=== PATIENT | female | born 1980 | race American Indian/Alaskan Native ===

== ENCOUNTER 2016-09-25 21:48 | Emergency (ER) | payer MEDICAID ==
--- NOTE | 2016-09-25 21:59 | ED PDOC ---
Arrival/HPI - General Time Seen by Provider: 09/25/16 21:50 Historian: Patient - History of Present Illness Narrative History of Present Illness (Text): 09/25/16 21:58 Tamiko Gill is a 36 year old female, whose past medical history includes diabetes, right foot ulcer, renal failure, and anemia, who presents to the Emergency department brought in by EMS for abnormal lab values. Patient states she was following up on bloodwork yesterday at her PMD's office after she was discharged from [facility] [place] [facility] 1 week prior. Patient states she was advised by her PMD to come to the hospital for abnormal lab values. Patient denies any fever, chills, chest pain, shortness of breath, nausea, vomiting, diarrhea, urinary symptoms, back pain, neck pain, headache, dizziness, or any other complaints. PMD: Dr. Bunch Symptom Onset: Gradual Symptom Course: Unchanged Activities at Onset: Rest, Light Context: Home Past Medical History - Provider Review Nursing Documentation Reviewed: Yes - Past History Past History: No Previous - Infectious Disease Hx of Infectious Diseases: None - Tetanus Immunization Tetanus Immunization: Unknown - Cardiac Hx Cardiac Disorders: No - Pulmonary Hx Respiratory Disorders: No - Neurological Other/Comment: NEUROPATHY - HEENT Hx HEENT Disorder: No - Renal Hx Renal Disorder: No - Endocrine/Metabolic Hx Diabetes Mellitus Type 2: Yes - Hematological/Oncological Hx Blood Disorders: No Other/Comment: RIGHT LEG DVT - Integumentary Hx Dermatological Disorder: No - Musculoskeletal/Rheumatological Hx Falls: No - Gastrointestinal Hx Gastrointestinal Disorders: No - Genitourinary/Gynecological Hx Genitourinary Disorders: No - Psychiatric Hx Depression: No Hx Emotional Abuse: No Hx Physical Abuse: No Hx Substance Use: No - Surgical History Hx Section: Yes - Suicidal Assessment Feels Threatened In Home Enviroment: No Family/Social History - Physician Review Nursing Documentation Reviewed: Yes Family/Social History: Unknown Family HX Smoking Status: Never Smoked Hx Alcohol Use: No Hx Substance Use: No Hx Substance Use Treatment: No Allergies/Home Meds Allergies/Adverse Reactions: Allergies No Known Allergies Allergy (Verified 02/17/12 17:37) Home Medications: Home Meds Medication Instructions Recorded Confirmed Insulin Aspart, Recombinant 5 unit SQ TID 09/25/16 09/25/16 [Novolog] Insulin Detemir [Levemir] 18 unit SC BID 09/25/16 09/25/16 Pantoprazole [Protonix] 40 mg PO BID 09/25/16 09/25/16 Pregabalin [Lyrica] 75 mg PO TID 09/25/16 09/25/16 Sodium Bicarbonate [Sodium 325 mg PO TID 09/25/16 09/25/16 Bicarbonate] hydrALAZINE [hydralazine 5 mg PO TID 09/25/16 09/25/16 Hydrochloride] Review of Systems - Physician Review All systems were reviewed & negative as marked: Yes - Review of Systems Constitutional: Normal. absent: Fevers Eyes: Normal ENT: Normal Respiratory: Normal. absent: SOB, Cough Cardiovascular: Normal. absent: Chest Pain Gastrointestinal: Normal. absent: Abdominal Pain, Diarrhea, Nausea, Vomiting Genitourinary Female: Normal. absent: Dysuria, Frequency, Hematuria, Urine Output Changes Musculoskeletal: Normal. absent: Back Pain, Neck Pain Skin: Normal. absent: Rash Neurological: Normal. absent: Headache, Dizziness Endocrine: Normal Hemo/Lymphatic: Normal Psychiatric: Normal Physical Exam Vital Signs Reviewed: Yes Vital Signs Temp Pulse Resp BP Pulse Ox 09/25/16 22:12 98.2 F 90 18 159/103 H 97 Temperature: Afebrile Blood Pressure: Hypertensive Pulse: Regular Respiratory Rate: Normal Appearance: Positive for: Well-Appearing, Non-Toxic, Comfortable Pain Distress: None Mental Status: Positive for: Alert and Oriented X 3 - Systems Exam Head: Present: Atraumatic, Normocephalic Pupils: Present: PERRL Extroacular Muscles: Present: EOMI Conjunctiva: Present: Normal Mouth: Present: Moist Mucous Membranes Neck: Present: Normal Range of Motion Respiratory/Chest: Present: Clear to Auscultation, Good Air Exchange. No: Respiratory Distress, Accessory Muscle Use Cardiovascular: Present: Regular Rate and Rhythm, Normal S1, S2. No: Murmurs Abdomen: Present: Normal Bowel Sounds. No: Tenderness, Distention, Peritoneal Signs Back: Present: Normal Inspection Upper Extremity: Present: Normal Inspection. No: Cyanosis, Edema Lower Extremity: Present: Normal Inspection. No: Edema Neurological: Present: GCS=15, CN II-XII Intact, Speech Normal Skin: Present: Warm, Dry, Normal Color. No: Rashes Psychiatric: Present: Alert, Oriented x 3, Normal Insight, Normal Concentration Medical Decision Making ED Course and Treatment: 09/25/16 21:58 Impression: 36 year old female presents for abnormal lab values. Differential Diagnosis included but are not limited to: renal insufficiency vs. Plan: -- Labs, lipase, troponin -- UA, urine drug screen -- Reassess and disposition Progress Notes: 09/26/16 01:29 On reevaluation the patient is in no acute distress. I have discussed the results and plan with the patient, who expresses understanding. Patient given the opportunity to ask question, all questions were answered and there is agreement with the plan to discharge the patient home. Patient is stable for discharge. Patient was instructed to follow up with physician/clinic in 1-2 days or return if symptoms persist/worsen or new concerning symptoms arise. Re-evaluation Time: 01:29 Reassessment Condition: Re-examined, Improved - Lab Interpretations Lab Results: 09/25/16 22:40 09/25/16 22:40 Lab Results 09/26/16 02:30: POC Glucose (mg/dL) 177 H 09/26/16 00:13: Urine Color Yellow, Urine Appearance Cloudy, Urine pH 6.0, Ur Specific [place] 1.020, Urine Protein 100 H, Urine Glucose (UA) Negative, Urine Ketones Negative, Urine Blood Moderate H, Urine Nitrate Negative, Urine Bilirubin Negative, Urine Urobilinogen 0.2, Ur Leukocyte Esterase Large H, Urine RBC 2 - 5, Urine WBC Tntc, Ur Epithelial Cells 0 - 2, Urine Bacteria Mod, Urine HCG, Qual Negative 09/25/16 22:40: Sodium 139, Potassium 4.0, Chloride 108 H, Carbon Dioxide 19 L, Anion Gap 16, BUN 43 H, Creatinine 3.3 H, Est GFR ( Amer) 19, Est GFR ( Non-Af Amer) 16, Random Glucose 196 H, Calcium 8.6, Total Bilirubin 0.5, AST 12 L, ALT < 6 L, Alkaline Phosphatase 79, Troponin I < 0.01, Total Protein 8.1, Albumin 3.3, Globulin 4.8, Albumin/Globulin Ratio 0.7 L, Lipase 25 09/25/16 22:40: WBC 10.8, RBC 2.90 L, Hgb 8.1 L, Hct 25.2 L, MCV 86.9, MCH 27.9 , MCHC 32.1, RDW 14.3, Plt Count 470 H, MPV 8.4, Gran % 80.4 H, Lymph % (Auto) 11.6 L, [place] % (Auto) 6.4 H, Eos % (Auto) 1.4 L, Baso % (Auto) 0.2, Gran # 8.71 H, Lymph # 1.3, [place] # 0.7 H, Eos # 0.2, Baso # 0.02 I have reviewed the lab results: Yes - Medication Orders Current Medication Orders: Discontinued Medications Cephalexin Monohydrate (Keflex) 500 mg PO STAT STA PRN Reason: Protocol Stop: 09/26/16 01:29 - Scribe Statement The provider has reviewed the documentation as recorded by the Bhanu Llamas Provider Scribe Attestation: All medical record entries made by the Scribe were at my direction and personally dictated by me. I have reviewed the chart and agree that the record accurately reflects my personal performance of the history, physical exam, medical decision making, and the department course for this patient. I have also personally directed, reviewed, and agree with the discharge instructions and disposition. Disposition/Present on Arrival - Present on Arrival Any Indicators Present on Arrival: No History of DVT/PE: Yes History of Uncontrolled Diabetes: Yes Urinary Catheter: No History Surgical Site Infection Following: None - Disposition Have Diagnosis and Disposition been Completed?: Yes Diagnosis: Renal insufficiency, Urinary tract infection Disposition: HOME/ ROUTINE Disposition Time: 01:29 Patient Problems: Current Active Problems Problem Status Onset Renal insufficiency Acute Urinary tract infection Acute Condition: GOOD Discharge Instructions (ExitCare): Urinary Tract Infection in Women (ED), Impaired Kidney Function (ED) Prescriptions: Cephalexin [Keflex] 500 mg PO BID #14 capsule Referrals: Kyler Bunch Jr., MD [Primary Care Provider] - Follow up with primary
[2016-09-25 22:13] VITALS: BMI 21.2
[2016-09-25 22:48] LABS: BASO # 0.02 K/mm3 (0.0-2.0); BASO % 0.2 % (0.0-3.0); EOS # 0.2 (0.0-0.7); EOS % 1.4 % (1.5-5.0); GRAN # 8.71 (1.4-6.5); GRAN % 80.4 % (50.0-68.0); HEMOGLOBIN 8.1 g/dL (12.0-16.0); LYMPH # 1.3 (1.2-3.4); LYMPH % 11.6 % (22.0-35.0); MEAN CELL VOLUME 86.9 fl (80.0-105.0); MEAN CORPUSCULAR HEMOGLOBIN 27.9 pg (25.0-35.0); MEAN CORPUSCULAR HGB CONC 32.1 g/dl (31.0-37.0); MEAN PLATELET VOLUME 8.4 fl (7.0-11.0); MONO # 0.7 (0.1-0.6); MONO % 6.4 % (1.0-6.0); PLATELET COUNT 470 10^3/uL (120.0-450.0); RED CELL DISTRIBUTION WIDTH 14.3 % (11.5-14.5); WHITE BLOOD COUNT 10.8 10^3/ul (4.5-11.0)
[2016-09-25 22:57] LABS: ALB/GLOB RATIO 0.7 (1.1-1.8); ALBUMIN 3.3 g/dL (3.0-4.8); AST/SGOT 12 U/L (15-39); BLOOD UREA NITROGEN 43 mg/dL (7-21); CALCIUM 8.6 mg/dL (8.4-10.5); GFR AFRICAN-AMERICAN 19; GFR NON-AFRICAN AMERICAN 16; LIPASE 25 U/L (23-300)
[2016-09-25 22:58] LABS: ALT/SGPT < 6 U/L (7-56)
[2016-09-25 23:08] LABS: TROPONIN I < 0.01 ng/mL
[2016-09-26 00:57] LABS: URINE BILIRUBIN NEGATIVE (NEGATIVE); URINE BLOOD MODERATE (NEGATIVE); URINE GLUCOSE (UA) NEGATIVE (NEGATIVE); URINE LEUKOCYTE ESTERASE LARGE Leu/uL (NEGATIVE); URINE NITRATE NEGATIVE (NEGATIVE); URINE PROTEIN 100 mg/dL (<30 mg/dL); URINE UROBILINOGEN 0.2 E.U./dL (<1 E.U./dL)
[2016-09-26 01:05] LABS: HCG,QUALITATIVE URINE NEGATIVE (NEGATIVE)
[2016-09-26 01:07] LABS: URINE COLOR YELLOW (YELLOW)
[2016-09-26 01:08] LABS: URINE APPEARANCE CLOUDY (CLEAR)
[2016-09-26 01:15] LABS: URINE BACTERIA MOD (NEG); URINE EPITHELIAL CELLS 0 - 2 /hpf (0-5); URINE WBC TNTC /hpf (0-6)
[2016-09-26 06:22] VITALS: TEMP 98; O2SAT 100
[2016-09-26 09:01] VITALS: BP 158/99; PULSE 88; RESP 18
--- NOTE | 2016-09-26 11:49 | CARD ---
APPROVED REPORT EKG Measurement Heart [id number] <Conclusion> Normal sinus rhythm Normal ECG
== END 2016-09-26 08:50 | disposition home or self-care (01) ==
LOC: ED 21:48
DX: N39.0 Urinary tract infection, site not specified (principal); N28.9 Disorder of kidney and ureter, unspecified; E11.9 Type 2 diabetes mellitus without complications

== ENCOUNTER 2016-10-26 18:41 | Inpatient (IN) | payer MEDICAID, OTHER ==
[2016-10-26 18:41] VITALS: BMI 21.2
--- NOTE | 2016-10-26 19:01 | ED PDOC ---
Arrival/HPI - General Time Seen by Provider: 10/26/16 18:48 Historian: Patient - Critical Care Critical Care Minutes: 45 minutes - History of Present Illness Narrative History of Present Illness (Text): 10/26/16 18:58 A 36 year old female whose past medical history includes, presents to the emergency department with pressure around her sinuses, abdominal pain with associated nausea and vomiting 3 days ago. She notes that she has been having bilateral flank pain, fevers, and chills. Patient denies any sore throat, cough , shortness of breath, urinary/bowel changes, new rashes, headache, vision changes or other associated symptoms. PMD: Dr. Bunch Symptom Onset: Sudden Symptom Course: Unchanged Activities at Onset: Rest, Light Context: Home Past Medical History - Provider Review Nursing Documentation Reviewed: Yes - Past History Past History: No Previous - Infectious Disease Hx of Infectious Diseases: None - Tetanus Immunization Tetanus Immunization: Unknown - Cardiac Hx Cardiac Disorders: No - Pulmonary Hx Respiratory Disorders: No - Neurological Other/Comment: NEUROPATHY - HEENT Hx HEENT Disorder: No - Renal Hx Renal Disorder: No - Endocrine/Metabolic Hx Diabetes Mellitus Type 2: Yes - Hematological/Oncological Hx Blood Disorders: No Other/Comment: RIGHT LEG DVT - Integumentary Hx Dermatological Disorder: No - Musculoskeletal/Rheumatological Hx Falls: No - Gastrointestinal Hx Gastrointestinal Disorders: No - Genitourinary/Gynecological Hx Genitourinary Disorders: No - Psychiatric Hx Depression: No Hx Emotional Abuse: No Hx Physical Abuse: No Hx Substance Use: No - Surgical History Hx Section: Yes - Suicidal Assessment Feels Threatened In Home Enviroment: No Family/Social History - Physician Review Nursing Documentation Reviewed: Yes Family/Social History: No Known Family HX Smoking Status: Never Smoked Hx Alcohol Use: No Hx Substance Use: No Hx Substance Use Treatment: No Allergies/Home Meds Allergies/Adverse Reactions: Allergies vancomycin Allergy (Verified 10/26/16 18:55) RASH Home Medications: Home Meds Medication Instructions Recorded Confirmed Insulin Aspart, Recombinant 5 unit SQ TID 09/25/16 10/26/16 [Novolog] Insulin Detemir [Levemir] 18 unit SC BID 09/25/16 10/26/16 Pantoprazole [Protonix] 40 mg PO BID 09/25/16 10/26/16 Sodium Bicarbonate [Sodium 325 mg PO TID 09/25/16 10/26/16 Bicarbonate] Review of Systems - Physician Review All systems were reviewed & negative as marked: Yes - Review of Systems Constitutional: Fevers. absent: Night Sweats ENT: Sinus Congestion. absent: Sore Throat Respiratory: absent: SOB, Cough Cardiovascular: absent: Chest Pain Gastrointestinal: Abdominal Pain, Nausea, Vomiting. absent: Diarrhea Genitourinary Female: Urine Output Changes (no changes). absent: Dysuria, Frequency, Hematuria Musculoskeletal: Back Pain (bilateral flank pain), Neck Pain Neurological: absent: Headache, Dizziness Physical Exam Vital Signs Reviewed: Yes Vital Signs Temp Pulse Resp BP Pulse Ox 10/26/16 20:00 82 20 73/48 L 100 10/26/16 19:30 84 24 68/41 L 100 10/26/16 19:13 98.5 F 82 25 H 73/39 L 100 10/26/16 19:03 95.7 F L 83 18 90/58 L 100 10/26/16 18:57 95.7 F L 88 16 77/69 L 100 Temperature: Hypothermic Blood Pressure: Hypotensive Pulse: Regular Respiratory Rate: Normal Appearance: Positive for: Ill-Appearing Pain Distress: Mild Mental Status: Positive for: Lethargic (but fully arousable) - Systems Exam Head: Present: Atraumatic, Normocephalic Pupils: Present: PERRL Conjunctiva: Present: Normal Mouth: Present: Moist Mucous Membranes Pharnyx: Present: Normal. No: ERYTHEMA, EXUDATE Neck: Present: Normal Range of Motion Respiratory/Chest: Present: Clear to Auscultation, Good Air Exchange. No: Respiratory Distress, Accessory Muscle Use Cardiovascular: Present: Regular Rate and Rhythm, Normal S1, S2. No: Murmurs Abdomen: Present: Normal Bowel Sounds. No: Tenderness, Distention, Peritoneal Signs Back: Present: CVA Tenderness (Bilateral CVA Tenderness ) Upper Extremity: Present: Normal Inspection. No: Cyanosis, Edema Lower Extremity: Present: Normal Inspection, Other (Diabetic Ulcer on Left Foot) . No: Edema Neurological: Present: GCS=15, CN II-XII Intact, Speech Normal Skin: Present: Warm, Dry, Normal Color. No: Rashes Psychiatric: Present: Oriented x 3, Lethargic Medical Decision Making ED Course and Treatment: 10/26/16 19:03 Impression: A 36 year old female presents with sinus congestion, bilateral flank pain, and neck pain. Fevers, chills, nausea, and vomiting earlier this week. Differential: sepsis vs. dka vs metabolic etiology Plan: -- EKG -- Chest X-ray -- Abdomen/Pelvis CT -- Brain CT -- Blood/Urine Cultures -- Labs -- Urinalysis -- IV Fluids -- Reassess and disposition Prior Visits: Notes and results from previous visits were reviewed. Patient was last seen in the emergency department on 09/25/2016. patient was advised by her PMD to come into the emergency department for further evaluation for abnormal lab results. Progress Notes: 10/26/16 20:15: Code sepsis called 10/26/16 20:30: case discussed with Dr. Merritt, ICU attending. Will take patient to ICU. Case was also discussed with surgical product sales consultant for trialysis catheter insertion, given persistent hypotension despite IVF administration per sepsis protocol. 10/26/16 21:10: Attempting to reach Dr. Preston for emergent dialysis. Patient's blood pressure has continued to be low despite heavy fluid administration will give additional 500 cc of fluids. 10/26/16 21:27: Case discussed with Dr. Preston. Said he will come see the patient in the emergency room and to start a sodium bicarb drip. 10/26/16 21:30: market president said he discussed with Dr. Richard and will await renal doctor to see the patient prior to catheter insertion. - Critical Care Critical Care Minutes: 45 minutes - Lab Interpretations Lab Results: 10/26/16 19:30 10/26/16 19:30 Lab Results 10/26/16 20:30: pCO2 13 L*, pO2 161.0 H, HCO3 3.1 L*, ABG pH 6.99 L*, ABG Total CO2 3.5 L, ABG O2 Saturation 99.9 H, ABG Base Excess -26.6 L, ABG Potassium 4.3 , Sodium 130.0 L, Chloride 107.0, Glucose 152 H, Lactate 0.4 L, FiO2 21.0, Arterial Blood Potassium 4.3 10/26/16 20:30: PT 13.3 H, INR 1.23 H, APTT 40.6 H 10/26/16 20:00: Urine Opiates Screen Negative, Urine Methadone Screen Negative, Ur Barbiturates Screen Negative, Ur Phencyclidine Scrn Negative, Ur Amphetamines Screen Negative, U Benzodiazepines Scrn Negative, U Oth Cocaine Metabols Negative, U Cannabinoids Screen Negative 10/26/16 20:00: Urine Color Light yellow, Urine Appearance Cloudy, Urine pH 6.0 , Ur Specific [place] 1.025, Urine Protein >=300 H, Urine Glucose (UA) Negative , Urine Ketones Negative, Urine Blood Large H, Urine Nitrate Negative, Urine Bilirubin Negative, Urine Urobilinogen 0.2, Ur Leukocyte Esterase Large H, Urine RBC Tntc, Urine WBC Tntc, Urine Bacteria Large 10/26/16 19:30: Alcohol, Quantitative < 10 10/26/16 19:30: Sodium 131 L, Chloride 104, Potassium 5.2 H, Carbon Dioxide < 5 L D, Anion Gap 27 H, BUN 157 H*, Creatinine 11.0 H*, Est GFR ( Amer) 5, Est GFR (Non-Af Amer) 4, Random Glucose 170 H, Calcium 9.2, Phosphorus 10.7 H, Magnesium 2.0, Total Bilirubin 0.6, AST 13 L, ALT 12, Alkaline Phosphatase 121, Lactate Dehydrogenase 427, Total Creatine Kinase 24 L, Troponin I < 0.01, Total Protein 9.0 H, Albumin 3.6, Globulin 5.3, Albumin/Globulin Ratio 0.7 L, Lipase 103 10/26/16 19:30: pO2 210 H, VBG pH 6.97 L*, VBG pCO2 16.0 L*, VBG HCO3 3.7 L, VBG Total CO2 4.2 L, VBG O2 Sat (Calc) 100.0 H, VBG Base Excess -26.1 L, VBG Potassium 5.4 H, Sodium 127.0 L, Chloride 101.0, Glucose 173 H, Lactate 0.6 L, FiO2 21.0, Venous Blood Potassium 5.4 H 10/26/16 19:30: WBC 25.6 H* D, RBC 2.85 L, Hgb 7.6 L, Hct 22.9 L, MCV 80.4 D, MCH 26.7, MCHC 33.2, RDW 16.2 H, Plt Count 377, MPV 8.8, Gran % 85.9 H, Lymph % (Auto) 7.1 L, [place] % (Auto) 6.1 H, Eos % (Auto) 0.7 L, Baso % (Auto) 0.2, Gran # 22.00 H, Lymph # 1.8, [place] # 1.6 H, Eos # 0.2, Baso # 0.04, ESR 146 H I have reviewed the lab results: Yes - RAD Interpretation Radiology Orders: 10/26/16 18:58 CHEST PORTABLE [RAD] Stat 10/26/16 19:00 ABD & PELVIS W/O PO OR IV CONT [CT] Stat Brain [HEAD W/O CONTRAST] [CT] Stat - EKG Interpretation Interpreted by ED Physician: Yes Type: 12 lead EKG - Medication Orders Current Medication Orders: Sodium Bicarbonate 150 meq/ (Dextrose) 1,150 mls @ 150 mls/hr IV .Q7H40M STA Stop: 10/27/16 05:08 Last Admin: 10/26/16 21:40 Dose: 150 mls/hr Discontinued Medications Clindamycin Phosphate (Cleocin) Confirm Administered Dose 600 mg .ROUTE .STK- MED ONE Stop: 10/26/16 20:29 Last Admin: 10/26/16 21:00 Dose: 600 mg Sodium Chloride 1,430 ml/ IV (SUPPLIES) 1,430 mls @ 2,857.62 mls/hr IV ONCE ONE PRN Reason: 60 ML/KG/HR Stop: 10/26/16 18:59 Last Admin: 10/26/16 19:30 Dose: 2,857.62 mls/hr Meropenem 1g/NS 100mL IVPB (Meropenem 1g/Ns 100ml Ivpb) 1 gm in 100 mls @ 100 mls/hr IVPB STAT STA PRN Reason: Protocol Stop: 10/26/16 21:18 Last Admin: 10/26/16 21:31 Dose: 100 mls/hr Clindamycin Phosphate 600 mg/ (Sodium Chloride) 54 mls @ 108 mls/hr IVPB STAT STA PRN Reason: Protocol Stop: 10/26/16 20:49 Last Admin: 10/26/16 20:49 Dose: 108 mls/hr Sodium Chloride (Sodium Chloride 0.9%) 500 mls @ 999 mls/hr IV .Q31M STA Stop: 10/26/16 21:33 Last Admin: 10/26/16 21:30 Dose: 999 mls/hr Sodium Bicarbonate 75 meq/ (Sodium Chloride) 1,075 mls @ 150 mls/hr IV .Q7H10M JERRICA Sodium Bicarbonate (Sodium Bicarbonate 8.4% (50 Meq) Syringe) 50 meq IVP ONCE ONE Stop: 10/26/16 21:16 Last Admin: 10/26/16 21:40 Dose: 50 meq - Scribe Statement The provider has reviewed the documentation as recorded by the Arturibjayro Krishnan Provider Arturibe Attestation: All medical record entries made by the Bhanu were at my direction and personally dictated by me. I have reviewed the chart and agree that the record accurately reflects my personal performance of the history, physical exam, medical decision making, and the department course for this patient. I have also personally directed, reviewed, and agree with the discharge instructions and disposition. Disposition/Present on Arrival - Present on Arrival Any Indicators Present on Arrival: Yes History of DVT/PE: Yes History of Uncontrolled Diabetes: Yes Urinary Catheter: No History Surgical Site Infection Following: None - Disposition Have Diagnosis and Disposition been Completed?: Yes Diagnosis: Renal failure, Sepsis, Metabolic acidosis, Urinary tract infection Disposition: HOSPITALIZED Disposition Time: 20:15 Patient Plan: Admission Condition: CRITICAL
[2016-10-26 19:57] LABS: VENOUS BLOOD GAS BASE EXCESS -26.1 mmol/L (0.0-2.0)
[2016-10-26 19:58] LABS: BASO # 0.04 K/mm3 (0.0-2.0); BASO % 0.2 % (0.0-3.0); EOS # 0.2 (0.0-0.7); EOS % 0.7 % (1.5-5.0); GRAN % 85.9 % (50.0-68.0); LYMPH # 1.8 (1.2-3.4); LYMPH % 7.1 % (22.0-35.0); MEAN CELL VOLUME 80.4 fl (80.0-105.0); MEAN CORPUSCULAR HEMOGLOBIN 26.7 pg (25.0-35.0); MEAN CORPUSCULAR HGB CONC 33.2 g/dl (31.0-37.0); MEAN PLATELET VOLUME 8.8 fl (7.0-11.0); MONO # 1.6 (0.1-0.6); MONO % 6.1 % (1.0-6.0); RED CELL DISTRIBUTION WIDTH 16.2 % (11.5-14.5)
[2016-10-26 20:00] LABS: VENOUS BLOOD PH 6.97 (7.32-7.43)
[2016-10-26 20:08] LABS: ALB/GLOB RATIO 0.7 (1.1-1.8); ALKALINE PHOSPHATASE 121 U/L (38-126); ALT/SGPT 12 U/L (7-56); AST/SGOT 13 U/L (14-36); BILIRUBIN,TOTAL 0.6 mg/dL (0.2-1.3); CALCIUM 9.2 mg/dL (8.4-10.5); CHLORIDE 104 mmol/L (98-107); GFR AFRICAN-AMERICAN 5; GLUCOSE,RANDOM 170 mg/dL (70-110); LIPASE 103 U/L (23-300); PHOSPHOROUS 10.7 mg/dL (2.5-4.5); POTASSIUM 5.2 mmol/L (3.6-5.0); SODIUM 131 mmol/L (132-148)
[2016-10-26 20:11] LABS: HEMATOCRIT 22.9 % (36.0-48.0); WHITE BLOOD COUNT 25.6 10^3/ul (4.5-11.0)
[2016-10-26] MEDS ORDERED: Meropenem 1g/NS 100mL IVPB 1 GM/100 ML PIGGYBACK IVPB STA (20:19)
[2016-10-26 20:23] LABS: URINE BILIRUBIN NEGATIVE (NEGATIVE); URINE BLOOD LARGE (NEGATIVE); URINE GLUCOSE (UA) NEGATIVE (NEGATIVE); URINE KETONE NEGATIVE (NEGATIVE); URINE LEUKOCYTE ESTERASE LARGE Leu/uL (NEGATIVE); URINE PROTEIN >=300 mg/dL (<30 mg/dL); URINE UROBILINOGEN 0.2 E.U./dL (<1 E.U./dL)
[2016-10-26 20:24] LABS: URINE APPEARANCE CLOUDY (CLEAR); URINE COLOR LIGHT YELLOW (YELLOW)
[2016-10-26 20:28] LABS: URINE RBC TNTC /hpf (0-2); URINE WBC TNTC /hpf (0-6)
[2016-10-26 20:28] LABS: BLOOD UREA NITROGEN 157 mg/dL (7-21); CARBON DIOXIDE < 5 mmol/L (21-33); TROPONIN I < 0.01 ng/mL
[2016-10-26] MEDS ORDERED: Clindamycin 150 mg/mL Inj ONE (20:28)
[2016-10-26 20:29] LABS: URINE BACTERIA LARGE (NEG)
[2016-10-26 20:39] LABS: ARTERIAL BLOOD GAS HCO3 3.1 mmol/L (21-28); ARTERIAL BLOOD GAS PH 6.99 (7.35-7.45)
[2016-10-26] MEDS ORDERED: Sodium Chloride 0.9% 500 ML IV STA (21:03)
[2016-10-26] MEDS ORDERED: Sodium Bicarbonate (8.4%) 50 Meq Syringe IVP ONE (21:15)
[2016-10-26 21:23] LABS: INR 1.23 (0.93-1.08); PARTIAL THROMBOPLASTIN TIME 40.6 Seconds (23.7-30.8)
[2016-10-26] MEDS ORDERED: Sodium Bicarbonate 8.4% 150 MEQ in Dextrose 5% In Water 1,000 ML IV STA (21:29)
[2016-10-26] MEDS ORDERED: Insulin Detemir 100 units/ml Vial (Levemir) SC SCH (22:15)
[2016-10-26] MEDS ORDERED: Pantoprazole 40 mg EC Tab PO SCH (22:15)
--- NOTE | 2016-10-26 22:44 | CP.PCM.HP ---
<Fortino Holman - Last Filed: 10/27/16 00:16> History of Present Illness - History of Present Illness History of Present Illness: H&P/ICU Consult for Dr. Merritt 36 F with a PMHx of HTN, IDDM, Rt leg DVT and anemia presenting [place] [facility] with complaints of abdominal pain x 3 days. Pt states that she has been having abdominal pain that radiates to her flanks b/l for 3 days with associated nausea and vomitting. Pt started to become feverish and experience chills and more fatigued and decided to seek medical attention. Pt also stated that she has been feeling an increased facial/sinus pressure as well for the past week as well as cloudy urine. Pt noted that she has a hx of diabetic ulcer on her rt ft. Pt was seen and examined at bedside. Pt is shivering and has se hugger on. Pt states that she is still experiencing abdominal pain rated at a 6/10. Sorenson catheter was placed. Pt was hypotensive in the ED and subsequently received 2 L NS bolus and was started a 3rd L with a bicarb drip 150mEq, with vitals beginning to stablize. Patient denies any sore throat, cough, shortness of breath, urinary/bowel changes, new rashes, headache, vision changes or other associated symptoms. PMHx: HTN, DM2, Anemia, Rt leg DVT PSHx: , Rt leg vasc surgery Family Hx: Non-Contributory SHx: Denied tobacco/etoh/illicit drugs, pt is wheelchair bound Allergies: Vancomycin Home Meds: ferrous sulfate 324 mg TID, insulin aspart 5 u TID, Levemir 18 u BID , Protonix 40mg BID, Sodium Bicarbonate 325 mg TID PMD: Dr. Bunch Present on Admission - Present on Admission Any Indicators Present on Admission: Yes History of DVT/PE: Yes History of Uncontrolled Diabetes: Yes Review of Systems - Review of Systems Review of Systems: As per HPI otherwise negative Past Patient History - Infectious Disease Hx of Infectious Diseases: None - Tetanus Immunizations Tetanus Immunization: Unknown - Past Social History Smoking Status: Never Smoked - CARDIAC Hx Cardiac Disorders: No - PULMONARY Hx Respiratory Disorders: No - NEUROLOGICAL Other/Comment: NEUROPATHY - HEENT Hx HEENT Problems: No - RENAL Hx Chronic Kidney Disease: No - ENDOCRINE/METABOLIC Hx Diabetes Mellitus Type 2: Yes - HEMATOLOGICAL/ONCOLOGICAL Hx Blood Disorders: No Other/Comment: RIGHT LEG DVT - INTEGUMENTARY Hx Dermatological Problems: No - MUSCULOSKELETAL/RHEUMATOLOGICAL Hx Falls: No - GASTROINTESTINAL Hx Gastrointestinal Disorders: No - GENITOURINARY/GYNECOLOGICAL Hx Genitourinary Disorders: No - PSYCHIATRIC Hx Depression: No Hx Emotional Abuse: No Hx Physical Abuse: No Hx Substance Use: No - SURGICAL HISTORY Hx Section: Yes Meds Allergies/Adverse Reactions: Allergies Allergy/AdvReac Type Severity Reaction Status Date / Time vancomycin Allergy RASH Verified 10/26/16 18:55 Physical Exam - Constitutional Appears: Chronically Ill - Head Exam Head Exam: ATRAUMATIC, NORMAL INSPECTION, NORMOCEPHALIC - Eye Exam Eye Exam: EOMI, Normal appearance, PERRL Pupil Exam: NORMAL ACCOMODATION, PERRL - ENT Exam ENT Exam: Mucous Membranes Moist, Normal Exam - Neck Exam Neck exam: Positive for: Normal Inspection - Respiratory Exam Respiratory Exam: Clear to Auscultation Bilateral, NORMAL BREATHING PATTERN - Cardiovascular Exam Cardiovascular Exam: REGULAR RHYTHM, +S1, +S2 - GI/Abdominal Exam GI & Abdominal Exam: Normal Bowel Sounds, Soft. absent: Tenderness - Extremities Exam Extremities exam: Positive for: normal inspection - Back Exam Back exam: CVA tenderness (L), CVA tenderness (R) - Neurological Exam Neurological exam: Alert, CN II-XII Intact, Oriented x3, Reflexes Normal - Psychiatric Exam Psychiatric exam: Normal Affect, Normal Mood - Skin Skin Exam: Dry, Intact, Normal Color, Warm Results - Vital Signs Recent Vital Signs: Last Vital Signs Temp 90.4 F L 10/26/16 21:55 Pulse 80 10/26/16 21:55 Resp 10 L 10/26/16 21:55 BP 117/59 L 10/26/16 21:55 Pulse Ox 100 10/26/16 21:55 - Labs Result Diagrams: 10/26/16 23:45 10/26/16 19:30 Assessment & Plan - Assessment and Plan (Free Text) Assessment: 36 F with PMHx of HTN, uncontrolled IDDM and rt LE DVT admitted to the icu for septic shock 2/2 likely UTI/pyelonephritis, renal failure and metabolic acidosis. Neuro: Lethargic but arousable AAOx3, CTH negative of acute intracranial pathology hypothermic, se hugger target normothermia, continue to monitor Pulm: Stable, 02 sat 100% on RA maintain 02 sat >92% HOB >30 CXR negative for pulm pathology CVS: Septic shock fluid responsive received approx 2.5L NS bolus Likely due to UTI , on meropenem 1g should re-dose q24h for CrCl < 10 ml/min no pressors required at this time continue to monitor for HD instability, surgery consulted, Dr. Richard for trialysis catheter placement in case need emergent [facility] /pressors Renal: EMMETT on CKD in the setting of septic shock approx 200 cc urine uop with straight cath, sorenson in place, monitor I&Os Severe metabolic acidosis, Nephrology Dr. Preston consulted, continue to monitor acidosis - may require emergent dialysis fu random urine for sodium and creatinine Trend renal function with aggressive fluid resuscitiation GI NPO GI ppx with protonix Heme Leukocytosis 2/2 sepsis 2/2 UTI Merrem abx ID consulted, Dr. Lam ID UTI on merrem, ID consulted Dr. Lam hypothermic lactic acid wnl fu pct Endo hx IDDM Fu A1c SSI GI DVT ppx reviewed Seen reviewed and discussed with attending <Miguel Merritt Q - Last Filed: 10/27/16 01:08> Results - Vital Signs Recent Vital Signs: Last Vital Signs Temp 90.4 F L 10/26/16 21:55 Pulse 80 10/26/16 21:55 Resp 10 L 10/26/16 21:55 BP 117/59 L 10/26/16 21:55 Pulse Ox 100 10/26/16 21:55 - Labs Result Diagrams: 10/26/16 23:45 10/26/16 23:45 Labs: Laboratory Results - last 24 hr 10/26/16 10/26/16 10/26/16 23:45 23:45 23:45 WBC 23.7 H RBC 2.83 L Hgb 7.6 L Hct 22.4 L MCV 79.2 L MCH 26.9 MCHC 33.9 RDW 16.0 H Plt Count 364 MPV 8.7 pO2 78 H VBG pH 7.07 L* VBG pCO2 17.0 L* VBG HCO3 4.9 L VBG Total CO2 5.4 L VBG O2 Sat (Calc) 98.3 H VBG Base Excess -23.3 L VBG Potassium 4.6 Sodium 133 130.0 L Chloride 107 107.0 Glucose 249 H Lactate 0.5 L FiO2 21.0 Potassium 4.5 Carbon Dioxide 5 L D Anion Gap 26 H BUN 144 H* Creatinine 10.0 H* Est GFR ( Amer) 5 Est GFR (Non-Af Amer) 4 Random Glucose 235 H Lactic Acid Calcium 8.0 L Total Bilirubin 0.6 AST 12 L ALT 9 Alkaline Phosphatase 108 Total Protein 8.1 Albumin 3.0 Globulin 5.1 Albumin/Globulin Ratio 0.6 L Lipase 78 Venous Blood Potassium 4.6 10/26/16 23:45 WBC RBC Hgb Hct MCV MCH MCHC RDW Plt Count MPV pO2 VBG pH VBG pCO2 VBG HCO3 VBG Total CO2 VBG O2 Sat (Calc) VBG Base Excess VBG Potassium Sodium Chloride Glucose Lactate FiO2 Potassium Carbon Dioxide Anion Gap BUN Creatinine Est GFR ( Amer) Est GFR (Non-Af Amer) Random Glucose Lactic Acid 0.6 L Calcium Total Bilirubin AST ALT Alkaline Phosphatase Total Protein Albumin Globulin Albumin/Globulin Ratio Lipase Venous Blood Potassium Attending/Attestation - Attestation I have personally seen and examined this patient.: Yes I have fully participated in the care of the patient.: Yes I have reviewed all pertinent clinical information: Yes Notes (Text): 10/27/16 00:54 I agree with the above mentioned note and exam by the resident with the addition /exception of the followin36 y/o female with a PMHx Htn, DM (uncontrolled), history of DVT, bed bound and deconditioned with chronic lower extremity diabetic foot wounds, CKD diagnosed a few months ago who presented to the ED with the complaints of abdominal pain, lethargy and vomiting. Patient was found to have EMMETT in the ED with a BUN/Cr of 157/11.0. She was also hypotensive as well, responded appropriately to IVF bolus administration (Severe sepsis, not septic shock). In the ED straight cath obtained approximately 200cc of cloudy urine. Consideration for emergent dialysis was made and Nephrology was consulted. Discussed the case with Dr. Preston who came in and saw the patient at bedside. Acidosis improved slightly after IVF hydration; will continue to monitor her overnight for possible urine output and improvement in her acidosis. In the event that she does not improve , she is likely to be started on HD later today (Sun-10/27/16). I personally observed her CT of the abdomen, there does appear to be some perinephric stranding (R>L) indicating likely pyelonephritis, however preliminary reading by Vrgeorgi does not report any. At the least, she has urosepsis secondary to acute cystitis +/- pyelonephritis and has received clindamycin and Merrem in the ED (allergic to Vanco). ID Consulted for further antibiotics, given her Cr Cl at this time, she is not due for another dose until later today in the afternoon. Will continue hydrating with bicarb drip and give her an additional IVF bolus now. labs and images reviewed total time of care: 55 minutes
[2016-10-26] MEDS: Insulin Lispro (humaLOG) MEDIUM Coverage SC SCH (22:45)
--- NOTE | 2016-10-26 23:11 | CT ---
EXAM: CT Head Without Intravenous Contrast EXAM DATE/TIME: 10/26/2016 7:00 PM CLINICAL HISTORY: 36 years old, female; Pain; Headache TECHNIQUE: Axial computed tomography images of the head/brain without intravenous contrast. All CT scans at this facility use one or more dose reduction techniques, viz.: automated exposure control; ma/kV adjustment per patient size (including targeted exams where dose is matched to indication; i.e. head); or iterative reconstruction technique. COMPARISON: There are no prior studies for comparison. FINDINGS: Artifacts: Streak artifact degrades image quality. Brain: Ventricles are normal in size and configuration. There is no midline shift. There is a cavum septum pellucidum.There are no intra-axial or extra-axial mass lesions or areas of hemorrhage. There are no abnormal fluid collections. Odonnell-white differentiation is maintained. Ventricles: See above. Bones: Cranial vault is intact. Soft tissues: unremarkable Sinuses: There is no acute sinusitis. Ears and mastoids: Middle ears and mastoids are unremarkable Orbits: Orbital contents are unremarkable. IMPRESSION: No acute intracranial abnormality
--- NOTE | 2016-10-26 23:16 | CP.PCM.CON ---
History of Present Illness - History of Present Illness History of Present Illness: 36 yo F w/ pmh of dm w/ neuropathy, CKD, previous DVT, chronically bedbound secondary to leg weakness, with L foot ulcers, presented to ED this evening with nausea/vomiting, abd/flank pain and sinus pain, found to be profoundly hypotensive, have acute renal failure and severe metabolic acidosis, nephrology being consulted for possible emergent dialysis; Patient reports that about 1 week ago she noticed urine becoming cloudy but denies dysuria; she subsequently developed bilateral flank pain and has decreased urine output since past few days; ; vomiting started 3 days ago although none today; has not been eating since then; says throat has been very dry and even drinking water causes discomfort; also reporting new onset of bilateral sinus pain; In ED, patient found to have SBP in 70's and hypothermic; was given ~2.5L of NS bolus with improvement in BP; ~200 cc urine was obtained via straight cath before having sorenson placed; Past hospitalization: Admitted in [facility] [place] for around 1 week due to acidosis; was told then about having kidney disease, placed on bicarb tabs and was subsequently referred to [employer] office instructor who she saw only once; PMH: as above; bedbound since several months; Review of Systems - Constitutional Constitutional: As Per HPI, Chills - EENT Eyes: Change in Vision Nose/Mouth/Throat: As Per HPI, Sinus Pain - Cardiovascular Cardiovascular: Palpitations - Respiratory Respiratory: absent: Dyspnea - Gastrointestinal Gastrointestinal: As Per HPI, Abdominal Pain, Nausea, Vomiting. absent: Diarrhea - Genitourinary Genitourinary: As Per HPI, Pyuria - Musculoskeletal Musculoskeletal: absent: Arthralgias, Back Pain - Integumentary Additional comments: L foot ulcers reportedly healing well; - Neurological Neurological: Tingling Past Patient History - Infectious Disease Hx of Infectious Diseases: None - Tetanus Immunizations Tetanus Immunization: Unknown - Past Medical History & Family History Past Medical History?: Yes Pertinent Family History: Denies anyone with kidney disease; - Past Social History Smoking Status: Never Smoked - CARDIAC Hx Cardiac Disorders: No - PULMONARY Hx Respiratory Disorders: No - NEUROLOGICAL Other/Comment: NEUROPATHY - HEENT Hx HEENT Problems: No - RENAL Hx Chronic Kidney Disease: No - ENDOCRINE/METABOLIC Hx Diabetes Mellitus Type 2: Yes - HEMATOLOGICAL/ONCOLOGICAL Hx Blood Disorders: No Other/Comment: RIGHT LEG DVT - INTEGUMENTARY Hx Dermatological Problems: No - MUSCULOSKELETAL/RHEUMATOLOGICAL Hx Falls: No - GASTROINTESTINAL Hx Gastrointestinal Disorders: No - GENITOURINARY/GYNECOLOGICAL Hx Genitourinary Disorders: No - PSYCHIATRIC Hx Depression: No Hx Emotional Abuse: No Hx Physical Abuse: No Hx Substance Use: No - SURGICAL HISTORY Hx Section: Yes Meds Allergies/Adverse Reactions: Allergies Allergy/AdvReac Type Severity Reaction Status Date / Time vancomycin Allergy RASH Verified 10/26/16 18:55 - Medications Medications: Current Medications Heparin Sodium (Porcine) (Heparin) 5,000 units SC Q8 JERRICA PRN Reason: Protocol Sodium Bicarbonate 150 meq/ (Dextrose) 1,150 mls @ 150 mls/hr IV .Q7H40M STA Stop: 10/27/16 05:08 Last Admin: 10/26/16 21:40 Dose: 150 mls/hr Insulin Human Lispro (Humalog Med) 0 units SC ACHS JERRICA PRN Reason: Protocol Pantoprazole Sodium (Protonix Inj) 40 mg IVP Q12 COUNT INCLUDES THE [facility] Physical Exam - Constitutional Appears: No Acute Distress - Head Exam Head Exam: NORMOCEPHALIC - Eye Exam Eye Exam: absent: Scleral icterus - ENT Exam ENT Exam: Mucous Membranes Dry. absent: Mucous Membranes Moist Additional comments: b/l maxillary sinus tenderness; - Neck Exam Neck exam: Negative for: Lymphadenopathy - Respiratory Exam Respiratory Exam: Clear to Auscultation Bilateral, NORMAL BREATHING PATTERN. absent: Rales, Rhonchi, Wheezes, Respiratory Distress - Cardiovascular Exam Cardiovascular Exam: REGULAR RHYTHM, +S1, +S2 - GI/Abdominal Exam GI & Abdominal Exam: Soft, Tenderness Additional comments: bilateral CVA tenderness; - Exam Additional comments: sorenson in place draining small amount of pus in urine; - Extremities Exam Extremities exam: Positive for: normal capillary refill, pedal pulses present - Back Exam Back exam: CVA tenderness (L), CVA tenderness (R) - Neurological Exam Neurological exam: Alert, Oriented x3 Additional comments: mentating well; - Psychiatric Exam Psychiatric exam: Normal Affect, Normal Mood - Skin Skin Exam: Warm Results - Vital Signs Recent Vital Signs: Last Vital Signs Temp 90.4 F L 10/26/16 21:55 Pulse 80 10/26/16 21:55 Resp 10 L 10/26/16 21:55 BP 117/59 L 10/26/16 21:55 Pulse Ox 100 10/26/16 21:55 - Labs Result Diagrams: 10/26/16 23:45 10/26/16 23:45 - Imaging and Cardiology Chest x-ray Status: Image reviewed by me Additional comment: Lungs clear; Assessment & Plan (1) Acute renal failure Assessment and Plan: EMMETT on CKD in the setting of profound hypotension and likely sepsis; BP already much improved but awaiting improvement in urine output with IVF; pre-renal etiology may have already progressed to ATN; Severe metabolic acidosis with pH dangerously low; however, lungs are clear and patient with no need for additional FIO2; only mild hyperkalemia; While efficient HD can quickly improve acidosis, with patient's degree of uremia there is a substantial risk of dialysis dysequilibrium if dialyzed aggressively; -If UO does not improve and FIO2 requirement increases substantially, or acidosis remains unchanged over next 1-2 hours, will initiate LEGISLATIVE ANALYST emergently; otherwise, if remains oliguric, will initiate LEGISLATIVE ANALYST slowly; -Continue aggressive volume resuscitation -Random urine for sodium and creatinine; Status: Acute (2) CKD (chronic kidney disease) Assessment and Plan: Late CKD IV per labs from last month (although unclear if there was acute component at that time); 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, likely due to diabetic nephropathy (large kidneys on CT are also suggestive); Should pursue workup to look for other possible causes; -checking C3 and C4, hep B and C serologies, HIV Ab; -random urine for protein, microalbumin and creatinine; Status: Acute (3) Anemia Assessment and Plan: Likely due to advanced CKD; -checking iron studies, may benefit from EPO; Status: Acute (4) Metabolic acidosis Assessment and Plan: Severe, increased anion gap metabolic acidosis in the setting of advanced renal insufficiency; lactate normal and no indication that there is ongoing acid production; started on bicarb drip (D5W w/ 150 meq NaHCO3 at 150 cc/hr); may need HD to correct if UO not improving; Status: Acute (5) Sepsis Assessment and Plan: Likely due to UTI with pus in urine; agree with starting meropenem 1g, should re -dose q24h for CrCl < 10 ml/min; no renal dose adjustment needed for clinda; Status: Acute
--- NOTE | 2016-10-26 23:19 | CT ---
EXAM: CT Abdomen and Pelvis Without Intravenous Contrast EXAM DATE/TIME: 10/26/2016 7:00 PM CLINICAL HISTORY: 36 years old, female; Pain; Abdominal pain; Flank; Other: Bilateral; Prior surgery; Surgery type: ; Additional info: B/l flank pain TECHNIQUE: Axial computed tomography images of the abdomen and pelvis without intravenous contrast. All CT scans at this facility use one or more dose reduction techniques, viz.: automated exposure control; ma/kV adjustment per patient size (including targeted exams where dose is matched to indication; i.e. head); or iterative reconstruction technique. Coronal and sagittal reformatted images were created and reviewed. COMPARISON: There are no prior studies for comparison. FINDINGS: Artifacts: Streak artifact degrades image quality. There is asymmetric patient positioning Lower thorax: Heart size is normal. There is trace pericardial fluid. There is minimal scarring at the lung bases. ABDOMEN: Liver: unremarkable Gallbladder and bile ducts: Gallbladder is partially distended. There is pericholecystic fluid/edema. Common duct is difficult to identify. Pancreas: Pancreas is atrophic. Spleen: unremarkable Adrenals: There is mild adrenal thickening bilaterally. Kidneys and ureters: Kidneys and ureters are unremarkable. Stomach and bowel: Stomach is incompletely distended which accentuates the gastric wall.Bowel rotation is normal. There is no small bowel obstruction. Distal small bowel is mildly distended with fluid.Appendix and terminal ileum are unremarkable.Colon is incompletely distended which limits evaluation. There is diverticulosis Appendix: See above. PELVIS: Bladder: Bladder is almost completely empty. A Townsend catheter coils in the bladder. Reproductive: Uterus and adnexal structures are unremarkable. ABDOMEN and PELVIS: Intraperitoneal space:There is no significant fluid in the pelvis.There is no free air. Bones/joints: There is a poorly defined sclerotic lesion at L1. There is L5 spondylolysis with minimal spondylolisthesis L5 on S1. There is posterior disc bulging L5-S1. Soft tissues: There is mild body wall edema. Vasculature: Vascular structures are unremarkable. Lymph nodes: There is Left inguinal adenopathy. There are prominent mesenteric nodes. There is para-aortic adenopathy. IMPRESSION: Limited evaluation of solid viscera and bowel due to lack of intravenous contrast; minimal pericholecystic fluid; no renal or ureteral stones or hydronephrosis; no CT findings of appendicitis or diverticulitis Additional findings as described above.
[2016-10-27 00:04] LABS: VENOUS BLOOD GAS BASE EXCESS -23.3 mmol/L (0.0-2.0); VENOUS BLOOD PH 7.07 (7.32-7.43)
[2016-10-27 00:14] LABS: MEAN CELL VOLUME 79.2 fl (80.0-105.0); MEAN CORPUSCULAR HEMOGLOBIN 26.9 pg (25.0-35.0); MEAN CORPUSCULAR HGB CONC 33.9 g/dl (31.0-37.0); MEAN PLATELET VOLUME 8.7 fl (7.0-11.0); WHITE BLOOD COUNT 23.7 10^3/ul (4.5-11.0)
[2016-10-27 00:15] LABS: ALB/GLOB RATIO 0.6 (1.1-1.8); BILIRUBIN,TOTAL 0.6 mg/dL (0.2-1.3); HEMATOCRIT 22.4 % (36.0-48.0); POTASSIUM 4.5 mmol/L (3.6-5.0); TOTAL PROTEIN 8.1 g/dL (5.8-8.3)
--- NOTE | 2016-10-27 00:16 | CP.PCM.CON ---
History of Present Illness - History of Present Illness History of Present Illness: General Surgery Consult Re: abdominal pain, possible HD cath placement HPI: 36Fpresenting to ER C/O abd pain x 3 days. Pain radiates to her back, rated 7-8/10, with associated nausea and NBNB emesis. + F/C, fatigue, and weakness so she decided to seek medical attention. + facial/sinus pressure x1 week. Sorenson placed with cloudy white urine. + urinary frequency and pressure. Denied dysuria, hematuria. Pt was hypotensive in the ED and subsequently received 2 L NS bolus and a 3rd L with a bicarb drip 150mEq, with vitals beginning to stablize. Denies sore throat, cough, shortness of breath, palpitations, vision changes or other associated symptoms. PMH: HTN, DM2, Anemia, R leg DVT, R diabetic foot ulcers x 3 PSH: SH: Denies tobacco/etoh/illicit drugs All: Vancomycin Meds: See MAR Review of Systems - Review of Systems All systems: reviewed and no additional remarkable complaints except (as per HPI ) Past Patient History - Infectious Disease Hx of Infectious Diseases: None - Tetanus Immunizations Tetanus Immunization: Unknown - Past Medical History & Family History Past Medical History?: Yes - Past Social History Smoking Status: Never Smoked - CARDIAC Hx Cardiac Disorders: No - PULMONARY Hx Respiratory Disorders: No - NEUROLOGICAL Other/Comment: NEUROPATHY - HEENT Hx HEENT Problems: No - RENAL Hx Chronic Kidney Disease: No - ENDOCRINE/METABOLIC Hx Diabetes Mellitus Type 2: Yes - HEMATOLOGICAL/ONCOLOGICAL Hx Blood Disorders: No Other/Comment: RIGHT LEG DVT - INTEGUMENTARY Hx Dermatological Problems: No - MUSCULOSKELETAL/RHEUMATOLOGICAL Hx Falls: No - GASTROINTESTINAL Hx Gastrointestinal Disorders: No - GENITOURINARY/GYNECOLOGICAL Hx Genitourinary Disorders: No - PSYCHIATRIC Hx Depression: No Hx Emotional Abuse: No Hx Physical Abuse: No Hx Substance Use: No - SURGICAL HISTORY Hx Section: Yes Meds Allergies/Adverse Reactions: Allergies Allergy/AdvReac Type Severity Reaction Status Date / Time vancomycin Allergy RASH Verified 10/26/16 18:55 - Medications Medications: Current Medications Heparin Sodium (Porcine) (Heparin) 5,000 units SC Q8 JERRICA PRN Reason: Protocol Sodium Bicarbonate 150 meq/ (Dextrose) 1,150 mls @ 150 mls/hr IV .Q7H40M STA Stop: 10/27/16 05:08 Last Admin: 10/26/16 21:40 Dose: 150 mls/hr Insulin Human Lispro (Humalog Med) 0 units SC ACHS JERRICA PRN Reason: Protocol Pantoprazole Sodium (Protonix Inj) 40 mg IVP Q12 JERRICA Physical Exam - Constitutional Appears: Cachectic, Other (shivering) - Head Exam Head Exam: ATRAUMATIC, NORMOCEPHALIC - Eye Exam Eye Exam: EOMI. absent: Scleral icterus - ENT Exam ENT Exam: Mucous Membranes Dry Additional comments: trachea midline - Respiratory Exam Respiratory Exam: NORMAL BREATHING PATTERN. absent: Accessory Muscle Use, Respiratory Distress - Cardiovascular Exam Cardiovascular Exam: RRR, +S1, +S2 - GI/Abdominal Exam GI & Abdominal Exam: Guarding, Soft, Tenderness (throughout abd). absent: Distended, Firm, Rigid - Rectal Exam Rectal Exam: Deferred - Exam Additional comments: sorenson in place, cloudy white urine in tube - Extremities Exam Extremities exam: Negative for: calf tenderness, pedal edema Additional comments: R foot with 1 heel ulcer and 2 on the sole of the foot. all with black eschars being treated effectively with santyl - Back Exam Back exam: CVA tenderness (L), CVA tenderness (R) - Neurological Exam Neurological exam: Alert, Oriented x3 - Skin Skin Exam: Dry, Warm Results - Vital Signs Recent Vital Signs: Last Vital Signs Temp 90.4 F L 10/26/16 21:55 Pulse 80 10/26/16 21:55 Resp 10 L 10/26/16 21:55 BP 117/59 L 10/26/16 21:55 Pulse Ox 100 10/26/16 21:55 - Labs Result Diagrams: 10/26/16 19:30 10/26/16 19:30 - Imaging and Cardiology CT scan - abdomen Status: Image reviewed by me, Report reviewed by me Assessment & Plan - Assessment and Plan (Free Text) Assessment: 36F with septic shock and acute on chronic kidney injury from UTI Plan: IVF resuscitation Nephro on board, will place HD cath if Nephro determines HD necessary. Abx Monitor sorenson output May need urology consult Monitor vitals Serial abd exams Analgesia PRN D/W Dr. Jose Manuel Mauricio PGY4
[2016-10-27] MEDS ORDERED: Sodium Chloride 0.9% 1,000 ML IV STA ×3 (01:14→11:14)
[2016-10-27] MEDS: Morphine 2 mg/ml ISec IVP PRN ×2 (05:29→17:33)
[2016-10-27 06:04] LABS: VENOUS BLOOD GAS BASE EXCESS -20.1 mmol/L (0.0-2.0); VENOUS BLOOD PH 7.17 (7.32-7.43)
[2016-10-27 06:23] LABS: ALB/GLOB RATIO 0.7 (1.1-1.8); ALKALINE PHOSPHATASE 95 U/L (38-126); ALT/SGPT 11 U/L (7-56); AST/SGOT 22 U/L (14-36); BILIRUBIN,TOTAL 0.5 mg/dL (0.2-1.3); CALCIUM 7.7 mg/dL (8.4-10.5); CARBON DIOXIDE 6 mmol/L (21-33); CHLORIDE 108 mmol/L (98-107); GFR AFRICAN-AMERICAN 6; GLUCOSE,RANDOM 275 mg/dL (70-110); MAGNESIUM 1.6 mg/dL (1.7-2.2); PHOSPHOROUS 8.3 mg/dL (2.5-4.5); POTASSIUM 3.9 mmol/L (3.6-5.0); SODIUM 133 mmol/L (132-148); TOTAL PROTEIN 7.3 g/dL (5.8-8.3)
[2016-10-27 06:29] LABS: IRON 117 ug/dL (45-180)
[2016-10-27 06:33] LABS: BASO # 0.01 K/mm3 (0.0-2.0); BASO % 0.1 % (0.0-3.0); EOS # 0.1 (0.0-0.7); EOS % 0.5 % (1.5-5.0); GRAN # 17.63 (1.4-6.5); LYMPH # 0.4 (1.2-3.4); LYMPH % 2.3 % (22.0-35.0); MEAN CELL VOLUME 77.7 fl (80.0-105.0); MEAN CORPUSCULAR HEMOGLOBIN 26.5 pg (25.0-35.0); MEAN CORPUSCULAR HGB CONC 34.2 g/dl (31.0-37.0); MEAN PLATELET VOLUME 8.9 fl (7.0-11.0); MONO # 0.6 (0.1-0.6); MONO % 3.1 % (1.0-6.0); PLATELET COUNT 336 10^3/uL (120.0-450.0); WHITE BLOOD COUNT 18.7 10^3/ul (4.5-11.0)
[2016-10-27 06:35] LABS: HEMATOCRIT 20.2 % (36.0-48.0)
[2016-10-27] MEDS: Insulin Lispro (humaLOG) MEDIUM Coverage SC SCH ×4 (07:30→21:40)
[2016-10-27 07:57] LABS: BAND 1 % (0-2); NEUTROPHIL 89 % (50.0-70.0)
[2016-10-27 07:58] LABS: ANISOCYTOSIS SLIGHT; HYPOCHROMIA SLIGHT; NUCLEATED RED BLOOD CELL 4 %; PLATELET ESTIMATE NORMAL (NORMAL)
--- NOTE | 2016-10-27 09:16 | RAD ---
HISTORY: hypothermia COMPARISON: Comparison chest 05/25/2013 FINDINGS: LUNGS: The the PLEURA: No significant pleural effusion identified, no pneumothorax apparent. CARDIOVASCULAR: Normal. OSSEOUS STRUCTURES: No significant abnormalities. VISUALIZED UPPER ABDOMEN: Normal. OTHER FINDINGS: None. IMPRESSION: CT Poor inspiration with low lung volumes, crowded bronchovascular markings and mild bibasilar atelectasis.
[2016-10-27 10:38] LABS: BLOOD UREA NITROGEN 143 mg/dL (7-21)
[2016-10-27] MEDS: Sodium Bicarbonate 8.4% 150 MEQ in Dextrose 5% In Water 1,000 ML IV SCH (10:44)
[2016-10-27] MEDS ORDERED: Magnesium Sulfate 2 GM in Sodium Chloride 0.9% 100 ML IVPB ONE (11:15)
--- NOTE | 2016-10-27 12:14 | CP.PCM.PN ---
<JOSE LUIS DONOVAN - Last Filed: 10/27/16 13:49> Subjective - Date & Time of Evaluation Date of Evaluation: 10/27/16 Time of Evaluation: 09:00 - Subjective Subjective: patient was seen and examined at bedside. states that she is in a lot of pain in her lower abdomen and in her flank pain R>L. pt states that when she came in september to the ED, they did not send her a script for antibiotics and so she has not taken any antibiotics since her UTI ED visit. Pt states that she has also been to [facility] a couple times for other complaints. Pt states that in the last 5 days, she has experienced severe pelvic pain, flank pain, fevers/chills, n/v, decreased urine output (she states it's because of her drinking less), feeing dry and decreased appetite. pt denies coughs, chest pain, sob, or weakness. pt also has LLE ulcer due to diabetes and 2 amputated toes on the L foot. Objective - Vital Signs/Intake and Output Vital Signs (last 24 hours): Temp Pulse Resp BP Pulse Ox 98 F 91 H 21 70/38 L 100 10/27/16 12:00 10/27/16 12:00 10/27/16 12:00 10/27/16 12:00 10/27/16 11:00 Intake and Output: 10/27/16 10/27/16 06:59 18:59 Intake Total 0 4500 Output Total 650 250 Balance -650 4250 - Medications Medications: Current Medications Acetaminophen (Tylenol 325mg Tab) 650 mg PO Q6H PRN PRN Reason: Pain, moderate (4-7) Heparin Sodium (Porcine) (Heparin) 5,000 units SC Q8 JERRICA PRN Reason: Protocol Last Admin: 10/27/16 06:40 Dose: 5,000 units Meropenem 250 mg/ Sodium (Chloride) 100 mls @ 100 mls/hr IVPB Q12H JERRICA PRN Reason: Protocol Stop: 11/10/16 08:31 Last Admin: 10/27/16 09:21 Dose: 100 mls/hr Sodium Bicarbonate 150 meq/ (Dextrose) 1,150 mls @ 200 mls/hr IV .Q5H45M [facility] Last Admin: 10/27/16 10:44 Dose: 200 mls/hr Sodium Chloride (Sodium Chloride 0.9%) 1,000 mls @ 999 mls/hr IV .Q1H1M STA Stop: 10/27/16 12:12 Last Admin: 10/27/16 11:10 Dose: 999 mls/hr Sodium Chloride (Sodium Chloride 0.9%) 1,000 mls @ 999 mls/hr IV .Q1H1M STA Stop: 10/27/16 12:14 Last Admin: 10/27/16 10:00 Dose: 999 mls/hr Magnesium Sulfate 2 gm/ Sodium (Chloride) 104 mls @ 102 mls/hr IVPB ONCE ONE Stop: 10/27/16 12:16 Last Admin: 10/27/16 11:30 Dose: 102 mls/hr Insulin Human Lispro (Humalog Med) 0 units SC ACHS JERRICA PRN Reason: Protocol Last Admin: 10/27/16 07:30 Dose: Not Given Morphine Sulfate (Morphine) 1 mg IVP Q6H PRN PRN Reason: Pain, severe (8-10) Last Admin: 10/27/16 05:29 Dose: 1 mg Pantoprazole Sodium (Protonix Inj) 40 mg IVP Q12 JERRICA Last Admin: 10/27/16 09:21 Dose: 40 mg - Labs Labs: 10/27/16 05:30 10/27/16 05:30 PT 13.3 Seconds (9.9-11.8) H 10/26/16 20:30 INR 1.23 (0.93-1.08) H 10/26/16 20:30 APTT 40.6 Seconds (23.7-30.8) H 10/26/16 20:30 - Constitutional Appears: In Acute Distress (pt uncomfortable and unable to find position of comfort), Unkempt, Older Than Stated Age - Head Exam Head Exam: ATRAUMATIC, NORMAL INSPECTION, NORMOCEPHALIC - Eye Exam Eye Exam: EOMI, Normal appearance, PERRL Pupil Exam: NORMAL ACCOMODATION - ENT Exam ENT Exam: Mucous Membranes Dry Additional comments: missing teeth poor dentition - Neck Exam Neck Exam: Normal Inspection - Respiratory Exam Respiratory Exam: Clear to Ausculation Bilateral, NORMAL BREATHING PATTERN. absent: Wheezes, Respiratory Distress - Cardiovascular Exam Cardiovascular Exam: RRR, +S1, +S2. absent: Murmur - GI/Abdominal Exam GI & Abdominal Exam: Guarding, Soft, Tenderness (moderate pelvic pain, no bladder distention appreciated), Normal Bowel Sounds. absent: Organomegaly - Back Exam Back Exam: CVA tenderness (L) (moderate), CVA tenderness (R) (severe ) - Neurological Exam Neurological Exam: Alert, Awake, Oriented x3 - Psychiatric Exam Psychiatric exam: Normal Mood - Skin Additional comments: L ankle wrapped in clean dressing L foot w/ 2 toe amputations - Additional Findings Additional findings: sorenson in place: output 20cc cloudy urine, no clots or sediments noted Assessment and Plan - Assessment and Plan (Free Text) Assessment: 36yo F PMH DM, HTN, HLD, RLE dvt and LLE ulcer who presents w/ Septic shock 2/2 pyelonephritis 2/2 untreated UTI. EMMETT present, likely needing dialysis. Metabolic acidosis w/ high AG also present, but improving, requiring dialysis. Also found to be anemic, likely due to chronic disease vs hemorrhage vs iron deficiency. Plan: 1. Septic Shock likely 2/2 pyelo vs untreated UTI - pt received 2L NS in ED, w/o much improvement in BP - 7 L in total IVF given so far (between NS and bicarb drips) - pt received clindamycin in ED - currently on Merrem - ID consulted, recs appreciated - Bicarb drip 200mls/hr - CT abd was limited due to lack of IV contrast but noted no hydronephrosis - CXR showed poor inspiration w/ low lung volumes, crowded bronchovascular markings - blood, urine, wound cultures wee sent - f/u MRSA screen - procal ordered - afebrile, and leukocytosis improving (bands 1%) - continue to monitor - pain mgmt: morphine 1q6 PRN 2. EMMETT on CKD vs worsening CKD - Cr from 09/25/16: 3.3 - Cr currently 9.1, improved slightly w/ hydration - Nephrology consulted regarding need for dialysis considering level of acidosis likely 2/2 uremia - Surgery consulted for possible HD cath placement 3. Metabolic acidosis w/ high AG likely 2/2 uremia - bicarb drip 200mls/hr (225meq given so far) - 50meq syringe also given - lactate level 0.5 so unlikely the cause - continue to monitor for resp distress or worsening renal fxn - considering dialysis w/ nephro 4. Anemia likely 2/2 chronic dz - microcytic anemia - TIBC low, Fe normal - peripheral smear observed, showing microcytic hypochromic anemia w/ no schistocytes - likely due to chronic kidney dz - retic count ordered 5. LLE ulcer - podiatry consulted, recs appreciated - wound care 6. Hx DM - NPO diet - ISS low 7. Hx HTN - currently hypotensive - bp meds held 8. Hx HLD - lipid panel ordered NPO Bicarb Drip 200cc/hr Heparin/PTX Patient was seen, evaluated and discussed with attending, Dr. Keith Donovan PGY1 <Agustin Parker - Last Filed: 10/27/16 18:51> Objective - Vital Signs/Intake and Output Vital Signs (last 24 hours): Temp Pulse Resp BP Pulse Ox 98.1 F 105 H 25 H 156/93 H 90 L 10/27/16 15:54 10/27/16 15:45 10/27/16 15:45 10/27/16 15:45 10/27/16 15:45 Intake and Output: 10/27/16 10/27/16 06:59 18:59 Intake Total 0 4825 Output Total 650 250 Balance -650 4575 - Medications Medications: Current Medications Acetaminophen (Tylenol 325mg Tab) 650 mg PO Q6H PRN PRN Reason: Pain, moderate (4-7) Heparin Sodium (Porcine) (Heparin) 5,000 units SC Q8 JERRICA PRN Reason: Protocol Last Admin: 10/27/16 13:04 Dose: 5,000 units Meropenem 250 mg/ Sodium (Chloride) 100 mls @ 100 mls/hr IVPB Q12H JERRICA PRN Reason: Protocol Stop: 11/10/16 08:31 Last Admin: 10/27/16 09:21 Dose: 100 mls/hr Sodium Bicarbonate 150 meq/ (Dextrose) 1,150 mls @ 200 mls/hr IV .Q5H45M JERRICA Last Admin: 10/27/16 10:44 Dose: 200 mls/hr Insulin Human Lispro (Humalog Med) 0 units SC ACHS JERRICA PRN Reason: Protocol Last Admin: 10/27/16 17:29 Dose: 5 units Morphine Sulfate (Morphine) 1 mg IVP Q6H PRN PRN Reason: Pain, severe (8-10) Last Admin: 10/27/16 17:33 Dose: 1 mg Pantoprazole Sodium (Protonix Inj) 40 mg IVP Q12 JERRICA Last Admin: 10/27/16 09:21 Dose: 40 mg - Labs Labs: 10/27/16 15:10 10/27/16 05:30 PT 13.3 Seconds (9.9-11.8) H 10/26/16 20:30 INR 1.23 (0.93-1.08) H 10/26/16 20:30 APTT 40.6 Seconds (23.7-30.8) H 10/26/16 20:30 Attending/Attestation - Attestation I have personally seen and examined this patient.: Yes I have fully participated in the care of the patient.: Yes I have reviewed all pertinent clinical information, including history, physical exam and plan: Yes Notes (Text): I have seen and examined the patient at bedside. Agree with the above note with the following additions/ exceptions: Briefly this is 36 year old female with history of IDDM, HTN, dyslipidemia, RLE DVT, wheel chair bound, 2 amputated toes of left leg and chronic LE ulcer who presented with severe sepsis secondary to acute pyelonephritis, Acute on chronic kidney disease, AGMA, electrolyte abnormalities, anemia and hypotension. BP is still on the lower side. She is anuric despite aggressive IV fluids administration. Patient is getting 1 unit of prbc. She is on meropenem. She is on bicarb drip. Procal and Cultures are pending. Discussed with call center assistant. Surgery team will place HD catheter and will get HD today. Will consult podiatry. Upon discharge patient will follow up with Dr Bunch. Dr Agustin Parker
[2016-10-27] MEDS ORDERED: Mannitol 12.5 gm/50 ml Inj IV ONE (13:19)
--- NOTE | 2016-10-27 13:26 | RAD ---
HISTORY: TLC placement COMPARISON: Comparison made with prior study 10/26/2016 FINDINGS: Interval placement right IJ triple-lumen catheter with tip in the SVC. LUNGS: Poor inspiration with low lung volumes, crowded bronchovascular markings and mild bibasilar atelectasis. PLEURA: No significant pleural effusion identified, no pneumothorax apparent. CARDIOVASCULAR: Heart size is upper limits of normal likely due to poor inspiration and AP patient position. . OSSEOUS STRUCTURES: No significant abnormalities. VISUALIZED UPPER ABDOMEN: Normal. OTHER FINDINGS: None. IMPRESSION: Interval placement right IJ triple-lumen catheter with tip in the SVC. No evidence of pneumothorax. Poor inspiration with low lung volumes, crowded bronchovascular markings and mild bibasilar atelectasis.
--- NOTE | 2016-10-27 13:33 | CP.CCUPN ---
<JUNE ROCHA - Last Filed: 10/27/16 15:11> CCU Subjective - Physician Review Subjective (Free Text): 10/27/16 15:12 Patient seen and assessed at bedside. Patient complains of persistent abdominal and flank pain more so on the right than the left. She states that laying on her side somewhat helps with this. She denies fever, headache, changes in her vision, dysphagia, chest pain, palpitations, SOB, cough, diarrhea, constipation or any burning with urination. CCU Objective - Vital Signs / Intake & Output Vital Signs (Last 4 hours): Vital Signs Temp Pulse Resp BP Pulse Ox 10/27/16 13:00 97.9 F 103 H 24 128/80 10/27/16 12:00 98 F 91 H 21 70/38 L 10/27/16 11:15 97.9 F 96 H 20 72/48 L 10/27/16 11:00 97.6 F 97 H 19 75/53 L 100 10/27/16 10:56 97.8 F 99 H 19 100/65 10/27/16 10:50 101 H 18 100 10/27/16 10:40 103 H 39 H 100 10/27/16 10:39 102 H 8 L 100/65 100 10/27/16 10:31 101 H 55 H 78/40 L 100 10/27/16 10:30 102 H 19 100 10/27/16 10:20 102 H 23 100 10/27/16 10:11 102 H 20 93/39 L 100 10/27/16 10:10 103 H 22 100 10/27/16 10:00 103 H 25 H 77/40 L 100 10/27/16 09:50 105 H 31 H 100 10/27/16 09:40 103 H 20 100 Intake and Output (Last 8hrs): Intake & Output 10/26/16 10/27/16 10/27/16 22:59 06:59 14:59 Intake Total 0 4500 Output Total 650 250 Balance -650 4250 Weight 106 lb 116 lb Intake: IV 0 4500 Dobutamine 0 Dopamine 0 Left Forearm 4500 Oral 0 0 Blood Product 0 Red Blood Cells Cpd As1 0 Lr Unit [id number] Output: Urine 650 250 Urine, Voided 650 250 Other: Voiding Method Indwelling Catheter # Bowel Movements 0 - Physical Exam Head: Positive for: Atraumatic, Normocephalic Pupils: Positive for: PERRL Extroacular Muscles: Positive for: EOMI Conjunctiva: Positive for: Normal Mouth: Positive for: Moist Mucous Membranes Pharnyx: Positive for: Normal. Negative for: ERYTHEMA, EXUDATE Neck: Positive for: Normal Range of Motion Respiratory/Chest: Positive for: Clear to Auscultation, Good Air Exchange. Negative for: Respiratory Distress, Accessory Muscle Use Cardiovascular: Positive for: Regular Rate and Rhythm, Normal S1, S2, Tachycardic. Negative for: Murmurs Abdomen: Positive for: Normal Bowel Sounds. Negative for: Tenderness, Distention, Peritoneal Signs Back: Positive for: CVA Tenderness (Bilateral CVA Tenderness ) Upper Extremity: Positive for: Normal Inspection. 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 Negative for: Edema Neurological: Positive for: GCS=15, CN II-XII Intact, Speech Normal Skin: Positive for: Warm, Dry, Normal Color. Negative for: Rashes Psychiatric: Positive for: Oriented x 3, Lethargic - Medications Active Medications: Active Medications Generic Name Dose Route Start Last Admin Trade Name Freq PRN Reason Stop Dose Admin Acetaminophen 650 mg 10/27/16 04:59 Tylenol 325mg Tab PO Q6H PRN Pain, moderate (4-7) Heparin Sodium (Porcine) 5,000 units 10/26/16 22:15 10/27/16 13:04 Heparin SC 5,000 units Q8 JERRICA Administration Protocol Meropenem 250 mg/ Sodium 100 mls @ 100 mls/hr 10/27/16 08:30 10/27/16 09:21 Chloride IVPB 11/10/16 08:31 100 mls/hr Q12H JERRICA Administration Protocol Sodium Bicarbonate 150 meq/ 1,150 mls @ 200 mls/hr 10/27/16 09:30 10/27/16 10 :44 Dextrose IV 200 mls/hr .[id number] JERRICA Administration Insulin Human Lispro 0 units 10/26/16 22:00 10/27/16 12:00 Humalog Med SC Not Given ACHS JERRICA Protocol Morphine Sulfate 1 mg 10/27/16 05:00 10/27/16 05:29 Morphine IVP 1 mg Q6H PRN Administration Pain, severe (8-10) Pantoprazole Sodium 40 mg 10/26/16 22:15 10/27/16 09:21 Protonix Inj IVP 40 mg Q12 JERRICA Administration - Patient Studies Lab Studies: Lab Studies 10/27/16 10/27/16 10/27/16 Range/Units 11:43 10:00 09:45 WBC (4.5-11.0) 10^3/ul RBC (3.5-6.1) 10^6/uL Hgb (12.0-16.0) g/dL Hct (36.0-48.0) % MCV (80.0-105.0) fl MCH (25.0-35.0) pg MCHC (31.0-37.0) g/dl RDW (11.5-14.5) % Plt Count (120.0-450.0) 10^3/uL MPV (7.0-11.0) fl Gran % (50.0-68.0) % Lymph % (Auto) (22.0-35.0) % [place] % (Auto) (1.0-6.0) % Eos % (Auto) (1.5-5.0) % Baso % (Auto) (0.0-3.0) % Gran # (1.4-6.5) Lymph # (1.2-3.4) [place] # (0.1-0.6) Eos # (0.0-0.7) Baso # (0.0-2.0) K/mm3 Neutrophils % (Manual) (50.0-70.0) % Band Neutrophils % (0-2) % Lymphocytes % (Manual) (22.0-35.0) % Monocytes % (Manual) (1.0-6.0) % Nucleated RBC % % Platelet Evaluation (NORMAL) Hypochromasia Anisocytosis (manual) pO2 (30-55) mm/Hg VBG pH (7.32-7.43) VBG pCO2 (40-60) VBG HCO3 (21-28) mmol/l VBG Total CO2 (22-28) mmol.L VBG O2 Sat (Calc) (40-65) % VBG Base Excess (0.0-2.0) mmol/L VBG Potassium (3.6-5.2) mmol/L Sodium (132-148) mmol/L Chloride (98-107) mmol/L Glucose (65-105) mg/dl Lactate (0.7-2.1) mmol/L FiO2 % Potassium (3.6-5.0) mmol/L Carbon Dioxide (21-33) mmol/L Anion Gap (10-20) BUN (7-21) mg/dL Creatinine (0.5-1.4) mg/dL Est GFR ( Amer) Est GFR (Non-Af Amer) POC Glucose (mg/dL) 192 H (65-110) mg/dL Random Glucose (70-110) mg/dL Lactic Acid (0.7-2.1) mmol/L Calcium (8.4-10.5) mg/dL Phosphorus (2.5-4.5) mg/dL Magnesium (1.7-2.2) mg/dL Iron (45-180) ug/dL TIBC (265-497) ug/dL % Saturation (20-55) % Total Bilirubin (0.2-1.3) mg/dL AST (14-36) U/L ALT (7-56) U/L Alkaline Phosphatase (38-126) U/L Total Protein (5.8-8.3) g/dL Albumin (3.0-4.8) g/dL Globulin gm/dL Albumin/Globulin Ratio (1.1-1.8) Lipase (23-300) U/L Venous Blood Potassium (3.6-5.2) mmol/L Ur Random Creatinine mg/dL Ur Random Sodium meq/L Complement C3 (88.0-165.0) mg/dL Complement C4 (14.0-44.0) mg/dL Blood Type B POSITIVE Blood Type Confirm B POSITIVE Antibody Screen Negative Crossmatch See Detail BBK History Checked No verified bt 10/27/16 10/27/16 10/27/16 Range/Units 09:00 07:51 05:50 WBC (4.5-11.0) 10^3/ul RBC (3.5-6.1) 10^6/uL Hgb (12.0-16.0) g/dL Hct (36.0-48.0) % MCV (80.0-105.0) fl MCH (25.0-35.0) pg MCHC (31.0-37.0) g/dl RDW (11.5-14.5) % Plt Count (120.0-450.0) 10^3/uL MPV (7.0-11.0) fl Gran % (50.0-68.0) % Lymph % (Auto) (22.0-35.0) % [place] % (Auto) (1.0-6.0) % Eos % (Auto) (1.5-5.0) % Baso % (Auto) (0.0-3.0) % Gran # (1.4-6.5) Lymph # (1.2-3.4) [place] # (0.1-0.6) Eos # (0.0-0.7) Baso # (0.0-2.0) K/mm3 Neutrophils % (Manual) (50.0-70.0) % Band Neutrophils % (0-2) % Lymphocytes % (Manual) (22.0-35.0) % Monocytes % (Manual) (1.0-6.0) % Nucleated RBC % % Platelet Evaluation (NORMAL) Hypochromasia Anisocytosis (manual) pO2 90 H (30-55) mm/Hg VBG pH 7.17 L* (7.32-7.43) VBG pCO2 18.0 L* (40-60) VBG HCO3 6.6 L (21-28) mmol/l VBG Total CO2 (22-28) mmol.L VBG O2 Sat (Calc) 99.3 H (40-65) % VBG Base Excess -20.1 L (0.0-2.0) mmol/L VBG Potassium (3.6-5.2) mmol/L Sodium (132-148) mmol/L Chloride (98-107) mmol/L Glucose (65-105) mg/dl Lactate (0.7-2.1) mmol/L FiO2 % Potassium (3.6-5.0) mmol/L Carbon Dioxide (21-33) mmol/L Anion Gap (10-20) BUN (7-21) mg/dL Creatinine (0.5-1.4) mg/dL Est GFR ( Amer) Est GFR (Non-Af Amer) POC Glucose (mg/dL) 238 H (65-110) mg/dL Random Glucose (70-110) mg/dL Lactic Acid (0.7-2.1) mmol/L Calcium (8.4-10.5) mg/dL Phosphorus (2.5-4.5) mg/dL Magnesium (1.7-2.2) mg/dL Iron (45-180) ug/dL TIBC (265-497) ug/dL % Saturation (20-55) % Total Bilirubin (0.2-1.3) mg/dL AST (14-36) U/L ALT (7-56) U/L Alkaline Phosphatase (38-126) U/L Total Protein (5.8-8.3) g/dL Albumin (3.0-4.8) g/dL Globulin gm/dL Albumin/Globulin Ratio (1.1-1.8) Lipase (23-300) U/L Venous Blood Potassium (3.6-5.2) mmol/L Ur Random Creatinine 16 mg/dL Ur Random Sodium 130 meq/L Complement C3 (88.0-165.0) mg/dL Complement C4 (14.0-44.0) mg/dL Blood Type Blood Type Confirm Antibody Screen Crossmatch BBK History Checked 10/27/16 10/27/16 10/27/16 Range/Units 05:30 05:30 05:30 WBC (4.5-11.0) 10^3/ul RBC (3.5-6.1) 10^6/uL Hgb (12.0-16.0) g/dL Hct (36.0-48.0) % MCV (80.0-105.0) fl MCH (25.0-35.0) pg MCHC (31.0-37.0) g/dl RDW (11.5-14.5) % Plt Count (120.0-450.0) 10^3/uL MPV (7.0-11.0) fl Gran % (50.0-68.0) % Lymph % (Auto) (22.0-35.0) % [place] % (Auto) (1.0-6.0) % Eos % (Auto) (1.5-5.0) % Baso % (Auto) (0.0-3.0) % Gran # (1.4-6.5) Lymph # (1.2-3.4) [place] # (0.1-0.6) Eos # (0.0-0.7) Baso # (0.0-2.0) K/mm3 Neutrophils % (Manual) (50.0-70.0) % Band Neutrophils % (0-2) % Lymphocytes % (Manual) (22.0-35.0) % Monocytes % (Manual) (1.0-6.0) % Nucleated RBC % % Platelet Evaluation (NORMAL) Hypochromasia Anisocytosis (manual) pO2 (30-55) mm/Hg VBG pH (7.32-7.43) VBG pCO2 (40-60) VBG HCO3 (21-28) mmol/l VBG Total CO2 (22-28) mmol.L VBG O2 Sat (Calc) (40-65) % VBG Base Excess (0.0-2.0) mmol/L VBG Potassium (3.6-5.2) mmol/L Sodium 133 (132-148) mmol/L Chloride 108 H (98-107) mmol/L Glucose (65-105) mg/dl Lactate (0.7-2.1) mmol/L FiO2 % Potassium 3.9 (3.6-5.0) mmol/L Carbon Dioxide 6 L D (21-33) mmol/L Anion Gap 23 H (10-20) BUN 143 H* (7-21) mg/dL Creatinine 9.1 H* (0.5-1.4) mg/dL Est GFR ( Amer) 6 Est GFR (Non-Af Amer) 5 POC Glucose (mg/dL) (65-110) mg/dL Random Glucose 275 H (70-110) mg/dL Lactic Acid (0.7-2.1) mmol/L Calcium 7.7 L (8.4-10.5) mg/dL Phosphorus 8.3 H (2.5-4.5) mg/dL Magnesium 1.6 L (1.7-2.2) mg/dL Iron 117 (45-180) ug/dL TIBC 131 L (265-497) ug/dL % Saturation 90 H (20-55) % Total Bilirubin 0.5 (0.2-1.3) mg/dL AST 22 (14-36) U/L ALT 11 (7-56) U/L Alkaline Phosphatase 95 (38-126) U/L Total Protein 7.3 (5.8-8.3) g/dL Albumin 2.9 L (3.0-4.8) g/dL Globulin 4.4 gm/dL Albumin/Globulin Ratio 0.7 L (1.1-1.8) Lipase (23-300) U/L Venous Blood Potassium (3.6-5.2) mmol/L Ur Random Creatinine mg/dL Ur Random Sodium meq/L Complement C3 96.0 (88.0-165.0) mg/dL Complement C4 24.2 (14.0-44.0) mg/dL Blood Type Blood Type Confirm Antibody Screen Crossmatch BBK History Checked 10/27/16 10/27/16 10/27/16 Range/Units 05:30 05:21 02:55 WBC 18.7 H D (4.5-11.0) 10^3/ul RBC 2.60 L (3.5-6.1) 10^6/uL Hgb 6.9 L* (12.0-16.0) g/dL Hct 20.2 L* (36.0-48.0) % MCV 77.7 L (80.0-105.0) fl MCH 26.5 (25.0-35.0) pg MCHC 34.2 (31.0-37.0) g/dl RDW 16.0 H (11.5-14.5) % Plt Count 336 (120.0-450.0) 10^3/uL MPV 8.9 (7.0-11.0) fl Gran % 94.0 H (50.0-68.0) % Lymph % (Auto) 2.3 L (22.0-35.0) % [place] % (Auto) 3.1 (1.0-6.0) % Eos % (Auto) 0.5 L (1.5-5.0) % Baso % (Auto) 0.1 (0.0-3.0) % Gran # 17.63 H (1.4-6.5) Lymph # 0.4 L (1.2-3.4) Meeker # 0.6 (0.1-0.6) Eos # 0.1 (0.0-0.7) Baso # 0.01 (0.0-2.0) K/mm3 Neutrophils % (Manual) 89 H (50.0-70.0) % Band Neutrophils % 1 (0-2) % Lymphocytes % (Manual) 5 L (22.0-35.0) % Monocytes % (Manual) 5 (1.0-6.0) % Nucleated RBC % 4 % Platelet Evaluation Normal (NORMAL) Hypochromasia Slight Anisocytosis (manual) Slight pO2 (30-55) mm/Hg VBG pH (7.32-7.43) VBG pCO2 (40-60) VBG HCO3 (21-28) mmol/l VBG Total CO2 (22-28) mmol.L VBG O2 Sat (Calc) (40-65) % VBG Base Excess (0.0-2.0) mmol/L VBG Potassium (3.6-5.2) mmol/L Sodium (132-148) mmol/L Chloride (98-107) mmol/L Glucose (65-105) mg/dl Lactate (0.7-2.1) mmol/L FiO2 % Potassium (3.6-5.0) mmol/L Carbon Dioxide (21-33) mmol/L Anion Gap (10-20) BUN (7-21) mg/dL Creatinine (0.5-1.4) mg/dL Est GFR ( Amer) Est GFR (Non-Af Amer) POC Glucose (mg/dL) 287 H 301 H (65-110) mg/dL Random Glucose (70-110) mg/dL Lactic Acid (0.7-2.1) mmol/L Calcium (8.4-10.5) mg/dL Phosphorus (2.5-4.5) mg/dL Magnesium (1.7-2.2) mg/dL Iron (45-180) ug/dL TIBC (265-497) ug/dL % Saturation (20-55) % Total Bilirubin (0.2-1.3) mg/dL AST (14-36) U/L ALT (7-56) U/L Alkaline Phosphatase (38-126) U/L Total Protein (5.8-8.3) g/dL Albumin (3.0-4.8) g/dL Globulin gm/dL Albumin/Globulin Ratio (1.1-1.8) Lipase (23-300) U/L Venous Blood Potassium (3.6-5.2) mmol/L Ur Random Creatinine mg/dL Ur Random Sodium meq/L Complement C3 (88.0-165.0) mg/dL Complement C4 (14.0-44.0) mg/dL Blood Type Blood Type Confirm Antibody Screen Crossmatch BBK History Checked 10/27/16 10/26/16 10/26/16 Range/Units 01:05 23:45 23:45 WBC (4.5-11.0) 10^3/ul RBC (3.5-6.1) 10^6/uL Hgb (12.0-16.0) g/dL Hct (36.0-48.0) % MCV (80.0-105.0) fl MCH (25.0-35.0) pg MCHC (31.0-37.0) g/dl RDW (11.5-14.5) % Plt Count (120.0-450.0) 10^3/uL MPV (7.0-11.0) fl Gran % (50.0-68.0) % Lymph % (Auto) (22.0-35.0) % [place] % (Auto) (1.0-6.0) % Eos % (Auto) (1.5-5.0) % Baso % (Auto) (0.0-3.0) % Gran # (1.4-6.5) Lymph # (1.2-3.4) [place] # (0.1-0.6) Eos # (0.0-0.7) Baso # (0.0-2.0) K/mm3 Neutrophils % (Manual) (50.0-70.0) % Band Neutrophils % (0-2) % Lymphocytes % (Manual) (22.0-35.0) % Monocytes % (Manual) (1.0-6.0) % Nucleated RBC % % Platelet Evaluation (NORMAL) Hypochromasia Anisocytosis (manual) pO2 78 H (30-55) mm/Hg VBG pH 7.07 L* (7.32-7.43) VBG pCO2 17.0 L* (40-60) VBG HCO3 4.9 L (21-28) mmol/l VBG Total CO2 5.4 L (22-28) mmol.L VBG O2 Sat (Calc) 98.3 H (40-65) % VBG Base Excess -23.3 L (0.0-2.0) mmol/L VBG Potassium 4.6 (3.6-5.2) mmol/L Sodium 130.0 L (132-148) mmol/L Chloride 107.0 (98-107) mmol/L Glucose 249 H (65-105) mg/dl Lactate 0.5 L (0.7-2.1) mmol/L FiO2 21.0 % Potassium (3.6-5.0) mmol/L Carbon Dioxide (21-33) mmol/L Anion Gap (10-20) BUN (7-21) mg/dL Creatinine (0.5-1.4) mg/dL Est GFR ( Amer) Est GFR (Non-Af Amer) POC Glucose (mg/dL) 264 H (65-110) mg/dL Random Glucose (70-110) mg/dL Lactic Acid 0.6 L (0.7-2.1) mmol/L Calcium (8.4-10.5) mg/dL Phosphorus (2.5-4.5) mg/dL Magnesium (1.7-2.2) mg/dL Iron (45-180) ug/dL TIBC (265-497) ug/dL % Saturation (20-55) % Total Bilirubin (0.2-1.3) mg/dL AST (14-36) U/L ALT (7-56) U/L Alkaline Phosphatase (38-126) U/L Total Protein (5.8-8.3) g/dL Albumin (3.0-4.8) g/dL Globulin gm/dL Albumin/Globulin Ratio (1.1-1.8) Lipase (23-300) U/L Venous Blood Potassium 4.6 (3.6-5.2) mmol/L Ur Random Creatinine mg/dL Ur Random Sodium meq/L Complement C3 (88.0-165.0) mg/dL Complement C4 (14.0-44.0) mg/dL Blood Type Blood Type Confirm Antibody Screen Crossmatch BBK History Checked 10/26/16 10/26/16 Range/Units 23:45 23:45 WBC 23.7 H (4.5-11.0) 10^3/ul RBC 2.83 L (3.5-6.1) 10^6/uL Hgb 7.6 L (12.0-16.0) g/dL Hct 22.4 L (36.0-48.0) % MCV 79.2 L (80.0-105.0) fl MCH 26.9 (25.0-35.0) pg MCHC 33.9 (31.0-37.0) g/dl RDW 16.0 H (11.5-14.5) % Plt Count 364 (120.0-450.0) 10^3/uL MPV 8.7 (7.0-11.0) fl Gran % (50.0-68.0) % Lymph % (Auto) (22.0-35.0) % [place] % (Auto) (1.0-6.0) % Eos % (Auto) (1.5-5.0) % Baso % (Auto) (0.0-3.0) % Gran # (1.4-6.5) Lymph # (1.2-3.4) [place] # (0.1-0.6) Eos # (0.0-0.7) Baso # (0.0-2.0) K/mm3 Neutrophils % (Manual) (50.0-70.0) % Band Neutrophils % (0-2) % Lymphocytes % (Manual) (22.0-35.0) % Monocytes % (Manual) (1.0-6.0) % Nucleated RBC % % Platelet Evaluation (NORMAL) Hypochromasia Anisocytosis (manual) pO2 (30-55) mm/Hg VBG pH (7.32-7.43) VBG pCO2 (40-60) VBG HCO3 (21-28) mmol/l VBG Total CO2 (22-28) mmol.L VBG O2 Sat (Calc) (40-65) % VBG Base Excess (0.0-2.0) mmol/L VBG Potassium (3.6-5.2) mmol/L Sodium 133 (132-148) mmol/L Chloride 107 (98-107) mmol/L Glucose (65-105) mg/dl Lactate (0.7-2.1) mmol/L FiO2 % Potassium 4.5 (3.6-5.0) mmol/L Carbon Dioxide 5 L D (21-33) mmol/L Anion Gap 26 H (10-20) BUN 144 H* (7-21) mg/dL Creatinine 10.0 H* (0.5-1.4) mg/dL Est GFR ( Amer) 5 Est GFR (Non-Af Amer) 4 POC Glucose (mg/dL) (65-110) mg/dL Random Glucose 235 H (70-110) mg/dL Lactic Acid (0.7-2.1) mmol/L Calcium 8.0 L (8.4-10.5) mg/dL Phosphorus (2.5-4.5) mg/dL Magnesium (1.7-2.2) mg/dL Iron (45-180) ug/dL TIBC (265-497) ug/dL % Saturation (20-55) % Total Bilirubin 0.6 (0.2-1.3) mg/dL AST 12 L (14-36) U/L ALT 9 (7-56) U/L Alkaline Phosphatase 108 (38-126) U/L Total Protein 8.1 (5.8-8.3) g/dL Albumin 3.0 (3.0-4.8) g/dL Globulin 5.1 gm/dL Albumin/Globulin Ratio 0.6 L (1.1-1.8) Lipase 78 (23-300) U/L Venous Blood Potassium (3.6-5.2) mmol/L Ur Random Creatinine mg/dL Ur Random Sodium meq/L Complement C3 (88.0-165.0) mg/dL Complement C4 (14.0-44.0) mg/dL Blood Type Blood Type Confirm Antibody Screen Crossmatch BBK History Checked Laboratory Results - last 24 hr 10/26/16 10/26/16 10/26/16 23:45 23:45 23:45 WBC 23.7 H RBC 2.83 L Hgb 7.6 L Hct 22.4 L MCV 79.2 L MCH 26.9 MCHC 33.9 RDW 16.0 H Plt Count 364 MPV 8.7 Gran % Lymph % (Auto) [place] % (Auto) Eos % (Auto) Baso % (Auto) Gran # Lymph # [place] # Eos # Baso # Neutrophils % (Manual) Band Neutrophils % Lymphocytes % (Manual) Monocytes % (Manual) Nucleated RBC % Platelet Evaluation Hypochromasia Anisocytosis (manual) pO2 78 H VBG pH 7.07 L* VBG pCO2 17.0 L* VBG HCO3 4.9 L VBG Total CO2 5.4 L VBG O2 Sat (Calc) 98.3 H VBG Base Excess -23.3 L VBG Potassium 4.6 Sodium 133 130.0 L Chloride 107 107.0 Glucose 249 H Lactate 0.5 L FiO2 21.0 Potassium 4.5 Carbon Dioxide 5 L D Anion Gap 26 H BUN 144 H* Creatinine 10.0 H* Est GFR ( Amer) 5 Est GFR (Non-Af Amer) 4 POC Glucose (mg/dL) Random Glucose 235 H Lactic Acid Calcium 8.0 L Phosphorus Magnesium Iron TIBC % Saturation Total Bilirubin 0.6 AST 12 L ALT 9 Alkaline Phosphatase 108 Total Protein 8.1 Albumin 3.0 Globulin 5.1 Albumin/Globulin Ratio 0.6 L Lipase 78 Venous Blood Potassium 4.6 Ur Random Creatinine Ur Random Sodium Complement C3 Complement C4 Blood Type Blood Type Confirm Antibody Screen Crossmatch BBK History Checked 10/26/16 10/27/16 10/27/16 23:45 01:05 02:55 WBC RBC Hgb Hct MCV MCH MCHC RDW Plt Count MPV Gran % Lymph % (Auto) [place] % (Auto) Eos % (Auto) Baso % (Auto) Gran # Lymph # [place] # Eos # Baso # Neutrophils % (Manual) Band Neutrophils % Lymphocytes % (Manual) Monocytes % (Manual) Nucleated RBC % Platelet Evaluation Hypochromasia Anisocytosis (manual) pO2 VBG pH VBG pCO2 VBG HCO3 VBG Total CO2 VBG O2 Sat (Calc) VBG Base Excess VBG Potassium Sodium Chloride Glucose Lactate FiO2 Potassium Carbon Dioxide Anion Gap BUN Creatinine Est GFR ( Amer) Est GFR (Non-Af Amer) POC Glucose (mg/dL) 264 H 301 H Random Glucose Lactic Acid 0.6 L Calcium Phosphorus Magnesium Iron TIBC % Saturation Total Bilirubin AST ALT Alkaline Phosphatase Total Protein Albumin Globulin Albumin/Globulin Ratio Lipase Venous Blood Potassium Ur Random Creatinine Ur Random Sodium Complement C3 Complement C4 Blood Type Blood Type Confirm Antibody Screen Crossmatch BBK History Checked 10/27/16 10/27/16 10/27/16 05:21 05:30 05:30 WBC 18.7 H D RBC 2.60 L Hgb 6.9 L* Hct 20.2 L* MCV 77.7 L MCH 26.5 MCHC 34.2 RDW 16.0 H Plt Count 336 MPV 8.9 Gran % 94.0 H Lymph % (Auto) 2.3 L [place] % (Auto) 3.1 Eos % (Auto) 0.5 L Baso % (Auto) 0.1 Gran # 17.63 H Lymph # 0.4 L [place] # 0.6 Eos # 0.1 Baso # 0.01 Neutrophils % (Manual) 89 H Band Neutrophils % 1 Lymphocytes % (Manual) 5 L Monocytes % (Manual) 5 Nucleated RBC % 4 Platelet Evaluation Normal Hypochromasia Slight Anisocytosis (manual) Slight pO2 VBG pH VBG pCO2 VBG HCO3 VBG Total CO2 VBG O2 Sat (Calc) VBG Base Excess VBG Potassium Sodium 133 Chloride 108 H Glucose Lactate FiO2 Potassium 3.9 Carbon Dioxide 6 L D Anion Gap 23 H BUN 143 H* Creatinine 9.1 H* Est GFR ( Amer) 6 Est GFR (Non-Af Amer) 5 POC Glucose (mg/dL) 287 H Random Glucose 275 H Lactic Acid Calcium 7.7 L Phosphorus 8.3 H Magnesium 1.6 L Iron TIBC % Saturation Total Bilirubin 0.5 AST 22 ALT 11 Alkaline Phosphatase 95 Total Protein 7.3 Albumin 2.9 L Globulin 4.4 Albumin/Globulin Ratio 0.7 L Lipase Venous Blood Potassium Ur Random Creatinine Ur Random Sodium Complement C3 Complement C4 Blood Type Blood Type Confirm Antibody Screen Crossmatch BBK History Checked 10/27/16 10/27/16 10/27/16 05:30 05:30 05:50 WBC RBC Hgb Hct MCV MCH MCHC RDW Plt Count MPV Gran % Lymph % (Auto) [place] % (Auto) Eos % (Auto) Baso % (Auto) Gran # Lymph # [place] # Eos # Baso # Neutrophils % (Manual) Band Neutrophils % Lymphocytes % (Manual) Monocytes % (Manual) Nucleated RBC % Platelet Evaluation Hypochromasia Anisocytosis (manual) pO2 90 H VBG pH 7.17 L* VBG pCO2 18.0 L* VBG HCO3 6.6 L VBG Total CO2 VBG O2 Sat (Calc) 99.3 H VBG Base Excess -20.1 L VBG Potassium Sodium Chloride Glucose Lactate FiO2 Potassium Carbon Dioxide Anion Gap BUN Creatinine Est GFR ( Amer) Est GFR (Non-Af Amer) POC Glucose (mg/dL) Random Glucose Lactic Acid Calcium Phosphorus Magnesium Iron 117 TIBC 131 L % Saturation 90 H Total Bilirubin AST ALT Alkaline Phosphatase Total Protein Albumin Globulin Albumin/Globulin Ratio Lipase Venous Blood Potassium Ur Random Creatinine Ur Random Sodium Complement C3 96.0 Complement C4 24.2 Blood Type Blood Type Confirm Antibody Screen Crossmatch BBK History Checked 10/27/16 10/27/16 10/27/16 07:51 09:00 09:45 WBC RBC Hgb Hct MCV MCH MCHC RDW Plt Count MPV Gran % Lymph % (Auto) [place] % (Auto) Eos % (Auto) Baso % (Auto) Gran # Lymph # [place] # Eos # Baso # Neutrophils % (Manual) Band Neutrophils % Lymphocytes % (Manual) Monocytes % (Manual) Nucleated RBC % Platelet Evaluation Hypochromasia Anisocytosis (manual) pO2 VBG pH VBG pCO2 VBG HCO3 VBG Total CO2 VBG O2 Sat (Calc) VBG Base Excess VBG Potassium Sodium Chloride Glucose Lactate FiO2 Potassium Carbon Dioxide Anion Gap BUN Creatinine Est GFR ( Amer) Est GFR (Non-Af Amer) POC Glucose (mg/dL) 238 H Random Glucose Lactic Acid Calcium Phosphorus Magnesium Iron TIBC % Saturation Total Bilirubin AST ALT Alkaline Phosphatase Total Protein Albumin Globulin Albumin/Globulin Ratio Lipase Venous Blood Potassium Ur Random Creatinine 16 Ur Random Sodium 130 Complement C3 Complement C4 Blood Type B POSITIVE Blood Type Confirm Antibody Screen Negative Crossmatch See Detail BBK History Checked No verified bt 10/27/16 10/27/16 10:00 11:43 WBC RBC Hgb Hct MCV MCH MCHC RDW Plt Count MPV Gran % Lymph % (Auto) [place] % (Auto) Eos % (Auto) Baso % (Auto) Gran # Lymph # [place] # Eos # Baso # Neutrophils % (Manual) Band Neutrophils % Lymphocytes % (Manual) Monocytes % (Manual) Nucleated RBC % Platelet Evaluation Hypochromasia Anisocytosis (manual) pO2 VBG pH VBG pCO2 VBG HCO3 VBG Total CO2 VBG O2 Sat (Calc) VBG Base Excess VBG Potassium Sodium Chloride Glucose Lactate FiO2 Potassium Carbon Dioxide Anion Gap BUN Creatinine Est GFR ( Amer) Est GFR (Non-Af Amer) POC Glucose (mg/dL) 192 H Random Glucose Lactic Acid Calcium Phosphorus Magnesium Iron TIBC % Saturation Total Bilirubin AST ALT Alkaline Phosphatase Total Protein Albumin Globulin Albumin/Globulin Ratio Lipase Venous Blood Potassium Ur Random Creatinine Ur Random Sodium Complement C3 Complement C4 Blood Type Blood Type Confirm B POSITIVE Antibody Screen Crossmatch BBK History Checked Fingerstick Blood Sugar Results: 190 Review of Systems - Review of Systems Review of Systems: Please refer to [facility] Critical Care Progress Note - Ventilator Checklist PUD Prophalyxis: Yes DVT Prophylaxis: Yes - Extremities/Vascular Does the Patient have a Central Venous Catheter?: Yes Insertion Site: Internal Jugular Vein Does the Patient need a Central Venous Catheter?: Yes Does the Patient have a Townsend Catheter?: Yes Does the Patient need a Townsend Catheter?: Yes Catheter Insertion Criteria: Need for accurate measurement of output in critically ill patient - Nutrition Nutrition: Nutrition Category Date Time Status NPO Diet [DIET] Diets 10/26/16 Dinner Ordered Assessment/Plan - Assessment and Plan (Free Text) Assessment: 36 year old female with a past medical history significant for HTN, uncontrolled IDDM and RLE DVT who was admitted to the ICU for septic shock likely secondary to UTI/pyelonephritis, renal failure and metabolic acidosis. Plan: Neuro: -CT Head showed no intracranial pathology -Continues to be lethargic but arousable with orientation to person, place, time and event -Continue Morphine pain control Pulm: -Chest X-Ray showed poor inspiration with low lung volumes and crowded bronchovascular markings -Maintain oxygen saturation >92% -Currently maintaining adequate oxygenation on RA Cardio: -EKG showed normal sinus rhythm at a rate of 87 with normal intervals -Maintain normotension -Currently not requiring vasopressors to maintain adequate perfusion GI: -CT Abdomen/Pelvis showed minimal pericholecystic fluid, no CT findings of appendicitis or diverticulitis, and no renal or ureteral stones or hydronephrosis -Hepatitis B and C workup pending -Continue Protonix -Currently NPO Renal: -BUN/Creatinine at 143/9.1, representing likely EMMETT on CKD -Increased anion gap metabolic acidosis in the setting of advanced renal insufficiency -Continue Bicarb Drip 150 cc/hr in D5W -Random urine sodium and urine creatinine pending -Triple lumen catheter placed today in order to accommodate dialysis -Plan to schedule dialysis within the next 48 hours, approximately -Renal Ultrasound pending -UOP at approximately 50cc over the past 24 hours -Continue strict I/O's with Townsend catheter -Nephrology and Surgery consulted, all recommendations appreciated Endo: -SSI-Medium and Accucheck ACHS -A1C pending MSK -Patient with bilateral chronic ulcers on LE -Currently with appropriate dressing -Podiatry consulted, all recommendations appreciated Heme/Onc: -History of RLE DVT -Bilateral LE Duplex pending -H/H at 6.9/20.2 -Transfused one unit of pRBC's -Platelets stable at 336 -Will continue to monitor with daily CBC's ID: -Currently with a leukocytosis of 18.7 (improving), afebrile, with mild tachycardia in the low 100 range and normotensive -Patient has received a total of approximately 7L -Received one dose of Clindamycin in ED -Continue Merrem -Blood, Urine and MRSA cultures pending -Lactic acid currently WNL -Procal pending -ID consulted, all recommendations appreciated Lines: -Inserted TLC today (10/27) -Continue all peripheral lines GI Prophylaxis: Protonix DVT Prophylaxis: Heparin Disposition: Patient likely to receive dialysis in the next 48 hours. Patient to remain in ICU until HDS. Guarded prognosis at this time. Patient seen and case discussed with attending, Dr. Rosario. - Date & Time Date: 10/27/16 Time: 13:38 <Joey Rosario - Last Filed: 10/27/16 15:34> CCU Objective - Vital Signs / Intake & Output Vital Signs (Last 4 hours): Vital Signs Temp Pulse Resp BP 10/27/16 14:00 104 H 10/27/16 13:31 97.8 F 104 H 22 127/75 10/27/16 13:00 97.9 F 103 H 24 128/80 10/27/16 12:00 98 F 91 H 21 70/38 L Intake and Output (Last 8hrs): Intake & Output 10/27/16 10/27/16 10/27/16 06:59 14:59 22:59 Intake Total 0 4825 Output Total 650 250 Balance -650 4575 Weight 106 lb 116 lb Intake: IV 0 4500 Dobutamine 0 Dopamine 0 Left Forearm 4500 Oral 0 0 Blood Product 325 Red Blood Cells Cpd As1 325 Lr Unit [id number] Output: Urine 650 250 Urine, Voided 650 250 Other: Voiding Method Indwelling Catheter # Bowel Movements 0 - Medications Active Medications: Active Medications Generic Name Dose Route Start Last Admin Trade Name Freq PRN Reason Stop Dose Admin Acetaminophen 650 mg 10/27/16 04:59 Tylenol 325mg Tab PO Q6H PRN Pain, moderate (4-7) Heparin Sodium (Porcine) 5,000 units 10/26/16 22:15 10/27/16 13:04 Heparin SC 5,000 units Q8 JERRICA Administration Protocol Meropenem 250 mg/ Sodium 100 mls @ 100 mls/hr 10/27/16 08:30 10/27/16 09:21 Chloride IVPB 11/10/16 08:31 100 mls/hr Q12H JERRICA Administration Protocol Sodium Bicarbonate 150 meq/ 1,150 mls @ 200 mls/hr 10/27/16 09:30 10/27/16 10 :44 Dextrose IV 200 mls/hr .[id number] JERRICA Administration Insulin Human Lispro 0 units 10/26/16 22:00 10/27/16 12:00 Humalog Med SC Not Given ACHS JERRICA Protocol Morphine Sulfate 1 mg 10/27/16 05:00 10/27/16 05:29 Morphine IVP 1 mg Q6H PRN Administration Pain, severe (8-10) Pantoprazole Sodium 40 mg 10/26/16 22:15 10/27/16 09:21 Protonix Inj IVP 40 mg Q12 JERRICA Administration - Patient Studies Lab Studies: Lab Studies 10/27/16 10/27/16 10/27/16 Range/Units 11:43 10:00 09:45 WBC (4.5-11.0) 10^3/ul RBC (3.5-6.1) 10^6/uL Hgb (12.0-16.0) g/dL Hct (36.0-48.0) % MCV (80.0-105.0) fl MCH (25.0-35.0) pg MCHC (31.0-37.0) g/dl RDW (11.5-14.5) % Plt Count (120.0-450.0) 10^3/uL MPV (7.0-11.0) fl Gran % (50.0-68.0) % Lymph % (Auto) (22.0-35.0) % [place] % (Auto) (1.0-6.0) % Eos % (Auto) (1.5-5.0) % Baso % (Auto) (0.0-3.0) % Gran # (1.4-6.5) Lymph # (1.2-3.4) [place] # (0.1-0.6) Eos # (0.0-0.7) Baso # (0.0-2.0) K/mm3 Neutrophils % (Manual) (50.0-70.0) % Band Neutrophils % (0-2) % Lymphocytes % (Manual) (22.0-35.0) % Monocytes % (Manual) (1.0-6.0) % Nucleated RBC % % Platelet Evaluation (NORMAL) Hypochromasia Anisocytosis (manual) pO2 (30-55) mm/Hg VBG pH (7.32-7.43) VBG pCO2 (40-60) VBG HCO3 (21-28) mmol/l VBG Total CO2 (22-28) mmol.L VBG O2 Sat (Calc) (40-65) % VBG Base Excess (0.0-2.0) mmol/L VBG Potassium (3.6-5.2) mmol/L Sodium (132-148) mmol/L Chloride (98-107) mmol/L Glucose (65-105) mg/dl Lactate (0.7-2.1) mmol/L FiO2 % Potassium (3.6-5.0) mmol/L Carbon Dioxide (21-33) mmol/L Anion Gap (10-20) BUN (7-21) mg/dL Creatinine (0.5-1.4) mg/dL Est GFR ( Amer) Est GFR (Non-Af Amer) POC Glucose (mg/dL) 192 H (65-110) mg/dL Random Glucose (70-110) mg/dL Lactic Acid (0.7-2.1) mmol/L Calcium (8.4-10.5) mg/dL Phosphorus (2.5-4.5) mg/dL Magnesium (1.7-2.2) mg/dL Iron (45-180) ug/dL TIBC (265-497) ug/dL % Saturation (20-55) % Total Bilirubin (0.2-1.3) mg/dL AST (14-36) U/L ALT (7-56) U/L Alkaline Phosphatase (38-126) U/L Total Protein (5.8-8.3) g/dL Albumin (3.0-4.8) g/dL Globulin gm/dL Albumin/Globulin Ratio (1.1-1.8) Lipase (23-300) U/L Venous Blood Potassium (3.6-5.2) mmol/L Ur Random Creatinine mg/dL Ur Random Sodium meq/L Complement C3 (88.0-165.0) mg/dL Complement C4 (14.0-44.0) mg/dL Blood Type B POSITIVE Blood Type Confirm B POSITIVE Antibody Screen Negative Crossmatch See Detail BBK History Checked No verified bt 10/27/16 10/27/16 10/27/16 Range/Units 09:00 07:51 05:50 WBC (4.5-11.0) 10^3/ul RBC (3.5-6.1) 10^6/uL Hgb (12.0-16.0) g/dL Hct (36.0-48.0) % MCV (80.0-105.0) fl MCH (25.0-35.0) pg MCHC (31.0-37.0) g/dl RDW (11.5-14.5) % Plt Count (120.0-450.0) 10^3/uL MPV (7.0-11.0) fl Gran % (50.0-68.0) % Lymph % (Auto) (22.0-35.0) % [place] % (Auto) (1.0-6.0) % Eos % (Auto) (1.5-5.0) % Baso % (Auto) (0.0-3.0) % Gran # (1.4-6.5) Lymph # (1.2-3.4) [place] # (0.1-0.6) Eos # (0.0-0.7) Baso # (0.0-2.0) K/mm3 Neutrophils % (Manual) (50.0-70.0) % Band Neutrophils % (0-2) % Lymphocytes % (Manual) (22.0-35.0) % Monocytes % (Manual) (1.0-6.0) % Nucleated RBC % % Platelet Evaluation (NORMAL) Hypochromasia Anisocytosis (manual) pO2 90 H (30-55) mm/Hg VBG pH 7.17 L* (7.32-7.43) VBG pCO2 18.0 L* (40-60) VBG HCO3 6.6 L (21-28) mmol/l VBG Total CO2 (22-28) mmol.L VBG O2 Sat (Calc) 99.3 H (40-65) % VBG Base Excess -20.1 L (0.0-2.0) mmol/L VBG Potassium (3.6-5.2) mmol/L Sodium (132-148) mmol/L Chloride (98-107) mmol/L Glucose (65-105) mg/dl Lactate (0.7-2.1) mmol/L FiO2 % Potassium (3.6-5.0) mmol/L Carbon Dioxide (21-33) mmol/L Anion Gap (10-20) BUN (7-21) mg/dL Creatinine (0.5-1.4) mg/dL Est GFR ( Amer) Est GFR (Non-Af Amer) POC Glucose (mg/dL) 238 H (65-110) mg/dL Random Glucose (70-110) mg/dL Lactic Acid (0.7-2.1) mmol/L Calcium (8.4-10.5) mg/dL Phosphorus (2.5-4.5) mg/dL Magnesium (1.7-2.2) mg/dL Iron (45-180) ug/dL TIBC (265-497) ug/dL % Saturation (20-55) % Total Bilirubin (0.2-1.3) mg/dL AST (14-36) U/L ALT (7-56) U/L Alkaline Phosphatase (38-126) U/L Total Protein (5.8-8.3) g/dL Albumin (3.0-4.8) g/dL Globulin gm/dL Albumin/Globulin Ratio (1.1-1.8) Lipase (23-300) U/L Venous Blood Potassium (3.6-5.2) mmol/L Ur Random Creatinine 16 mg/dL Ur Random Sodium 130 meq/L Complement C3 (88.0-165.0) mg/dL Complement C4 (14.0-44.0) mg/dL Blood Type Blood Type Confirm Antibody Screen Crossmatch BBK History Checked 10/27/16 10/27/16 10/27/16 Range/Units 05:30 05:30 05:30 WBC (4.5-11.0) 10^3/ul RBC (3.5-6.1) 10^6/uL Hgb (12.0-16.0) g/dL Hct (36.0-48.0) % MCV (80.0-105.0) fl MCH (25.0-35.0) pg MCHC (31.0-37.0) g/dl RDW (11.5-14.5) % Plt Count (120.0-450.0) 10^3/uL MPV (7.0-11.0) fl Gran % (50.0-68.0) % Lymph % (Auto) (22.0-35.0) % [place] % (Auto) (1.0-6.0) % Eos % (Auto) (1.5-5.0) % Baso % (Auto) (0.0-3.0) % Gran # (1.4-6.5) Lymph # (1.2-3.4) [place] # (0.1-0.6) Eos # (0.0-0.7) Baso # (0.0-2.0) K/mm3 Neutrophils % (Manual) (50.0-70.0) % Band Neutrophils % (0-2) % Lymphocytes % (Manual) (22.0-35.0) % Monocytes % (Manual) (1.0-6.0) % Nucleated RBC % % Platelet Evaluation (NORMAL) Hypochromasia Anisocytosis (manual) pO2 (30-55) mm/Hg VBG pH (7.32-7.43) VBG pCO2 (40-60) VBG HCO3 (21-28) mmol/l VBG Total CO2 (22-28) mmol.L VBG O2 Sat (Calc) (40-65) % VBG Base Excess (0.0-2.0) mmol/L VBG Potassium (3.6-5.2) mmol/L Sodium 133 (132-148) mmol/L Chloride 108 H (98-107) mmol/L Glucose (65-105) mg/dl Lactate (0.7-2.1) mmol/L FiO2 % Potassium 3.9 (3.6-5.0) mmol/L Carbon Dioxide 6 L D (21-33) mmol/L Anion Gap 23 H (10-20) BUN 143 H* (7-21) mg/dL Creatinine 9.1 H* (0.5-1.4) mg/dL Est GFR ( Amer) 6 Est GFR (Non-Af Amer) 5 POC Glucose (mg/dL) (65-110) mg/dL Random Glucose 275 H (70-110) mg/dL Lactic Acid (0.7-2.1) mmol/L Calcium 7.7 L (8.4-10.5) mg/dL Phosphorus 8.3 H (2.5-4.5) mg/dL Magnesium 1.6 L (1.7-2.2) mg/dL Iron 117 (45-180) ug/dL TIBC 131 L (265-497) ug/dL % Saturation 90 H (20-55) % Total Bilirubin 0.5 (0.2-1.3) mg/dL AST 22 (14-36) U/L ALT 11 (7-56) U/L Alkaline Phosphatase 95 (38-126) U/L Total Protein 7.3 (5.8-8.3) g/dL Albumin 2.9 L (3.0-4.8) g/dL Globulin 4.4 gm/dL Albumin/Globulin Ratio 0.7 L (1.1-1.8) Lipase (23-300) U/L Venous Blood Potassium (3.6-5.2) mmol/L Ur Random Creatinine mg/dL Ur Random Sodium meq/L Complement C3 96.0 (88.0-165.0) mg/dL Complement C4 24.2 (14.0-44.0) mg/dL Blood Type Blood Type Confirm Antibody Screen Crossmatch BBK History Checked 10/27/16 10/27/16 10/27/16 Range/Units 05:30 05:21 02:55 WBC 18.7 H D (4.5-11.0) 10^3/ul RBC 2.60 L (3.5-6.1) 10^6/uL Hgb 6.9 L* (12.0-16.0) g/dL Hct 20.2 L* (36.0-48.0) % MCV 77.7 L (80.0-105.0) fl MCH 26.5 (25.0-35.0) pg MCHC 34.2 (31.0-37.0) g/dl RDW 16.0 H (11.5-14.5) % Plt Count 336 (120.0-450.0) 10^3/uL MPV 8.9 (7.0-11.0) fl Gran % 94.0 H (50.0-68.0) % Lymph % (Auto) 2.3 L (22.0-35.0) % [place] % (Auto) 3.1 (1.0-6.0) % Eos % (Auto) 0.5 L (1.5-5.0) % Baso % (Auto) 0.1 (0.0-3.0) % Gran # 17.63 H (1.4-6.5) Lymph # 0.4 L (1.2-3.4) [place] # 0.6 (0.1-0.6) Eos # 0.1 (0.0-0.7) Baso # 0.01 (0.0-2.0) K/mm3 Neutrophils % (Manual) 89 H (50.0-70.0) % Band Neutrophils % 1 (0-2) % Lymphocytes % (Manual) 5 L (22.0-35.0) % Monocytes % (Manual) 5 (1.0-6.0) % Nucleated RBC % 4 % Platelet Evaluation Normal (NORMAL) Hypochromasia Slight Anisocytosis (manual) Slight pO2 (30-55) mm/Hg VBG pH (7.32-7.43) VBG pCO2 (40-60) VBG HCO3 (21-28) mmol/l VBG Total CO2 (22-28) mmol.L VBG O2 Sat (Calc) (40-65) % VBG Base Excess (0.0-2.0) mmol/L VBG Potassium (3.6-5.2) mmol/L Sodium (132-148) mmol/L Chloride (98-107) mmol/L Glucose (65-105) mg/dl Lactate (0.7-2.1) mmol/L FiO2 % Potassium (3.6-5.0) mmol/L Carbon Dioxide (21-33) mmol/L Anion Gap (10-20) BUN (7-21) mg/dL Creatinine (0.5-1.4) mg/dL Est GFR ( Amer) Est GFR (Non-Af Amer) POC Glucose (mg/dL) 287 H 301 H (65-110) mg/dL Random Glucose (70-110) mg/dL Lactic Acid (0.7-2.1) mmol/L Calcium (8.4-10.5) mg/dL Phosphorus (2.5-4.5) mg/dL Magnesium (1.7-2.2) mg/dL Iron (45-180) ug/dL TIBC (265-497) ug/dL % Saturation (20-55) % Total Bilirubin (0.2-1.3) mg/dL AST (14-36) U/L ALT (7-56) U/L Alkaline Phosphatase (38-126) U/L Total Protein (5.8-8.3) g/dL Albumin (3.0-4.8) g/dL Globulin gm/dL Albumin/Globulin Ratio (1.1-1.8) Lipase (23-300) U/L Venous Blood Potassium (3.6-5.2) mmol/L Ur Random Creatinine mg/dL Ur Random Sodium meq/L Complement C3 (88.0-165.0) mg/dL Complement C4 (14.0-44.0) mg/dL Blood Type Blood Type Confirm Antibody Screen Crossmatch BBK History Checked 10/27/16 10/26/16 10/26/16 Range/Units 01:05 23:45 23:45 WBC (4.5-11.0) 10^3/ul RBC (3.5-6.1) 10^6/uL Hgb (12.0-16.0) g/dL Hct (36.0-48.0) % MCV (80.0-105.0) fl MCH (25.0-35.0) pg MCHC (31.0-37.0) g/dl RDW (11.5-14.5) % Plt Count (120.0-450.0) 10^3/uL MPV (7.0-11.0) fl Gran % (50.0-68.0) % Lymph % (Auto) (22.0-35.0) % [place] % (Auto) (1.0-6.0) % Eos % (Auto) (1.5-5.0) % Baso % (Auto) (0.0-3.0) % Gran # (1.4-6.5) Lymph # (1.2-3.4) [place] # (0.1-0.6) Eos # (0.0-0.7) Baso # (0.0-2.0) K/mm3 Neutrophils % (Manual) (50.0-70.0) % Band Neutrophils % (0-2) % Lymphocytes % (Manual) (22.0-35.0) % Monocytes % (Manual) (1.0-6.0) % Nucleated RBC % % Platelet Evaluation (NORMAL) Hypochromasia Anisocytosis (manual) pO2 78 H (30-55) mm/Hg VBG pH 7.07 L* (7.32-7.43) VBG pCO2 17.0 L* (40-60) VBG HCO3 4.9 L (21-28) mmol/l VBG Total CO2 5.4 L (22-28) mmol.L VBG O2 Sat (Calc) 98.3 H (40-65) % VBG Base Excess -23.3 L (0.0-2.0) mmol/L VBG Potassium 4.6 (3.6-5.2) mmol/L Sodium 130.0 L (132-148) mmol/L Chloride 107.0 (98-107) mmol/L Glucose 249 H (65-105) mg/dl Lactate 0.5 L (0.7-2.1) mmol/L FiO2 21.0 % Potassium (3.6-5.0) mmol/L Carbon Dioxide (21-33) mmol/L Anion Gap (10-20) BUN (7-21) mg/dL Creatinine (0.5-1.4) mg/dL Est GFR ( Amer) Est GFR (Non-Af Amer) POC Glucose (mg/dL) 264 H (65-110) mg/dL Random Glucose (70-110) mg/dL Lactic Acid 0.6 L (0.7-2.1) mmol/L Calcium (8.4-10.5) mg/dL Phosphorus (2.5-4.5) mg/dL Magnesium (1.7-2.2) mg/dL Iron (45-180) ug/dL TIBC (265-497) ug/dL % Saturation (20-55) % Total Bilirubin (0.2-1.3) mg/dL AST (14-36) U/L ALT (7-56) U/L Alkaline Phosphatase (38-126) U/L Total Protein (5.8-8.3) g/dL Albumin (3.0-4.8) g/dL Globulin gm/dL Albumin/Globulin Ratio (1.1-1.8) Lipase (23-300) U/L Venous Blood Potassium 4.6 (3.6-5.2) mmol/L Ur Random Creatinine mg/dL Ur Random Sodium meq/L Complement C3 (88.0-165.0) mg/dL Complement C4 (14.0-44.0) mg/dL Blood Type Blood Type Confirm Antibody Screen Crossmatch BBK History Checked 10/26/16 10/26/16 Range/Units 23:45 23:45 WBC 23.7 H (4.5-11.0) 10^3/ul RBC 2.83 L (3.5-6.1) 10^6/uL Hgb 7.6 L (12.0-16.0) g/dL Hct 22.4 L (36.0-48.0) % MCV 79.2 L (80.0-105.0) fl MCH 26.9 (25.0-35.0) pg MCHC 33.9 (31.0-37.0) g/dl RDW 16.0 H (11.5-14.5) % Plt Count 364 (120.0-450.0) 10^3/uL MPV 8.7 (7.0-11.0) fl Gran % (50.0-68.0) % Lymph % (Auto) (22.0-35.0) % [place] % (Auto) (1.0-6.0) % Eos % (Auto) (1.5-5.0) % Baso % (Auto) (0.0-3.0) % Gran # (1.4-6.5) Lymph # (1.2-3.4) [place] # (0.1-0.6) Eos # (0.0-0.7) Baso # (0.0-2.0) K/mm3 Neutrophils % (Manual) (50.0-70.0) % Band Neutrophils % (0-2) % Lymphocytes % (Manual) (22.0-35.0) % Monocytes % (Manual) (1.0-6.0) % Nucleated RBC % % Platelet Evaluation (NORMAL) Hypochromasia Anisocytosis (manual) pO2 (30-55) mm/Hg VBG pH (7.32-7.43) VBG pCO2 (40-60) VBG HCO3 (21-28) mmol/l VBG Total CO2 (22-28) mmol.L VBG O2 Sat (Calc) (40-65) % VBG Base Excess (0.0-2.0) mmol/L VBG Potassium (3.6-5.2) mmol/L Sodium 133 (132-148) mmol/L Chloride 107 (98-107) mmol/L Glucose (65-105) mg/dl Lactate (0.7-2.1) mmol/L FiO2 % Potassium 4.5 (3.6-5.0) mmol/L Carbon Dioxide 5 L D (21-33) mmol/L Anion Gap 26 H (10-20) BUN 144 H* (7-21) mg/dL Creatinine 10.0 H* (0.5-1.4) mg/dL Est GFR ( Amer) 5 Est GFR (Non-Af Amer) 4 POC Glucose (mg/dL) (65-110) mg/dL Random Glucose 235 H (70-110) mg/dL Lactic Acid (0.7-2.1) mmol/L Calcium 8.0 L (8.4-10.5) mg/dL Phosphorus (2.5-4.5) mg/dL Magnesium (1.7-2.2) mg/dL Iron (45-180) ug/dL TIBC (265-497) ug/dL % Saturation (20-55) % Total Bilirubin 0.6 (0.2-1.3) mg/dL AST 12 L (14-36) U/L ALT 9 (7-56) U/L Alkaline Phosphatase 108 (38-126) U/L Total Protein 8.1 (5.8-8.3) g/dL Albumin 3.0 (3.0-4.8) g/dL Globulin 5.1 gm/dL Albumin/Globulin Ratio 0.6 L (1.1-1.8) Lipase 78 (23-300) U/L Venous Blood Potassium (3.6-5.2) mmol/L Ur Random Creatinine mg/dL Ur Random Sodium meq/L Complement C3 (88.0-165.0) mg/dL Complement C4 (14.0-44.0) mg/dL Blood Type Blood Type Confirm Antibody Screen Crossmatch BBK History Checked Laboratory Results - last 24 hr 10/26/16 10/26/16 10/26/16 23:45 23:45 23:45 WBC 23.7 H RBC 2.83 L Hgb 7.6 L Hct 22.4 L MCV 79.2 L MCH 26.9 MCHC 33.9 RDW 16.0 H Plt Count 364 MPV 8.7 Gran % Lymph % (Auto) [place] % (Auto) Eos % (Auto) Baso % (Auto) Gran # Lymph # [place] # Eos # Baso # Neutrophils % (Manual) Band Neutrophils % Lymphocytes % (Manual) Monocytes % (Manual) Nucleated RBC % Platelet Evaluation Hypochromasia Anisocytosis (manual) pO2 78 H VBG pH 7.07 L* VBG pCO2 17.0 L* VBG HCO3 4.9 L VBG Total CO2 5.4 L VBG O2 Sat (Calc) 98.3 H VBG Base Excess -23.3 L VBG Potassium 4.6 Sodium 133 130.0 L Chloride 107 107.0 Glucose 249 H Lactate 0.5 L FiO2 21.0 Potassium 4.5 Carbon Dioxide 5 L D Anion Gap 26 H BUN 144 H* Creatinine 10.0 H* Est GFR ( Amer) 5 Est GFR (Non-Af Amer) 4 POC Glucose (mg/dL) Random Glucose 235 H Lactic Acid Calcium 8.0 L Phosphorus Magnesium Iron TIBC % Saturation Total Bilirubin 0.6 AST 12 L ALT 9 Alkaline Phosphatase 108 Total Protein 8.1 Albumin 3.0 Globulin 5.1 Albumin/Globulin Ratio 0.6 L Lipase 78 Venous Blood Potassium 4.6 Ur Random Creatinine Ur Random Sodium Complement C3 Complement C4 Blood Type Blood Type Confirm Antibody Screen Crossmatch BBK History Checked 10/26/16 10/27/16 10/27/16 23:45 01:05 02:55 WBC RBC Hgb Hct MCV MCH MCHC RDW Plt Count MPV Gran % Lymph % (Auto) [place] % (Auto) Eos % (Auto) Baso % (Auto) Gran # Lymph # [place] # Eos # Baso # Neutrophils % (Manual) Band Neutrophils % Lymphocytes % (Manual) Monocytes % (Manual) Nucleated RBC % Platelet Evaluation Hypochromasia Anisocytosis (manual) pO2 VBG pH VBG pCO2 VBG HCO3 VBG Total CO2 VBG O2 Sat (Calc) VBG Base Excess VBG Potassium Sodium Chloride Glucose Lactate FiO2 Potassium Carbon Dioxide Anion Gap BUN Creatinine Est GFR ( Amer) Est GFR (Non-Af Amer) POC Glucose (mg/dL) 264 H 301 H Random Glucose Lactic Acid 0.6 L Calcium Phosphorus Magnesium Iron TIBC % Saturation Total Bilirubin AST ALT Alkaline Phosphatase Total Protein Albumin Globulin Albumin/Globulin Ratio Lipase Venous Blood Potassium Ur Random Creatinine Ur Random Sodium Complement C3 Complement C4 Blood Type Blood Type Confirm Antibody Screen Crossmatch BBK History Checked 10/27/16 10/27/16 10/27/16 05:21 05:30 05:30 WBC 18.7 H D RBC 2.60 L Hgb 6.9 L* Hct 20.2 L* MCV 77.7 L MCH 26.5 MCHC 34.2 RDW 16.0 H Plt Count 336 MPV 8.9 Gran % 94.0 H Lymph % (Auto) 2.3 L [place] % (Auto) 3.1 Eos % (Auto) 0.5 L Baso % (Auto) 0.1 Gran # 17.63 H Lymph # 0.4 L [place] # 0.6 Eos # 0.1 Baso # 0.01 Neutrophils % (Manual) 89 H Band Neutrophils % 1 Lymphocytes % (Manual) 5 L Monocytes % (Manual) 5 Nucleated RBC % 4 Platelet Evaluation Normal Hypochromasia Slight Anisocytosis (manual) Slight pO2 VBG pH VBG pCO2 VBG HCO3 VBG Total CO2 VBG O2 Sat (Calc) VBG Base Excess VBG Potassium Sodium 133 Chloride 108 H Glucose Lactate FiO2 Potassium 3.9 Carbon Dioxide 6 L D Anion Gap 23 H BUN 143 H* Creatinine 9.1 H* Est GFR ( Amer) 6 Est GFR (Non-Af Amer) 5 POC Glucose (mg/dL) 287 H Random Glucose 275 H Lactic Acid Calcium 7.7 L Phosphorus 8.3 H Magnesium 1.6 L Iron TIBC % Saturation Total Bilirubin 0.5 AST 22 ALT 11 Alkaline Phosphatase 95 Total Protein 7.3 Albumin 2.9 L Globulin 4.4 Albumin/Globulin Ratio 0.7 L Lipase Venous Blood Potassium Ur Random Creatinine Ur Random Sodium Complement C3 Complement C4 Blood Type Blood Type Confirm Antibody Screen Crossmatch BBK History Checked 10/27/16 10/27/16 10/27/16 05:30 05:30 05:50 WBC RBC Hgb Hct MCV MCH MCHC RDW Plt Count MPV Gran % Lymph % (Auto) [place] % (Auto) Eos % (Auto) Baso % (Auto) Gran # Lymph # [place] # Eos # Baso # Neutrophils % (Manual) Band Neutrophils % Lymphocytes % (Manual) Monocytes % (Manual) Nucleated RBC % Platelet Evaluation Hypochromasia Anisocytosis (manual) pO2 90 H VBG pH 7.17 L* VBG pCO2 18.0 L* VBG HCO3 6.6 L VBG Total CO2 VBG O2 Sat (Calc) 99.3 H VBG Base Excess -20.1 L VBG Potassium Sodium Chloride Glucose Lactate FiO2 Potassium Carbon Dioxide Anion Gap BUN Creatinine Est GFR ( Amer) Est GFR (Non-Af Amer) POC Glucose (mg/dL) Random Glucose Lactic Acid Calcium Phosphorus Magnesium Iron 117 TIBC 131 L % Saturation 90 H Total Bilirubin AST ALT Alkaline Phosphatase Total Protein Albumin Globulin Albumin/Globulin Ratio Lipase Venous Blood Potassium Ur Random Creatinine Ur Random Sodium Complement C3 96.0 Complement C4 24.2 Blood Type Blood Type Confirm Antibody Screen Crossmatch BBK History Checked 10/27/16 10/27/16 10/27/16 07:51 09:00 09:45 WBC RBC Hgb Hct MCV MCH MCHC RDW Plt Count MPV Gran % Lymph % (Auto) [place] % (Auto) Eos % (Auto) Baso % (Auto) Gran # Lymph # [place] # Eos # Baso # Neutrophils % (Manual) Band Neutrophils % Lymphocytes % (Manual) Monocytes % (Manual) Nucleated RBC % Platelet Evaluation Hypochromasia Anisocytosis (manual) pO2 VBG pH VBG pCO2 VBG HCO3 VBG Total CO2 VBG O2 Sat (Calc) VBG Base Excess VBG Potassium Sodium Chloride Glucose Lactate FiO2 Potassium Carbon Dioxide Anion Gap BUN Creatinine Est GFR ( Amer) Est GFR (Non-Af Amer) POC Glucose (mg/dL) 238 H Random Glucose Lactic Acid Calcium Phosphorus Magnesium Iron TIBC % Saturation Total Bilirubin AST ALT Alkaline Phosphatase Total Protein Albumin Globulin Albumin/Globulin Ratio Lipase Venous Blood Potassium Ur Random Creatinine 16 Ur Random Sodium 130 Complement C3 Complement C4 Blood Type B POSITIVE Blood Type Confirm Antibody Screen Negative Crossmatch See Detail BBK History Checked No verified bt 10/27/16 10/27/16 10:00 11:43 WBC RBC Hgb Hct MCV MCH MCHC RDW Plt Count MPV Gran % Lymph % (Auto) [place] % (Auto) Eos % (Auto) Baso % (Auto) Gran # Lymph # [place] # Eos # Baso # Neutrophils % (Manual) Band Neutrophils % Lymphocytes % (Manual) Monocytes % (Manual) Nucleated RBC % Platelet Evaluation Hypochromasia Anisocytosis (manual) pO2 VBG pH VBG pCO2 VBG HCO3 VBG Total CO2 VBG O2 Sat (Calc) VBG Base Excess VBG Potassium Sodium Chloride Glucose Lactate FiO2 Potassium Carbon Dioxide Anion Gap BUN Creatinine Est GFR ( Amer) Est GFR (Non-Af Amer) POC Glucose (mg/dL) 192 H Random Glucose Lactic Acid Calcium Phosphorus Magnesium Iron TIBC % Saturation Total Bilirubin AST ALT Alkaline Phosphatase Total Protein Albumin Globulin Albumin/Globulin Ratio Lipase Venous Blood Potassium Ur Random Creatinine Ur Random Sodium Complement C3 Complement C4 Blood Type Blood Type Confirm B POSITIVE Antibody Screen Crossmatch BBK History Checked Critical Care Progress Note - Nutrition Nutrition: Nutrition Category Date Time Status NPO Diet [DIET] Diets 10/26/16 Dinner Ordered Assessment/Plan - Assessment and Plan (Free Text) Plan: Patient seen and examined on rounds with Dr Rocha, agree with note, A/P 36 year old female with a past medical history significant for HTN, uncontrolled IDDM and RLE DVT who was admitted to the ICU for septic shock likely secondary to UTI/pyelonephritis, renal failure and metabolic acidosis. Currently afebrile, HD stable, SBP 120s, off pressors. On exam AAoX3, NAD, benign abd exam, Labs with worsening acute on CKD, on bicarb drip. HD catheter placed today, HD to start today. Renal following Severe Sepsis UTI Renal Failure Metabolic Acidosis Leukocytosis Recommend: - supp o2 as needed - broad spectrum abx, Merrem, Vanco IV - Folow up cultures, follow up ID - hold all BP meds - cont with bicarb drip as per renal - repeat VBG - HD as per renal - obtain LE duplex - transfuse 1u PRBC - repeat HH - DVT ppx - GI ppx critical care time 35 minutes
--- NOTE | 2016-10-27 13:45 | CARD ---
APPROVED REPORT EKG Measurement Heart [id number] <Conclusion> Normal sinus rhythm Normal ECG
--- NOTE | 2016-10-27 15:03 | CP.PCM.PN ---
Objective - Vital Signs/Intake and Output Vital Signs (last 24 hours): Temp Pulse Resp BP Pulse Ox 97.8 F 104 H 22 127/75 100 10/27/16 13:31 10/27/16 14:00 10/27/16 13:31 10/27/16 13:31 10/27/16 11:00 Intake and Output: 10/27/16 10/27/16 06:59 18:59 Intake Total 0 4825 Output Total 650 250 Balance -650 4575 - Medications Medications: Current Medications Acetaminophen (Tylenol 325mg Tab) 650 mg PO Q6H PRN PRN Reason: Pain, moderate (4-7) Heparin Sodium (Porcine) (Heparin) 5,000 units SC Q8 JERRICA PRN Reason: Protocol Last Admin: 10/27/16 13:04 Dose: 5,000 units Meropenem 250 mg/ Sodium (Chloride) 100 mls @ 100 mls/hr IVPB Q12H JERRICA PRN Reason: Protocol Stop: 11/10/16 08:31 Last Admin: 10/27/16 09:21 Dose: 100 mls/hr Sodium Bicarbonate 150 meq/ (Dextrose) 1,150 mls @ 200 mls/hr IV .[id number] [facility] Last Admin: 10/27/16 10:44 Dose: 200 mls/hr Insulin Human Lispro (Humalog Med) 0 units SC ACHS JERRICA PRN Reason: Protocol Last Admin: 10/27/16 12:00 Dose: Not Given Morphine Sulfate (Morphine) 1 mg IVP Q6H PRN PRN Reason: Pain, severe (8-10) Last Admin: 10/27/16 05:29 Dose: 1 mg Pantoprazole Sodium (Protonix Inj) 40 mg IVP Q12 [facility] Last Admin: 10/27/16 09:21 Dose: 40 mg - Labs Labs: 10/27/16 05:30 10/27/16 05:30 PT 13.3 Seconds (9.9-11.8) H 10/26/16 20:30 INR 1.23 (0.93-1.08) H 10/26/16 20:30 APTT 40.6 Seconds (23.7-30.8) H 10/26/16 20:30 Assessment and Plan (1) Acute renal failure Status: Acute (2) CKD (chronic kidney disease) Status: Acute (3) Anemia Status: Acute (4) Metabolic acidosis Status: Acute (5) Sepsis Status: Acute
[2016-10-27 15:35] LABS: BASO # 0.01 K/mm3 (0.0-2.0); EOS # 0.1 (0.0-0.7); EOS % 0.5 % (1.5-5.0); GRAN # 22.48 (1.4-6.5); GRAN % 94.8 % (50.0-68.0); LYMPH # 0.4 (1.2-3.4); LYMPH % 1.8 % (22.0-35.0); MEAN CELL VOLUME 79.8 fl (80.0-105.0); MEAN CORPUSCULAR HEMOGLOBIN 27.6 pg (25.0-35.0); MEAN CORPUSCULAR HGB CONC 34.6 g/dl (31.0-37.0); MEAN PLATELET VOLUME 8.9 fl (7.0-11.0); MONO # 0.7 (0.1-0.6); MONO % 2.9 % (1.0-6.0); PLATELET COUNT 292 10^3/uL (120.0-450.0); RED CELL DISTRIBUTION WIDTH 16.1 % (11.5-14.5); RETIC% 2.14 % (0.5-1.5); WHITE BLOOD COUNT 23.7 10^3/ul (4.5-11.0)
[2016-10-27 15:39] LABS: HEMATOCRIT 20.5 % (36.0-48.0)
--- NOTE | 2016-10-27 16:27 | PCM.PROC ---
Procedures Attestation:: I certify that I have explained the specified Operation(s) or Procedure(s), risks, benefits and reasonable alternatives to the Patient and/or other person responsible. The opportunity was given to ask questions and all questions answered - Central Line Placement Right Internal Jugular Hemodialysis Access Aseptic technique was employed throughout the procedure: Hand Hygiene done prior to procedure, Full sterile barriers (mask, hair cover, sterile gown, sterile gloves), Full body sterile drape, Chloraprep Antiseptic: 30 second prep for IJ or SC sites CVP Time Out Performed: Yes Pt. Placed on Pulse Ox Monitor: Yes Central Line Prep: Chlorhexidine-Alcohol Combination Local Anesthesia Used: Lidocaine 1% Amount of Anesthesia Used (mls): 5 Ultrasound Used for Placement: Yes Central Line Lumen Inserted: triple (Depth of 14cm at skin level (15cm total length of catheter)) Post Procedure: Sutured in Place, Good Blood Return, All Ports Aspirated, Flushed, Capped, Sterile Dressing Applied Secured by: Suture Post procedure dressing: Clear vapor permeable, Chlorhexidine disc (Biopatch) Post Procedure X-Ray: Yes Patient Tolerated Procedure: Well, No Complications Immediate Complications: None Additional Comments: Patient tolerated procedure well. No complaints. CXR reviewed with no pneuthorax. Line at adequate position.
--- NOTE | 2016-10-27 22:12 | CON ---
DATE: LOCATION: The patient is seen in CCU 129, bed 4. CHIEF COMPLAINT: Abdominal pain x3 days. HISTORY OF PRESENT ILLNESS: This is a 36-year-old female with diabetes mellitus, hypertension, right leg DVT, anemia, history of right foot cellulitis and admitted through the emergency room with abdominal pain, seen by Dr. Renetta Moraes in the emergency room associated with nausea and vomiting, bilateral flank pain, fevers and chills. No chest pain, shortness of breath or cough. No headaches or blurred vision. PAST MEDICAL HISTORY: Significant for diabetes mellitus with neuropathy and right leg DVT, hypertension, right foot cellulitis. PAST SURGICAL HISTORY: Significant for . ALLERGIES: THE PATIENT IS ALLERGIC TO VANCOMYCIN, DEVELOPS A RASH. MEDICATIONS AT HOME: Include Protonix, insulin, bicarb and iron. PHYSICAL EXAMINATION: VITAL SIGNS: The patient is in bed, in 129, bed 4 with a Abel Hugger blanket over her, with a temperature of 90, is in the emergency room, is up to 93 this morning, heart rate of 104, respiratory rate of 20, this morning it was up to 28, yesterday 22, earlier this morning with a blood pressure of 100/48, it was down to 87/51, yesterday it was down to 68/41. HEENT: Unremarkable. NECK: Supple. LUNGS: Decreased breath sounds. HEART: Normal S1 and S2. ABDOMEN: Soft, mild tenderness. No rebound and no guarding. There is CVA tenderness. LABORATORY DATA: Reveals the patient had a CAT scan of the abdomen and pelvis, which revealed unremarkable liver, urinary bladder empty, no stones, no evidence of appendicitis or diverticulitis. Laboratory examination reveals a white count of 25,600, hemoglobin of 7, platelets of 377, coagulation is noted. The differential in the 25,000 is 85% granulocytosis. Coagulation is noted. Chemistry reveals a BUN of 143 with a creatinine of 9.1. The patient's creatinine before was 3.3 in 09/25/2016, last month had gone up to creatinine of 11 today and rather yesterday and urinalysis reveals too numerous to count wbc's, large bacteria, leukocyte esterase. Toxicology is negative. HIV is pending, hepatitis B surface antigen is pending. The patient had an HIV test done in 2013, which was negative. ASSESSMENT AND PLAN: This is a 36-year-old female with diabetes, hypertension,diabetic neuropathy, history of right leg deep vein thrombosis, anemia, right foot cellulitis, actually her foot does have 3 ulcers and the left foot heel ulcers with severe sepsis with pyelonephritis and urine as the source with acute kidney injury. We will treat the patient with meropenem, check on the blood cultures, urine cultures and will make further recommendations, pending cross cultures in response in this patient who is in critical condition. Dusty Crabtree MD
[2016-10-28 00:19] LABS: BASO # 0.01 K/mm3 (0.0-2.0); EOS # 0.2 (0.0-0.7); EOS % 0.7 % (1.5-5.0); GRAN # 25.53 (1.4-6.5); GRAN % 93.6 % (50.0-68.0); LYMPH # 0.6 (1.2-3.4); LYMPH % 2.3 % (22.0-35.0); MEAN CELL VOLUME 77.2 fl (80.0-105.0); MEAN CORPUSCULAR HEMOGLOBIN 27.6 pg (25.0-35.0); MEAN CORPUSCULAR HGB CONC 35.7 g/dl (31.0-37.0); MEAN PLATELET VOLUME 8.3 fl (7.0-11.0); MONO # 0.9 (0.1-0.6); MONO % 3.4 % (1.0-6.0); RED CELL DISTRIBUTION WIDTH 15.6 % (11.5-14.5)
[2016-10-28 00:38] LABS: WHITE BLOOD COUNT 27.3 10^3/ul (4.5-11.0)
[2016-10-28 07:00] LABS: ALB/GLOB RATIO 0.6 (1.1-1.8); CALCIUM 7.7 mg/dL (8.4-10.5); MAGNESIUM 1.7 mg/dL (1.7-2.2); PHOSPHOROUS 5.6 mg/dL (2.5-4.5); POTASSIUM 3.4 mmol/L (3.6-5.0); TOTAL PROTEIN 6.9 g/dL (5.8-8.3)
[2016-10-28 07:09] LABS: BASO # 0.01 K/mm3 (0.0-2.0); EOS # 0.2 (0.0-0.7); EOS % 0.7 % (1.5-5.0); GRAN # 25.46 (1.4-6.5); GRAN % 92.7 % (50.0-68.0); LYMPH # 0.4 (1.2-3.4); LYMPH % 1.5 % (22.0-35.0); MEAN CELL VOLUME 77.9 fl (80.0-105.0); MEAN CORPUSCULAR HEMOGLOBIN 27.1 pg (25.0-35.0); MEAN CORPUSCULAR HGB CONC 34.8 g/dl (31.0-37.0); MONO # 1.4 (0.1-0.6); MONO % 5.1 % (1.0-6.0); RED CELL DISTRIBUTION WIDTH 15.8 % (11.5-14.5)
[2016-10-28] MEDS: Insulin Lispro (humaLOG) MEDIUM Coverage SC SCH ×4 (07:30→21:19)
[2016-10-28 07:40] LABS: HEMATOCRIT 20.4 % (36.0-48.0); WHITE BLOOD COUNT 27.5 10^3/ul (4.5-11.0)
--- NOTE | 2016-10-28 08:21 | US ---
PROCEDURE: Ultrasound of the Kidneys HISTORY: evaluate for hydronephrosis/pyelo/stones COMPARISON: None available. TECHNIQUE: Sonogram of the kidneys. FINDINGS: RIGHT KIDNEY: Measures: cm. Normal in size, and contour. Increased echogenicity. No stone, solid mass lesion or hydronephrosis visualized. LEFT KIDNEY: Measures: cm. Normal in size, contour. Increased echogenicity. No stone, solid mass lesion or hydronephrosis visualized. OTHER FINDINGS: None. IMPRESSION: Increased bilateral renal echogenicity suggestive of medical renal disease.
--- NOTE | 2016-10-28 08:26 | CP.PCM.PN ---
Subjective - Date & Time of Evaluation Date of Evaluation: 10/28/16 Time of Evaluation: 08:23 - Subjective Subjective: General Surgery progress note for Dr. Richard PT S&E at bedside. FRANCISCO. PAtient tolerated R IJ insertion of catheter at bedside yesterday. Patient is tachycardic at bedside at 103bpm 36F with septic shock and acute on chronic kidney injury from UTI Plan: IVF resuscitation Nephro on board, will place HD cath if Nephro determines HD necessary. Abx Monitor sorenson output May need urology consult Monitor vitals Serial abd exams Analgesia PRN D/W Dr. Jose Manuel Mauricio PGY4 Objective - Vital Signs/Intake and Output Vital Signs (last 24 hours): Temp Pulse Resp BP Pulse Ox 100.8 F H 123 H 17 133/72 100 10/28/16 04:00 10/28/16 06:10 10/28/16 06:10 10/28/16 06:00 10/28/16 06:10 - Medications Medications: Current Medications Acetaminophen (Tylenol 325mg Tab) 650 mg PO Q6H PRN PRN Reason: Pain, moderate (4-7) Heparin Sodium (Porcine) (Heparin) 5,000 units SC Q8 [facility] PRN Reason: Protocol Last Admin: 10/28/16 06:02 Dose: 5,000 units Meropenem 250 mg/ Sodium (Chloride) 100 mls @ 100 mls/hr IVPB Q12H [facility] PRN Reason: Protocol Stop: 11/10/16 08:31 Last Admin: 10/27/16 20:12 Dose: 100 mls/hr Sodium Bicarbonate 150 meq/ (Dextrose) 1,150 mls @ 200 mls/hr IV .Q5H45M [facility] Last Admin: 10/27/16 10:44 Dose: 200 mls/hr Potassium Chloride (Potassium Chloride 10 Meq/100 Ml) 10 meq in 100 mls @ 100 mls/hr IVPB Q2H [facility] Stop: 10/28/16 10:59 Insulin Human Lispro (Humalog Med) 0 units SC ACHS [facility] PRN Reason: Protocol Last Admin: 10/27/16 21:40 Dose: Not Given Morphine Sulfate (Morphine) 1 mg IVP Q6H PRN PRN Reason: Pain, severe (8-10) Last Admin: 10/27/16 17:33 Dose: 1 mg Pantoprazole Sodium (Protonix Inj) 40 mg IVP Q12 [facility] Last Admin: 10/27/16 21:41 Dose: 40 mg - Labs Labs: 10/28/16 05:15 10/28/16 05:15 PT 13.3 Seconds (9.9-11.8) H 10/26/16 20:30 INR 1.23 (0.93-1.08) H 10/26/16 20:30 APTT 40.6 Seconds (23.7-30.8) H 10/26/16 20:30 - Constitutional Appears: Non-toxic - Head Exam Head Exam: NORMAL INSPECTION - Eye Exam Eye Exam: EOMI, Normal appearance - ENT Exam ENT Exam: Mucous Membranes Moist - Neck Exam Neck Exam: Full ROM Additional comments: R IJ in place. no erythema, drainage, induration, hematoma noted. - Respiratory Exam Respiratory Exam: Clear to Ausculation Bilateral, NORMAL BREATHING PATTERN. absent: Accessory Muscle Use, Respiratory Distress - Cardiovascular Exam Cardiovascular Exam: Tachycardia, REGULAR RHYTHM, +S1, +S2 - GI/Abdominal Exam GI & Abdominal Exam: Soft, Normal Bowel Sounds. absent: Tenderness, Rebound - Extremities Exam Extremities Exam: Full ROM, Normal Inspection. absent: Pedal Edema - Back Exam Back Exam: Full ROM, NORMAL INSPECTION - Neurological Exam Neurological Exam: Alert, Awake, Oriented x3 - Psychiatric Exam Psychiatric exam: Normal Affect, Normal Mood - Skin Skin Exam: Dry, Normal Color, Warm Assessment and Plan - Assessment and Plan (Free Text) Assessment: 36F with septic shock and acute on chronic kidney injury from UTI, R IJ insertion on 10/27/16 Plan: c/w IVF f/u Nephro recommendations on HD catheter placement if necessary c/w abx per medicine team/ID Strict I/Os, Monitor sorenson output Consider Urology Consult Monitor vitals Serial abd exams c/w wound management per ID, Podiatry, and wound care team c/w pain control PRN d/w Dr. Jose Manuel Landon, DO PGY1
--- NOTE | 2016-10-28 09:03 | US ---
HISTORY: Leg pain and swelling. Evaluate for DVT PHYSICIAN(S): Josemanuel Handy MD. TECHNIQUE: Duplex sonography and color-flow Doppler with graded compression were used to evaluate the deep venous systems of both lower extremities. FINDINGS: The visualized deep venous systems of both lower extremities are sonographically normal and compressible. Normal wave forms and augmentation are seen. There is no sonographic evidence for deep venous thrombosis in the visualized segments of both lower extremities. IMPRESSION: No sonographic evidence for deep venous thrombosis in the visualized segments of both lower extremities.
[2016-10-28] MEDS: Sodium Bicarbonate 8.4% 150 MEQ in Dextrose 5% In Water 1,000 ML IV SCH (09:08)
--- NOTE | 2016-10-28 13:36 | CP.PCM.PN ---
Subjective - Date & Time of Evaluation Date of Evaluation: 10/28/16 Time of Evaluation: 08:00 - Subjective Subjective: CRITICAL CARE PROGRESS NOTE Patient seen and examined, reports doing well. Denies fever, chills, cough, chest pain, sob, palpitations, QUISPE ,dizziness. underwent HD yesterday, tolerated well. Todays labs with improving Bicarb, Cr. Objective - Vital Signs/Intake and Output Vital Signs (last 24 hours): Temp Pulse Resp BP Pulse Ox 100.8 F H 105 H 17 133/72 100 10/28/16 04:00 10/28/16 10:00 10/28/16 06:10 10/28/16 06:00 10/28/16 06:10 - Medications Medications: Current Medications Acetaminophen (Tylenol 325mg Tab) 650 mg PO Q6H PRN PRN Reason: Pain, moderate (4-7) Heparin Sodium (Porcine) (Heparin) 5,000 units SC Q8 [facility] PRN Reason: Protocol Last Admin: 10/28/16 06:02 Dose: 5,000 units Meropenem 250 mg/ Sodium (Chloride) 100 mls @ 100 mls/hr IVPB Q12H [facility] PRN Reason: Protocol Stop: 11/10/16 08:31 Last Admin: 10/28/16 09:25 Dose: 100 mls/hr Insulin Human Lispro (Humalog Med) 0 units SC ACHS [facility] PRN Reason: Protocol Last Admin: 10/28/16 11:59 Dose: Not Given Morphine Sulfate (Morphine) 1 mg IVP Q6H PRN PRN Reason: Pain, severe (8-10) Last Admin: 10/27/16 17:33 Dose: 1 mg Pantoprazole Sodium (Protonix Inj) 40 mg IVP Q12 [facility] Last Admin: 10/28/16 10:30 Dose: 40 mg - Labs Labs: 10/28/16 05:15 10/28/16 05:15 PT 13.3 Seconds (9.9-11.8) H 10/26/16 20:30 INR 1.23 (0.93-1.08) H 10/26/16 20:30 APTT 40.6 Seconds (23.7-30.8) H 10/26/16 20:30 - Constitutional Appears: Well, Non-toxic, No Acute Distress - Head Exam Head Exam: NORMAL INSPECTION - ENT Exam ENT Exam: Mucous Membranes Moist - Neck Exam Additional comments: R HD catheter - Respiratory Exam Respiratory Exam: Clear to Ausculation Bilateral, NORMAL BREATHING PATTERN - Cardiovascular Exam Cardiovascular Exam: REGULAR RHYTHM, +S1, +S2 - GI/Abdominal Exam GI & Abdominal Exam: Soft, Normal Bowel Sounds - Extremities Exam Additional comments: Multiple sores, healing - Psychiatric Exam Psychiatric exam: Flat Affect Assessment and Plan - Assessment and Plan (Free Text) Assessment: 36 year old female with a past medical history significant for HTN, uncontrolled IDDM and RLE DVT who was admitted to the ICU for septic shock which has revolved, likely secondary to UTI/pyelonephritis, renal failure and metabolic acidosis. Currently afebrile, HD stable, SBP 120s, off pressors. On exam AAoX3, NAD, benign abd exam, Labs with improving, Cr, bicarb. Tolerated HD yesterday, renal following. Leukocytosis worsening, but HD stable, off pressors. No evidence of diarrhea while in hospital. LE duplex neg for DVT. Severe Sepsis UTI on Abx Renal Failure s/p HD Metabolic Acidosis Leukocytosis Recommend: - supp o2 as needed - broad spectrum abx, Merrem, Vanco IV - Folow up cultures, follow up ID - HD as per renal - repeat VBG - monitor HH - renal diet - FS control, Levemir, and sliding scale - DVT ppx - GI ppx
--- NOTE | 2016-10-28 13:57 | CP.PCM.PN ---
Subjective - Date & Time of Evaluation Date of Evaluation: 10/28/16 Time of Evaluation: 10:50 - Subjective Subjective: Comfortable in bed, less pain in the left leg and foot, no fevers overnight. Objective - Vital Signs/Intake and Output Vital Signs (last 24 hours): Temp Pulse Resp BP Pulse Ox 98.4 F 110 H 19 126/78 100 10/27/16 20:24 10/27/16 20:20 10/27/16 20:20 10/27/16 20:15 10/27/16 20:20 Intake and Output: 10/27/16 10/28/16 18:59 06:59 Intake Total 7150 Output Total 400 Balance 6750 - Medications Medications: Current Medications Acetaminophen (Tylenol 325mg Tab) 650 mg PO Q6H PRN PRN Reason: Pain, moderate (4-7) Heparin Sodium (Porcine) (Heparin) 5,000 units SC Q8 [facility] PRN Reason: Protocol Last Admin: 10/27/16 21:40 Dose: 5,000 units Meropenem 250 mg/ Sodium (Chloride) 100 mls @ 100 mls/hr IVPB Q12H [facility] PRN Reason: Protocol Stop: 11/10/16 08:31 Last Admin: 10/27/16 20:12 Dose: 100 mls/hr Sodium Bicarbonate 150 meq/ (Dextrose) 1,150 mls @ 200 mls/hr IV .Q5H45M [facility] Last Admin: 10/27/16 10:44 Dose: 200 mls/hr Insulin Human Lispro (Humalog Med) 0 units SC ACHS [facility] PRN Reason: Protocol Last Admin: 10/27/16 21:40 Dose: Not Given Morphine Sulfate (Morphine) 1 mg IVP Q6H PRN PRN Reason: Pain, severe (8-10) Last Admin: 10/27/16 17:33 Dose: 1 mg Pantoprazole Sodium (Protonix Inj) 40 mg IVP Q12 [facility] Last Admin: 10/27/16 21:41 Dose: 40 mg - Labs Labs: 10/27/16 15:10 10/27/16 05:30 PT 13.3 Seconds (9.9-11.8) H 10/26/16 20:30 INR 1.23 (0.93-1.08) H 10/26/16 20:30 APTT 40.6 Seconds (23.7-30.8) H 10/26/16 20:30 - Constitutional Appears: Non-toxic, No Acute Distress - Head Exam Head Exam: NORMAL INSPECTION - ENT Exam ENT Exam: Mucous Membranes Moist - Neck Exam Neck Exam: absent: Lymphadenopathy, Meningismus - Respiratory Exam Respiratory Exam: Decreased Breath Sounds - Cardiovascular Exam Cardiovascular Exam: +S1, +S2 - GI/Abdominal Exam GI & Abdominal Exam: Soft. absent: Tenderness - Extremities Exam Additional comments: left foot with dry dressings in place Assessment and Plan - Assessment and Plan (Free Text) Plan: Assessment Severe sepsis with acute renal failure due to acute pyelonephritis, now growing gram positive cocci in the urine left foot wounds with Corynebacterium (probably contamination) DM with diabetic neuropathy HTN history of right DVT bilateral foot ulcers Plan continue Merrem day 2 and will give a dose of IV Daptomycin pending final blood and urine cx results will monitor clinically
[2016-10-28] MEDS ORDERED: DAPTOmycin 500 mg Inj (Cubicin) IV SCH (14:00)
--- NOTE | 2016-10-28 16:16 | CP.PCM.PN ---
<JOSE LUIS DONOVAN - Last Filed: 10/28/16 16:11> Subjective - Date & Time of Evaluation Date of Evaluation: 10/28/16 Time of Evaluation: 07:15 - Subjective Subjective: patient was seen and examined bedside. she states that she is feeling much better, and denies fevers, chills, or pain upon urination, cp, sob. Objective - Vital Signs/Intake and Output Vital Signs (last 24 hours): Temp Pulse Resp BP Pulse Ox 99.1 F 94 H 21 123/60 99 10/28/16 12:00 10/28/16 14:45 10/28/16 14:45 10/28/16 14:45 10/28/16 14:45 - Medications Medications: Current Medications Acetaminophen (Tylenol 325mg Tab) 650 mg PO Q6H PRN PRN Reason: Pain, moderate (4-7) Heparin Sodium (Porcine) (Heparin) 5,000 units SC Q8 [facility] PRN Reason: Protocol Last Admin: 10/28/16 06:02 Dose: 5,000 units Meropenem 250 mg/ Sodium (Chloride) 100 mls @ 100 mls/hr IVPB Q12H [facility] PRN Reason: Protocol Stop: 11/10/16 08:31 Last Admin: 10/28/16 09:25 Dose: 100 mls/hr Daptomycin 320 mg/ Sodium (Chloride) 100 mls @ 100 mls/hr IV Q24H [facility] Stop: 11/02/16 14:16 Insulin Detemir (Levemir) 30 unit SC HS [facility] Insulin Human Lispro (Humalog Med) 0 units SC ACHS [facility] PRN Reason: Protocol Last Admin: 10/28/16 11:59 Dose: Not Given Metoclopramide HCl (Reglan) 10 mg IVP ACHS [facility] Morphine Sulfate (Morphine) 1 mg IVP Q6H PRN PRN Reason: Pain, severe (8-10) Last Admin: 10/27/16 17:33 Dose: 1 mg Pantoprazole Sodium (Protonix Inj) 40 mg IVP Q12 [facility] Last Admin: 10/28/16 10:30 Dose: 40 mg - Labs Labs: 10/28/16 05:15 10/28/16 05:15 PT 13.3 Seconds (9.9-11.8) H 10/26/16 20:30 INR 1.23 (0.93-1.08) H 10/26/16 20:30 APTT 40.6 Seconds (23.7-30.8) H 10/26/16 20:30 - Additional Findings Additional findings: - Constitutional Appears: Not in Acute Distress, Unkempt, Older Than Stated Age - Head Exam Head Exam: ATRAUMATIC, NORMAL INSPECTION, NORMOCEPHALIC - Eye Exam Eye Exam: EOMI, Normal appearance, PERRL Pupil Exam: NORMAL ACCOMODATION - ENT Exam ENT Exam: Mucous Membranes Dry Additional comments: missing teeth poor dentition - Neck Exam Neck Exam: Normal Inspection - Respiratory Exam Respiratory Exam: Clear to Ausculation Bilateral, NORMAL BREATHING PATTERN. absent: Wheezes, Respiratory Distress - Cardiovascular Exam Cardiovascular Exam: RRR, +S1, +S2. absent: Murmur - GI/Abdominal Exam GI & Abdominal Exam: Soft, Normal Bowel Sounds. absent: Guarding, Tenderness, Organomegaly - Back Exam Back Exam: absent: CVA tenderness (L), CVA tenderness (R) - Neurological Exam Neurological Exam: Alert, Awake, Oriented x3 - Psychiatric Exam Psychiatric exam: Normal Mood - Skin Additional comments: L ankle wrapped in clean dressing linear ulcer (mucosal) along lateral LLE L foot w/ 2 toe amputations - Additional Findings Additional findings: sorenson in place HD catheter in place (RIJ) Assessment and Plan - Assessment and Plan (Free Text) Assessment: 36yo F PMH DM, HTN, HLD, RLE dvt and LLE ulcer who presents w/ Septic shock 2/2 pyelonephritis 2/2 untreated UTI. EMMETT present, likely needing dialysis. Metabolic acidosis w/ high AG also present, but improving, requiring dialysis. Also found to be anemic, likely due to chronic disease (diabetes) vs hemorrhage vs iron deficiency. Plan: 1. Septic Shock likely 2/2 pyelo vs untreated UTI - pt clinically improving, shock has resolved off pressors - Sepsis criteria still met - currently on Merrem (d2) and Daptomycin (d1) - ID consulted, recs appreciated - Ucx growing G+ cocci - Bcx negative so far - f/u MRSA screen - procal 0.66 - afebrile, and leukocytosis worsened - continue to monitor - pain mgmt: morphine 1q6 PRN - Reglan ACHS for n/v 2. EMMETT on CKD vs worsening CKD - Cr currently 6.2, improved w/ hydration and w/o dialysis - Nephrology consulted, recs appreciated - RIJ in place in case of need to dialyze 3. LLE ulcer - wound care - culture grew corynebacterium - f/u sensitivities - podiatry consulted, recs appreciated 4. Metabolic acidosis w/ high AG likely 2/2 uremia - f/u ABG or VBG - continue to monitor for resp distress or worsening renal fxn - considering dialysis w/ nephro 5. Anemia likely 2/2 chronic dz - microcytic hypochromic anemia - TIBC low, Fe normal - peripheral smear observed, showing microcytic hypochromic anemia w/ no schistocytes - likely due to chronic kidney 2/2 DM2 - retic count 2.4 6. Hypokalemia - repleted - f/u bmp 7. Hx DM - NPO diet - ISS low - A1C 8.4 8. Hx HTN - currently hypotensive - bp meds held 9. Hx HLD - lipid panel ordered [facility] Heparin/PTX Patient was seen, evaluated and discussed with attending, Dr. Keith Donovan PGY1 <Agustin Parker - Last Filed: 10/28/16 17:22> Objective - Vital Signs/Intake and Output Vital Signs (last 24 hours): Temp Pulse Resp BP Pulse Ox 99.1 F 94 H 21 123/60 99 10/28/16 12:00 10/28/16 14:45 10/28/16 14:45 10/28/16 14:45 10/28/16 14:45 - Medications Medications: Current Medications Acetaminophen (Tylenol 325mg Tab) 650 mg PO Q6H PRN PRN Reason: Pain, moderate (4-7) Heparin Sodium (Porcine) (Heparin) 5,000 units SC Q8 [facility] PRN Reason: Protocol Last Admin: 10/28/16 06:02 Dose: 5,000 units Meropenem 250 mg/ Sodium (Chloride) 100 mls @ 100 mls/hr IVPB Q12H [facility] PRN Reason: Protocol Stop: 11/10/16 08:31 Last Admin: 10/28/16 09:25 Dose: 100 mls/hr Daptomycin 320 mg/ Sodium (Chloride) 100 mls @ 100 mls/hr IV Q24H [facility] Stop: 11/02/16 14:16 Insulin Detemir (Levemir) 30 unit SC HS [facility] Insulin Human Lispro (Humalog Med) 0 units SC ACHS [facility] PRN Reason: Protocol Last Admin: 10/28/16 11:59 Dose: Not Given Metoclopramide HCl (Reglan) 10 mg IVP ACHS [facility] Morphine Sulfate (Morphine) 1 mg IVP Q6H PRN PRN Reason: Pain, severe (8-10) Last Admin: 10/27/16 17:33 Dose: 1 mg Oxychlorosene Sodium (Clorpactin Wcs-90) 2 gm TOP DAILY [facility] Pantoprazole Sodium (Protonix Inj) 40 mg IVP Q12 [facility] Last Admin: 10/28/16 10:30 Dose: 40 mg - Labs Labs: 10/28/16 05:15 10/28/16 05:15 PT 13.3 Seconds (9.9-11.8) H 10/26/16 20:30 INR 1.23 (0.93-1.08) H 10/26/16 20:30 APTT 40.6 Seconds (23.7-30.8) H 10/26/16 20:30 Attending/Attestation - Attestation I have personally seen and examined this patient.: Yes I have fully participated in the care of the patient.: Yes I have reviewed all pertinent clinical information, including history, physical exam and plan: Yes Notes (Text): I have seen and examined the patient at bedside. Agree with the above note with the following additions/ exceptions: Briefly this is 36 year old female with history of IDDM, HTN, dyslipidemia, RLE DVT, wheel chair bound, 2 amputated toes of left leg and chronic LE ulcer who presented with severe sepsis secondary to acute pyelonephritis, Acute on chronic kidney disease, AGMA, electrolyte abnormalities, anemia and hypotension. BP has improved and she is now off pressors. She is afebrile and states that her flank pain has now gotten better. Urine culture is growing GPC. Left foot wound culture is growing corynebacterium which is probably contamination. She tolerated HD yesterday and was given 1 unit of prbc. LE duplex negative for DVT. She is on meropenem and dapto was added today. Podiatry consult requested. Discussed with mechanical service specialist and ID. Upon discharge patient will follow up with Dr Bunch. Dr Agustin Parker
--- NOTE | 2016-10-28 21:41 | CP.PCM.PN ---
Subjective - Date & Time of Evaluation Date of Evaluation: 10/28/16 Time of Evaluation: 11:00 - Subjective Subjective: Lethargic this morning per nursing staff; not complaining of flank pain; Objective - Vital Signs/Intake and Output Vital Signs (last 24 hours): Temp Pulse Resp BP Pulse Ox 99.1 F 96 H 21 144/72 99 10/28/16 12:00 10/28/16 19:50 10/28/16 19:50 10/28/16 19:00 10/28/16 19:50 Intake and Output: 10/28/16 10/29/16 18:59 06:59 Intake Total 520 Output Total 300 Balance 220 - Medications Medications: Current Medications Acetaminophen (Tylenol 325mg Tab) 650 mg PO Q6H PRN PRN Reason: Pain, moderate (4-7) Heparin Sodium (Porcine) (Heparin) 5,000 units SC Q8 [facility] PRN Reason: Protocol Last Admin: 10/28/16 21:19 Dose: 5,000 units Meropenem 250 mg/ Sodium (Chloride) 100 mls @ 100 mls/hr IVPB Q12H [facility] PRN Reason: Protocol Stop: 11/10/16 08:31 Last Admin: 10/28/16 20:30 Dose: 100 mls/hr Daptomycin 320 mg/ Sodium (Chloride) 100 mls @ 100 mls/hr IV Q24H [facility] Stop: 11/02/16 14:16 Last Admin: 10/28/16 17:40 Dose: 100 mls/hr Insulin Detemir (Levemir) 30 unit SC HS [facility] Last Admin: 10/28/16 21:20 Dose: 30 unit Insulin Human Lispro (Humalog Med) 0 units SC ACHS [facility] PRN Reason: Protocol Last Admin: 10/28/16 21:19 Dose: Not Given Metoclopramide HCl (Reglan) 10 mg IVP ACHS [facility] Last Admin: 10/28/16 21:23 Dose: 10 mg Morphine Sulfate (Morphine) 1 mg IVP Q6H PRN PRN Reason: Pain, severe (8-10) Last Admin: 10/27/16 17:33 Dose: 1 mg Oxychlorosene Sodium (Clorpactin Wcs-90) 2 gm TOP DAILY [facility] Pantoprazole Sodium (Protonix Inj) 40 mg IVP Q12 [facility] Last Admin: 10/28/16 21:23 Dose: 40 mg - Labs Labs: 10/28/16 05:15 10/28/16 05:15 PT 13.3 Seconds (9.9-11.8) H 10/26/16 20:30 INR 1.23 (0.93-1.08) H 10/26/16 20:30 APTT 40.6 Seconds (23.7-30.8) H 10/26/16 20:30 Assessment and Plan (1) Acute renal failure Assessment & Plan: Consistent with ATN in setting of sepsis and hypotension; oliguric renal failure ; 2nd HD today, no UF; 3rd session tomorrow, full blood flow, 1L UF; Status: Acute (2) CKD (chronic kidney disease) Assessment & Plan: Likely due to DM nephropathy; awaiting spot Ur prot/creat; Status: Acute (3) Anemia Status: Acute (4) Metabolic acidosis Assessment & Plan: Much improved; bicarb drip stopped; monitor; Status: Acute (5) Sepsis Assessment & Plan: started on dapto q24h and meropenem 250 q12h; should consider changing dapto to 3 times per week for HD (unless renal function improves); Status: Acute
[2016-10-28] MEDS ORDERED: Insulin Detemir 100 units/ml Vial (Levemir) SC SCH (22:00)
[2016-10-29] MEDS ORDERED: Dextrose 50% SYRINGE Inj (50 ml) ONE (00:45)
[2016-10-29] MEDS ORDERED: Dextrose 50% SYRINGE Inj (50 ml) IVP ONE ×4 (00:47→08:17)
--- NOTE | 2016-10-29 01:35 | CON ---
DATE: 10/28/2016 HISTORY OF PRESENT ILLNESS: This is a 36-year-old female seen in the ICU unit for diabetic foot ulcer. The patient states that she has had this ulceration for sometime and she has a vacuum cleaner repairer who she sees weekly and a room care nurse who comes to the house to care of this ulceration. She states they have been putting Santyl on the wound on a daily basis. The patient presented to the ED here at [facility] yesterday with complaints of abdominal pain with radiation to her flank. She has also complained of nausea, vomiting. She complaints of fever and chills, and she states that she was very fatigued. The patient had also complained of sinus and facial pressure. PAST MEDICAL HISTORY: Positive for diabetes type 1, hypertension, anemia and a right leg DVT in the past. PAST SURGICAL HISTORY: Positive for right leg vascular surgery and a . FAMILY HISTORY: Noncontributory. SOCIAL HISTORY: The patient does not smoke, use drugs or alcohol and the patient is wheelchair bound. ALLERGIES: THE PATIENT HAS A DRUG ALLERGY TO VANCOMYCIN. MEDICATION: The patient is taking Levemir 18 units at home, Protonix and ferrous sulfate. REVIEW OF SYSTEMS: She denies history of infectious disease. She states that she does not smoke. She denies cardiac disorder. She denies respiratory disorders. She states that she does have neuropathy to her lower extremities. The patient states she does not have any kidney disease and she does have diabetes. PHYSICAL EXAMINATION VITAL SIGNS: Noted. She has a pulse of 94 and respiration of 21 and oxygen sat was 99. LABORATORY DATA: Reviewed. Her white blood cell count is 27.5, her H and H is 7.1 and 20.4, platelets are 308 and the rest of the CBC is all abnormal. Her ESR is at 146. Coagulation shows an INR of 1.2. Chemistry shows BUN and creatinine of 97 and 6.2. According to some of the reports I read, this is an acute renal failure secondary to the sepsis. The patient has a random glucose of 126. The patient's microbiology, blood cultures were none after 24 hours. Urine was Gram-positive and the foot grew Corynebacterium species. The patient's lower extremities were reviewed. She has 2/4 palpable pedal pulses. Her temperature gradient is within normal limits bilateral. Both feet are insensate to touch and deep feeling. The patient has an ulceration on her left medial heel measuring approximately 3 x 3 cm with yellow-green purulent emanating from the wound. She also has a wound distal to this at the medial plantar fascia area. This wound measures approximately 0.6 x 0.5 cm; however, it has a sinus track that is contiguous from this wound right into the heel wound and by exploring the sinus, there is more pus emanating from both of these wounds. It is the same yellow-green pus. There is also a necrotic wound at the point of the heel, also contiguous with all of these wounds. This wound does go down to bone. Thus, she has a clinical osteomyelitis. The tissue in all the wound is necrotic and fibrous slough and there is redness, but no ascending cellulitis coming from the area and the tissue is malodorous. ASSESSMENT: Abscess, most likely osteomyelitis to the right heel with Landa's III ulceration. PLAN OF TREATMENT: The ulcers were cleaned at bedside using a sterile suture removal care to devitalize a necrotic tissue. The abscess was released as much as possible as could be at bedside. We got approximately 20 mL of pus on that wound. The wound was then cleansed and flushed with saline and packed open with 0.25 inch Xeroform packing and then the wound was dressed with a dry sterile dressing. The patient has heel pads, but she states that she does not want to wear them. The patient also stated that she does not want any debridements done that she wants to go back to see her vacuum cleaner repairer who has been taking care of this wound at [facility]. I tried to explain to the patient that she has an abscess and again, she reiterated that she did not want any treatment done until she saw her vacuum cleaner repairer. In the meantime, culture and sensitivities were taken from the deep sinuses and the patient will be seen in followup. Rina Lazar DPM
[2016-10-29 05:35] LABS: CREATININE, RANDOM URINE 22 mg/dL (20-320)
[2016-10-29 07:13] LABS: BASO # 0.02 K/mm3 (0.0-2.0); BASO % 0.1 % (0.0-3.0); EOS # 0.2 (0.0-0.7); EOS % 0.9 % (1.5-5.0); GRAN # 24.77 (1.4-6.5); GRAN % 92.2 % (50.0-68.0); LYMPH # 0.4 (1.2-3.4); LYMPH % 1.6 % (22.0-35.0); MEAN CELL VOLUME 78.8 fl (80.0-105.0); MEAN CORPUSCULAR HEMOGLOBIN 27.4 pg (25.0-35.0); MEAN CORPUSCULAR HGB CONC 34.7 g/dl (31.0-37.0); MEAN PLATELET VOLUME 8.3 fl (7.0-11.0); MONO # 1.4 (0.1-0.6); MONO % 5.2 % (1.0-6.0); RED CELL DISTRIBUTION WIDTH 15.6 % (11.5-14.5)
[2016-10-29 07:26] LABS: WHITE BLOOD COUNT 26.9 10^3/ul (4.5-11.0)
[2016-10-29 07:37] LABS: ALB/GLOB RATIO 0.6 (1.1-1.8); BILIRUBIN,TOTAL 1.2 mg/dL (0.2-1.3); CALCIUM 7.8 mg/dL (8.4-10.5); MAGNESIUM 1.6 mg/dL (1.7-2.2); PHOSPHOROUS 4.2 mg/dL (2.5-4.5)
[2016-10-29] MEDS ORDERED: Potassium Chloride 20 mEq ER Tab PO ONE (08:04)
[2016-10-29] MEDS ORDERED: Magnesium Sulfate 2 GM in Sodium Chloride 0.9% 100 ML IV ONE (08:06)
[2016-10-29] MEDS: Insulin Lispro (humaLOG) MEDIUM Coverage SC SCH ×4 (08:24→22:00)
--- NOTE | 2016-10-29 10:52 | CP.PCM.PN ---
<Porfirio Espitia - Last Filed: 10/29/16 14:02> Subjective - Date & Time of Evaluation Date of Evaluation: 10/29/16 Time of Evaluation: 10:51 - Subjective Subjective: PGY-[address] Preston's Nephrology Service: Patient seen and examined at bedside. Patient reports flank pain has improved greatly since admission. She reports improved urine output. She denies pain in left foot at this time. She further denies fever, chills, chest pain, shortness of breath, or abdominal pain. Objective - Vital Signs/Intake and Output Vital Signs (last 24 hours): Temp Pulse Resp BP Pulse Ox 98.8 F 94 H 20 126/81 100 10/29/16 06:01 10/29/16 06:01 10/29/16 06:01 10/29/16 06:01 10/29/16 06:01 - Medications Medications: Current Medications Acetaminophen (Tylenol 325mg Tab) 650 mg PO Q6H PRN PRN Reason: Pain, moderate (4-7) Heparin Sodium (Porcine) (Heparin) 5,000 units SC Q8 [facility] PRN Reason: Protocol Last Admin: 10/29/16 06:43 Dose: 5,000 units Meropenem 250 mg/ Sodium (Chloride) 100 mls @ 100 mls/hr IVPB Q12H [facility] PRN Reason: Protocol Stop: 11/10/16 08:31 Last Admin: 10/29/16 10:48 Dose: 100 mls/hr Potassium Chloride (Potassium Chloride 10 Meq/100 Ml) 10 meq in 100 mls @ 100 mls/hr IVPB Q2H [facility] Stop: 10/29/16 11:14 Last Admin: 10/29/16 08:35 Dose: 100 mls/hr Daptomycin 320 mg/ Sodium (Chloride) 100 mls @ 100 mls/hr IV QOTHERDAY [facility] PRN Reason: Protocol Stop: 11/04/16 10:01 Dextrose (Dextrose 10% In Water) 500 mls @ 20 mls/hr IV .Q24H [facility] Last Admin: 10/29/16 10:48 Dose: 20 mls/hr Insulin Human Lispro (Humalog Med) 0 units SC ACHS [facility] PRN Reason: Protocol Last Admin: 10/29/16 08:24 Dose: Not Given Metoclopramide HCl (Reglan) 10 mg IVP ACHS [facility] Last Admin: 10/29/16 07:30 Dose: Not Given Morphine Sulfate (Morphine) 1 mg IVP Q6H PRN PRN Reason: Pain, severe (8-10) Last Admin: 10/27/16 17:33 Dose: 1 mg Oxychlorosene Sodium (Clorpactin Wcs-90) 2 gm TOP DAILY [facility] Pantoprazole Sodium (Protonix Inj) 40 mg IVP Q12 [facility] Last Admin: 10/29/16 10:47 Dose: 40 mg - Labs Labs: 10/29/16 07:07 10/29/16 07:07 PT 13.3 Seconds (9.9-11.8) H 10/26/16 20:30 INR 1.23 (0.93-1.08) H 10/26/16 20:30 APTT 40.6 Seconds (23.7-30.8) H 10/26/16 20:30 - Constitutional Appears: No Acute Distress, Chronically Ill - Head Exam Head Exam: ATRAUMATIC, NORMAL INSPECTION, NORMOCEPHALIC - Eye Exam Eye Exam: EOMI, PERRL - ENT Exam ENT Exam: Mucous Membranes Dry - Neck Exam Neck Exam: Normal Inspection - Respiratory Exam Respiratory Exam: Clear to Ausculation Bilateral, NORMAL BREATHING PATTERN - Cardiovascular Exam Cardiovascular Exam: REGULAR RHYTHM, +S1, +S2 - GI/Abdominal Exam GI & Abdominal Exam: Soft, Normal Bowel Sounds. absent: Tenderness - Extremities Exam Extremities Exam: absent: Normal Inspection, Pedal Edema, Tenderness - Back Exam Back Exam: absent: CVA tenderness (L), CVA tenderness (R) - Neurological Exam Neurological Exam: Alert, Awake, Oriented x3 - Psychiatric Exam Psychiatric exam: Normal Affect, Normal Mood - Skin Additional comments: HD catheter in place Left foot wound dressed; c/d/i Assessment and Plan - Assessment and Plan (Free Text) Plan: (1) Acute renal failure Assessment & Plan: Consistent with ATN in setting of sepsis and hypotension; oliguric renal failure No dialysis necessary today -Asked nursing to continue strict I/Os despite sorenson removal Status: Acute (2) CKD (chronic kidney disease) Assessment & Plan: Likely due to DM nephropathy; awaiting spot Ur prot/creat; Status: Acute (3) Proteinuria Urine random total protein: 98234 Microalbumin: >190 (4) Anemia Baseline hemoglobin 8 - 6.6 on AM labs - 2 units to be transfused today Status: Acute (5) Metabolic acidosis Assessment & Plan: Much improved; bicarb drip stopped; monitor; Status: Acute (6) Sepsis Assessment & Plan: Afebrile, tachy, WBC elevated Daptomycin 320mg QOD q24h and meropenem 250mg q12h (unless renal function improves); Status: Acute (7) Hepatitis C Antibody reactive Management per primary Discussed with Dr. Mohan Espitia PGY-1 <Mick Preston - Last Filed: 10/30/16 08:07> Objective - Vital Signs/Intake and Output Vital Signs (last 24 hours): Temp Pulse Resp BP Pulse Ox 99.4 F 119 H 22 147/103 H 96 10/30/16 06:00 10/30/16 06:00 10/30/16 06:00 10/30/16 06:00 10/30/16 06:00 Intake and Output: 10/30/16 10/30/16 06:59 18:59 Intake Total 784 Output Total 300 Balance 484 - Medications Medications: Current Medications Acetaminophen (Tylenol 325mg Tab) 650 mg PO Q6H PRN PRN Reason: Pain, moderate (4-7) Heparin Sodium (Porcine) (Heparin) 5,000 units SC Q12 [facility] PRN Reason: Protocol Last Admin: 10/29/16 22:36 Dose: 5,000 units Meropenem 250 mg/ Sodium (Chloride) 100 mls @ 100 mls/hr IVPB Q12H [facility] PRN Reason: Protocol Stop: 11/10/16 08:31 Last Admin: 10/29/16 22:34 Dose: 100 mls/hr Daptomycin 320 mg/ Sodium (Chloride) 100 mls @ 100 mls/hr IV QOTHERDAY [facility] PRN Reason: Protocol Stop: 11/04/16 10:01 Insulin Human Lispro (Humalog Med) 0 units SC ACHS [facility] PRN Reason: Protocol Last Admin: 10/29/16 22:00 Dose: Not Given Metoclopramide HCl (Reglan) 10 mg IVP ACHS [facility] Last Admin: 10/29/16 22:00 Dose: Not Given Morphine Sulfate (Morphine) 1 mg IVP Q6H PRN PRN Reason: Pain, severe (8-10) Last Admin: 10/27/16 17:33 Dose: 1 mg Oxychlorosene Sodium (Clorpactin Wcs-90) 2 gm TOP DAILY [facility] Last Admin: 10/29/16 12:24 Dose: Not Given Pantoprazole Sodium (Protonix Inj) 40 mg IVP Q12 [facility] Last Admin: 10/29/16 22:36 Dose: 40 mg - Labs Labs: 10/30/16 05:40 10/30/16 05:40 PT 13.3 Seconds (9.9-11.8) H 10/26/16 20:30 INR 1.23 (0.93-1.08) H 10/26/16 20:30 APTT 40.6 Seconds (23.7-30.8) H 10/26/16 20:30 Assessment and Plan (1) Acute renal failure Status: Acute (2) CKD (chronic kidney disease) Status: Acute (3) Anemia Status: Acute (4) Metabolic acidosis Status: Acute (5) Sepsis Status: Acute Attending/Attestation - Attestation I have personally seen and examined this patient.: Yes I have fully participated in the care of the patient.: Yes I have reviewed all pertinent clinical information, including history, physical exam and plan: Yes Notes (Text): Patient seen and examined; I agree with the resident's note as above with the following additions/edits: Patient with longstanding DM, chronically ill with L foot ulcers and debilitated (non-ambulatory since several months), admitted with sepsis, hypotension, severe metabolic acidosis and oliguric acute renal failure; EMMETT on CKD; dialyzed acutely the last 2 days; were planning on 3rd HD today but held off due to possibility of improving renal function; unable to fully assess as patient no longer has sorenson to accurately document I/O; otherwise stable electrolyte and volume status; will assess tomorrow for need for HD; Exact baseline creat unclear but was in 3's last month;Advanced CKD indicated by massive proteinuria (~30 g/g by Ur Prot/Creat ratio), likely due to diabetic nephropathy; indicates poor renal prognosis; Blood pressure elevated but no signs of volume overload on exam; On dapto, agree with every other day dosing for CrCl < 10;
--- NOTE | 2016-10-29 11:45 | CP.PCM.PN ---
Addendum entered and electronically signed by Gagandeep Lam MD 10/29 14:28: Discussed with patient that she needs to have Podiatry see her in-house but patient continues to refuse despite numerous discussions today and yesterday. Original Note: Subjective - Date & Time of Evaluation Date of Evaluation: 10/29/16 Time of Evaluation: 10:20 - Subjective Subjective: Less pain in the left foot, no fevers overnight, no nausea or vomiting, no diarrhea, no muscle aches, no dysuria. Objective - Vital Signs/Intake and Output Vital Signs (last 24 hours): Temp Pulse Resp BP Pulse Ox 98.8 F 94 H 20 126/81 100 10/29/16 06:01 10/29/16 06:01 10/29/16 06:01 10/29/16 06:01 10/29/16 06:01 - Medications Medications: Current Medications Acetaminophen (Tylenol 325mg Tab) 650 mg PO Q6H PRN PRN Reason: Pain, moderate (4-7) Heparin Sodium (Porcine) (Heparin) 5,000 units SC Q8 [facility] PRN Reason: Protocol Last Admin: 10/29/16 06:43 Dose: 5,000 units Meropenem 250 mg/ Sodium (Chloride) 100 mls @ 100 mls/hr IVPB Q12H [facility] PRN Reason: Protocol Stop: 11/10/16 08:31 Last Admin: 10/28/16 20:30 Dose: 100 mls/hr Potassium Chloride (Potassium Chloride 10 Meq/100 Ml) 10 meq in 100 mls @ 100 mls/hr IVPB Q2H [facility] Stop: 10/29/16 11:14 Magnesium Sulfate 2 gm/ Sodium (Chloride) 104 mls @ 102 mls/hr IV ONCE ONE Stop: 10/29/16 09:07 Daptomycin 320 mg/ Sodium (Chloride) 100 mls @ 100 mls/hr IV QOTHERDAY [facility] PRN Reason: Protocol Stop: 11/04/16 10:01 Insulin Detemir (Levemir) 30 unit SC [facility] Last Admin: 10/28/16 21:20 Dose: 30 unit Insulin Human Lispro (Humalog Med) 0 units SC [facility] PRN Reason: Protocol Last Admin: 10/29/16 08:24 Dose: Not Given Metoclopramide HCl (Reglan) 10 mg IVP ACHS [facility] Last Admin: 10/28/16 21:23 Dose: 10 mg Morphine Sulfate (Morphine) 1 mg IVP Q6H PRN PRN Reason: Pain, severe (8-10) Last Admin: 10/27/16 17:33 Dose: 1 mg Oxychlorosene Sodium (Clorpactin Wcs-90) 2 gm TOP DAILY [facility] Pantoprazole Sodium (Protonix Inj) 40 mg IVP Q12 [facility] Last Admin: 10/28/16 21:23 Dose: 40 mg - Labs Labs: 10/29/16 07:07 10/29/16 07:07 PT 13.3 Seconds (9.9-11.8) H 10/26/16 20:30 INR 1.23 (0.93-1.08) H 10/26/16 20:30 APTT 40.6 Seconds (23.7-30.8) H 10/26/16 20:30 - Constitutional Appears: Non-toxic, No Acute Distress - Head Exam Head Exam: NORMAL INSPECTION - ENT Exam ENT Exam: Mucous Membranes Moist - Neck Exam Neck Exam: absent: Meningismus - Respiratory Exam Respiratory Exam: Decreased Breath Sounds - Cardiovascular Exam Cardiovascular Exam: +S1, +S2 - GI/Abdominal Exam GI & Abdominal Exam: Soft. absent: Tenderness - Extremities Exam Additional comments: left foot with dry dressings in place - Back Exam Back Exam: absent: CVA tenderness (L), CVA tenderness (R) Assessment and Plan - Assessment and Plan (Free Text) Plan: Assessment Severe sepsis with acute renal failure due to acute pyelonephritis, now growing gram positive cocci in the urine left foot wound infection with MRSA and Corynebacterium DM with diabetic neuropathy HTN history of right DVT bilateral foot ulcers Plan continue Merrem day 3 and will continue renally-adjusted IV Daptomycin pending urine cx results (showing gram positive cocci); wound cx showing MRSA and Corynebacterium follow up further plans of Podiatry will continue to monitor clinically
[2016-10-29] MEDS: Magnesium Oxide 400 mg Tab UD PO SCH ×2 (12:11→19:48)
[2016-10-29] MEDS: Oxychlorosene Topical 2 gm Packet TOP SCH (12:24)
--- NOTE | 2016-10-29 17:30 | CP.PCM.PN ---
Addendum entered and electronically signed by Eli Weber DO 10/30/16 07:45 : Contacted Dr Lyons's office ( patient's private crowd controller) and left a message , awaiting for a call back. Original Note: <JOSE LUIS DONOVAN - Last Filed: 10/29/16 17:19> Subjective - Date & Time of Evaluation Date of Evaluation: 10/29/16 Time of Evaluation: 09:30 - Subjective Subjective: patient was seen and examined at bedside. the mother was also in the room. the patient states that she is feeling much better and has no complaints. the back pain has resolved and she denies dysuria, hematuria, numbness or tingling in her legs, fevers, chills, cp, sob, cough. the mother states that the pt is fine and doesn't need any help. the patient is at first refusing podiatry care but then says that they can work on it. she states that she has a private crowd controller who is also a surgeon who works on the leg and tells her that her leg is fine and just needs some cleaning. when asked, the pt states that she usually doesn't take her insulin at home and she says she measures it at home and it is usually 150-250. Objective - Vital Signs/Intake and Output Vital Signs (last 24 hours): Temp Pulse Resp BP Pulse Ox 99.0 F 102 H 18 129/86 100 10/29/16 16:36 10/29/16 16:36 10/29/16 16:36 10/29/16 16:36 10/29/16 06:01 Intake and Output: 10/29/16 10/29/16 06:59 18:59 Intake Total 0 Balance 0 - Medications Medications: Current Medications Acetaminophen (Tylenol 325mg Tab) 650 mg PO Q6H PRN PRN Reason: Pain, moderate (4-7) Heparin Sodium (Porcine) (Heparin) 5,000 units SC Q12 JERRICA PRN Reason: Protocol Meropenem 250 mg/ Sodium (Chloride) 100 mls @ 100 mls/hr IVPB Q12H JERRICA PRN Reason: Protocol Stop: 11/10/16 08:31 Last Admin: 10/29/16 10:48 Dose: 100 mls/hr Daptomycin 320 mg/ Sodium (Chloride) 100 mls @ 100 mls/hr IV QOTHERDAY JERRICA PRN Reason: Protocol Stop: 11/04/16 10:01 Dextrose (Dextrose 10% In Water) 500 mls @ 20 mls/hr IV .Q24H [facility] Last Admin: 10/29/16 10:48 Dose: 20 mls/hr Insulin Human Lispro (Humalog Med) 0 units SC ACHS JERRICA PRN Reason: Protocol Last Admin: 10/29/16 16:33 Dose: Not Given Magnesium Oxide (Mag-Ox) 400 mg PO BID JERRICA PRN Reason: Protocol Stop: 10/29/16 18:01 Last Admin: 10/29/16 12:11 Dose: 400 mg Metoclopramide HCl (Reglan) 10 mg IVP ACHS [facility] Last Admin: 10/29/16 16:34 Dose: Not Given Morphine Sulfate (Morphine) 1 mg IVP Q6H PRN PRN Reason: Pain, severe (8-10) Last Admin: 10/27/16 17:33 Dose: 1 mg Oxychlorosene Sodium (Clorpactin Wcs-90) 2 gm TOP DAILY [facility] Last Admin: 10/29/16 12:24 Dose: Not Given Pantoprazole Sodium (Protonix Inj) 40 mg IVP Q12 [facility] Last Admin: 10/29/16 10:47 Dose: 40 mg - Labs Labs: 10/29/16 07:07 10/29/16 07:07 PT 13.3 Seconds (9.9-11.8) H 10/26/16 20:30 INR 1.23 (0.93-1.08) H 10/26/16 20:30 APTT 40.6 Seconds (23.7-30.8) H 10/26/16 20:30 - Additional Findings Additional findings: - Constitutional Appears: Not in Acute Distress, Unkempt, Older Than Stated Age - Head Exam Head Exam: ATRAUMATIC, NORMAL INSPECTION, NORMOCEPHALIC - Eye Exam Eye Exam: EOMI, Normal appearance, PERRL Pupil Exam: NORMAL ACCOMODATION - ENT Exam ENT Exam: Mucous Membranes Dry Additional comments: missing teeth poor dentition - Neck Exam Neck Exam: Normal Inspection - Respiratory Exam Respiratory Exam: Clear to Ausculation Bilateral, NORMAL BREATHING PATTERN. absent: Wheezes, Respiratory Distress - Cardiovascular Exam Cardiovascular Exam: RRR, +S1, +S2. absent: Murmur - GI/Abdominal Exam GI & Abdominal Exam: Soft, Normal Bowel Sounds. absent: Guarding, Tenderness, Organomegaly - Back Exam Back Exam: absent: CVA tenderness (L), CVA tenderness (R) - Neurological Exam Neurological Exam: Alert, Awake, Oriented x3 - Psychiatric Exam Psychiatric exam: Normal Mood - Skin Additional comments: L ankle wrapped in clean dressing (c/d/i) L foot w/ 2 toe amputations - Additional Findings Additional findings: HD catheter in place (RIJ) Assessment and Plan - Assessment and Plan (Free Text) Assessment: 36yo F PMH DM, HTN, HLD, RLE dvt and LLE ulcer who presents w/ Septic shock 2/2 pyelonephritis 2/2 untreated UTI. EMMETT still present, improving on dialysis. Metabolic acidosis resolved. Also found to be anemic, likely due to chronic disease (diabetes). Found to have UTI and LLE ulcer growing MRSA Plan: 1. Septic Shock likely 2/2 pyelo vs untreated UTI - pt clinically improving, shock has resolved off pressors - Sepsis criteria still met - currently on Merrem (d3) and Daptomycin (d2) - ID consulted, recs appreciated - Ucx growing G+ cocci - afebrile, and leukocytosis still present - continue to monitor - pain mgmt: morphine 1q6 PRN - Reglan ACHS for n/v 2. EMMETT on CKD vs worsening CKD - Cr currently 3.3, improved w/ hydration and dialysis (2 sessions so far) - dialysis planned for tomorrow - Nephrology consulted, recs appreciated - RIJ in place 3. LLE ulcer - L Foot cx growing MRSA and corynbacterium - MRI L foot to r/o osteo, f/u results - wound care - f/u sensitivities - podiatry consulted, recs appreciated 4. Metabolic acidosis w/ high AG likely 2/2 uremia - continue to monitor for resp distress or worsening renal fxn - continue dialysis 5. Anemia likely 2/2 chronic dz - Hgb 6.6 - transfused 1u pRBC today - microcytic hypochromic anemia - TIBC low, Fe normal - peripheral smear observed, showing microcytic hypochromic anemia w/ no schistocytes - likely due to chronic kidney 2/2 DM2 6. Hypokalemia - will replete - f/u bmp 7. Hx DM - CCD - ISS low - A1C 8.4 - avoid hypoglycemic episodes - patient was given D50 x4 overnight due to hypoglycemic episodes - pt on D10 20cc/hr - Levemir was discontinued 8. Hx HTN - currently hypotensive - bp meds held 9. Hx HLD - lipid panel ordered CCD Heparin/PTX Patient was seen, evaluated and discussed with attending, Dr. Mayank Donovan PGY1 <Laquita Talley - Last Filed: 10/29/16 18:39> Objective - Vital Signs/Intake and Output Vital Signs (last 24 hours): Temp Pulse Resp BP Pulse Ox 99 F 100 H 20 139/97 H 100 10/29/16 18:00 10/29/16 18:00 10/29/16 18:00 10/29/16 18:00 10/29/16 06:01 Intake and Output: 10/29/16 10/29/16 06:59 18:59 Intake Total 0 Balance 0 - Medications Medications: Current Medications Acetaminophen (Tylenol 325mg Tab) 650 mg PO Q6H PRN PRN Reason: Pain, moderate (4-7) Heparin Sodium (Porcine) (Heparin) 5,000 units SC Q12 JERRICA PRN Reason: Protocol Meropenem 250 mg/ Sodium (Chloride) 100 mls @ 100 mls/hr IVPB Q12H JERRICA PRN Reason: Protocol Stop: 11/10/16 08:31 Last Admin: 10/29/16 10:48 Dose: 100 mls/hr Daptomycin 320 mg/ Sodium (Chloride) 100 mls @ 100 mls/hr IV QOTHERDAY JERRICA PRN Reason: Protocol Stop: 11/04/16 10:01 Dextrose (Dextrose 10% In Water) 500 mls @ 20 mls/hr IV .Q24H [facility]ERRICA Last Admin: 10/29/16 10:48 Dose: 20 mls/hr Insulin Human Lispro (Humalog Med) 0 units SC ACHS JERRICA PRN Reason: Protocol Last Admin: 10/29/16 16:33 Dose: Not Given Metoclopramide HCl (Reglan) 10 mg IVP ACHS [facility]ERRICA Last Admin: 10/29/16 16:34 Dose: Not Given Morphine Sulfate (Morphine) 1 mg IVP Q6H PRN PRN Reason: Pain, severe (8-10) Last Admin: 10/27/16 17:33 Dose: 1 mg Oxychlorosene Sodium (Clorpactin Wcs-90) 2 gm TOP DAILY [facility] Last Admin: 10/29/16 12:24 Dose: Not Given Pantoprazole Sodium (Protonix Inj) 40 mg IVP Q12 [facility] Last Admin: 10/29/16 10:47 Dose: 40 mg - Labs Labs: 10/29/16 07:07 10/29/16 07:07 PT 13.3 Seconds (9.9-11.8) H 10/26/16 20:30 INR 1.23 (0.93-1.08) H 10/26/16 20:30 APTT 40.6 Seconds (23.7-30.8) H 10/26/16 20:30 Attending/Attestation - Attestation I have personally seen and examined this patient.: Yes I have fully participated in the care of the patient.: Yes I have reviewed all pertinent clinical information, including history, physical exam and plan: Yes Notes (Text): 10/29/16 18:35at attending note; Patient seen and examined with resident. Patient's mother by the bedside. Patient is a 36 year old female with history of IDDM, HTN, dyslipidemia, RLE DVT , wheel chair bound, 2 amputated toes of left leg and chronic LE ulcer who presented with severe sepsis secondary to acute pyelonephritis, Acute on chronic kidney disease, AGMA, electrolyte abnormalities, anemia and hypotension. BP has improved and she is now off pressors. Left foot wound culture is growing corynebacterium/MRSA. currently on daptomycin and meropenem. Anemia; patient will get 1 unit of PRBC today. Acute on chronic Disease; patient had hemodialysis yesterday. Monitor electrolytes. LE duplex negative for DVT. Podiatry consult appreciated. Patient might need debridement versus amputation. MRI ordered. Patient wants to follow-up with her own crowd controller. Message left with . Still with elevated white count. We will monitor closely with podiatry. poor and respiratory status secondary to chronic nonhealing diabetic foot ulcer. Upon discharge patient will follow up with Dr Bunch. 10/29/16 18:38
--- NOTE | 2016-10-29 18:17 | PN ---
DATE: SUBJECTIVE: This is a 36-year-old female seen at bedside with her mother present. The patient's mother refused to answer any questions and stated "I'm not involved in this in anyway at all." I spoke with Tamiko on the fact that she has a very high white count, which I explained to her simply that she has a very bad infection in her heel and she needs surgical intervention, however, she is refusing an incision and drainage by any doctor in this hospital and she states that her only doctor that she wants to care for her is Dr. Stahl who is not on staff at this hospital. Her present medical history is significant for longstanding type 1 diabetes with peripheral vascular disease and peripheral neuropathy, hypertension, anemia and a right leg DVT in the past. PAST SURGICAL HISTORY: Positive for vascular intervention done on her right leg and . PHYSICAL EXAMINATION: VITAL SIGNS: Reveal a temperature of 98.8, pulse rate of 94, blood pressure 126/81, and respiratory rate of 20. LABORATORY DATA: Reveal a white count of 26.9 down from 27.5 yesterday. Hemoglobin is 6.6, her hematocrit is 19. The platelet count is 289. Most recent culture of her left heel reveals methicillin resistant staph aureus and Corynebacterium species. Venous duplex reveals no sonographic evidence for deep vein thrombosis of either extremity. OBJECTIVE: Palpable pedal pulses noted bilaterally. Temperature gradient is within normal limits bilaterally. The patient is unable to detect 5.07 g monofilament wire testing bilaterally. The patient presents with no edema and no erythema of each lower extremity. There is noted to be heel amputations on both feet. The patient has a full thickness ulceration on the left medial heel that measures approximately 3 x 3 with purulent discharge emanating from the wound. The patient also presents with a distal wound that measures approximately 0.5 x 0.5 that has a sinus track that is contiguous with the heel ulceration. There is noted to be purulence emanating from this wound as well. Both ulcerations present with necrotic gangrenous tissue. The heel ulceration probes to bone. The area is not edematous and erythematous and there is no ascending cellulitis present. ASSESSMENT: Diabetic full thickness Landa grade 3 diabetic ulceration to the right heel with abscess formation and probing to bone. PLAN OF TREATMENT: This patient spoke with Dr. Talley. We are ordering an MRI; however, clinically the patient does present with osteomyelitis. The patient is still refusing any surgical intervention by anyone in the hospital other than her boxing and pressing supervisor, Dr. Stahl, who is not on staff at [facility]. He is on staff at [facility] and transferred to [facility] would be the best option at this point. The patient's wound was flushed with a solution of Clorpactin solution and normal sterile saline. The wounds were packed with 1/4 inch Xeroform packing and a dry sterile dressing. We ordered foam heel boots; however, the patient refuses to wear them. Dr. Lam's note was read and appreciated and we will continue with the IV antibiotics as per Infectious Disease. We are awaiting culture and sensitivity that were taken yesterday. At this point, the transfer to [facility] would be in the patient's benefit. Podiatry will follow daily. Logan Craven DPM
[2016-10-29 18:18] LABS: FOLATE 6.4 ng/mL
[2016-10-30 06:25] LABS: BASO # 0.01 K/mm3 (0.0-2.0); EOS # 0.4 (0.0-0.7); EOS % 1.5 % (1.5-5.0); GRAN % 90.6 % (50.0-68.0); LYMPH # 0.9 (1.2-3.4); LYMPH % 3.6 % (22.0-35.0); MEAN CELL VOLUME 80.6 fl (80.0-105.0); MEAN CORPUSCULAR HEMOGLOBIN 27.1 pg (25.0-35.0); MEAN CORPUSCULAR HGB CONC 33.6 g/dl (31.0-37.0); MEAN PLATELET VOLUME 8.6 fl (7.0-11.0); MONO # 1.1 (0.1-0.6); MONO % 4.3 % (1.0-6.0); PLATELET COUNT 258 10^3/uL (120.0-450.0); RED CELL DISTRIBUTION WIDTH 15.7 % (11.5-14.5)
[2016-10-30 06:31] LABS: WHITE BLOOD COUNT 25.7 10^3/ul (4.5-11.0)
[2016-10-30 06:32] LABS: HEMATOCRIT 22.9 % (36.0-48.0)
[2016-10-30 06:45] LABS: ALB/GLOB RATIO 0.6 (1.1-1.8); BILIRUBIN,TOTAL 1.3 mg/dL (0.2-1.3); CALCIUM 7.8 mg/dL (8.4-10.5); MAGNESIUM 1.7 mg/dL (1.7-2.2); PHOSPHOROUS 3.8 mg/dL (2.5-4.5); POTASSIUM 4.1 mmol/L (3.6-5.0)
[2016-10-30 06:57] LABS: BAND 3 % (0-2); EOSINOPHIL 1 % (0.0-3.0); NEUTROPHIL 86 % (50.0-70.0); PLATELET ESTIMATE NORMAL (NORMAL)
[2016-10-30] MEDS: Insulin Lispro (humaLOG) MEDIUM Coverage SC SCH ×4 (10:03→22:08)
--- NOTE | 2016-10-30 10:24 | CP.PCM.PN ---
Addendum entered and electronically signed by Eli Weber DO 10/31/16 07:45 : Spoke to patient private geothermal operations manager Dr Lyons yesterday, as per Dr Lyons, he told patient in the past patient needed debridement and possible foot amputation , however patient and patient's mother refused the procedure. In addition, patient has been going from one hospital to another, went from [place] to [facility] to , and was told she needed the amputation and debridement, however patient refused. Original Note: <JOSE LUIS DONOVAN - Last Filed: 10/30/16 19:08> Subjective - Date & Time of Evaluation Date of Evaluation: 10/30/16 Time of Evaluation: 10:00 - Subjective Subjective: patient was seen and examined at bedside. the patient is asked about recent hospitalizations and she mentions that she went to [facility] because it was close her physical therapy. When asked why she needed Physical Therapy, the patient states that because she was spending a lot of time in bed because she was lazy. This caused her to lose muscle mass and she and she became unable to walk on her legs. Patient also states that she [place] [facility] [place] and she refused to have them treat her. It was explained to the patient that it is of great importance for her to have her leg checked out by Podiatry because of the deep infection and possibility of osteomyelitis. during the conversation with the patient, the mother is making agitated noises as well as acting eccentric, stating that last time someone worked on her leg, she had her toes amputated; the mother doesn't seem to have capacity to understand the severity of the patient's condition. it was explained to the patient that it is her duty to understand her condition and consent to the management being offered her. The patient understands and would like to contact her private geothermal operations manager for further communication. she remains adamant that his weekly wound care is sufficient for her condition. she offers no complaints of fevers, chills, abdominal pain, dysuria, chest pain or shortness of breath. Objective - Vital Signs/Intake and Output Vital Signs (last 24 hours): Temp Pulse Resp BP Pulse Ox 99.4 F 119 H 22 147/103 H 96 10/30/16 06:00 10/30/16 06:00 10/30/16 06:00 10/30/16 06:00 10/30/16 06:00 Intake and Output: 10/30/16 10/30/16 06:59 18:59 Intake Total 784 Output Total 300 Balance 484 - Medications Medications: Current Medications Acetaminophen (Tylenol 325mg Tab) 650 mg PO Q6H PRN PRN Reason: Pain, moderate (4-7) Heparin Sodium (Porcine) (Heparin) 5,000 units SC Q12 JERRICA PRN Reason: Protocol Last Admin: 10/29/16 22:36 Dose: 5,000 units Meropenem 250 mg/ Sodium (Chloride) 100 mls @ 100 mls/hr IVPB Q12H JERRICA PRN Reason: Protocol Stop: 11/10/16 08:31 Last Admin: 10/29/16 22:34 Dose: 100 mls/hr Daptomycin 320 mg/ Sodium (Chloride) 100 mls @ 100 mls/hr IV QOTHERDAY JERRICA PRN Reason: Protocol Stop: 11/04/16 10:01 Insulin Human Lispro (Humalog Med) [address] [facility] PRN Reason: Protocol Last Admin: 10/29/16 22:00 Dose: Not Given Metoclopramide HCl (Reglan) 10 mg IVP ACHS [facility] Last Admin: 10/29/16 22:00 Dose: Not Given Morphine Sulfate (Morphine) 1 mg IVP Q6H PRN PRN Reason: Pain, severe (8-10) Last Admin: 10/27/16 17:33 Dose: 1 mg Oxychlorosene Sodium (Clorpactin Wcs-90) 2 gm TOP DAILY [facility] Last Admin: 10/29/16 12:24 Dose: Not Given Pantoprazole Sodium (Protonix Inj) 40 mg IVP Q12 [facility] Last Admin: 10/29/16 22:36 Dose: 40 mg - Labs Labs: 10/30/16 05:40 10/30/16 05:40 PT 13.3 Seconds (9.9-11.8) H 10/26/16 20:30 INR 1.23 (0.93-1.08) H 10/26/16 20:30 APTT 40.6 Seconds (23.7-30.8) H 10/26/16 20:30 - Additional Findings Additional findings: - Constitutional Appears: Not in Acute Distress, Unkempt, Older Than Stated Age - Head Exam Head Exam: ATRAUMATIC, NORMAL INSPECTION, NORMOCEPHALIC - Eye Exam Eye Exam: EOMI, Normal appearance, PERRL Pupil Exam: NORMAL ACCOMODATION - ENT Exam ENT Exam: Mucous Membranes Dry Additional comments: missing teeth poor dentition - Neck Exam Neck Exam: Normal Inspection - Respiratory Exam Respiratory Exam: Clear to Ausculation Bilateral, NORMAL BREATHING PATTERN. absent: Wheezes, Respiratory Distress - Cardiovascular Exam Cardiovascular Exam: RRR, +S1, +S2. absent: Murmur - GI/Abdominal Exam GI & Abdominal Exam: Soft, Normal Bowel Sounds. absent: Guarding, Tenderness, Organomegaly - Back Exam Back Exam: absent: CVA tenderness (L), CVA tenderness (R) - Neurological Exam Neurological Exam: Alert, Awake, Oriented x3 - Psychiatric Exam Psychiatric exam: Normal Mood - Skin Additional comments: L ankle wrapped in clean dressing (c/d/i) L foot w/ 2 toe amputations - Additional Findings Additional findings: HD catheter in place (RIJ) Assessment and Plan - Assessment and Plan (Free Text) Assessment: 36yo F PMH DM, HTN, HLD, RLE dvt and LLE ulcer who presents w/ Septic shock 2/2 pyelonephritis 2/2 untreated UTI. EMMETT still present, improving on dialysis. Metabolic acidosis resolved. Also found to be anemic, likely due to chronic disease (diabetes). Found to have UTI and LLE ulcer growing MRSA. MRI shows osteomyelitis of L calcaneus and diffuse plantar proximal aspect of L foot. Plan: 1. Septic Shock likely 2/2 osteomyelitis vs pyelo vs untreated UTI - pt clinically improving, shock has resolved off pressors - Sepsis criteria still met - currently on Merrem (d4) and Daptomycin (d3) - ID consulted, recs appreciated - L foot wound cx growing MRSA and corynebacterium - Ucx growing G+ cocci - mild fever this AM, tachycardia, and leukocytosis still present - continue to monitor - pain mgmt: morphine 1q6 PRN - Reglan ACHS for n/v 2. LLE ulcer - L Foot cx growing MRSA and corynbacterium - MRI L foot shows osteomyelitis of L calcaneus and diffuse plantar proximal aspect of L foot. - wound care per podiatry - pt going to OR for I&D tomorrow 9AM - pt was educated on the severity of her condition today by the medical team, ID and podiatry. Pt seems to lack understanding of the severity of her ulcer and deep infection. Mother is resistant to the team's effort to treat the pt and seems to lack capacity to understand; very eccentric. - f/u sensitivities - podiatry consulted, recs appreciated 3. EMMETT on CKD vs worsening CKD - Cr currently 3.6, improved w/ hydration and dialysis (2 sessions so far) - dialysis pushed back to tomorrow - Nephrology consulted, recs appreciated - RIJ in place 4. Metabolic acidosis w/ high AG likely 2/2 uremia - continue to monitor for resp distress or worsening renal fxn - continue dialysis 5. Anemia likely 2/2 chronic dz - Hgb 7.7 - transfused 1u pRBC yesterday - microcytic hypochromic anemia - TIBC low, Fe normal - peripheral smear observed, showing microcytic hypochromic anemia w/ no schistocytes - likely due to chronic kidney 2/2 uncontrolled DM2 6. Hypokalemia - repleted - f/u bmp 7. Hx DM - CCD - ISS low - A1C 8.4 - avoid hypoglycemic episodes 8. Hx HTN - bp meds held CCD, NPO past midnight Heparin/PTX Patient was seen, evaluated and discussed with attending, Dr. Mayank Donovan PGY1 <Laquita Talley - Last Filed: 10/31/16 12:26> Objective - Vital Signs/Intake and Output Vital Signs (last 24 hours): Temp Pulse Resp BP Pulse Ox 98.7 F 78 18 113/73 100 10/31/16 11:30 10/31/16 11:30 10/31/16 11:30 10/31/16 11:30 10/31/16 09:56 Intake and Output: 10/31/16 10/31/16 06:59 18:59 Intake Total 375 75 Output Total 250 Balance 125 75 - Medications Medications: Current Medications Acetaminophen (Tylenol 325mg Tab) 650 mg PO Q6H PRN PRN Reason: Pain, moderate (4-7) Last Admin: 10/30/16 17:47 Dose: 650 mg Heparin Sodium (Porcine) (Heparin) 5,000 units SC Q12 JERRICA PRN Reason: Protocol Last Admin: 10/30/16 10:04 Dose: 5,000 units Meropenem 250 mg/ Sodium (Chloride) 100 mls @ 100 mls/hr IVPB Q12H JERRICA PRN Reason: Protocol Stop: 11/10/16 08:31 Last Admin: 10/31/16 10:37 Dose: 100 mls/hr Daptomycin 320 mg/ Sodium (Chloride) 100 mls @ 100 mls/hr IV QOTHERDAY JERRICA PRN Reason: Protocol Stop: 11/04/16 10:01 Last Admin: 10/30/16 12:18 Dose: 100 mls/hr Insulin Human Lispro (Humalog Med) 0 units SC ACHS JERRICA PRN Reason: Protocol Last Admin: 10/31/16 07:30 Dose: Not Given Metoclopramide HCl (Reglan) 5 mg IVP ACHS [facility] Last Admin: 10/31/16 07:30 Dose: Not Given Oxychlorosene Sodium (Clorpactin Wcs-90) 2 gm TOP DAILY [facility] Last Admin: 10/31/16 10:36 Dose: Not Given Pantoprazole Sodium (Protonix Inj) 40 mg IVP Q12 [facility] Last Admin: 10/31/16 10:43 Dose: 40 mg - Labs Labs: 10/31/16 06:17 10/31/16 06:17 PT 13.3 Seconds (9.9-11.8) H 10/26/16 20:30 INR 1.23 (0.93-1.08) H 10/26/16 20:30 APTT 40.6 Seconds (23.7-30.8) H 10/26/16 20:30 Attending/Attestation - Attestation I have personally seen and examined this patient.: Yes I have fully participated in the care of the patient.: Yes I have reviewed all pertinent clinical information, including history, physical exam and plan: Yes Notes (Text): 10/31/16 12:19 attending note; Patient seen and examined with resident. Patient's mother by the bedside. Patient is a 36 year old female with history of IDDM, HTN, dyslipidemia, RLE DVT , wheel chair bound, 2 amputated toes of left leg and chronic LE ulcer who presented with severe sepsis secondary to acute pyelonephritis, Acute on chronic kidney disease, AGMA, electrolyte abnormalities, anemia and hypotension. BP has improved and she is now off pressors. Left foot wound culture is growing corynebacterium/MRSA. currently on daptomycin and meropenem. Anemia; multifactorial. Patient never had workup done as outpatient for chronic anemia. Patient will get 1 unit PRBC today. Acute on chronic Disease; Monitor electrolytes. hemodialysis per nephrology. Diabetes; hypoglycemia resolved. Continue Regular Insulin sliding scale. Add Levemir as needed. Patient was seen and examined with geothermal operations manager today. MRI result explained. Patient has abscess and osteomyelitis. Finally patient Agreed for incision and drainage after multiple conversations. Plan for OR in a.m. patient had chronic wound infection, abscess and osteomyelitis. refused treatment in multiple hospitals. Recent admission was at [facility]. Case discussed with patient's geothermal operations manager DR. Stahl in detail by medical technologist clinical. Upon discharge patient will follow up with Dr Bunch. 10/31/16 12:24
--- NOTE | 2016-10-30 12:11 | MRI ---
PROCEDURE: MRI of the left foot without contrast. HISTORY: Possible osteo COMPARISON: No prior similar study available for comparison TECHNIQUE: Axial coronal and sagittal MRI images of the left foot were obtained without IV contrast administration. FINDINGS: There are heterogeneous diffuse bone marrow edema seen at the mid and posterior aspect of the left calcaneus bone. There are small foci of cortical erosion seen at the posterior plantar aspect of the left calcaneus. Findings suggestive of osteomyelitis. There is adjacent a deep penetrating ulcer and soft tissue edema and inflammation seen at the plantar aspect of the proximal left foot. The Achillis tendon is intact. There is diffuse increased signal in the adjacent muscles and tendon at the plantar aspect of the proximal left foot suggestive of myositis and tendinopathy. Trace amount of joint effusion seen at the left ankle. No evidence of acute pathology otherwise in the left ankle. There is heterogeneous increased bone marrow signal at the distal portion of the 1st metatarsal bone and proximal phalanx of the big toe likely represent reactive bone marrow edema. The possibility of an air early osteomyelitis is less likely. There is adjacent abnormal signal in the soft tissue around the 1st metatarsal-phalangeal joint. There is [id number] hallux valgus deformity. IMPRESSION: Bone marrow edema and cortical erosion at the posterior plantar aspect of the left calcaneus bone likely represent osteomyelitis. Bone marrow edema without evidence of cortical erosion at the distal 1st metatarsal bone and proximal phalanx of the 1st toe may represent reactive bone marrow edema or post traumatic bone contusion or edema. The possibility of osteomyelitis is less likely. Abnormal soft tissue signal and deep ulcer seen at the plantar aspect of the proximal right foot. The possibility of small abscess formation cannot be excluded in this noncontrast study. Diffuse myositis at the plantar proximal aspect of the left foot.
[2016-10-30] MEDS: Oxychlorosene Topical 2 gm Packet TOP SCH (12:18)
--- NOTE | 2016-10-30 14:09 | CP.PCM.PN ---
Subjective - Date & Time of Evaluation Date of Evaluation: 10/30/16 Time of Evaluation: 10:10 - Subjective Subjective: Comfortable, not in distress, not complaining of pain in the left foot. Currently agreeing to have I and D done on her left foot. Had MRI done on the foot today. Objective - Vital Signs/Intake and Output Vital Signs (last 24 hours): Temp Pulse Resp BP Pulse Ox 99.4 F 119 H 22 147/103 H 96 10/30/16 06:00 10/30/16 06:00 10/30/16 06:00 10/30/16 06:00 10/30/16 06:00 Intake and Output: 10/30/16 10/30/16 06:59 18:59 Intake Total 784 Output Total 300 Balance 484 - Medications Medications: Current Medications Acetaminophen (Tylenol 325mg Tab) 650 mg PO Q6H PRN PRN Reason: Pain, moderate (4-7) Heparin Sodium (Porcine) (Heparin) 5,000 units SC Q12 [facility] PRN Reason: Protocol Last Admin: 10/29/16 22:36 Dose: 5,000 units Meropenem 250 mg/ Sodium (Chloride) 100 mls @ 100 mls/hr IVPB Q12H [facility] PRN Reason: Protocol Stop: 11/10/16 08:31 Last Admin: 10/29/16 22:34 Dose: 100 mls/hr Daptomycin 320 mg/ Sodium (Chloride) 100 mls @ 100 mls/hr IV QOTHERDAY [facility] PRN Reason: Protocol Stop: 11/04/16 10:01 Insulin Human Lispro (Humalog Med) 0 units SC ACHS [facility] PRN Reason: Protocol Last Admin: 10/29/16 22:00 Dose: Not Given Metoclopramide HCl (Reglan) 10 mg IVP ACHS [facility] Last Admin: 10/29/16 22:00 Dose: Not Given Morphine Sulfate (Morphine) 1 mg IVP Q6H PRN PRN Reason: Pain, severe (8-10) Last Admin: 10/27/16 17:33 Dose: 1 mg Oxychlorosene Sodium (Clorpactin Wcs-90) 2 gm TOP DAILY [facility] Last Admin: 10/29/16 12:24 Dose: Not Given Pantoprazole Sodium (Protonix Inj) 40 mg IVP Q12 [facility] Last Admin: 10/29/16 22:36 Dose: 40 mg - Labs Labs: 10/30/16 05:40 10/30/16 05:40 PT 13.3 Seconds (9.9-11.8) H 10/26/16 20:30 INR 1.23 (0.93-1.08) H 10/26/16 20:30 APTT 40.6 Seconds (23.7-30.8) H 10/26/16 20:30 - Constitutional Appears: Non-toxic, No Acute Distress - Head Exam Head Exam: NORMAL INSPECTION - ENT Exam ENT Exam: Mucous Membranes Moist - Neck Exam Neck Exam: absent: Meningismus - Respiratory Exam Respiratory Exam: Decreased Breath Sounds - Cardiovascular Exam Cardiovascular Exam: +S1, +S2 - GI/Abdominal Exam GI & Abdominal Exam: Soft. absent: Tenderness Assessment and Plan - Assessment and Plan (Free Text) Plan: Assessment Severe sepsis with acute renal failure due to acute pyelonephritis, now growing gram positive cocci in the urine left foot wound infection with MRSA and Corynebacterium, MRI showing osteomyelitis DM with diabetic neuropathy HTN history of right DVT bilateral foot ulcers Plan continue Merrem day 4 and will continue renally-adjusted IV Daptomycin pending urine cx results (showing gram positive cocci); wound cx showing MRSA and Corynebacterium reviewed MRI of left foot showing osteomyelitis - for procedure tomorrow with Podiatry will continue to monitor clinically
--- NOTE | 2016-10-30 16:12 | CP.PCM.PCO ---
Physician Communication Note - Physician Communication Note Physician Communication Note: d/w , consult was canceled, advised reconsult as needed
--- NOTE | 2016-10-30 17:21 | CP.PCM.PN ---
<Brennan Cantu - Last Filed: 10/30/16 17:24> Subjective - Date & Time of Evaluation Date of Evaluation: 10/30/16 Time of Evaluation: 17:16 - Subjective Subjective: Podiatry Progress Note - Dr. Lazar 36 year old female patient PMHx IDDM, renal failure, sepsis, metabolic acidosis , UTI, CKD, anemia seen at bedside for left heel ulcerations + abscess. Patient seen resting comfortably, AAOx3 and NAD. Patient is accompanied by mother at bedside, who was initially agitated with continued care to patient's left foot. Patient denies any acute events overnight. Patient denies any pain to her left foot. Patient denies N/V/F/D/C/SOB/calf pain. No other pedal complaints at this time. Objective - Vital Signs/Intake and Output Vital Signs (last 24 hours): Temp Pulse Resp BP Pulse Ox 99.4 F 112 H 22 147/103 H 96 10/30/16 06:00 10/30/16 14:00 10/30/16 06:00 10/30/16 06:00 10/30/16 06:00 Intake and Output: 10/30/16 10/30/16 06:59 18:59 Intake Total 784 Output Total 300 Balance 484 - Medications Medications: Current Medications Acetaminophen (Tylenol 325mg Tab) 650 mg PO Q6H PRN PRN Reason: Pain, moderate (4-7) Heparin Sodium (Porcine) (Heparin) 5,000 units SC Q12 [facility] PRN Reason: Protocol Last Admin: 10/30/16 10:04 Dose: 5,000 units Meropenem 250 mg/ Sodium (Chloride) 100 mls @ 100 mls/hr IVPB Q12H [facility] PRN Reason: Protocol Stop: 11/10/16 08:31 Last Admin: 10/30/16 10:04 Dose: 100 mls/hr Daptomycin 320 mg/ Sodium (Chloride) 100 mls @ 100 mls/hr IV QOTHERDAY [facility] PRN Reason: Protocol Stop: 11/04/16 10:01 Last Admin: 10/30/16 12:18 Dose: 100 mls/hr Insulin Human Lispro (Humalog Med) 0 units SC ACHS [facility] PRN Reason: Protocol Last Admin: 10/30/16 12:27 Dose: 5 units Metoclopramide HCl (Reglan) 5 mg IVP ACHS [facility] Morphine Sulfate (Morphine) 1 mg IVP Q6H PRN PRN Reason: Pain, severe (8-10) Last Admin: 10/27/16 17:33 Dose: 1 mg Oxychlorosene Sodium (Clorpactin Wcs-90) 2 gm TOP DAILY [facility] Last Admin: 10/30/16 12:18 Dose: Not Given Pantoprazole Sodium (Protonix Inj) 40 mg IVP Q12 [facility] Last Admin: 10/30/16 10:05 Dose: 40 mg - Labs Labs: 10/30/16 05:40 10/30/16 05:40 PT 13.3 Seconds (9.9-11.8) H 10/26/16 20:30 INR 1.23 (0.93-1.08) H 10/26/16 20:30 APTT 40.6 Seconds (23.7-30.8) H 10/26/16 20:30 - Constitutional Appears: Well, Non-toxic, No Acute Distress, Unkempt - Extremities Exam Additional comments: VASC: DP and PT pulses palpable 2/4 b/l. TG WNL b/l. Edema noted to left foot. NEURO: Gross sensation absent bilaterally. DERM: Ulceration noted to left medial heel measuring approximately 3 x 3 cm with a mixed fibronecrotic base and yellow-green purulence emanating from wound. Ulceration #2 noted distal to ulcer #1 located at plantar medial arch, measuring approximately 0.6 x 0.5 cm with a mixed fibronecrotic base and yellow- green purulence emanating from wound. Ulcer #2 tracks to ulcer #1. Ulceration noted to posterior aspect of left heel with a mixed fibronecrotic base, also contiguous with ulcers 1&2. All ulcerations +malodor, +probe to bone,-ascending erythema. ORTHO: No pain on palpation noted to left foot - Neurological Exam Neurological Exam: Alert, Awake, Oriented x3 - Psychiatric Exam Psychiatric exam: Agitated Assessment and Plan - Assessment and Plan (Free Text) Assessment: 36 year old female PMHx IDDM, renal failure, sepsis, metabolic acidosis, UTI, CKD, anemia with left foot abscess, Landa grade III ulcerations x3, and probable osteomyelitis Plan: Patient seen and evaluated with attending, Dr. Lazar Chart, vitals, labs reviewed = afebrile, WBC increased @ 25.7 - WBC 10/29 26.9 - WBC 10/28 27.5 - WBC 10/27 27.3 Left foot wound culture - MRSA, corynebacterium LLE MRI reviewed: Bone marrow edema and cortical erosion at the posterior plantar aspect of the left calcaneus likely represents osteomyelitis. Abnormal soft tissue signal and deep ulcer seen at the plantar aspect of hte preoximal right foot. Discussed with patient morbidity associated with left heel abscess, and recommend surgical intervention to remove remaining purulence. Patient demonstrates verbal understanding. - To OR tomorrow, 10/31/16 @ 8:00AM for left foot I&D and debridement of non- viable tissue - NPO past mn - Consent form signed after procedure was explained in detail including risks, benefits, complications, and alternatives to procedure Ulcers excisionally debrided of necrotic tissue down to a fibrous base; however necrotic tissue remains. Approximately 2cc of purulence was expressed from ulcers. The wounds were then cleansed with Clorpactin/Saline solution, packed wit 1/4" iodoform packing strip, and dressed with maxsorb and DSD Patient continues to refuse multipodus boots Per ID, continue Merrem (day4) and renally-adjusted IV Daptomycin Podiatry will continue to follow patient while in house <Rina Lazar - Last Filed: 11/10/16 14:35> Objective - Vital Signs/Intake and Output Vital Signs (last 24 hours): Temp Pulse Resp BP Pulse Ox 99.4 F 118 H 20 138/80 94 L 11/10/16 09:00 11/10/16 10:11/10/16 06:00 11/10/16 10:18 11/10/16 06:00 Intake and Output: 11/10/16 11/10/16 06:59 18:59 Intake Total 940 Output Total 350 Balance 590 - Medications Medications: Current Medications Acetaminophen (Tylenol 325mg Tab) 650 mg PO Q6H PRN PRN Reason: Pain, moderate (4-7) Last Admin: 11/10/16 08:00 Dose: 650 mg Artificial Tears (Artificial Tears) 0.2 ml OU DAILY PRN PRN Reason: Dry skin Last Admin: 11/07/16 10:25 Dose: 2 drop Ascorbic Acid (Vitamin C 500 Mg Tab) 500 mg PO BID [facility] Last Admin: 11/10/16 10:17 Dose: 500 mg Carvedilol (Coreg) 6.25 mg PO BID [facility] Last Admin: 11/10/16 10:17 Dose: 6.25 mg Collagenase (Santyl) 0 gm TOP DAILY [facility] Last Admin: 11/10/16 10:25 Dose: Not Given Ferrous Sulfate (Feosol Liq) 300 mg PO TID [facility] Last Admin: 11/10/16 13:50 Dose: 300 mg Furosemide (Lasix) 40 mg IVP DAILY [facility] Last Admin: 11/10/16 10:18 Dose: 40 mg Meropenem 250 mg/ Sodium (Chloride) 100 mls @ 100 mls/hr IVPB Q12H [facility] PRN Reason: Protocol Stop: 11/19/16 09:31 Last Admin: 11/10/16 10:19 Dose: 100 mls/hr Insulin Detemir (Levemir) 7 unit SC BID [facility] Last Admin: 11/09/16 18:56 Dose: Not Given Insulin Human Lispro (Humalog Med) 0 units SC ACHS [facility] PRN Reason: Protocol Last Admin: 11/10/16 12:46 Dose: 5 units Metoclopramide HCl (Reglan) 5 mg IVP ACHS [facility] Last Admin: 11/10/16 08:01 Dose: Not Given Multi-Ingredient Cream (Hydrocerin Cream) 0 ea TOP BID [facility] Last Admin: 11/10/16 13:47 Dose: 1 unit Multivitamins/Minerals (Therapeutic-M Tab) 1 tab PO 0800 [facility] Last Admin: 11/10/16 08:00 Dose: 1 tab Oxychlorosene Sodium (Clorpactin Wcs-90) 2 gm TOP DAILY [facility] Last Admin: 11/10/16 11:07 Dose: Not Given Pantoprazole Sodium (Protonix Ec Tab) 40 mg PO 0600,1600 [facility] Last Admin: 11/10/16 05:16 Dose: 40 mg Pregabalin (Lyrica) 100 mg PO TID [facility] Last Admin: 11/10/16 13:50 Dose: 100 mg Sodium Bicarbonate (Sodium Bicarbonate Tab) 2,600 mg PO QID [facility] Last Admin: 11/10/16 13:50 Dose: 2,600 mg Zinc Sulfate (Zinc Sulfate 220 Mg Cap) 220 mg PO DAILY [facility] Last Admin: 11/10/16 10:17 Dose: 220 mg - Labs Labs: 11/10/16 07:30 11/10/16 07:30 PT 13.3 Seconds (9.9-11.8) H 10/26/16 20:30 INR 1.23 (0.93-1.08) H 10/26/16 20:30 APTT 28.7 Seconds (23.7-30.8) 11/06/16 05:30 Attending/Attestation - Attestation I have personally seen and examined this patient.: Yes I have fully participated in the care of the patient.: Yes I have reviewed all pertinent clinical information, including history, physical exam and plan: Yes
--- NOTE | 2016-10-31 05:59 | CP.PCM.PN ---
Subjective - Date & Time of Evaluation Date of Evaluation: 10/30/16 Time of Evaluation: 11:00 - Subjective Subjective: Patient denies shortness of breath; eating well; reports urinating well; Objective - Vital Signs/Intake and Output Vital Signs (last 24 hours): Temp Pulse Resp BP Pulse Ox 98.8 F 92 H 19 106/73 92 L 10/31/16 05:36 10/31/16 05:36 10/31/16 05:36 10/31/16 05:36 10/31/16 05:36 Intake and Output: 10/30/16 10/31/16 18:59 06:59 Intake Total 375 Output Total 250 Balance 125 - Medications Medications: Current Medications Acetaminophen (Tylenol 325mg Tab) 650 mg PO Q6H PRN PRN Reason: Pain, moderate (4-7) Last Admin: 10/30/16 17:47 Dose: 650 mg Heparin Sodium (Porcine) (Heparin) 5,000 units SC Q12 [facility] PRN Reason: Protocol Last Admin: 10/30/16 10:04 Dose: 5,000 units Meropenem 250 mg/ Sodium (Chloride) 100 mls @ 100 mls/hr IVPB Q12H [facility] PRN Reason: Protocol Stop: 11/10/16 08:31 Last Admin: 10/30/16 22:36 Dose: 100 mls/hr Daptomycin 320 mg/ Sodium (Chloride) 100 mls @ 100 mls/hr IV QOTHERDAY [facility] PRN Reason: Protocol Stop: 11/04/16 10:01 Last Admin: 10/30/16 12:18 Dose: 100 mls/hr Ibuprofen (Motrin Tab) 400 mg PO Q6H PRN PRN Reason: Fever >100.4 F Last Admin: 10/30/16 18:58 Dose: 400 mg Insulin Human Lispro (Humalog Med) 0 units SC ACHS [facility] PRN Reason: Protocol Last Admin: 10/30/16 22:08 Dose: Not Given Metoclopramide HCl (Reglan) 5 mg IVP ACHS [facility] Last Admin: 10/30/16 21:44 Dose: Not Given Oxychlorosene Sodium (Clorpactin Wcs-90) 2 gm TOP DAILY [facility] Last Admin: 10/30/16 12:18 Dose: Not Given Pantoprazole Sodium (Protonix Inj) 40 mg IVP Q12 [facility] Last Admin: 10/30/16 21:44 Dose: 40 mg - Labs Labs: 10/30/16 05:40 10/30/16 05:40 PT 13.3 Seconds (9.9-11.8) H 10/26/16 20:30 INR 1.23 (0.93-1.08) H 10/26/16 20:30 APTT 40.6 Seconds (23.7-30.8) H 10/26/16 20:30 - Constitutional Appears: Non-toxic, No Acute Distress - Head Exam Head Exam: NORMAL INSPECTION - Eye Exam Eye Exam: Normal appearance - ENT Exam ENT Exam: Mucous Membranes Moist - Respiratory Exam Respiratory Exam: Clear to Ausculation Bilateral. absent: Respiratory Distress - Cardiovascular Exam Cardiovascular Exam: Gallop, +S1, +S2 - GI/Abdominal Exam GI & Abdominal Exam: Soft. absent: Distended, Tenderness - Extremities Exam Additional comments: minimal leg edema; - Skin Skin Exam: Warm. absent: Cyanosis Assessment and Plan (1) Acute renal failure Assessment & Plan: Improved; serum creatinine did rise slightly and unable to quantify urine output after sorenson was removed (patient now refusing sorenson re-insertion); will hold off on HD again today and re-assess tomorrow; not yet ready for discharge home; Status: Acute (2) CKD (chronic kidney disease) Assessment & Plan: Likely advanced CKD with massive proteinuria in the setting of DM; -checking 24 hr UPEP; awaiting free light chains, SPEP; Status: Acute (3) Anemia Assessment & Plan: Stable after prbc transfusion; will start aranesp 40 mcg; Status: Acute (4) Metabolic acidosis Assessment & Plan: Improved; monitor; may need PO bicarb replacement chronically; Status: Acute (5) Sepsis Assessment & Plan: Patient with osteomyelitis involving L foot; in light of future HD needs, need to avoid PICC line; consider tunneled IJ port; Status: Acute
[2016-10-31 06:24] LABS: BASO # 0.01 K/mm3 (0.0-2.0); EOS # 0.4 (0.0-0.7); EOS % 1.6 % (1.5-5.0); GRAN # 21.4 (1.4-6.5); GRAN % 89.9 % (50.0-68.0); HEMATOCRIT 24.2 % (36.0-48.0); LYMPH % 4.1 % (22.0-35.0); MEAN CELL VOLUME 82.6 fl (80.0-105.0); MEAN CORPUSCULAR HEMOGLOBIN 27.6 pg (25.0-35.0); MEAN CORPUSCULAR HGB CONC 33.5 g/dl (31.0-37.0); MEAN PLATELET VOLUME 8.7 fl (7.0-11.0); MONO # 1.1 (0.1-0.6); MONO % 4.4 % (1.0-6.0); RED CELL DISTRIBUTION WIDTH 15.4 % (11.5-14.5); WHITE BLOOD COUNT 23.8 10^3/ul (4.5-11.0)
[2016-10-31 06:35] LABS: ALB/GLOB RATIO 0.6 (1.1-1.8); CALCIUM 7.9 mg/dL (8.4-10.5); MAGNESIUM 1.6 mg/dL (1.7-2.2); PHOSPHOROUS 4.4 mg/dL (2.5-4.5); POTASSIUM 4.3 mmol/L (3.6-5.0); TOTAL PROTEIN 6.9 g/dL (5.8-8.3)
[2016-10-31] MEDS ORDERED: Lidocaine 2% Inj (20ml) ONE (07:25)
[2016-10-31] MEDS: Insulin Lispro (humaLOG) MEDIUM Coverage SC SCH ×4 (07:30→22:12)
[2016-10-31] MEDS ORDERED: Magnesium Sulfate 2 GM in Sodium Chloride 0.9% 100 ML IV ONE (07:43)
[2016-10-31] MEDS ORDERED: Gentamicin 80 mg/2mL Inj. ONE (08:26)
[2016-10-31] MEDS ORDERED: Midazolam 2 MG/2 ML VIAL ONE (08:31)
[2016-10-31] MEDS ORDERED: Lactated Ringer's 1,000 ML IV SCH (08:45)
[2016-10-31] MEDS ORDERED: Absorbable Gelatin Sponge Size 100 ONE (09:13)
[2016-10-31] MEDS: Oxychlorosene Topical 2 gm Packet TOP SCH (10:36)
--- NOTE | 2016-10-31 10:58 | CP.PCM.PN ---
<Brennan Cantu - Last Filed: 10/31/16 10:55> Subjective - Date & Time of Evaluation Date of Evaluation: 10/31/16 Time of Evaluation: 08:00 - Subjective Subjective: Podiatry Progress Note -Dr. Lazar 36 year old female patient PMHx IDDM, renal failure, sepsis, metabolic acidosis , UTI, CKD, anemia seen in PACU for pre-operative evaluation for left foot incision and drainage by Dr. Lazar. Patient seen resting comfortably, AAOx3 and NAD. Patient denies any pain to her left foot today. Patient aware she has exhausted conservative treatment, is aware her white count is greatly increased , and now opts for surgical intervention. NPO status confirmed. Patient denies N /V/F/D/C/SOB/calf pain. No other pedal complaints at this time. Objective - Vital Signs/Intake and Output Vital Signs (last 24 hours): Temp Pulse Resp BP Pulse Ox 98.8 F 94 H 16 133/81 100 10/31/16 09:56 10/31/16 10:22 10/31/16 09:56 10/31/16 09:56 10/31/16 09:56 Intake and Output: 10/31/16 10/31/16 06:59 18:59 Intake Total 375 75 Output Total 250 Balance 125 75 - Medications Medications: Current Medications Acetaminophen (Tylenol 325mg Tab) 650 mg PO Q6H PRN PRN Reason: Pain, moderate (4-7) Last Admin: 10/30/16 17:47 Dose: 650 mg Heparin Sodium (Porcine) (Heparin) 5,000 units SC Q12 [facility] PRN Reason: Protocol Last Admin: 10/30/16 10:04 Dose: 5,000 units Meropenem 250 mg/ Sodium (Chloride) 100 mls @ 100 mls/hr IVPB Q12H [facility] PRN Reason: Protocol Stop: 11/10/16 08:31 Last Admin: 10/30/16 22:36 Dose: 100 mls/hr Daptomycin 320 mg/ Sodium (Chloride) 100 mls @ 100 mls/hr IV QOTHERDAY [facility] PRN Reason: Protocol Stop: 11/04/16 10:01 Last Admin: 10/30/16 12:18 Dose: 100 mls/hr Insulin Human Lispro (Humalog Med) 0 units SC ACHS [facility] PRN Reason: Protocol Last Admin: 10/31/16 07:30 Dose: Not Given Metoclopramide HCl (Reglan) 5 mg IVP ACHS [facility] Last Admin: 10/31/16 07:30 Dose: Not Given Oxychlorosene Sodium (Clorpactin Wcs-90) 2 gm TOP DAILY [facility] Last Admin: 10/30/16 12:18 Dose: Not Given Pantoprazole Sodium (Protonix Inj) 40 mg IVP Q12 [facility] Last Admin: 10/30/16 21:44 Dose: 40 mg - Labs Labs: 10/31/16 06:17 10/31/16 06:17 PT 13.3 Seconds (9.9-11.8) H 10/26/16 20:30 INR 1.23 (0.93-1.08) H 10/26/16 20:30 APTT 40.6 Seconds (23.7-30.8) H 10/26/16 20:30 - Constitutional Appears: Well, Non-toxic, No Acute Distress - Extremities Exam Additional comments: Dresing to LLE appears clean, dry, and intact with no strikethrough noted - Neurological Exam Neurological Exam: Alert, Awake, Oriented x3 - Psychiatric Exam Psychiatric exam: Normal Affect, Normal Mood Assessment and Plan - Assessment and Plan (Free Text) Assessment: 36 year old female PMHx IDDM, renal failure, sepsis, metabolic acidosis, UTI, CKD, anemia with left foot abscess, Landa grade III ulcerations x3, and probable osteomyelitis Plan: Pt was seen and examined Pt NPO status was confirmed All Pre-op testing and clearance was in the chart Pt has exhausted all conservative treatment at this time and is opting for surgical intervention Pt was explained procedure and post-operative course All pt's questions were answered to satisfaction No guarantees were made Pt understands all risks, benefits and complications of procedure Podiatry will continue to follow patient while in house <Rina Lazar - Last Filed: 11/10/16 14:37> Objective - Vital Signs/Intake and Output Vital Signs (last 24 hours): Temp Pulse Resp BP Pulse Ox 99.4 F 118 H 20 138/80 94 L 11/10/16 09:00 11/10/16 10:17 11/10/16 06:00 11/10/16 10:18 11/10/16 06:00 Intake and Output: 11/10/16 11/10/16 06:59 18:59 Intake Total 940 Output Total 350 Balance 590 - Medications Medications: Current Medications Acetaminophen (Tylenol 325mg Tab) 650 mg PO Q6H PRN PRN Reason: Pain, moderate (4-7) Last Admin: 11/10/16 08:00 Dose: 650 mg Artificial Tears (Artificial Tears) 0.2 ml OU DAILY PRN PRN Reason: Dry skin Last Admin: 11/07/16 10:25 Dose: 2 drop Ascorbic Acid (Vitamin C 500 Mg Tab) 500 mg PO BID [facility] Last Admin: 11/10/16 10:17 Dose: 500 mg Carvedilol (Coreg) 6.25 mg PO BID [facility] Last Admin: 11/10/16 10:17 Dose: 6.25 mg Collagenase (Santyl) 0 gm TOP DAILY [facility] Last Admin: 11/10/16 10:25 Dose: Not Given Ferrous Sulfate (Feosol Liq) 300 mg PO TID [facility] Last Admin: 11/10/16 13:50 Dose: 300 mg Furosemide (Lasix) 40 mg IVP DAILY [facility] Last Admin: 11/10/16 10:18 Dose: 40 mg Meropenem 250 mg/ Sodium (Chloride) 100 mls @ 100 mls/hr IVPB Q12H [facility] PRN Reason: Protocol Stop: 11/19/16 09:31 Last Admin: 11/10/16 10:19 Dose: 100 mls/hr Insulin Detemir (Levemir) 7 unit SC BID [facility] Last Admin: 11/09/16 18:56 Dose: Not Given Insulin Human Lispro (Humalog Med) 0 units SC [facility] PRN Reason: Protocol Last Admin: 11/10/16 12:46 Dose: 5 units Metoclopramide HCl (Reglan) 5 mg IVP ACHS [facility] Last Admin: 11/10/16 08:01 Dose: Not Given Multi-Ingredient Cream (Hydrocerin Cream) 0 ea TOP BID [facility] Last Admin: 11/10/16 13:47 Dose: 1 unit Multivitamins/Minerals (Therapeutic-M Tab) 1 tab PO 0800 [facility] Last Admin: 11/10/16 08:00 Dose: 1 tab Oxychlorosene Sodium (Clorpactin Wcs-90) 2 gm TOP DAILY [facility] Last Admin: 11/10/16 11:07 Dose: Not Given Pantoprazole Sodium (Protonix Ec Tab) 40 mg PO 0600,1600 [facility] Last Admin: 11/10/16 05:16 Dose: 40 mg Pregabalin (Lyrica) 100 mg PO TID [facility] Last Admin: 11/10/16 13:50 Dose: 100 mg Sodium Bicarbonate (Sodium Bicarbonate Tab) 2,600 mg PO QID [facility] Last Admin: 11/10/16 13:50 Dose: 2,600 mg Zinc Sulfate (Zinc Sulfate 220 Mg Cap) 220 mg PO DAILY [facility] Last Admin: 11/10/16 10:17 Dose: 220 mg - Labs Labs: 11/10/16 07:30 11/10/16 07:30 PT 13.3 Seconds (9.9-11.8) H 10/26/16 20:30 INR 1.23 (0.93-1.08) H 10/26/16 20:30 APTT 28.7 Seconds (23.7-30.8) 11/06/16 05:30 Attending/Attestation - Attestation I have personally seen and examined this patient.: Yes I have fully participated in the care of the patient.: Yes I have reviewed all pertinent clinical information, including history, physical exam and plan: Yes
--- NOTE | 2016-10-31 11:09 | PCM.SURG1 ---
Surgeon's Initial Post Op Note - Surgeon's Notes Surgeon: Dr. Nagi DPM Health Program Analyst: Dr. Brennan Cantu DPM PGY1 Type of Anesthesia: MAC, Local Anesthesia Administered By: Dr. Parker Pre-Operative Diagnosis: Left foot abscess, Landa grade III ulcerations x3, and osteomyelitis Operative Findings: See operative report. Materials: gelfoam. Injectables: 11cc 2% lidocaine plain pre-op Post-Operative Diagnosis: Same as above Operation Performed: Left foot incision and drainage with wound debridement Specimen/Specimens Removed: Left foot abscess Estimated Blood Loss: EBL {In ML}: 50 Blood Products Given: N/A Drains Used: No Drains Post-Op Condition: Good Date of Surgery/Procedure: 10/31/16 Time of Surgery/Procedure: 08:40
--- NOTE | 2016-10-31 12:56 | CP.PCM.PN ---
Subjective - Date & Time of Evaluation Date of Evaluation: 10/31/16 Time of Evaluation: 10:20 - Subjective Subjective: Comfortable in bed, just had surgery for her left foot, no fevers overnight. Objective - Vital Signs/Intake and Output Vital Signs (last 24 hours): Temp Pulse Resp BP Pulse Ox 98.7 F 78 18 113/73 100 10/31/16 11:30 10/31/16 11:30 10/31/16 11:30 10/31/16 11:30 10/31/16 09:56 Intake and Output: 10/31/16 10/31/16 06:59 18:59 Intake Total 375 75 Output Total 250 Balance 125 75 - Medications Medications: Current Medications Acetaminophen (Tylenol 325mg Tab) 650 mg PO Q6H PRN PRN Reason: Pain, moderate (4-7) Last Admin: 10/30/16 17:47 Dose: 650 mg Heparin Sodium (Porcine) (Heparin) 5,000 units SC Q12 JERRICA PRN Reason: Protocol Last Admin: 10/30/16 10:04 Dose: 5,000 units Meropenem 250 mg/ Sodium (Chloride) 100 mls @ 100 mls/hr IVPB Q12H JERRICA PRN Reason: Protocol Stop: 11/10/16 08:31 Last Admin: 10/31/16 10:37 Dose: 100 mls/hr Daptomycin 320 mg/ Sodium (Chloride) 100 mls @ 100 mls/hr IV QOTHERDAY JERRICA PRN Reason: Protocol Stop: 11/04/16 10:01 Last Admin: 10/30/16 12:18 Dose: 100 mls/hr Insulin Human Lispro (Humalog Med) 0 units SC ACHS JERRICA PRN Reason: Protocol Last Admin: 10/31/16 11:30 Dose: Not Given Metoclopramide HCl (Reglan) 5 mg IVP ACHS COUNTS [facility]CLUDE 234 BEDS AT THE [facility] Last Admin: 10/31/16 11:30 Dose: Not Given Oxychlorosene Sodium (Clorpactin Wcs-90) 2 gm TOP DAILY COUNTS INCLUDE 234 BEDS AT THE [facility] Last Admin: 10/31/16 10:36 Dose: Not Given Pantoprazole Sodium (Protonix Inj) 40 mg IVP Q12 COUNTS INCLUDE 234 BEDS AT THE [facility] Last Admin: 10/31/16 10:43 Dose: 40 mg - Labs Labs: 10/31/16 06:17 10/31/16 06:17 PT 13.3 Seconds (9.9-11.8) H 10/26/16 20:30 INR 1.23 (0.93-1.08) H 10/26/16 20:30 APTT 40.6 Seconds (23.7-30.8) H 10/26/16 20:30 - Constitutional Appears: Non-toxic, No Acute Distress - Head Exam Head Exam: NORMAL INSPECTION - ENT Exam ENT Exam: Mucous Membranes Moist - Neck Exam Neck Exam: absent: Lymphadenopathy, Meningismus - Respiratory Exam Respiratory Exam: Decreased Breath Sounds - Cardiovascular Exam Cardiovascular Exam: +S1, +S2 - GI/Abdominal Exam GI & Abdominal Exam: Soft. absent: Tenderness Assessment and Plan - Assessment and Plan (Free Text) Plan: Assessment Severe sepsis with acute renal failure due to acute pyelonephritis, now growing MRSA in the urine as well as left foot wound infection/abscess with MRSA, MRI showing osteomyelitis, S/P I and D today DM with diabetic neuropathy HTN history of right DVT bilateral foot ulcers Plan continue Merrem day 4 and will continue renally-adjusted IV Daptomycin pending urine cx results (showing gram positive cocci); wound cx showing MRSA; Corynebacterium is probably a contaminant reviewed MRI of left foot showing osteomyelitis - follow up cultures from the abscess - will need 6 weeks of antibiotics will get 2D echo will continue to monitor clinically
--- NOTE | 2016-10-31 16:50 | CP.PCM.PN ---
<JOSE LUIS SAMANO - Last Filed: 10/31/16 16:53> Subjective - Date & Time of Evaluation Date of Evaluation: 10/31/16 Time of Evaluation: 10:30 - Subjective Subjective: patient was seen and examined at bedside. she states that she feels much better after going to the OR for wound debridement. The pt is also curious how an infection on the skin of her leg can cause such harmful effects. The team explains in detail what is wrong with the patient's leg and the important of wound care and the management based on the cultures sent from the OR. The patient feels better and seems to be more willing to receive care. The mother is still in the room and interrupts several times but the team lets her know that the pt's health is our main concern; she is acting eccentric. The team also discusses the ppt's kidney status and defer to the renal team for the discussion. The patient does state she had a fever overnight, but denies chills , dysuria ,cp , sob, n/v/d. Objective - Vital Signs/Intake and Output Vital Signs (last 24 hours): Temp Pulse Resp BP Pulse Ox 98 F 89 19 138/82 94 L 10/31/16 15:20 10/31/16 15:20 10/31/16 15:20 10/31/16 15:20 10/31/16 12:00 Intake and Output: 10/31/16 10/31/16 06:59 18:59 Intake Total 375 400 Output Total 250 Balance 125 400 - Medications Medications: Current Medications Acetaminophen (Tylenol 325mg Tab) 650 mg PO Q6H PRN PRN Reason: Pain, moderate (4-7) Last Admin: 10/30/16 17:47 Dose: 650 mg Heparin Sodium (Porcine) (Heparin) 5,000 units SC Q12 JERRICA PRN Reason: Protocol Last Admin: 10/30/16 10:04 Dose: 5,000 units Daptomycin 320 mg/ Sodium (Chloride) 100 mls @ 100 mls/hr IV QOTHERDAY JERRICA PRN Reason: Protocol Stop: 11/04/16 10:01 Last Admin: 10/30/16 12:18 Dose: 100 mls/hr Insulin Human Lispro (Humalog Med) 0 units SC ACHS JERRICA PRN Reason: Protocol Last Admin: 10/31/16 11:30 Dose: Not Given Metoclopramide HCl (Reglan) 5 mg IVP ACHS [facility] Last Admin: 10/31/16 11:30 Dose: Not Given Oxychlorosene Sodium (Clorpactin Wcs-90) 2 gm TOP DAILY [facility] Last Admin: 10/31/16 10:36 Dose: Not Given Pantoprazole Sodium (Protonix Inj) 40 mg IVP Q12 [facility] Last Admin: 10/31/16 10:43 Dose: 40 mg - Labs Labs: 10/31/16 06:17 10/31/16 06:17 PT 13.3 Seconds (9.9-11.8) H 10/26/16 20:30 INR 1.23 (0.93-1.08) H 10/26/16 20:30 APTT 40.6 Seconds (23.7-30.8) H 10/26/16 20:30 - Additional Findings Additional findings: - Constitutional Appears: Not in Acute Distress, Unkempt, Older Than Stated Age - Head Exam Head Exam: ATRAUMATIC, NORMAL INSPECTION, NORMOCEPHALIC - Eye Exam Eye Exam: EOMI, Normal appearance, PERRL Pupil Exam: NORMAL ACCOMODATION - ENT Exam ENT Exam: Mucous Membranes Dry Additional comments: missing teeth poor dentition - Neck Exam Neck Exam: Normal Inspection - Respiratory Exam Respiratory Exam: Clear to Ausculation Bilateral, NORMAL BREATHING PATTERN. absent: Wheezes, Respiratory Distress - Cardiovascular Exam Cardiovascular Exam: RRR, +S1, +S2. absent: Murmur - GI/Abdominal Exam GI & Abdominal Exam: Soft, Normal Bowel Sounds. absent: Guarding, Tenderness, Organomegaly - Back Exam Back Exam: absent: CVA tenderness (L), CVA tenderness (R) - Neurological Exam Neurological Exam: Alert, Awake, Oriented x3 - Psychiatric Exam Psychiatric exam: Normal Mood - Skin Additional comments: L ankle wrapped in post-op clean dressing (c/d/i) L foot w/ 2 toe amputations - Additional Findings Additional findings: HD catheter in place (RIJ) Assessment and Plan - Assessment and Plan (Free Text) Assessment: 36yo F PMH DM, HTN, HLD, RLE dvt and LLE ulcer who presents w/ Septic shock 2/2 pyelonephritis 2/2 untreated UTI. EMMETT still present, improving on dialysis. Metabolic acidosis resolved. Also found to be anemic, likely due to chronic disease (diabetes). Found to have UTI and LLE ulcer growing MRSA. MRI shows osteomyelitis of L calcaneus and diffuse plantar proximal aspect of L foot. Pt went to OR today for debridement. Plan: 1. Septic Shock likely 2/2 osteomyelitis vs pyelo vs untreated UTI - pt clinically improving, shock has resolved off pressors - Sepsis criteria still met - Daptomycin (d2) - s/p Merrem (d5) - ID consulted, recs appreciated - L foot wound cx growing MRSA and corynebacterium - Ucx growing MRSA - mild fever overnight, tachycardia resolved, and leukocytosis still present - continue to monitor - pain mgmt: morphine 1q6 PRN - Reglan ACHS for n/v 2. LLE ulcer - OR this morning for I&D - wound care per podiatry - L Foot cx growing MRSA and corynbacterium - MRI L foot shows osteomyelitis of L calcaneus and diffuse plantar proximal aspect of L foot. - pt was educated on the severity of her condition today by the medical team, ID and podiatry. Pt seems to be better understanding today. - f/u sensitivities - podiatry consulted, recs appreciated 3. EMMETT on CKD vs worsening CKD - Cr currently 4.3, improves w/ dialysis (2 sessions so far) - Nephrology consulted, recs appreciated - RIJ in place 4. Metabolic acidosis w/ high AG likely 2/2 uremia - continue to monitor for resp distress or worsening renal fxn - continue dialysis 5. Anemia likely 2/2 chronic dz - transfused 1u pRBC today - microcytic hypochromic anemia - likely due to chronic kidney 2/2 uncontrolled DM2 6. Hx DM - CCD - ISS low - A1C 8.4 - avoid hypoglycemic episodes CCD Heparin/PTX Patient was seen, evaluated and discussed with attending, Dr. Mayank Samano PGY1 <Laquita Talley - Last Filed: 11/01/16 08:10> Objective - Vital Signs/Intake and Output Vital Signs (last 24 hours): Temp Pulse Resp BP Pulse Ox 97.6 F 104 H 17 141/87 96 11/01/16 06:25 11/01/16 06:00 11/01/16 06:00 11/01/16 06:00 11/01/16 06:00 - Medications Medications: Current Medications Acetaminophen (Tylenol 325mg Tab) 650 mg PO Q6H PRN PRN Reason: Pain, moderate (4-7) Last Admin: 10/30/16 17:47 Dose: 650 mg Heparin Sodium (Porcine) (Heparin) 5,000 units SC Q12 JERRICA PRN Reason: Protocol Last Admin: 10/30/16 10:04 Dose: 5,000 units Daptomycin 320 mg/ Sodium (Chloride) 100 mls @ 100 mls/hr IV QOTHERDAY JERRICA PRN Reason: Protocol Stop: 11/04/16 10:01 Last Admin: 10/30/16 12:18 Dose: 100 mls/hr Insulin Detemir (Levemir) 5 unit SC HS JERRICA Insulin Human Lispro (Humalog Med) 0 units SC ACHS JERRICA PRN Reason: Protocol Last Admin: 10/31/16 22:12 Dose: Not Given Metoclopramide HCl (Reglan) 5 mg IVP ACHS [facility] Last Admin: 10/31/16 21:28 Dose: 5 mg Oxychlorosene Sodium (Clorpactin Wcs-90) 2 gm TOP DAILY [facility] Last Admin: 10/31/16 10:36 Dose: Not Given Pantoprazole Sodium (Protonix Inj) 40 mg IVP Q12 [facility] Last Admin: 10/31/16 21:28 Dose: 40 mg - Labs Labs: 11/01/16 06:10 11/01/16 06:10 PT 13.3 Seconds (9.9-11.8) H 10/26/16 20:30 INR 1.23 (0.93-1.08) H 10/26/16 20:30 APTT 40.6 Seconds (23.7-30.8) H 10/26/16 20:30 Attending/Attestation - Attestation I have personally seen and examined this patient.: Yes I have fully participated in the care of the patient.: Yes I have reviewed all pertinent clinical information, including history, physical exam and plan: Yes Notes (Text): 11/01/16 08:06 attending note; Patient seen and examined with resident. s/p debridement. Patient states that she is feeling much better. Wound is clean. No bleeding noted. Case discussed with podiatry resident. Patient had minimal amount of bleeding during surgery. We'll transfuse 1 unit PRBC today. Patient is a 36 year old female with history of IDDM, HTN, dyslipidemia, RLE DVT , wheel chair bound, 2 amputated toes of left leg and chronic LE ulcer who presented with severe sepsis secondary to acute pyelonephritis, Acute on chronic kidney disease, AGMA, electrolyte abnormalities, anemia and hypotension. BP has improved and she is now off pressors. Left foot wound culture is growing corynebacterium/MRSA. currently on daptomycin. Anemia; multifactorial. Patient never had workup done as outpatient for chronic anemia. Patient will get 1 unit PRBC today. Acute on chronic Disease; patient will get hemodialysis today. Case discussed with msw. Possible need for long-term dialysis. May continue daptomycin with dialysis. Diabetes; hypoglycemia resolved. Continue Regular Insulin sliding scale. we will Add Levemir if fingerstick is elevated. Case discussed with counseling case manager for discharge planning. Upon discharge patient will follow up with Dr Bunch.
[2016-10-31] MEDS ORDERED: Darbepoetin Alfa 40 mcg/ml Inj SC ONE (17:09)
--- NOTE | 2016-10-31 18:06 | PN ---
SUBJECTIVE: A 36-year-old female with past medical history of diabetes, CKD, chronically bed-bound, admitted with severe sepsis and acute renal failure. Nephrology following for the same. The patient reports urinating well. Had Townsend placed yesterday evening to document I's and O's. Reports eating well. Denies any shortness of breath. VITAL SIGNS: This morning blood pressure 131/81, heart rate 93, respirations 16, temperature 98.8, O2 saturation 96% on 3 L O2 via nasal cannula. PHYSICAL EXAMINATION: GENERAL: No distress. Conversing coherently in full sentences. HEENT: Moist mucous membranes. Non-icteric. RESPIRATORY: Lungs clear to auscultation bilaterally. No rales, no rhonchi, no wheezes. HEART: S1 and S2 normal. No murmurs. No gallops or rubs. ABDOMEN: Soft, nontender, nondistended. Townsend in place. EXTREMITIES: No significant leg edema. SKIN: Warm, no cyanosis. LABORATORY DATA: This morning, CBC; WBC 23.8, hemoglobin 8.1, hematocrit 24.2, platelets 240. Chemistry panel; sodium 128, potassium 4.3, chloride 93, bicarb 23, BUN 55, creatinine 4.3, glucose 152, calcium 7.9, phosphorus 4.4, magnesium 1.6, albumin 2.5. ASSESSMENT AND PLAN: 1. Acute renal failure clinically consistent with acute tubular necrosis in the setting of severe sepsis and pyelonephritis, oliguric renal failure initiated on acute hemodialysis earlier this week. Has been off dialysis for the last 2 days. Serum creatinine rising from 3.6 yesterday to 4.3, which for the patient's relatively small body mass, is a significant rise and coupled with her continued oliguric status (made only 300 mL urine yesterday), is indicative of continued need for hemodialysis support. Dialyzed today over 3 hours on 3K/2.5 calcium, 34 bicarb, dialysate with ultrafiltration goal of net 1 L. 2. Chronic kidney disease stage IV, per labs from approximately 1 month ago, the patient with massive nephrotic range proteinuria of approximately 30 g on urine protein to creatinine ratio compliments negative, does have hepatitis C antibody reactivity. However, in the setting of normal components, hepatitis C related membranoproliferative glomerulonephritis is highly unlikely. Overall, chronic kidney disease is likely due to diabetic nephropathy. Question is whether the patient warrants biopsy to look for other causes especially with massive proteinuria. Currently, the patient has acute infections to deal with and we would not be commencing with any immunosuppressive regimen at this time anyway. Therefore, we will hold off on any renal biopsy for now. 3. Avoid nephrotoxic medicines including NSAIDs that can compromise GFR. 4. Anemia likely due to chronic kidney disease. The patient set to receive another unit of blood today on hemodialysis, giving dose of Aranesp 40 mcg today. 5. Sepsis. The patient with methicillin-resistant Staphylococcus aureus from left foot wound, urine growing gram-positive cocci (no culture insensitivity available, Infections Disease is following). The patient did present with acute pyelonephritis and therefore, any urinary tract infection needs to be treated. 6. The patient is currently on meropenem 250 mg q. 12 hours and Daptomycin every other day. Both correctly dosed for hemodialysis and need to be redosed after dialysis. 7. Should avoid Gentamicin given acute renal failure. 8. 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 Should avoid PICC line and should instead obtain tunneled IJ catheter that can be used for IV infusions. Mick Preston MD
--- NOTE | 2016-10-31 18:49 | RAD ---
HISTORY: rule out pneumonia COMPARISON: 10/27/2016 FINDINGS: The right IJV line terminates at the cavoatrial junction. LUNGS: The lungs are well inflated. There is persistent pulmonary venous congestion. No focal consolidation. There is bibasilar atelectasis. PLEURA: No significant pleural effusion identified, no pneumothorax apparent. CARDIOVASCULAR: There is mild cardiomegaly. OSSEOUS STRUCTURES: No significant abnormalities. VISUALIZED UPPER ABDOMEN: Normal. OTHER FINDINGS: None. IMPRESSION: Mild cardiomegaly and persistent pulmonary venous congestion. No lobar pneumonia.
[2016-11-01 06:20] LABS: BASO # 0.01 K/mm3 (0.0-2.0); EOS # 0.3 (0.0-0.7); EOS % 1.6 % (1.5-5.0); GRAN # 17.87 (1.4-6.5); GRAN % 88.9 % (50.0-68.0); HEMATOCRIT 24.3 % (36.0-48.0); LYMPH # 0.6 (1.2-3.4); LYMPH % 3.1 % (22.0-35.0); MEAN CELL VOLUME 83.2 fl (80.0-105.0); MEAN CORPUSCULAR HEMOGLOBIN 27.4 pg (25.0-35.0); MEAN CORPUSCULAR HGB CONC 32.9 g/dl (31.0-37.0); MONO # 1.3 (0.1-0.6); MONO % 6.4 % (1.0-6.0); RED CELL DISTRIBUTION WIDTH 15.4 % (11.5-14.5); WHITE BLOOD COUNT 20.1 10^3/ul (4.5-11.0)
[2016-11-01 06:50] LABS: ALB/GLOB RATIO 0.6 (1.1-1.8); BILIRUBIN,TOTAL 0.6 mg/dL (0.2-1.3); CALCIUM 7.5 mg/dL (8.4-10.5); MAGNESIUM 1.9 mg/dL (1.7-2.2); PHOSPHOROUS 3.4 mg/dL (2.5-4.5); POTASSIUM 3.8 mmol/L (3.6-5.0); TOTAL PROTEIN 6.8 g/dL (5.8-8.3)
[2016-11-01] MEDS: Insulin Lispro (humaLOG) MEDIUM Coverage SC SCH ×4 (08:28→22:21)
--- NOTE | 2016-11-01 08:37 | CP.PCM.PN ---
Subjective - Date & Time of Evaluation Date of Evaluation: 11/01/16 Time of Evaluation: 08:34 - Subjective Subjective: PGY-[address] Preston's Nephrology service: Pt seen and examined at bedside. Nursing reports no acute events overnight. Pt reports I&D yesterday, but denies pain at this time. Explained to patient will watch kidney function tomorrow, and will assess next dialysis treatment. Objective - Vital Signs/Intake and Output Vital Signs (last 24 hours): Temp Pulse Resp BP Pulse Ox 97.6 F 104 H 17 141/87 96 11/01/16 06:25 11/01/16 06:00 11/01/16 06:00 11/01/16 06:00 11/01/16 06:00 - Medications Medications: Current Medications Acetaminophen (Tylenol 325mg Tab) 650 mg PO Q6H PRN PRN Reason: Pain, moderate (4-7) Last Admin: 10/30/16 17:47 Dose: 650 mg Ferrous Sulfate (Feosol Liq) 300 mg PO TID JERRICA Daptomycin 320 mg/ Sodium (Chloride) 100 mls @ 100 mls/hr IV QOTHERDAY JERRICA PRN Reason: Protocol Stop: 11/04/16 10:01 Last Admin: 10/30/16 12:18 Dose: 100 mls/hr Insulin Detemir (Levemir) 5 unit SC HS JERRICA Insulin Human Lispro (Humalog Med) 0 units SC ACHS JERRICA PRN Reason: Protocol Last Admin: 11/01/16 08:28 Dose: 8 units Metoclopramide HCl (Reglan) 5 mg IVP ACHS [facility] Last Admin: 10/31/16 21:28 Dose: 5 mg Oxychlorosene Sodium (Clorpactin Wcs-90) 2 gm TOP DAILY JERRICA Last Admin: 10/31/16 10:36 Dose: Not Given Pantoprazole Sodium (Protonix Inj) 40 mg IVP Q12 JERRICA Last Admin: 10/31/16 21:28 Dose: 40 mg - Labs Labs: 11/01/16 06:10 11/01/16 06:10 PT 13.3 Seconds (9.9-11.8) H 10/26/16 20:30 INR 1.23 (0.93-1.08) H 10/26/16 20:30 APTT 40.6 Seconds (23.7-30.8) H 10/26/16 20:30 - Constitutional Appears: Non-toxic, No Acute Distress, Chronically Ill - Head Exam Head Exam: ATRAUMATIC, NORMAL INSPECTION - Eye Exam Eye Exam: EOMI, Normal appearance Pupil Exam: PERRL - ENT Exam ENT Exam: Mucous Membranes Dry - Neck Exam Neck Exam: Normal Inspection - Respiratory Exam Respiratory Exam: Clear to Ausculation Bilateral, NORMAL BREATHING PATTERN - Cardiovascular Exam Cardiovascular Exam: REGULAR RHYTHM, +S1, +S2 - GI/Abdominal Exam GI & Abdominal Exam: Soft, Normal Bowel Sounds. absent: Distended - Extremities Exam Additional comments: Left ankle wrapped, c/d/i Amputations on left foot, 2 toes - Back Exam Back Exam: absent: CVA tenderness (L), CVA tenderness (R) - Neurological Exam Neurological Exam: Alert, Awake, Oriented x3 Assessment and Plan - Assessment and Plan (Free Text) Plan: (1) Acute renal failure Assessment & Plan: Improved; serum creatinine did rise slightly and unable to quantify urine output after sorenson was removed (patient now refusing sorenson re-insertion) not yet ready for discharge home; Status: Acute (2) CKD (chronic kidney disease) Assessment & Plan: Likely advanced CKD with massive proteinuria in the setting of DM; - random creatinine 16, sodium 130 - Microalbumin > 190 - urine protein 24 hr 513 -checking 24 hr UPEP; awaiting free light chains, SPEP; Status: Acute (3) Anemia Assessment & Plan: Hgb stable after prbc transfusion Continue aranesp 40 mcg; Status: Acute (4) Metabolic acidosis Assessment & Plan: Improved; monitor; may need PO bicarb replacement chronically; Status: Acute (5) Sepsis Assessment & Plan: Patient with osteomyelitis involving L foot; in light of future HD needs, need to avoid PICC line; consider tunneled IJ port; Status: Acute
[2016-11-01] MEDS: Ferrous Sulfate 300 mg/5 mL Liq UD PO SCH ×3 (10:23→17:53)
[2016-11-01 11:03] LABS: URINE BILIRUBIN NEGATIVE (NEGATIVE); URINE BLOOD LARGE (NEGATIVE); URINE GLUCOSE (UA) 100 mg/dL (NEGATIVE); URINE KETONE NEGATIVE (NEGATIVE); URINE LEUKOCYTE ESTERASE MODERATE Leu/uL (NEGATIVE); URINE PROTEIN 100 mg/dL (<30 mg/dL); URINE UROBILINOGEN 0.2 E.U./dL (<1 E.U./dL)
[2016-11-01 11:07] LABS: URINE COLOR LIGHT YELLOW (YELLOW)
[2016-11-01 11:08] LABS: URINE APPEARANCE CLOUDY (CLEAR)
[2016-11-01 11:27] LABS: URINE RBC TNTC /hpf (0-2); URINE WBC TNTC /hpf (0-6)
[2016-11-01 11:28] LABS: URINE BACTERIA MANY (NEG)
[2016-11-01] MEDS: Oxychlorosene Topical 2 gm Packet TOP SCH (12:57)
--- NOTE | 2016-11-01 14:05 | CP.PCM.PN ---
<Brennan Cantu - Last Filed: 11/01/16 13:59> Subjective - Date & Time of Evaluation Date of Evaluation: 11/01/16 Time of Evaluation: 14:01 - Subjective Subjective: Podiatry Progress Note - Dr. Craven 36 year old female patient PMHx IDDM, renal failure, sepsis, metabolic acidosis , UTI, CKD, anemia seen at bedside POD#1 left foot incision and drainage with wound debridement. Patient seen resting comfortably, AAOx3 and NAD. Patient is accompanied by mother at bedside. Patient states she is feeling better today. Patient admits to feeling sensation in her left heel - slight soreness s/p surgery. Patient denies N/V/F/D/C/SOB/calf pain. No other pedal complaints at this time. Objective - Vital Signs/Intake and Output Vital Signs (last 24 hours): Temp Pulse Resp BP Pulse Ox 99.7 F H 100 H 18 136/91 H 96 11/01/16 12:00 11/01/16 12:00 11/01/16 12:00 11/01/16 12:00 11/01/16 06:00 - Medications Medications: Current Medications Acetaminophen (Tylenol 325mg Tab) 650 mg PO Q6H PRN PRN Reason: Pain, moderate (4-7) Last Admin: 10/30/16 17:47 Dose: 650 mg Ascorbic Acid (Vitamin C 500 Mg Tab) 500 mg PO BID ON LICENSE OF [facility] Last Admin: 11/01/16 10:23 Dose: 500 mg Ferrous Sulfate (Feosol Liq) 300 mg PO TID ON LICENSE OF [facility] Last Admin: 11/01/16 13:00 Dose: 300 mg Daptomycin 320 mg/ Sodium (Chloride) 100 mls @ 100 mls/hr IV QOTHERDAY ON LICENSE OF [facility] PRN Reason: Protocol Stop: 11/04/16 10:01 Last Admin: 11/01/16 10:23 Dose: 100 mls/hr Insulin Detemir (Levemir) 5 unit SC HS ON LICENSE OF [facility] Insulin Human Lispro (Humalog Med) 0 units SC ACHS ON LICENSE OF [facility] PRN Reason: Protocol Last Admin: 11/01/16 12:57 Dose: 3 units Metoclopramide HCl (Reglan) 5 mg IVP ACHS ON LICENSE OF [facility] Last Admin: 11/01/16 12:54 Dose: Not Given Multivitamins/Minerals (Therapeutic-M Tab) 1 tab PO 0800 ON LICENSE OF [facility] Oxychlorosene Sodium (Clorpactin Wcs-90) 2 gm TOP DAILY ON LICENSE OF [facility] Last Admin: 11/01/16 12:57 Dose: Not Given Pantoprazole Sodium (Protonix Inj) 40 mg IVP Q12 ON LICENSE OF [facility] Last Admin: 11/01/16 10:23 Dose: 40 mg Zinc Sulfate (Zinc Sulfate 220 Mg Cap) 220 mg PO DAILY ON [facility] OF [facility] Last Admin: 11/01/16 10:23 Dose: 220 mg - Labs Labs: 11/01/16 06:10 11/01/16 06:10 PT 13.3 Seconds (9.9-11.8) H 10/26/16 20:30 INR 1.23 (0.93-1.08) H 10/26/16 20:30 APTT 40.6 Seconds (23.7-30.8) H 10/26/16 20:30 - Constitutional Appears: Well, Non-toxic, No Acute Distress - Extremities Exam Additional comments: VASC: DP and PT pulses palpable 2/4 b/l. TG WNL b/l. Edema noted to left foot. NEURO: Gross sensation absent bilaterally. DERM: Gelfoam present in plantar calcaneal wounds. Ulceration #1 noted to left medial heel measuring approximately 3 x 3 cm with a mixed fibrogranular base and mild sanguinous drainage noted however no active bleeding at this visit. Ulceration #2 located distal to ulcer #1 measuring approximately 0.6 x 0.5 cm with a mixed fibrogranular base and mild sanguinous drainage noted; no active bleeding noted. It is noted that a linear incision was made during sx opening the communication between ulcers #1 and #2. Ulceration noted to the posterior aspect of left heel with mixed fibrogranular base, also contiguous with ulcers # 1 and #2. All ulcerations +probe to bone, -malodor, -ascending erythema, - purulence. Nails to right foot appear thickened, elongated, and dystrophic with the presence of subungual debris. ORTHO: No pain on palpation noted to foot b/l. - Neurological Exam Neurological Exam: Alert, Awake, Oriented x3 - Psychiatric Exam Psychiatric exam: Normal Affect, Normal Mood Assessment and Plan - Assessment and Plan (Free Text) Assessment: 36 year old female 36 year old female PMHx IDDM, renal failure, sepsis, metabolic acidosis, UTI, CKD, anemia POD#1 left foot incision and drainage with wound debridement Plan: Patient seen and evaluated at bedside with attending, Dr. Craven Chart, vitals, labs reviewed = temp mildly increased @ 99.7 (Tmax 100.0); WBC increased @ 20.1 however trending downwards ( yesterday, 10/31 @ 23.8; 10/30 @ 25.7) Left foot dressed with 4x4s, ABDs, and kerlix. Gelfoam remains in plantar wounds ; will remove tomorrow Left foot intra-op wound culture (prelim) - s. aureus; awaiting final report Nails debrided in thickness and length without incident Patient continues to refuse multipodus boots Per ID, continue Merrem (day 6) and renally-adjusted IV Daptomycin (day 3); will need 6 weeks of abx Podiatry will continue to follow patient while in house <Logan Craven - Last Filed: 11/02/16 08:21> Objective - Vital Signs/Intake and Output Vital Signs (last 24 hours): Temp Pulse Resp BP Pulse Ox 99.3 F 87 21 141/86 100 11/02/16 06:00 11/02/16 06:00 11/02/16 06:00 11/02/16 06:00 11/02/16 06:00 - Medications Medications: Current Medications Acetaminophen (Tylenol 325mg Tab) 650 mg PO Q6H PRN PRN Reason: Pain, moderate (4-7) Last Admin: 11/01/16 17:49 Dose: 650 mg Ascorbic Acid (Vitamin C 500 Mg Tab) 500 mg PO BID ON [facility] OF [facility] Last Admin: 11/01/16 17:49 Dose: 500 mg Ferrous Sulfate (Feosol Liq) 300 mg PO TID ON LICENSE OF [facility] Last Admin: 11/01/16 17:53 Dose: 300 mg Daptomycin 320 mg/ Sodium (Chloride) 100 mls @ 100 mls/hr IV QOTHERDAY ON LICENSE OF [facility] PRN Reason: Protocol Stop: 11/04/16 10:01 Last Admin: 11/01/16 10:23 Dose: 100 mls/hr Insulin Detemir (Levemir) 5 unit SC HS ON LICENSE OF [facility] Last Admin: 11/01/16 22:21 Dose: 5 unit Insulin Human Lispro (Humalog Med) 0 units SC ACHS ON LICENSE OF [facility] PRN Reason: Protocol Last Admin: 11/01/16 22:21 Dose: 1 units Metoclopramide HCl (Reglan) 5 mg IVP ACHS [facility] Last Admin: 11/01/16 22:31 Dose: Not Given Multivitamins/Minerals (Therapeutic-M Tab) 1 tab PO 0800 [facility] Oxychlorosene Sodium (Clorpactin Wcs-90) 2 gm TOP DAILY [facility] Last Admin: 11/01/16 12:57 Dose: Not Given Pantoprazole Sodium (Protonix Ec Tab) 40 mg PO 0600,1600 [facility] Last Admin: 11/02/16 06:11 Dose: 40 mg Pregabalin (Lyrica) 100 mg PO TID [facility] Last Admin: 11/01/16 17:50 Dose: 100 mg Zinc Sulfate (Zinc Sulfate 220 Mg Cap) 220 mg PO DAILY ON [facility] OF [facility] Last Admin: 11/01/16 10:23 Dose: 220 mg - Labs Labs: 11/02/16 07:20 11/02/16 07:20 PT 13.3 Seconds (9.9-11.8) H 10/26/16 20:30 INR 1.23 (0.93-1.08) H 10/26/16 20:30 APTT 40.6 Seconds (23.7-30.8) H 10/26/16 20:30 Attending/Attestation - Attestation I have personally seen and examined this patient.: Yes I have fully participated in the care of the patient.: Yes I have reviewed all pertinent clinical information, including history, physical exam and plan: Yes
--- NOTE | 2016-11-01 15:35 | CP.PCM.PN ---
Subjective - Date & Time of Evaluation Date of Evaluation: 11/01/16 Time of Evaluation: 10:15 - Subjective Subjective: Comfortable in bed, afebrile, less pain in the left foot, no back pain, no diarrhea. Objective - Vital Signs/Intake and Output Vital Signs (last 24 hours): Temp Pulse Resp BP Pulse Ox 100.0 F H 104 H 17 141/87 96 11/01/16 06:00 11/01/16 06:00 11/01/16 06:00 11/01/16 06:00 11/01/16 06:00 Intake and Output: 10/31/16 11/01/16 18:59 06:59 Intake Total 400 Balance 400 - Medications Medications: Current Medications Acetaminophen (Tylenol 325mg Tab) 650 mg PO Q6H PRN PRN Reason: Pain, moderate (4-7) Last Admin: 10/30/16 17:47 Dose: 650 mg Heparin Sodium (Porcine) (Heparin) 5,000 units SC Q12 [facility] PRN Reason: Protocol Last Admin: 10/30/16 10:04 Dose: 5,000 units Daptomycin 320 mg/ Sodium (Chloride) 100 mls @ 100 mls/hr IV QOTHERDAY [facility] PRN Reason: Protocol Stop: 11/04/16 10:01 Last Admin: 10/30/16 12:18 Dose: 100 mls/hr Insulin Human Lispro (Humalog Med) 0 units SC ACHS [facility] PRN Reason: Protocol Last Admin: 10/31/16 22:12 Dose: Not Given Metoclopramide HCl (Reglan) 5 mg IVP ACHS [facility] Last Admin: 10/31/16 21:28 Dose: 5 mg Oxychlorosene Sodium (Clorpactin Wcs-90) 2 gm TOP DAILY [facility] Last Admin: 10/31/16 10:36 Dose: Not Given Pantoprazole Sodium (Protonix Inj) 40 mg IVP Q12 [facility] Last Admin: 10/31/16 21:28 Dose: 40 mg - Labs Labs: 11/01/16 06:10 10/31/16 06:17 PT 13.3 Seconds (9.9-11.8) H 10/26/16 20:30 INR 1.23 (0.93-1.08) H 10/26/16 20:30 APTT 40.6 Seconds (23.7-30.8) H 10/26/16 20:30 - Constitutional Appears: Non-toxic, No Acute Distress - Head Exam Head Exam: NORMAL INSPECTION - ENT Exam ENT Exam: Mucous Membranes Moist - Neck Exam Neck Exam: absent: Lymphadenopathy, Meningismus - Respiratory Exam Respiratory Exam: Decreased Breath Sounds - Cardiovascular Exam Cardiovascular Exam: +S1, +S2 - GI/Abdominal Exam GI & Abdominal Exam: Soft. absent: Tenderness - Extremities Exam Additional comments: left foot with dressings in place Assessment and Plan - Assessment and Plan (Free Text) Plan: Assessment Severe sepsis with acute renal failure due to acute pyelonephritis, now growing MRSA in the urine as well as left foot wound infection/abscess with MRSA, MRI showing osteomyelitis, S/P I and D POD #1 DM with diabetic neuropathy HTN history of right DVT bilateral foot ulcers Plan continue renally-adjusted IV Daptomycin; wound cx showing MRSA; Corynebacterium is probably a contaminant reviewed MRI of left foot showing osteomyelitis - follow up cultures from the abscess (taken from yesterday) - will need 6 weeks of antibiotics follow up 2D echo will continue to monitor clinically
--- NOTE | 2016-11-01 16:41 | CP.PCM.PN ---
<JOSE LUIS SAMANO - Last Filed: 11/01/16 16:37> Subjective - Date & Time of Evaluation Date of Evaluation: 11/01/16 Time of Evaluation: 09:45 - Subjective Subjective: patient was seen and examined at bedside. denies cp, sob, f/c, n/v/d/, dysuria. pt offers no complaints or acute overnight events. the possibility of depending on dialysis is discussed with her and she is understanding. Objective - Vital Signs/Intake and Output Vital Signs (last 24 hours): Temp Pulse Resp BP Pulse Ox 99.7 F H 119 H 18 136/91 H 96 11/01/16 12:00 11/01/16 14:00 11/01/16 12:00 11/01/16 12:00 11/01/16 06:00 - Medications Medications: Current Medications Acetaminophen (Tylenol 325mg Tab) 650 mg PO Q6H PRN PRN Reason: Pain, moderate (4-7) Last Admin: 10/30/16 17:47 Dose: 650 mg Ascorbic Acid (Vitamin C 500 Mg Tab) 500 mg PO BID [facility] Last Admin: 11/01/16 10:23 Dose: 500 mg Ferrous Sulfate (Feosol Liq) 300 mg PO TID [facility] Last Admin: 11/01/16 13:00 Dose: 300 mg Daptomycin 320 mg/ Sodium (Chloride) 100 mls @ 100 mls/hr IV QOTHERDAY [facility] PRN Reason: Protocol Stop: 11/04/16 10:01 Last Admin: 11/01/16 10:23 Dose: 100 mls/hr Insulin Detemir (Levemir) 5 unit SC HS [facility] Insulin Human Lispro (Humalog Med) 0 units SC ACHS [facility] PRN Reason: Protocol Last Admin: 11/01/16 12:57 Dose: 3 units Metoclopramide HCl (Reglan) 5 mg IVP ACHS [facility] Last Admin: 11/01/16 12:54 Dose: Not Given Multivitamins/Minerals (Therapeutic-M Tab) 1 tab PO 0800 [facility] Oxychlorosene Sodium (Clorpactin Wcs-90) 2 gm TOP DAILY [facility] Last Admin: 11/01/16 12:57 Dose: Not Given Pantoprazole Sodium (Protonix Inj) 40 mg IVP Q12 [facility] Last Admin: 11/01/16 10:23 Dose: 40 mg Zinc Sulfate (Zinc Sulfate 220 Mg Cap) 220 mg PO DAILY [facility] Last Admin: 11/01/16 10:23 Dose: 220 mg - Labs Labs: 11/01/16 06:10 11/01/16 06:10 PT 13.3 Seconds (9.9-11.8) H 10/26/16 20:30 INR 1.23 (0.93-1.08) H 10/26/16 20:30 APTT 40.6 Seconds (23.7-30.8) H 10/26/16 20:30 - Additional Findings Additional findings: - Constitutional Appears: Not in Acute Distress, Unkempt, Older Than Stated Age - Head Exam Head Exam: ATRAUMATIC, NORMAL INSPECTION, NORMOCEPHALIC - Eye Exam Eye Exam: EOMI, Normal appearance, PERRL Pupil Exam: NORMAL ACCOMODATION - ENT Exam ENT Exam: Mucous Membranes Dry Additional comments: missing teeth poor dentition - Neck Exam Neck Exam: Normal Inspection - Respiratory Exam Respiratory Exam: Clear to Ausculation Bilateral, NORMAL BREATHING PATTERN. absent: Wheezes, Respiratory Distress - Cardiovascular Exam Cardiovascular Exam: RRR, +S1, +S2. absent: Murmur - GI/Abdominal Exam GI & Abdominal Exam: Soft, Normal Bowel Sounds. absent: Guarding, Tenderness, Organomegaly - Back Exam Back Exam: absent: CVA tenderness (L), CVA tenderness (R) - Neurological Exam Neurological Exam: Alert, Awake, Oriented x3 - Psychiatric Exam Psychiatric exam: Normal Mood - Skin Additional comments: L ankle wrapped in clean dressing (c/d/i) L foot w/ 2 toe amputations - Additional Findings Additional findings: HD catheter in place (RIJ) Assessment and Plan - Assessment and Plan (Free Text) Assessment: 36yo F PMH DM, HTN, HLD, RLE dvt and LLE ulcer who presents w/ Septic shock 2/2 pyelonephritis 2/2 untreated UTI. EMMETT still present, improving on dialysis. Metabolic acidosis resolved. Also found to be anemic, likely due to chronic disease (diabetes). Found to have UTI and LLE ulcer growing MRSA. MRI shows osteomyelitis of L calcaneus and diffuse plantar proximal aspect of L foot. s/p Merrem x5d. POD 1 s/p debridement. Plan: 1. Septic Shock likely 2/2 osteomyelitis vs pyelo vs untreated UTI - pt clinically improving, shock has resolved off pressors - Sepsis criteria still met - Daptomycin (d3) - ID consulted, recs appreciated - L foot wound cx growing MRSA and corynebacterium - Ucx growing MRSA - tachycardia and leukocytosis still present, but improving - continue to monitor - pain mgmt: morphine 1q6 PRN - Reglan ACHS for n/v 2. LLE ulcer - s/p I&D POD 1 - wound care per podiatry - L Foot cx growing MRSA and corynbacterium - MRI L foot showed osteomyelitis of L calcaneus and diffuse plantar proximal aspect of L foot. - f/u sensitivities - podiatry consulted, recs appreciated 3. EMMETT on CKD vs worsening CKD - Cr currently 2.9, improves w/ dialysis (3 sessions so far; last one yesterday) - Nephrology consulted, recs appreciated concerning long-term dialysis - RIJ in place 4. Anemia likely 2/2 chronic dz - s/p 4u pRBC transfused - microcytic hypochromic anemia - likely due to chronic kidney 2/2 uncontrolled DM2 - feosol 5. Hx DM - CCD - ISS low - A1C 8.4 - Levemir 5u HS - Lyrica 100 TID CCD Heparin/PTX Patient was seen, evaluated and discussed with attending, Dr. Mayank Samano PGY1 <Laquita Talley - Last Filed: 11/01/16 18:03> Objective - Vital Signs/Intake and Output Vital Signs (last 24 hours): Temp Pulse Resp BP Pulse Ox 99.7 F H 119 H 18 136/91 H 96 11/01/16 12:00 11/01/16 14:00 11/01/16 12:00 11/01/16 12:00 11/01/16 06:00 - Medications Medications: Current Medications Acetaminophen (Tylenol 325mg Tab) 650 mg PO Q6H PRN PRN Reason: Pain, moderate (4-7) Last Admin: 11/01/16 17:49 Dose: 650 mg Ascorbic Acid (Vitamin C 500 Mg Tab) 500 mg PO BID [facility] Last Admin: 11/01/16 17:49 Dose: 500 mg Ferrous Sulfate (Feosol Liq) 300 mg PO TID [facility] Last Admin: 11/01/16 17:53 Dose: 300 mg Daptomycin 320 mg/ Sodium (Chloride) 100 mls @ 100 mls/hr IV QOTHERDAY [facility] PRN Reason: Protocol Stop: 11/04/16 10:01 Last Admin: 11/01/16 10:23 Dose: 100 mls/hr Insulin Detemir (Levemir) 5 unit SC HS [facility] Insulin Human Lispro (Humalog Med) 0 units SC ACHS [facility] PRN Reason: Protocol Last Admin: 11/01/16 16:38 Dose: Not Given Metoclopramide HCl (Reglan) 5 mg IVP ACHS [facility] Last Admin: 11/01/16 16:39 Dose: Not Given Multivitamins/Minerals (Therapeutic-M Tab) 1 tab PO 0800 [facility] Oxychlorosene Sodium (Clorpactin Wcs-90) 2 gm TOP DAILY [facility] Last Admin: 11/01/16 12:57 Dose: Not Given Pantoprazole Sodium (Protonix Inj) 40 mg IVP Q12 [facility] Last Admin: 11/01/16 10:23 Dose: 40 mg Pregabalin (Lyrica) 100 mg PO TID [facility] Last Admin: 11/01/16 17:50 Dose: 100 mg Zinc Sulfate (Zinc Sulfate 220 Mg Cap) 220 mg PO DAILY [facility] Last Admin: 11/01/16 10:23 Dose: 220 mg - Labs Labs: 11/01/16 06:10 11/01/16 06:10 PT 13.3 Seconds (9.9-11.8) H 10/26/16 20:30 INR 1.23 (0.93-1.08) H 10/26/16 20:30 APTT 40.6 Seconds (23.7-30.8) H 10/26/16 20:30 Attending/Attestation - Attestation I have personally seen and examined this patient.: Yes I have fully participated in the care of the patient.: Yes I have reviewed all pertinent clinical information, including history, physical exam and plan: Yes Notes (Text): 11/01/16 18:01 attending note; Patient seen and examined with resident. Patient is a 36 year old female with history of IDDM, HTN, dyslipidemia, RLE DVT , wheel chair bound, 2 amputated toes of left leg and chronic LE ulcer who presented with severe sepsis secondary to acute pyelonephritis, Acute on chronic kidney disease, AGMA, electrolyte abnormalities, anemia and hypotension. Left foot wound culture is growing corynebacterium/MRSA. currently on daptomycin. status post incision and drainage. Dressing site is clean. Follow-up with special procedure tech closely. Anemia; multifactorial. Patient never had workup done as outpatient for chronic anemia. Patient will get 1 unit PRBC yesterday. Acute on chronic Disease; patient got hemodialysis yesterday. 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 Possible need for long-term dialysis. monitor closely for urine output. Monitor creatinine closely. Diabetes; hypoglycemia resolved. Continue Regular Insulin sliding scale. started on low-dose Levemir. Upon discharge patient will follow up with Dr Bunch.
[2016-11-01] MEDS: Insulin Detemir 100 units/ml Vial (Levemir) SC SCH (22:21)
--- NOTE | 2016-11-01 22:55 | CARD ---
APPROVED REPORT EXAM: Two-dimensional and M-mode echocardiogram with Doppler and color Doppler. INDICATION ENDOCARDITIS 2D DIMENSIONS Left Atrium (2D)4.4 (1.6-4.0cm)IVSd1.4 (0.7-1.1cm) LVDd4.5 (3.9-5.9cm)PWd1.3 (0.7-1.1cm) LVDs3.7 (2.5-4.0cm)FS (%) 16.7 % LVEF (%)35.2 (>50%) M-Mode DIMENSIONS Aortic Root2.80 (2.2-3.7cm)Aortic Cusp Exc.1.70 (1.5-2.0cm) Aortic Valve AoV Peak Urriolqc540.0cm/Yuliya Peak GR.8mmHg Mitral Valve MV E Xdmwodlf556.0cm/sMV A Xeygkviy81.8cm/sE/A ratio1.2 TDI Lateral E' Peak V9.94cm/sMedial E' Peak V6.73cm/sE/Lateral E'10.5 E/Medial E'15.5 Pulmonary Valve PV Peak Dzmwcjdg18.1cm/sPV Peak Grad.2mmHg Tricuspid Valve TR Peak [id number]/sRAP [id number] Peak Gr.34mmHg [id number] LEFT VENTRICLE The left ventricle is normal size. There is mild concentric left ventricular hypertrophy. The systolic function is severely impaired. There is global hypokinesis of the left ventricle. RIGHT VENTRICLE The right ventricle is normal size. There is normal right ventricular wall thickness. Systolic function is borderline reduced. ATRIA The left atrium is mildly dilated. The right atrium is mildly dilated. AORTIC VALVE The aortic valve is not well visualized. No aortic regurgitation is present. MITRAL VALVE The mitral valve is mildly thickened. Mitral regurgitation is mild. TRICUSPID VALVE There is mild to moderate tricuspid regurgitation. There is mild to moderate pulmonary hypertension. GREAT VESSELS The aortic root is normal in size. The IVC collapses <50% with inspiration. <Conclusion> The left ventricle is normal size. There is mild concentric left ventricular hypertrophy. The systolic function is severely impaired. There is global hypokinesis of the left ventricle. Mitral regurgitation is mild. There is mild to moderate tricuspid regurgitation. There is mild to moderate pulmonary hypertension.
[2016-11-02 02:34] LABS: TOTAL PROTEIN, SERUM 6.5 g/dL (6.1-8.1)
--- NOTE | 2016-11-02 04:05 | OP ---
PROCEDURE DATE: 10/31/2016 SURGEON: Rina Lazar DPM DIGITAL CONTENT SPECIALIST: Brennan Cantu DPM, PGY-1. TYPE OF ANESTHESIA: MAC with local 11 mL of 2% lidocaine plain. ANESTHESIA ADMINISTERED BY: Dr. Parker. PREOPERATIVE DIAGNOSES: Left foot abscess, Landa grade 3 diabetic ulcerations x3 and osteomyelitis. POSTOPERATIVE DIAGNOSES: Left foot abscess, Landa grade 3 diabetic ulcerations x3 and osteomyelitis. PROCEDURE: Left foot incision and drainage with wound debridement. INDICATIONS: The patient is a 36-year-old female with the above diagnoses. The patient has exhausted all conservative treatments at this time and now requires surgical intervention. The patient signed a consent after careful explanation of risks, benefits, complications, and alternatives for surgical procedure and wishes to proceed. No guarantees were given nor implied. N.p.o. status was confirmed prior to taking the patient to the OR. PREPARATION: The patient was brought into the operating room and placed on the operating room table in a supine position. Time-out was performed for identification of the correct patient and procedure. After induction of MAC, the patient received a total of 11 mL of 2% lidocaine plain in an ankle block type fashion to the left foot. The left foot was then prepped and draped in normal sterile manner and the procedure began. No tourniquet was used during the procedure. PROCEDURE: Attention was then directed to the plantar calcaneus where ulceration #1, measuring approximately 3 x 3 cm was noted and ulceration #2 located distally to ulcer #1, measuring approximately 0.6 x 0.5 cm was noted as well. Using a #15 blade, linear incision was made connecting the two ulcerations. The incision was deep into subcutaneous tissue using a #15 blade. All vital neurovascular structures were ligated and cauterized as necessary. Next, using iris scissors, all nonviable tissues were removed and then passed off the field. Directing attention towards the posterior calcaneus, ulceration #3, measuring approximately 0.4 x 0.4 cm was noted. Ulceration 3 was probed using a curved hemostat and it was noted to communicate with ulcerations #1 and #2. Approximately, 20 mL of purulence was expressed from an abscess deep within the 3 wounds. A wound culture was obtained from the plantar abscess, passed off the field and sent to pathology. Next, using the [employer]ix Ultrasonic curette style tip on setting 7, the three ulceration sites were excisionally debrided of all fibrotic and nonviable tissue until fresh and healthy bleeding granular tissue appeared. Any remaining nonviable tissue was excised using forceps and curved iris scissors. Next, using the [employer] Ultrasonic cylindrical tip, the instrument was probed from ulceration #3 into ulcerations #1 and #2 and using the handle on setting 7, all fibrotic and nonviable tissue where the three ulceration sites communicated was excisionally debrided until all healthy bleeding granular tissue appeared. Any remaining bleeders were cauterized as necessary. The site was then flesh with copious amount with sterile saline. Gelfoam was inserted into the plantar ulceration site as blood was pooling deep within the wound recesses, unable to be cauterized. The left foot was then dressed with sterile gauze, ABD's and Kerlix. POSTOPERATIVE CONDITION: The patient tolerated the anesthesia and the procedure well and was escorted to the recovery room with vital signs stable and neurovascular status intact to the right foot. The patient is to remain nonweightbearing to the left foot. The patient will continue to be followed while in house. Brennan Cantu DPM Rina Lazar DPM GABRIELLA
[2016-11-02] MEDS: Pantoprazole 40 mg EC Tab PO SCH ×2 (06:11→17:56)
[2016-11-02 07:16] LABS: CREATININE, 24 HOUR URINE 0.11 g/24 h (0.63-2.50)
[2016-11-02 07:36] LABS: BASO # 0.01 K/mm3 (0.0-2.0); BASO % 0.1 % (0.0-3.0); EOS # 0.4 (0.0-0.7); EOS % 2.9 % (1.5-5.0); GRAN # 11.85 (1.4-6.5); GRAN % 78.3 % (50.0-68.0); LYMPH # 1.5 (1.2-3.4); LYMPH % 9.7 % (22.0-35.0); MEAN CELL VOLUME 83.8 fl (80.0-105.0); MEAN CORPUSCULAR HEMOGLOBIN 27.3 pg (25.0-35.0); MEAN CORPUSCULAR HGB CONC 32.6 g/dl (31.0-37.0); MONO # 1.4 (0.1-0.6); WHITE BLOOD COUNT 15.1 10^3/ul (4.5-11.0)
[2016-11-02 07:44] LABS: HEMATOCRIT 23.3 % (36.0-48.0)
[2016-11-02 08:06] LABS: ALB/GLOB RATIO 0.6 (1.1-1.8); BILIRUBIN,TOTAL 0.6 mg/dL (0.2-1.3); CALCIUM 7.6 mg/dL (8.4-10.5); MAGNESIUM 1.9 mg/dL (1.7-2.2); PHOSPHOROUS 3.3 mg/dL (2.5-4.5); POTASSIUM 3.5 mmol/L (3.6-5.0); TOTAL PROTEIN 6.9 g/dL (5.8-8.3)
--- NOTE | 2016-11-02 08:50 | PN ---
DATE: 11/02/2016 SUBJECTIVE: The patient is in bed, in no acute distress, nontoxic. No fevers or chills. PHYSICAL EXAMINATION: VITAL SIGNS: Temperature is 99, blood pressures is 140/80, respiratory rate of 18. HEENT: Unremarkable. NECK: Supple. LUNGS: Decreased breath sounds. HEART: Normal S1 and S2. ABDOMEN: Soft and nontender. LABORATORY DATA: Reveals the white count of 15,100, hemoglobin of 7, platelets of 244. Chemistries reveals the BUN of 38, creatinine of 3.6. Microbiology reveals the left foot culture with a staph aureus, sensitivity is pending. The blood cultures from the , no growth. The left foot culture from the is MRSA. Review of orders reveals the patient to be on daptomycin. ASSESSMENT AND PLAN: This is a 36-year-old female with severe sepsis, acute renal failure due to acute pyelonephritis, growing methicillin-resistant Staphylococcus aureus in the urine as well as at left foot, gram-positive cocci staph aureus. MRI showing osteomyelitis, status post incision and drainage post-procedure day #2 in a patient with diabetes mellitus and diabetic neuropathy, hypertension, history of right deep vein thrombosis, bilateral foot ulcers. Currently on daptomycin and we will need 4 to 6 weeks of antibiotics with weekly CBC, SMA-18, sed rate, C-reactive protein and a CPK. We will follow closely with you. Dusty Crabtree MD
[2016-11-02] MEDS: Insulin Lispro (humaLOG) MEDIUM Coverage SC SCH ×4 (08:59→22:16)
--- NOTE | 2016-11-02 09:22 | CP.PCM.PN ---
<Gilbert Tatum - Last Filed: 11/02/16 18:48> Subjective - Date & Time of Evaluation Date of Evaluation: 11/02/16 Time of Evaluation: 09:16 - Subjective Subjective: Patient seen and examined at bedside. Patient reports she is full of energy today. Denies CP, SOB, N/V/D. Objective - Vital Signs/Intake and Output Vital Signs (last 24 hours): Temp Pulse Resp BP Pulse Ox 99.3 F 87 21 141/86 100 11/02/16 06:00 11/02/16 06:00 11/02/16 06:00 11/02/16 06:00 11/02/16 06:00 - Medications Medications: Current Medications Acetaminophen (Tylenol 325mg Tab) 650 mg PO Q6H PRN PRN Reason: Pain, moderate (4-7) Last Admin: 11/01/16 17:49 Dose: 650 mg Ascorbic Acid (Vitamin C 500 Mg Tab) 500 mg PO BID [facility] Last Admin: 11/01/16 17:49 Dose: 500 mg Carvedilol (Coreg) 6.25 mg PO BID [facility] Ferrous Sulfate (Feosol Liq) 300 mg PO TID [facility] Last Admin: 11/01/16 17:53 Dose: 300 mg Daptomycin 320 mg/ Sodium (Chloride) 100 mls @ 100 mls/hr IV QOTHERDAY [facility] PRN Reason: Protocol Stop: 11/04/16 10:01 Last Admin: 11/01/16 10:23 Dose: 100 mls/hr Insulin Detemir (Levemir) 5 unit SC HS [facility] Last Admin: 11/01/16 22:21 Dose: 5 unit Insulin Human Lispro (Humalog Med) 0 units SC ACHS [facility] PRN Reason: Protocol Last Admin: 11/02/16 08:59 Dose: 1 units Metoclopramide HCl (Reglan) 5 mg IVP ACHS [facility] Last Admin: 11/02/16 09:01 Dose: Not Given Multivitamins/Minerals (Therapeutic-M Tab) 1 tab PO 0800 [facility] Oxychlorosene Sodium (Clorpactin Wcs-90) 2 gm TOP DAILY [facility] Last Admin: 11/01/16 12:57 Dose: Not Given Pantoprazole Sodium (Protonix Ec Tab) 40 mg PO 0600,1600 [facility] Last Admin: 11/02/16 06:11 Dose: 40 mg Pregabalin (Lyrica) 100 mg PO TID [facility] Last Admin: 11/01/16 17:50 Dose: 100 mg Zinc Sulfate (Zinc Sulfate 220 Mg Cap) 220 mg PO DAILY [facility] Last Admin: 11/01/16 10:23 Dose: 220 mg - Labs Labs: 11/02/16 07:20 11/02/16 07:20 PT 13.3 Seconds (9.9-11.8) H 10/26/16 20:30 INR 1.23 (0.93-1.08) H 10/26/16 20:30 APTT 40.6 Seconds (23.7-30.8) H 10/26/16 20:30 - Head Exam Additional comments: - Constitutional Appears: Not in Acute Distress, Unkempt, Older Than Stated Age - Head Exam Head Exam: ATRAUMATIC, NORMAL INSPECTION, NORMOCEPHALIC - Eye Exam Eye Exam: EOMI, Normal appearance, PERRL Pupil Exam: NORMAL ACCOMODATION - ENT Exam ENT Exam: Mucous Membranes Dry Additional comments: missing teeth poor dentition - Neck Exam Neck Exam: Normal Inspection - Respiratory Exam Respiratory Exam: Clear to Ausculation Bilateral, NORMAL BREATHING PATTERN. absent: Wheezes, Respiratory Distress - Cardiovascular Exam Cardiovascular Exam: RRR, +S1, +S2. absent: Murmur - GI/Abdominal Exam GI & Abdominal Exam: Soft, Normal Bowel Sounds. absent: Guarding, Tenderness, Organomegaly - Back Exam Back Exam: absent: CVA tenderness (L), CVA tenderness (R) - Neurological Exam Neurological Exam: Alert, Awake, Oriented x3 - Psychiatric Exam Psychiatric exam: Normal Mood - Skin Additional comments: L ankle wrapped in clean dressing (c/d/i) L foot w/ 2 toe amputations Assessment and Plan - Assessment and Plan (Free Text) Assessment: 36yo F PMH DM, HTN, HLD, RLE dvt and LLE ulcer who presents w/ Septic shock 2/2 pyelonephritis 2/2 untreated UTI. EMMETT still present, improving on dialysis. Metabolic acidosis resolved. Also found to be anemic, likely due to chronic disease (diabetes). Found to have UTI and LLE ulcer growing MRSA. MRI shows osteomyelitis of L calcaneus and diffuse plantar proximal aspect of L foot. s/p Merrem x6d. POD 1 s/p debridement. Patient given 1 unit of PRBCs today. Plan: 1. Septic Shock likely 2/2 osteomyelitis vs pyelo vs untreated UTI - pt clinically improving, shock has resolved off pressors - Sepsis criteria still met - Daptomycin (d4) - ID consulted, recs appreciated - L foot wound cx growing MRSA and corynebacterium - Ucx growing MRSA - tachycardia and leukocytosis still present, but improving - continue to monitor - pain mgmt: morphine 1q6 PRN - Reglan ACHS for n/v 2. LLE ulcer - s/p I&D POD 2 - wound care per podiatry - L Foot cx growing MRSA and corynbacterium - MRI L foot showed osteomyelitis of L calcaneus and diffuse plantar proximal aspect of L foot. - f/u sensitivities - podiatry consulted, recs appreciated 3. EMMETT on CKD vs worsening CKD - Cr currently 2.9, improves w/ dialysis (3 sessions so far; last one yesterday) - Nephrology consulted, recs appreciated concerning long-term dialysis - RIJ in place 4. Anemia likely 2/2 chronic dz - s/p 5u pRBC transfused - microcytic hypochromic anemia - likely due to chronic kidney 2/2 uncontrolled DM2 - feosol - 1 U of PRBCs given today - Dr. Weaver consulted - Hbg Electropheresis ordered 5. Hx DM - CCD - ISS low - A1C 8.4 - Levemir 5u HS - Lyrica 100 TID 6. EF of 35% - Cardiology consulted, Dr. Ryan -Coreg 6.25 BID -Lipid panel ordered CCD Heparin/PTX Patient was seen, evaluated and discussed with attending, Dr. Talley <Laquita Talley - Last Filed: 11/03/16 10:47> Objective - Vital Signs/Intake and Output Vital Signs (last 24 hours): Temp Pulse Resp BP Pulse Ox 98.2 F 108 H 20 131/92 H 97 11/03/16 05:59 11/03/16 06:00 11/03/16 05:59 11/03/16 05:59 11/03/16 05:59 Intake and Output: 11/03/16 11/03/16 06:59 18:59 Intake Total 720 Output Total 1400 Balance -680 - Medications Medications: Current Medications Acetaminophen (Tylenol 325mg Tab) 650 mg PO Q6H PRN PRN Reason: Pain, moderate (4-7) Last Admin: 11/01/16 17:49 Dose: 650 mg Ascorbic Acid (Vitamin C 500 Mg Tab) 500 mg PO BID [facility] Last Admin: 11/02/16 17:56 Dose: Not Given Carvedilol (Coreg) 6.25 mg PO BID [facility] Last Admin: 11/02/16 17:55 Dose: Not Given Ferrous Sulfate (Feosol Liq) 300 mg PO TID [facility] Last Admin: 11/02/16 17:55 Dose: Not Given Daptomycin 320 mg/ Sodium (Chloride) 100 mls @ 100 mls/hr IV QOTHERDAY [facility] PRN Reason: Protocol Stop: 11/04/16 10:01 Last Admin: 11/01/16 10:23 Dose: 100 mls/hr Insulin Detemir (Levemir) [address] [facility] Last Admin: 11/02/16 22:28 Dose: 5 unit Insulin Human Lispro (Humalog Med) 0 units SC [facility] PRN Reason: Protocol Last Admin: 11/02/16 22:16 Dose: Not Given Metoclopramide HCl (Reglan) 5 mg IVP ACHS [facility] Last Admin: 11/02/16 22:26 Dose: 5 mg Multivitamins/Minerals (Therapeutic-M Tab) 1 tab PO 0800 [facility] Last Admin: 11/02/16 10:58 Dose: 1 tab Oxychlorosene Sodium (Clorpactin Wcs-90) 2 gm TOP DAILY [facility] Last Admin: 11/03/16 10:30 Dose: Not Given Pantoprazole Sodium (Protonix Ec Tab) 40 mg PO 0600,1600 [facility] Last Admin: 11/03/16 05:45 Dose: 40 mg Pregabalin (Lyrica) 100 mg PO TID [facility] Last Admin: 11/02/16 17:56 Dose: Not Given Zinc Sulfate (Zinc Sulfate 220 Mg Cap) 220 mg PO DAILY [facility] Last Admin: 11/02/16 10:58 Dose: 220 mg - Labs Labs: 11/03/16 09:02 11/03/16 09:02 PT 13.3 Seconds (9.9-11.8) H 10/26/16 20:30 INR 1.23 (0.93-1.08) H 10/26/16 20:30 APTT 40.6 Seconds (23.7-30.8) H 10/26/16 20:30 Attending/Attestation - Attestation I have personally seen and examined this patient.: Yes I have fully participated in the care of the patient.: Yes I have reviewed all pertinent clinical information, including history, physical exam and plan: Yes Notes (Text): 11/03/16 10:43 attending note; Patient seen and examined with resident. Patient is a 36 year old female with history of IDDM, HTN, dyslipidemia, RLE DVT , wheel chair bound, 2 amputated toes of left leg and chronic LE ulcer who presented with severe sepsis secondary to acute pyelonephritis, Acute on chronic kidney disease, AGMA, electrolyte abnormalities, anemia and hypotension. currently patient denies any fevers and chills. Left foot wound culture is growing corynebacterium/MRSA. currently on daptomycin. follow-up intraoperative wound culture. status post incision and drainage. Dressing site is clean. Follow-up with auditing control clerk closely. Anemia; multifactorial. Patient will get 1 unit PRBC today. hematology evaluation requested. Acute on chronic Disease; continue hemodialysis per microbiology supervisor. Possible need for long-term dialysis. monitor closely for urine output. Monitor creatinine closely. urine output is increasing. Diabetes; hypoglycemia resolved. Continue Regular Insulin sliding scale. started on low-dose Levemir. cardiomyopathy; patient was explained in detail about low ejection fraction. Started on Coreg. Cardiology evaluation requested. long-term prognosis is poor secondary to multiple medical problems and noncompliance with follow-up. the diagnosis and treatment options discussed with patient in detail.
--- NOTE | 2016-11-02 09:29 | CP.PCM.PN ---
<Zoya Angulo - Last Filed: 11/02/16 09:24> Subjective - Date & Time of Evaluation Date of Evaluation: 11/02/16 Time of Evaluation: 09:00 - Subjective Subjective: Podiatry Progress Note - Dr. Craven 36 year old female patient seen at bedside this morning with Dr. Craven POD #2 L foot I&D. Pt seen resting comfortably in bed at time of visit. Pt's mother is at bedside during visit. Pt denies any problems overnight, denies any pain or discomfort to the extremity. Denies f/n/v/c/sob/cp/weakness. Objective - Vital Signs/Intake and Output Vital Signs (last 24 hours): Temp Pulse Resp BP Pulse Ox 99.3 F 87 21 141/86 100 11/02/16 06:00 11/02/16 06:00 11/02/16 06:00 11/02/16 06:00 11/02/16 06:00 - Medications Medications: Current Medications Acetaminophen (Tylenol 325mg Tab) 650 mg PO Q6H PRN PRN Reason: Pain, moderate (4-7) Last Admin: 11/01/16 17:49 Dose: 650 mg Ascorbic Acid (Vitamin C 500 Mg Tab) 500 mg PO BID [facility] Last Admin: 11/01/16 17:49 Dose: 500 mg Carvedilol (Coreg) 6.25 mg PO BID [facility] Ferrous Sulfate (Feosol Liq) 300 mg PO TID [facility] Last Admin: 11/01/16 17:53 Dose: 300 mg Daptomycin 320 mg/ Sodium (Chloride) 100 mls @ 100 mls/hr IV QOTHERDAY [facility] PRN Reason: Protocol Stop: 11/04/16 10:01 Last Admin: 11/01/16 10:23 Dose: 100 mls/hr Insulin Detemir (Levemir) 5 unit SC HS [facility] Last Admin: 11/01/16 22:21 Dose: 5 unit Insulin Human Lispro (Humalog Med) 0 units SC ACHS [facility] PRN Reason: Protocol Last Admin: 11/02/16 08:59 Dose: 1 units Metoclopramide HCl (Reglan) 5 mg IVP ACHS [facility] Last Admin: 11/02/16 09:01 Dose: Not Given Multivitamins/Minerals (Therapeutic-M Tab) 1 tab PO 0800 [facility] Oxychlorosene Sodium (Clorpactin Wcs-90) 2 gm TOP DAILY [facility] Last Admin: 11/01/16 12:57 Dose: Not Given Pantoprazole Sodium (Protonix Ec Tab) 40 mg PO 0600,1600 [facility] Last Admin: 11/02/16 06:11 Dose: 40 mg Pregabalin (Lyrica) 100 mg PO TID [facility] Last Admin: 11/01/16 17:50 Dose: 100 mg Zinc Sulfate (Zinc Sulfate 220 Mg Cap) 220 mg PO DAILY [facility] Last Admin: 11/01/16 10:23 Dose: 220 mg - Labs Labs: 11/02/16 07:20 11/02/16 07:20 PT 13.3 Seconds (9.9-11.8) H 10/26/16 20:30 INR 1.23 (0.93-1.08) H 10/26/16 20:30 APTT 40.6 Seconds (23.7-30.8) H 10/26/16 20:30 - Constitutional Appears: Well, Non-toxic, No Acute Distress - Extremities Exam Additional comments: VASC: DP and PT pulses palpable 2/4 b/l. TG WNL b/l. Edema noted to left foot. NEURO: Gross sensation absent bilaterally. DERM: Gelfoam present in plantar calcaneal wounds. Ulceration #1 noted to left medial heel measuring approximately 3 x 3 cm with a mixed fibrogranular base and mild sanguinous drainage noted however no active bleeding at this visit. Ulceration #2 located distal to ulcer #1 measuring approximately 0.6 x 0.5 cm with a mixed fibrogranular base and mild sanguinous drainage noted; no active bleeding noted. It is noted that a linear incision was made during sx opening the communication between ulcers #1 and #2. Ulceration noted to the posterior aspect of left heel with mixed fibrogranular base, also contiguous with ulcers # 1 and #2. All ulcerations +probe to bone, -malodor, -ascending erythema, - purulence. Nails to right foot appear thickened, elongated, and dystrophic with the presence of subungual debris. ORTHO: No pain on palpation noted to foot b/l. - Neurological Exam Neurological Exam: Awake Assessment and Plan - Assessment and Plan (Free Text) Assessment: 36 year old female 36 year old female PMHx IDDM, renal failure, sepsis, metabolic acidosis, UTI, CKD, anemia POD#2 left foot incision and drainage with wound debridement Plan: Patient seen and evaluated at bedside with attending, Dr. Craven Chart, vitals, labs reviewed: afebrile overnight, WBC trending down 15.1 (down from 20.1) Left foot cleansed with saline, gelfoam removed. Dressed with 4x4s, ABDs, and kerlix. Left foot intra-op wound culture: +MRSA Iv abx as per ID (will need 6 weeks IV abx) Prognosis for limb salvage poor Podiatry will continue to follow patient while in house <Logan Craven - Last Filed: 11/02/16 10:06> Objective - Vital Signs/Intake and Output Vital Signs (last 24 hours): Temp Pulse Resp BP Pulse Ox 99.3 F 87 21 141/86 100 11/02/16 06:00 11/02/16 06:00 11/02/16 06:00 11/02/16 06:00 11/02/16 06:00 - Medications Medications: Current Medications Acetaminophen (Tylenol 325mg Tab) 650 mg PO Q6H PRN PRN Reason: Pain, moderate (4-7) Last Admin: 11/01/16 17:49 Dose: 650 mg Ascorbic Acid (Vitamin C 500 Mg Tab) 500 mg PO BID [facility] Last Admin: 11/01/16 17:49 Dose: 500 mg Carvedilol (Coreg) 6.25 mg PO BID [facility] Ferrous Sulfate (Feosol Liq) 300 mg PO TID [facility] Last Admin: 11/01/16 17:53 Dose: 300 mg Daptomycin 320 mg/ Sodium (Chloride) 100 mls @ 100 mls/hr IV QOTHERDAY [facility] PRN Reason: Protocol Stop: 11/04/16 10:01 Last Admin: 11/01/16 10:23 Dose: 100 mls/hr Insulin Detemir (Levemir) 5 unit SC HS [facility] Last Admin: 11/01/16 22:21 Dose: 5 unit Insulin Human Lispro (Humalog Med) 0 units SC ACHS [facility] PRN Reason: Protocol Last Admin: 11/02/16 08:59 Dose: 1 units Metoclopramide HCl (Reglan) 5 mg IVP ACHS [facility] Last Admin: 11/02/16 09:01 Dose: Not Given Multivitamins/Minerals (Therapeutic-M Tab) 1 tab PO 0800 [facility] Oxychlorosene Sodium (Clorpactin Wcs-90) 2 gm TOP DAILY [facility] Last Admin: 11/01/16 12:57 Dose: Not Given Pantoprazole Sodium (Protonix Ec Tab) 40 mg PO 0600,1600 [facility] Last Admin: 11/02/16 06:11 Dose: 40 mg Pregabalin (Lyrica) 100 mg PO TID [facility] Last Admin: 11/01/16 17:50 Dose: 100 mg Zinc Sulfate (Zinc Sulfate 220 Mg Cap) 220 mg PO DAILY [facility] Last Admin: 11/01/16 10:23 Dose: 220 mg - Labs Labs: 11/02/16 07:20 11/02/16 07:20 PT 13.3 Seconds (9.9-11.8) H 10/26/16 20:30 INR 1.23 (0.93-1.08) H 10/26/16 20:30 APTT 40.6 Seconds (23.7-30.8) H 10/26/16 20:30 Attending/Attestation - Attestation I have personally seen and examined this patient.: Yes I have fully participated in the care of the patient.: Yes I have reviewed all pertinent clinical information, including history, physical exam and plan: Yes
[2016-11-02] MEDS: Oxychlorosene Topical 2 gm Packet TOP SCH (10:51)
[2016-11-02] MEDS: Ferrous Sulfate 300 mg/5 mL Liq UD PO SCH ×3 (10:57→17:55)
[2016-11-02] MEDS: Multivitamin With Minerals Tab PO SCH (10:58)
[2016-11-02 11:33] LABS: CHOLESTEROL < 50 mg/dL (130-200)
--- NOTE | 2016-11-02 19:21 | CARD ---
APPROVED REPORT EKG Measurement Heart [id number] <Conclusion> Normal sinus rhythm Right bundle branch block Abnormal ECG
[2016-11-02] MEDS: Insulin Detemir 100 units/ml Vial (Levemir) SC SCH (22:28)
--- NOTE | 2016-11-03 02:17 | CON ---
DATE: CARDIOLOGY CONSULTATION REASON FOR CONSULTATION: Congestive heart failure. HISTORY OF PRESENT ILLNESS: The patient is 36 years old female who is diabetic, history of peripheral vascular disease, status post left toe amputation in November of last year, who was admitted because of acute renal failure. The patient required hemodialysis at least twice according to the patient. The patient was unaware of any prior cardiac history. The patient underwent an echocardiographic study yesterday, which revealed severely impaired ejection fraction, which was estimated at around 35%. The patient is experiencing sharp left-sided chest pain at this time. The patient underwent debridement of lateral aspect of the left foot yesterday. SOCIAL HISTORY: Nonsmoker and nondrinker. MEDICATIONS: Coreg 6.25 mg once a day, daptomycin 320 mg intravenously every other day, Protonix 40 mg p.o. twice a day, Reglan 5 mg intravenously twice a day, multivitamin 1 tablet once a day, vitamin C 500 mg twice a day, zinc sulfate 220 mg p.o. daily beside Humalog insulin and Levemir. PHYSICAL EXAMINATION: GENERAL: The patient is a middle-aged female who does not appear to be in acute distress. VITAL SIGNS: Blood pressure 142/92, heart rate 100, and temperature 97.9. HEENT: Pale conjunctivae. HEART: S1 and S2 regular. CHEST: Diminished breath sound over left base. ABDOMEN: Soft. EXTREMITIES: Dressings applied to the left foot following debridement, only the third and middle left toes are the remaining ones, the other 3 were amputated. SIGNIFICANT STUDIES: Echocardiograph study performed yesterday revealed mild concentric LVH with severe impaired ejection fraction, mild mitral insufficiency, global hypokinesis, [id number] pulmonary hypertension. The most recent EKG on 10/26/2016 revealed normal sinus rhythm. LABORATORY DATA: Hemoglobin and hematocrit today 7.6 and 23.3, white count 16.1, and platelet count 244,000. SMA-7: Sodium 133, potassium 3.5, chloride 100, CO2 of 20, glucose 177, BUN 38, and creatinine 3.6. Urine drug screen is negative. Left foot wound culture is positive for MRSA. Blood cultures have been negative. ASSESSMENT: 1. Cardiomyopathy. 2. Acute renal failure requiring hemodialysis. 3. Status post left foot debridement. 4. Borderline hypokalemia. 5. Diabetes mellitus. 6. Sharp left-sided chest pain, possible small left pleural effusion. RECOMMENDATIONS: Continue Coreg at 6.25 mg twice a day. The patient is not a candidate for either MIHIR inhibitors or Aldactone. Obtain 12-lead EKG. Consider chest CT scan without contrast. Semaj Ryan MD
[2016-11-03] MEDS: Pantoprazole 40 mg EC Tab PO SCH ×2 (05:45→17:53)
[2016-11-03 09:35] LABS: BASO # 0.04 K/mm3 (0.0-2.0); BASO % 0.2 % (0.0-3.0); EOS # 0.4 (0.0-0.7); EOS % 2.1 % (1.5-5.0); GRAN # 15.47 (1.4-6.5); GRAN % 82.2 % (50.0-68.0); HEMATOCRIT 27.5 % (36.0-48.0); LYMPH # 1.5 (1.2-3.4); LYMPH % 8.2 % (22.0-35.0); MEAN CELL VOLUME 85.7 fl (80.0-105.0); MEAN CORPUSCULAR HEMOGLOBIN 28.3 pg (25.0-35.0); MEAN CORPUSCULAR HGB CONC 33.1 g/dl (31.0-37.0); MEAN PLATELET VOLUME 9.1 fl (7.0-11.0); MONO # 1.4 (0.1-0.6); MONO % 7.3 % (1.0-6.0); WHITE BLOOD COUNT 18.8 10^3/ul (4.5-11.0)
[2016-11-03 09:45] LABS: ALB/GLOB RATIO 0.6 (1.1-1.8); BILIRUBIN,TOTAL 0.5 mg/dL (0.2-1.3); CALCIUM 7.7 mg/dL (8.4-10.5); MAGNESIUM 1.9 mg/dL (1.7-2.2); PHOSPHOROUS 2.7 mg/dL (2.5-4.5); POTASSIUM 3.5 mmol/L (3.6-5.0); TOTAL PROTEIN 7.4 g/dL (5.8-8.3)
--- NOTE | 2016-11-03 10:12 | CP.PCM.PN ---
<Zoya Angulo - Last Filed: 11/03/16 10:08> Subjective - Date & Time of Evaluation Date of Evaluation: 11/03/16 Time of Evaluation: 09:45 - Subjective Subjective: Podiatry Progress Note - Dr. Craven 36 year old female patient seen at bedside this morning POD #3 L foot I&D. Pt is seen resting comfortably in bed at time of visit. Denies any pain or discomfort to the lower extremity today. Denies f/n/v/c/sob/cp at this time. Pt is requesting a surgical shoe today so that she can get up and go to the bathroom. Pt does say that she does not walk very much but would like to start working with physical therapy. Offers no other complaints. Objective - Vital Signs/Intake and Output Vital Signs (last 24 hours): Temp Pulse Resp BP Pulse Ox 98.2 F 108 H 20 131/92 H 97 11/03/16 05:59 11/03/16 06:00 11/03/16 05:59 11/03/16 05:59 11/03/16 05:59 Intake and Output: 11/03/16 11/03/16 06:59 18:59 Intake Total 720 Output Total 1400 Balance -680 - Medications Medications: Current Medications Acetaminophen (Tylenol 325mg Tab) 650 mg PO Q6H PRN PRN Reason: Pain, moderate (4-7) Last Admin: 11/01/16 17:49 Dose: 650 mg Ascorbic Acid (Vitamin C 500 Mg Tab) 500 mg PO BID [facility] Last Admin: 11/02/16 17:56 Dose: Not Given Carvedilol (Coreg) 6.25 mg PO BID [facility] Last Admin: 11/02/16 17:55 Dose: Not Given Ferrous Sulfate (Feosol Liq) 300 mg PO TID [facility] Last Admin: 11/02/16 17:55 Dose: Not Given Daptomycin 320 mg/ Sodium (Chloride) 100 mls @ 100 mls/hr IV QOTHERDAY [facility] PRN Reason: Protocol Stop: 11/04/16 10:01 Last Admin: 11/01/16 10:23 Dose: 100 mls/hr Insulin Detemir (Levemir) 5 unit SC HS [facility] Last Admin: 11/02/16 22:28 Dose: 5 unit Insulin Human Lispro (Humalog Med) 0 units SC ACHS [facility] PRN Reason: Protocol Last Admin: 11/02/16 22:16 Dose: Not Given Metoclopramide HCl (Reglan) 5 mg IVP ACHS [facility] Last Admin: 11/02/16 22:26 Dose: 5 mg Multivitamins/Minerals (Therapeutic-M Tab) 1 tab PO 0800 [facility] Last Admin: 11/02/16 10:58 Dose: 1 tab Oxychlorosene Sodium (Clorpactin Wcs-90) 2 gm TOP DAILY [facility] Last Admin: 11/02/16 10:51 Dose: Not Given Pantoprazole Sodium (Protonix Ec Tab) 40 mg PO 0600,1600 [facility] Last Admin: 11/03/16 05:45 Dose: 40 mg Pregabalin (Lyrica) 100 mg PO TID [facility] Last Admin: 11/02/16 17:56 Dose: Not Given Zinc Sulfate (Zinc Sulfate 220 Mg Cap) 220 mg PO DAILY [facility] Last Admin: 11/02/16 10:58 Dose: 220 mg - Labs Labs: 11/03/16 09:02 11/03/16 09:02 PT 13.3 Seconds (9.9-11.8) H 10/26/16 20:30 INR 1.23 (0.93-1.08) H 10/26/16 20:30 APTT 40.6 Seconds (23.7-30.8) H 10/26/16 20:30 - Constitutional Appears: Non-toxic, No Acute Distress - Extremities Exam Extremities Exam: absent: Calf Tenderness Additional comments: VASC: DP and PT pulses palpable 2/4 b/l. TG WNL b/l. Edema noted to left foot. NEURO: Gross sensation absent bilaterally. DERM: Ulceration #1 noted to left medial heel measuring approximately 3 x 3 cm with a mixed fibrogranular base and mild sanguinous drainage noted however no active bleeding at this visit. Ulceration #2 located distal to ulcer #1 measuring approximately 0.6 x 0.5 cm with a mixed fibrogranular base and mild sanguinous drainage noted; no active bleeding noted. It is noted that a linear incision was made during sx opening the communication between ulcers #1 and #2. Ulceration noted to the posterior aspect of left heel with mixed fibrogranular base, also contiguous with ulcers #1 and #2. All ulcerations +probe to bone, - malodor, -ascending erythema, -purulence. Nails to right foot appear thickened, elongated, and dystrophic with the presence of subungual debris. ORTHO: No pain on palpation noted to foot b/l. - Neurological Exam Neurological Exam: Alert, Awake - Psychiatric Exam Psychiatric exam: Normal Affect, Normal Mood Assessment and Plan - Assessment and Plan (Free Text) Assessment: 36 year old female POD#3 L foot I&D Plan: Patient S&E at bedside Plan discussed with attending Dr. Craven Chart, vitals, labs reviewed: Tmax overnight 100 (afebrile currently), WBC is increased today 18.8 (up from 15.1 yesterday) Left foot cleansed with saline, dressed with adaptic, 4x4s, ABDs, and kerlix. Left foot intra-op wound culture: +MRSA Iv abx as per ID (will need 6 weeks IV abx) Prognosis for limb salvage poor PT ordered: may use heel relief shoe with proper training Podiatry will continue to follow patient while in house <Logan Craven - Last Filed: 11/05/16 11:03> Objective - Vital Signs/Intake and Output Vital Signs (last 24 hours): Temp Pulse Resp BP Pulse Ox 99.0 F 90 20 109/72 96 11/05/16 06:00 11/05/16 10:54 11/05/16 06:00 11/05/16 10:54 11/05/16 06:00 Intake and Output: 11/05/16 11/05/16 06:59 18:59 Intake Total 240 Output Total 600 Balance -360 - Medications Medications: Current Medications Acetaminophen (Tylenol 325mg Tab) 650 mg PO Q6H PRN PRN Reason: Pain, moderate (4-7) Last Admin: 11/01/16 17:49 Dose: 650 mg Artificial Tears (Artificial Tears) 0.2 ml OU DAILY PRN PRN Reason: Dry skin Last Admin: 11/03/16 17:53 Dose: 2 drop Ascorbic Acid (Vitamin C 500 Mg Tab) 500 mg PO BID [facility] Last Admin: 11/05/16 10:59 Dose: 500 mg Carvedilol (Coreg) 6.25 mg PO BID [facility] Last Admin: 11/05/16 10:54 Dose: 6.25 mg Ferrous Sulfate (Feosol Liq) 300 mg PO TID [facility] Last Admin: 11/05/16 10:54 Dose: 300 mg Daptomycin 370 mg/ Sodium (Chloride) 100 mls @ 200 mls/hr IV QOTHERDAY [facility] Stop: 11/10/16 10:01 Last Admin: 11/05/16 10:52 Dose: 200 mls/hr Insulin Detemir (Levemir) 5 unit SC BID [facility] Last Admin: 11/05/16 10:53 Dose: 5 unit Insulin Human Lispro (Humalog Med) 0 units SC [facility] PRN Reason: Protocol Last Admin: 11/05/16 08:26 Dose: 3 units Metoclopramide HCl (Reglan) 5 mg IVP ACHS [facility] Last Admin: 11/05/16 08:30 Dose: Not Given Multi-Ingredient Cream (Hydrocerin Cream) 0 ea TOP BID [facility] Last Admin: 11/05/16 10:55 Dose: 1 unit Multivitamins/Minerals (Therapeutic-M Tab) 1 tab PO 0800 [facility] Last Admin: 11/05/16 08:26 Dose: 1 tab Oxychlorosene Sodium (Clorpactin Wcs-90) 2 gm TOP DAILY [facility] Last Admin: 11/05/16 11:02 Dose: 2 gm Pantoprazole Sodium (Protonix Ec Tab) 40 mg PO 0600,1600 [facility] Last Admin: 11/05/16 06:04 Dose: 40 mg Pregabalin (Lyrica) 100 mg PO TID [facility] Last Admin: 11/05/16 10:59 Dose: 100 mg Sodium Bicarbonate (Sodium Bicarbonate Tab) 1,300 mg PO TID [facility] Last Admin: 11/05/16 10:54 Dose: 1,300 mg Zinc Sulfate (Zinc Sulfate 220 Mg Cap) 220 mg PO DAILY [facility] Last Admin: 11/05/16 11:00 Dose: 220 mg - Labs Labs: 11/05/16 08:30 11/05/16 08:30 PT 13.3 Seconds (9.9-11.8) H 10/26/16 20:30 INR 1.23 (0.93-1.08) H 10/26/16 20:30 APTT 40.6 Seconds (23.7-30.8) H 10/26/16 20:30 Attending/Attestation - Attestation I have personally seen and examined this patient.: Yes I have fully participated in the care of the patient.: Yes I have reviewed all pertinent clinical information, including history, physical exam and plan: Yes
[2016-11-03] MEDS: Oxychlorosene Topical 2 gm Packet TOP SCH (10:30)
[2016-11-03] MEDS: Multivitamin With Minerals Tab PO SCH (10:40)
[2016-11-03] MEDS: Insulin Lispro (humaLOG) MEDIUM Coverage SC SCH ×4 (10:40→22:35)
[2016-11-03] MEDS: Ferrous Sulfate 300 mg/5 mL Liq UD PO SCH ×3 (10:44→17:53)
--- NOTE | 2016-11-03 17:20 | CP.PCM.PN ---
<Gilbert Tatum - Last Filed: 11/03/16 17:21> Subjective - Date & Time of Evaluation Date of Evaluation: 11/03/16 Time of Evaluation: 17:19 - Subjective Subjective: Gilbert Tatum DO, PGY-1, Hospitalist Service Patient seen and examined at bedside. Patient denies any chest pain, dyspnea, nausea, vomiting, or diarrhea. Nurse reports no events overnight. Objective - Vital Signs/Intake and Output Vital Signs (last 24 hours): Temp Pulse Resp BP Pulse Ox 97.1 F L 110 H 20 145/95 H 97 11/03/16 12:00 11/03/16 14:00 11/03/16 12:00 11/03/16 12:00 11/03/16 05:59 Intake and Output: 11/03/16 11/03/16 06:59 18:59 Intake Total 720 Output Total 1400 Balance -680 - Medications Medications: Current Medications Acetaminophen (Tylenol 325mg Tab) 650 mg PO Q6H PRN PRN Reason: Pain, moderate (4-7) Last Admin: 11/01/16 17:49 Dose: 650 mg Artificial Tears (Artificial Tears) 0.2 ml OU DAILY PRN PRN Reason: Dry skin Ascorbic Acid (Vitamin C 500 Mg Tab) 500 mg PO BID [facility] Last Admin: 11/03/16 10:40 Dose: 500 mg Carvedilol (Coreg) 6.25 mg PO BID [facility] Last Admin: 11/03/16 10:40 Dose: 6.25 mg Ferrous Sulfate (Feosol Liq) 300 mg PO TID [facility] Last Admin: 11/03/16 14:54 Dose: 300 mg Daptomycin 320 mg/ Sodium (Chloride) 100 mls @ 100 mls/hr IV QOTHERDAY [facility] PRN Reason: Protocol Stop: 11/04/16 10:01 Last Admin: 11/03/16 11:03 Dose: 100 mls/hr Insulin Detemir (Levemir) 5 unit SC HS [facility] Last Admin: 11/02/16 22:28 Dose: 5 unit Insulin Human Lispro (Humalog Med) 0 units SC ACHS [facility] PRN Reason: Protocol Last Admin: 11/03/16 12:42 Dose: 7 units Metoclopramide HCl (Reglan) 5 mg IVP ACHS [facility] Last Admin: 11/03/16 12:43 Dose: Not Given Multivitamins/Minerals (Therapeutic-M Tab) 1 tab PO 0800 [facility] Last Admin: 11/03/16 10:40 Dose: 1 tab Oxychlorosene Sodium (Clorpactin Wcs-90) 2 gm TOP DAILY [facility] Last Admin: 11/03/16 10:30 Dose: Not Given Pantoprazole Sodium (Protonix Ec Tab) 40 mg PO 0600,1600 [facility] Last Admin: 11/03/16 05:45 Dose: 40 mg Pregabalin (Lyrica) 100 mg PO TID [facility] Last Admin: 11/03/16 14:54 Dose: 100 mg Zinc Sulfate (Zinc Sulfate 220 Mg Cap) 220 mg PO DAILY [facility] Last Admin: 11/03/16 10:40 Dose: 220 mg - Labs Labs: 11/03/16 09:02 11/03/16 09:02 PT 13.3 Seconds (9.9-11.8) H 10/26/16 20:30 INR 1.23 (0.93-1.08) H 10/26/16 20:30 APTT 40.6 Seconds (23.7-30.8) H 10/26/16 20:30 - Head Exam Additional comments: - Constitutional Appears: Not in Acute Distress, Unkempt, Older Than Stated Age - Head Exam Head Exam: ATRAUMATIC, NORMAL INSPECTION, NORMOCEPHALIC - Eye Exam Eye Exam: EOMI, Normal appearance, PERRL Pupil Exam: NORMAL ACCOMODATION - ENT Exam ENT Exam: Mucous Membranes Dry Additional comments: missing teeth poor dentition - Neck Exam Neck Exam: Normal Inspection - Respiratory Exam Respiratory Exam: Clear to Ausculation Bilateral, NORMAL BREATHING PATTERN. absent: Wheezes, Respiratory Distress - Cardiovascular Exam Cardiovascular Exam: RRR, +S1, +S2. absent: Murmur - GI/Abdominal Exam GI & Abdominal Exam: Soft, Normal Bowel Sounds. absent: Guarding, Tenderness, Organomegaly - Back Exam Back Exam: absent: CVA tenderness (L), CVA tenderness (R) - Neurological Exam Neurological Exam: Alert, Awake, Oriented x3 - Psychiatric Exam Psychiatric exam: Normal Mood - Skin Additional comments: L ankle wrapped in clean dressing (c/d/i) L foot w/ 2 toe amputations Assessment and Plan - Assessment and Plan (Free Text) Assessment: 36yo F PMH DM, HTN, HLD, RLE dvt and LLE ulcer who presents w/ Septic shock 2/2 pyelonephritis 2/2 untreated UTI. EMMETT still present, improving on dialysis. Metabolic acidosis resolved. Also found to be anemic, likely due to chronic disease (diabetes). Found to have UTI and LLE ulcer growing MRSA. MRI shows osteomyelitis of L calcaneus and diffuse plantar proximal aspect of L foot. s/p Merrem x6d. POD 2 s/p debridement. Patient given 1 unit of PRBCs Plan: 1. Septic Shock likely 2/2 osteomyelitis vs pyelo vs untreated UTI - pt clinically improving, shock has resolved off pressors - Sepsis criteria still met - Daptomycin (d4) - ID consulted, recs appreciated - L foot wound cx growing MRSA and corynebacterium - Ucx growing MRSA - tachycardia and leukocytosis still present, but improving - continue to monitor - pain mgmt: morphine 1q6 PRN - Reglan ACHS for n/v 2. LLE ulcer - s/p I&D POD 2 - wound care per podiatry - L Foot cx growing MRSA and corynbacterium - MRI L foot showed osteomyelitis of L calcaneus and diffuse plantar proximal aspect of L foot. - f/u sensitivities - podiatry consulted, recs appreciated 3. EMMETT on CKD vs worsening CKD - Cr currently 2.9, improves w/ dialysis (3 sessions so far; last one yesterday) - Nephrology consulted, recs appreciated concerning long-term dialysis - RIJ in place 4. Anemia likely 2/2 chronic dz - s/p 5u pRBC transfused - microcytic hypochromic anemia - likely due to chronic kidney 2/2 uncontrolled DM2 - feosol - 1 U of PRBCs given today - Dr. Weaver consulted - Hbg Electropheresis ordered 5. Hx DM - CCD - ISS low - A1C 8.4 - Levemir 5u HS - Lyrica 100 TID 6. EF of 35% - Cardiology consulted, Dr. Ryan -Coreg 6.25 BID -Lipid panel ordered CCD Heparin/PTX Patient was seen, evaluated and discussed with attending, Dr. Talley <Laquita Talley - Last Filed: 11/03/16 18:13> Objective - Vital Signs/Intake and Output Vital Signs (last 24 hours): Temp Pulse Resp BP Pulse Ox 97.1 F L 110 H 20 145/95 H 97 11/03/16 12:00 11/03/16 14:00 11/03/16 12:00 11/03/16 12:00 11/03/16 05:59 Intake and Output: 11/03/16 11/03/16 06:59 18:59 Intake Total 720 Output Total 1400 Balance -680 - Medications Medications: Current Medications Acetaminophen (Tylenol 325mg Tab) 650 mg PO Q6H PRN PRN Reason: Pain, moderate (4-7) Last Admin: 11/01/16 17:49 Dose: 650 mg Artificial Tears (Artificial Tears) 0.2 ml OU DAILY PRN PRN Reason: Dry skin Last Admin: 11/03/16 17:53 Dose: 2 drop Ascorbic Acid (Vitamin C 500 Mg Tab) 500 mg PO BID [facility] Last Admin: 11/03/16 17:53 Dose: 500 mg Carvedilol (Coreg) 6.25 mg PO BID [facility] Last Admin: 11/03/16 17:53 Dose: 6.25 mg Ferrous Sulfate (Feosol Liq) 300 mg PO TID [facility] Last Admin: 11/03/16 17:53 Dose: 300 mg Daptomycin 320 mg/ Sodium (Chloride) 100 mls @ 100 mls/hr IV QOTHERDAY [facility] PRN Reason: Protocol Stop: 11/04/16 10:01 Last Admin: 11/03/16 11:03 Dose: 100 mls/hr Insulin Detemir (Levemir) 5 unit SC HS [facility] Last Admin: 11/02/16 22:28 Dose: 5 unit Insulin Human Lispro (Humalog Med) 0 units SC [facility] PRN Reason: Protocol Last Admin: 11/03/16 17:54 Dose: 5 units Metoclopramide HCl (Reglan) 5 mg IVP ACHS [facility] Last Admin: 11/03/16 17:47 Dose: Not Given Multivitamins/Minerals (Therapeutic-M Tab) 1 tab PO 0800 [facility] Last Admin: 11/03/16 10:40 Dose: 1 tab Oxychlorosene Sodium (Clorpactin Wcs-90) 2 gm TOP DAILY [facility] Last Admin: 11/03/16 10:30 Dose: Not Given Pantoprazole Sodium (Protonix Ec Tab) 40 mg PO 0600,1600 [facility] Last Admin: 11/03/16 17:53 Dose: 40 mg Pregabalin (Lyrica) 100 mg PO TID [facility] Last Admin: 11/03/16 17:53 Dose: 100 mg Zinc Sulfate (Zinc Sulfate 220 Mg Cap) 220 mg PO DAILY [facility] Last Admin: 11/03/16 10:40 Dose: 220 mg - Labs Labs: 11/03/16 09:02 11/03/16 09:02 PT 13.3 Seconds (9.9-11.8) H 10/26/16 20:30 INR 1.23 (0.93-1.08) H 10/26/16 20:30 APTT 40.6 Seconds (23.7-30.8) H 10/26/16 20:30 Attending/Attestation - Attestation I have personally seen and examined this patient.: Yes I have fully participated in the care of the patient.: Yes I have reviewed all pertinent clinical information, including history, physical exam and plan: Yes Notes (Text): 11/03/16 18:10 attending note; Patient seen and examined with resident. Patient is a 36 year old female with history of IDDM, HTN, dyslipidemia, RLE DVT , wheel chair bound, 2 amputated toes of left leg and chronic LE ulcer who presented with severe sepsis secondary to acute pyelonephritis, Acute on chronic kidney disease, AGMA, electrolyte abnormalities, anemia and hypotension. currently patient denies any fevers and chills. WBC count is still elevated. Left foot wound culture is growing corynebacterium/MRSA. currently on daptomycin. status post incision and drainage. Dressing site is clean. Follow-up with trainer closely. Intraoperative wound culture is positive for MRSA. supportive boot. PT evaluation requested. Anemia; multifactorial. Patient got 1 unit PRBC yesterday. Hemoglobin is stable.hematology evaluation requested. Acute on chronic Disease; continue hemodialysis per appeals and generalist clerk. Re evaluate the need for long-term dialysis with appeals and generalist clerk. Monitor creatinine closely. urine output is increasing. Diabetes; hypoglycemia resolved. Continue Regular Insulin sliding scale. started on low-dose Levemir. cardiomyopathy; patient was explained in detail about low ejection fraction. Started on Coreg. Cardiology evaluation appreciated. long-term prognosis is poor secondary to multiple medical problems and noncompliance with follow-up. the diagnosis and treatment options discussed with patient in detail. 11/03/16 18:13
[2016-11-03] MEDS: Aritificial Tears (15ml) OU PRN (17:53)
--- NOTE | 2016-11-03 20:48 | CP.PCM.PN ---
Subjective - Date & Time of Evaluation Date of Evaluation: 11/03/16 Time of Evaluation: 11:00 - Subjective Subjective: Patient denies any shortness of breath; s/p HD session yesterday during which she requested to come off about half way through the session; Objective - Vital Signs/Intake and Output Vital Signs (last 24 hours): Temp Pulse Resp BP Pulse Ox 99.1 F 105 H 20 145/95 H 97 11/03/16 18:00 11/03/16 18:00 11/03/16 12:00 11/03/16 12:00 11/03/16 05:59 - Medications Medications: Current Medications Acetaminophen (Tylenol 325mg Tab) 650 mg PO Q6H PRN PRN Reason: Pain, moderate (4-7) Last Admin: 11/01/16 17:49 Dose: 650 mg Artificial Tears (Artificial Tears) 0.2 ml OU DAILY PRN PRN Reason: Dry skin Last Admin: 11/03/16 17:53 Dose: 2 drop Ascorbic Acid (Vitamin C 500 Mg Tab) 500 mg PO BID [facility] Last Admin: 11/03/16 17:53 Dose: 500 mg Carvedilol (Coreg) 6.25 mg PO BID [facility] Last Admin: 11/03/16 17:53 Dose: 6.25 mg Ferrous Sulfate (Feosol Liq) 300 mg PO TID [facility] Last Admin: 11/03/16 17:53 Dose: 300 mg Daptomycin 320 mg/ Sodium (Chloride) 100 mls @ 100 mls/hr IV QOTHERDAY [facility] PRN Reason: Protocol Stop: 11/04/16 10:01 Last Admin: 11/03/16 11:03 Dose: 100 mls/hr Insulin Detemir (Levemir) 5 unit SC HS [facility] Last Admin: 11/02/16 22:28 Dose: 5 unit Insulin Human Lispro (Humalog Med) 0 units SC ACHS [facility] PRN Reason: Protocol Last Admin: 11/03/16 17:54 Dose: 5 units Metoclopramide HCl (Reglan) 5 mg IVP ACHS [facility] Last Admin: 11/03/16 17:47 Dose: Not Given Multivitamins/Minerals (Therapeutic-M Tab) 1 tab PO 0800 [facility] Last Admin: 11/03/16 10:40 Dose: 1 tab Oxychlorosene Sodium (Clorpactin Wcs-90) 2 gm TOP DAILY [facility] Last Admin: 11/03/16 10:30 Dose: Not Given Pantoprazole Sodium (Protonix Ec Tab) 40 mg PO 0600,1600 [facility] Last Admin: 11/03/16 17:53 Dose: 40 mg Pregabalin (Lyrica) 100 mg PO TID [facility] Last Admin: 11/03/16 17:53 Dose: 100 mg Zinc Sulfate (Zinc Sulfate 220 Mg Cap) 220 mg PO DAILY [facility] Last Admin: 11/03/16 10:40 Dose: 220 mg - Labs Labs: 11/03/16 09:02 11/03/16 09:02 PT 13.3 Seconds (9.9-11.8) H 10/26/16 20:30 INR 1.23 (0.93-1.08) H 10/26/16 20:30 APTT 40.6 Seconds (23.7-30.8) H 10/26/16 20:30 - Constitutional Appears: Non-toxic, No Acute Distress - Head Exam Head Exam: NORMAL INSPECTION - Eye Exam Eye Exam: Normal appearance. absent: Scleral icterus - ENT Exam ENT Exam: Mucous Membranes Moist - Respiratory Exam Respiratory Exam: NORMAL BREATHING PATTERN Additional comments: R sided rales present - Cardiovascular Exam Cardiovascular Exam: REGULAR RHYTHM. absent: Gallop, Rubs - GI/Abdominal Exam GI & Abdominal Exam: Soft. absent: Distended, Tenderness - Exam Additional comments: sorenson in place - Extremities Exam Additional comments: no leg edema; - Neurological Exam Neurological Exam: Alert, Awake - Psychiatric Exam Psychiatric exam: Normal Affect, Normal Mood - Skin Skin Exam: Normal Color, Warm. 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; awaiting further results of further workup; Status: Chronic (3) Anemia Assessment & Plan: s/p PRBC transfusion; s/p aranesp 40 mcg three days ago, will likely need as outpatient due to advanced CKD; Status: Acute (4) Metabolic acidosis Assessment & Plan: Resolved; corrected by HD; Status: Acute (5) Sepsis Assessment & Plan: On daptomycin every other day for MRSA in wound and associated osteomyelitis; CrCl will likely remain < 30 ml/min even after recovery from EMMETT so can use same dapto dose; Patient s/p PICC line placement; however, she is a future ESRD candidate and so this choice of vascular access is not advisable (can cause damage to peripheral veins that could be used for AVF/AVG creation); will discuss with IR to change to a tunneled IJ catheter; Status: Acute
[2016-11-03] MEDS: Insulin Detemir 100 units/ml Vial (Levemir) SC SCH (22:31)
--- NOTE | 2016-11-04 00:03 | PN ---
DATE: 11/03/2016 SUBJECTIVE: The patient is in bed, was seen earlier today in ICU 266 with low-grade fever. PHYSICAL EXAMINATION VITAL SIGNS: Temperature is 97, T-max is 100, respiratory rate of 20, and heart rate of 104. HEENT: Unremarkable. NECK: Supple. LUNGS: Decreased breath sounds. HEART: Normal S1 and S2. ABDOMEN: Soft and nontender. LABORATORY DATA: Reveals a white count of 18,000, hemoglobin of 9, and platelets of 293. Chemistry reveals a BUN of 28, creatinine of 3.0. 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 The hep B surface antibody is positive. Hep B surface antigen is negative. Microbiology reveals the urine with yeast of the left foot with MRSA. Blood cultures are negative. Review of orders reveal the patient to be on daptomycin, which requires renewal, which I will do so. ASSESSMENT AND PLAN: This is a 36-year-old female seen earlier this morning in 266, bed 1 with severe sepsis, acute renal failure due to acute pyelonephritis with yeast in the urine, MRSA in the urine and a repeat urine culture is yeast, initial urine culture is MRSA. The patient with the left foot MRSA and Dr. note is reviewed. Dr. Zoya Angulo's note is reviewed. The MRI showing osteomyelitis, status post incision and drainage post procedure day #3, diabetic neuropathy, hypertension, history of right deep venous thrombosis, bilateral foot ulcers. Currently on daptomycin and we will need 4 to 6 weeks of antibiotics with weekly CBC, SMA-18, sed rate, C-reactive protein and a CPK once weekly. We will follow closely. Dusty Crabtree MD
[2016-11-04 06:25] LABS: BASO # 0.03 K/mm3 (0.0-2.0); BASO % 0.2 % (0.0-3.0); EOS # 0.1 (0.0-0.7); EOS % 0.5 % (1.5-5.0); GRAN # 12.97 (1.4-6.5); HEMATOCRIT 24.4 % (36.0-48.0); LYMPH # 1.4 (1.2-3.4); MEAN CELL VOLUME 87.5 fl (80.0-105.0); MEAN CORPUSCULAR HEMOGLOBIN 28.3 pg (25.0-35.0); MEAN CORPUSCULAR HGB CONC 32.4 g/dl (31.0-37.0); MEAN PLATELET VOLUME 9.4 fl (7.0-11.0); MONO # 0.8 (0.1-0.6); MONO % 5.3 % (1.0-6.0); RED CELL DISTRIBUTION WIDTH 15.5 % (11.5-14.5); WHITE BLOOD COUNT 15.3 10^3/ul (4.5-11.0)
[2016-11-04] MEDS: Pantoprazole 40 mg EC Tab PO SCH ×2 (06:30→17:59)
[2016-11-04 06:53] LABS: ALB/GLOB RATIO 0.6 (1.1-1.8); BILIRUBIN,TOTAL 0.5 mg/dL (0.2-1.3); CALCIUM 7.5 mg/dL (8.4-10.5); POTASSIUM 4.5 mmol/L (3.6-5.0); TOTAL PROTEIN 7.2 g/dL (5.8-8.3)
[2016-11-04] MEDS: Insulin Lispro (humaLOG) MEDIUM Coverage SC SCH ×4 (08:16→22:24)
[2016-11-04] MEDS: Ferrous Sulfate 300 mg/5 mL Liq UD PO SCH ×3 (09:13→17:59)
[2016-11-04] MEDS: Insulin Detemir 100 units/ml Vial (Levemir) SC SCH ×2 (09:15→17:59)
[2016-11-04] MEDS: Multivitamin With Minerals Tab PO SCH (09:15)
[2016-11-04] MEDS: Oxychlorosene Topical 2 gm Packet TOP SCH (09:16)
--- NOTE | 2016-11-04 09:26 | PN ---
NEPHROLOGY FOLLOWUP NOTE DATE: 11/02/2016 SUBJECTIVE: A 36-year-old female with past medical history of diabetes, CKD, stage IV, admitted with severe sepsis, acute renal failure, found to have left foot osteomyelitis. The patient reports feeling well. Urine output has increased. Denies any shortness of breath. Tolerating diet well. PHYSICAL EXAMINATION VITAL SIGNS: This morning, blood pressure 141/86, heart rate 87, respirations 21, temperature 99.3, O2 saturation 100% on room air. LABORATORY DATA: This morning, CBC: WBC 15.1, hemoglobin 7.6, hematocrit 23.3, and platelets 244. Chemistry panel: Sodium 133, potassium 3.5, chloride 100, bicarb 20, BUN 38, creatinine 3.6, glucose 177, calcium 7.6, albumin 2.7. PTH drawn last week was 125, phosphorus 3.3. Left foot wound growing MRSA. Urine culture also growing MRSA. ASSESSMENT AND PLAN: 1. Acute renal failure on chronic kidney disease, clinically consistent with acute tubular necrosis in the setting of sepsis, started on hemodialysis,now appears to be having improved urine output, although serum creatinine is still increasing between non-dialysis days; volume status is stable, electrolyte status relatively stable; however, we will dialyze mainly for clearance and hope that today can be the last dialysis day. Dialyzing on 3 K, 2.5 calcium, 34 bicarbonate, dialysate with ultrafiltration goal of 1.5 liters net over 3 hours. 2. Anemia secondary to renal failure. The patient's hemoglobin is downtrending slightly, status post packed red blood cells transfusion two days ago, received dose of Aranesp two days ago as well. We will continue to monitor for now and continue to give Aranesp weekly. 3. Chronic kidney disease, stage IV. Baseline creatinine is thought to be around low 3s; the patient with nephrotic range proteinuria likely secondary to diabetic nephropathy, complements within normal limits. Serum protein electrophoresis and serum light chain still pending, although doubt that this should show anything abnormal in a relatively young patient. The patient does have hepatitis C antibody reactive, but with normal complements, is highly unlikely. 4. Chronic kidney disease, mineral bone disease. Parathyroid hormone mildly elevated; however, no need to institute activated vitamin D at this time. Phosphorus within normal limits. Continue to monitor. 5. Sepsis with osteomyelitis. The patient on daptomycin for methicillin-resistant Staphylococcus aureus being dosed every other day. Continue the same. Needs to be redosed after dialysis sessions. Mick Preston MD
--- NOTE | 2016-11-04 11:18 | CP.PCM.PN ---
<AckermanAta - Last Filed: 11/04/16 13:14> Subjective - Date & Time of Evaluation Date of Evaluation: 11/04/16 Time of Evaluation: 09:30 - Subjective Subjective: Patient seen and examined at bedside. No acute overnight events. Patient resting comfortably in bed. Offers no new complaints at this time. More awake compared to reported baseline. States her abdominal pain has resolved since admission. Denies f/c/p/sob/abdominal pain/n/v/diarrhea/constipation/urinary symptoms. Objective - Vital Signs/Intake and Output Vital Signs (last 24 hours): Temp Pulse Resp BP Pulse Ox 98.5 F 96 H 19 111/75 98 11/04/16 06:00 11/04/16 10:00 11/04/16 06:00 11/04/16 09:16 11/04/16 06:00 - Medications Medications: Current Medications Acetaminophen (Tylenol 325mg Tab) 650 mg PO Q6H PRN PRN Reason: Pain, moderate (4-7) Last Admin: 11/01/16 17:49 Dose: 650 mg Artificial Tears (Artificial Tears) 0.2 ml OU DAILY PRN PRN Reason: Dry skin Last Admin: 11/03/16 17:53 Dose: 2 drop Ascorbic Acid (Vitamin C 500 Mg Tab) 500 mg PO BID [facility] Last Admin: 11/04/16 09:16 Dose: 500 mg Carvedilol (Coreg) 6.25 mg PO BID [facility] Last Admin: 11/04/16 09:16 Dose: 6.25 mg Ferrous Sulfate (Feosol Liq) 300 mg PO TID [facility] Last Admin: 11/04/16 09:13 Dose: 300 mg Insulin Detemir (Levemir) 5 unit SC BID [facility] Last Admin: 11/04/16 09:15 Dose: 5 unit Insulin Human Lispro (Humalog Med) 0 units SC ACHS [facility] PRN Reason: Protocol Last Admin: 11/04/16 08:16 Dose: 10 units Metoclopramide HCl (Reglan) 5 mg IVP ACHS [facility] Last Admin: 11/04/16 09:15 Dose: Not Given Multivitamins/Minerals (Therapeutic-M Tab) 1 tab PO 0800 [facility] Last Admin: 11/04/16 09:15 Dose: 1 tab Oxychlorosene Sodium (Clorpactin Wcs-90) 2 gm TOP DAILY [facility] Last Admin: 11/04/16 09:16 Dose: Not Given Pantoprazole Sodium (Protonix Ec Tab) 40 mg PO 0600,1600 [facility] Last Admin: 11/04/16 06:30 Dose: 40 mg Pregabalin (Lyrica) 100 mg PO TID [facility] Last Admin: 11/04/16 09:15 Dose: 100 mg Zinc Sulfate (Zinc Sulfate 220 Mg Cap) 220 mg PO DAILY [facility] Last Admin: 11/04/16 09:16 Dose: 220 mg - Labs Labs: 11/04/16 06:00 11/04/16 06:00 PT 13.3 Seconds (9.9-11.8) H 10/26/16 20:30 INR 1.23 (0.93-1.08) H 10/26/16 20:30 APTT 40.6 Seconds (23.7-30.8) H 10/26/16 20:30 - Additional Findings Additional findings: - Constitutional Appears: NAD - Head Exam Head Exam: ATRAUMATIC, NORMAL INSPECTION, NORMOCEPHALIC - Eye Exam Eye Exam: EOMI, Normal appearance, PERRL Pupil Exam: NORMAL ACCOMODATION, PERRL - ENT Exam ENT Exam: Mucous Membranes Moist, Normal Exam - Neck Exam Neck exam: Positive for: Normal Inspection - Respiratory Exam Respiratory Exam: Clear to Auscultation Bilateral, NORMAL BREATHING PATTERN - Cardiovascular Exam Cardiovascular Exam: REGULAR RHYTHM, +S1, +S2 - GI/Abdominal Exam GI & Abdominal Exam: Normal Bowel Sounds, Soft. absent: Tenderness - Extremities Exam Extremities exam: left foot bandaged - Back Exam Back exam: CVA tenderness (L), CVA tenderness (R) - Neurological Exam Neurological exam: Alert, Oriented x3 - Psychiatric Exam Psychiatric exam: Normal Affect, Normal Mood Assessment and Plan - Assessment and Plan (Free Text) Assessment: Assessment: 36yo F PMH DM, HTN, HLD, RLE dvt and LLE ulcer who presents w/ Septic shock 2/2 pyelonephritis 2/2 untreated UTI. EMMETT still present, improving on dialysis. Metabolic acidosis resolved. Also found to be anemic, likely due to chronic disease (diabetes). Found to have UTI and LLE ulcer growing MRSA. MRI shows osteomyelitis of L calcaneus and diffuse plantar proximal aspect of L foot. s/p Merrem x6d. POD 2 s/p debridement. Patient given 1 unit of PRBCs Plan: Septic Shock - likely 2/2 osteomyelitis vs pyelo vs untreated UTI (pyuria noted in [place]- decreased from reported baseline) - pt clinically improving, shock has resolved off pressors - Sepsis criteria still met - Daptomycin (d4) - ID consulted, recs appreciated - L foot wound cx growing MRSA and corynebacterium - Ucx growing MRSA - tachycardia resolved- HR in the 90s - leukocytosis still present, but improving LLE ulcer - s/p I&D - wound care per podiatry - L Foot cx growing MRSA and corynbacterium - MRI L foot showed osteomyelitis of L calcaneus and diffuse plantar proximal aspect of L foot. - f/u sensitivities - podiatry consulted, recs appreciated EMMETT on CKD vs worsening CKD - Cr currently 4.0, spoke with Dr. Preston- patient's creatinine needs to be monitored for additional 1-2 days, mid line needs to removed to save vasculature for HD in future, IR consult in coming days for tunneled right IJ triple lumen for dialysis and abx administration - Nephrology consulted, recs appreciated concerning long-term dialysis - RIJ in place Anemia likely 2/2 chronic dz - s/p 5u pRBC transfused - Hgb to 7.9 from 9.1 noted - likely due to chronic kidney 2/2 uncontrolled DM2 - feosol - Dr. Weaver consulted- appreciate recs - Hbg Electropheresis ordered and pending Hx DM - elevated glucose levels noted- patient started on levemir 5 BID - ISS med Peripheral Neuropathy - likely 2/2 to DM - Lyrica 100 TID Cardiomyopathy - ECHO shows EF of 35% - Cardioogy consulted, Dr. Ryan - Coreg 6.25 BID PPX - protonix - no scds due to foot infection, no lovenox due to renal function, no heparin due to decreasing H/H Patient seen, examined, case discussed with, and plan approved by attending physician, Dr Parker. <Agustin Parker - Last Filed: 11/04/16 18:52> Objective - Vital Signs/Intake and Output Vital Signs (last 24 hours): Temp Pulse Resp BP Pulse Ox 98.4 F 94 H 18 132/90 98 11/04/16 17:51 11/04/16 18:00 11/04/16 17:51 11/04/16 17:59 11/04/16 06:00 Intake and Output: 11/04/16 11/04/16 06:59 18:59 Intake Total 660 Output Total 300 Balance 360 - Medications Medications: Current Medications Acetaminophen (Tylenol 325mg Tab) 650 mg PO Q6H PRN PRN Reason: Pain, moderate (4-7) Last Admin: 11/01/16 17:49 Dose: 650 mg Artificial Tears (Artificial Tears) 0.2 ml OU DAILY PRN PRN Reason: Dry skin Last Admin: 11/03/16 17:53 Dose: 2 drop Ascorbic Acid (Vitamin C 500 Mg Tab) 500 mg PO BID [facility] Last Admin: 11/04/16 17:59 Dose: 500 mg Carvedilol (Coreg) 6.25 mg PO BID [facility] Last Admin: 11/04/16 17:59 Dose: 6.25 mg Ferrous Sulfate (Feosol Liq) 300 mg PO TID [facility] Last Admin: 11/04/16 17:59 Dose: 300 mg Insulin Detemir (Levemir) 5 unit SC BID [facility] Last Admin: 11/04/16 17:59 Dose: 5 unit Insulin Human Lispro (Humalog Med) 0 units SC [facility] PRN Reason: Protocol Last Admin: 11/04/16 18:00 Dose: 3 units Metoclopramide HCl (Reglan) 5 mg IVP ACHS [facility] Last Admin: 11/04/16 17:47 Dose: Not Given Multivitamins/Minerals (Therapeutic-M Tab) 1 tab PO 0800 [facility] Last Admin: 11/04/16 09:15 Dose: 1 tab Oxychlorosene Sodium (Clorpactin Wcs-90) 2 gm TOP DAILY [facility] Last Admin: 11/04/16 09:16 Dose: Not Given Pantoprazole Sodium (Protonix Ec Tab) 40 mg PO 0600,1600 [facility] Last Admin: 11/04/16 17:59 Dose: 40 mg Pregabalin (Lyrica) 100 mg PO TID [facility] Last Admin: 11/04/16 17:59 Dose: 100 mg Zinc Sulfate (Zinc Sulfate 220 Mg Cap) 220 mg PO DAILY [facility] Last Admin: 11/04/16 09:16 Dose: 220 mg - Labs Labs: 11/04/16 06:00 11/04/16 06:00 PT 13.3 Seconds (9.9-11.8) H 10/26/16 20:30 INR 1.23 (0.93-1.08) H 10/26/16 20:30 APTT 40.6 Seconds (23.7-30.8) H 10/26/16 20:30 Attending/Attestation - Attestation I have personally seen and examined this patient.: Yes I have fully participated in the care of the patient.: Yes I have reviewed all pertinent clinical information, including history, physical exam and plan: Yes Notes (Text): I have seen and examined the patient with the resident. Agree with the above note with the following addition/ exception: Briefly this is 36 year old female with history of IDDM, HTN, dyslipidemia, RLE DVT, wheel chair bound, 2 amputated toes of left leg and chronic LE ulcer who presented with severe sepsis secondary to acute pyelonephritis, Acute on chronic kidney disease, AGMA , electrolyte abnormalities, anemia and hypotension. Patient is alert, awake and denies any complaints. She still has leukocytosis and anemia. Patient underwent I&D and Left foot wound culture is growing corynebacterium/MRSA. currently on daptomycin. Intraoperative wound culture is positive for MRSA. Continue supportive boot. PT evaluation still pending. Her blood sugars were really high today. She has been non compliant with carb consistent diet. Consult placed for diabetes education. Levemir 5 bid started. Her anemia is multifactorial s/p 1 unit PRBC . Heme eval pending. Discussed with chainstitch pants outseamer. Patient still need to be monitored closely to evaluate if she will need HD chcf. Urine output is increasing.Dhe was also found to have cardiomyopathy and was started on Coreg. Cardiology evaluation appreciated. Long-term prognosis is poor secondary to multiple medical problems and noncompliance with follow-up. Upon discharge patient will follow up with Dr Bunch. Dr Agustin Parker
--- NOTE | 2016-11-04 12:15 | CP.PCM.PN ---
Subjective - Date & Time of Evaluation Date of Evaluation: 11/04/16 Time of Evaluation: 10:55 - Subjective Subjective: Comfortable, no fevers. Objective - Vital Signs/Intake and Output Vital Signs (last 24 hours): Temp Pulse Resp BP Pulse Ox 98.5 F 87 19 111/75 98 11/04/16 06:00 11/04/16 06:00 11/04/16 06:00 11/04/16 06:00 11/04/16 06:00 - Medications Medications: Current Medications Acetaminophen (Tylenol 325mg Tab) 650 mg PO Q6H PRN PRN Reason: Pain, moderate (4-7) Last Admin: 11/01/16 17:49 Dose: 650 mg Artificial Tears (Artificial Tears) 0.2 ml OU DAILY PRN PRN Reason: Dry skin Last Admin: 11/03/16 17:53 Dose: 2 drop Ascorbic Acid (Vitamin C 500 Mg Tab) 500 mg PO BID [facility] Last Admin: 11/03/16 17:53 Dose: 500 mg Carvedilol (Coreg) 6.25 mg PO BID [facility] Last Admin: 11/03/16 17:53 Dose: 6.25 mg Ferrous Sulfate (Feosol Liq) 300 mg PO TID [facility] Last Admin: 11/03/16 17:53 Dose: 300 mg Daptomycin 320 mg/ Sodium (Chloride) 100 mls @ 100 mls/hr IV QOTHERDAY [facility] PRN Reason: Protocol Stop: 11/04/16 10:01 Last Admin: 11/03/16 11:03 Dose: 100 mls/hr Insulin Detemir (Levemir) 5 unit SC BID [facility] Insulin Human Lispro (Humalog Med) 0 units SC [facility] PRN Reason: Protocol Last Admin: 11/04/16 08:16 Dose: 10 units Metoclopramide HCl (Reglan) 5 mg IVP ACHS [facility] Last Admin: 11/03/16 22:35 Dose: Not Given Multivitamins/Minerals (Therapeutic-M Tab) 1 tab PO 0800 [facility] Last Admin: 11/03/16 10:40 Dose: 1 tab Oxychlorosene Sodium (Clorpactin Wcs-90) 2 gm TOP DAILY [facility] Last Admin: 11/03/16 10:30 Dose: Not Given Pantoprazole Sodium (Protonix Ec Tab) 40 mg PO 0600,1600 [facility] Last Admin: 11/04/16 06:30 Dose: 40 mg Pregabalin (Lyrica) 100 mg PO TID [facility] Last Admin: 11/03/16 17:53 Dose: 100 mg Zinc Sulfate (Zinc Sulfate 220 Mg Cap) 220 mg PO DAILY [facility] Last Admin: 11/03/16 10:40 Dose: 220 mg - Labs Labs: 11/04/16 06:00 11/04/16 06:00 PT 13.3 Seconds (9.9-11.8) H 10/26/16 20:30 INR 1.23 (0.93-1.08) H 10/26/16 20:30 APTT 40.6 Seconds (23.7-30.8) H 10/26/16 20:30 - Constitutional Appears: Non-toxic, No Acute Distress - Head Exam Head Exam: NORMAL INSPECTION - ENT Exam ENT Exam: Mucous Membranes Moist - Neck Exam Neck Exam: absent: Meningismus - Respiratory Exam Respiratory Exam: Decreased Breath Sounds - Cardiovascular Exam Cardiovascular Exam: +S1, +S2 - GI/Abdominal Exam GI & Abdominal Exam: Soft. absent: Tenderness - Extremities Exam Additional comments: left foot with dressings in place Assessment and Plan - Assessment and Plan (Free Text) Plan: Assessment Severe sepsis with acute renal failure due to acute pyelonephritis, now growing MRSA in the urine as well as left foot wound infection/abscess with MRSA, MRI showing osteomyelitis, S/P I and D POD #4 DM with diabetic neuropathy HTN history of right DVT bilateral foot ulcers Plan continue renally-adjusted IV Daptomycin; wound cx showing MRSA; Corynebacterium is probably a contaminant reviewed MRI of left foot showing osteomyelitis - follow up cultures from the abscess (taken from yesterday) - will need 6 weeks of antibiotics follow up 2D echo, with weekly ESR, CRP, CBC, CMP, CPK levels will continue to follow clinically while the patient is in the hospital
[2016-11-04 12:18] LABS: HEMATOCRIT 27.2 % (35.0-45.0); HEMOGLOBIN 8.9 g/dL (11.7-15.5)
--- NOTE | 2016-11-04 15:27 | PN ---
DATE: SUBJECTIVE: The patient is in the company of her mother. She denies any shortness of breath or chest pain. PHYSICAL EXAMINATION: VITAL SIGNS: Blood pressure 111/75, heart rate 102, temperature 98.5, respiration 19. HEENT: Pale conjunctivae. CHEST: Diminished breath sounds over the bases. HEART: S1 and S2 regular. EXTREMITIES: No pedal edema. Dressing is applied to the left foot. LABORATORY DATA: Today's BUN and creatinine is 35 and 4.2, blood sugar is elevated at 538. Hemoglobin and hematocrit 7.9 and 24.4, white count 15.3, and platelet count 331,000. ASSESSMENT: 1. Acute renal failure. 2. Cardiomyopathy. 3. Status post left foot debridement. 4. Uncontrolled diabetes mellitus. 5. Pleuritic left-sided chest pain. CONDITIONS: Continue current Coreg 6.25 mg twice a day. Continue vitamin C, multivitamins, and Feosol liquid 300 mg t.i.d. The case was discussed with the hospitalist. No invasive cardiac workup is indicated at this time. The hemodialysis access will be left just in case the patient may require further hemodialysis. Semaj Ryan MD
--- NOTE | 2016-11-04 16:13 | CP.PCM.PN ---
<Brennan Cantu - Last Filed: 11/04/16 19:45> Subjective - Date & Time of Evaluation Date of Evaluation: 11/04/16 Time of Evaluation: 16:06 - Subjective Subjective: Podiatry Progress Note - Dr. Lazar 36 year old female patient seen at bedside POD#4 left foot I&D (DOS: 10/31/16). Patient seen resting comfortably, AAOx3 and NAD. Patient is accompanied by mother at bedside. Physical therapy present during visit. Patient denies any acute events overnight. Patient denies any pain to her left foot today. Patient states she would like to start working with physical therapy to begin walking again; per physical therapy, patient cannot undergo PT as her glucose > 300. Patient believes the food she is given at the hospital is causing her increased sugar levels. Per nursing and patient however, patient's mother frequently brings patient outside food. Patient not wearing offloading boots at this visit as she does not like them. Patient denies N/V/F/D/C/SOB/calf pain. No other pedal complaints at this time. Objective - Vital Signs/Intake and Output Vital Signs (last 24 hours): Temp Pulse Resp BP Pulse Ox 98.6 F 93 H 18 129/92 H 98 11/04/16 12:00 11/04/16 12:00 11/04/16 12:00 11/04/16 12:00 11/04/16 06:00 - Medications Medications: Current Medications Acetaminophen (Tylenol 325mg Tab) 650 mg PO Q6H PRN PRN Reason: Pain, moderate (4-7) Last Admin: 11/01/16 17:49 Dose: 650 mg Artificial Tears (Artificial Tears) 0.2 ml OU DAILY PRN PRN Reason: Dry skin Last Admin: 11/03/16 17:53 Dose: 2 drop Ascorbic Acid (Vitamin C 500 Mg Tab) 500 mg PO BID [facility] Last Admin: 11/04/16 09:16 Dose: 500 mg Carvedilol (Coreg) 6.25 mg PO BID [facility] Last Admin: 11/04/16 09:16 Dose: 6.25 mg Ferrous Sulfate (Feosol Liq) 300 mg PO TID [facility] Last Admin: 11/04/16 14:22 Dose: 300 mg Insulin Detemir (Levemir) 5 unit SC BID [facility] Last Admin: 11/04/16 09:15 Dose: 5 unit Insulin Human Lispro (Humalog Med) 0 units SC [facility] PRN Reason: Protocol Last Admin: 11/04/16 12:35 Dose: 10 units Metoclopramide HCl (Reglan) 5 mg IVP ACHS [facility] Last Admin: 11/04/16 12:37 Dose: Not Given Multivitamins/Minerals (Therapeutic-M Tab) 1 tab PO 0800 [facility] Last Admin: 11/04/16 09:15 Dose: 1 tab Oxychlorosene Sodium (Clorpactin Wcs-90) 2 gm TOP DAILY [facility] Last Admin: 11/04/16 09:16 Dose: Not Given Pantoprazole Sodium (Protonix Ec Tab) 40 mg PO 0600,1600 [facility] Last Admin: 11/04/16 06:30 Dose: 40 mg Pregabalin (Lyrica) 100 mg PO TID [facility] Last Admin: 11/04/16 14:22 Dose: 100 mg Zinc Sulfate (Zinc Sulfate 220 Mg Cap) 220 mg PO DAILY [facility] Last Admin: 11/04/16 09:16 Dose: 220 mg - Labs Labs: 11/04/16 06:00 11/04/16 06:00 PT 13.3 Seconds (9.9-11.8) H 10/26/16 20:30 INR 1.23 (0.93-1.08) H 10/26/16 20:30 APTT 40.6 Seconds (23.7-30.8) H 10/26/16 20:30 - Constitutional Appears: Well, Non-toxic, No Acute Distress, Unkempt - Extremities Exam Additional comments: VASC: DP and PT pulses palpable 2/4 b/l. TG WNL b/l. Edema noted to left foot. NEURO: Gross sensation absent bilaterally. DERM: LLE = Ulceration #1 noted to left medial heel measuring approximately 3 x 3 cm with a fibrous base and mild serosanguinous drainage noted however no active bleeding at this visit. Ulceration #2 located distal to ulcer #1 measuring approximately 0.6 x 0.5 cm with a fibrous base and mild serosanguinous drainage noted; no active bleeding noted. It is noted that a linear incision was made during sx opening the communication between ulcers #1 and #2. Ulceration noted to the posterior aspect of left heel with mixed fibrogranular base, also contiguous with ulcers #1 and #2. All ulcerations +probe to bone, -malodor, - ascending erythema, +purulence at this visit. RLE = Patch of erythema noted to plantarposterior calcaneus, does not ramsey. ORTHO: No pain on palpation noted to foot b/l. - Neurological Exam Neurological Exam: Alert, Awake, Oriented x3 - Psychiatric Exam Psychiatric exam: Normal Affect, Normal Mood Assessment and Plan - Assessment and Plan (Free Text) Assessment: 36 year old female 36 year old female PMHx IDDM, renal failure, sepsis, metabolic acidosis, UTI, CKD, anemia POD#4 left foot incision and drainage with wound debridement Plan: Patient seen and evaluated at bedside with attending, Dr. Lazar Chart, vitals, labs reviewed = afebrile, leukocytosis 15.3 (decreased from yesterday, 11/03 @ 18.8), glucose 442 Left foot cleansed with Clorpactin/Saline solution and Wound VAC applied to left foot - Plan to change WoundVAC MWF Left foot intra-op wound culture: +MRSA Per ID, continue renally-adjusted ID Daptomycin Per Physical Therapy, unable to undergo treatment at glucose level >300. Diabetic education referral ordered Multipodus boots ordered; patient to wear at all times while in bed to prevent pressure ulcer formation R heel Eucerin cream ordered, apply to affected areas BID Prognosis for limb salvage poor Podiatry will continue to follow patient while in house <Rina Lazar - Last Filed: 11/12/16 14:26> Objective - Vital Signs/Intake and Output Vital Signs (last 24 hours): Temp Pulse Resp BP Pulse Ox 100 F H 109 H 20 111/67 96 11/12/16 06:00 11/12/16 10:26 11/12/16 06:00 11/12/16 10:26 11/12/16 06:00 Intake and Output: 11/12/16 11/12/16 06:59 18:59 Intake Total 1020 840 Output Total 250 100 Balance 770 740 - Medications Medications: Current Medications Artificial Tears (Artificial Tears) 0.2 ml OU DAILY PRN PRN Reason: Dry skin Last Admin: 11/07/16 10:25 Dose: 2 drop Ascorbic Acid (Vitamin C 500 Mg Tab) 500 mg PO BID [facility] [place] Last Admin: 11/12/16 10:26 Dose: 500 mg Carvedilol (Coreg) 6.25 mg PO BID [facility] Last Admin: 11/12/16 10:26 Dose: 6.25 mg Collagenase (Santyl) 0 gm TOP DAILY [facility] Last Admin: 11/11/16 10:35 Dose: Not Given Ferrous Sulfate (Feosol Liq) 300 mg PO TID [facility] Last Admin: 11/12/16 10:26 Dose: 300 mg Furosemide (Lasix) 40 mg IVP DAILY [facility] [place] Last Admin: 11/12/16 10:26 Dose: 40 mg Meropenem 250 mg/ Sodium (Chloride) 100 mls @ 100 mls/hr IVPB Q12H [facility] PRN Reason: Protocol Stop: 11/19/16 09:31 Last Admin: 11/12/16 10:28 Dose: 100 mls/hr Daptomycin 420 mg/ Sodium (Chloride) 100 mls @ 200 mls/hr IV QOTHERDAY [facility] Stop: 11/16/16 11:16 Last Admin: 11/11/16 17:52 Dose: 200 mls/hr Insulin Detemir (Levemir) 7 unit SC BID [facility] [place] Last Admin: 11/12/16 10:27 Dose: 7 unit Insulin Human Lispro (Humalog Med) 0 units SC ACHS [facility] PRN Reason: Protocol Last Admin: 11/12/16 08:41 Dose: 5 units Metoclopramide HCl (Reglan) 5 mg IVP ACHS [facility] [place] Last Admin: 11/12/16 08:50 Dose: Not Given Multi-Ingredient Cream (Hydrocerin Cream) 0 ea TOP BID [facility] [place] Last Admin: 11/11/16 17:29 Dose: 1 unit Multivitamins/Minerals (Therapeutic-M Tab) 1 tab PO 0800 [facility] Last Admin: 11/12/16 10:25 Dose: 1 tab Oxychlorosene Sodium (Clorpactin Wcs-90) 2 gm TOP DAILY [facility] Last Admin: 11/10/16 11:07 Dose: Not Given Pantoprazole Sodium (Protonix Ec Tab) 40 mg PO 0600,1600 [facility] Last Admin: 11/12/16 05:54 Dose: 40 mg Pregabalin (Lyrica) 100 mg PO TID [facility] Last Admin: 11/12/16 10:26 Dose: 100 mg Sodium Bicarbonate (Sodium Bicarbonate Tab) 2,600 mg PO QID [facility] Last Admin: 11/12/16 10:26 Dose: 2,600 mg Zinc Sulfate (Zinc Sulfate 220 Mg Cap) 220 mg PO DAILY [facility] Last Admin: 11/12/16 10:25 Dose: 220 mg - Labs Labs: 11/12/16 06:30 11/12/16 06:30 PT 13.2 Seconds (9.9-11.8) H 11/11/16 05:40 INR 1.22 (0.93-1.08) H 11/11/16 05:40 APTT 32.0 Seconds (23.7-30.8) H 11/11/16 05:40 Attending/Attestation - Attestation I have personally seen and examined this patient.: Yes I have fully participated in the care of the patient.: Yes I have reviewed all pertinent clinical information, including history, physical exam and plan: Yes
--- NOTE | 2016-11-04 21:29 | CP.PCM.PN ---
Objective - Vital Signs/Intake and Output Vital Signs (last 24 hours): Temp Pulse Resp BP Pulse Ox 98.4 F 94 H 18 132/90 98 11/04/16 17:51 11/04/16 18:00 11/04/16 17:51 11/04/16 17:59 11/04/16 06:00 - Medications Medications: Current Medications Acetaminophen (Tylenol 325mg Tab) 650 mg PO Q6H PRN PRN Reason: Pain, moderate (4-7) Last Admin: 11/01/16 17:49 Dose: 650 mg Artificial Tears (Artificial Tears) 0.2 ml OU DAILY PRN PRN Reason: Dry skin Last Admin: 11/03/16 17:53 Dose: 2 drop Ascorbic Acid (Vitamin C 500 Mg Tab) 500 mg PO BID [facility] Last Admin: 11/04/16 17:59 Dose: 500 mg Carvedilol (Coreg) 6.25 mg PO BID [facility] Last Admin: 11/04/16 17:59 Dose: 6.25 mg Ferrous Sulfate (Feosol Liq) 300 mg PO TID [facility] Last Admin: 11/04/16 17:59 Dose: 300 mg Insulin Detemir (Levemir) 5 unit SC BID [facility] Last Admin: 11/04/16 17:59 Dose: 5 unit Insulin Human Lispro (Humalog Med) 0 units SC ACHS [facility] PRN Reason: Protocol Last Admin: 11/04/16 18:00 Dose: 3 units Metoclopramide HCl (Reglan) 5 mg IVP ACHS [facility] Last Admin: 11/04/16 17:47 Dose: Not Given Multi-Ingredient Cream (Hydrocerin Cream) 0 ea TOP BID [facility] Multivitamins/Minerals (Therapeutic-M Tab) 1 tab PO 0800 [facility] Last Admin: 11/04/16 09:15 Dose: 1 tab Oxychlorosene Sodium (Clorpactin Wcs-90) 2 gm TOP DAILY [facility] Last Admin: 11/04/16 09:16 Dose: Not Given Pantoprazole Sodium (Protonix Ec Tab) 40 mg PO 0600,1600 [facility] Last Admin: 11/04/16 17:59 Dose: 40 mg Pregabalin (Lyrica) 100 mg PO TID [facility] Last Admin: 11/04/16 17:59 Dose: 100 mg Zinc Sulfate (Zinc Sulfate 220 Mg Cap) 220 mg PO DAILY [facility] Last Admin: 11/04/16 09:16 Dose: 220 mg - Labs Labs: 11/04/16 06:00 11/04/16 06:00 PT 13.3 Seconds (9.9-11.8) H 10/26/16 20:30 INR 1.23 (0.93-1.08) H 10/26/16 20:30 APTT 40.6 Seconds (23.7-30.8) H 10/26/16 20:30 Assessment and Plan (1) Acute renal failure Status: Acute (2) CKD (chronic kidney disease) Status: Chronic (3) Anemia Status: Acute (4) Metabolic acidosis Status: Acute (5) Sepsis Status: Acute
[2016-11-05 02:00] LABS: KAPPA/LAMBDA FREE RATIO 1.37 (0.26-1.65)
--- NOTE | 2016-11-05 04:47 | CP.PCM.PN ---
<Ata Ackerman - Last Filed: 11/05/16 12:25> Subjective - Date & Time of Evaluation Date of Evaluation: 11/05/16 Time of Evaluation: 07:45 - Subjective Subjective: Patient seen and examined at bedside. No acute overnight events. Patient resting comfortably sitting up at the edge of the bed and states she has an increased appetite. Offers no new complaints at this time. States her abdominal pain has resolved since admission. Denies f/c/p/sob/abdominal pain/n/v/diarrhea/ constipation/urinary symptoms. Physical Exam: - Constitutional Appears: NAD - Head Exam Head Exam: ATRAUMATIC, NORMAL INSPECTION, NORMOCEPHALIC - Eye Exam Eye Exam: EOMI, Normal appearance, PERRL Pupil Exam: NORMAL ACCOMODATION, PERRL - ENT Exam ENT Exam: Mucous Membranes Moist, Normal Exam - Neck Exam Neck exam: Positive for: Normal Inspection - Respiratory Exam Respiratory Exam: Clear to Auscultation Bilateral, NORMAL BREATHING PATTERN - Cardiovascular Exam Cardiovascular Exam: REGULAR RHYTHM, +S1, +S2 - GI/Abdominal Exam GI & Abdominal Exam: Normal Bowel Sounds, Soft. absent: Tenderness - Extremities Exam Extremities exam: left foot bandaged - Back Exam Back exam: CVA tenderness (L), CVA tenderness (R) - Neurological Exam Neurological exam: Alert, Oriented x3 - Psychiatric Exam Psychiatric exam: Normal Affect, Normal Mood Assessment: 36yo F PMH DM, HTN, HLD, RLE dvt and LLE ulcer who presents w/ Septic shock 2/2 pyelonephritis 2/2 untreated UTI. EMMETT still present, improving on dialysis. Metabolic acidosis resolved. Also found to be anemic, likely due to chronic disease (diabetes). Found to have UTI and LLE ulcer growing MRSA. MRI shows osteomyelitis of L calcaneus and diffuse plantar proximal aspect of L foot. s/p Merrem x6d. POD 2 s/p debridement. Patient given 1 unit of PRBCs Plan: Septic Shock - shock has resolved, BP stable - likely 2/2 osteomyelitis vs pyelo vs untreated UTI (pyuria noted in [place]- decreased from reported baseline) - pt clinically improving, shock has resolved off pressors - Sepsis criteria still met - Daptomycin - ID consulted, recs appreciated - L foot wound cx growing MRSA and corynebacterium - Ucx growing MRSA - tachycardia resolved- HR in the 90s - leukocytosis still present, but improving LLE ulcer - s/p I&D - wound care per podiatry - L Foot cx growing MRSA and corynbacterium - MRI L foot showed osteomyelitis of L calcaneus and diffuse plantar proximal aspect of L foot. - f/u sensitivities - podiatry consulted, recs appreciated EMMETT on CKD vs worsening CKD - Cr currently 4.9 from 4.0 yesterday, Dr. Preston recs- no need for IR consult today for tunneled dialysis access (IR consult in coming days for tunneled right IJ triple lumen for dialysis and abx administration pending clinical course), patient's creatinine needs to be monitored for additional days, mid line needs to removed to save vasculature for HD in future, on - Nephrology consulted, recs appreciated concerning long-term dialysis - RIJ in place Anemia likely 2/2 chronic dz - s/p 5u pRBC transfused - Hgb to 7.6 from 7.9 noted - likely due to chronic kidney 2/2 uncontrolled DM2 - feosol - Dr. Weaver consulted- appreciate recs - Hbg Electropheresis ordered and pending Hx DM - elevated glucose levels noted- patient started on levemir 7 BID - ISS med Peripheral Neuropathy - likely 2/2 to DM - Lyrica 100 TID Cardiomyopathy - ECHO shows EF of 35% - Cardioogy consulted, Dr. Ryan - Coreg 6.25 BID PPX - protonix - no scds due to foot infection, no lovenox due to renal function, no heparin due to decreasing H/H Patient seen, examined, case discussed with, and plan approved by attending physician, Dr Parker. Objective - Vital Signs/Intake and Output Vital Signs (last 24 hours): Temp Pulse Resp BP Pulse Ox 98.6 F 85 20 105/67 98 11/05/16 00:01 11/05/16 02:00 11/05/16 00:01 11/05/16 00:01 11/04/16 06:00 - Medications Medications: Current Medications Acetaminophen (Tylenol 325mg Tab) 650 mg PO Q6H PRN PRN Reason: Pain, moderate (4-7) Last Admin: 11/01/16 17:49 Dose: 650 mg Artificial Tears (Artificial Tears) 0.2 ml OU DAILY PRN PRN Reason: Dry skin Last Admin: 11/03/16 17:53 Dose: 2 drop Ascorbic Acid (Vitamin C 500 Mg Tab) 500 mg PO BID [facility] Last Admin: 11/04/16 17:59 Dose: 500 mg Carvedilol (Coreg) 6.25 mg PO BID [facility] Last Admin: 11/04/16 17:59 Dose: 6.25 mg Ferrous Sulfate (Feosol Liq) 300 mg PO TID [facility] Last Admin: 11/04/16 17:59 Dose: 300 mg Insulin Detemir (Levemir) 5 unit SC BID [facility] Last Admin: 11/04/16 17:59 Dose: 5 unit Insulin Human Lispro (Humalog Med) 0 units SC [facility] PRN Reason: Protocol Last Admin: 11/04/16 22:24 Dose: 1 units Metoclopramide HCl (Reglan) 5 mg IVP ACHS [facility] Last Admin: 11/04/16 22:24 Dose: 5 mg Multi-Ingredient Cream (Hydrocerin Cream) 0 ea TOP BID [facility] Multivitamins/Minerals (Therapeutic-M Tab) 1 tab PO 0800 [facility] Last Admin: 11/04/16 09:15 Dose: 1 tab Oxychlorosene Sodium (Clorpactin Wcs-90) 2 gm TOP DAILY [facility] Last Admin: 11/04/16 09:16 Dose: Not Given Pantoprazole Sodium (Protonix Ec Tab) 40 mg PO 0600,1600 [facility] Last Admin: 11/04/16 17:59 Dose: 40 mg Pregabalin (Lyrica) 100 mg PO TID [facility] Last Admin: 11/04/16 17:59 Dose: 100 mg Zinc Sulfate (Zinc Sulfate 220 Mg Cap) 220 mg PO DAILY [facility] Last Admin: 11/04/16 09:16 Dose: 220 mg - Labs Labs: 11/04/16 06:00 11/04/16 06:00 PT 13.3 Seconds (9.9-11.8) H 10/26/16 20:30 INR 1.23 (0.93-1.08) H 10/26/16 20:30 APTT 40.6 Seconds (23.7-30.8) H 10/26/16 20:30 <Agustin Parker - Last Filed: 11/05/16 16:05> Objective - Vital Signs/Intake and Output Vital Signs (last 24 hours): Temp Pulse Resp BP Pulse Ox 98.3 F 101 H 20 139/94 H 96 11/05/16 12:00 11/05/16 12:00 11/05/16 12:00 11/05/16 12:00 11/05/16 06:00 Intake and Output: 11/05/16 11/05/16 06:59 18:59 Intake Total 240 Output Total 600 Balance -360 - Medications Medications: Current Medications Acetaminophen (Tylenol 325mg Tab) 650 mg PO Q6H PRN PRN Reason: Pain, moderate (4-7) Last Admin: 11/01/16 17:49 Dose: 650 mg Artificial Tears (Artificial Tears) 0.2 ml OU DAILY PRN PRN Reason: Dry skin Last Admin: 11/03/16 17:53 Dose: 2 drop Ascorbic Acid (Vitamin C 500 Mg Tab) 500 mg PO BID [facility] Last Admin: 11/05/16 10:59 Dose: 500 mg Carvedilol (Coreg) 6.25 mg PO BID [facility] Last Admin: 11/05/16 10:54 Dose: 6.25 mg Ferrous Sulfate (Feosol Liq) 300 mg PO TID [facility] Last Admin: 11/05/16 14:34 Dose: 300 mg Daptomycin 370 mg/ Sodium (Chloride) 100 mls @ 200 mls/hr IV QOTHERDAY [facility] Stop: 11/10/16 10:01 Last Admin: 11/05/16 10:52 Dose: 200 mls/hr Insulin Detemir (Levemir) 7 unit SC BID [facility] Insulin Human Lispro (Humalog Med) 0 units SC ACHS [facility] PRN Reason: Protocol Last Admin: 11/05/16 14:32 Dose: 5 units Metoclopramide HCl (Reglan) 5 mg IVP ACHS [facility] Last Admin: 11/05/16 11:30 Dose: Not Given Multi-Ingredient Cream (Hydrocerin Cream) 0 ea TOP BID [facility] Last Admin: 11/05/16 10:55 Dose: 1 unit Multivitamins/Minerals (Therapeutic-M Tab) 1 tab PO 0800 [facility] Last Admin: 11/05/16 08:26 Dose: 1 tab Oxychlorosene Sodium (Clorpactin Wcs-90) 2 gm TOP DAILY [facility] Last Admin: 11/05/16 10:00 Dose: Not Given Pantoprazole Sodium (Protonix Ec Tab) 40 mg PO 0600,1600 [facility] Last Admin: 11/05/16 06:04 Dose: 40 mg Pregabalin (Lyrica) 100 mg PO TID [facility] Last Admin: 11/05/16 14:32 Dose: 100 mg Sodium Bicarbonate (Sodium Bicarbonate Tab) 1,300 mg PO TID [facility] Last Admin: 11/05/16 14:29 Dose: 1,300 mg Zinc Sulfate (Zinc Sulfate 220 Mg Cap) 220 mg PO DAILY [facility] Last Admin: 11/05/16 11:00 Dose: 220 mg - Labs Labs: 11/05/16 08:30 11/05/16 08:30 PT 13.3 Seconds (9.9-11.8) H 10/26/16 20:30 INR 1.23 (0.93-1.08) H 10/26/16 20:30 APTT 40.6 Seconds (23.7-30.8) H 10/26/16 20:30 Attending/Attestation - Attestation I have personally seen and examined this patient.: Yes I have fully participated in the care of the patient.: Yes I have reviewed all pertinent clinical information, including history, physical exam and plan: Yes Notes (Text): I have seen and examined the patient with the resident. Agree with the above note with the following addition/ exception: Briefly this is 36 year old female with history of IDDM, HTN, dyslipidemia, RLE DVT, wheel chair bound, 2 amputated toes of left leg and chronic LE ulcer who presented with severe sepsis secondary to acute pyelonephritis, Acute on chronic kidney disease, AGMA , electrolyte abnormalities, anemia and hypotension. Patient is alert, awake and denies any complaints. She still has leukocytosis and anemia. Patient underwent I&D and Left foot wound culture is growing corynebacterium/MRSA. Patient is currently on daptomycin. Intraoperative wound culture is positive for MRSA. Continue supportive boot. PT recommended CLARITA vs HWS. Her blood sugars were slightly improved than yesterday. She has been non compliant with carb consistent diet. Consult placed for diabetes education. Levemir was adjusted today. Her anemia is multifactorial s/p 1 unit PRBC . Heme eval pending. Discussed with snow maker. Patient still need to be monitored closely to evaluate if she will need HD fci. Urine output is increasing. She was also found to have cardiomyopathy and was started on Coreg. Cardiology evaluation appreciated. Long-term prognosis is poor secondary to multiple medical problems and noncompliance with follow-up. Upon discharge patient will follow up with Dr Bunch. Dr Agustin Parker
[2016-11-05] MEDS: Pantoprazole 40 mg EC Tab PO SCH ×2 (06:04→16:24)
[2016-11-05 07:36] LABS: HEMOGLOBIN F <1.0 Percent (<2.0)
[2016-11-05] MEDS: Multivitamin With Minerals Tab PO SCH (08:26)
[2016-11-05] MEDS: Insulin Lispro (humaLOG) MEDIUM Coverage SC SCH ×4 (08:26→23:30)
[2016-11-05 08:35] LABS: BASO # 0.02 K/mm3 (0.0-2.0); BASO % 0.1 % (0.0-3.0); EOS # 0.3 (0.0-0.7); EOS % 2.1 % (1.5-5.0); GRAN # 11.56 (1.4-6.5); GRAN % 78.6 % (50.0-68.0); LYMPH # 1.6 (1.2-3.4); LYMPH % 11.1 % (22.0-35.0); MEAN CELL VOLUME 86.7 fl (80.0-105.0); MEAN CORPUSCULAR HGB CONC 32.3 g/dl (31.0-37.0); MEAN PLATELET VOLUME 8.5 fl (7.0-11.0); MONO # 1.2 (0.1-0.6); MONO % 8.1 % (1.0-6.0); RED CELL DISTRIBUTION WIDTH 15.6 % (11.5-14.5); WHITE BLOOD COUNT 14.7 10^3/ul (4.5-11.0)
[2016-11-05 08:45] LABS: ALB/GLOB RATIO 0.6 (1.1-1.8); ALKALINE PHOSPHATASE 325 U/L (38-126); ALT/SGPT 24 U/L (7-56); AST/SGOT 19 U/L (14-36); BILIRUBIN,TOTAL 0.4 mg/dL (0.2-1.3); BLOOD UREA NITROGEN 44 mg/dL (7-21); CARBON DIOXIDE 17 mmol/L (21-33); CHLORIDE 111 mmol/L (95-110); GFR AFRICAN-AMERICAN 12; GLUCOSE,RANDOM 204 mg/dL (70-110); SODIUM 143 mmol/L (132-148); TOTAL PROTEIN 7.5 g/dL (5.8-8.3)
[2016-11-05 08:58] LABS: HEMATOCRIT 23.5 % (36.0-48.0)
[2016-11-05] MEDS ORDERED: DAPTOmycin 500 mg Inj (Cubicin) IV SCH (10:00)
[2016-11-05] MEDS: Oxychlorosene Topical 2 gm Packet TOP SCH ×2 (10:00→11:02)
--- NOTE | 2016-11-05 10:30 | CP.PCM.PN ---
<Brennan Cantu - Last Filed: 11/05/16 13:25> Subjective - Date & Time of Evaluation Date of Evaluation: 11/05/16 Time of Evaluation: 10:30 - Subjective Subjective: Podiatry Progress Note - Dr. Craven 36 year old female patient seen at bedside POD#5 left foot I&D (DOS: 10/31/16). Patient seen resting comfortably, AAOx3 and NAD. Patient is accompanied by mother at bedside. Patient denies any acute events overnight. Patient not wearing multipodus boots in bed at time of visit. When asked, patient and patient's mother states boots were never dispensed to patient. Per nursing, however, patient was given multipodus boots and took them off because they felt uncomfortable - patient refused to wear boots in bed. Patient denies any pain to her left foot today. Patient denies any changes to WoundVAC. Patient denies N /V/F/D/C/SOB/calf pain. No other pedal complaints at this time. Objective - Vital Signs/Intake and Output Vital Signs (last 24 hours): Temp Pulse Resp BP Pulse Ox 99.0 F 104 H 20 109/70 96 11/05/16 06:00 11/05/16 08:51 11/05/16 06:00 11/05/16 06:00 11/05/16 06:00 Intake and Output: 11/05/16 11/05/16 06:59 18:59 Intake Total 240 Output Total 600 Balance -360 - Medications Medications: Current Medications Acetaminophen (Tylenol 325mg Tab) 650 mg PO Q6H PRN PRN Reason: Pain, moderate (4-7) Last Admin: 11/01/16 17:49 Dose: 650 mg Artificial Tears (Artificial Tears) 0.2 ml OU DAILY PRN PRN Reason: Dry skin Last Admin: 11/03/16 17:53 Dose: 2 drop Ascorbic Acid (Vitamin C 500 Mg Tab) 500 mg PO BID [facility] Last Admin: 11/04/16 17:59 Dose: 500 mg Carvedilol (Coreg) 6.25 mg PO BID [facility] Last Admin: 11/04/16 17:59 Dose: 6.25 mg Ferrous Sulfate (Feosol Liq) 300 mg PO TID [facility] Last Admin: 11/04/16 17:59 Dose: 300 mg Daptomycin 370 mg/ Sodium (Chloride) 100 mls @ 200 mls/hr IV QOTHERDAY [facility] Stop: 11/10/16 10:01 Insulin Detemir (Levemir) 5 unit SC BID [facility] Last Admin: 11/04/16 17:59 Dose: 5 unit Insulin Human Lispro (Humalog Med) 0 units SC ACHS [facility] PRN Reason: Protocol Last Admin: 11/05/16 08:26 Dose: 3 units Metoclopramide HCl (Reglan) 5 mg IVP ACHS [facility] Last Admin: 11/05/16 08:30 Dose: Not Given Multi-Ingredient Cream (Hydrocerin Cream) 0 ea TOP BID [facility] Multivitamins/Minerals (Therapeutic-M Tab) 1 tab PO 0800 [facility] Last Admin: 11/05/16 08:26 Dose: 1 tab Oxychlorosene Sodium (Clorpactin Wcs-90) 2 gm TOP DAILY [facility] Last Admin: 11/04/16 09:16 Dose: Not Given Pantoprazole Sodium (Protonix Ec Tab) 40 mg PO 0600,1600 [facility] Last Admin: 11/05/16 06:04 Dose: 40 mg Pregabalin (Lyrica) 100 mg PO TID [facility] Last Admin: 11/04/16 17:59 Dose: 100 mg Sodium Bicarbonate (Sodium Bicarbonate Tab) 1,300 mg PO TID [facility] Zinc Sulfate (Zinc Sulfate 220 Mg Cap) 220 mg PO DAILY [facility] Last Admin: 11/04/16 09:16 Dose: 220 mg - Labs Labs: 11/05/16 08:30 11/05/16 08:30 PT 13.3 Seconds (9.9-11.8) H 10/26/16 20:30 INR 1.23 (0.93-1.08) H 10/26/16 20:30 APTT 40.6 Seconds (23.7-30.8) H 10/26/16 20:30 - Constitutional Appears: Well, Non-toxic, No Acute Distress, Unkempt - Extremities Exam Additional comments: WoundVAC to left foot appears clean/dry/intact with no leakage noted. Patient not wearing multipodus boots b/l. - Neurological Exam Neurological Exam: Alert, Oriented x3 - Psychiatric Exam Psychiatric exam: Normal Affect, Normal Mood Assessment and Plan - Assessment and Plan (Free Text) Assessment: 36 year old female 36 year old female PMHx IDDM, renal failure, sepsis, metabolic acidosis, UTI, CKD, anemia POD#5 left foot incision and drainage with wound debridement Plan: Patient seen and evaluated at bedside Discussed with attending, Dr. Craven Chart, vitals, labs reviewed - afebrile, leukocytosis 14.7 but improving ( trending downwards, yesterday 11/04 @ 15.3), glucose 204 No leaks present in WoundVAC; plan to change VAC tomorrow, Monday 11/06 Per ID, continue renally-adjusted ID Daptomycin; patient will need 6 weeks of abx Per physical therapy, offloading boot applied to left foot however was not on at time of visit Discussed with patient and nursing offloading boots should be on at all times while in bed. Patient to wear multipodus boots at all times while in bed to prevent pressure ulcer formation R heel. Patient extremely noncompliant despite informing patient right heel developing beginning stages of pressure ulcer. Continue Eucerin cream bilateral LE BID Prognosis for limb salvage poor Podiatry will continue to follow patient while in house <Logan Craven - Last Filed: 11/08/16 11:34> Objective - Vital Signs/Intake and Output Vital Signs (last 24 hours): Temp Pulse Resp BP Pulse Ox 98.4 F 102 H 20 129/85 95 11/07/16 17:55 11/08/16 06:00 11/07/16 17:55 11/07/16 18:28 11/07/16 05:59 Intake and Output: 11/08/16 11/08/16 06:59 18:59 Intake Total 1960 120 Output Total 200 Balance 1960 -80 - Medications Medications: Current Medications Acetaminophen (Tylenol 325mg Tab) 650 mg PO Q6H PRN PRN Reason: Pain, moderate (4-7) Last Admin: 11/01/16 17:49 Dose: 650 mg Artificial Tears (Artificial Tears) 0.2 ml OU DAILY PRN PRN Reason: Dry skin Last Admin: 11/07/16 10:25 Dose: 2 drop Ascorbic Acid (Vitamin C 500 Mg Tab) 500 mg PO BID [facility] Last Admin: 11/08/16 10:34 Dose: 500 mg Carvedilol (Coreg) 6.25 mg PO BID [facility] Last Admin: 11/08/16 10:34 Dose: 6.25 mg Collagenase (Santyl) 0 gm TOP DAILY [facility] Last Admin: 11/08/16 10:35 Dose: 1 applic Ferrous Sulfate (Feosol Liq) 300 mg PO TID [facility] Last Admin: 11/08/16 10:34 Dose: 300 mg Daptomycin 370 mg/ Sodium (Chloride) 100 mls @ 200 mls/hr IV QOTHERDAY [facility] Stop: 11/10/16 10:01 Last Admin: 11/07/16 12:24 Dose: 200 mls/hr Sodium Bicarbonate 50 meq/ (Sodium Chloride) 1,050 mls @ 100 mls/hr IV .[id number] [facility] Last Admin: 11/07/16 22:15 Dose: 100 mls/hr Insulin Detemir (Levemir) 7 unit SC BID [facility] Last Admin: 11/08/16 10:33 Dose: 7 unit Insulin Human Lispro (Humalog Med) 0 units SC ACHS [facility] PRN Reason: Protocol Last Admin: 11/08/16 10:33 Dose: 3 units Metoclopramide HCl (Reglan) 5 mg IVP ACHS [facility] Last Admin: 11/08/16 08:48 Dose: Not Given Multi-Ingredient Cream (Hydrocerin Cream) 0 ea TOP BID [facility] Last Admin: 11/08/16 10:35 Dose: 1 unit Multivitamins/Minerals (Therapeutic-M Tab) 1 tab PO 0800 [facility] Last Admin: 11/08/16 10:34 Dose: 1 tab Oxychlorosene Sodium (Clorpactin Wcs-90) 2 gm TOP DAILY [facility] Last Admin: 11/08/16 10:35 Dose: 2 gm Pantoprazole Sodium (Protonix Ec Tab) 40 mg PO 0600,1600 [facility] Last Admin: 11/08/16 05:31 Dose: 40 mg Pregabalin (Lyrica) 100 mg PO TID [facility] Last Admin: 11/08/16 10:34 Dose: 100 mg Sodium Bicarbonate (Sodium Bicarbonate Tab) 2,600 mg PO QID [facility] Last Admin: 11/08/16 10:34 Dose: 2,600 mg Zinc Sulfate (Zinc Sulfate 220 Mg Cap) 220 mg PO DAILY [facility] Last Admin: 11/08/16 10:34 Dose: 220 mg - Labs Labs: 11/08/16 07:00 11/08/16 07:00 PT 13.3 Seconds (9.9-11.8) H 10/26/16 20:30 INR 1.23 (0.93-1.08) H 10/26/16 20:30 APTT 28.7 Seconds (23.7-30.8) 11/06/16 05:30 Attending/Attestation - Attestation I have personally seen and examined this patient.: Yes I have fully participated in the care of the patient.: Yes I have reviewed all pertinent clinical information, including history, physical exam and plan: Yes
[2016-11-05] MEDS: Insulin Detemir 100 units/ml Vial (Levemir) SC SCH ×2 (10:53→18:01)
[2016-11-05] MEDS: Ferrous Sulfate 300 mg/5 mL Liq UD PO SCH ×3 (10:54→18:01)
[2016-11-05] MEDS: Hydrocerin(120 gm) TOP SCH ×2 (10:55→18:02)
[2016-11-05 12:23] LABS: ABNORMAL PROTEIN BAND 1 0.41 g/dL (None Detected); BETA 1 GLOBULIN 0.3 g/dL (0.4-0.6); BETA 2 GLOBULIN 0.5 g/dL (0.2-0.5); GAMMA GLOBULIN 2.2 g/dL (0.8-1.7)
[2016-11-05 12:23] LABS: GAMMA GLOBULIN 36.5 Relative %
--- NOTE | 2016-11-05 12:42 | CP.PCM.PN ---
Subjective - Date & Time of Evaluation Date of Evaluation: 11/05/16 Time of Evaluation: 09:50 - Subjective Subjective: Comfortable, not in distress, afebrile, less pain in the left foot. Objective - Vital Signs/Intake and Output Vital Signs (last 24 hours): Temp Pulse Resp BP Pulse Ox 99.0 F 92 H 20 109/70 96 11/05/16 06:00 11/05/16 06:00 11/05/16 06:00 11/05/16 06:00 11/05/16 06:00 Intake and Output: 11/05/16 11/05/16 06:59 18:59 Intake Total 240 Output Total 600 Balance -360 - Medications Medications: Current Medications Acetaminophen (Tylenol 325mg Tab) 650 mg PO Q6H PRN PRN Reason: Pain, moderate (4-7) Last Admin: 11/01/16 17:49 Dose: 650 mg Artificial Tears (Artificial Tears) 0.2 ml OU DAILY PRN PRN Reason: Dry skin Last Admin: 11/03/16 17:53 Dose: 2 drop Ascorbic Acid (Vitamin C 500 Mg Tab) 500 mg PO BID [facility] Last Admin: 11/04/16 17:59 Dose: 500 mg Carvedilol (Coreg) 6.25 mg PO BID [facility] Last Admin: 11/04/16 17:59 Dose: 6.25 mg Daptomycin (Cubicin) 370 mg 6 mg/kg (370 mg) IV QOTHERDAY [facility] PRN Reason: Protocol Stop: 11/10/16 10:01 Ferrous Sulfate (Feosol Liq) 300 mg PO TID [facility] Last Admin: 11/04/16 17:59 Dose: 300 mg Insulin Detemir (Levemir) 5 unit SC BID [facility] Last Admin: 11/04/16 17:59 Dose: 5 unit Insulin Human Lispro (Humalog Med) 0 units SC ACHS [facility] PRN Reason: Protocol Last Admin: 11/04/16 22:24 Dose: 1 units Metoclopramide HCl (Reglan) 5 mg IVP ACHS [facility] Last Admin: 11/04/16 22:24 Dose: 5 mg Multi-Ingredient Cream (Hydrocerin Cream) 0 ea TOP BID [facility] Multivitamins/Minerals (Therapeutic-M Tab) 1 tab PO 0800 [facility] Last Admin: 11/04/16 09:15 Dose: 1 tab Oxychlorosene Sodium (Clorpactin Wcs-90) 2 gm TOP DAILY [facility] Last Admin: 11/04/16 09:16 Dose: Not Given Pantoprazole Sodium (Protonix Ec Tab) 40 mg PO 0600,1600 [facility] Last Admin: 11/05/16 06:04 Dose: 40 mg Pregabalin (Lyrica) 100 mg PO TID [facility] Last Admin: 11/04/16 17:59 Dose: 100 mg Zinc Sulfate (Zinc Sulfate 220 Mg Cap) 220 mg PO DAILY [facility] Last Admin: 11/04/16 09:16 Dose: 220 mg - Labs Labs: 11/04/16 06:00 11/04/16 06:00 PT 13.3 Seconds (9.9-11.8) H 10/26/16 20:30 INR 1.23 (0.93-1.08) H 10/26/16 20:30 APTT 40.6 Seconds (23.7-30.8) H 10/26/16 20:30 - Constitutional Appears: Non-toxic, No Acute Distress - Head Exam Head Exam: NORMAL INSPECTION - ENT Exam ENT Exam: Mucous Membranes Moist - Neck Exam Neck Exam: absent: Meningismus - Respiratory Exam Respiratory Exam: Decreased Breath Sounds - Cardiovascular Exam Cardiovascular Exam: +S1, +S2 - GI/Abdominal Exam GI & Abdominal Exam: Soft. absent: Tenderness - Extremities Exam Additional comments: left foot with dressings in place Assessment and Plan - Assessment and Plan (Free Text) Plan: Assessment Severe sepsis with acute renal failure due to acute pyelonephritis, now growing MRSA in the urine as well as left foot wound infection/abscess with MRSA, MRI showing osteomyelitis, S/P I and D POD #5 DM with diabetic neuropathy HTN history of right DVT bilateral foot ulcers Plan continue renally-adjusted IV Daptomycin; wound cx showing MRSA; Corynebacterium is probably a contaminant reviewed MRI of left foot showing osteomyelitis - will need 6 weeks of antibiotics follow up 2D echo, with weekly ESR, CRP, CBC, CMP, CPK levels will continue to follow clinically while the patient is in the hospital
--- NOTE | 2016-11-05 17:43 | PN ---
SUBJECTIVE: The patient has no chest pain. No shortness of breath at this time. PHYSICAL EXAMINATION VITAL SIGNS: Blood pressure 139/94, heart rate 101, temperature 98.6, respirations 20. HEENT: Pale conjunctivae. CHEST: Clear. HEART: S1 and S2 are regular. EXTREMITIES: Dressing on the left foot. LABORATORY DATA: Glucose is 204. Hemoglobin and hematocrit 7.6 and 23.5, white count 14.7, platelet count 346,000. ASSESSMENT: 1. Congestive heart failure. 2. Acute renal failure, the patient received hemodialysis twice so far. 3. Status post incision of the left foot. 4. Anemia. 5. Uncontrolled hypertension. 6. Uncontrolled diabetes mellitus. RECOMMENDATIONS: Continue current carvedilol 6.5 mg twice a day. The patient is not a suitable candidate for either MIHIR inhibitors or Aldactone. Consider subcutaneous heparin at 500 units twice a day if there is no contraindication. Semaj Ryan MD
--- NOTE | 2016-11-05 20:19 | CP.PCM.PN ---
Subjective - Date & Time of Evaluation Date of Evaluation: 11/05/16 Time of Evaluation: 11:30 - Subjective Subjective: Patient denies any shortness of breath; tolerating diet; Objective - Vital Signs/Intake and Output Vital Signs (last 24 hours): Temp Pulse Resp BP Pulse Ox 98.9 F 103 H 18 123/86 96 11/05/16 18:00 11/05/16 18:00 11/05/16 18:00 11/05/16 18:00 11/05/16 06:00 - Medications Medications: Current Medications Acetaminophen (Tylenol 325mg Tab) 650 mg PO Q6H PRN PRN Reason: Pain, moderate (4-7) Last Admin: 11/01/16 17:49 Dose: 650 mg Artificial Tears (Artificial Tears) 0.2 ml OU DAILY PRN PRN Reason: Dry skin Last Admin: 11/03/16 17:53 Dose: 2 drop Ascorbic Acid (Vitamin C 500 Mg Tab) 500 mg PO BID [facility] Last Admin: 11/05/16 17:55 Dose: 500 mg Carvedilol (Coreg) 6.25 mg PO BID [facility] Last Admin: 11/05/16 17:55 Dose: 6.25 mg Ferrous Sulfate (Feosol Liq) 300 mg PO TID [facility] Last Admin: 11/05/16 18:01 Dose: 300 mg Daptomycin 370 mg/ Sodium (Chloride) 100 mls @ 200 mls/hr IV QOTHERDAY [facility] Stop: 11/10/16 10:01 Last Admin: 11/05/16 10:52 Dose: 200 mls/hr Insulin Detemir (Levemir) 7 unit SC BID [facility] Last Admin: 11/05/16 18:01 Dose: 7 unit Insulin Human Lispro (Humalog Med) 0 units SC ACHS [facility] PRN Reason: Protocol Last Admin: 11/05/16 16:23 Dose: 3 units Metoclopramide HCl (Reglan) 5 mg IVP ACHS [facility] Last Admin: 11/05/16 16:33 Dose: Not Given Multi-Ingredient Cream (Hydrocerin Cream) 0 ea TOP BID [facility] Last Admin: 11/05/16 18:02 Dose: 1 unit Multivitamins/Minerals (Therapeutic-M Tab) 1 tab PO 0800 [facility] Last Admin: 11/05/16 08:26 Dose: 1 tab Oxychlorosene Sodium (Clorpactin Wcs-90) 2 gm TOP DAILY [facility] Last Admin: 11/05/16 10:00 Dose: Not Given Pantoprazole Sodium (Protonix Ec Tab) 40 mg PO 0600,1600 [facility] Last Admin: 11/05/16 16:24 Dose: 40 mg Pregabalin (Lyrica) 100 mg PO TID [facility] Last Admin: 11/05/16 18:02 Dose: 100 mg Sodium Bicarbonate (Sodium Bicarbonate Tab) 1,300 mg PO TID [facility] Last Admin: 11/05/16 17:54 Dose: 1,300 mg Zinc Sulfate (Zinc Sulfate 220 Mg Cap) 220 mg PO DAILY [facility] Last Admin: 11/05/16 11:00 Dose: 220 mg - Labs Labs: 11/05/16 08:30 11/05/16 08:30 PT 13.3 Seconds (9.9-11.8) H 10/26/16 20:30 INR 1.23 (0.93-1.08) H 10/26/16 20:30 APTT 40.6 Seconds (23.7-30.8) H 10/26/16 20:30 - Constitutional Appears: Non-toxic, No Acute Distress - Head Exam Head Exam: NORMAL INSPECTION - Eye Exam Eye Exam: Normal appearance - ENT Exam ENT Exam: Mucous Membranes Moist - Respiratory Exam Respiratory Exam: Clear to Ausculation Bilateral, NORMAL BREATHING PATTERN - Cardiovascular Exam Cardiovascular Exam: RRR, +S1, +S2 - GI/Abdominal Exam GI & Abdominal Exam: Soft. absent: Distended, Tenderness - Extremities Exam Additional comments: no leg edema; - Neurological Exam Neurological Exam: Alert, Awake - Psychiatric Exam Psychiatric exam: Normal Affect, Normal Mood - Skin Skin Exam: Normal Color, Warm. absent: Cyanosis Assessment and Plan (1) Acute renal failure Assessment & Plan: Clinically ATN; now non-oliguric; off HD since 3 days but serum creat continues to rise above what was thought to be baseline last month; once creat levels off , will obtain 24 hr creat clearance Status: Acute (2) CKD (chronic kidney disease) Assessment & Plan: Etiology thought to be DM; however, further workup now revealing presence of monoclonal free light chain; in setting of massive proteinuria on random urine prot/creat, possibility of amyloidosis needs to be considered; -needs input from hematology -still need labs from pmd to assess renal function over past year Status: Chronic (3) Anemia Assessment & Plan: Hgb trending down after prbc transfusion; s/p dose of aranesp, will take time to see effect; transfuse prn; Status: Acute (4) Metabolic acidosis Assessment & Plan: Worsening off HD; starting sodium bicarb 1300 mg tid; Status: Acute (5) Sepsis Assessment & Plan: On daptomycin every other day, correctly dosed for CrCl < 20; Status: Acute
--- NOTE | 2016-11-06 04:48 | CP.PCM.PN ---
<Ata Ackerman - Last Filed: 11/06/16 11:57> Subjective - Date & Time of Evaluation Date of Evaluation: 11/06/16 Time of Evaluation: 09:20 - Subjective Subjective: Subjective: Patient seen and examined at bedside. No acute overnight events. Patient resting comfortably in bed. States that she wants more time for kidneys to recover prior to further considering IJ placement for HD. Offers no new complaints at this time. States her abdominal pain has resolved since admission. Denies f/c/p/sob/abdominal pain/n/v/diarrhea/constipation/urinary symptoms. Physical Exam: - Constitutional Appears: NAD - Head Exam Head Exam: ATRAUMATIC, NORMAL INSPECTION, NORMOCEPHALIC - Eye Exam Eye Exam: EOMI, Normal appearance, PERRL Pupil Exam: NORMAL ACCOMODATION, PERRL - ENT Exam ENT Exam: Mucous Membranes Moist, Normal Exam - Neck Exam Neck exam: Positive for: Normal Inspection - Respiratory Exam Respiratory Exam: Clear to Auscultation Bilateral, NORMAL BREATHING PATTERN - Cardiovascular Exam Cardiovascular Exam: REGULAR RHYTHM, +S1, +S2 - GI/Abdominal Exam GI & Abdominal Exam: Normal Bowel Sounds, Soft. absent: Tenderness - Extremities Exam Extremities exam: left foot bandaged - Back Exam Back exam: CVA tenderness (L), CVA tenderness (R) - Neurological Exam Neurological exam: Alert, Oriented x3 - Psychiatric Exam Psychiatric exam: Normal Affect, Normal Mood Assessment: 36yo F PMH DM, HTN, HLD, RLE dvt and LLE ulcer who presents w/ Septic shock 2/2 pyelonephritis 2/2 untreated UTI. EMMETT still present, improving on dialysis. Metabolic acidosis resolved. Also found to be anemic, likely due to chronic disease (diabetes). Found to have UTI and LLE ulcer growing MRSA. MRI shows osteomyelitis of L calcaneus and diffuse plantar proximal aspect of L foot. s/p Merrem x6d. POD 2 s/p debridement. Patient given 1 unit of PRBCs Plan: Septic Shock - shock has resolved, BP stable - likely 2/2 osteomyelitis vs pyelo vs untreated UTI (urine noted in sorenson container) - pt clinically improving, shock has resolved off pressors - Sepsis criteria still met - Daptomycin - ID consulted, recs appreciated - L foot wound cx growing MRSA and corynebacterium - Ucx growing MRSA - tachycardia resolved- HR in the 90s - leukocytosis still present, but improving LLE ulcer - s/p I&D - wound care per podiatry - L Foot cx growing MRSA and corynbacterium - MRI L foot showed osteomyelitis of L calcaneus and diffuse plantar proximal aspect of L foot. - f/u sensitivities - podiatry consulted, recs appreciated EMMETT on CKD vs worsening CKD - Cr currently 5.7 from 4.9 yesterday, Dr. Preston recs- patient does not want tunneled dialysis access, patient's creatinine needs to be monitored for additional days- need records from PMD to establish baseline creatinine, mid line needs to removed to save vasculature for HD in future if patient consents - Nephrology consulted, recs appreciated concerning long-term dialysis - RIJ in place Anemia likely 2/2 chronic dz - s/p 5u pRBC transfused - Hgb to 7.4 from 7.6 noted - likely due to chronic kidney 2/2 uncontrolled DM2 - feosol - Dr. Weaver consulted- appreciate recs-- need to reconsult as kappa/lambda are elevated Hx DM -glucose levels noted- continue with levemir 7 BID - ISS med Peripheral Neuropathy - likely 2/2 to DM - Lyrica 100 TID Cardiomyopathy - ECHO shows EF of 35% - Cardioogy consulted, Dr. Ryan - Coreg 6.25 BID PPX - protonix - no scds due to foot infection, no lovenox due to renal function, no heparin due to decreasing H/H Disposition: - patient moved to remote [facility] - possible d/c friday pending nephro recs Patient seen, examined, case discussed with, and plan approved by attending physician, Dr Parker. Objective - Vital Signs/Intake and Output Vital Signs (last 24 hours): Temp Pulse Resp BP Pulse Ox 98.5 F 97 H 18 107/66 96 11/06/16 00:01 11/06/16 02:00 11/06/16 00:01 11/06/16 00:01 11/05/16 06:00 - Medications Medications: Current Medications Acetaminophen (Tylenol 325mg Tab) 650 mg PO Q6H PRN PRN Reason: Pain, moderate (4-7) Last Admin: 11/01/16 17:49 Dose: 650 mg Artificial Tears (Artificial Tears) 0.2 ml OU DAILY PRN PRN Reason: Dry skin Last Admin: 11/03/16 17:53 Dose: 2 drop Ascorbic Acid (Vitamin C 500 Mg Tab) 500 mg PO BID [facility] Last Admin: 11/05/16 17:55 Dose: 500 mg Carvedilol (Coreg) 6.25 mg PO BID [facility] Last Admin: 11/05/16 17:55 Dose: 6.25 mg Ferrous Sulfate (Feosol Liq) 300 mg PO TID [facility] Last Admin: 11/05/16 18:01 Dose: 300 mg Daptomycin 370 mg/ Sodium (Chloride) 100 mls @ 200 mls/hr IV QOTHERDAY [facility] Stop: 11/10/16 10:01 Last Admin: 11/05/16 10:52 Dose: 200 mls/hr Insulin Detemir (Levemir) 7 unit SC BID [facility] Last Admin: 11/05/16 18:01 Dose: 7 unit Insulin Human Lispro (Humalog Med) 0 units SC [facility] PRN Reason: Protocol Last Admin: 11/05/16 23:30 Dose: 2 units Metoclopramide HCl (Reglan) 5 mg IVP ACHS [facility] Last Admin: 11/05/16 21:22 Dose: 5 mg Multi-Ingredient Cream (Hydrocerin Cream) 0 ea TOP BID [facility] Last Admin: 11/05/16 18:02 Dose: 1 unit Multivitamins/Minerals (Therapeutic-M Tab) 1 tab PO 0800 [facility] Last Admin: 11/05/16 08:26 Dose: 1 tab Oxychlorosene Sodium (Clorpactin Wcs-90) 2 gm TOP DAILY [facility] Last Admin: 11/05/16 10:00 Dose: Not Given Pantoprazole Sodium (Protonix Ec Tab) 40 mg PO 0600,1600 [facility] Last Admin: 11/05/16 16:24 Dose: 40 mg Pregabalin (Lyrica) 100 mg PO TID [facility] Last Admin: 11/05/16 18:02 Dose: 100 mg Sodium Bicarbonate (Sodium Bicarbonate Tab) 1,300 mg PO TID [facility] Last Admin: 11/05/16 17:54 Dose: 1,300 mg Zinc Sulfate (Zinc Sulfate 220 Mg Cap) 220 mg PO DAILY [facility] Last Admin: 11/05/16 11:00 Dose: 220 mg - Labs Labs: 11/05/16 08:30 11/05/16 08:30 PT 13.3 Seconds (9.9-11.8) H 10/26/16 20:30 INR 1.23 (0.93-1.08) H 10/26/16 20:30 APTT 40.6 Seconds (23.7-30.8) H 10/26/16 20:30 <KeithAgustin Arguello - Last Filed: 11/06/16 14:59> Objective - Vital Signs/Intake and Output Vital Signs (last 24 hours): Temp Pulse Resp BP Pulse Ox 99 F 101 H 18 127/87 96 11/06/16 11:48 11/06/16 11:48 11/06/16 11:48 11/06/16 11:48 11/06/16 06:00 Intake and Output: 11/06/16 11/06/16 06:59 18:59 Intake Total 260 Output Total 350 Balance -90 - Medications Medications: Current Medications Acetaminophen (Tylenol 325mg Tab) 650 mg PO Q6H PRN PRN Reason: Pain, moderate (4-7) Last Admin: 11/01/16 17:49 Dose: 650 mg Artificial Tears (Artificial Tears) 0.2 ml OU DAILY PRN PRN Reason: Dry skin Last Admin: 11/03/16 17:53 Dose: 2 drop Ascorbic Acid (Vitamin C 500 Mg Tab) 500 mg PO BID [facility] Last Admin: 11/06/16 09:02 Dose: 500 mg Carvedilol (Coreg) 6.25 mg PO BID [facility] Last Admin: 11/06/16 09:03 Dose: 6.25 mg Collagenase (Santyl) 0 gm TOP DAILY [facility] Ferrous Sulfate (Feosol Liq) 300 mg PO TID [facility] Last Admin: 11/06/16 13:17 Dose: 300 mg Daptomycin 370 mg/ Sodium (Chloride) 100 mls @ 200 mls/hr IV QOTHERDAY [facility] Stop: 11/10/16 10:01 Last Admin: 11/05/16 10:52 Dose: 200 mls/hr Sodium Chloride (Sodium Chloride 0.45%) 1,000 mls @ 100 mls/hr IV .Q10H [facility] Last Admin: 11/06/16 10:51 Dose: 100 mls/hr Insulin Detemir (Levemir) 7 unit SC BID [facility] Last Admin: 11/06/16 09:01 Dose: 7 unit Insulin Human Lispro (Humalog Med) 0 units SC ACHS [facility] PRN Reason: Protocol Last Admin: 11/06/16 12:36 Dose: Not Given Metoclopramide HCl (Reglan) 5 mg IVP ACHS [facility] Last Admin: 11/06/16 12:36 Dose: Not Given Multi-Ingredient Cream (Hydrocerin Cream) 0 ea TOP BID [facility] Last Admin: 11/06/16 10:50 Dose: 1 unit Multivitamins/Minerals (Therapeutic-M Tab) 1 tab PO 0800 [facility] Last Admin: 11/06/16 09:04 Dose: 1 tab Oxychlorosene Sodium (Clorpactin Wcs-90) 2 gm TOP DAILY [facility] Last Admin: 11/06/16 09:04 Dose: Not Given Pantoprazole Sodium (Protonix Ec Tab) 40 mg PO 0600,1600 [facility] Last Admin: 11/06/16 05:28 Dose: 40 mg Pregabalin (Lyrica) 100 mg PO TID [facility] Last Admin: 11/06/16 13:17 Dose: 100 mg Sodium Bicarbonate (Sodium Bicarbonate Tab) 1,300 mg PO TID [facility] Last Admin: 11/06/16 13:17 Dose: 1,300 mg Zinc Sulfate (Zinc Sulfate 220 Mg Cap) 220 mg PO DAILY [facility] Last Admin: 11/06/16 09:02 Dose: 220 mg - Labs Labs: 11/06/16 05:30 11/06/16 05:30 PT 13.3 Seconds (9.9-11.8) H 10/26/16 20:30 INR 1.23 (0.93-1.08) H 10/26/16 20:30 APTT 28.7 Seconds (23.7-30.8) 11/06/16 05:30 Attending/Attestation - Attestation I have personally seen and examined this patient.: Yes I have fully participated in the care of the patient.: Yes I have reviewed all pertinent clinical information, including history, physical exam and plan: Yes Notes (Text): I have seen and examined the patient with the resident. Agree with the above note with the following addition/ exception: Briefly this is 36 year old female with history of IDDM, HTN, dyslipidemia, RLE DVT, wheel chair bound, 2 amputated toes of left leg and chronic LE ulcer who presented with severe sepsis secondary to acute pyelonephritis, Acute on chronic kidney disease, AGMA , electrolyte abnormalities, anemia and hypotension. Patient is alert, awake and denies any complaints. She still has leukocytosis and anemia. Patient underwent I&D and Left foot wound culture is growing corynebacterium (contaminant) and MRSA. Patient is currently on daptomycin. Intraoperative wound culture is positive for MRSA. Continue supportive boot. PT recommended CLARITA vs HWS. Her blood sugars have improved. She has been non compliant with carb consistent diet. Her anemia is multifactorial s/p 1 unit PRBC . Heme eval pending. Her creatinine is getting worse. Discussed with model and pattern supervisor. 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 Patient is not oliguric. She was also found to have cardiomyopathy and was started on Coreg. Cardiology evaluation appreciated. Long -term prognosis is poor secondary to multiple medical problems and noncompliance with follow-up. Upon discharge patient will follow up with Dr Bunch. Dr Agustin Parker
[2016-11-06] MEDS: Pantoprazole 40 mg EC Tab PO SCH ×2 (05:28→18:35)
[2016-11-06 06:02] LABS: BASO # 0.03 K/mm3 (0.0-2.0); BASO % 0.2 % (0.0-3.0); EOS # 0.3 (0.0-0.7); GRAN # 11.63 (1.4-6.5); GRAN % 75.4 % (50.0-68.0); LYMPH # 2.1 (1.2-3.4); LYMPH % 13.6 % (22.0-35.0); MEAN CELL VOLUME 88.5 fl (80.0-105.0); MEAN CORPUSCULAR HEMOGLOBIN 28.2 pg (25.0-35.0); MEAN CORPUSCULAR HGB CONC 31.9 g/dl (31.0-37.0); MEAN PLATELET VOLUME 8.7 fl (7.0-11.0); MONO # 1.4 (0.1-0.6); MONO % 8.8 % (1.0-6.0); RED CELL DISTRIBUTION WIDTH 16.2 % (11.5-14.5); WHITE BLOOD COUNT 15.4 10^3/ul (4.5-11.0)
[2016-11-06 06:07] LABS: HEMATOCRIT 23.2 % (36.0-48.0)
[2016-11-06 06:38] LABS: ALB/GLOB RATIO 0.6 (1.1-1.8); BILIRUBIN,TOTAL 0.3 mg/dL (0.2-1.3); POTASSIUM 4.2 mmol/L (3.6-5.0); TOTAL PROTEIN 7.4 g/dL (5.8-8.3)
[2016-11-06] MEDS: Insulin Lispro (humaLOG) MEDIUM Coverage SC SCH ×4 (08:19→21:30)
[2016-11-06] MEDS: Insulin Detemir 100 units/ml Vial (Levemir) SC SCH ×2 (09:01→18:34)
[2016-11-06] MEDS: Ferrous Sulfate 300 mg/5 mL Liq UD PO SCH ×3 (09:02→17:46)
[2016-11-06] MEDS: Multivitamin With Minerals Tab PO SCH (09:04)
[2016-11-06] MEDS: Oxychlorosene Topical 2 gm Packet TOP SCH (09:04)
--- NOTE | 2016-11-06 09:56 | CP.PCM.PN ---
Subjective - Date & Time of Evaluation Date of Evaluation: 11/06/16 Time of Evaluation: 09:00 - Subjective Subjective: No pain on the left leg and foot currently, still bothered by the dialysis catheter on her right neck area, no fevers overnight, no diarrhea. Objective - Vital Signs/Intake and Output Vital Signs (last 24 hours): Temp Pulse Resp BP Pulse Ox 99.1 F 100 H 20 116/78 96 11/06/16 06:00 11/06/16 06:00 11/06/16 06:00 11/06/16 06:00 11/06/16 06:00 Intake and Output: 11/05/16 11/06/16 18:59 06:59 Intake Total 260 Output Total 350 Balance -90 - Medications Medications: Current Medications Acetaminophen (Tylenol 325mg Tab) 650 mg PO Q6H PRN PRN Reason: Pain, moderate (4-7) Last Admin: 11/01/16 17:49 Dose: 650 mg Artificial Tears (Artificial Tears) 0.2 ml OU DAILY PRN PRN Reason: Dry skin Last Admin: 11/03/16 17:53 Dose: 2 drop Ascorbic Acid (Vitamin C 500 Mg Tab) 500 mg PO BID [facility] Last Admin: 11/05/16 17:55 Dose: 500 mg Carvedilol (Coreg) 6.25 mg PO BID [facility] Last Admin: 11/05/16 17:55 Dose: 6.25 mg Ferrous Sulfate (Feosol Liq) 300 mg PO TID [facility] Last Admin: 11/05/16 18:01 Dose: 300 mg Daptomycin 370 mg/ Sodium (Chloride) 100 mls @ 200 mls/hr IV QOTHERDAY [facility] Stop: 11/10/16 10:01 Last Admin: 11/05/16 10:52 Dose: 200 mls/hr Insulin Detemir (Levemir) 7 unit SC BID [facility] Last Admin: 11/05/16 18:01 Dose: 7 unit Insulin Human Lispro (Humalog Med) 0 units SC ACHS [facility] PRN Reason: Protocol Last Admin: 11/05/16 23:30 Dose: 2 units Metoclopramide HCl (Reglan) 5 mg IVP ACHS [facility] Last Admin: 11/05/16 21:22 Dose: 5 mg Multi-Ingredient Cream (Hydrocerin Cream) 0 ea TOP BID [facility] Last Admin: 11/05/16 18:02 Dose: 1 unit Multivitamins/Minerals (Therapeutic-M Tab) 1 tab PO 0800 [facility] Last Admin: 11/05/16 08:26 Dose: 1 tab Oxychlorosene Sodium (Clorpactin Wcs-90) 2 gm TOP DAILY [facility] Last Admin: 11/05/16 10:00 Dose: Not Given Pantoprazole Sodium (Protonix Ec Tab) 40 mg PO 0600,1600 [facility] Last Admin: 11/06/16 05:28 Dose: 40 mg Pregabalin (Lyrica) 100 mg PO TID [facility] Last Admin: 11/05/16 18:02 Dose: 100 mg Sodium Bicarbonate (Sodium Bicarbonate Tab) 1,300 mg PO TID [facility] Last Admin: 11/05/16 17:54 Dose: 1,300 mg Zinc Sulfate (Zinc Sulfate 220 Mg Cap) 220 mg PO DAILY [facility] Last Admin: 11/05/16 11:00 Dose: 220 mg - Labs Labs: 11/06/16 05:30 11/05/16 08:30 PT 13.3 Seconds (9.9-11.8) H 10/26/16 20:30 INR 1.23 (0.93-1.08) H 10/26/16 20:30 APTT 28.7 Seconds (23.7-30.8) 11/06/16 05:30 - Constitutional Appears: Non-toxic, No Acute Distress - Head Exam Head Exam: NORMAL INSPECTION - Neck Exam Neck Exam: absent: Meningismus Additional comments: right neck dialysis catheter in place - Respiratory Exam Respiratory Exam: Decreased Breath Sounds - Cardiovascular Exam Cardiovascular Exam: +S1, +S2 - GI/Abdominal Exam GI & Abdominal Exam: Soft. absent: Tenderness - Extremities Exam Additional comments: left leg and foot with dry dressings and wound vacuum in place Assessment and Plan - Assessment and Plan (Free Text) Plan: Assessment Severe sepsis with acute renal failure due to acute pyelonephritis, now growing MRSA in the urine as well as left foot wound infection/abscess with MRSA, MRI showing osteomyelitis, S/P I and D POD #6 DM with diabetic neuropathy HTN history of right DVT bilateral foot ulcers Plan continue renally-adjusted IV Daptomycin; wound cx showing MRSA; Corynebacterium is probably a contaminant reviewed MRI of left foot showing osteomyelitis - will need 6 weeks of antibiotics 2D echo does not show vegetations will need weekly ESR, CRP, CBC, CMP, CPK levels while on antibiotics will continue to follow clinically while the patient is in the hospital discussed with Dr. Lazar
--- NOTE | 2016-11-06 10:41 | CP.PCM.PN ---
<Brennan Cantu - Last Filed: 11/06/16 10:31> Subjective - Date & Time of Evaluation Date of Evaluation: 11/06/16 Time of Evaluation: 10:31 - Subjective Subjective: Podiatry Progress Note - Dr. Lazar 36 year old female patient seen at bedside POD#6 left foot I&D (DOS: 10/31/16). Patient is accompanied by mother at bedside. Patient seen wearing heel offloading shoe on right foot in bed. Patient and patient's mother state she was not given multipodus boots yesterday or today. Per nursing however, patient was given multipodus boots yesterday and refused; only allowed heel wedge shoe to be put on her right foot. Patient is aware she needs to wear multipodus boots to prevent progression of pressure ulcer to right heel. Patient denies any pain to her left foot today. Patient denies any changes to WoundVAC. Patient believes she is starting to feel sensation to her left heel. Patient denies N/V/F/D/C/SOB/calf pain. No other pedal complaints at this time. Objective - Vital Signs/Intake and Output Vital Signs (last 24 hours): Temp Pulse Resp BP Pulse Ox 99.1 F 100 H 20 136/90 96 11/06/16 06:00 11/06/16 09:03 11/06/16 06:00 11/06/16 09:03 11/06/16 06:00 Intake and Output: 11/06/16 11/06/16 06:59 18:59 Intake Total 260 Output Total 350 Balance -90 - Medications Medications: Current Medications Acetaminophen (Tylenol 325mg Tab) 650 mg PO Q6H PRN PRN Reason: Pain, moderate (4-7) Last Admin: 11/01/16 17:49 Dose: 650 mg Artificial Tears (Artificial Tears) 0.2 ml OU DAILY PRN PRN Reason: Dry skin Last Admin: 11/03/16 17:53 Dose: 2 drop Ascorbic Acid (Vitamin C 500 Mg Tab) 500 mg PO BID [facility] Last Admin: 11/06/16 09:02 Dose: 500 mg Carvedilol (Coreg) 6.25 mg PO BID [facility] Last Admin: 11/06/16 09:03 Dose: 6.25 mg Ferrous Sulfate (Feosol Liq) 300 mg PO TID [facility] Last Admin: 11/06/16 09:02 Dose: 300 mg Daptomycin 370 mg/ Sodium (Chloride) 100 mls @ 200 mls/hr IV QOTHERDAY [facility] Stop: 11/10/16 10:01 Last Admin: 11/05/16 10:52 Dose: 200 mls/hr Sodium Chloride (Sodium Chloride 0.45%) 1,000 mls @ 100 mls/hr IV .Q10H [facility] Insulin Detemir (Levemir) 7 unit SC BID [facility] Last Admin: 11/06/16 09:01 Dose: 7 unit Insulin Human Lispro (Humalog Med) 0 units SC ACHS [facility] PRN Reason: Protocol Last Admin: 11/06/16 08:19 Dose: 1 units Metoclopramide HCl (Reglan) 5 mg IVP ACHS [facility] Last Admin: 11/06/16 08:17 Dose: Not Given Multi-Ingredient Cream (Hydrocerin Cream) 0 ea TOP BID [facility] Last Admin: 11/05/16 18:02 Dose: 1 unit Multivitamins/Minerals (Therapeutic-M Tab) 1 tab PO 0800 [facility] Last Admin: 11/06/16 09:04 Dose: 1 tab Oxychlorosene Sodium (Clorpactin Wcs-90) 2 gm TOP DAILY [facility] Last Admin: 11/06/16 09:04 Dose: Not Given Pantoprazole Sodium (Protonix Ec Tab) 40 mg PO 0600,1600 [facility] Last Admin: 11/06/16 05:28 Dose: 40 mg Pregabalin (Lyrica) 100 mg PO TID [facility] Last Admin: 11/06/16 09:02 Dose: 100 mg Sodium Bicarbonate (Sodium Bicarbonate Tab) 1,300 mg PO TID [facility] Last Admin: 11/06/16 09:02 Dose: 1,300 mg Zinc Sulfate (Zinc Sulfate 220 Mg Cap) 220 mg PO DAILY [facility] Last Admin: 11/06/16 09:02 Dose: 220 mg - Labs Labs: 11/06/16 05:30 11/06/16 05:30 PT 13.3 Seconds (9.9-11.8) H 10/26/16 20:30 INR 1.23 (0.93-1.08) H 10/26/16 20:30 APTT 28.7 Seconds (23.7-30.8) 11/06/16 05:30 - Constitutional Appears: Well, Non-toxic, No Acute Distress - Extremities Exam Additional comments: WoundVAC to left foot appears clean/dry/intact with no leakage noted. Approximately 50 mL seen in canister (yesterday ~25 mL). Patient not wearing multipodus boots b/l. VASC: DP and PT pulses palpable 2/4 b/l. TG WNL b/l. Edema noted to left foot. NEURO: Gross sensation absent bilaterally. DERM: LLE = Ulceration #1 noted to left medial heel measuring approximately 3 x 3 cm with a fibrous base and no current drainage noted. Ulceration #2 located distal to ulcer #1 measuring approximately 0.6 x 0.5 cm with a fibrous base and no drainage noted; no active bleeding noted. It is noted that a linear incision was made during sx opening the communication between ulcers #1 and #2. Ulceration noted to the posterior aspect of left heel with fibrous base, also contiguous with ulcers #1 and #2. All ulcerations +probe to bone, -malodor, - ascending erythema, +purulence at this visit. RLE = Nonblanchable patch of erythema noted to plantarposterior calcaneus. ORTHO: No pain on palpation noted to foot b/l. - Neurological Exam Neurological Exam: Alert, Awake, Oriented x3 - Psychiatric Exam Psychiatric exam: Normal Affect, Normal Mood Assessment and Plan - Assessment and Plan (Free Text) Assessment: 36 year old female 36 year old female PMHx IDDM, renal failure, sepsis, metabolic acidosis, UTI, CKD, anemia 1) POD#6 left foot incision and drainage with wound debridement; 2) Stage 1 pressure ulcer right heel Plan: Patient seen and evaluated at bedside with attending, Dr. Lazar Chart, vitals, labs reviewed - afebrile, leukocytosis 15.3 (increasing, yesteday 11/05 @ 14.7), glucose 131 WoundVAC changed today. Canister found to have approximately 50 cc drainage. Change Friday, 11/08 Santyl ordered, apply to left heel ulcerations x3 with each VAC change. Per ID, continue renally-adjusted IV Daptomycin; patient will need 6 weeks of abx Heel offloading shoe is to be worn on left foot only when weightbearing. Discussed with patient and nursing offloading boots should be on at all times while in bed. Patient to wear multipodus boots at all times while in bed to prevent progression of pressure ulcer formation R heel. - Patient extremely noncompliant despite informing patient right heel developing pressure ulcer. Continue Eucerin cream bilateral LE BID Prognosis for limb salvage poor Podiatry will continue to follow patient while in house <Rina Lazar - Last Filed: 11/12/16 14:29> Objective - Vital Signs/Intake and Output Vital Signs (last 24 hours): Temp Pulse Resp BP Pulse Ox 100 F H 109 H 20 111/67 96 11/12/16 06:00 11/12/16 10:26 11/12/16 06:00 11/12/16 10:26 11/12/16 06:00 Intake and Output: 11/12/16 11/12/16 06:59 18:59 Intake Total 1020 840 Output Total 250 100 Balance 770 740 - Medications Medications: Current Medications Artificial Tears (Artificial Tears) 0.2 ml OU DAILY PRN PRN Reason: Dry skin Last Admin: 11/07/16 10:25 Dose: 2 drop Ascorbic Acid (Vitamin C 500 Mg Tab) 500 mg PO BID [facility] Last Admin: 11/12/16 10:26 Dose: 500 mg Carvedilol (Coreg) 6.25 mg PO BID [facility] Last Admin: 11/12/16 10:26 Dose: 6.25 mg Collagenase (Santyl) 0 gm TOP DAILY [facility] Last Admin: 11/11/16 10:35 Dose: Not Given Ferrous Sulfate (Feosol Liq) 300 mg PO TID [facility] Last Admin: 11/12/16 10:26 Dose: 300 mg Furosemide (Lasix) 40 mg IVP DAILY [facility] Last Admin: 11/12/16 10:26 Dose: 40 mg Meropenem 250 mg/ Sodium (Chloride) 100 mls @ 100 mls/hr IVPB Q12H [facility] PRN Reason: Protocol Stop: 11/19/16 09:31 Last Admin: 11/12/16 10:28 Dose: 100 mls/hr Daptomycin 420 mg/ Sodium (Chloride) 100 mls @ 200 mls/hr IV QOTHERDAY [facility] Stop: 11/16/16 11:16 Last Admin: 11/11/16 17:52 Dose: 200 mls/hr Insulin Detemir (Levemir) 7 unit SC BID [facility] Last Admin: 11/12/16 10:27 Dose: 7 unit Insulin Human Lispro (Humalog Med) 0 units SC [facility] PRN Reason: Protocol Last Admin: 11/12/16 08:41 Dose: 5 units Metoclopramide HCl (Reglan) 5 mg IVP ACHS [facility] Last Admin: 11/12/16 08:50 Dose: Not Given Multi-Ingredient Cream (Hydrocerin Cream) 0 ea TOP BID [facility] Last Admin: 11/11/16 17:29 Dose: 1 unit Multivitamins/Minerals (Therapeutic-M Tab) 1 tab PO 0800 [facility] Last Admin: 11/12/16 10:25 Dose: 1 tab Oxychlorosene Sodium (Clorpactin Wcs-90) 2 gm TOP DAILY [facility] Last Admin: 11/10/16 11:07 Dose: Not Given Pantoprazole Sodium (Protonix Ec Tab) 40 mg PO 0600,1600 [facility] Last Admin: 11/12/16 05:54 Dose: 40 mg Pregabalin (Lyrica) 100 mg PO TID [facility] Last Admin: 11/12/16 10:26 Dose: 100 mg Sodium Bicarbonate (Sodium Bicarbonate Tab) 2,600 mg PO QID [facility] Last Admin: 11/12/16 10:26 Dose: 2,600 mg Zinc Sulfate (Zinc Sulfate 220 Mg Cap) 220 mg PO DAILY [facility] Last Admin: 11/12/16 10:25 Dose: 220 mg - Labs Labs: 11/12/16 06:30 11/12/16 06:30 PT 13.2 Seconds (9.9-11.8) H 11/11/16 05:40 INR 1.22 (0.93-1.08) H 11/11/16 05:40 APTT 32.0 Seconds (23.7-30.8) H 11/11/16 05:40 Attending/Attestation - Attestation I have personally seen and examined this patient.: Yes I have fully participated in the care of the patient.: Yes I have reviewed all pertinent clinical information, including history, physical exam and plan: Yes
[2016-11-06] MEDS: Hydrocerin(120 gm) TOP SCH ×2 (10:50→17:48)
[2016-11-06] MEDS: Sodium Chloride 0.45% 1,000 ML IV SCH ×2 (10:51→21:29)
--- NOTE | 2016-11-06 15:12 | PN ---
DATE: SUBJECTIVE: The patient denies any shortness of breath or sharp left-sided chest pain. PHYSICAL EXAMINATION VITAL SIGNS: Blood pressure /90, heart rate 100, temperature 99.1, and respirations 20. HEENT: Pale conjunctivae. CHEST: Clear. HEART: S1 and S2 are regular. EXTREMITIES: No edema. Dressing is applied to the left foot. LABORATORY DATA: Hemoglobin and hematocrit 7.4 and 23.2, white count is 15.4, and platelet count 394,000. Chemistry, sodium 149, platelet 4.2, chloride 119, CO2 of 15, glucose 131, BUN 50 and creatinine 5.7. ASSESSMENT: 1. Cardiomyopathy. 2. Worsening renal insufficiency. 3. Hypernatremia. 4. Status post incision and drainage of the left foot. RECOMMENDATIONS: Continue Colace 6.25 mg twice a day and Feosol 600 mg t.i.d. The patient is not a suitable candidate for either MIHIR inhibitors or Aldactone unless hemodialysis is considered as a long-term option. Semaj Ryan MD
[2016-11-06 16:11] LABS: PH,URINE 6.5 (4.7-8.0); URINE BILIRUBIN NEGATIVE (NEGATIVE); URINE BLOOD MODERATE (NEGATIVE); URINE GLUCOSE (UA) NEGATIVE (NEGATIVE); URINE KETONE NEGATIVE (NEGATIVE); URINE LEUKOCYTE ESTERASE LARGE Leu/uL (NEGATIVE); URINE PROTEIN 100 mg/dL (<30 mg/dL); URINE UROBILINOGEN 0.2 E.U./dL (<1 E.U./dL)
[2016-11-06 16:27] LABS: URINE APPEARANCE CLOUDY (CLEAR); URINE COLOR YELLOW (YELLOW)
[2016-11-06 16:31] LABS: URINE BACTERIA MANY (NEG); URINE WBC TNTC /hpf (0-6)
--- NOTE | 2016-11-06 23:05 | CP.PCM.PCO ---
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 Juan. Bone marrow aspiration, biopsy was also done at hisoffice, as per patient it was normal. she was told she needs IV iron. Communicated to Dr. Parker.
--- NOTE | 2016-11-07 03:29 | CP.PCM.PN ---
Subjective - Date & Time of Evaluation Date of Evaluation: 11/06/16 Time of Evaluation: 12:00 - Subjective Subjective: Patient denies any difficulty breathing; tolerating diet well, no nausea/ vomiting; Objective - Vital Signs/Intake and Output Vital Signs (last 24 hours): Temp Pulse Resp BP Pulse Ox 99.3 F 105 H 20 128/90 96 11/06/16 19:22 11/06/16 17:50 11/06/16 17:50 11/06/16 19:22 11/06/16 06:00 Intake and Output: 11/06/16 11/07/16 18:59 06:59 Intake Total 660 Output Total 350 Balance 310 - Medications Medications: Current Medications Acetaminophen (Tylenol 325mg Tab) 650 mg PO Q6H PRN PRN Reason: Pain, moderate (4-7) Last Admin: 11/01/16 17:49 Dose: 650 mg Artificial Tears (Artificial Tears) 0.2 ml OU DAILY PRN PRN Reason: Dry skin Last Admin: 11/03/16 17:53 Dose: 2 drop Ascorbic Acid (Vitamin C 500 Mg Tab) 500 mg PO BID [facility] Last Admin: 11/06/16 17:47 Dose: 500 mg Carvedilol (Coreg) 6.25 mg PO BID [facility] Last Admin: 11/06/16 17:47 Dose: 6.25 mg Collagenase (Santyl) 0 gm TOP DAILY [facility] Ferrous Sulfate (Feosol Liq) 300 mg PO TID [facility] Last Admin: 11/06/16 17:46 Dose: 300 mg Daptomycin 370 mg/ Sodium (Chloride) 100 mls @ 200 mls/hr IV QOTHERDAY [facility] Stop: 11/10/16 10:01 Last Admin: 11/05/16 10:52 Dose: 200 mls/hr Sodium Chloride (Sodium Chloride 0.45%) 1,000 mls @ 100 mls/hr IV .Q10H [facility] Last Admin: 11/06/16 21:29 Dose: 100 mls/hr Insulin Detemir (Levemir) 7 unit SC BID [facility] Last Admin: 11/06/16 18:34 Dose: Not Given Insulin Human Lispro (Humalog Med) 0 units SC [facility] PRN Reason: Protocol Last Admin: 11/06/16 21:30 Dose: Not Given Metoclopramide HCl (Reglan) 5 mg IVP [facility] Last Admin: 11/06/16 21:29 Dose: Not Given Multi-Ingredient Cream (Hydrocerin Cream) 0 ea TOP BID [facility] Last Admin: 11/06/16 17:48 Dose: 1 unit Multivitamins/Minerals (Therapeutic-M Tab) 1 tab PO 0800 [facility] Last Admin: 11/06/16 09:04 Dose: 1 tab Oxychlorosene Sodium (Clorpactin Wcs-90) 2 gm TOP DAILY [facility] Last Admin: 11/06/16 09:04 Dose: Not Given Pantoprazole Sodium (Protonix Ec Tab) 40 mg PO 0600,1600 [facility] Last Admin: 11/06/16 18:35 Dose: 40 mg Pregabalin (Lyrica) 100 mg PO TID [facility] Last Admin: 11/06/16 17:47 Dose: 100 mg Sodium Bicarbonate (Sodium Bicarbonate Tab) 1,950 mg PO TID [facility] Zinc Sulfate (Zinc Sulfate 220 Mg Cap) 220 mg PO DAILY [facility] Last Admin: 11/06/16 09:02 Dose: 220 mg - Labs Labs: 11/06/16 05:30 11/06/16 05:30 PT 13.3 Seconds (9.9-11.8) H 10/26/16 20:30 INR 1.23 (0.93-1.08) H 10/26/16 20:30 APTT 28.7 Seconds (23.7-30.8) 11/06/16 05:30 - Constitutional Appears: Non-toxic, No Acute Distress - Eye Exam Eye Exam: Normal appearance - ENT Exam ENT Exam: Mucous Membranes Moist - Respiratory Exam Respiratory Exam: Clear to Ausculation Bilateral, NORMAL BREATHING PATTERN - Cardiovascular Exam Cardiovascular Exam: RRR, +S1, +S2 - GI/Abdominal Exam GI & Abdominal Exam: Soft. absent: Distended, Tenderness - Extremities Exam Additional comments: no leg edema; - Neurological Exam Neurological Exam: Alert, Awake - Psychiatric Exam Psychiatric exam: Normal Affect, Normal Mood - Skin Skin Exam: Normal Color, Warm. absent: Cyanosis Assessment and Plan (1) Acute renal failure Assessment & Plan: Etiology is not completely clear; direct urine microscopy today showing significant number of coarse granular casts which is consistent with ATN; however, more improantly are packed sheets of WBC's with bacteria as well which is concerning for on-going pyelonephritis despite being clinically stable and on abx; Per patient's PMD, patient had serum creat ~1.2 back in July of this year but renal function deteriorated in September; patient also was [place] [facility] [place] that time and was told about impending need for HD; Patient would benefit from renal biopsy and is agreeable to it; however, any ongoing pyelo should be treated first; Last HD session 4 days ago, serum creat continues to rise daily; significant metabolic acidosis but otherwise stable volume and K status; waiting to see at what level creat stabilizes; -starting 1/2NS at 100 cc/hr -increase sodium bicarb 650 mg to 3 tabs tid -repeating urine culture -obtaining urine cytology Status: Acute (2) CKD (chronic kidney disease) Assessment & Plan: Imaging indicative of some degree of chronicity but etiology is again unclear and records now showing relatively preserved GFR as recent as ~3 months ago; degree of proteinuria is being affected by markedly low GFR currently and so unable to properly assess; -obtain [facility] [place] from last 3 months; Status: Chronic (3) Anemia Assessment & Plan: Had bone biopsy last year; will obtain record especially with abnormal SPEP; Status: Acute (4) Metabolic acidosis Status: Acute (5) Sepsis Assessment & Plan: On dapto but still with shivani pyuria, awaiting urine culture repeat; Status: Acute
[2016-11-07] MEDS: Pantoprazole 40 mg EC Tab PO SCH ×2 (06:17→18:28)
[2016-11-07 07:12] LABS: BASO # 0.03 K/mm3 (0.0-2.0); BASO % 0.2 % (0.0-3.0); EOS # 0.2 (0.0-0.7); EOS % 1.2 % (1.5-5.0); GRAN # 13.03 (1.4-6.5); GRAN % 81.3 % (50.0-68.0); LYMPH # 1.8 (1.2-3.4); LYMPH % 10.9 % (22.0-35.0); MEAN CELL VOLUME 89.1 fl (80.0-105.0); MEAN CORPUSCULAR HEMOGLOBIN 27.9 pg (25.0-35.0); MEAN CORPUSCULAR HGB CONC 31.4 g/dl (31.0-37.0); MEAN PLATELET VOLUME 8.6 fl (7.0-11.0); MONO % 6.4 % (1.0-6.0); PLATELET COUNT 419 10^3/uL (120.0-450.0); RED CELL DISTRIBUTION WIDTH 16.6 % (11.5-14.5)
[2016-11-07 07:33] LABS: ALB/GLOB RATIO 0.6 (1.1-1.8); BILIRUBIN,TOTAL 0.3 mg/dL (0.2-1.3); CALCIUM 7.8 mg/dL (8.4-10.5); POTASSIUM 4.6 mmol/L (3.6-5.0); TOTAL PROTEIN 7.5 g/dL (5.8-8.3)
[2016-11-07 07:45] LABS: HEMATOCRIT 23.6 % (36.0-48.0)
[2016-11-07] MEDS: Sodium Chloride 0.45% 1,000 ML IV SCH (08:21)
[2016-11-07] MEDS: Multivitamin With Minerals Tab PO SCH (08:22)
[2016-11-07] MEDS: Insulin Lispro (humaLOG) MEDIUM Coverage SC SCH ×4 (08:22→22:10)
--- NOTE | 2016-11-07 09:52 | PN ---
DATE: 11/07/2016 SUBJECTIVE: This is a 36-year-old diabetic female seen for ulceration with calcaneal osteomyelitis of the right heel. The patient is seen at bedside. She is alert and oriented. She is wearing the Multi Podus Boots as instructed. She has a wound VAC on her wound. The wound VAC is working perfectly. There are no leaks detected and there is no maceration of the skin. PHYSICAL EXAMINATION: VITAL SIGNS: The patient's vital signs were noted, her temperature today is 98.6, pulse rate is 104, blood pressure is 110/67, respirations are 19, and oxygen saturations is 95%. LABORATORY DATA: The patient's labs are reviewed. Her white blood cell count today is 16. Her red blood cells are 265. Her hemoglobin is 7.4, hematocrit is 23.6. Her granulocyte is 81.3. Her lymphocytes are 10.9 with a shift to the left. The patient's coagulation values were noted, INR is 1.23. Chemistries were noted, her BUN and creatinine 54 and 5.9. Her glucose today was 289. Her alkaline phosphatase is 343. Microbiology shows a yeast in the urine and MRSA of the left foot. 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 PLAN OF CARE: We will continue with the wound VAC. We did order Santyl. The Santyl will be placed in the wound to help debride some of the fibrotic tissue. The wound VAC will be placed on Friday, Friday, and Friday. She will continue IV antibiotics as per infectious disease. At this point, no further debridements are considered for the heel and she will be seen in followup. The wound VAC will be changed tomorrow. Rina Lazar DPM [facility]
[2016-11-07] MEDS: Ferrous Sulfate 300 mg/5 mL Liq UD PO SCH ×3 (10:05→18:27)
[2016-11-07] MEDS: Oxychlorosene Topical 2 gm Packet TOP SCH (10:05)
[2016-11-07] MEDS: Insulin Detemir 100 units/ml Vial (Levemir) SC SCH ×2 (10:06→17:12)
[2016-11-07] MEDS: Aritificial Tears (15ml) OU PRN (10:25)
[2016-11-07] MEDS: Hydrocerin(120 gm) TOP SCH (10:26)
--- NOTE | 2016-11-07 10:40 | CP.PCM.PN ---
<Ata Ackerman - Last Filed: 11/07/16 12:27> Subjective - Date & Time of Evaluation Date of Evaluation: 11/07/16 Time of Evaluation: 07:15 - Subjective Subjective: Subjective: Patient seen and examined at bedside. No acute overnight events. Patient resting comfortably in bed. States that she does not want HD because she is feeling fine. Extensive conversation explaining the importance of hemodialysis was conducted. Offers no new complaints at this time. Denies f/c/p/sob/ abdominal pain/n/v/diarrhea/constipation/urinary symptoms. Physical Exam: - Constitutional Appears: NAD - Head Exam Head Exam: ATRAUMATIC, NORMAL INSPECTION, NORMOCEPHALIC - Eye Exam Eye Exam: EOMI, Normal appearance, PERRL Pupil Exam: NORMAL ACCOMODATION, PERRL - ENT Exam ENT Exam: Mucous Membranes Moist, Normal Exam - Neck Exam Neck exam: Positive for: Normal Inspection - Respiratory Exam Respiratory Exam: Clear to Auscultation Bilateral, NORMAL BREATHING PATTERN - Cardiovascular Exam Cardiovascular Exam: REGULAR RHYTHM, +S1, +S2 - GI/Abdominal Exam GI & Abdominal Exam: Normal Bowel Sounds, Soft. absent: Tenderness - Extremities Exam Extremities exam: left foot bandaged - Back Exam Back exam: CVA tenderness (L), CVA tenderness (R) - Neurological Exam Neurological exam: Alert, Oriented x3 - Psychiatric Exam Psychiatric exam: Normal Affect, Normal Mood Assessment: 36yo F PMH DM, HTN, HLD, RLE dvt and LLE ulcer who presents w/ Septic shock 2/2 pyelonephritis 2/2 untreated UTI. EMMETT still present, improving on dialysis. Metabolic acidosis resolved. Also found to be anemic, likely due to chronic disease (diabetes). Found to have UTI and LLE ulcer growing MRSA. MRI shows osteomyelitis of L calcaneus and diffuse plantar proximal aspect of L foot. s/p Merrem x6d. POD 2 s/p debridement. Patient given 1 unit of PRBCs Plan: Septic Shock - shock has resolved, BP stable - likely 2/2 osteomyelitis vs pyelo vs untreated UTI (urine noted in sorenson container) - pt clinically improving, shock has resolved off pressors - Sepsis criteria still met - Daptomycin - ID consulted, recs appreciated - L foot wound cx growing MRSA and corynebacterium - Ucx growing MRSA - tachycardia resolved- HR in the 90s - leukocytosis still present, but improving LLE ulcer - s/p I&D - wound care per podiatry - L Foot cx growing MRSA and corynbacterium - MRI L foot showed osteomyelitis of L calcaneus and diffuse plantar proximal aspect of L foot. - f/u sensitivities - podiatry consulted, recs appreciated EMMETT on CKD vs worsening CKD - Cr currently 5.9 from 5.0 yesterday, Dr. Prestno recs- patient does not want tunneled dialysis access, patient's creatinine needs to be monitored for additional days- records received from PMD, established baseline creatinine was 1.2, mid line needs to removed to save vasculature for HD in future if patient consents, urine culture and urine cytology are pending due to urine WBC being elevated, patient started on IV sodium bicarbonate and sodium bicarbonate tabs - Nephrology consulted, recs appreciated concerning long-term dialysis - NAGMA noted- likely 2/2 diarrhea vs RTA IV - RIJ in place Anemia likely 2/2 chronic dz - s/p 5u pRBC transfused - Hgb to 7.4 from 7.4 noted - likely due to chronic kidney 2/2 uncontrolled DM2 - feosol - Dr. Weaver consulted- appreciate recs- note reviewed, patient does not want her care at this time as patient has Dr. Granados outpatient, as per note the patient claims she already completed a bone marrow biopsy and was recommended to take iron - kappa/lambda are elevated Hx DM -glucose levels noted- BG 289- continue with levemir 7 BID - ISS med Peripheral Neuropathy - likely 2/2 to DM - Lyrica 100 TID Cardiomyopathy - ECHO shows EF of 35% - Cardioogy consulted, Dr. Ryan - Coreg 6.25 BID PPX - protonix - no scds due to foot infection, no lovenox due to renal function, no heparin due to decreasing H/H Disposition: - patient moved to remote tele - possible d/c friday pending nephro recs Patient seen, examined, case discussed with, and plan approved by attending physician, Dr Parker. Objective - Vital Signs/Intake and Output Vital Signs (last 24 hours): Temp Pulse Resp BP Pulse Ox 98.6 F 107 H 19 136/92 H 95 11/07/16 05:59 11/07/16 10:04 11/07/16 05:59 11/07/16 10:04 11/07/16 05:59 Intake and Output: 11/07/16 11/07/16 06:59 18:59 Intake Total 2600 Output Total 3 Balance 2597 - Medications Medications: Current Medications Acetaminophen (Tylenol 325mg Tab) 650 mg PO Q6H PRN PRN Reason: Pain, moderate (4-7) Last Admin: 11/01/16 17:49 Dose: 650 mg Artificial Tears (Artificial Tears) 0.2 ml OU DAILY PRN PRN Reason: Dry skin Last Admin: 11/07/16 10:25 Dose: 2 drop Ascorbic Acid (Vitamin C 500 Mg Tab) 500 mg PO BID [facility] Last Admin: 11/06/16 17:47 Dose: 500 mg Carvedilol (Coreg) 6.25 mg PO BID [facility] Last Admin: 11/07/16 10:04 Dose: 6.25 mg Collagenase (Santyl) 0 gm TOP DAILY [facility] Ferrous Sulfate (Feosol Liq) 300 mg PO TID [facility] Last Admin: 11/07/16 10:05 Dose: 300 mg Daptomycin 370 mg/ Sodium (Chloride) 100 mls @ 200 mls/hr IV QOTHERDAY [facility] Stop: 11/10/16 10:01 Last Admin: 11/05/16 10:52 Dose: 200 mls/hr Sodium Bicarbonate 50 meq/ (Sodium Chloride) 1,050 mls @ 100 mls/hr IV .[id number] [facility] Insulin Detemir (Levemir) 7 unit SC BID [facility] Last Admin: 11/07/16 10:06 Dose: 7 unit Insulin Human Lispro (Humalog Med) 0 units SC [facility] PRN Reason: Protocol Last Admin: 11/07/16 08:22 Dose: 7 units Metoclopramide HCl (Reglan) 5 mg IVP ACHS [facility] Last Admin: 11/07/16 08:21 Dose: Not Given Multi-Ingredient Cream (Hydrocerin Cream) 0 ea TOP BID [facility] Last Admin: 11/07/16 10:26 Dose: 1 unit Multivitamins/Minerals (Therapeutic-M Tab) 1 tab PO 0800 [facility] Last Admin: 11/07/16 08:22 Dose: 1 tab Oxychlorosene Sodium (Clorpactin Wcs-90) 2 gm TOP DAILY [facility] Last Admin: 11/07/16 10:05 Dose: 2 gm Pantoprazole Sodium (Protonix Ec Tab) 40 mg PO 0600,1600 [facility] Last Admin: 11/07/16 06:17 Dose: 40 mg Pregabalin (Lyrica) 100 mg PO TID [facility] Last Admin: 11/07/16 10:04 Dose: 100 mg Sodium Bicarbonate (Sodium Bicarbonate Tab) 2,600 mg PO TID [facility] Zinc Sulfate (Zinc Sulfate 220 Mg Cap) 220 mg PO DAILY [facility] Last Admin: 11/06/16 09:02 Dose: 220 mg - Labs Labs: 11/07/16 06:50 11/07/16 06:50 PT 13.3 Seconds (9.9-11.8) H 10/26/16 20:30 INR 1.23 (0.93-1.08) H 10/26/16 20:30 APTT 28.7 Seconds (23.7-30.8) 11/06/16 05:30 <Agustin Parker - Last Filed: 11/10/16 17:16> Objective - Vital Signs/Intake and Output Vital Signs (last 24 hours): Temp Pulse Resp BP Pulse Ox 99.1 F 106 H 20 136/84 96 11/10/16 12:00 11/10/16 12:00 11/10/16 12:00 11/10/16 12:00 11/10/16 12:00 Intake and Output: 11/10/16 11/10/16 06:59 18:59 Intake Total 940 Output Total 350 Balance 590 - Medications Medications: Current Medications Acetaminophen (Tylenol 325mg Tab) 650 mg PO Q6H PRN PRN Reason: Pain, moderate (4-7) Last Admin: 11/10/16 08:00 Dose: 650 mg Artificial Tears (Artificial Tears) 0.2 ml OU DAILY PRN PRN Reason: Dry skin Last Admin: 11/07/16 10:25 Dose: 2 drop Ascorbic Acid (Vitamin C 500 Mg Tab) 500 mg PO BID [facility] Last Admin: 11/10/16 10:17 Dose: 500 mg Carvedilol (Coreg) 6.25 mg PO BID [facility] Last Admin: 11/10/16 10:17 Dose: 6.25 mg Collagenase (Santyl) 0 gm TOP DAILY [facility] Last Admin: 11/10/16 10:25 Dose: Not Given Ferrous Sulfate (Feosol Liq) 300 mg PO TID [facility] Last Admin: 11/10/16 13:50 Dose: 300 mg Furosemide (Lasix) 40 mg IVP DAILY [facility] Last Admin: 11/10/16 10:18 Dose: 40 mg Meropenem 250 mg/ Sodium (Chloride) 100 mls @ 100 mls/hr IVPB Q12H [facility] PRN Reason: Protocol Stop: 11/19/16 09:31 Last Admin: 11/10/16 10:19 Dose: 100 mls/hr Insulin Detemir (Levemir) 7 unit SC BID [facility] Last Admin: 11/10/16 10:00 Dose: 7 unit Insulin Human Lispro (Humalog Med) 0 units SC [facility] PRN Reason: Protocol Last Admin: 11/10/16 16:24 Dose: Not Given Metoclopramide HCl (Reglan) 5 mg IVP [facility] Last Admin: 11/10/16 16:30 Dose: Not Given Multi-Ingredient Cream (Hydrocerin Cream) 0 ea TOP BID [facility] Last Admin: 11/10/16 13:47 Dose: 1 unit Multivitamins/Minerals (Therapeutic-M Tab) 1 tab PO 0800 [facility] Last Admin: 11/10/16 08:00 Dose: 1 tab Oxychlorosene Sodium (Clorpactin Wcs-90) 2 gm TOP DAILY [facility] Last Admin: 11/10/16 11:07 Dose: Not Given Pantoprazole Sodium (Protonix Ec Tab) 40 mg PO 0600,1600 [facility] Last Admin: 11/10/16 16:29 Dose: 40 mg Pregabalin (Lyrica) 100 mg PO TID [facility] Last Admin: 11/10/16 13:50 Dose: 100 mg Sodium Bicarbonate (Sodium Bicarbonate Tab) 2,600 mg PO QID [facility] Last Admin: 11/10/16 13:50 Dose: 2,600 mg Zinc Sulfate (Zinc Sulfate 220 Mg Cap) 220 mg PO DAILY [facility] Last Admin: 11/10/16 10:17 Dose: 220 mg - Labs Labs: 11/10/16 07:30 11/10/16 07:30 PT 13.3 Seconds (9.9-11.8) H 10/26/16 20:30 INR 1.23 (0.93-1.08) H 10/26/16 20:30 APTT 28.7 Seconds (23.7-30.8) 11/06/16 05:30 Attending/Attestation - Attestation I have personally seen and examined this patient.: Yes I have fully participated in the care of the patient.: Yes I have reviewed all pertinent clinical information, including history, physical exam and plan: Yes Notes (Text): I have seen and examined the patient with the resident. Agree with the above note with the following addition/ exception: Briefly this is 36 year old female with history of IDDM, HTN, dyslipidemia, RLE DVT, wheel chair bound, 2 amputated toes of left leg and chronic LE ulcer who presented with severe sepsis secondary to acute pyelonephritis, Acute on chronic kidney disease, AGMA , electrolyte abnormalities, anemia and hypotension. Patient is alert, awake and denies any complaints. She still has leukocytosis and anemia. Patient underwent I&D and Left foot wound culture is growing corynebacterium (contaminant) and MRSA. Patient is currently on daptomycin. Intraoperative wound culture is positive for MRSA. Continue supportive boot. PT recommended CLARITA vs HWS. Her blood sugars have improved. She has been non compliant with carb consistent diet. Her anemia is multifactorial s/p 1 unit PRBC . Patient refused to see machine brush maker at this time. Patient claims that she had a BM biopsy and she was told that it was normal. Her creatinine is getting worse. Discussed with transfer pumper. 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 Patient is not oliguric. She was also found to have cardiomyopathy and was started on Coreg. Cardiology evaluation appreciated. Long-term prognosis is poor secondary to multiple medical problems and noncompliance with follow-up. Upon discharge patient will follow up with Dr Bunch. Dr Agustin Parker
[2016-11-07 11:42] LABS: BAND 2 % (0-2); EOSINOPHIL 1 % (0.0-3.0); METAMYELOCYTE 2 %; MYELOCYTE 3 %; NEUTROPHIL 79 % (50.0-70.0)
[2016-11-07 11:43] LABS: ANISOCYTOSIS 1+; HYPOCHROMIA 1+
--- NOTE | 2016-11-07 12:39 | CP.PCM.PN ---
Subjective - Date & Time of Evaluation Date of Evaluation: 11/07/16 Time of Evaluation: 10:00 - Subjective Subjective: Comfortable, no pain in the left foot and leg, no fevers, no diarrhea. Objective - Vital Signs/Intake and Output Vital Signs (last 24 hours): Temp Pulse Resp BP Pulse Ox 98.6 F 104 H 19 110/67 95 11/07/16 05:59 11/07/16 05:59 11/07/16 05:59 11/07/16 05:59 11/07/16 05:59 Intake and Output: 11/06/16 11/07/16 18:59 06:59 Intake Total 660 2600 Output Total 350 3 Balance 310 2597 - Medications Medications: Current Medications Acetaminophen (Tylenol 325mg Tab) 650 mg PO Q6H PRN PRN Reason: Pain, moderate (4-7) Last Admin: 11/01/16 17:49 Dose: 650 mg Artificial Tears (Artificial Tears) 0.2 ml OU DAILY PRN PRN Reason: Dry skin Last Admin: 11/03/16 17:53 Dose: 2 drop Ascorbic Acid (Vitamin C 500 Mg Tab) 500 mg PO BID [facility] Last Admin: 11/06/16 17:47 Dose: 500 mg Carvedilol (Coreg) 6.25 mg PO BID [facility] Last Admin: 11/06/16 17:47 Dose: 6.25 mg Collagenase (Santyl) 0 gm TOP DAILY [facility] Ferrous Sulfate (Feosol Liq) 300 mg PO TID [facility] Last Admin: 11/06/16 17:46 Dose: 300 mg Daptomycin 370 mg/ Sodium (Chloride) 100 mls @ 200 mls/hr IV QOTHERDAY [facility] Stop: 11/10/16 10:01 Last Admin: 11/05/16 10:52 Dose: 200 mls/hr Sodium Chloride (Sodium Chloride 0.45%) 1,000 mls @ 100 mls/hr IV .Q10H [facility] Last Admin: 11/06/16 21:29 Dose: 100 mls/hr Insulin Detemir (Levemir) 7 unit SC BID [facility] Last Admin: 11/06/16 18:34 Dose: Not Given Insulin Human Lispro (Humalog Med) 0 units SC [facility] PRN Reason: Protocol Last Admin: 11/06/16 21:30 Dose: Not Given Metoclopramide HCl (Reglan) 5 mg IVP ACHS [facility] Last Admin: 11/06/16 21:29 Dose: Not Given Multi-Ingredient Cream (Hydrocerin Cream) 0 ea TOP BID [facility] Last Admin: 11/06/16 17:48 Dose: 1 unit Multivitamins/Minerals (Therapeutic-M Tab) 1 tab PO 0800 [facility] Last Admin: 11/06/16 09:04 Dose: 1 tab Oxychlorosene Sodium (Clorpactin Wcs-90) 2 gm TOP DAILY [facility] Last Admin: 11/06/16 09:04 Dose: Not Given Pantoprazole Sodium (Protonix Ec Tab) 40 mg PO 0600,1600 [facility] Last Admin: 11/07/16 06:17 Dose: 40 mg Pregabalin (Lyrica) 100 mg PO TID [facility] Last Admin: 11/06/16 17:47 Dose: 100 mg Sodium Bicarbonate (Sodium Bicarbonate Tab) 1,950 mg PO TID [facility] Zinc Sulfate (Zinc Sulfate 220 Mg Cap) 220 mg PO DAILY [facility] Last Admin: 11/06/16 09:02 Dose: 220 mg - Labs Labs: 11/06/16 05:30 11/06/16 05:30 PT 13.3 Seconds (9.9-11.8) H 10/26/16 20:30 INR 1.23 (0.93-1.08) H 10/26/16 20:30 APTT 28.7 Seconds (23.7-30.8) 11/06/16 05:30 - Constitutional Appears: Non-toxic, No Acute Distress - Head Exam Head Exam: NORMAL INSPECTION - ENT Exam ENT Exam: Mucous Membranes Moist - Neck Exam Neck Exam: absent: Lymphadenopathy, Meningismus Additional comments: right neck area with dialysis catheter in place - Respiratory Exam Respiratory Exam: Decreased Breath Sounds - Cardiovascular Exam Cardiovascular Exam: +S1, +S2 - GI/Abdominal Exam GI & Abdominal Exam: Soft. absent: Tenderness - Extremities Exam Additional comments: left leg with dry dressings and wound vacuum in place Assessment and Plan - Assessment and Plan (Free Text) Plan: Assessment Severe sepsis with acute renal failure due to acute pyelonephritis, now growing MRSA in the urine as well as left foot wound infection/abscess with MRSA, MRI showing osteomyelitis, S/P I and D POD #7 DM with diabetic neuropathy HTN history of right DVT bilateral foot ulcers Plan continue renally-adjusted IV Daptomycin; wound cx showing MRSA; Corynebacterium is probably a contaminant reviewed MRI of left foot showing osteomyelitis - will need 6 weeks of antibiotics 2D echo does not show vegetations will need weekly ESR, CRP, CBC, CMP, CPK levels while on antibiotics; most recent CPK is <20 (2016) will continue to follow clinically while the patient is in the hospital discussed with Dr. Lazar
[2016-11-07 13:04] LABS: COLLECTION TIME 24 Hours
[2016-11-07] MEDS ORDERED: Darbepoetin Alfa 60 mcg/ml Inj SC ONE (20:32)
--- NOTE | 2016-11-07 23:21 | CP.PCM.PN ---
Objective - Vital Signs/Intake and Output Vital Signs (last 24 hours): Temp Pulse Resp BP Pulse Ox 98.4 F 107 H 20 129/85 95 11/07/16 17:55 11/07/16 18:28 11/07/16 17:55 11/07/16 18:28 11/07/16 05:59 Intake and Output: 11/07/16 11/08/16 18:59 06:59 Intake Total 360 Balance 360 - Medications Medications: Current Medications Acetaminophen (Tylenol 325mg Tab) 650 mg PO Q6H PRN PRN Reason: Pain, moderate (4-7) Last Admin: 11/01/16 17:49 Dose: 650 mg Artificial Tears (Artificial Tears) 0.2 ml OU DAILY PRN PRN Reason: Dry skin Last Admin: 11/07/16 10:25 Dose: 2 drop Ascorbic Acid (Vitamin C 500 Mg Tab) 500 mg PO BID [facility] Last Admin: 11/07/16 12:34 Dose: 500 mg Carvedilol (Coreg) 6.25 mg PO BID [facility] Last Admin: 11/07/16 18:28 Dose: 6.25 mg Collagenase (Santyl) 0 gm TOP DAILY [facility] Ferrous Sulfate (Feosol Liq) 300 mg PO TID [facility] Last Admin: 11/07/16 18:27 Dose: 300 mg Daptomycin 370 mg/ Sodium (Chloride) 100 mls @ 200 mls/hr IV QOTHERDAY [facility] Stop: 11/10/16 10:01 Last Admin: 11/07/16 12:24 Dose: 200 mls/hr Sodium Bicarbonate 50 meq/ (Sodium Chloride) 1,050 mls @ 100 mls/hr IV .[id number] [facility] Last Admin: 11/07/16 12:37 Dose: 100 mls/hr Insulin Detemir (Levemir) 7 unit SC BID [facility] Last Admin: 11/07/16 17:12 Dose: Not Given Insulin Human Lispro (Humalog Med) 0 units SC ACHS [facility] PRN Reason: Protocol Last Admin: 11/07/16 22:10 Dose: Not Given Metoclopramide HCl (Reglan) 5 mg IVP ACHS [facility] Last Admin: 11/07/16 22:11 Dose: Not Given Multi-Ingredient Cream (Hydrocerin Cream) 0 ea TOP BID [facility] Last Admin: 11/07/16 10:26 Dose: 1 unit Multivitamins/Minerals (Therapeutic-M Tab) 1 tab PO 0800 [facility] Last Admin: 11/07/16 08:22 Dose: 1 tab Oxychlorosene Sodium (Clorpactin Wcs-90) 2 gm TOP DAILY [facility] Last Admin: 11/07/16 10:05 Dose: 2 gm Pantoprazole Sodium (Protonix Ec Tab) 40 mg PO 0600,1600 [facility] Last Admin: 11/07/16 18:28 Dose: 40 mg Pregabalin (Lyrica) 100 mg PO TID [facility] Last Admin: 11/07/16 18:27 Dose: 100 mg Sodium Bicarbonate (Sodium Bicarbonate Tab) 2,600 mg PO QID [facility] Zinc Sulfate (Zinc Sulfate 220 Mg Cap) 220 mg PO DAILY [facility] Last Admin: 11/07/16 12:34 Dose: 220 mg - Labs Labs: 11/07/16 06:50 11/07/16 06:50 PT 13.3 Seconds (9.9-11.8) H 10/26/16 20:30 INR 1.23 (0.93-1.08) H 10/26/16 20:30 APTT 28.7 Seconds (23.7-30.8) 11/06/16 05:30 Assessment and Plan (1) Acute renal failure Status: Acute (2) CKD (chronic kidney disease) Status: Chronic (3) Anemia Status: Acute (4) Metabolic acidosis Status: Acute (5) Sepsis Status: Acute
[2016-11-08] MEDS: Hydrocerin(120 gm) TOP SCH ×3 (05:00→19:01)
[2016-11-08] MEDS: Pantoprazole 40 mg EC Tab PO SCH ×2 (05:31→17:11)
[2016-11-08 07:39] LABS: BASO # 0.04 K/mm3 (0.0-2.0); BASO % 0.2 % (0.0-3.0); EOS # 0.2 (0.0-0.7); EOS % 1.2 % (1.5-5.0); GRAN # 16.47 (1.4-6.5); GRAN % 86.2 % (50.0-68.0); LYMPH # 1.4 (1.2-3.4); LYMPH % 7.4 % (22.0-35.0); MEAN CELL VOLUME 89.7 fl (80.0-105.0); MEAN CORPUSCULAR HGB CONC 31.2 g/dl (31.0-37.0); MEAN PLATELET VOLUME 8.9 fl (7.0-11.0); WHITE BLOOD COUNT 19.1 10^3/ul (4.5-11.0)
[2016-11-08 07:45] LABS: HEMATOCRIT 23.4 % (36.0-48.0)
[2016-11-08 07:51] LABS: ALB/GLOB RATIO 0.6 (1.1-1.8); BILIRUBIN,TOTAL 0.7 mg/dL (0.2-1.3); CALCIUM 7.9 mg/dL (8.4-10.5); TOTAL PROTEIN 7.5 g/dL (5.8-8.3)
[2016-11-08] MEDS: Collagenase 250 Units/gm Ointment(30 gm) TOP SCH ×2 (08:48→10:35)
--- NOTE | 2016-11-08 08:49 | PN ---
DATE: 11/07/2016 SUBJECTIVE: The patient denies any chest pain. No shortness of breath. PHYSICAL EXAMINATION: VITAL SIGNS: Blood pressure 129/85, heart rate 107, temperature 98.4, respiration 20. HEENT: [place] conjunctiva. CHEST: Clear. HEART: S1 and S2 regular. EXTREMITIES: Shows no edema. LABORATORY DATA: Hemoglobin and hematocrit 7.4 and 23.6, white count 16,000, platelet count 419. Today's BUN and creatinine is 54 and 5.9. Glucose is elevated at 289. ASSESSMENT: 1. Congestive heart failure, which appears to be clinically compensated. 2. Worsening renal insufficiency. 3. Status post incision and drainage of the left foot. 4. Anemia. CONDITIONS: Continue Coreg at 6.5 mg twice a day. No invasive cardiac workup is justified at this time. Semaj Ryan MD
[2016-11-08] MEDS: Insulin Detemir 100 units/ml Vial (Levemir) SC SCH ×2 (10:33→19:01)
[2016-11-08] MEDS: Insulin Lispro (humaLOG) MEDIUM Coverage SC SCH ×4 (10:33→21:35)
[2016-11-08] MEDS: Ferrous Sulfate 300 mg/5 mL Liq UD PO SCH ×3 (10:34→19:01)
[2016-11-08] MEDS: Multivitamin With Minerals Tab PO SCH (10:34)
[2016-11-08] MEDS: Oxychlorosene Topical 2 gm Packet TOP SCH (10:35)
--- NOTE | 2016-11-08 10:52 | CP.PCM.PN ---
Subjective - Date & Time of Evaluation Date of Evaluation: 11/08/16 Time of Evaluation: 10:00 - Subjective Subjective: No pain in the left leg, no fevers, no diarrhea. Objective - Vital Signs/Intake and Output Vital Signs (last 24 hours): Temp Pulse Resp BP Pulse Ox 98.4 F 102 H 20 129/85 95 11/07/16 17:55 11/08/16 06:00 11/07/16 17:55 11/07/16 18:28 11/07/16 05:59 Intake and Output: 11/08/16 11/08/16 06:59 18:59 Intake Total 1960 120 Output Total 200 Balance 1960 -80 - Medications Medications: Current Medications Acetaminophen (Tylenol 325mg Tab) 650 mg PO Q6H PRN PRN Reason: Pain, moderate (4-7) Last Admin: 11/01/16 17:49 Dose: 650 mg Artificial Tears (Artificial Tears) 0.2 ml OU DAILY PRN PRN Reason: Dry skin Last Admin: 11/07/16 10:25 Dose: 2 drop Ascorbic Acid (Vitamin C 500 Mg Tab) 500 mg PO BID [facility] Last Admin: 11/07/16 12:34 Dose: 500 mg Carvedilol (Coreg) 6.25 mg PO BID [facility] Last Admin: 11/07/16 18:28 Dose: 6.25 mg Collagenase (Santyl) 0 gm TOP DAILY [facility] Ferrous Sulfate (Feosol Liq) 300 mg PO TID [facility] Last Admin: 11/07/16 18:27 Dose: 300 mg Daptomycin 370 mg/ Sodium (Chloride) 100 mls @ 200 mls/hr IV QOTHERDAY [facility] Stop: 11/10/16 10:01 Last Admin: 11/07/16 12:24 Dose: 200 mls/hr Sodium Bicarbonate 50 meq/ (Sodium Chloride) 1,050 mls @ 100 mls/hr IV .[id number] [facility] Last Admin: 11/07/16 22:15 Dose: 100 mls/hr Insulin Detemir (Levemir) 7 unit SC BID [facility] Last Admin: 11/07/16 17:12 Dose: Not Given Insulin Human Lispro (Humalog Med) 0 units SC [facility] PRN Reason: Protocol Last Admin: 11/07/16 22:10 Dose: Not Given Metoclopramide HCl (Reglan) 5 mg IVP [facility] Last Admin: 11/07/16 22:11 Dose: Not Given Multi-Ingredient Cream (Hydrocerin Cream) 0 ea TOP BID [facility] Last Admin: 11/08/16 05:00 Dose: 1 unit Multivitamins/Minerals (Therapeutic-M Tab) 1 tab PO 0800 [facility] Last Admin: 11/07/16 08:22 Dose: 1 tab Oxychlorosene Sodium (Clorpactin Wcs-90) 2 gm TOP DAILY [facility] Last Admin: 11/07/16 10:05 Dose: 2 gm Pantoprazole Sodium (Protonix Ec Tab) 40 mg PO 0600,1600 [facility] Last Admin: 11/08/16 05:31 Dose: 40 mg Pregabalin (Lyrica) 100 mg PO TID [facility] Last Admin: 11/07/16 18:27 Dose: 100 mg Sodium Bicarbonate (Sodium Bicarbonate Tab) 2,600 mg PO QID [facility] Last Admin: 11/07/16 22:25 Dose: Not Given Zinc Sulfate (Zinc Sulfate 220 Mg Cap) 220 mg PO DAILY [facility] Last Admin: 11/07/16 12:34 Dose: 220 mg - Labs Labs: 11/08/16 07:00 11/08/16 07:00 PT 13.3 Seconds (9.9-11.8) H 10/26/16 20:30 INR 1.23 (0.93-1.08) H 10/26/16 20:30 APTT 28.7 Seconds (23.7-30.8) 11/06/16 05:30 - Constitutional Appears: Non-toxic, No Acute Distress - Head Exam Head Exam: NORMAL INSPECTION - ENT Exam ENT Exam: Mucous Membranes Moist - Neck Exam Neck Exam: absent: Lymphadenopathy, Meningismus Additional comments: right sided dialysis catheter in place - Respiratory Exam Respiratory Exam: Decreased Breath Sounds - Cardiovascular Exam Cardiovascular Exam: +S1, +S2 - GI/Abdominal Exam GI & Abdominal Exam: Soft. absent: Tenderness Assessment and Plan - Assessment and Plan (Free Text) Plan: Assessment Severe sepsis with acute renal failure due to acute pyelonephritis, now growing MRSA in the urine as well as left foot wound infection/abscess with MRSA, MRI showing osteomyelitis, S/P I and D POD #8 DM with diabetic neuropathy HTN history of right DVT bilateral foot ulcers Plan continue renally-adjusted IV Daptomycin; wound cx showing MRSA; Corynebacterium is probably a contaminant reviewed MRI of left foot showing osteomyelitis - will need 6 weeks of antibiotics 2D echo does not show vegetations will need weekly ESR, CRP, CBC, CMP, CPK levels while on antibiotics; most recent CPK is <20 (2016) will continue to follow clinically while the patient is in the hospital discussed with Dr. Lazar previously
--- NOTE | 2016-11-08 12:43 | CP.PCM.PN ---
<Ata Ackerman - Last Filed: 11/08/16 12:39> Subjective - Date & Time of Evaluation Date of Evaluation: 11/08/16 Time of Evaluation: 11:30 - Subjective Subjective: Subjective: Patient seen and examined at bedside. No acute overnight events. Patient resting comfortably in bed. States that she wants HD today. Offers no new complaints at this time. Denies f/c/p/sob/abdominal pain/n/v/diarrhea/ constipation/urinary symptoms. Physical Exam: - Constitutional Appears: NAD - Head Exam Head Exam: ATRAUMATIC, NORMAL INSPECTION, NORMOCEPHALIC - Eye Exam Eye Exam: EOMI, Normal appearance, PERRL Pupil Exam: NORMAL ACCOMODATION, PERRL - ENT Exam ENT Exam: Mucous Membranes Moist, Normal Exam - Neck Exam Neck exam: Positive for: Normal Inspection - Respiratory Exam Respiratory Exam: Clear to Auscultation Bilateral, NORMAL BREATHING PATTERN - Cardiovascular Exam Cardiovascular Exam: REGULAR RHYTHM, +S1, +S2 - GI/Abdominal Exam GI & Abdominal Exam: Normal Bowel Sounds, Soft. absent: Tenderness - Extremities Exam Extremities exam: left foot bandaged - Back Exam Back exam: CVA tenderness (L), CVA tenderness (R) - Neurological Exam Neurological exam: Alert, Oriented x3 - Psychiatric Exam Psychiatric exam: Normal Affect, Normal Mood Assessment: 36yo F PMH DM, HTN, HLD, RLE dvt and LLE ulcer who presents w/ Septic shock 2/2 pyelonephritis 2/2 untreated UTI. EMMETT still present, improving on dialysis. Metabolic acidosis resolved. Also found to be anemic, likely due to chronic disease (diabetes). Found to have UTI and LLE ulcer growing MRSA. MRI shows osteomyelitis of L calcaneus and diffuse plantar proximal aspect of L foot. s/p Merrem x6d. POD 2 s/p debridement. Patient given 1 unit of PRBCs Plan: Septic Shock - shock has resolved, BP stable - likely 2/2 osteomyelitis vs pyelo vs untreated UTI (urine noted in sorenson container) - pt clinically improving, shock has resolved off pressors - Sepsis criteria still met - Daptomycin - ID consulted, recs appreciated - L foot wound cx growing MRSA and corynebacterium - Ucx growing MRSA - tachycardia resolved- HR in the 90s - leukocytosis still present, but improving LLE ulcer - s/p I&D - wound care per podiatry - L Foot cx growing MRSA and corynbacterium - MRI L foot showed osteomyelitis of L calcaneus and diffuse plantar proximal aspect of L foot. - f/u sensitivities - podiatry consulted, recs appreciated EMMETT on CKD vs worsening CKD - Cr currently 6.0 from 5.9 yesterday, Dr. Preston recs- patient does not want tunneled dialysis access, patient's creatinine needs to be monitored for additional days- records received from PMD, established baseline creatinine was 1.2, mid line needs to removed to save vasculature for HD in future if patient consents, urine culture and urine cytology are pending due to urine WBC being elevated, patient started on IV sodium bicarbonate and sodium bicarbonate tabs. Dialysis today or tomorrow pending clinical course, Renal biopsy for Friday - attaining records from [facility] [place] - Nephrology consulted, recs appreciated concerning long-term dialysis - NAGMA noted- likely 2/2 diarrhea vs RTA IV - RIJ in place Anemia likely 2/2 chronic dz - s/p 5u pRBC transfused - Hgb to 7.3 from 7.4 noted - likely due to chronic kidney 2/2 uncontrolled DM2 - feosol - Dr. Weaver consulted- appreciate recs- note reviewed, patient does not want her care at this time as patient has Dr. Granados outpatient, as per note the patient claims she already completed a bone marrow biopsy and was recommended to take iron - kappa/lambda are elevated Hx DM -glucose levels noted- BG 237- continue with levemir 7 BID - ISS med Peripheral Neuropathy - likely 2/2 to DM - Lyrica 100 TID Cardiomyopathy - ECHO shows EF of 35% - Cardioogy consulted, Dr. Ryan - Coreg 6.25 BID PPX - protonix - no scds due to foot infection, no lovenox due to renal function, no heparin due to decreasing H/H Disposition: - patient moved to remote tele - possible d/c friday pending nephro recs Patient seen, examined, case discussed with, and plan approved by attending physician, Dr Parker. Objective - Vital Signs/Intake and Output Vital Signs (last 24 hours): Temp Pulse Resp BP Pulse Ox 98.4 F 102 H 20 129/85 95 11/07/16 17:55 11/08/16 06:00 11/07/16 17:55 11/07/16 18:28 11/07/16 05:59 Intake and Output: 11/08/16 11/08/16 06:59 18:59 Intake Total 1960 120 Output Total 200 Balance 1960 -80 - Medications Medications: Current Medications Acetaminophen (Tylenol 325mg Tab) 650 mg PO Q6H PRN PRN Reason: Pain, moderate (4-7) Last Admin: 11/01/16 17:49 Dose: 650 mg Artificial Tears (Artificial Tears) 0.2 ml OU DAILY PRN PRN Reason: Dry skin Last Admin: 11/07/16 10:25 Dose: 2 drop Ascorbic Acid (Vitamin C 500 Mg Tab) 500 mg PO BID [facility] Last Admin: 11/08/16 10:34 Dose: 500 mg Carvedilol (Coreg) 6.25 mg PO BID [facility] Last Admin: 11/08/16 10:34 Dose: 6.25 mg Collagenase (Santyl) 0 gm TOP DAILY [facility] Last Admin: 11/08/16 10:35 Dose: 1 applic Ferrous Sulfate (Feosol Liq) 300 mg PO TID [facility] Last Admin: 11/08/16 10:34 Dose: 300 mg Daptomycin 370 mg/ Sodium (Chloride) 100 mls @ 200 mls/hr IV QOTHERDAY [facility] Stop: 11/10/16 10:01 Last Admin: 11/07/16 12:24 Dose: 200 mls/hr Sodium Bicarbonate 50 meq/ (Sodium Chloride) 1,050 mls @ 100 mls/hr IV .[id number] [facility] Last Admin: 11/07/16 22:15 Dose: 100 mls/hr Insulin Detemir (Levemir) 7 unit SC BID [facility] Last Admin: 11/08/16 10:33 Dose: 7 unit Insulin Human Lispro (Humalog Med) 0 units SC ACHS [facility] PRN Reason: Protocol Last Admin: 11/08/16 10:33 Dose: 3 units Metoclopramide HCl (Reglan) 5 mg IVP ACHS [facility] Last Admin: 11/08/16 08:48 Dose: Not Given Multi-Ingredient Cream (Hydrocerin Cream) 0 ea TOP BID [facility] Last Admin: 11/08/16 10:35 Dose: 1 unit Multivitamins/Minerals (Therapeutic-M Tab) 1 tab PO 0800 [facility] Last Admin: 11/08/16 10:34 Dose: 1 tab Oxychlorosene Sodium (Clorpactin Wcs-90) 2 gm TOP DAILY [facility] Last Admin: 11/08/16 10:35 Dose: 2 gm Pantoprazole Sodium (Protonix Ec Tab) 40 mg PO 0600,1600 [facility] Last Admin: 11/08/16 05:31 Dose: 40 mg Pregabalin (Lyrica) 100 mg PO TID [facility] Last Admin: 11/08/16 10:34 Dose: 100 mg Sodium Bicarbonate (Sodium Bicarbonate Tab) 2,600 mg PO QID [facility] Last Admin: 11/08/16 10:34 Dose: 2,600 mg Zinc Sulfate (Zinc Sulfate 220 Mg Cap) 220 mg PO DAILY [facility] Last Admin: 11/08/16 10:34 Dose: 220 mg - Labs Labs: 11/08/16 07:00 11/08/16 07:00 PT 13.3 Seconds (9.9-11.8) H 10/26/16 20:30 INR 1.23 (0.93-1.08) H 10/26/16 20:30 APTT 28.7 Seconds (23.7-30.8) 11/06/16 05:30 <Agustin Parker B - Last Filed: 11/10/16 17:19> Objective - Vital Signs/Intake and Output Vital Signs (last 24 hours): Temp Pulse Resp BP Pulse Ox 99.1 F 106 H 20 136/84 96 11/10/16 12:00 11/10/16 12:00 11/10/16 12:00 11/10/16 12:00 11/10/16 12:00 Intake and Output: 11/10/16 11/10/16 06:59 18:59 Intake Total 940 Output Total 350 Balance 590 - Medications Medications: Current Medications Acetaminophen (Tylenol 325mg Tab) 650 mg PO Q6H PRN PRN Reason: Pain, moderate (4-7) Last Admin: 11/10/16 08:00 Dose: 650 mg Artificial Tears (Artificial Tears) 0.2 ml OU DAILY PRN PRN Reason: Dry skin Last Admin: 11/07/16 10:25 Dose: 2 drop Ascorbic Acid (Vitamin C 500 Mg Tab) 500 mg PO BID [facility] Last Admin: 11/10/16 10:17 Dose: 500 mg Carvedilol (Coreg) 6.25 mg PO BID [facility] Last Admin: 11/10/16 10:17 Dose: 6.25 mg Collagenase (Santyl) 0 gm TOP DAILY [facility] Last Admin: 11/10/16 10:25 Dose: Not Given Ferrous Sulfate (Feosol Liq) 300 mg PO TID [facility] Last Admin: 11/10/16 13:50 Dose: 300 mg Furosemide (Lasix) 40 mg IVP DAILY [facility] Last Admin: 11/10/16 10:18 Dose: 40 mg Meropenem 250 mg/ Sodium (Chloride) 100 mls @ 100 mls/hr IVPB Q12H [facility] PRN Reason: Protocol Stop: 11/19/16 09:31 Last Admin: 11/10/16 10:19 Dose: 100 mls/hr Insulin Detemir (Levemir) 7 unit SC BID [facility] Last Admin: 11/10/16 10:00 Dose: 7 unit Insulin Human Lispro (Humalog Med) 0 units SC ACHS [facility] PRN Reason: Protocol Last Admin: 11/10/16 16:24 Dose: Not Given Metoclopramide HCl (Reglan) 5 mg IVP ACHS [facility] Last Admin: 11/10/16 16:30 Dose: Not Given Multi-Ingredient Cream (Hydrocerin Cream) 0 ea TOP BID [facility] Last Admin: 11/10/16 13:47 Dose: 1 unit Multivitamins/Minerals (Therapeutic-M Tab) 1 tab PO 0800 [facility] Last Admin: 11/10/16 08:00 Dose: 1 tab Oxychlorosene Sodium (Clorpactin Wcs-90) 2 gm TOP DAILY [facility] Last Admin: 11/10/16 11:07 Dose: Not Given Pantoprazole Sodium (Protonix Ec Tab) 40 mg PO 0600,1600 [facility] Last Admin: 11/10/16 16:29 Dose: 40 mg Pregabalin (Lyrica) 100 mg PO TID [facility] Last Admin: 11/10/16 13:50 Dose: 100 mg Sodium Bicarbonate (Sodium Bicarbonate Tab) 2,600 mg PO QID [facility] Last Admin: 11/10/16 13:50 Dose: 2,600 mg Zinc Sulfate (Zinc Sulfate 220 Mg Cap) 220 mg PO DAILY [facility] Last Admin: 11/10/16 10:17 Dose: 220 mg - Labs Labs: 11/10/16 07:30 11/10/16 07:30 PT 13.3 Seconds (9.9-11.8) H 10/26/16 20:30 INR 1.23 (0.93-1.08) H 10/26/16 20:30 APTT 28.7 Seconds (23.7-30.8) 11/06/16 05:30 Attending/Attestation - Attestation I have personally seen and examined this patient.: Yes I have fully participated in the care of the patient.: Yes I have reviewed all pertinent clinical information, including history, physical exam and plan: Yes Notes (Text): I have seen and examined the patient with the resident. Agree with the above note with the following addition/ exception: Briefly this is 36 year old female with history of IDDM, HTN, dyslipidemia, RLE DVT, wheel chair bound, 2 amputated toes of left leg and chronic LE ulcer who presented with severe sepsis secondary to acute pyelonephritis, Acute on chronic kidney disease, AGMA , electrolyte abnormalities, anemia and hypotension. Patient is alert, awake and denies any complaints. She still has leukocytosis and anemia. Patient underwent I&D and Left foot wound culture is growing corynebacterium (contaminant) and MRSA. Patient is currently on daptomycin. Intraoperative wound culture is positive for MRSA. Continue supportive boot. PT recommended CLARITA vs HWS. Her blood sugars have improved. She has been non compliant with carb consistent diet. Her anemia is multifactorial s/p 1 unit PRBC . Patient refused to see account relationship manager at this time. Patient claims that she had a BM biopsy and she was told that it was normal. Her creatinine is getting worse. Discussed with manager filter. She will need HD tomorrow and possible renal biopsy on friday if patient agrees. 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 Patient is not oliguric. She was also found to have cardiomyopathy and was started on Coreg. Cardiology evaluation appreciated. Long-term prognosis is poor secondary to multiple medical problems and noncompliance with follow-up. Upon discharge patient will follow up with Dr Bunch. Dr Agustin Parker
--- NOTE | 2016-11-08 13:55 | RAD ---
HISTORY: Shortness of breath. Technique: Single view portable semi erect @ 13:00 COMPARISON: 10/31/2016. FINDINGS: LUNGS: Worsening pulmonary edema PLEURA: No significant pleural effusion identified, no pneumothorax apparent. CARDIOVASCULAR: Cardiomegaly/cardiogenic pulmonary edema Venous access catheter in stable, satisfactory position. OSSEOUS STRUCTURES: No significant abnormalities. VISUALIZED UPPER ABDOMEN: Normal. OTHER FINDINGS: None. IMPRESSION: Progressive, worsening pulmonary edema.
--- NOTE | 2016-11-08 14:44 | CP.PCM.PN ---
<Brennan Cantu - Last Filed: 11/08/16 14:39> Subjective - Date & Time of Evaluation Date of Evaluation: 11/08/16 Time of Evaluation: 14:39 - Subjective Subjective: Podiatry Progress Note - Dr. Craven 36 year old female patient seen at bedside POD#8 left foot I&D (DOS: 10/31/16). Patient is accompanied by mother at bedside. Patient sleeping at time of visit, AAOx3 and NAD. Patient seen wearing multipodus boots bilaterally, aware she is to wear boots at all times while in bed. Patient denies any changes to WoundVAC. Patient denies N/V/F/D/C/SOB/calf pain. No other pedal complaints at this time. Objective - Vital Signs/Intake and Output Vital Signs (last 24 hours): Temp Pulse Resp BP Pulse Ox 98.4 F 110 H 20 129/85 95 11/07/16 17:55 11/08/16 14:00 11/07/16 17:55 11/07/16 18:28 11/07/16 05:59 Intake and Output: 11/08/16 11/08/16 06:59 18:59 Intake Total 1960 120 Output Total 200 Balance 1960 -80 - Medications Medications: Current Medications Acetaminophen (Tylenol 325mg Tab) 650 mg PO Q6H PRN PRN Reason: Pain, moderate (4-7) Last Admin: 11/01/16 17:49 Dose: 650 mg Artificial Tears (Artificial Tears) 0.2 ml OU DAILY PRN PRN Reason: Dry skin Last Admin: 11/07/16 10:25 Dose: 2 drop Ascorbic Acid (Vitamin C 500 Mg Tab) 500 mg PO BID [facility] Last Admin: 11/08/16 10:34 Dose: 500 mg Carvedilol (Coreg) 6.25 mg PO BID [facility] Last Admin: 11/08/16 10:34 Dose: 6.25 mg Collagenase (Santyl) 0 gm TOP DAILY [facility] Last Admin: 11/08/16 10:35 Dose: 1 applic Ferrous Sulfate (Feosol Liq) 300 mg PO TID [facility] Last Admin: 11/08/16 13:30 Dose: Not Given Daptomycin 370 mg/ Sodium (Chloride) 100 mls @ 200 mls/hr IV QOTHERDAY [facility] Stop: 11/10/16 10:01 Last Admin: 11/07/16 12:24 Dose: 200 mls/hr Sodium Bicarbonate 50 meq/ (Sodium Chloride) 1,050 mls @ 100 mls/hr IV .[id number] [facility] Last Admin: 11/07/16 22:15 Dose: 100 mls/hr Insulin Detemir (Levemir) 7 unit SC BID [facility] Last Admin: 11/08/16 10:33 Dose: 7 unit Insulin Human Lispro (Humalog Med) 0 units SC [facility] PRN Reason: Protocol Last Admin: 11/08/16 12:49 Dose: 3 units Metoclopramide HCl (Reglan) 5 mg IVP ACHS [facility] Last Admin: 11/08/16 12:56 Dose: Not Given Multi-Ingredient Cream (Hydrocerin Cream) 0 ea TOP BID [facility] Last Admin: 11/08/16 10:35 Dose: 1 unit Multivitamins/Minerals (Therapeutic-M Tab) 1 tab PO 0800 [facility] Last Admin: 11/08/16 10:34 Dose: 1 tab Oxychlorosene Sodium (Clorpactin Wcs-90) 2 gm TOP DAILY [facility] Last Admin: 11/08/16 10:35 Dose: 2 gm Pantoprazole Sodium (Protonix Ec Tab) 40 mg PO 0600,1600 [facility] Last Admin: 11/08/16 05:31 Dose: 40 mg Pregabalin (Lyrica) 100 mg PO TID [facility] Last Admin: 11/08/16 13:47 Dose: 100 mg Sodium Bicarbonate (Sodium Bicarbonate Tab) 2,600 mg PO QID [facility] Last Admin: 11/08/16 13:47 Dose: 2,600 mg Zinc Sulfate (Zinc Sulfate 220 Mg Cap) 220 mg PO DAILY [facility] Last Admin: 11/08/16 10:34 Dose: 220 mg - Labs Labs: 11/08/16 07:00 11/08/16 07:00 PT 13.3 Seconds (9.9-11.8) H 10/26/16 20:30 INR 1.23 (0.93-1.08) H 10/26/16 20:30 APTT 28.7 Seconds (23.7-30.8) 11/06/16 05:30 - Constitutional Appears: Well, Non-toxic, No Acute Distress - Extremities Exam Additional comments: WoundVAC to left foot appears clean/dry/intact with no leakage detected. Approximately 60 mL drainage seen in canister. VASC: DP and PT pulses palpable 2/4 b/l. TG WNL b/l. No edema noted to left foot. NEURO: Gross sensation absent bilaterally. DERM: LLE = Ulceration #1 noted to left medial heel measuring approximately 3 x 3 cm with a fibrous base and no current drainage noted, granulation tissue noted. Ulceration #2 located distal to ulcer #1 measuring approximately 0.6 x 0.5 cm with a fibrous base and no drainage noted; no active bleeding noted; granular tissue noted. It is noted that a linear incision was made during sx opening the communication between ulcers #1 and #2. Ulceration noted to the posterior aspect of left heel with fibrous base, also contiguous with ulcers #1 and #2. All ulcerations +probe to bone, -malodor, -ascending erythema, +purulence at this visit. RLE = Nonblanchable patch of erythema noted to plantarposterior calcaneus. ORTHO: No pain on palpation noted to foot b/l. - Neurological Exam Neurological Exam: Alert, Awake, Oriented x3 - Psychiatric Exam Psychiatric exam: Normal Affect, Normal Mood Assessment and Plan - Assessment and Plan (Free Text) Assessment: 36 year old female 36 year old female PMHx IDDM, renal failure, sepsis, metabolic acidosis, UTI, CKD, anemia 1) POD#8 left foot incision and drainage with wound debridement; 2) Stage 1 pressure ulcer right heel Plan: Patient seen and evaluated at bedside Discussed with attending, Dr. Craven Chart, vitals, labs reviewed - afebrile, leukocytosis 19.1 (increasing, yesterday 11/07 @16.0), glucose 222 Left foot wound culture = MRSA Urine culture - yeast WoundVAC changed today. Canister found to have approximately 60 cc drainage total (50 cc reported on Friday, 11/06). - Change Friday Continue with Santyl to plantar heel wounds, apply with each VAC change Per ID, continue renally-adjusted Daptomycin; patient will need 6 weeks of abx Heel offloading shoe is to be worn on left foot only when weightbearing. Discussed with patient and nursing offloading boots should be on at all times while in bed. Patient to wear multipodus boots at all times while in bed to prevent progression of pressure ulcer formation R heel. Continue Eucerin cream bilateral LE BID Prognosis for limb salvage poor At this point, no further debridements are considered for left foot; will be seen in followup Podiatry will continue to follow patient while in house <Logan Craven - Last Filed: 11/08/16 18:50> Objective - Vital Signs/Intake and Output Vital Signs (last 24 hours): Temp Pulse Resp BP Pulse Ox 98.4 F 110 H 20 129/85 95 11/07/16 17:55 11/08/16 14:00 11/07/16 17:55 11/07/16 18:28 11/07/16 05:59 Intake and Output: 11/08/16 11/08/16 06:59 18:59 Intake Total 1960 120 Output Total 200 Balance 1960 -80 - Medications Medications: Current Medications Acetaminophen (Tylenol 325mg Tab) 650 mg PO Q6H PRN PRN Reason: Pain, moderate (4-7) Last Admin: 11/01/16 17:49 Dose: 650 mg Artificial Tears (Artificial Tears) 0.2 ml OU DAILY PRN PRN Reason: Dry skin Last Admin: 11/07/16 10:25 Dose: 2 drop Ascorbic Acid (Vitamin C 500 Mg Tab) 500 mg PO BID [facility] Last Admin: 11/08/16 10:34 Dose: 500 mg Carvedilol (Coreg) 6.25 mg PO BID [facility] Last Admin: 11/08/16 10:34 Dose: 6.25 mg Collagenase (Santyl) 0 gm TOP DAILY [facility] Last Admin: 11/08/16 10:35 Dose: 1 applic Ferrous Sulfate (Feosol Liq) 300 mg PO TID [facility] Last Admin: 11/08/16 13:30 Dose: Not Given Daptomycin 370 mg/ Sodium (Chloride) 100 mls @ 200 mls/hr IV QOTHERDAY [facility] Stop: 11/10/16 10:01 Last Admin: 11/07/16 12:24 Dose: 200 mls/hr Insulin Detemir (Levemir) 7 unit SC BID [facility] Last Admin: 11/08/16 10:33 Dose: 7 unit Insulin Human Lispro (Humalog Med) 0 units SC ACHS [facility] PRN Reason: Protocol Last Admin: 11/08/16 17:40 Dose: Not Given Metoclopramide HCl (Reglan) 5 mg IVP ACHS [facility] Last Admin: 11/08/16 17:11 Dose: Not Given Multi-Ingredient Cream (Hydrocerin Cream) 0 ea TOP BID [facility] Last Admin: 11/08/16 10:35 Dose: 1 unit Multivitamins/Minerals (Therapeutic-M Tab) 1 tab PO 0800 [facility] Last Admin: 11/08/16 10:34 Dose: 1 tab Oxychlorosene Sodium (Clorpactin Wcs-90) 2 gm TOP DAILY [facility] Last Admin: 11/08/16 10:35 Dose: 2 gm Pantoprazole Sodium (Protonix Ec Tab) 40 mg PO 0600,1600 [facility] Last Admin: 11/08/16 17:11 Dose: Not Given Pregabalin (Lyrica) 100 mg PO TID [facility] Last Admin: 11/08/16 13:47 Dose: 100 mg Sodium Bicarbonate (Sodium Bicarbonate Tab) 2,600 mg PO QID [facility] Last Admin: 11/08/16 13:47 Dose: 2,600 mg Zinc Sulfate (Zinc Sulfate 220 Mg Cap) 220 mg PO DAILY [facility] Last Admin: 11/08/16 10:34 Dose: 220 mg - Labs Labs: 11/08/16 07:00 11/08/16 07:00 PT 13.3 Seconds (9.9-11.8) H 10/26/16 20:30 INR 1.23 (0.93-1.08) H 10/26/16 20:30 APTT 28.7 Seconds (23.7-30.8) 11/06/16 05:30 Attending/Attestation - Attestation I have personally seen and examined this patient.: Yes I have fully participated in the care of the patient.: Yes I have reviewed all pertinent clinical information, including history, physical exam and plan: Yes
--- NOTE | 2016-11-08 23:11 | CP.PCM.PN ---
Subjective - Date & Time of Evaluation Date of Evaluation: 11/08/16 Time of Evaluation: 12:00 - Subjective Subjective: Patient denies being short of breath, drowsy during encounter; Objective - Vital Signs/Intake and Output Vital Signs (last 24 hours): Temp Pulse Resp BP Pulse Ox 98.4 F 110 H 20 129/85 95 11/07/16 17:55 11/08/16 14:00 11/07/16 17:55 11/07/16 18:28 11/07/16 05:59 Intake and Output: 11/08/16 11/09/16 18:59 06:59 Intake Total 120 540 Output Total 200 800 Balance -80 -260 - Medications Medications: Current Medications Acetaminophen (Tylenol 325mg Tab) 650 mg PO Q6H PRN PRN Reason: Pain, moderate (4-7) Last Admin: 11/01/16 17:49 Dose: 650 mg Artificial Tears (Artificial Tears) 0.2 ml OU DAILY PRN PRN Reason: Dry skin Last Admin: 11/07/16 10:25 Dose: 2 drop Ascorbic Acid (Vitamin C 500 Mg Tab) 500 mg PO BID [facility] Last Admin: 11/08/16 19:02 Dose: Not Given Carvedilol (Coreg) 6.25 mg PO BID [facility] Last Admin: 11/08/16 18:48 Dose: 6.25 mg Collagenase (Santyl) 0 gm TOP DAILY [facility] Last Admin: 11/08/16 10:35 Dose: 1 applic Ferrous Sulfate (Feosol Liq) 300 mg PO TID [facility] Last Admin: 11/08/16 19:01 Dose: Not Given Daptomycin 370 mg/ Sodium (Chloride) 100 mls @ 200 mls/hr IV QOTHERDAY [facility] Stop: 11/10/16 10:01 Last Admin: 11/07/16 12:24 Dose: 200 mls/hr Insulin Detemir (Levemir) 7 unit SC BID [facility] Last Admin: 11/08/16 19:01 Dose: Not Given Insulin Human Lispro (Humalog Med) 0 units SC ACHS [facility] PRN Reason: Protocol Last Admin: 11/08/16 21:35 Dose: Not Given Metoclopramide HCl (Reglan) 5 mg IVP ACHS [facility] Last Admin: 11/08/16 21:35 Dose: Not Given Multi-Ingredient Cream (Hydrocerin Cream) 0 ea TOP BID [facility] Last Admin: 11/08/16 19:01 Dose: Not Given Multivitamins/Minerals (Therapeutic-M Tab) 1 tab PO 0800 [facility] Last Admin: 11/08/16 10:34 Dose: 1 tab Oxychlorosene Sodium (Clorpactin Wcs-90) 2 gm TOP DAILY [facility] Last Admin: 11/08/16 10:35 Dose: 2 gm Pantoprazole Sodium (Protonix Ec Tab) 40 mg PO 0600,1600 [facility] Last Admin: 11/08/16 17:11 Dose: Not Given Pregabalin (Lyrica) 100 mg PO TID [facility] Last Admin: 11/08/16 18:48 Dose: 100 mg Sodium Bicarbonate (Sodium Bicarbonate Tab) 2,600 mg PO QID [facility] Last Admin: 11/08/16 22:19 Dose: 2,600 mg Zinc Sulfate (Zinc Sulfate 220 Mg Cap) 220 mg PO DAILY [facility] Last Admin: 11/08/16 10:34 Dose: 220 mg - Labs Labs: 11/08/16 07:00 11/08/16 07:00 PT 13.3 Seconds (9.9-11.8) H 10/26/16 20:30 INR 1.23 (0.93-1.08) H 10/26/16 20:30 APTT 28.7 Seconds (23.7-30.8) 11/06/16 05:30 - Constitutional Appears: No Acute Distress - Eye Exam Eye Exam: Normal appearance - ENT Exam ENT Exam: Mucous Membranes Moist - Respiratory Exam Additional comments: bilateral rales present; tachypeic; - Cardiovascular Exam Cardiovascular Exam: REGULAR RHYTHM, +S1, +S2 - GI/Abdominal Exam GI & Abdominal Exam: Soft. absent: Distended, Tenderness - Extremities Exam Additional comments: no leg edema; - Neurological Exam Neurological Exam: Alert, Awake - Psychiatric Exam Psychiatric exam: absent: Agitated - Skin Skin Exam: Normal Color, Warm. absent: Cyanosis Assessment and Plan (1) Acute renal failure Assessment & Plan: EMMETT on CKD; exact baseline renal function unclear with only recent serum creat being ~3 in September 2016; off HD since past 6 days to assess renal function with serum creat at relative plateau since past 2 days but patient's eGFR 10 ml/min not adequate and is major contributor to severe metabolic acidosis which is not being corrected despite being given bicarbonate containing IVF and on PO bicarb; Volume overloaded on exam and CXR findings today; re-starting HD today for volume overload and metabolic acidosis; -HD on 3K/2.5Ca/34HCO3 bath, over 2 hrs, 2L UF today; dialyzing again tomorrow; will need outpatient placement (at least for EMMETT, cannot establish ESRD status yet) -Will consider renal biopsy for Friday to assess etiology of EMMETT -Still awaiting urine cytology (due to severe pyuria); will re-order Status: Acute (2) CKD (chronic kidney disease) Assessment & Plan: See above; biopsy may shed light on etiology and also on degree of chronicity/ fibrosis; Status: Chronic (3) Anemia Assessment & Plan: Hgb relatively stable; last aranesp dose yesterday, will continue weekly; Status: Acute (4) Metabolic acidosis Assessment & Plan: Severe; in the setting of advanced renal insufficiency; HD support as above; Status: Acute (5) Sepsis Assessment & Plan: On dapto every other day; needs to be re-dosed after HD; will check urine for AFB due to pyuria; unclear significance of yeast in urine; will discuss with ID; Status: Acute
[2016-11-09] MEDS: Pantoprazole 40 mg EC Tab PO SCH ×2 (05:38→18:55)
[2016-11-09 06:50] LABS: BASO # 0.04 K/mm3 (0.0-2.0); BASO % 0.2 % (0.0-3.0); EOS # 0.2 (0.0-0.7); EOS % 1.2 % (1.5-5.0); GRAN # 14.99 (1.4-6.5); GRAN % 83.6 % (50.0-68.0); LYMPH # 1.7 (1.2-3.4); LYMPH % 9.4 % (22.0-35.0); MEAN CELL VOLUME 88.5 fl (80.0-105.0); MEAN CORPUSCULAR HEMOGLOBIN 28.6 pg (25.0-35.0); MEAN CORPUSCULAR HGB CONC 32.3 g/dl (31.0-37.0); MEAN PLATELET VOLUME 9.1 fl (7.0-11.0); MONO % 5.6 % (1.0-6.0); RED CELL DISTRIBUTION WIDTH 16.7 % (11.5-14.5)
[2016-11-09 07:01] LABS: ALB/GLOB RATIO 0.6 (1.1-1.8); BILIRUBIN,TOTAL 0.5 mg/dL (0.2-1.3); CALCIUM 8.1 mg/dL (8.4-10.5); TOTAL PROTEIN 7.5 g/dL (5.8-8.3)
[2016-11-09] MEDS: Insulin Lispro (humaLOG) MEDIUM Coverage SC SCH ×4 (08:10→22:39)
[2016-11-09 08:30] LABS: HEMATOCRIT 22.3 % (36.0-48.0)
[2016-11-09] MEDS: Multivitamin With Minerals Tab PO SCH (10:17)
[2016-11-09] MEDS: Oxychlorosene Topical 2 gm Packet TOP SCH (10:18)
[2016-11-09] MEDS: Insulin Detemir 100 units/ml Vial (Levemir) SC SCH ×2 (10:20→18:56)
[2016-11-09] MEDS: Hydrocerin(120 gm) TOP SCH ×2 (10:20→18:57)
[2016-11-09] MEDS: Collagenase 250 Units/gm Ointment(30 gm) TOP SCH (10:21)
[2016-11-09] MEDS: Ferrous Sulfate 300 mg/5 mL Liq UD PO SCH ×3 (10:23→18:58)
--- NOTE | 2016-11-09 12:55 | PN ---
DATE: SUBJECTIVE: The patient is experiencing shortness of breath. She has unusual facial edema today. She denies any itchiness. PHYSICAL EXAMINATION VITAL SIGNS: Blood pressure 150/90, heart rate 108, temperature 98, respirations 22. HEENT: Pale conjunctivae with periorbital edema. NECK: No JVD. CHEST: Diminished breath sound over the bases. HEART: S1 and S2 regular. EXTREMITIES: No pedal edema. LABORATORY DATA: Hemoglobin and hematocrit 7.2 and 22.3, white count 18,000, platelet count 478,000. SMA-7: Sodium 147, potassium 4, chloride 112, CO2 20, glucose 167, BUN 47, creatinine 4.6. Chest x-ray done yesterday progressive worsening pulmonary edema. I did review Dr. Preston's evaluation for yesterday. ASSESSMENT: 1. Congestive heart failure. 2. Acute renal failure. 3. Anemia. 4. Status post incision and drainage of left foot infection. CONDITIONS: Continue Coreg 6.25 mg twice a day. Continue Feosol 300 mg t.i.d. Start Lasix at 40 mg intravenously daily including stat dose now. I will further discuss the case with Dr. Preston. Semaj Ryan MD
--- NOTE | 2016-11-09 13:46 | CP.PCM.PN ---
<Preeti Albarran - Last Filed: 11/09/16 13:53> Subjective - Date & Time of Evaluation Date of Evaluation: 11/09/16 Time of Evaluation: 09:00 - Subjective Subjective: Hospitalist Service Progress Note: Patient seen and examined at bedside. Per nursing, no acute events overnight. Patient is resting comfortably. Denies headaches, dizziness, cp, palpitations, sob, abdominal pain, urinary symptoms. Objective - Vital Signs/Intake and Output Vital Signs (last 24 hours): Temp Pulse Resp BP Pulse Ox 98.0 F 108 H 22 150/90 98 11/09/16 06:00 11/09/16 10:18 11/09/16 06:00 11/09/16 10:18 11/09/16 06:00 Intake and Output: 11/09/16 11/09/16 06:59 18:59 Intake Total 540 480 Output Total 800 200 Balance -260 280 - Medications Medications: Current Medications Acetaminophen (Tylenol 325mg Tab) 650 mg PO Q6H PRN PRN Reason: Pain, moderate (4-7) Last Admin: 11/01/16 17:49 Dose: 650 mg Artificial Tears (Artificial Tears) 0.2 ml OU DAILY PRN PRN Reason: Dry skin Last Admin: 11/07/16 10:25 Dose: 2 drop Ascorbic Acid (Vitamin C 500 Mg Tab) 500 mg PO BID [facility] Last Admin: 11/09/16 10:16 Dose: 500 mg Carvedilol (Coreg) 6.25 mg PO BID [facility] Last Admin: 11/09/16 10:18 Dose: 6.25 mg Collagenase (Santyl) 0 gm TOP DAILY [facility] Last Admin: 11/09/16 10:21 Dose: Not Given Ferrous Sulfate (Feosol Liq) 300 mg PO TID [facility] Last Admin: 11/09/16 10:23 Dose: 300 mg Furosemide (Lasix) 40 mg IVP DAILY [facility] Daptomycin 370 mg/ Sodium (Chloride) 100 mls @ 200 mls/hr IV QOTHERDAY [facility] Stop: 11/10/16 10:01 Last Admin: 11/09/16 10:19 Dose: 200 mls/hr Insulin Detemir (Levemir) 7 unit SC BID [facility] Last Admin: 11/09/16 10:20 Dose: 7 unit Insulin Human Lispro (Humalog Med) 0 units SC ACHS [facility] PRN Reason: Protocol Last Admin: 11/09/16 08:10 Dose: 1 units Metoclopramide HCl (Reglan) 5 mg IVP ACHS [facility] Last Admin: 11/09/16 08:17 Dose: Not Given Multi-Ingredient Cream (Hydrocerin Cream) 0 ea TOP BID [facility] Last Admin: 11/09/16 10:20 Dose: Not Given Multivitamins/Minerals (Therapeutic-M Tab) 1 tab PO 0800 [facility] Last Admin: 11/09/16 10:17 Dose: 1 tab Oxychlorosene Sodium (Clorpactin Wcs-90) 2 gm TOP DAILY [facility] Last Admin: 11/09/16 10:18 Dose: Not Given Pantoprazole Sodium (Protonix Ec Tab) 40 mg PO 0600,1600 [facility] Last Admin: 11/09/16 05:38 Dose: 40 mg Pregabalin (Lyrica) 100 mg PO TID [facility] Last Admin: 11/09/16 10:16 Dose: 100 mg Sodium Bicarbonate (Sodium Bicarbonate Tab) 2,600 mg PO QID [facility] Last Admin: 11/09/16 10:17 Dose: 2,600 mg Zinc Sulfate (Zinc Sulfate 220 Mg Cap) 220 mg PO DAILY [facility] Last Admin: 11/09/16 10:18 Dose: 220 mg - Labs Labs: 11/09/16 06:00 11/09/16 06:00 PT 13.3 Seconds (9.9-11.8) H 10/26/16 20:30 INR 1.23 (0.93-1.08) H 10/26/16 20:30 APTT 28.7 Seconds (23.7-30.8) 11/06/16 05:30 - Constitutional Appears: Non-toxic, No Acute Distress - Head Exam Head Exam: ATRAUMATIC, NORMAL INSPECTION - Eye Exam Eye Exam: EOMI, Normal appearance - ENT Exam ENT Exam: Mucous Membranes Moist - Neck Exam Neck Exam: Full ROM - Respiratory Exam Respiratory Exam: Decreased Breath Sounds, NORMAL BREATHING PATTERN. absent: Rales, Rhonchi, Wheezes - Cardiovascular Exam Cardiovascular Exam: REGULAR RHYTHM, +S1, +S2 - GI/Abdominal Exam GI & Abdominal Exam: Soft. absent: Guarding, Rigid, Tenderness - Extremities Exam Additional comments: Wound vac in place - Neurological Exam Neurological Exam: Alert, Awake, Oriented x3 - Psychiatric Exam Psychiatric exam: Normal Affect, Normal Mood - Skin Skin Exam: Dry, Warm Assessment and Plan - Assessment and Plan (Free Text) Assessment: 36yo F PMH DM, HTN, HLD, RLE dvt and LLE ulcer who presents w/ Septic shock 2/2 pyelonephritis 2/2 untreated UTI. EMMETT still present, improving on dialysis. Metabolic acidosis resolved. Also found to be anemic, likely due to chronic disease (diabetes). Found to have UTI and LLE ulcer growing MRSA. MRI shows osteomyelitis of L calcaneus and diffuse plantar proximal aspect of L foot. s/p Merrem x6d. Plan: 1. Septic Shock - shock has resolved, BP stable - likely 2/2 osteomyelitis vs pyelo vs untreated UTI (urine noted in sorenson container) - pt clinically improving, shock has resolved off pressors - Sepsis criteria still met - Daptomycin - ID consulted, recs appreciated - L foot wound cx growing MRSA and corynebacterium - Ucx growing MRSA - tachycardia resolved- HR in the 90s - leukocytosis still present, but improving 2. LLE ulcer - s/p I&D - wound care per podiatry - L Foot cx growing MRSA and corynbacterium - MRI L foot showed osteomyelitis of L calcaneus and diffuse plantar proximal aspect of L foot. - podiatry consulted, recs appreciated 3. EMMETT on CKD vs worsening CKD - Cr 4.6 today - Will go for HD today - Continue Lasix 40mg IV - Renal biopsy for Friday - [place] [facility] [place] consulted, recs appreciated concerning long-term dialysis - RIJ in place 4. Anemia likely 2/2 chronic dz - s/p 5u pRBC transfused - Hgb 7.2 today - likely due to chronic kidney 2/2 uncontrolled DM2 - Continue feosol - Dr. Weaver consulted- appreciate recs- note reviewed, patient does not want her care at this time as patient has Dr. Granados outpatient, as per note the patient claims she already completed a bone marrow biopsy and was recommended to take iron - kappa/lambda are elevated 5. Hx DM - Levemir 7 units BID - ISS med 6. Peripheral Neuropathy - likely 2/2 to DM - Lyrica 100 TID 7. Cardiomyopathy - ECHO shows EF of 35% - Cardioogy consulted, Dr. Ryan - Coreg 6.25 BID PPX - protonix - no scds due to foot infection, no lovenox due to renal function, no heparin due to decreasing H/H Disposition: - patient moved to remote tele - possible d/c friday pending nephro recs <Agustin Parker B - Last Filed: 11/10/16 17:23> Objective - Vital Signs/Intake and Output Vital Signs (last 24 hours): Temp Pulse Resp BP Pulse Ox 99.1 F 106 H 20 136/84 96 11/10/16 12:00 11/10/16 12:00 11/10/16 12:00 11/10/16 12:00 11/10/16 12:00 Intake and Output: 11/10/16 11/10/16 06:59 18:59 Intake Total 940 Output Total 350 Balance 590 - Medications Medications: Current Medications Acetaminophen (Tylenol 325mg Tab) 650 mg PO Q6H PRN PRN Reason: Pain, moderate (4-7) Last Admin: 11/10/16 08:00 Dose: 650 mg Artificial Tears (Artificial Tears) 0.2 ml OU DAILY PRN PRN Reason: Dry skin Last Admin: 11/07/16 10:25 Dose: 2 drop Ascorbic Acid (Vitamin C 500 Mg Tab) 500 mg PO BID [facility] Last Admin: 11/10/16 10:17 Dose: 500 mg Carvedilol (Coreg) 6.25 mg PO BID [facility] Last Admin: 11/10/16 10:17 Dose: 6.25 mg Collagenase (Santyl) 0 gm TOP DAILY [facility] Last Admin: 11/10/16 10:25 Dose: Not Given Ferrous Sulfate (Feosol Liq) 300 mg PO TID [facility] Last Admin: 11/10/16 13:50 Dose: 300 mg Furosemide (Lasix) 40 mg IVP DAILY [facility] Last Admin: 11/10/16 10:18 Dose: 40 mg Meropenem 250 mg/ Sodium (Chloride) 100 mls @ 100 mls/hr IVPB Q12H [facility] PRN Reason: Protocol Stop: 11/19/16 09:31 Last Admin: 11/10/16 10:19 Dose: 100 mls/hr Insulin Detemir (Levemir) 7 unit SC BID [facility] Last Admin: 11/10/16 10:00 Dose: 7 unit Insulin Human Lispro (Humalog Med) 0 units SC ACHS [facility] PRN Reason: Protocol Last Admin: 11/10/16 16:24 Dose: Not Given Metoclopramide HCl (Reglan) 5 mg IVP ACHS [facility] Last Admin: 11/10/16 16:30 Dose: Not Given Multi-Ingredient Cream (Hydrocerin Cream) 0 ea TOP BID [facility] Last Admin: 11/10/16 13:47 Dose: 1 unit Multivitamins/Minerals (Therapeutic-M Tab) 1 tab PO 0800 [facility] Last Admin: 11/10/16 08:00 Dose: 1 tab Oxychlorosene Sodium (Clorpactin Wcs-90) 2 gm TOP DAILY [facility] Last Admin: 11/10/16 11:07 Dose: Not Given Pantoprazole Sodium (Protonix Ec Tab) 40 mg PO 0600,1600 [facility] Last Admin: 11/10/16 16:29 Dose: 40 mg Pregabalin (Lyrica) 100 mg PO TID [facility] Last Admin: 11/10/16 13:50 Dose: 100 mg Sodium Bicarbonate (Sodium Bicarbonate Tab) 2,600 mg PO QID [facility] Last Admin: 11/10/16 13:50 Dose: 2,600 mg Zinc Sulfate (Zinc Sulfate 220 Mg Cap) 220 mg PO DAILY [facility] Last Admin: 11/10/16 10:17 Dose: 220 mg - Labs Labs: 11/10/16 07:30 11/10/16 07:30 PT 13.3 Seconds (9.9-11.8) H 10/26/16 20:30 INR 1.23 (0.93-1.08) H 10/26/16 20:30 APTT 28.7 Seconds (23.7-30.8) 11/06/16 05:30 Attending/Attestation - Attestation I have personally seen and examined this patient.: Yes I have fully participated in the care of the patient.: Yes I have reviewed all pertinent clinical information, including history, physical exam and plan: Yes Notes (Text): I have seen and examined the patient with the resident. Agree with the above note with the following addition/ exception: Briefly this is 36 year old female with history of IDDM, HTN, dyslipidemia, RLE DVT, wheel chair bound, 2 amputated toes of left leg and chronic LE ulcer who presented with severe sepsis secondary to acute pyelonephritis, osteomyelitis of L foot, Acute on chronic kidney disease, AGMA, electrolyte abnormalities, and anemia. Patient is alert, awake and denies any complaints. She still has leukocytosis and anemia. Patient underwent I&D and Left foot wound culture is growing corynebacterium (contaminant) and MRSA. Patient is currently on daptomycin. Intraoperative wound culture is positive for MRSA. Continue supportive boot and wound vac. PT recommended CLARITA vs HWS. Her blood sugars have improved. She has been non compliant with carb consistent diet. Her anemia is multifactorial. Patient refused to see broomcorn scraper at this time. Patient claims that she had a BM biopsy and she was told that it was normal. Her creatinine is getting worse. Discussed with core oven tender. She will need HD today and possible renal biopsy on Friday if patient agrees. Patient still need to be monitored closely to evaluate if she will need HD skilled nursing. Patient is not oliguric. She was also found to have cardiomyopathy and was started on Coreg. Cardiology evaluation appreciated. Long-term prognosis is poor secondary to multiple medical problems and noncompliance with follow-up. Upon discharge patient will follow up with Dr Bunch. Dr Agustin Parker
--- NOTE | 2016-11-09 15:00 | PN ---
DATE: 11/09/2016 SUBJECTIVE: The patient is in bed, in no acute distress, nontoxic. PHYSICAL EXAMINATION: VITAL SIGNS: Temperature is 98, blood pressure is 150/90, respiratory rate of 16. HEENT: Unremarkable. NECK: Supple. LUNGS: Decreased breath sounds. HEART: Normal S1 and S2. ABDOMEN: Soft. LABORATORY DATA: Reveals a white count of 18,000, hemoglobin of 7.2, platelets of 478. Chemistries reveals the BUN of 47, creatinine of 4.6. Microbiology; yeast in the urine. Stool for C. diff is negative toxin, negative antigen. Review of orders reveals the patient to be on daptomycin, which requires renewal, we will do so. ASSESSMENT AND PLAN: This is a 36-year-old with severe sepsis, acute renal failure due to acute pyelonephritis, growing methicillin-resistant Staphylococcus aureus in the urine as well as in the left foot abscess. MRI showing osteomyelitis, status post incision and drainage post procedure day #9 with a diabetic neuropathy, hypertension, on renally adjusted daptomycin. We will need 6 weeks of antibiotics. Should have CBC, SMA-18, sed rate, C-reactive protein and a CPK once weekly. Dusty Crabtree MD
[2016-11-09] MEDS ORDERED: Dextrose 50% SYRINGE Inj (50 ml) IVP ONE (18:49)
[2016-11-10] MEDS: Pantoprazole 40 mg EC Tab PO SCH ×2 (05:16→16:29)
[2016-11-10] MEDS: Multivitamin With Minerals Tab PO SCH (08:00)
[2016-11-10] MEDS: Insulin Lispro (humaLOG) MEDIUM Coverage SC SCH ×4 (08:02→21:51)
[2016-11-10 08:06] LABS: BASO # 0.05 K/mm3 (0.0-2.0); BASO % 0.3 % (0.0-3.0); EOS # 0.1 (0.0-0.7); EOS % 0.8 % (1.5-5.0); GRAN # 13.62 (1.4-6.5); GRAN % 86.3 % (50.0-68.0); LYMPH # 1.2 (1.2-3.4); LYMPH % 7.3 % (22.0-35.0); MEAN CORPUSCULAR HEMOGLOBIN 28.1 pg (25.0-35.0); MEAN CORPUSCULAR HGB CONC 31.3 g/dl (31.0-37.0); MONO # 0.8 (0.1-0.6); MONO % 5.3 % (1.0-6.0); RED CELL DISTRIBUTION WIDTH 16.9 % (11.5-14.5); WHITE BLOOD COUNT 15.8 10^3/ul (4.5-11.0)
[2016-11-10 08:15] LABS: HEMATOCRIT 22.4 % (36.0-48.0)
[2016-11-10 08:20] LABS: ALB/GLOB RATIO 0.6 (1.1-1.8); BILIRUBIN,TOTAL 0.5 mg/dL (0.2-1.3); CALCIUM 7.7 mg/dL (8.4-10.5); MAGNESIUM 1.8 mg/dL (1.7-2.2); PHOSPHOROUS 2.7 mg/dL (2.5-4.5); POTASSIUM 3.7 mmol/L (3.6-5.0); TOTAL PROTEIN 7.5 g/dL (5.8-8.3)
[2016-11-10] MEDS: Insulin Detemir 100 units/ml Vial (Levemir) SC SCH ×2 (10:00→17:57)
[2016-11-10] MEDS: Ferrous Sulfate 300 mg/5 mL Liq UD PO SCH ×3 (10:16→17:57)
[2016-11-10] MEDS: Collagenase 250 Units/gm Ointment(30 gm) TOP SCH (10:25)
[2016-11-10] MEDS: Oxychlorosene Topical 2 gm Packet TOP SCH (11:07)
[2016-11-10 11:35] LABS: URINE BILIRUBIN NEGATIVE (NEGATIVE); URINE BLOOD MODERATE (NEGATIVE); URINE GLUCOSE (UA) 250 mg/dL (NEGATIVE); URINE KETONE NEGATIVE (NEGATIVE); URINE LEUKOCYTE ESTERASE LARGE Leu/uL (NEGATIVE); URINE PROTEIN 100 mg/dL (<30 mg/dL); URINE UROBILINOGEN 0.2 E.U./dL (<1 E.U./dL)
[2016-11-10 11:36] LABS: URINE APPEARANCE TURBID (CLEAR); URINE COLOR YELLOW (YELLOW)
[2016-11-10 11:55] LABS: URINE BACTERIA MOD (NEG); URINE WBC TNTC /hpf (0-6)
--- NOTE | 2016-11-10 12:03 | PN ---
DATE: 11/10/2016 SUBJECTIVE: The patient is in bed, seen earlier in 378, bed 2. Family members are present at the bedside. The patient states she is doing better. She did have a fever this morning, which is new. PHYSICAL EXAMINATION: VITAL SIGNS: Temperature is 102.7, blood pressure is 155/70, respiratory rate is 22 and heart rate of 120. HEENT: Unremarkable. NECK: Supple. LUNGS: Decreased breath sounds. HEART: Normal S1 and S2. ABDOMEN: Soft. LABORATORY DATA: Reveals a white count of 15,800, hemoglobin of 7, platelets of 420. Coagulation is noted. Chemistries reveals the BUN of 28, creatinine of 3.1, which appears to be improving. Urinalysis is noted. Serology is reviewed. Hepatitis C antibody is reactive with PCR is undetectable. The patient had yeast in urine and MRSA in her left foot. Review of medications, the patient is on daptomycin. ASSESSMENT AND PLAN: This is a 36-year-old with severe sepsis, acute renal failure due to acute pyelonephritis, growing methicillin-resistant Staphylococcus aureus in urine as well as in the left foot. MRI showing osteomyelitis, status post incision and drainage, post procedure day #10 and diabetic neuropathy, hypertension, renally adjusted daptomycin, will need 6 weeks. Now has new fever of 102.7, tachycardia with systemic inflammatory response syndrome. We will repeat blood cultures, urine cultures, sputum cultures, and urinalysis. The patient did not seen toxic. We will also order a chest x-ray, portable. We will also order a procalcitonin. We will also order a stool C. diff if she has any diarrhea. We will continue the daptomycin. Pending blood cultures, urine cultures, urinalysis, sputum cultures, chest x-ray, procalcitonin, stool for C. diff if there is any diarrhea. The patient's last chemistries were today and alk phos is slightly elevated. We will also order an abdominal ultrasound, size of the common bile duct to be measured. We will add empiric meropenem pending . Review of the laboratory results reveals a coagulation and an INR of 1.23 and that was on the . We will also order a Doppler of the lower extremities. Dusty Crabtree MD
--- NOTE | 2016-11-10 12:57 | RAD ---
PROCEDURE: CHEST RADIOGRAPH, 1 VIEW HISTORY: fever COMPARISON: 11/08/2016 FINDINGS: LUNGS: Ill-defined diffuse infiltrate left greater than right. Decreased extent when compared to examination of 11/08. PLEURA: No pneumothorax or pleural fluid seen. CARDIOVASCULAR: Right internal jugular multi lumen central venous catheter. Normal heart size. No congestive change. OSSEOUS STRUCTURES: No significant abnormalities. VISUALIZED UPPER ABDOMEN: Normal. OTHER FINDINGS: None. IMPRESSION: Decreased bilateral ill-defined opacity compared to prior examination.
--- NOTE | 2016-11-10 13:05 | US ---
HISTORY: size of cbd COMPARISON: None. TECHNIQUE: Sonographic evaluation of the abdomen. FINDINGS: LIVER: Measures 17.0 cm. Normal echogenicity of the liver parenchyma. No mass. No intrahepatic bile duct dilatation. GALLBLADDER: Unremarkable. No gallstones. COMMON BILE DUCT: Measures 2 mm. No stones. No dilatation. PANCREAS: Unremarkable as visualized. No mass. No ductal dilatation. RIGHT KIDNEY: Measures 11.8cm. Diffusely increased cortical echogenicity, nonspecific. Please correlate with renal function testing. No mass, calculus or hydronephrosis. LEFT KIDNEY: Measures 12.6cm. Diffusely increased cortical echogenicity, nonspecific. Please correlate with renal function testing. No mass, calculus or hydronephrosis. SPLEEN: Normal in size and contour. No mass. AORTA: No aneurysmal dilatation. IVC: Unremarkable. OTHER FINDINGS: None. IMPRESSION: No evidence of biliary obstruction. Diffusely increased renal cortical echogenicity bilaterally. Please correlate with renal function testing. This may indicate diffuse medical renal disease.
[2016-11-10] MEDS: Hydrocerin(120 gm) TOP SCH ×2 (13:47→17:57)
--- NOTE | 2016-11-10 13:47 | CP.PCM.PN ---
<Pedrito Lobo - Last Filed: 11/10/16 13:43> Subjective - Date & Time of Evaluation Date of Evaluation: 11/10/16 Time of Evaluation: 13:43 - Subjective Subjective: Podiatry Progress Note - Dr. Craven 36 year old female patient seen at bedside POD#10 left foot I&D (DOS: 10/31/16) returning from ultrasound and x-ray. Patient is accompanied by mother at bedside. Patient is seen resting comfortably in bed, AAOx3 and in NAD. Patient states that she spiked a fever this morning but is feeling much better at the time of the visit. Patient is seen at bedside not wearing boots at all times while in bed. Patient's mother reports the boots got wet and she is unable to wear them. Denies any changes to WoundVAC. Patient denies N/V/F/D/C/SOB/calf pain. No other pedal complaints at this time. Objective - Vital Signs/Intake and Output Vital Signs (last 24 hours): Temp Pulse Resp BP Pulse Ox 102.7 F H 118 H 20 138/80 94 L 11/10/16 08:00 11/10/16 10:17 11/10/16 06:00 11/10/16 10:18 11/10/16 06:00 Intake and Output: 11/10/16 11/10/16 06:59 18:59 Intake Total 940 Output Total 350 Balance 590 - Medications Medications: Current Medications Acetaminophen (Tylenol 325mg Tab) 650 mg PO Q6H PRN PRN Reason: Pain, moderate (4-7) Last Admin: 11/10/16 08:00 Dose: 650 mg Artificial Tears (Artificial Tears) 0.2 ml OU DAILY PRN PRN Reason: Dry skin Last Admin: 11/07/16 10:25 Dose: 2 drop Ascorbic Acid (Vitamin C 500 Mg Tab) 500 mg PO BID [facility] Last Admin: 11/10/16 10:17 Dose: 500 mg Carvedilol (Coreg) 6.25 mg PO BID [facility] Last Admin: 11/10/16 10:17 Dose: 6.25 mg Collagenase (Santyl) 0 gm TOP DAILY [facility] Last Admin: 11/10/16 10:25 Dose: Not Given Ferrous Sulfate (Feosol Liq) 300 mg PO TID [facility] Last Admin: 11/10/16 10:16 Dose: 300 mg Furosemide (Lasix) 40 mg IVP DAILY [facility] Last Admin: 11/10/16 10:18 Dose: 40 mg Meropenem 250 mg/ Sodium (Chloride) 100 mls @ 100 mls/hr IVPB Q12H [facility] PRN Reason: Protocol Stop: 11/19/16 09:31 Last Admin: 11/10/16 10:19 Dose: 100 mls/hr Insulin Detemir (Levemir) 7 unit SC BID [facility] Last Admin: 11/09/16 18:56 Dose: Not Given Insulin Human Lispro (Humalog Med) 0 units SC ACHS [facility] PRN Reason: Protocol Last Admin: 11/10/16 12:46 Dose: 5 units Metoclopramide HCl (Reglan) 5 mg IVP ACHS [facility] Last Admin: 11/10/16 08:01 Dose: Not Given Multi-Ingredient Cream (Hydrocerin Cream) 0 ea TOP BID [facility] Last Admin: 11/09/16 18:57 Dose: 1 unit Multivitamins/Minerals (Therapeutic-M Tab) 1 tab PO 0800 [facility] Last Admin: 11/10/16 08:00 Dose: 1 tab Oxychlorosene Sodium (Clorpactin Wcs-90) 2 gm TOP DAILY [facility] Last Admin: 11/10/16 11:07 Dose: Not Given Pantoprazole Sodium (Protonix Ec Tab) 40 mg PO 0600,1600 [facility] Last Admin: 11/10/16 05:16 Dose: 40 mg Pregabalin (Lyrica) 100 mg PO TID [facility] Last Admin: 11/10/16 10:17 Dose: 100 mg Sodium Bicarbonate (Sodium Bicarbonate Tab) 2,600 mg PO QID [facility] Last Admin: 11/10/16 10:16 Dose: 2,600 mg Zinc Sulfate (Zinc Sulfate 220 Mg Cap) 220 mg PO DAILY [facility] Last Admin: 11/10/16 10:17 Dose: 220 mg - Labs Labs: 11/10/16 07:30 11/10/16 07:30 PT 13.3 Seconds (9.9-11.8) H 10/26/16 20:30 INR 1.23 (0.93-1.08) H 10/26/16 20:30 APTT 28.7 Seconds (23.7-30.8) 11/06/16 05:30 - Constitutional Appears: Well, Non-toxic, No Acute Distress - Extremities Exam Additional comments: WoundVAC to left foot appears clean/dry/intact with no leakage detected. Approximately 100 mL drainage seen in canister. VASC: DP and PT pulses palpable 2/4 b/l. TG WNL b/l. No edema noted to left foot. NEURO: Gross sensation absent bilaterally. DERM: LLE = Ulceration #1 noted to left medial heel measuring approximately 3 x 3 cm with a fibrous base and no current drainage noted, granulation tissue noted. Ulceration #2 located distal to ulcer #1 measuring approximately 0.6 x 0.5 cm with a fibrous base and no drainage noted; no active bleeding noted; granular tissue noted. It is noted that a linear incision was made during sx opening the communication between ulcers #1 and #2. Ulceration noted to the posterior aspect of left heel with fibrous base, also contiguous with ulcers #1 and #2. All ulcerations +probe to bone, -malodor, -ascending erythema, +purulence at this visit. RLE = Nonblanchable patch of erythema noted to plantarposterior calcaneus. ORTHO: No pain on palpation noted to foot b/l. - Neurological Exam Neurological Exam: Awake, Oriented x3 - Psychiatric Exam Psychiatric exam: Normal Affect, Normal Mood Assessment and Plan - Assessment and Plan (Free Text) Assessment: 36 year old female 36 year old female PMHx IDDM, renal failure, sepsis, metabolic acidosis, UTI, CKD, anemia 1) POD#10 left foot incision and drainage with wound debridement; 2) Stage 1 pressure ulcer right heel Plan: Patient seen and evaluated at bedside Discussed with attending, Dr. Craven Chart, vitals, labs reviewed - afebrile, leukocytosis 15.8 Left foot wound culture = MRSA Urine culture - yeast WoundVAC changed today. Canister found to have approximately 100 cc drainage total Continue with Santyl to plantar heel wounds, apply with each VAC change Per ID, continue renally-adjusted Daptomycin; patient will need 6 weeks of abx Heel offloading shoe is to be worn on left foot only when weightbearing. Discussed with patient and nursing offloading boots should be on at all times while in bed. Patient to wear multipodus boots at all times while in bed to prevent progression of pressure ulcer formation R heel. Continue Eucerin cream bilateral LE BID Prognosis for limb salvage poor At this point, no further debridements are considered for left foot; will be seen in followup Podiatry will continue to follow patient while in house <Logan Craven - Last Filed: 11/11/16 08:18> Objective - Vital Signs/Intake and Output Vital Signs (last 24 hours): Temp Pulse Resp BP Pulse Ox 98.3 F 55 L 18 119/71 97 11/11/16 08:04 11/11/16 08:04 11/11/16 08:04 11/11/16 08:04 11/11/16 08:04 Intake and Output: 11/11/16 11/11/16 06:59 18:59 Intake Total 420 Output Total 600 Balance -180 - Medications Medications: Current Medications Artificial Tears (Artificial Tears) 0.2 ml OU DAILY PRN PRN Reason: Dry skin Last Admin: 11/07/16 10:25 Dose: 2 drop Ascorbic Acid (Vitamin C 500 Mg Tab) 500 mg PO BID [facility] Last Admin: 11/10/16 17:56 Dose: 500 mg Carvedilol (Coreg) 6.25 mg PO BID [facility] Last Admin: 11/10/16 17:55 Dose: 6.25 mg Collagenase (Santyl) 0 gm TOP DAILY [facility] Last Admin: 11/10/16 10:25 Dose: Not Given Ferrous Sulfate (Feosol Liq) 300 mg PO TID [facility] Last Admin: 11/10/16 17:57 Dose: 300 mg Furosemide (Lasix) 40 mg IVP DAILY [facility] Last Admin: 11/10/16 10:18 Dose: 40 mg Meropenem 250 mg/ Sodium (Chloride) 100 mls @ 100 mls/hr IVPB Q12H [facility] PRN Reason: Protocol Stop: 11/19/16 09:31 Last Admin: 11/10/16 21:51 Dose: 100 mls/hr Insulin Detemir (Levemir) 7 unit SC BID [facility] Last Admin: 11/10/16 17:57 Dose: Not Given Insulin Human Lispro (Humalog Med) 0 units SC ACHS [facility] PRN Reason: Protocol Last Admin: 11/10/16 21:51 Dose: Not Given Metoclopramide HCl (Reglan) 5 mg IVP ACHS [facility] Last Admin: 11/10/16 21:52 Dose: Not Given Multi-Ingredient Cream (Hydrocerin Cream) 0 ea TOP BID [facility] Last Admin: 11/10/16 17:57 Dose: 1 unit Multivitamins/Minerals (Therapeutic-M Tab) 1 tab PO 0800 [facility] Last Admin: 11/10/16 08:00 Dose: 1 tab Oxychlorosene Sodium (Clorpactin Wcs-90) 2 gm TOP DAILY [facility] Last Admin: 11/10/16 11:07 Dose: Not Given Pantoprazole Sodium (Protonix Ec Tab) 40 mg PO 0600,1600 [facility] Last Admin: 11/11/16 06:15 Dose: 40 mg Pregabalin (Lyrica) 100 mg PO TID [facility] Last Admin: 11/10/16 17:57 Dose: Not Given Sodium Bicarbonate (Sodium Bicarbonate Tab) 2,600 mg PO QID [facility] Last Admin: 11/10/16 21:52 Dose: 2,600 mg Zinc Sulfate (Zinc Sulfate 220 Mg Cap) 220 mg PO DAILY [facility] Last Admin: 11/10/16 10:17 Dose: 220 mg - Labs Labs: 11/11/16 07:33 11/11/16 07:33 PT 13.3 Seconds (9.9-11.8) H 10/26/16 20:30 INR 1.23 (0.93-1.08) H 10/26/16 20:30 APTT 28.7 Seconds (23.7-30.8) 11/06/16 05:30 Attending/Attestation - Attestation I have personally seen and examined this patient.: Yes I have fully participated in the care of the patient.: Yes I have reviewed all pertinent clinical information, including history, physical exam and plan: Yes
--- NOTE | 2016-11-10 14:35 | CP.PCM.PN ---
<Preeti Albarran - Last Filed: 11/10/16 14:51> Subjective - Date & Time of Evaluation Date of Evaluation: 11/10/16 Time of Evaluation: 09:20 - Subjective Subjective: Hospitalist Service Progress Note: Patient seen and examined at bedside. Patient had a temp of 103 this morning, cross cultures sent. Patient also had CBG 25 last night. Blood sugar this morning 404. Patient is doing well, still having diarrhea. Offers no other complaints at this time. Denies nausea, vomiting, headache, dizziness, cp, palpitations, sob, abd pain, urinary symptoms. Objective - Vital Signs/Intake and Output Vital Signs (last 24 hours): Temp Pulse Resp BP Pulse Ox 99.4 F 118 H 20 138/80 94 L 11/10/16 09:00 11/10/16 10:17 11/10/16 06:00 11/10/16 10:18 11/10/16 06:00 Intake and Output: 11/10/16 11/10/16 06:59 18:59 Intake Total 940 Output Total 350 Balance 590 - Medications Medications: Current Medications Acetaminophen (Tylenol 325mg Tab) 650 mg PO Q6H PRN PRN Reason: Pain, moderate (4-7) Last Admin: 11/10/16 08:00 Dose: 650 mg Artificial Tears (Artificial Tears) 0.2 ml OU DAILY PRN PRN Reason: Dry skin Last Admin: 11/07/16 10:25 Dose: 2 drop Ascorbic Acid (Vitamin C 500 Mg Tab) 500 mg PO BID [facility] Last Admin: 11/10/16 10:17 Dose: 500 mg Carvedilol (Coreg) 6.25 mg PO BID [facility] Last Admin: 11/10/16 10:17 Dose: 6.25 mg Collagenase (Santyl) 0 gm TOP DAILY [facility] Last Admin: 11/10/16 10:25 Dose: Not Given Ferrous Sulfate (Feosol Liq) 300 mg PO TID [facility] Last Admin: 11/10/16 13:50 Dose: 300 mg Furosemide (Lasix) 40 mg IVP DAILY [facility] Last Admin: 11/10/16 10:18 Dose: 40 mg Meropenem 250 mg/ Sodium (Chloride) 100 mls @ 100 mls/hr IVPB Q12H [facility] PRN Reason: Protocol Stop: 11/19/16 09:31 Last Admin: 11/10/16 10:19 Dose: 100 mls/hr Insulin Detemir (Levemir) 7 unit SC BID [facility] Last Admin: 11/09/16 18:56 Dose: Not Given Insulin Human Lispro (Humalog Med) 0 units SC [facility] PRN Reason: Protocol Last Admin: 11/10/16 12:46 Dose: 5 units Metoclopramide HCl (Reglan) 5 mg IVP ACHS [facility] Last Admin: 11/10/16 08:01 Dose: Not Given Multi-Ingredient Cream (Hydrocerin Cream) 0 ea TOP BID [facility] Last Admin: 11/10/16 13:47 Dose: 1 unit Multivitamins/Minerals (Therapeutic-M Tab) 1 tab PO 0800 [facility] Last Admin: 11/10/16 08:00 Dose: 1 tab Oxychlorosene Sodium (Clorpactin Wcs-90) 2 gm TOP DAILY [facility] Last Admin: 11/10/16 11:07 Dose: Not Given Pantoprazole Sodium (Protonix Ec Tab) 40 mg PO 0600,1600 [facility] Last Admin: 11/10/16 05:16 Dose: 40 mg Pregabalin (Lyrica) 100 mg PO TID [facility] Last Admin: 11/10/16 13:50 Dose: 100 mg Sodium Bicarbonate (Sodium Bicarbonate Tab) 2,600 mg PO QID [facility] Last Admin: 11/10/16 13:50 Dose: 2,600 mg Zinc Sulfate (Zinc Sulfate 220 Mg Cap) 220 mg PO DAILY [facility] Last Admin: 11/10/16 10:17 Dose: 220 mg - Labs Labs: 11/10/16 07:30 11/10/16 07:30 PT 13.3 Seconds (9.9-11.8) H 10/26/16 20:30 INR 1.23 (0.93-1.08) H 10/26/16 20:30 APTT 28.7 Seconds (23.7-30.8) 11/06/16 05:30 - Constitutional Appears: No Acute Distress - Head Exam Head Exam: ATRAUMATIC, NORMAL INSPECTION - Eye Exam Eye Exam: EOMI, Normal appearance Pupil Exam: NORMAL ACCOMODATION - ENT Exam ENT Exam: Mucous Membranes Moist - Neck Exam Neck Exam: Full ROM - Respiratory Exam Respiratory Exam: Decreased Breath Sounds, NORMAL BREATHING PATTERN. absent: Rales, Rhonchi, Wheezes - Cardiovascular Exam Cardiovascular Exam: REGULAR RHYTHM, +S1, +S2 - GI/Abdominal Exam GI & Abdominal Exam: Soft. absent: Guarding, Rigid, Tenderness - Extremities Exam Extremities Exam: Full ROM Additional comments: Wound vac in place + Heel protectors - Back Exam Back Exam: NORMAL INSPECTION - Neurological Exam Neurological Exam: Alert, Awake, Oriented x3 - Psychiatric Exam Psychiatric exam: Normal Affect, Normal Mood - Skin Skin Exam: Normal Color, Warm Assessment and Plan - Assessment and Plan (Free Text) Assessment: 36 yo F PMH DM, HTN, HLD, RLE dvt and LLE ulcer who presents w/ Septic shock 2/ 2 pyelonephritis 2/2 untreated UTI. EMMETT still present, improving on dialysis. Metabolic acidosis resolved. Also found to be anemic, likely due to chronic disease (diabetes). Found to have UTI and LLE ulcer growing MRSA. MRI shows osteomyelitis of L calcaneus and diffuse plantar proximal aspect of L foot. s/p Merrem x6d. Plan: 1. Septic Shock - Shock has resolved, BP stable - Likely 2/2 osteomyelitis vs pyelo vs untreated UTI (urine noted in sorenson container) - Pt clinically improving, shock has resolved off pressors - Patient is currently septic - Spiked fever of 103 this am - Abx: Continue Daptomycin, Start on Merrem - F/U cross cultures, c diff, procal - Will consider removing HD line if bacteremic per ID recs - Leukocytosis still present, but improving - ID on consult, f/u recommendations 2. LLE ulcer - s/p I&D - wound care per podiatry - L Foot cx growing MRSA and corynbacterium - MRI L foot showed osteomyelitis of L calcaneus and diffuse plantar proximal aspect of L foot. - Podiatry consulted, recs appreciated 3. EMMETT on CKD vs worsening CKD - Cr 3.1 today - Went for HD yesterday, tolerated well - Continue Lasix 40mg IV - Renal biopsy for Friday - Nephrology consulted, recs appreciated concerning long-term dialysis - RIJ in place 4. Anemia likely 2/2 chronic dz - s/p 5u pRBC transfused - Hgb 7.0 today, will continue to monitor - likely due to chronic kidney 2/2 uncontrolled DM2 - Continue Feosol - Dr. Weaver consulted- appreciate recs- note reviewed, patient does not want her care at this time as patient has Dr. Granados outpatient, as per note the patient claims she already completed a bone marrow biopsy and was recommended to take iron - kappa/lambda are elevated 5. Hx DM - Levemir 7 units BID - ISS med - accuchecks 6. Peripheral Neuropathy - likely 2/2 to DM - Lyrica 100 TID 7. Cardiomyopathy - ECHO shows EF of 35% - Cardioogy consulted, Dr. Ryan - Coreg 6.25 BID PPX - protonix - no scds due to foot infection, no lovenox due to renal function, no heparin due to decreasing H/H - F/u lower extremity dopplers Disposition: - possible d/c friday pending nephro recs <Agustin Parker B - Last Filed: 11/10/16 17:28> Objective - Vital Signs/Intake and Output Vital Signs (last 24 hours): Temp Pulse Resp BP Pulse Ox 99.1 F 106 H 20 136/84 96 11/10/16 12:00 11/10/16 12:00 11/10/16 12:00 11/10/16 12:00 11/10/16 12:00 Intake and Output: 11/10/16 11/10/16 06:59 18:59 Intake Total 940 Output Total 350 Balance 590 - Medications Medications: Current Medications Acetaminophen (Tylenol 325mg Tab) 650 mg PO Q6H PRN PRN Reason: Pain, moderate (4-7) Last Admin: 11/10/16 08:00 Dose: 650 mg Artificial Tears (Artificial Tears) 0.2 ml OU DAILY PRN PRN Reason: Dry skin Last Admin: 11/07/16 10:25 Dose: 2 drop Ascorbic Acid (Vitamin C 500 Mg Tab) 500 mg PO BID [facility] Last Admin: 11/10/16 10:17 Dose: 500 mg Carvedilol (Coreg) 6.25 mg PO BID [facility] Last Admin: 11/10/16 10:17 Dose: 6.25 mg Collagenase (Santyl) 0 gm TOP DAILY [facility] Last Admin: 11/10/16 10:25 Dose: Not Given Ferrous Sulfate (Feosol Liq) 300 mg PO TID [facility] Last Admin: 11/10/16 13:50 Dose: 300 mg Furosemide (Lasix) 40 mg IVP DAILY [facility] Last Admin: 11/10/16 10:18 Dose: 40 mg Meropenem 250 mg/ Sodium (Chloride) 100 mls @ 100 mls/hr IVPB Q12H [facility] PRN Reason: Protocol Stop: 11/19/16 09:31 Last Admin: 11/10/16 10:19 Dose: 100 mls/hr Insulin Detemir (Levemir) 7 unit SC BID [facility] Last Admin: 11/10/16 10:00 Dose: 7 unit Insulin Human Lispro (Humalog Med) 0 units SC ACHS [facility] PRN Reason: Protocol Last Admin: 11/10/16 16:24 Dose: Not Given Metoclopramide HCl (Reglan) 5 mg IVP ACHS [facility] Last Admin: 11/10/16 16:30 Dose: Not Given Multi-Ingredient Cream (Hydrocerin Cream) 0 ea TOP BID [facility] Last Admin: 11/10/16 13:47 Dose: 1 unit Multivitamins/Minerals (Therapeutic-M Tab) 1 tab PO 0800 [facility] Last Admin: 11/10/16 08:00 Dose: 1 tab Oxychlorosene Sodium (Clorpactin Wcs-90) 2 gm TOP DAILY [facility] Last Admin: 11/10/16 11:07 Dose: Not Given Pantoprazole Sodium (Protonix Ec Tab) 40 mg PO 0600,1600 [facility] Last Admin: 11/10/16 16:29 Dose: 40 mg Pregabalin (Lyrica) 100 mg PO TID [facility] Last Admin: 11/10/16 13:50 Dose: 100 mg Sodium Bicarbonate (Sodium Bicarbonate Tab) 2,600 mg PO QID [facility] Last Admin: 11/10/16 13:50 Dose: 2,600 mg Zinc Sulfate (Zinc Sulfate 220 Mg Cap) 220 mg PO DAILY [facility] Last Admin: 11/10/16 10:17 Dose: 220 mg - Labs Labs: 11/10/16 07:30 11/10/16 07:30 PT 13.3 Seconds (9.9-11.8) H 10/26/16 20:30 INR 1.23 (0.93-1.08) H 10/26/16 20:30 APTT 28.7 Seconds (23.7-30.8) 11/06/16 05:30 Attending/Attestation - Attestation I have personally seen and examined this patient.: Yes I have fully participated in the care of the patient.: Yes I have reviewed all pertinent clinical information, including history, physical exam and plan: Yes Notes (Text): I have seen and examined the patient with the resident. Agree with the above note with the following addition/ exception: Briefly this is 36 year old female with history of IDDM, HTN, dyslipidemia, RLE DVT, wheel chair bound, 2 amputated toes of left leg and chronic LE ulcer who presented with severe sepsis secondary to acute pyelonephritis, osteomyelitis of L foot, Acute on chronic kidney disease and anemia. Today she complains of diarrhea and spiked fever overnight. All cultures were repeated. Meropenem was added to dapto. She still has leukocytosis and anemia. She has a HD catheter in place which probably needs to be replaced or removed. Patient underwent I&D and Left foot wound culture is growing corynebacterium ( contaminant) and MRSA. Continue supportive boot and wound vac. Her blood sugars have been fluctuating. She has been non compliant with carb consistent diet. Her anemia is multifactorial. Patient refused to see dial maker at this time. Patient claims that she had a BM biopsy and she was told that it was normal. Her creatinine is improved today as she had HD yesterday. Discussed with retrimmer. She is scheduled for renal biopsy on Friday. Will discuss with case resolution specialist and will try to set up outpatient HD. Patient is not oliguric. She was also found to have cardiomyopathy and is on Coreg. Long-term prognosis is poor secondary to multiple medical problems and noncompliance with follow- up. PT recommended [facility] vs HWS. Upon discharge patient will follow up with Dr Bunch. Dr Agustin Parker
--- NOTE | 2016-11-10 15:52 | PN ---
DATE: SUBJECTIVE: The patient underwent hemodialysis yesterday. The patient diuresed 400 mL after the IV Lasix yesterday prior to her undergoing hemodialysis. Today, the patient is afebrile. PHYSICAL EXAMINATION: VITAL SIGNS: Temperature 103, heart rate 120, blood pressure 136/86 and respirations 20. LABORATORY DATA: Today's lab, hemoglobin and hematocrit 7 and 22.4, white count 15.8 and platelet count 420,000. Today's BUN and creatinine are 28 and 3.1. Glucose is elevated at 426. ASSESSMENT: 1. Cardiomyopathy. 2. Acute renal failure. The patient did require a third hemodialysis yesterday. 3. Uncontrolled diabetes mellitus. 4. Significant anemia. RECOMMENDATIONS: Continue Coreg at 6.25 mg twice a day and intravenous Lasix at 20 mg intravenously daily. Continue IV meropenem. I will follow up repeat blood cultures done today as well as abdomen and lower extremity ultrasound. Today's chest x-ray revealed mild cardiomegaly with moderate bilateral alveolar infiltrate. Semaj Ryan MD
--- NOTE | 2016-11-11 04:45 | CP.PCM.PN ---
Addendum entered and electronically signed by Ata Ackerman DO 11/11/16 12:58: Update on Assessment and Plan: - consult placed to GI for worsening anemia, positive FOBT, and diarrhea Original Note: <Ata Ackerman - Last Filed: 11/11/16 12:51> Subjective - Date & Time of Evaluation Date of Evaluation: 11/11/16 Time of Evaluation: 10:00 - Subjective Subjective: Subjective: Patient seen and examined at bedside. No acute overnight events. Patient resting comfortably in bed. Patient does not believe she will need penitentiary dialysis and wants to wait to give her kidneys more time to recover. Offers no new complaints at this time. Denies f/c/p/sob/abdominal pain/n/v/diarrhea/ constipation/urinary symptoms. Physical Exam: - Constitutional Appears: NAD - Head Exam Head Exam: ATRAUMATIC, NORMAL INSPECTION, NORMOCEPHALIC - Eye Exam Eye Exam: EOMI, Normal appearance, PERRL Pupil Exam: NORMAL ACCOMODATION, PERRL - ENT Exam ENT Exam: Mucous Membranes Moist, Normal Exam - Neck Exam Neck exam: Positive for: Normal Inspection - Respiratory Exam Respiratory Exam: Clear to Auscultation Bilateral, NORMAL BREATHING PATTERN - Cardiovascular Exam Cardiovascular Exam: REGULAR RHYTHM, +S1, +S2 - GI/Abdominal Exam GI & Abdominal Exam: Normal Bowel Sounds, Soft. absent: Tenderness - Extremities Exam Extremities exam: left foot bandaged - Back Exam Back exam: CVA tenderness (L), CVA tenderness (R) - Neurological Exam Neurological exam: Alert, Oriented x3 - Psychiatric Exam Psychiatric exam: Normal Affect, Normal Mood Assessment: 36yo F PMH DM, HTN, HLD, RLE dvt and LLE ulcer who presents w/ Septic shock 2/2 pyelonephritis 2/2 untreated UTI. EMMETT still present, improving on dialysis. Metabolic acidosis resolved. Also found to be anemic, likely due to chronic disease (diabetes). Found to have UTI and LLE ulcer growing MRSA. MRI shows osteomyelitis of L calcaneus and diffuse plantar proximal aspect of L foot. s/p Merrem x6d. Patient is s/p debridement. Patient given 1 unit of PRBCs today. Plan: Septic Shock - shock has resolved, BP stable - likely 2/2 osteomyelitis vs pyelo vs untreated UTI (urine noted in sorenson container) - pt clinically improving, shock has resolved off pressors - Sepsis criteria still met - Daptomycin - ID consulted, recs appreciated - L foot wound cx growing MRSA and corynebacterium - Ucx growing MRSA - tachycardia resolved- HR in the 90s - leukocytosis still present, but improving 15.4 LLE ulcer - s/p I&D - wound care per podiatry - L Foot cx growing MRSA and corynbacterium - MRI L foot showed osteomyelitis of L calcaneus and diffuse plantar proximal aspect of L foot. - f/u sensitivities - podiatry consulted, recs appreciated EMMETT on CKD vs worsening CKD - Cr currently 6.0 from 5.9 yesterday, Dr. Preston recs- restarted HD 3 days ago for severe metabolic acidosis and volume overload; second HD session completed on friday; no renal biopsy today to assess chronicity and etiology of renal failure due to low HgB. will complete renal bx tomorrow pending rise in HgB - Nephrology consulted, recs appreciated concerning long-term dialysis - NAGMA noted- likely 2/2 diarrhea vs RTA IV - RIJ in place Anemia likely 2/2 chronic dz - s/p 5u pRBC transfused - Hgb 6.7 noted- given one pRBCs today - likely due to chronic kidney 2/2 uncontrolled DM2 - feosol - Dr. Weaver consulted- appreciate recs- note reviewed, patient does not want her care at this time as patient has Dr. Granados outpatient, as per note the patient claims she already completed a bone marrow biopsy and was recommended to take iron - kappa/lambda are elevated Hx DM -glucose levels noted- BG 262- continue with levemir 7 BID - ISS med Peripheral Neuropathy - likely 2/2 to DM - Lyrica 100 TID Cardiomyopathy - ECHO shows EF of 35% - Cardioogy consulted, Dr. Ryan - Coreg 6.25 BID PPX - protonix - no scds due to foot infection, no lovenox due to renal function, no heparin due to decreasing H/H Disposition: - patient moved to remote tele - possible d/c friday pending nephro recs Patient seen, examined, case discussed with, and plan approved by attending physician, Dr Talley. Objective - Vital Signs/Intake and Output Vital Signs (last 24 hours): Temp Pulse Resp BP Pulse Ox 99.1 F 106 H 20 140/93 H 96 11/10/16 18:00 11/10/16 18:00 11/10/16 18:00 11/10/16 18:00 11/10/16 18:00 Intake and Output: 11/10/16 11/11/16 18:59 06:59 Intake Total 420 Output Total 600 Balance -180 - Medications Medications: Current Medications Acetaminophen (Tylenol 325mg Tab) 650 mg PO Q6H PRN PRN Reason: Pain, moderate (4-7) Last Admin: 11/10/16 08:00 Dose: 650 mg Artificial Tears (Artificial Tears) 0.2 ml OU DAILY PRN PRN Reason: Dry skin Last Admin: 11/07/16 10:25 Dose: 2 drop Ascorbic Acid (Vitamin C 500 Mg Tab) 500 mg PO BID [facility] Last Admin: 11/10/16 17:56 Dose: 500 mg Carvedilol (Coreg) 6.25 mg PO BID [facility] Last Admin: 11/10/16 17:55 Dose: 6.25 mg Collagenase (Santyl) 0 gm TOP DAILY [facility] Last Admin: 11/10/16 10:25 Dose: Not Given Ferrous Sulfate (Feosol Liq) 300 mg PO TID [facility] Last Admin: 11/10/16 17:57 Dose: 300 mg Furosemide (Lasix) 40 mg IVP DAILY [facility] Last Admin: 11/10/16 10:18 Dose: 40 mg Meropenem 250 mg/ Sodium (Chloride) 100 mls @ 100 mls/hr IVPB Q12H [facility] PRN Reason: Protocol Stop: 11/19/16 09:31 Last Admin: 11/10/16 21:51 Dose: 100 mls/hr Insulin Detemir (Levemir) 7 unit SC BID [facility] Last Admin: 11/10/16 17:57 Dose: Not Given Insulin Human Lispro (Humalog Med) 0 units SC ACHS [facility] PRN Reason: Protocol Last Admin: 11/10/16 21:51 Dose: Not Given Metoclopramide HCl (Reglan) 5 mg IVP ACHS [facility] Last Admin: 11/10/16 21:52 Dose: Not Given Multi-Ingredient Cream (Hydrocerin Cream) 0 ea TOP BID [facility] Last Admin: 11/10/16 17:57 Dose: 1 unit Multivitamins/Minerals (Therapeutic-M Tab) 1 tab PO 0800 [facility] Last Admin: 11/10/16 08:00 Dose: 1 tab Oxychlorosene Sodium (Clorpactin Wcs-90) 2 gm TOP DAILY [facility] Last Admin: 11/10/16 11:07 Dose: Not Given Pantoprazole Sodium (Protonix Ec Tab) 40 mg PO 0600,1600 [facility] Last Admin: 11/10/16 16:29 Dose: 40 mg Pregabalin (Lyrica) 100 mg PO TID [facility] Last Admin: 11/10/16 17:57 Dose: Not Given Sodium Bicarbonate (Sodium Bicarbonate Tab) 2,600 mg PO QID [facility] Last Admin: 11/10/16 21:52 Dose: 2,600 mg Zinc Sulfate (Zinc Sulfate 220 Mg Cap) 220 mg PO DAILY [facility] Last Admin: 11/10/16 10:17 Dose: 220 mg - Labs Labs: 11/10/16 07:30 11/10/16 07:30 PT 13.3 Seconds (9.9-11.8) H 10/26/16 20:30 INR 1.23 (0.93-1.08) H 10/26/16 20:30 APTT 28.7 Seconds (23.7-30.8) 11/06/16 05:30 <Laquita Talley - Last Filed: 11/12/16 12:21> Objective - Vital Signs/Intake and Output Vital Signs (last 24 hours): Temp Pulse Resp BP Pulse Ox 98.2 F 101 H 20 140/97 H 97 11/11/16 16:56 11/11/16 17:28 11/11/16 16:56 11/11/16 17:28 11/11/16 08:04 Intake and Output: 11/11/16 11/11/16 06:59 18:59 Intake Total 420 1080 Output Total 600 150 Balance -180 930 - Medications Medications: Current Medications Artificial Tears (Artificial Tears) 0.2 ml OU DAILY PRN PRN Reason: Dry skin Last Admin: 11/07/16 10:25 Dose: 2 drop Ascorbic Acid (Vitamin C 500 Mg Tab) 500 mg PO BID [facility] Last Admin: 11/11/16 17:31 Dose: 500 mg Carvedilol (Coreg) 6.25 mg PO BID [facility] Last Admin: 11/11/16 17:28 Dose: 6.25 mg Collagenase (Santyl) 0 gm TOP DAILY [facility] Last Admin: 11/11/16 10:35 Dose: Not Given Ferrous Sulfate (Feosol Liq) 300 mg PO TID [facility] Last Admin: 11/11/16 17:29 Dose: 300 mg Furosemide (Lasix) 40 mg IVP DAILY [facility] Last Admin: 11/11/16 10:31 Dose: 40 mg Meropenem 250 mg/ Sodium (Chloride) 100 mls @ 100 mls/hr IVPB Q12H [facility] PRN Reason: Protocol Stop: 11/19/16 09:31 Last Admin: 11/11/16 10:33 Dose: 100 mls/hr Daptomycin 420 mg/ Sodium (Chloride) 100 mls @ 200 mls/hr IV QOTHERDAY [facility] Stop: 11/16/16 11:16 Last Admin: 11/11/16 17:52 Dose: 200 mls/hr Insulin Detemir (Levemir) 7 unit SC BID [facility] Last Admin: 11/11/16 17:29 Dose: 7 unit Insulin Human Lispro (Humalog Med) 0 units SC ACHS [facility] PRN Reason: Protocol Last Admin: 11/11/16 17:23 Dose: 10 units Metoclopramide HCl (Reglan) 5 mg IVP ACHS [facility] Last Admin: 11/11/16 17:30 Dose: Not Given Multi-Ingredient Cream (Hydrocerin Cream) 0 ea TOP BID [facility] Last Admin: 11/11/16 17:29 Dose: 1 unit Multivitamins/Minerals (Therapeutic-M Tab) 1 tab PO 0800 [facility] Last Admin: 11/11/16 10:36 Dose: 1 tab Oxychlorosene Sodium (Clorpactin Wcs-90) 2 gm TOP DAILY [facility] Last Admin: 11/10/16 11:07 Dose: Not Given Pantoprazole Sodium (Protonix Ec Tab) 40 mg PO 0600,1600 [facility] Last Admin: 11/11/16 17:30 Dose: 40 mg Pregabalin (Lyrica) 100 mg PO TID [facility] Last Admin: 11/11/16 17:29 Dose: 100 mg Sodium Bicarbonate (Sodium Bicarbonate Tab) 2,600 mg PO QID [facility] Last Admin: 11/11/16 17:30 Dose: 2,600 mg Zinc Sulfate (Zinc Sulfate 220 Mg Cap) 220 mg PO DAILY [facility] Last Admin: 11/11/16 10:37 Dose: 220 mg - Labs Labs: 10/02/17 07:33 11/11/16 07:33 PT 13.2 Seconds (9.9-11.8) H 11/11/16 05:40 INR 1.22 (0.93-1.08) H 11/11/16 05:40 APTT 32.0 Seconds (23.7-30.8) H 11/11/16 05:40 Attending/Attestation - Attestation I have personally seen and examined this patient.: Yes I have fully participated in the care of the patient.: Yes I have reviewed all pertinent clinical information, including history, physical exam and plan: Yes Notes (Text): 11/11/16 18:31 attending note; Patient seen and examined with the resident. Patient is a 36 year old female with history of IDDM, HTN, dyslipidemia, wheel chair bound, 2 amputated toes of left leg and chronic LE ulcer who presented with severe sepsis secondary to acute pyelonephritis, osteomyelitis of L foot, Acute on chronic kidney disease and anemia. had MAXIMUM TEMPERATURE of 102 yesterday. Repeat Blood culture, urine culture is negative. Meropenem was added to daptmycin. case discussed with ID in detail. Need s 6 weeks of IV antibiotics for left calcaneal osteomyelitis. continue wound vac. She still has leukocytosis and anemia. Patient underwent I&D and Left foot wound culture is growing corynebacterium ( contaminant) and MRSA. Continue supportive boot and wound vac. Her blood sugars have been fluctuating. She has been non compliant with carb consistent diet. Her anemia is multifactorial. 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 Patient claims that she had a BM biopsy and she was told that it was normal. We' ll try to get outpatient results. Transfuse 1 unit PRBC today. Discussed with speech and hearing director. Patient needs long-term dialysis. Patient is refusing penitentiary HD. cardiomyopathy: on Coreg. Long-term prognosis is poor secondary to multiple medical problems and noncompliance with follow-up. PT recommended [facility] vs HWS. Upon discharge patient will follow up with Dr Bunch. 11/12/16 12:21
--- NOTE | 2016-11-11 05:46 | CP.PCM.PN ---
Subjective - Date & Time of Evaluation Date of Evaluation: 11/10/16 Time of Evaluation: 12:00 - Subjective Subjective: Patient with DM, CKD, admitted with SIRS/Sepsis, acute renal failure, osteomyelitis of L foot; Today spiked high grade fever; otherwise reports feeling well; Objective - Vital Signs/Intake and Output Vital Signs (last 24 hours): Temp Pulse Resp BP Pulse Ox 99.1 F 106 H 20 140/93 H 96 11/10/16 18:00 11/10/16 18:00 11/10/16 18:00 11/10/16 18:00 11/10/16 18:00 Intake and Output: 11/10/16 11/11/16 18:59 06:59 Intake Total 420 Output Total 600 Balance -180 - Medications Medications: Current Medications Artificial Tears (Artificial Tears) 0.2 ml OU DAILY PRN PRN Reason: Dry skin Last Admin: 11/07/16 10:25 Dose: 2 drop Ascorbic Acid (Vitamin C 500 Mg Tab) 500 mg PO BID [facility] Last Admin: 11/10/16 17:56 Dose: 500 mg Carvedilol (Coreg) 6.25 mg PO BID [facility] Last Admin: 11/10/16 17:55 Dose: 6.25 mg Collagenase (Santyl) 0 gm TOP DAILY [facility] Last Admin: 11/10/16 10:25 Dose: Not Given Ferrous Sulfate (Feosol Liq) 300 mg PO TID [facility] Last Admin: 11/10/16 17:57 Dose: 300 mg Furosemide (Lasix) 40 mg IVP DAILY [facility] Last Admin: 11/10/16 10:18 Dose: 40 mg Meropenem 250 mg/ Sodium (Chloride) 100 mls @ 100 mls/hr IVPB Q12H [facility] PRN Reason: Protocol Stop: 11/19/16 09:31 Last Admin: 11/10/16 21:51 Dose: 100 mls/hr Insulin Detemir (Levemir) 7 unit SC BID [facility] Last Admin: 11/10/16 17:57 Dose: Not Given Insulin Human Lispro (Humalog Med) 0 units SC ACHS [facility] PRN Reason: Protocol Last Admin: 11/10/16 21:51 Dose: Not Given Metoclopramide HCl (Reglan) 5 mg IVP ACHS [facility] Last Admin: 11/10/16 21:52 Dose: Not Given Multi-Ingredient Cream (Hydrocerin Cream) 0 ea TOP BID [facility] Last Admin: 11/10/16 17:57 Dose: 1 unit Multivitamins/Minerals (Therapeutic-M Tab) 1 tab PO 0800 [facility] Last Admin: 11/10/16 08:00 Dose: 1 tab Oxychlorosene Sodium (Clorpactin Wcs-90) 2 gm TOP DAILY [facility] Last Admin: 11/10/16 11:07 Dose: Not Given Pantoprazole Sodium (Protonix Ec Tab) 40 mg PO 0600,1600 [facility] Last Admin: 11/10/16 16:29 Dose: 40 mg Pregabalin (Lyrica) 100 mg PO TID [facility] Last Admin: 11/10/16 17:57 Dose: Not Given Sodium Bicarbonate (Sodium Bicarbonate Tab) 2,600 mg PO QID [facility] Last Admin: 11/10/16 21:52 Dose: 2,600 mg Zinc Sulfate (Zinc Sulfate 220 Mg Cap) 220 mg PO DAILY [facility] Last Admin: 11/10/16 10:17 Dose: 220 mg - Labs Labs: 11/10/16 07:30 11/10/16 07:30 PT 13.3 Seconds (9.9-11.8) H 10/26/16 20:30 INR 1.23 (0.93-1.08) H 10/26/16 20:30 APTT 28.7 Seconds (23.7-30.8) 11/06/16 05:30 - Constitutional Appears: Non-toxic, No Acute Distress - Head Exam Head Exam: NORMAL INSPECTION - Eye Exam Eye Exam: Normal appearance - ENT Exam ENT Exam: Mucous Membranes Moist - Respiratory Exam Additional comments: mild basal rales - Cardiovascular Exam Cardiovascular Exam: REGULAR RHYTHM, +S1, +S2 - GI/Abdominal Exam GI & Abdominal Exam: Soft. absent: Distended, Tenderness - Extremities Exam Additional comments: no leg edema; - Neurological Exam Neurological Exam: Alert, Awake - Psychiatric Exam Psychiatric exam: Normal Affect, Normal Mood - Skin Skin Exam: Warm. absent: Cyanosis Assessment and Plan (1) Acute renal failure Assessment & Plan: EMMETT on CKD; restarted HD 2 days ago for severe metabolic acidosis and volume overload; 2nd straight HD session yesterday; no need for HD today; primary team told to start process for outpatient HD center (as acute renal failure designation, not yet ESRD); -planning for renal biopsy tomorrow to assess chronicity and etiology of renal failure; Status: Acute (2) CKD (chronic kidney disease) Assessment & Plan: Degreee of CKD still unclear at this point; biopsy may shed some light; will also start 24 hr urine for creatinine clearance and proteinuria; Status: Chronic (3) Anemia Assessment & Plan: Hgb trending downward, no urgency for transfusion, already started on aranesp; monitor; Status: Acute (4) Metabolic acidosis Assessment & Plan: On sodium bicarb 2600 mg qid, continue; likely will not be sufficient; will re- assess off HD; Status: Acute (5) Sepsis Assessment & Plan: New fever; if persists, need to pull HD catheter; meropenem dosed for HD; f/u cultures and ID recs; Status: Acute
--- NOTE | 2016-11-11 05:54 | CP.PCM.PN ---
Subjective - Date & Time of Evaluation Date of Evaluation: 11/09/16 Time of Evaluation: 12:00 - Subjective Subjective: Patient reports feeling well; denies shortness of breath; Objective - Vital Signs/Intake and Output Vital Signs (last 24 hours): Temp Pulse Resp BP Pulse Ox 99.1 F 106 H 20 140/93 H 96 11/10/16 18:00 11/10/16 18:00 11/10/16 18:00 11/10/16 18:00 11/10/16 18:00 Intake and Output: 11/10/16 11/11/16 18:59 06:59 Intake Total 420 Output Total 600 Balance -180 - Medications Medications: Current Medications Artificial Tears (Artificial Tears) 0.2 ml OU DAILY PRN PRN Reason: Dry skin Last Admin: 11/07/16 10:25 Dose: 2 drop Ascorbic Acid (Vitamin C 500 Mg Tab) 500 mg PO BID [facility] Last Admin: 11/10/16 17:56 Dose: 500 mg Carvedilol (Coreg) 6.25 mg PO BID [facility] Last Admin: 11/10/16 17:55 Dose: 6.25 mg Collagenase (Santyl) 0 gm TOP DAILY [facility] Last Admin: 11/10/16 10:25 Dose: Not Given Ferrous Sulfate (Feosol Liq) 300 mg PO TID [facility] Last Admin: 11/10/16 17:57 Dose: 300 mg Furosemide (Lasix) 40 mg IVP DAILY [facility] Last Admin: 11/10/16 10:18 Dose: 40 mg Meropenem 250 mg/ Sodium (Chloride) 100 mls @ 100 mls/hr IVPB Q12H [facility] PRN Reason: Protocol Stop: 11/19/16 09:31 Last Admin: 11/10/16 21:51 Dose: 100 mls/hr Insulin Detemir (Levemir) 7 unit SC BID [facility] Last Admin: 11/10/16 17:57 Dose: Not Given Insulin Human Lispro (Humalog Med) 0 units SC ACHS [facility] PRN Reason: Protocol Last Admin: 11/10/16 21:51 Dose: Not Given Metoclopramide HCl (Reglan) 5 mg IVP ACHS [facility] Last Admin: 11/10/16 21:52 Dose: Not Given Multi-Ingredient Cream (Hydrocerin Cream) 0 ea TOP BID [facility] Last Admin: 11/10/16 17:57 Dose: 1 unit Multivitamins/Minerals (Therapeutic-M Tab) 1 tab PO 0800 [facility] Last Admin: 11/10/16 08:00 Dose: 1 tab Oxychlorosene Sodium (Clorpactin Wcs-90) 2 gm TOP DAILY [facility] Last Admin: 11/10/16 11:07 Dose: Not Given Pantoprazole Sodium (Protonix Ec Tab) 40 mg PO 0600,1600 [facility] Last Admin: 11/10/16 16:29 Dose: 40 mg Pregabalin (Lyrica) 100 mg PO TID [facility] Last Admin: 11/10/16 17:57 Dose: Not Given Sodium Bicarbonate (Sodium Bicarbonate Tab) 2,600 mg PO QID [facility] Last Admin: 11/10/16 21:52 Dose: 2,600 mg Zinc Sulfate (Zinc Sulfate 220 Mg Cap) 220 mg PO DAILY [facility] Last Admin: 11/10/16 10:17 Dose: 220 mg - Labs Labs: 11/10/16 07:30 11/10/16 07:30 PT 13.3 Seconds (9.9-11.8) H 10/26/16 20:30 INR 1.23 (0.93-1.08) H 10/26/16 20:30 APTT 28.7 Seconds (23.7-30.8) 11/06/16 05:30 - Constitutional Appears: Non-toxic, No Acute Distress - Head Exam Head Exam: NORMAL INSPECTION - Eye Exam Eye Exam: Normal appearance - ENT Exam ENT Exam: Mucous Membranes Moist - Respiratory Exam Additional comments: rales present; tachypneic; - Cardiovascular Exam Cardiovascular Exam: RRR, +S1, +S2 - GI/Abdominal Exam GI & Abdominal Exam: Soft. absent: Distended, Tenderness - Extremities Exam Additional comments: no leg edema; - Neurological Exam Neurological Exam: Alert, Awake - Psychiatric Exam Psychiatric exam: Normal Affect, Normal Mood - Skin Skin Exam: Warm. absent: Cyanosis Assessment and Plan (1) Acute renal failure Assessment & Plan: EMMETT on CKD; HD restarted yesterday for severe metabolic acidosis and volume overload; full HD session today; Status: Acute (2) CKD (chronic kidney disease) Assessment & Plan: Baseline serum creat unclear; May benefit from biopsy; Status: Chronic (3) Anemia Assessment & Plan: On aranesp, monitor; Status: Acute (4) Metabolic acidosis Assessment & Plan: Corrected with HD; will continue sodium bicarb 2600 mg qid and observe off HD; Status: Acute (5) Sepsis Assessment & Plan: On daptomycin every other day, needs redosing after HD; Status: Acute
[2016-11-11] MEDS: Pantoprazole 40 mg EC Tab PO SCH ×2 (06:15→17:30)
[2016-11-11 07:39] LABS: BASO # 0.04 K/mm3 (0.0-2.0); BASO % 0.3 % (0.0-3.0); EOS # 0.3 (0.0-0.7); EOS % 1.8 % (1.5-5.0); GRAN # 12.71 (1.4-6.5); GRAN % 82.4 % (50.0-68.0); LYMPH # 1.6 (1.2-3.4); LYMPH % 10.1 % (22.0-35.0); MEAN CELL VOLUME 90.6 fl (80.0-105.0); MEAN CORPUSCULAR HEMOGLOBIN 28.5 pg (25.0-35.0); MEAN CORPUSCULAR HGB CONC 31.5 g/dl (31.0-37.0); MEAN PLATELET VOLUME 8.8 fl (7.0-11.0); MONO # 0.8 (0.1-0.6); MONO % 5.4 % (1.0-6.0); RED CELL DISTRIBUTION WIDTH 16.6 % (11.5-14.5); WHITE BLOOD COUNT 15.4 10^3/ul (4.5-11.0)
[2016-11-11 07:59] LABS: ALB/GLOB RATIO 0.6 (1.1-1.8); BILIRUBIN,TOTAL 0.5 mg/dL (0.2-1.3); MAGNESIUM 1.8 mg/dL (1.7-2.2); PHOSPHOROUS 3.1 mg/dL (2.5-4.5); POTASSIUM 4.1 mmol/L (3.6-5.0); TOTAL PROTEIN 7.7 g/dL (5.8-8.3)
[2016-11-11 08:00] LABS: HEMATOCRIT 21.3 % (36.0-48.0)
[2016-11-11 09:53] LABS: INR 1.22 (0.93-1.08)
[2016-11-11] MEDS: Ferrous Sulfate 300 mg/5 mL Liq UD PO SCH ×3 (10:30→17:29)
[2016-11-11] MEDS: Insulin Lispro (humaLOG) MEDIUM Coverage SC SCH ×4 (10:30→22:17)
[2016-11-11] MEDS: Hydrocerin(120 gm) TOP SCH ×2 (10:31→17:29)
[2016-11-11] MEDS: Insulin Detemir 100 units/ml Vial (Levemir) SC SCH ×2 (10:32→17:29)
[2016-11-11] MEDS: Collagenase 250 Units/gm Ointment(30 gm) TOP SCH (10:35)
[2016-11-11] MEDS: Multivitamin With Minerals Tab PO SCH (10:36)
[2016-11-11] MEDS ORDERED: DAPTOmycin 500 mg Inj (Cubicin) IV SCH (11:15)
--- NOTE | 2016-11-11 11:24 | CP.PCM.PN ---
<Pedrito Lobo - Last Filed: 11/11/16 11:21> Subjective - Date & Time of Evaluation Date of Evaluation: 11/11/16 Time of Evaluation: 11:21 - Subjective Subjective: Podiatry Progress Note - Dr. Craven 36 year old female patient seen at bedside POD#11 left foot I&D (DOS: 10/31/16) with mother seen at bedside. Patient is seen resting comfortably in bed, AAOx3 and in NAD. Patient is seen at bedside not wearing boots at all times while in bed. Patient's mother reports the boots got wet and she is unable to wear them. Patient denies N/V/C/SOB/calf pain. No other pedal complaints at this time. Objective - Vital Signs/Intake and Output Vital Signs (last 24 hours): Temp Pulse Resp BP Pulse Ox 98.3 F 111 H 18 120/72 97 11/11/16 08:04 11/11/16 10:29 11/11/16 08:04 11/11/16 10:31 11/11/16 08:04 Intake and Output: 11/11/16 11/11/16 06:59 18:59 Intake Total 420 Output Total 600 Balance -180 - Medications Medications: Current Medications Artificial Tears (Artificial Tears) 0.2 ml OU DAILY PRN PRN Reason: Dry skin Last Admin: 11/07/16 10:25 Dose: 2 drop Ascorbic Acid (Vitamin C 500 Mg Tab) 500 mg PO BID [facility] Last Admin: 11/11/16 10:37 Dose: 500 mg Carvedilol (Coreg) 6.25 mg PO BID [facility] Last Admin: 11/11/16 10:29 Dose: 6.25 mg Collagenase (Santyl) 0 gm TOP DAILY [facility] Last Admin: 11/11/16 10:35 Dose: Not Given Ferrous Sulfate (Feosol Liq) 300 mg PO TID [facility] Last Admin: 11/11/16 10:30 Dose: 300 mg Furosemide (Lasix) 40 mg IVP DAILY [facility] Last Admin: 11/11/16 10:31 Dose: 40 mg Meropenem 250 mg/ Sodium (Chloride) 100 mls @ 100 mls/hr IVPB Q12H [facility] PRN Reason: Protocol Stop: 11/19/16 09:31 Last Admin: 11/11/16 10:33 Dose: 100 mls/hr Daptomycin 420 mg/ Sodium (Chloride) 100 mls @ 200 mls/hr IV QOTHERDAY [facility] Stop: 11/16/16 11:16 Insulin Detemir (Levemir) 7 unit SC BID [facility] Last Admin: 11/11/16 10:32 Dose: 7 unit Insulin Human Lispro (Humalog Med) 0 units SC ACHS [facility] PRN Reason: Protocol Last Admin: 11/11/16 10:30 Dose: 5 units Metoclopramide HCl (Reglan) 5 mg IVP ACHS [facility] Last Admin: 11/11/16 10:34 Dose: 5 mg Multi-Ingredient Cream (Hydrocerin Cream) 0 ea TOP BID [facility] Last Admin: 11/11/16 10:31 Dose: 1 unit Multivitamins/Minerals (Therapeutic-M Tab) 1 tab PO 0800 [facility] Last Admin: 11/11/16 10:36 Dose: 1 tab Oxychlorosene Sodium (Clorpactin Wcs-90) 2 gm TOP DAILY [facility] Last Admin: 11/10/16 11:07 Dose: Not Given Pantoprazole Sodium (Protonix Ec Tab) 40 mg PO 0600,1600 [facility] Last Admin: 11/11/16 06:15 Dose: 40 mg Pregabalin (Lyrica) 100 mg PO TID [facility] Last Admin: 11/11/16 10:33 Dose: 100 mg Sodium Bicarbonate (Sodium Bicarbonate Tab) 2,600 mg PO QID [facility] Last Admin: 11/11/16 10:35 Dose: 2,600 mg Zinc Sulfate (Zinc Sulfate 220 Mg Cap) 220 mg PO DAILY [facility] Last Admin: 11/11/16 10:37 Dose: 220 mg - Labs Labs: 11/11/16 07:33 11/11/16 07:33 PT 13.2 Seconds (9.9-11.8) H 11/11/16 05:40 INR 1.22 (0.93-1.08) H 11/11/16 05:40 APTT 32.0 Seconds (23.7-30.8) H 11/11/16 05:40 - Constitutional Appears: Well, Non-toxic - Extremities Exam Additional comments: WoundVAC to left foot appears clean/dry/intact with no leakage detected or strikethrough noted. Approximately 110 mL drainage seen in canister (100mL drainage in canister on 11/10/16) Temperature gradient WNL, GUIDANCE CONSULTANT <4 seconds, No edema noted to the left foot. - Neurological Exam Neurological Exam: Alert, Awake, Oriented x3 - Psychiatric Exam Psychiatric exam: Normal Affect, Normal Mood Assessment and Plan - Assessment and Plan (Free Text) Assessment: 36 year old female 36 year old female PMHx IDDM, renal failure, sepsis, metabolic acidosis, UTI, CKD, anemia 1) POD#10 left foot incision and drainage with wound debridement; 2) Stage 1 pressure ulcer right heel Plan: Patient seen and evaluated at bedside Discussed with attending, Dr. Craven Chart, vitals, labs reviewed - afebrile, leukocytosis WBC=15.4 Left foot wound culture = MRSA Urine culture - yeast WoundVAC changed Friday on 11/10/16. Will change WoundVac Friday on 11/13/16 Continue with Santyl to plantar heel wounds, apply with each VAC change Per ID, continue renally-adjusted Daptomycin; patient will need 6 weeks of abx Heel offloading shoe is to be worn on left foot only when weightbearing. Discussed with patient and nursing offloading boots should be on at all times while in bed. Cleaned offloading boot and applied offloading boot to lower extremity. Stressed the importance to patient and mother for proper wound healing. Patient to wear multipodus boots at all times while in bed to prevent progression of pressure ulcer formation R heel. Continue Eucerin cream bilateral LE BID Prognosis for limb salvage poor At this point, no further debridements are considered for left foot; will be seen in followup Podiatry will continue to follow patient while in house <Logan Craven - Last Filed: 11/12/16 09:52> Objective - Vital Signs/Intake and Output Vital Signs (last 24 hours): Temp Pulse Resp BP Pulse Ox 98.2 F 98 H 20 140/97 H 98 11/11/16 18:00 11/12/16 05:58 11/11/16 18:00 11/11/16 18:00 11/11/16 18:00 Intake and Output: 11/12/16 11/12/16 06:59 18:59 Intake Total 1020 840 Output Total 250 100 Balance 770 740 - Medications Medications: Current Medications Artificial Tears (Artificial Tears) 0.2 ml OU DAILY PRN PRN Reason: Dry skin Last Admin: 11/07/16 10:25 Dose: 2 drop Ascorbic Acid (Vitamin C 500 Mg Tab) 500 mg PO BID [facility] Last Admin: 11/11/16 17:31 Dose: 500 mg Carvedilol (Coreg) 6.25 mg PO BID [facility] Last Admin: 11/11/16 17:28 Dose: 6.25 mg Collagenase (Santyl) 0 gm TOP DAILY [facility] Last Admin: 11/11/16 10:35 Dose: Not Given Ferrous Sulfate (Feosol Liq) 300 mg PO TID [facility] Last Admin: 11/11/16 17:29 Dose: 300 mg Furosemide (Lasix) 40 mg IVP DAILY [facility] Last Admin: 11/11/16 10:31 Dose: 40 mg Meropenem 250 mg/ Sodium (Chloride) 100 mls @ 100 mls/hr IVPB Q12H [facility] PRN Reason: Protocol Stop: 11/19/16 09:31 Last Admin: 11/11/16 22:19 Dose: 100 mls/hr Daptomycin 420 mg/ Sodium (Chloride) 100 mls @ 200 mls/hr IV QOTHERDAY [facility] Stop: 11/16/16 11:16 Last Admin: 11/11/16 17:52 Dose: 200 mls/hr Insulin Detemir (Levemir) 7 unit SC BID [facility] Last Admin: 11/11/16 17:29 Dose: 7 unit Insulin Human Lispro (Humalog Med) 0 units SC ACHS [facility] PRN Reason: Protocol Last Admin: 11/12/16 08:41 Dose: 5 units Metoclopramide HCl (Reglan) 5 mg IVP ACHS [facility] Last Admin: 11/12/16 08:50 Dose: Not Given Multi-Ingredient Cream (Hydrocerin Cream) 0 ea TOP BID [facility] Last Admin: 11/11/16 17:29 Dose: 1 unit Multivitamins/Minerals (Therapeutic-M Tab) 1 tab PO 0800 [facility] Last Admin: 11/11/16 10:36 Dose: 1 tab Oxychlorosene Sodium (Clorpactin Wcs-90) 2 gm TOP DAILY [facility] Last Admin: 11/10/16 11:07 Dose: Not Given Pantoprazole Sodium (Protonix Ec Tab) 40 mg PO 0600,1600 [facility] Last Admin: 11/12/16 05:54 Dose: 40 mg Pregabalin (Lyrica) 100 mg PO TID [facility] Last Admin: 11/11/16 17:29 Dose: 100 mg Sodium Bicarbonate (Sodium Bicarbonate Tab) 2,600 mg PO QID [facility] Last Admin: 11/11/16 22:20 Dose: 2,600 mg Zinc Sulfate (Zinc Sulfate 220 Mg Cap) 220 mg PO DAILY [facility] Last Admin: 11/11/16 10:37 Dose: 220 mg - Labs Labs: 11/12/16 06:30 11/12/16 06:30 PT 13.2 Seconds (9.9-11.8) H 11/11/16 05:40 INR 1.22 (0.93-1.08) H 11/11/16 05:40 APTT 32.0 Seconds (23.7-30.8) H 11/11/16 05:40 Attending/Attestation - Attestation I have personally seen and examined this patient.: Yes I have fully participated in the care of the patient.: Yes I have reviewed all pertinent clinical information, including history, physical exam and plan: Yes
--- NOTE | 2016-11-11 14:06 | CP.PCM.PN ---
Subjective - Date & Time of Evaluation Date of Evaluation: 11/11/16 Time of Evaluation: 11:20 - Subjective Subjective: Patient has no fevers, not in distress, afebrile. No diarrhea currently. Objective - Vital Signs/Intake and Output Vital Signs (last 24 hours): Temp Pulse Resp BP Pulse Ox 98.3 F 111 H 18 120/72 97 11/11/16 08:04 11/11/16 10:29 11/11/16 08:04 11/11/16 10:31 11/11/16 08:04 Intake and Output: 11/11/16 11/11/16 06:59 18:59 Intake Total 420 Output Total 600 Balance -180 - Medications Medications: Current Medications Artificial Tears (Artificial Tears) 0.2 ml OU DAILY PRN PRN Reason: Dry skin Last Admin: 11/07/16 10:25 Dose: 2 drop Ascorbic Acid (Vitamin C 500 Mg Tab) 500 mg PO BID [facility] Last Admin: 11/11/16 10:37 Dose: 500 mg Carvedilol (Coreg) 6.25 mg PO BID [facility] Last Admin: 11/11/16 10:29 Dose: 6.25 mg Collagenase (Santyl) 0 gm TOP DAILY [facility] Last Admin: 11/11/16 10:35 Dose: Not Given Daptomycin (Cubicin) 420 mg 6 mg/kg (420 mg) IV QOTHERDAY [facility] PRN Reason: Protocol Stop: 11/16/16 11:16 Ferrous Sulfate (Feosol Liq) 300 mg PO TID [facility] Last Admin: 11/11/16 10:30 Dose: 300 mg Furosemide (Lasix) 40 mg IVP DAILY [facility] Last Admin: 11/11/16 10:31 Dose: 40 mg Meropenem 250 mg/ Sodium (Chloride) 100 mls @ 100 mls/hr IVPB Q12H [facility] PRN Reason: Protocol Stop: 11/19/16 09:31 Last Admin: 11/11/16 10:33 Dose: 100 mls/hr Insulin Detemir (Levemir) 7 unit SC BID [facility] Last Admin: 11/11/16 10:32 Dose: 7 unit Insulin Human Lispro (Humalog Med) 0 units SC ACHS [facility] PRN Reason: Protocol Last Admin: 11/11/16 10:30 Dose: 5 units Metoclopramide HCl (Reglan) 5 mg IVP ACHS [facility] Last Admin: 11/11/16 10:34 Dose: 5 mg Multi-Ingredient Cream (Hydrocerin Cream) 0 ea TOP BID [facility] Last Admin: 11/11/16 10:31 Dose: 1 unit Multivitamins/Minerals (Therapeutic-M Tab) 1 tab PO 0800 [facility] Last Admin: 11/11/16 10:36 Dose: 1 tab Oxychlorosene Sodium (Clorpactin Wcs-90) 2 gm TOP DAILY [facility] Last Admin: 11/10/16 11:07 Dose: Not Given Pantoprazole Sodium (Protonix Ec Tab) 40 mg PO 0600,1600 [facility] Last Admin: 11/11/16 06:15 Dose: 40 mg Pregabalin (Lyrica) 100 mg PO TID [facility] Last Admin: 11/11/16 10:33 Dose: 100 mg Sodium Bicarbonate (Sodium Bicarbonate Tab) 2,600 mg PO QID [facility] Last Admin: 11/11/16 10:35 Dose: 2,600 mg Zinc Sulfate (Zinc Sulfate 220 Mg Cap) 220 mg PO DAILY [facility] Last Admin: 11/11/16 10:37 Dose: 220 mg - Labs Labs: 11/11/16 07:33 11/11/16 07:33 PT 13.2 Seconds (9.9-11.8) H 11/11/16 05:40 INR 1.22 (0.93-1.08) H 11/11/16 05:40 APTT 32.0 Seconds (23.7-30.8) H 11/11/16 05:40 - Constitutional Appears: Non-toxic, No Acute Distress - Head Exam Head Exam: NORMAL INSPECTION - ENT Exam ENT Exam: Mucous Membranes Moist - Neck Exam Neck Exam: absent: Meningismus - Respiratory Exam Respiratory Exam: Decreased Breath Sounds - Cardiovascular Exam Cardiovascular Exam: +S1, +S2 - GI/Abdominal Exam GI & Abdominal Exam: Soft. absent: Tenderness - Extremities Exam Additional comments: left leg with dressings in place Assessment and Plan - Assessment and Plan (Free Text) Plan: Assessment Severe sepsis with acute renal failure due to acute pyelonephritis, with MRSA in the urine as well as left foot wound infection/abscess with MRSA, MRI showing osteomyelitis, S/P I and D POD #11; new onset SIRS, R/O new onset sepsis DM with diabetic neuropathy HTN history of right DVT bilateral foot ulcers Plan continue renally-adjusted IV Daptomycin and Merrem (day 2); repeat blood cx and urine negative are negative x 1 day - follow up final blood cx results; PCT is 0.52, CXR shows decreased opacity from previous CXR MRI of left foot showing osteomyelitis - will need 6 weeks of antibiotics 2D echo does not show vegetations will need weekly ESR, CRP, CBC, CMP, CPK levels while on antibiotics; most recent CPK is <20 (2016)
--- NOTE | 2016-11-11 18:15 | PN ---
SUBJECTIVE: Case was discussed today with Dr. Preston as the patient's mother was not allowing us in the room for quite sometime. PHYSICAL EXAMINATION VITAL SIGNS: Blood pressure 112/71, heart rate 111, and temperature 99.7. LABORATORY DATA: Today's hemoglobin and hematocrit 6.7 and 21.3, white count 15,4, and platelet count 358,000. Today's BUN and creatinine 43 and 3.9. Potassium is within normal limits, glucose 262. Lower extremity ultrasound, no sonographic evidence of DVT in the visualized segments. Abdominal ultrasound, no evidence of biliary obstruction. Diffuse increase renal cortical echogenicity bilaterally. Chest x-ray report from yesterday, decreased bilateral ill-defined opacity compared to prior examination. ASSESSMENT: 1. Congestive heart failure. 2. Acute renal failure. 3. Status post incision and drainage of left foot infection. 4. Anemia. 5. Uncontrolled diabetes mellitus. CONDITIONS: Case was discussed with Dr. Preston on the floor. The patient will be maintained on IV meropenem, ferrous sulphate, Coreg, and IV Lasix. No plans for immediate dialysis for now. Semaj Ryan MD
[2016-11-12] MEDS: Pantoprazole 40 mg EC Tab PO SCH ×2 (05:54→18:53)
--- NOTE | 2016-11-12 06:15 | CP.PCM.PN ---
Subjective - Date & Time of Evaluation Date of Evaluation: 11/11/16 Time of Evaluation: 20:00 - Subjective Subjective: Patient denies any shortness of breath; no complaints; Objective - Vital Signs/Intake and Output Vital Signs (last 24 hours): Temp Pulse Resp BP Pulse Ox 98.2 F 98 H 20 140/97 H 98 11/11/16 18:00 11/12/16 05:58 11/11/16 18:00 11/11/16 18:00 11/11/16 18:00 Intake and Output: 11/11/16 11/12/16 18:59 06:59 Intake Total 1080 1020 Output Total 150 250 Balance 930 770 - Medications Medications: Current Medications Artificial Tears (Artificial Tears) 0.2 ml OU DAILY PRN PRN Reason: Dry skin Last Admin: 11/07/16 10:25 Dose: 2 drop Ascorbic Acid (Vitamin C 500 Mg Tab) 500 mg PO BID [facility] Last Admin: 11/11/16 17:31 Dose: 500 mg Carvedilol (Coreg) 6.25 mg PO BID [facility] Last Admin: 11/11/16 17:28 Dose: 6.25 mg Collagenase (Santyl) 0 gm TOP DAILY [facility] Last Admin: 11/11/16 10:35 Dose: Not Given Ferrous Sulfate (Feosol Liq) 300 mg PO TID [facility] Last Admin: 11/11/16 17:29 Dose: 300 mg Furosemide (Lasix) 40 mg IVP DAILY [facility] Last Admin: 11/11/16 10:31 Dose: 40 mg Meropenem 250 mg/ Sodium (Chloride) 100 mls @ 100 mls/hr IVPB Q12H [facility] PRN Reason: Protocol Stop: 11/19/16 09:31 Last Admin: 11/11/16 22:19 Dose: 100 mls/hr Daptomycin 420 mg/ Sodium (Chloride) 100 mls @ 200 mls/hr IV QOTHERDAY [facility] Stop: 11/16/16 11:16 Last Admin: 11/11/16 17:52 Dose: 200 mls/hr Insulin Detemir (Levemir) 7 unit SC BID [facility] Last Admin: 11/11/16 17:29 Dose: 7 unit Insulin Human Lispro (Humalog Med) 0 units SC ACHS [facility] PRN Reason: Protocol Last Admin: 11/11/16 22:17 Dose: Not Given Metoclopramide HCl (Reglan) 5 mg IVP ACHS [facility] Last Admin: 11/11/16 22:19 Dose: Not Given Multi-Ingredient Cream (Hydrocerin Cream) 0 ea TOP BID [facility] Last Admin: 11/11/16 17:29 Dose: 1 unit Multivitamins/Minerals (Therapeutic-M Tab) 1 tab PO 0800 [facility] Last Admin: 11/11/16 10:36 Dose: 1 tab Oxychlorosene Sodium (Clorpactin Wcs-90) 2 gm TOP DAILY [facility] Last Admin: 11/10/16 11:07 Dose: Not Given Pantoprazole Sodium (Protonix Ec Tab) 40 mg PO 0600,1600 [facility] Last Admin: 11/12/16 05:54 Dose: 40 mg Pregabalin (Lyrica) 100 mg PO TID [facility] Last Admin: 11/11/16 17:29 Dose: 100 mg Sodium Bicarbonate (Sodium Bicarbonate Tab) 2,600 mg PO QID [facility] Last Admin: 11/11/16 22:20 Dose: 2,600 mg Zinc Sulfate (Zinc Sulfate 220 Mg Cap) 220 mg PO DAILY [facility] Last Admin: 11/11/16 10:37 Dose: 220 mg - Labs Labs: 11/11/16 07:33 11/11/16 07:33 PT 13.2 Seconds (9.9-11.8) H 11/11/16 05:40 INR 1.22 (0.93-1.08) H 11/11/16 05:40 APTT 32.0 Seconds (23.7-30.8) H 11/11/16 05:40 - Constitutional Appears: Non-toxic, No Acute Distress - Head Exam Head Exam: NORMAL INSPECTION - Eye Exam Eye Exam: Normal appearance - ENT Exam ENT Exam: Mucous Membranes Moist - Respiratory Exam Respiratory Exam: Clear to Ausculation Bilateral. absent: Rales, Rhonchi, Wheezes - Cardiovascular Exam Cardiovascular Exam: RRR, +S1, +S2 - GI/Abdominal Exam GI & Abdominal Exam: Soft. absent: Distended, Tenderness - Extremities Exam Additional comments: no leg edema; - Neurological Exam Neurological Exam: Alert, Awake - Psychiatric Exam Psychiatric exam: Normal Affect, Normal Mood - Skin Skin Exam: Warm. absent: Cyanosis Assessment and Plan (1) Acute renal failure Assessment & Plan: EMMETT on CKD; off HD since 2 days with serum creatinine and acidosis increasing as expected; no urgent need for HD today but will be needed within next few days ; patient is still in denial regarding her renal failure but as discussed with primary team, patient will need outpatient placement at HD center for EMMETT (not yet ESRD); will need tunneled HD cath; -continue lasix 40 IV daily (should be twice daily but patient very argumentative regarding this) Status: Acute (2) CKD (chronic kidney disease) Assessment & Plan: Etiology not completely clear; will repeat 24 hr protein and creat clearance, biopsy likely tomorrow (had to hold off due to severe anemia today); Status: Chronic (3) Anemia Assessment & Plan: Due to CKD, transfused 1 u prbc today, last aranesp dose last week, will give higher dose this week (80 mcg), likely has EPO resistance in the setting of active infection; Status: Acute (4) Metabolic acidosis Assessment & Plan: On PO sodium bicarb 2600 mg qid but likely won't be enough; continue for now; Status: Acute (5) Sepsis Assessment & Plan: On dapto every other day and meropenem 250 q12h, both dosed for HD; need to redose after HD; Status: Acute
[2016-11-12 06:53] LABS: BASO # 0.05 K/mm3 (0.0-2.0); BASO % 0.3 % (0.0-3.0); EOS # 0.4 (0.0-0.7); EOS % 2.5 % (1.5-5.0); GRAN # 11.57 (1.4-6.5); GRAN % 80.4 % (50.0-68.0); LYMPH # 1.6 (1.2-3.4); LYMPH % 11.4 % (22.0-35.0); MEAN CELL VOLUME 89.8 fl (80.0-105.0); MEAN CORPUSCULAR HEMOGLOBIN 28.2 pg (25.0-35.0); MEAN CORPUSCULAR HGB CONC 31.4 g/dl (31.0-37.0); MONO # 0.8 (0.1-0.6); MONO % 5.4 % (1.0-6.0); RED CELL DISTRIBUTION WIDTH 16.4 % (11.5-14.5); WHITE BLOOD COUNT 14.4 10^3/ul (4.5-11.0)
[2016-11-12 07:21] LABS: HEMATOCRIT 22.9 % (36.0-48.0)
[2016-11-12 08:00] LABS: ALB/GLOB RATIO 0.6 (1.1-1.8); BILIRUBIN,TOTAL 0.4 mg/dL (0.2-1.3); CALCIUM 8.4 mg/dL (8.4-10.5); MAGNESIUM 1.9 mg/dL (1.7-2.2); PHOSPHOROUS 3.7 mg/dL (2.5-4.5); POTASSIUM 3.9 mmol/L (3.6-5.0)
[2016-11-12] MEDS: Insulin Lispro (humaLOG) MEDIUM Coverage SC SCH ×4 (08:41→22:30)
[2016-11-12] MEDS: Multivitamin With Minerals Tab PO SCH (10:25)
[2016-11-12] MEDS: Ferrous Sulfate 300 mg/5 mL Liq UD PO SCH ×3 (10:26→18:58)
[2016-11-12] MEDS: Insulin Detemir 100 units/ml Vial (Levemir) SC SCH ×2 (10:27→19:00)
--- NOTE | 2016-11-12 10:41 | CP.PCM.PN ---
<Ata Ackerman - Last Filed: 11/12/16 10:32> Subjective - Date & Time of Evaluation Date of Evaluation: 11/12/16 Time of Evaluation: 09:40 - Subjective Subjective: Subjective: Patient seen and examined at bedside. No acute overnight events. Patient resting comfortably in bed. 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 States that she feels that she can take care of the wound vac and IV antibiotics at home. Offers no new complaints at this time. Denies f /c/p/sob/abdominal pain/n/v/diarrhea/constipation/urinary symptoms. Physical Exam: - Constitutional Appears: NAD - Head Exam Head Exam: ATRAUMATIC, NORMAL INSPECTION, NORMOCEPHALIC - Eye Exam Eye Exam: EOMI, Normal appearance, PERRL Pupil Exam: NORMAL ACCOMODATION, PERRL - ENT Exam ENT Exam: Mucous Membranes Moist, Normal Exam - Neck Exam Neck exam: Positive for: Normal Inspection - Respiratory Exam Respiratory Exam: Clear to Auscultation Bilateral, NORMAL BREATHING PATTERN - Cardiovascular Exam Cardiovascular Exam: REGULAR RHYTHM, +S1, +S2 - GI/Abdominal Exam GI & Abdominal Exam: Normal Bowel Sounds, Soft. absent: Tenderness - Extremities Exam Extremities exam: left foot bandaged with wound vac - Back Exam Back exam: CVA tenderness (L), CVA tenderness (R) - Neurological Exam Neurological exam: Alert, Oriented x3 - Psychiatric Exam Psychiatric exam: Normal Affect, Normal Mood Assessment: 36yo F PMH DM, HTN, HLD, RLE dvt and LLE ulcer who presents w/ Septic shock 2/2 pyelonephritis 2/2 untreated UTI. EMMETT still present, improving on dialysis. Metabolic acidosis resolved. Also found to be anemic, likely due to chronic disease (diabetes). Found to have UTI and LLE ulcer growing MRSA. MRI shows osteomyelitis of L calcaneus and diffuse plantar proximal aspect of L foot. s/p Merrem x6d. Patient is s/p debridement. Patient will be given 1 unit of PRBCs today. Plan: Septic Shock - resolved, BP stable - likely 2/2 osteomyelitis vs pyelo vs untreated UT - ID consulted, recs appreciated- continue daptomycin and meropenem - L foot wound cx growing MRSA and corynebacterium - Ucx growing MRSA - leukocytosis still present, but improving LLE ulcer - s/p I&D - wound care per podiatry - L Foot cx growing MRSA and corynbacterium - MRI L foot showed osteomyelitis of L calcaneus and diffuse plantar proximal aspect of L foot - continue zinc, multiple vitamin tablet EMMETT on CKD vs worsening CKD - Cr elevated from yesterday, Dr. Preston recs- transfuse another unit pRBC today - Nephrology consulted, recs appreciated concerning long-term dialysis - NAGMA noted- likely 2/2 diarrhea vs RTA IV; nephro recs- continue sodium bicarbonate tabs - RIJ in place Anemia likely 2/2 chronic dz - s/p 5u pRBC transfused - Hgb 7.2 noted- given one pRBCs today - likely due to chronic kidney 2/2 uncontrolled DM2 - Dr. Weaver consulted- appreciate recs- note reviewed, patient does not want her care at this time as patient has Dr. Granados outpatient, as per note the patient claims she already completed a bone marrow biopsy and was recommended to take iron - kappa/lambda are elevated Hx DM -glucose levels noted- BG 293- continue with levemir 7 BID - ISS med Peripheral Neuropathy - likely 2/2 to DM - Lyrica 100 TID Cardiomyopathy - ECHO shows EF of 35% - Cardioogy consulted, Dr. Ryan - Coreg 6.25 BID PPX - protonix - no scds due to foot infection, no lovenox due to renal function, no heparin due to decreasing H/H Disposition: - patient moved to remote tele Patient seen, examined, case discussed with, and plan approved by attending physician, Dr Talley. Objective - Vital Signs/Intake and Output Vital Signs (last 24 hours): Temp Pulse Resp BP Pulse Ox 100 F H 109 H 20 111/67 96 11/12/16 06:00 11/12/16 06:00 11/12/16 06:00 11/12/16 06:00 11/12/16 06:00 Intake and Output: 11/12/16 11/12/16 06:59 18:59 Intake Total 1020 840 Output Total 250 100 Balance 770 740 - Medications Medications: Current Medications Artificial Tears (Artificial Tears) 0.2 ml OU DAILY PRN PRN Reason: Dry skin Last Admin: 11/07/16 10:25 Dose: 2 drop Ascorbic Acid (Vitamin C 500 Mg Tab) 500 mg PO BID [facility] Last Admin: 11/11/16 17:31 Dose: 500 mg Carvedilol (Coreg) 6.25 mg PO BID [facility] Last Admin: 11/11/16 17:28 Dose: 6.25 mg Collagenase (Santyl) 0 gm TOP DAILY [facility] Last Admin: 11/11/16 10:35 Dose: Not Given Ferrous Sulfate (Feosol Liq) 300 mg PO TID [facility] Last Admin: 11/11/16 17:29 Dose: 300 mg Furosemide (Lasix) 40 mg IVP DAILY [facility] Last Admin: 11/11/16 10:31 Dose: 40 mg Meropenem 250 mg/ Sodium (Chloride) 100 mls @ 100 mls/hr IVPB Q12H [facility] PRN Reason: Protocol Stop: 11/19/16 09:31 Last Admin: 11/11/16 22:19 Dose: 100 mls/hr Daptomycin 420 mg/ Sodium (Chloride) 100 mls @ 200 mls/hr IV QOTHERDAY [facility] Stop: 11/16/16 11:16 Last Admin: 11/11/16 17:52 Dose: 200 mls/hr Insulin Detemir (Levemir) 7 unit SC BID [facility] Last Admin: 11/11/16 17:29 Dose: 7 unit Insulin Human Lispro (Humalog Med) 0 units SC ACHS [facility] PRN Reason: Protocol Last Admin: 11/12/16 08:41 Dose: 5 units Metoclopramide HCl (Reglan) 5 mg IVP ACHS [facility] Last Admin: 11/12/16 08:50 Dose: Not Given Multi-Ingredient Cream (Hydrocerin Cream) 0 ea TOP BID [facility] Last Admin: 11/11/16 17:29 Dose: 1 unit Multivitamins/Minerals (Therapeutic-M Tab) 1 tab PO 0800 [facility] Last Admin: 11/11/16 10:36 Dose: 1 tab Oxychlorosene Sodium (Clorpactin Wcs-90) 2 gm TOP DAILY [facility] Last Admin: 11/10/16 11:07 Dose: Not Given Pantoprazole Sodium (Protonix Ec Tab) 40 mg PO 0600,1600 [facility] Last Admin: 11/12/16 05:54 Dose: 40 mg Pregabalin (Lyrica) 100 mg PO TID [facility] Last Admin: 11/11/16 17:29 Dose: 100 mg Sodium Bicarbonate (Sodium Bicarbonate Tab) 2,600 mg PO QID [facility] Last Admin: 11/11/16 22:20 Dose: 2,600 mg Zinc Sulfate (Zinc Sulfate 220 Mg Cap) 220 mg PO DAILY [facility] Last Admin: 11/11/16 10:37 Dose: 220 mg - Labs Labs: 11/12/16 06:30 11/12/16 06:30 PT 13.2 Seconds (9.9-11.8) H 11/11/16 05:40 INR 1.22 (0.93-1.08) H 11/11/16 05:40 APTT 32.0 Seconds (23.7-30.8) H 11/11/16 05:40 <Laquita Talley - Last Filed: 11/12/16 12:29> Objective - Vital Signs/Intake and Output Vital Signs (last 24 hours): Temp Pulse Resp BP Pulse Ox 100 F H 109 H 20 111/67 96 11/12/16 06:00 11/12/16 10:26 11/12/16 06:00 11/12/16 10:26 11/12/16 06:00 Intake and Output: 11/12/16 11/12/16 06:59 18:59 Intake Total 1020 840 Output Total 250 100 Balance 770 740 - Medications Medications: Current Medications Artificial Tears (Artificial Tears) 0.2 ml OU DAILY PRN PRN Reason: Dry skin Last Admin: 11/07/16 10:25 Dose: 2 drop Ascorbic Acid (Vitamin C 500 Mg Tab) 500 mg PO BID [facility] Last Admin: 11/12/16 10:26 Dose: 500 mg Carvedilol (Coreg) 6.25 mg PO BID [facility] Last Admin: 11/12/16 10:26 Dose: 6.25 mg Collagenase (Santyl) 0 gm TOP DAILY [facility] Last Admin: 11/11/16 10:35 Dose: Not Given Ferrous Sulfate (Feosol Liq) 300 mg PO TID [facility] Last Admin: 11/12/16 10:26 Dose: 300 mg Furosemide (Lasix) 40 mg IVP DAILY [facility] Last Admin: 11/12/16 10:26 Dose: 40 mg Meropenem 250 mg/ Sodium (Chloride) 100 mls @ 100 mls/hr IVPB Q12H [facility] PRN Reason: Protocol Stop: 11/19/16 09:31 Last Admin: 11/12/16 10:28 Dose: 100 mls/hr Daptomycin 420 mg/ Sodium (Chloride) 100 mls @ 200 mls/hr IV QOTHERDAY [facility] Stop: 11/16/16 11:16 Last Admin: 11/11/16 17:52 Dose: 200 mls/hr Insulin Detemir (Levemir) 7 unit SC BID [facility] Last Admin: 11/12/16 10:27 Dose: 7 unit Insulin Human Lispro (Humalog Med) 0 units SC [facility] PRN Reason: Protocol Last Admin: 11/12/16 08:41 Dose: 5 units Metoclopramide HCl (Reglan) 5 mg IVP ACHS [facility] Last Admin: 11/12/16 08:50 Dose: Not Given Multi-Ingredient Cream (Hydrocerin Cream) 0 ea TOP BID [facility] Last Admin: 11/11/16 17:29 Dose: 1 unit Multivitamins/Minerals (Therapeutic-M Tab) 1 tab PO 0800 [facility] Last Admin: 11/12/16 10:25 Dose: 1 tab Oxychlorosene Sodium (Clorpactin Wcs-90) 2 gm TOP DAILY [facility] Last Admin: 11/10/16 11:07 Dose: Not Given Pantoprazole Sodium (Protonix Ec Tab) 40 mg PO 0600,1600 [facility] Last Admin: 11/12/16 05:54 Dose: 40 mg Pregabalin (Lyrica) 100 mg PO TID [facility] Last Admin: 11/12/16 10:26 Dose: 100 mg Sodium Bicarbonate (Sodium Bicarbonate Tab) 2,600 mg PO QID [facility] Last Admin: 11/12/16 10:26 Dose: 2,600 mg Zinc Sulfate (Zinc Sulfate 220 Mg Cap) 220 mg PO DAILY [facility] Last Admin: 11/12/16 10:25 Dose: 220 mg - Labs Labs: 11/12/16 06:30 11/12/16 06:30 PT 13.2 Seconds (9.9-11.8) H 11/11/16 05:40 INR 1.22 (0.93-1.08) H 11/11/16 05:40 APTT 32.0 Seconds (23.7-30.8) H 11/11/16 05:40 Attending/Attestation - Attestation I have personally seen and examined this patient.: Yes I have fully participated in the care of the patient.: Yes I have reviewed all pertinent clinical information, including history, physical exam and plan: Yes Notes (Text): 11/12/16 12:26 attending note; Patient seen and examined with the resident. Patient is a 36 year old female with history of IDDM, HTN, dyslipidemia, wheel chair bound, 2 amputated toes of left leg and chronic LE ulcer who presented with severe sepsis secondary to acute pyelonephritis, osteomyelitis of L foot, Acute on chronic kidney disease and anemia. patient is afebrile and nontoxic. Repeat Blood culture, urine culture is negative. on Meropenem and daptmycin. Need s 6 weeks of IV antibiotics for left calcaneal osteomyelitis. continue wound vac. case discussed with stand up comedian in detail. Patient underwent I&D and Left foot wound culture is growing corynebacterium and MRSA. Continue supportive boot and wound vac. anemia is multifactorial.got 1 unit PRBC transfusion yesterday. 1 unit PRBC transfusion today. 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 Patient needs long-term dialysis. Patient is refusing care home HD. cardiomyopathy: on Coreg. Long-term prognosis is poor secondary to multiple medical problems and noncompliance with follow-up. PT recommended [facility] vs [facility]. Upon discharge patient will follow up with .
[2016-11-12] MEDS: Hydrocerin(120 gm) TOP SCH ×2 (10:45→18:45)
--- NOTE | 2016-11-12 13:50 | CP.PCM.CON ---
<TyronJuan - Last Filed: 11/12/16 16:51> History of Present Illness - History of Present Illness History of Present Illness: Initial GI Consult Note Tamiko Gill is a 36F w/ hx of DM w/ neuropathy, CKD, previous DVT, chronically bedbound secondary to leg weakness, with L foot ulcers, presented to ED with nausea/vomiting, abd/flank pain and sinus pain. She was found to hypotensive and in acute renal failure with severe metabolic acidosis. She subsequently underwent dialysis for her EMMETT on CKD. Her hospital course was complicated with pyelonephritis, MRSA sepsis, and MRSA osteomylitis of the left foot. She was subquequently started on daptomycin and merrem. Concurrently, she developed diarrhea. Her diarrhea has sinced resolved. She denies any melena, BRBPR, or mucus. Her hgb has been ~7 throughout the hospital course. She received 1 unit PRBC yesterday when her hgb dropped to 6.7. She notes that she has been seen by hematology in the past at [facility] and apparently had an extensive eval including bone marrow and FOBT. She state that the field support rep simply diagnosed her with iron deficiency anemia and advised she recieve IV iron infusions. She states that she had one dose, but declined to continue due to generalized discomfort. Our field support rep was consulted, but she declined to be seen by him, since she has an establish field support rep as an outpt. She refused any additiona w/u for anemia at this time. EPO was given 1 week ago, but she may be resistant as per nephrology. PMH: HTN, DM2, Anemia, R leg DVT, R diabetic foot ulcers x 3 PSH: SH: Denies tobacco/etoh/illicit drugs Family hx: denies colon ca ROS: 12-point ROS conducted, neg other than above Past Patient History - Infectious Disease Hx of Infectious Diseases: None - Tetanus Immunizations Tetanus Immunization: Unknown - Past Medical History & Family History Past Medical History?: Yes - Past Social History Smoking Status: Never Smoked - CARDIAC Hx Pacemaker: No - PULMONARY Hx Respiratory Disorders: No - NEUROLOGICAL Other/Comment: NEUROPATHY - HEENT Hx HEENT Problems: No - RENAL Hx Chronic Kidney Disease: No - ENDOCRINE/METABOLIC Hx Diabetes Mellitus Type 2: Yes - HEMATOLOGICAL/ONCOLOGICAL Hx Cancer: No - INTEGUMENTARY Hx Dermatological Problems: No - MUSCULOSKELETAL/RHEUMATOLOGICAL Hx Falls: No - GASTROINTESTINAL Hx Gastrointestinal Disorders: No - GENITOURINARY/GYNECOLOGICAL Hx Genitourinary Disorders: No - PSYCHIATRIC Hx Depression: No Hx Emotional Abuse: No Hx Physical Abuse: No Hx Substance Use: No - SURGICAL HISTORY Hx Mastectomy: No - ANESTHESIA Hx Anesthesia Reactions: No Hx Malignant Hyperthermia: No Meds Allergies/Adverse Reactions: Allergies Allergy/AdvReac Type Severity Reaction Status Date / Time vancomycin Allergy RASH Verified 10/26/16 18:55 - Medications Medications: Current Medications Artificial Tears (Artificial Tears) 0.2 ml OU DAILY PRN PRN Reason: Dry skin Last Admin: 11/07/16 10:25 Dose: 2 drop Ascorbic Acid (Vitamin C 500 Mg Tab) 500 mg PO BID [facility] Last Admin: 11/12/16 10:26 Dose: 500 mg Carvedilol (Coreg) 6.25 mg PO BID [facility] Last Admin: 11/12/16 10:26 Dose: 6.25 mg Collagenase (Santyl) 0 gm TOP DAILY [facility] Last Admin: 11/11/16 10:35 Dose: Not Given Ferrous Sulfate (Feosol Liq) 300 mg PO TID [facility] Last Admin: 11/12/16 10:26 Dose: 300 mg Furosemide (Lasix) 40 mg IVP DAILY [facility] Last Admin: 11/12/16 10:26 Dose: 40 mg Meropenem 250 mg/ Sodium (Chloride) 100 mls @ 100 mls/hr IVPB Q12H [facility] PRN Reason: Protocol Stop: 11/19/16 09:31 Last Admin: 11/12/16 10:28 Dose: 100 mls/hr Daptomycin 420 mg/ Sodium (Chloride) 100 mls @ 200 mls/hr IV QOTHERDAY [facility] Stop: 11/16/16 11:16 Last Admin: 11/11/16 17:52 Dose: 200 mls/hr Insulin Detemir (Levemir) 7 unit SC BID [facility] Last Admin: 11/12/16 10:27 Dose: 7 unit Insulin Human Lispro (Humalog Med) 0 units SC ACHS [facility] PRN Reason: Protocol Last Admin: 11/12/16 08:41 Dose: 5 units Metoclopramide HCl (Reglan) 5 mg IVP ACHS [facility] Last Admin: 11/12/16 08:50 Dose: Not Given Multi-Ingredient Cream (Hydrocerin Cream) 0 ea TOP BID [facility] Last Admin: 11/11/16 17:29 Dose: 1 unit Multivitamins/Minerals (Therapeutic-M Tab) 1 tab PO 0800 [facility] Last Admin: 11/12/16 10:25 Dose: 1 tab Oxychlorosene Sodium (Clorpactin Wcs-90) 2 gm TOP DAILY [facility] Last Admin: 11/10/16 11:07 Dose: Not Given Pantoprazole Sodium (Protonix Ec Tab) 40 mg PO 0600,1600 [facility] Last Admin: 11/12/16 05:54 Dose: 40 mg Pregabalin (Lyrica) 100 mg PO TID [facility] Last Admin: 11/12/16 10:26 Dose: 100 mg Sodium Bicarbonate (Sodium Bicarbonate Tab) 2,600 mg PO QID [facility] Last Admin: 11/12/16 10:26 Dose: 2,600 mg Zinc Sulfate (Zinc Sulfate 220 Mg Cap) 220 mg PO DAILY [facility] Last Admin: 11/12/16 10:25 Dose: 220 mg Physical Exam - Constitutional Appears: Well, No Acute Distress, Chronically Ill - Head Exam Head Exam: ATRAUMATIC, NORMOCEPHALIC - Eye Exam Eye Exam: Normal appearance - ENT Exam ENT Exam: Mucous Membranes Moist - Respiratory Exam Respiratory Exam: Clear to Auscultation Bilateral, NORMAL BREATHING PATTERN. absent: Rales, Rhonchi, Wheezes, Respiratory Distress - Cardiovascular Exam Cardiovascular Exam: REGULAR RHYTHM, +S1, +S2 - GI/Abdominal Exam GI & Abdominal Exam: Normal Bowel Sounds, Soft. absent: Guarding, Rebound, Rigid, Tenderness - Extremities Exam Extremities exam: Negative for: joint swelling, pedal edema - Neurological Exam Neurological exam: Alert, Oriented x3 - Psychiatric Exam Psychiatric exam: Normal Affect, Normal Mood - Skin Skin Exam: Dry, Intact, Normal Color, Warm Results - Vital Signs Recent Vital Signs: Last Vital Signs Temp 100 F H 11/12/16 06:00 Pulse 109 H 11/12/16 10:26 Resp 20 11/12/16 06:00 BP 111/67 11/12/16 10:26 Pulse Ox 96 11/12/16 06:00 - Labs Result Diagrams: 11/12/16 06:30 11/12/16 06:30 Labs: Laboratory Results - last 24 hr 10/31/16 11/11/16 11/11/16 11:30 10:51 16:18 WBC RBC Hgb Hct MCV MCH MCHC RDW Plt Count MPV Gran % Lymph % (Auto) Twiggs % (Auto) Eos % (Auto) Baso % (Auto) Gran # Lymph # Twiggs # Eos # Baso # Sodium Potassium Chloride Carbon Dioxide Anion Gap BUN Creatinine Est GFR ( Amer) Est GFR (Non-Af Amer) POC Glucose (mg/dL) 415 H* Random Glucose Calcium Phosphorus Magnesium Total Bilirubin AST ALT Alkaline Phosphatase Total Protein Albumin Globulin Albumin/Globulin Ratio Blood Type B POSITIVE Antibody Screen Negative Crossmatch See Detail See Detail BBK History Checked Patient has bt 11/11/16 11/12/16 11/12/16 21:05 06:30 06:30 WBC 14.4 H RBC 2.55 L Hgb 7.2 L Hct 22.9 L MCV 89.8 MCH 28.2 MCHC 31.4 RDW 16.4 H Plt Count 353 MPV 9.0 Gran % 80.4 H Lymph % (Auto) 11.4 L Twiggs % (Auto) 5.4 Eos % (Auto) 2.5 Baso % (Auto) 0.3 Gran # 11.57 H Lymph # 1.6 Twiggs # 0.8 H Eos # 0.4 Baso # 0.05 Sodium 145 Potassium 3.9 Chloride 111 H Carbon Dioxide 18 L Anion Gap 20 BUN 50 H Creatinine 4.9 H Est GFR ( Amer) 12 Est GFR (Non-Af Amer) 10 POC Glucose (mg/dL) 246 H Random Glucose 295 H Calcium 8.4 Phosphorus 3.7 Magnesium 1.9 Total Bilirubin 0.4 AST 56 H D ALT 23 Alkaline Phosphatase 407 H Total Protein 8.0 Albumin 3.1 Globulin 5.0 Albumin/Globulin Ratio 0.6 L Blood Type Antibody Screen Crossmatch BBK History Checked 11/12/16 11/12/16 07:12 11:19 WBC RBC Hgb Hct MCV MCH MCHC RDW Plt Count MPV Gran % Lymph % (Auto) Twiggs % (Auto) Eos % (Auto) Baso % (Auto) Gran # Lymph # Twiggs # Eos # Baso # Sodium Potassium Chloride Carbon Dioxide Anion Gap BUN Creatinine Est GFR ( Amer) Est GFR (Non-Af Amer) POC Glucose (mg/dL) 293 H 176 H Random Glucose Calcium Phosphorus Magnesium Total Bilirubin AST ALT Alkaline Phosphatase Total Protein Albumin Globulin Albumin/Globulin Ratio Blood Type Antibody Screen Crossmatch BBK History Checked Assessment & Plan - Assessment and Plan (Free Text) Assessment: Sathya Gill is a 36F w. hx of anemia etiology likely 2/2 CKD and chronic disease, CKD, HTN, and DM who presented with sepsis, acute renal failure and fluid overload. Pt has normocytic anemia likely 2/2 anemia of chronic disease and CKD. 1. Normocytic anemia likely 2/2 CKD and chronic disease 2. EMMETT on CKD, on HD 3. Sepesis 4. Osteomyleitis Plan: -iron studies reveal etiology likely anemia of chronic disease vs CKD -hemobloginopathy unlikely -as per pt, she does not want any endoscopy or colonoscopy -explained to the pt in the case of chronic anemia and +FOBT, GI eval is appropriate to r/o ulcer, avm, malignancy -pt understood our recommendation and still declined -oupt information given, can follow-up as an oupt for colonoscopy and EGD -continue PPI daily -No need to repeat FOBT -please reconsult if pt changes her mind -will sign off D/W Dr. Granger <Jose Daniel Granger - Last Filed: 11/12/16 18:28> Meds - Medications Medications: Current Medications Artificial Tears (Artificial Tears) 0.2 ml OU DAILY PRN PRN Reason: Dry skin Last Admin: 11/07/16 10:25 Dose: 2 drop Ascorbic Acid (Vitamin C 500 Mg Tab) 500 mg PO BID [facility] Last Admin: 11/12/16 10:26 Dose: 500 mg Benzocaine/Menthol (Cepacol Sore Throat) 1 trent MT Q2H PRN PRN Reason: Sore Throat Carvedilol (Coreg) 6.25 mg PO BID [facility] Last Admin: 11/12/16 10:26 Dose: 6.25 mg Collagenase (Santyl) 0 gm TOP DAILY [facility] Last Admin: 11/12/16 17:18 Dose: Not Given Ferrous Sulfate (Feosol Liq) 300 mg PO TID [facility] Last Admin: 11/12/16 15:00 Dose: 300 mg Furosemide (Lasix) 40 mg IVP DAILY [facility] Last Admin: 11/12/16 10:26 Dose: 40 mg Meropenem 250 mg/ Sodium (Chloride) 100 mls @ 100 mls/hr IVPB Q12H [facility] PRN Reason: Protocol Stop: 11/19/16 09:31 Last Admin: 11/12/16 10:28 Dose: 100 mls/hr Daptomycin 420 mg/ Sodium (Chloride) 100 mls @ 200 mls/hr IV QOTHERDAY [facility] Stop: 11/16/16 11:16 Last Admin: 11/11/16 17:52 Dose: 200 mls/hr Insulin Detemir (Levemir) 7 unit SC BID [facility] Last Admin: 11/12/16 10:27 Dose: 7 unit Insulin Human Lispro (Humalog Med) 0 units SC [facility] PRN Reason: Protocol Last Admin: 11/12/16 08:41 Dose: 5 units Metoclopramide HCl (Reglan) 5 mg IVP [facility] Last Admin: 11/12/16 17:18 Dose: Not Given Multi-Ingredient Cream (Hydrocerin Cream) 0 ea TOP BID [facility] Last Admin: 11/11/16 17:29 Dose: 1 unit Multivitamins/Minerals (Therapeutic-M Tab) 1 tab PO 0800 [facility] Last Admin: 11/12/16 10:25 Dose: 1 tab Oxychlorosene Sodium (Clorpactin Wcs-90) 2 gm TOP DAILY [facility] Last Admin: 11/12/16 17:54 Dose: Not Given Pantoprazole Sodium (Protonix Ec Tab) 40 mg PO 0600,1600 [facility] Last Admin: 11/12/16 05:54 Dose: 40 mg Pregabalin (Lyrica) 100 mg PO TID [facility] Last Admin: 11/12/16 15:01 Dose: 100 mg Sodium Bicarbonate (Sodium Bicarbonate Tab) 2,600 mg PO QID [facility] Last Admin: 11/12/16 15:00 Dose: 2,600 mg Zinc Sulfate (Zinc Sulfate 220 Mg Cap) 220 mg PO DAILY [facility] Last Admin: 11/12/16 10:25 Dose: 220 mg Results - Vital Signs Recent Vital Signs: Last Vital Signs Temp 98.4 F 11/12/16 17:18 Pulse 101 H 11/12/16 17:18 Resp 20 11/12/16 17:18 BP 144/93 H 11/12/16 17:18 Pulse Ox 100 11/12/16 17:18 - Labs Result Diagrams: 11/12/16 06:30 11/12/16 06:30 Labs: Laboratory Results - last 24 hr 11/11/16 11/11/16 11/12/16 10:51 21:05 06:30 WBC 14.4 H RBC 2.55 L Hgb 7.2 L Hct 22.9 L MCV 89.8 MCH 28.2 MCHC 31.4 RDW 16.4 H Plt Count 353 MPV 9.0 Gran % 80.4 H Lymph % (Auto) 11.4 L Twiggs % (Auto) 5.4 Eos % (Auto) 2.5 Baso % (Auto) 0.3 Gran # 11.57 H Lymph # 1.6 Twiggs # 0.8 H Eos # 0.4 Baso # 0.05 Sodium Potassium Chloride Carbon Dioxide Anion Gap BUN Creatinine Est GFR ( Amer) Est GFR (Non-Af Amer) POC Glucose (mg/dL) 246 H Random Glucose Calcium Phosphorus Magnesium Total Bilirubin AST ALT Alkaline Phosphatase Total Protein Albumin Globulin Albumin/Globulin Ratio Blood Type B POSITIVE Antibody Screen Negative Crossmatch See Detail BBK History Checked Patient has bt 11/12/16 11/12/16 11/12/16 06:30 07:12 11:19 WBC RBC Hgb Hct MCV MCH MCHC RDW Plt Count MPV Gran % Lymph % (Auto) Twiggs % (Auto) Eos % (Auto) Baso % (Auto) Gran # Lymph # Twiggs # Eos # Baso # Sodium 145 Potassium 3.9 Chloride 111 H Carbon Dioxide 18 L Anion Gap 20 BUN 50 H Creatinine 4.9 H Est GFR ( Amer) 12 Est GFR (Non-Af Amer) 10 POC Glucose (mg/dL) 293 H 176 H Random Glucose 295 H Calcium 8.4 Phosphorus 3.7 Magnesium 1.9 Total Bilirubin 0.4 AST 56 H D ALT 23 Alkaline Phosphatase 407 H Total Protein 8.0 Albumin 3.1 Globulin 5.0 Albumin/Globulin Ratio 0.6 L Blood Type Antibody Screen Crossmatch BBK History Checked 11/12/16 16:27 WBC RBC Hgb Hct MCV MCH MCHC RDW Plt Count MPV Gran % Lymph % (Auto) Twiggs % (Auto) Eos % (Auto) Baso % (Auto) Gran # Lymph # Twiggs # Eos # Baso # Sodium Potassium Chloride Carbon Dioxide Anion Gap BUN Creatinine Est GFR ( Amer) Est GFR (Non-Af Amer) POC Glucose (mg/dL) 220 H Random Glucose Calcium Phosphorus Magnesium Total Bilirubin AST ALT Alkaline Phosphatase Total Protein Albumin Globulin Albumin/Globulin Ratio Blood Type Antibody Screen Crossmatch BBK History Checked Attending/Attestation - Attestation I have personally seen and examined this patient.: Yes I have fully participated in the care of the patient.: Yes I have reviewed all pertinent clinical information: Yes Notes (Text): 11/12/16 18:26 36 year old female with h/o CKD, HTN, and DM, osteomyelitis, MRSA infection, we are consulted for anemia. 1. Anemia 2. Occult blood positive Plan: -anemia is likely multifactorial, anemia of chronic kidney disease -advised patient that considering severe chronic anemia and occult blood positive, she should undergo an endoscopy/colonoscopy to evaluate for GI blood loss such as malignancy -She refuses at this time -she has no overt GI bleeding and no need for urgent procedures -this can be pursued electively as outpatient if she desires
--- NOTE | 2016-11-12 15:24 | PN ---
DATE: SUBJECTIVE: The patient is currently comfortable. Denies any chest pain or shortness of breath. PHYSICAL EXAMINATION: VITAL SIGNS: Blood pressure 111/61, heart rate 109, temperature 100, respiration 20. HEENT: Pale conjunctiva. CHEST: Clear. HEART: S1 and S2 regular. EXTREMITIES: No pedal edema. LABORATORY DATA: Hemoglobin and hematocrit 7.2 and 22.9, white count 15.4, platelet count 353,000. Today's BUN and creatinine are 50 and 4.9 respectively. Glucose is 295. Venous Doppler of lower extremity revealed no DVT and abdominal ultrasound report, no evidence of biliary obstruction, diffuse increase renal cortical echogenicity bilaterally. ASSESSMENT: 1. Systolic heart failure. 2. Acute renal failure, requiring hemodialysis. 3. Anemia. 4. Methicillin-resistant Staphylococcus aureus left foot infection status post incision and drainage. RECOMMENDATIONS: Continue current IV Lasix 40 mg daily, Coreg 6.25 mg twice a day. Continue IV meropenem 500 mg q. 12 hours. Case was discussed with both percussion instrument tuner and Dr. Talley. The patient or the mother has not agreed for renal biopsy yet. Semaj Ryan MD
--- NOTE | 2016-11-12 16:52 | PN ---
DATE: 11/12/2016 SUBJECTIVE: The patient is in bed, in no acute distress, seen earlier today. PHYSICAL EXAMINATION: VITAL SIGNS: Temperature of 100, blood pressure is 111/60, and respiratory rate of 18. HEENT: Unremarkable. NECK: Supple. LUNGS: Decreased breath sounds. HEART: Normal S1 and S2. ABDOMEN: Soft and nontender. LABORATORY DATA: Reveals a white count of 14,400, hemoglobin of 7, and platelets of 353. Chemistries were noted and the patient's is 0.52 on the first, BUN of 50, and creatinine of 4.9. Urinalysis is noted, too numerous to count wbc's. Microbiology is noted and repeat urine culture from 11/10/2016, is negative. Review of orders reveals the patient to be on meropenem. ASSESSMENT AND PLAN: A 36-year-old with severe sepsis, acute renal failure due to acute pyelonephritis, methicillin-resistant Staphylococcus aureus in the urine as well as left foot wound infection with abscess. MRI showing osteomyelitis, status post incision and drainage, postprocedure day #12, new onset of systemic inflammatory response syndrome in a diabetic, hypertensive, currently on renally adjusted daptomycin and meropenem is day #3 and urine culture negative and will need 6 weeks of antibiotics and review of orders reveals daptomycin to be active. We will follow with you. Dusty Crabtree MD
[2016-11-12] MEDS: Collagenase 250 Units/gm Ointment(30 gm) TOP SCH (17:18)
[2016-11-12] MEDS: Oxychlorosene Topical 2 gm Packet TOP SCH (17:54)
--- NOTE | 2016-11-12 18:33 | CP.PCM.PN ---
Subjective - Date & Time of Evaluation Date of Evaluation: 11/12/16 Time of Evaluation: 11:00 - Subjective Subjective: Reports feeling well, denies shortness of breath; Objective - Vital Signs/Intake and Output Vital Signs (last 24 hours): Temp Pulse Resp BP Pulse Ox 98.4 F 101 H 20 144/93 H 100 11/12/16 17:18 11/12/16 17:18 11/12/16 17:18 11/12/16 17:18 11/12/16 17:18 Intake and Output: 11/12/16 11/12/16 06:59 18:59 Intake Total 1020 1895 Output Total 250 3350 Balance 770 -1455 - Medications Medications: Current Medications Artificial Tears (Artificial Tears) 0.2 ml OU DAILY PRN PRN Reason: Dry skin Last Admin: 11/07/16 10:25 Dose: 2 drop Ascorbic Acid (Vitamin C 500 Mg Tab) 500 mg PO BID [facility] Last Admin: 11/12/16 10:26 Dose: 500 mg Benzocaine/Menthol (Cepacol Sore Throat) 1 trent MT Q2H PRN PRN Reason: Sore Throat Carvedilol (Coreg) 6.25 mg PO BID [facility] Last Admin: 11/12/16 10:26 Dose: 6.25 mg Collagenase (Santyl) 0 gm TOP DAILY [facility] Last Admin: 11/12/16 17:18 Dose: Not Given Ferrous Sulfate (Feosol Liq) 300 mg PO TID [facility] Last Admin: 11/12/16 15:00 Dose: 300 mg Furosemide (Lasix) 40 mg IVP DAILY [facility] Last Admin: 11/12/16 10:26 Dose: 40 mg Meropenem 250 mg/ Sodium (Chloride) 100 mls @ 100 mls/hr IVPB Q12H [facility] PRN Reason: Protocol Stop: 11/19/16 09:31 Last Admin: 11/12/16 10:28 Dose: 100 mls/hr Daptomycin 420 mg/ Sodium (Chloride) 100 mls @ 200 mls/hr IV QOTHERDAY [facility] Stop: 11/16/16 11:16 Last Admin: 11/11/16 17:52 Dose: 200 mls/hr Insulin Detemir (Levemir) 7 unit SC BID [facility] Last Admin: 11/12/16 10:27 Dose: 7 unit Insulin Human Lispro (Humalog Med) 0 units SC ACHS [facility] PRN Reason: Protocol Last Admin: 11/12/16 08:41 Dose: 5 units Metoclopramide HCl (Reglan) 5 mg IVP ACHS [facility] Last Admin: 11/12/16 17:18 Dose: Not Given Multi-Ingredient Cream (Hydrocerin Cream) 0 ea TOP BID [facility] Last Admin: 11/11/16 17:29 Dose: 1 unit Multivitamins/Minerals (Therapeutic-M Tab) 1 tab PO 0800 [facility] Last Admin: 11/12/16 10:25 Dose: 1 tab Oxychlorosene Sodium (Clorpactin Wcs-90) 2 gm TOP DAILY [facility] Last Admin: 11/12/16 17:54 Dose: Not Given Pantoprazole Sodium (Protonix Ec Tab) 40 mg PO 0600,1600 [facility] Last Admin: 11/12/16 05:54 Dose: 40 mg Pregabalin (Lyrica) 100 mg PO TID [facility] Last Admin: 11/12/16 15:01 Dose: 100 mg Sodium Bicarbonate (Sodium Bicarbonate Tab) 2,600 mg PO QID [facility] Last Admin: 11/12/16 15:00 Dose: 2,600 mg Zinc Sulfate (Zinc Sulfate 220 Mg Cap) 220 mg PO DAILY [facility] Last Admin: 11/12/16 10:25 Dose: 220 mg - Labs Labs: 11/12/16 06:30 11/12/16 06:30 PT 13.2 Seconds (9.9-11.8) H 11/11/16 05:40 INR 1.22 (0.93-1.08) H 11/11/16 05:40 APTT 32.0 Seconds (23.7-30.8) H 11/11/16 05:40 - Constitutional Appears: Non-toxic, No Acute Distress - Head Exam Head Exam: NORMAL INSPECTION - Eye Exam Eye Exam: Normal appearance - ENT Exam ENT Exam: Mucous Membranes Moist - Respiratory Exam Respiratory Exam: Clear to Ausculation Bilateral. absent: Rales, Rhonchi - Cardiovascular Exam Cardiovascular Exam: RRR, +S1, +S2 - GI/Abdominal Exam GI & Abdominal Exam: Soft. absent: Distended, Tenderness - Extremities Exam Additional comments: no leg edema; - Psychiatric Exam Psychiatric exam: Normal Affect, Normal Mood - Skin Skin Exam: Normal Color, Warm. absent: Cyanosis Assessment and Plan (1) Acute renal failure Assessment & Plan: EMMETT on CKD; etiology of acute component unclear with marked pyuria suspicious for pyelonephritis despite urine culture only growing yeast and patient clinically asymptomatic; serum creat increasing for 2nd straight day with last HD 3 days ago; will pursue renal biopsy tomorrow; Continuing to hold HD for now as patient continues to be in denial regarding its need; no urgent need to restart yet though metabolic acidosis is increasing ; will benefit from more diuretics (increasing IV lasix to 40 mg bid); Status: Acute (2) CKD (chronic kidney disease) Assessment & Plan: Etiology also unclear with serum creatinine only 1.1 in July 2015 and increasing to ~3 in September of this year; likely with diabetic changes but biopsy may be helpful; -24 hr urine for protein, creatinine, urea in progress; Status: Chronic (3) Anemia Assessment & Plan: Increase in hgb from 6.7 to 7.2 after 1 u prbc inappropriate; patient FOBT positive but refusing GI workup; getting 1 more u prbc today; IV lasix thereafter; continue aranesp weekly; Status: Acute (4) Metabolic acidosis Assessment & Plan: On sodium bicarb 2600 mg qid but not sufficient; will increase to 3900 mg; Status: Acute (5) Sepsis Assessment & Plan: On dapto and meropenem, dosed for HD; f/u repeat cultures; if blood culture positive, need to remove HD catheter; Status: Acute
[2016-11-12] MEDS: Benzocaine/Menthol (Cepacol) Lozenge MT PRN (18:53)
--- NOTE | 2016-11-13 04:55 | CP.PCM.PN ---
Addendum entered and electronically signed by Ata Ackerman DO 11/13/16 12:05: Correction under assessment: one unit of pRBC was given yesterday Original Note: <Ata Ackerman - Last Filed: 11/13/16 11:46> Subjective - Date & Time of Evaluation Date of Evaluation: 11/13/16 Time of Evaluation: 10:00 - Subjective Subjective: Subjective: Patient seen and examined at bedside. No acute overnight events. Patient resting comfortably in bed. Willing to have renal biopsy today. Offers no new complaints at this time. Denies f/c/p/sob/abdominal pain/n/v/diarrhea/ constipation/urinary symptoms. Physical Exam: - Constitutional Appears: NAD - Head Exam Head Exam: ATRAUMATIC, NORMAL INSPECTION, NORMOCEPHALIC - Eye Exam Eye Exam: EOMI, Normal appearance, PERRL Pupil Exam: NORMAL ACCOMODATION, PERRL - ENT Exam ENT Exam: Mucous Membranes Moist, Normal Exam - Neck Exam Neck exam: Positive for: Normal Inspection - Respiratory Exam Respiratory Exam: Clear to Auscultation Bilateral, NORMAL BREATHING PATTERN - Cardiovascular Exam Cardiovascular Exam: REGULAR RHYTHM, +S1, +S2 - GI/Abdominal Exam GI & Abdominal Exam: Normal Bowel Sounds, Soft. absent: Tenderness - Extremities Exam Extremities exam: left foot bandaged with wound vac - Back Exam Back exam: CVA tenderness (L), CVA tenderness (R) - Neurological Exam Neurological exam: Alert, Oriented x3 - Psychiatric Exam Psychiatric exam: Normal Affect, Normal Mood Assessment: 36yo F PMH DM, HTN, HLD, RLE dvt and LLE ulcer who presents w/ Septic shock 2/2 pyelonephritis 2/2 untreated UTI. EMMETT still present, improving on dialysis. Metabolic acidosis resolved. Also found to be anemic, likely due to chronic disease (diabetes). Found to have UTI and LLE ulcer growing MRSA. MRI shows osteomyelitis of L calcaneus and diffuse plantar proximal aspect of L foot. s/p Merrem x6d. Patient is s/p debridement. Patient will be given 1 unit of PRBCs today. Plan: Septic Shock - resolved, BP stable - likely 2/2 osteomyelitis vs pyelo vs untreated UT - ID consulted, recs appreciated- continue daptomycin and meropenem - L foot wound cx growing MRSA and corynebacterium - Ucx growing MRSA - leukocytosis still present, but improving LLE ulcer - s/p I&D - wound care per podiatry - L Foot cx growing MRSA and corynbacterium - MRI L foot showed osteomyelitis of L calcaneus and diffuse plantar proximal aspect of L foot - continue zinc, multiple vitamin tablet Worsening CKD - Cr elevated from yesterday, Dr. Preston recs- transfused one unit pRBC yesterday - Nephrology consulted, recs appreciated considering long-term dialysis, getting renal biopsy today - NAGMA noted- likely 2/2 diarrhea vs RTA IV; nephro recs- continue sodium bicarbonate tabs - RIJ in place Anemia likely 2/2 chronic dz - s/p 5u pRBC transfused - Hgb 8.2 noted- given one pRBCs yesterday - likely due to chronic kidney 2/2 uncontrolled DM2 - Dr. Weaver consulted- appreciate recs- note reviewed, patient does not want her care at this time as patient has Dr. Granados outpatient, as per note the patient claims she already completed a bone marrow biopsy and was recommended to take iron - kappa/lambda are elevated Hx DM -glucose levels noted- BG 293- continue with levemir 7 BID - ISS med Peripheral Neuropathy - likely 2/2 to DM - Lyrica 100 TID Cardiomyopathy - ECHO shows EF of 35% - Cardioogy consulted, Dr. Ryan - Coreg 6.25 BID PPX - protonix - no scds due to foot infection, no lovenox due to renal function, no heparin due to decreasing H/H Patient seen, examined, case discussed with, and plan approved by attending physician, Dr Talley. Objective - Vital Signs/Intake and Output Vital Signs (last 24 hours): Temp Pulse Resp BP Pulse Ox 98.4 F 111 H 20 134/84 100 11/12/16 17:18 11/12/16 19:46 11/12/16 17:18 11/12/16 20:56 11/12/16 17:18 Intake and Output: 11/12/16 11/13/16 18:59 06:59 Intake Total 1895 780 Output Total 3350 200 Balance -1455 580 - Medications Medications: Current Medications Artificial Tears (Artificial Tears) 0.2 ml OU DAILY PRN PRN Reason: Dry skin Last Admin: 11/07/16 10:25 Dose: 2 drop Ascorbic Acid (Vitamin C 500 Mg Tab) 500 mg PO BID [facility] Last Admin: 11/12/16 18:53 Dose: 500 mg Benzocaine/Menthol (Cepacol Sore Throat) 1 trent MT Q2H PRN PRN Reason: Sore Throat Last Admin: 11/12/16 18:53 Dose: 1 trent Carvedilol (Coreg) 6.25 mg PO BID [facility] Last Admin: 11/12/16 18:54 Dose: 6.25 mg Collagenase (Santyl) 0 gm TOP DAILY [facility] Last Admin: 11/12/16 17:18 Dose: Not Given Ferrous Sulfate (Feosol Liq) 300 mg PO TID [facility] Last Admin: 11/12/16 18:58 Dose: 300 mg Furosemide (Lasix) 40 mg IVP DAILY [facility] Last Admin: 11/12/16 10:26 Dose: 40 mg Meropenem 250 mg/ Sodium (Chloride) 100 mls @ 100 mls/hr IVPB Q12H [facility] PRN Reason: Protocol Stop: 11/19/16 09:31 Last Admin: 11/12/16 20:59 Dose: 100 mls/hr Daptomycin 420 mg/ Sodium (Chloride) 100 mls @ 200 mls/hr IV QOTHERDAY [facility] Stop: 11/16/16 11:16 Last Admin: 11/11/16 17:52 Dose: 200 mls/hr Insulin Detemir (Levemir) 7 unit SC BID [facility] Last Admin: 11/12/16 19:00 Dose: 7 unit Insulin Human Lispro (Humalog Med) 0 units SC [facility] PRN Reason: Protocol Last Admin: 11/12/16 18:01 Dose: 3 units Metoclopramide HCl (Reglan) 5 mg IVP ACHS [facility] Last Admin: 11/12/16 20:59 Dose: Not Given Multi-Ingredient Cream (Hydrocerin Cream) 0 ea TOP BID [facility] Last Admin: 11/12/16 18:45 Dose: 1 unit Multivitamins/Minerals (Therapeutic-M Tab) 1 tab PO 0800 [facility] Last Admin: 11/12/16 10:25 Dose: 1 tab Oxychlorosene Sodium (Clorpactin Wcs-90) 2 gm TOP DAILY [facility] Last Admin: 11/12/16 17:54 Dose: Not Given Pantoprazole Sodium (Protonix Ec Tab) 40 mg PO 0600,1600 [facility] Last Admin: 11/12/16 18:53 Dose: 40 mg Pregabalin (Lyrica) 100 mg PO TID [facility] Last Admin: 11/12/16 18:53 Dose: 100 mg Sodium Bicarbonate (Sodium Bicarbonate Tab) 2,600 mg PO QID [facility] Last Admin: 11/12/16 21:02 Dose: 2,600 mg Zinc Sulfate (Zinc Sulfate 220 Mg Cap) 220 mg PO DAILY [facility] Last Admin: 11/12/16 10:25 Dose: 220 mg - Labs Labs: 11/12/16 06:30 11/12/16 06:30 PT 13.2 Seconds (9.9-11.8) H 11/11/16 05:40 INR 1.22 (0.93-1.08) H 11/11/16 05:40 APTT 32.0 Seconds (23.7-30.8) H 11/11/16 05:40 <Laquita Talley - Last Filed: 11/14/16 14:44> Objective - Vital Signs/Intake and Output Vital Signs (last 24 hours): Temp Pulse Resp BP Pulse Ox 99.2 F 99 H 18 110/70 100 11/14/16 11:03 11/14/16 13:35 11/14/16 11:03 11/14/16 11:03 11/14/16 11:03 Intake and Output: 11/14/16 11/14/16 06:59 18:59 Intake Total 1240 Output Total 300 Balance 940 - Medications Medications: Current Medications Acetaminophen (Tylenol 325mg Tab) 650 mg PO Q4 PRN PRN Reason: Pain, Mild (1-3) Artificial Tears (Artificial Tears) 0.2 ml OU DAILY PRN PRN Reason: Dry skin Last Admin: 11/07/16 10:25 Dose: 2 drop Ascorbic Acid (Vitamin C 500 Mg Tab) 500 mg PO BID [facility] Last Admin: 11/14/16 12:35 Dose: 500 mg Benzocaine/Menthol (Cepacol Sore Throat) 1 trent MT Q2H PRN PRN Reason: Sore Throat Last Admin: 11/14/16 12:39 Dose: 1 trent Carvedilol (Coreg) 6.25 mg PO BID [facility] Last Admin: 11/14/16 12:29 Dose: 6.25 mg Collagenase (Santyl) 0 gm TOP DAILY [facility] Last Admin: 11/13/16 14:04 Dose: Not Given Ferrous Sulfate (Feosol Liq) 300 mg PO TID [facility] Last Admin: 11/14/16 12:30 Dose: 300 mg Furosemide (Lasix) 80 mg PO BID [facility] Meropenem 250 mg/ Sodium (Chloride) 100 mls @ 100 mls/hr IVPB Q12H [facility] PRN Reason: Protocol Stop: 11/19/16 09:31 Last Admin: 11/14/16 12:31 Dose: 100 mls/hr Daptomycin 420 mg/ Sodium (Chloride) 100 mls @ 200 mls/hr IV QOTHERDAY [facility] Stop: 11/16/16 11:16 Last Admin: 11/13/16 09:15 Dose: 200 mls/hr Sodium Chloride (Sodium Chloride 0.45%) 1,000 mls @ 80 mls/hr IV .[id number] [facility] Stop: 11/14/16 16:00 Last Admin: 11/14/16 12:34 Dose: 80 mls/hr Insulin Detemir (Levemir) 7 unit SC BID [facility] Last Admin: 11/14/16 12:24 Dose: Not Given Insulin Human Lispro (Humalog Med) 0 units SC ACHS [facility] PRN Reason: Protocol Last Admin: 11/14/16 12:23 Dose: Not Given Metoclopramide HCl (Reglan) 5 mg IVP ACHS [facility] Last Admin: 11/14/16 12:24 Dose: Not Given Multi-Ingredient Cream (Hydrocerin Cream) 0 ea TOP BID [facility] Last Admin: 11/13/16 18:44 Dose: 1 unit Multivitamins/Minerals (Therapeutic-M Tab) 1 tab PO 0800 [facility] Last Admin: 11/14/16 08:12 Dose: 1 tab Ondansetron HCl (Zofran Inj) 4 mg IVP Q6H PRN PRN Reason: Nausea/Vomiting Pantoprazole Sodium (Protonix Ec Tab) 40 mg PO 0600,1600 [facility] Last Admin: 11/14/16 06:09 Dose: 40 mg Pregabalin (Lyrica) 100 mg PO TID [facility] Last Admin: 11/14/16 12:31 Dose: 100 mg Sodium Bicarbonate (Sodium Bicarbonate Tab) 3,900 mg PO QID [facility] Last Admin: 11/14/16 12:32 Dose: 3,900 mg Zinc Sulfate (Zinc Sulfate 220 Mg Cap) 220 mg PO DAILY [facility] Last Admin: 11/14/16 12:35 Dose: 220 mg - Labs Labs: 11/14/16 06:00 11/14/16 06:00 PT 13.2 Seconds (9.9-11.8) H 11/11/16 05:40 INR 1.22 (0.93-1.08) H 11/11/16 05:40 APTT 32.0 Seconds (23.7-30.8) H 11/11/16 05:40 Attending/Attestation - Attestation I have personally seen and examined this patient.: Yes I have fully participated in the care of the patient.: Yes I have reviewed all pertinent clinical information, including history, physical exam and plan: Yes Notes (Text): 11/14/16 14:42 attending note; Patient seen and examined with the resident. Patient is a 36 year old female with history of IDDM, HTN, dyslipidemia, wheel chair bound, 2 amputated toes of left leg and chronic LE ulcer who presented with severe sepsis secondary to acute pyelonephritis, osteomyelitis of L foot, Acute on chronic kidney disease and anemia. patient is afebrile and nontoxic. Repeat Blood culture, urine culture is negative. left calcaneal osteomyelitis; on Meropenem and daptmycin. Need s 6 weeks of IV antibiotics. continue wound vac. case discussed with auger mill operator in detail. anemia is multifactorial.got 1 unit PRBC transfusion yesterday.. Discussed with industrial gas service helper. Patient needs long-term dialysis. 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 plan for renal biopsy today. cardiomyopathy: on Coreg. Long-term prognosis is poor secondary to multiple medical problems and noncompliance with follow-up. PT recommended [facility] vs [facility]. patient wants to go home. Upon discharge patient will follow up with . 11/14/16 14:42
[2016-11-13] MEDS: Pantoprazole 40 mg EC Tab PO SCH ×2 (06:05→18:44)
[2016-11-13] MEDS: Benzocaine/Menthol (Cepacol) Lozenge MT PRN ×4 (09:00→21:27)
[2016-11-13] MEDS: Ferrous Sulfate 300 mg/5 mL Liq UD PO SCH ×3 (09:00→18:41)
[2016-11-13] MEDS: Multivitamin With Minerals Tab PO SCH (09:00)
[2016-11-13] MEDS: Insulin Lispro (humaLOG) MEDIUM Coverage SC SCH ×4 (09:00→22:23)
[2016-11-13] MEDS: Insulin Detemir 100 units/ml Vial (Levemir) SC SCH ×2 (09:01→18:40)
[2016-11-13] MEDS: Hydrocerin(120 gm) TOP SCH ×2 (09:04→18:44)
[2016-11-13 09:24] LABS: BASO # 0.05 K/mm3 (0.0-2.0); BASO % 0.4 % (0.0-3.0); EOS # 0.3 (0.0-0.7); EOS % 2.6 % (1.5-5.0); GRAN # 10.47 (1.4-6.5); GRAN % 79.2 % (50.0-68.0); HEMATOCRIT 26.1 % (36.0-48.0); LYMPH # 1.6 (1.2-3.4); LYMPH % 12.1 % (22.0-35.0); MEAN CORPUSCULAR HEMOGLOBIN 28.3 pg (25.0-35.0); MEAN CORPUSCULAR HGB CONC 31.4 g/dl (31.0-37.0); MEAN PLATELET VOLUME 9.1 fl (7.0-11.0); MONO # 0.8 (0.1-0.6); MONO % 5.7 % (1.0-6.0); RED CELL DISTRIBUTION WIDTH 16.1 % (11.5-14.5); WHITE BLOOD COUNT 13.2 10^3/ul (4.5-11.0)
[2016-11-13 09:37] LABS: ALB/GLOB RATIO 0.6 (1.1-1.8); BILIRUBIN,TOTAL 0.5 mg/dL (0.2-1.3); CALCIUM 8.2 mg/dL (8.4-10.5); POTASSIUM 3.9 mmol/L (3.6-5.0)
--- NOTE | 2016-11-13 11:08 | CP.PCM.PN ---
<Pedrito Lobo - Last Filed: 11/13/16 11:02> Subjective - Date & Time of Evaluation Date of Evaluation: 11/13/16 Time of Evaluation: 11:02 - Subjective Subjective: Podiatry Progress Note - Dr. Craven 36 year old female patient seen at bedside POD#13 left foot I&D (DOS: 10/31/16) with mother seen at bedside. Patient is seen resting comfortably in bed, AAOx3 and in NAD. Patient is seen at bedside not wearing boots at all times while in bed. Patient denies N/V/C/SOB/calf pain. No other pedal complaints at this time. Objective - Vital Signs/Intake and Output Vital Signs (last 24 hours): Temp Pulse Resp BP Pulse Ox 99.7 F H 112 H 22 124/77 100 11/13/16 06:00 11/13/16 09:02 11/13/16 06:00 11/13/16 09:02 11/13/16 06:00 Intake and Output: 11/13/16 11/13/16 06:59 18:59 Intake Total 1500 Output Total 400 Balance 1100 - Medications Medications: Current Medications Artificial Tears (Artificial Tears) 0.2 ml OU DAILY PRN PRN Reason: Dry skin Last Admin: 11/07/16 10:25 Dose: 2 drop Ascorbic Acid (Vitamin C 500 Mg Tab) 500 mg PO BID [facility] Last Admin: 11/13/16 09:00 Dose: 500 mg Benzocaine/Menthol (Cepacol Sore Throat) 1 trent MT Q2H PRN PRN Reason: Sore Throat Last Admin: 11/13/16 09:00 Dose: 1 trent Carvedilol (Coreg) 6.25 mg PO BID [facility] Last Admin: 11/13/16 09:02 Dose: 6.25 mg Collagenase (Santyl) 0 gm TOP DAILY [facility] Last Admin: 11/12/16 17:18 Dose: Not Given Ferrous Sulfate (Feosol Liq) 300 mg PO TID [facility] Last Admin: 11/13/16 09:00 Dose: 300 mg Furosemide (Lasix) 40 mg IVP DAILY [facility] Last Admin: 11/13/16 09:00 Dose: 40 mg Meropenem 250 mg/ Sodium (Chloride) 100 mls @ 100 mls/hr IVPB Q12H [facility] PRN Reason: Protocol Stop: 11/19/16 09:31 Last Admin: 11/13/16 10:23 Dose: 100 mls/hr Daptomycin 420 mg/ Sodium (Chloride) 100 mls @ 200 mls/hr IV QOTHERDAY [facility] Stop: 11/16/16 11:16 Last Admin: 11/13/16 09:15 Dose: 200 mls/hr Insulin Detemir (Levemir) 7 unit SC BID [facility] Last Admin: 11/13/16 09:01 Dose: 7 unit Insulin Human Lispro (Humalog Med) 0 units SC ACHS [facility] PRN Reason: Protocol Last Admin: 11/13/16 09:00 Dose: 1 units Metoclopramide HCl (Reglan) 5 mg IVP ACHS [facility] Last Admin: 11/13/16 07:54 Dose: Not Given Multi-Ingredient Cream (Hydrocerin Cream) 0 ea TOP BID [facility] Last Admin: 11/13/16 09:04 Dose: 1 unit Multivitamins/Minerals (Therapeutic-M Tab) 1 tab PO 0800 [facility] Last Admin: 11/13/16 09:00 Dose: 1 tab Pantoprazole Sodium (Protonix Ec Tab) 40 mg PO 0600,1600 [facility] Last Admin: 11/13/16 06:05 Dose: 40 mg Pregabalin (Lyrica) 100 mg PO TID [facility] Last Admin: 11/13/16 09:00 Dose: 100 mg Sodium Bicarbonate (Sodium Bicarbonate Tab) 3,900 mg PO QID [facility] Last Admin: 11/13/16 08:59 Dose: 3,900 mg Zinc Sulfate (Zinc Sulfate 220 Mg Cap) 220 mg PO DAILY [facility] Last Admin: 11/13/16 09:00 Dose: 220 mg - Labs Labs: 11/13/16 09:00 11/13/16 09:00 PT 13.2 Seconds (9.9-11.8) H 11/11/16 05:40 INR 1.22 (0.93-1.08) H 11/11/16 05:40 APTT 32.0 Seconds (23.7-30.8) H 11/11/16 05:40 - Constitutional Appears: Well, Non-toxic, No Acute Distress - Extremities Exam Additional comments: WoundVAC to left foot appears clean/dry/intact with no leakage detected. Approximately 120 mL drainage seen in canister. VASC: DP and PT pulses palpable 2/4 b/l. TG WNL b/l. No edema noted to left foot. NEURO: Gross sensation absent bilaterally. DERM: LLE = Ulceration #1 noted to left medial heel measuring approximately 3 x 2.8 cm with a fibrous base and no current drainage noted, granulation tissue noted. Ulceration #2 located distal to ulcer #1 measuring approximately 0.5 x 0.5 cm with a fibrous base and no drainage noted; no active bleeding noted; granular tissue noted. It is noted that a linear incision was made during sx opening the communication between ulcers #1 and #2. Ulceration noted to the posterior aspect of left heel with fibrous base, also contiguous with ulcers #1 and #2. All ulcerations +probe to bone, -malodor, -ascending erythema, + purulence at this visit. RLE = Nonblanchable patch of erythema noted to plantarposterior calcaneus. ORTHO: No pain on palpation noted to foot b/l. - Neurological Exam Neurological Exam: Alert, Awake, Oriented x3 - Psychiatric Exam Psychiatric exam: Normal Affect, Normal Mood Assessment and Plan - Assessment and Plan (Free Text) Assessment: 36 year old female 36 year old female PMHx IDDM, renal failure, sepsis, metabolic acidosis, UTI, CKD, anemia 1) POD#10 left foot incision and drainage with wound debridement; 2) Stage 1 pressure ulcer right heel Plan: Patient seen and evaluated at bedside with attending Dr. Craven Chart, vitals, labs reviewed - afebrile, leukocytosis 13.2 Left foot wound culture = MRSA Urine culture - yeast WoundVAC changed today and placed over the left calcaneal wound. Canister found to have approximately 120 cc drainage total. Did not change dressing with Santyl today Smaller distal ulceration was dressed with maxosorb and reenforced with tegaderm. Entire foot was dressed with 4x4, abd, and kerlix. Per ID, continue renally-adjusted Daptomycin; patient will need 6 weeks of abx Heel offloading shoe is to be worn on left foot only when weightbearing. Discussed with patient and nursing offloading boots should be on at all times while in bed. Patient to wear multipodus boots at all times while in bed to prevent progression of pressure ulcer formation R heel. Continue Eucerin cream bilateral LE BID Prognosis for limb salvage poor At this point, no further debridements are considered for left foot; will be seen in followup Podiatry will continue to follow patient while in house <Logan Craven - Last Filed: 11/14/16 08:41> Objective - Vital Signs/Intake and Output Vital Signs (last 24 hours): Temp Pulse Resp BP Pulse Ox 98.9 F 101 H 22 130/80 100 11/13/16 17:28 11/14/16 02:00 11/13/16 17:28 11/13/16 17:28 11/13/16 17:28 Intake and Output: 11/14/16 11/14/16 06:59 18:59 Intake Total 1240 Output Total 300 Balance 940 - Medications Medications: Current Medications Artificial Tears (Artificial Tears) 0.2 ml OU DAILY PRN PRN Reason: Dry skin Last Admin: 11/07/16 10:25 Dose: 2 drop Ascorbic Acid (Vitamin C 500 Mg Tab) 500 mg PO BID [facility] Last Admin: 11/13/16 18:41 Dose: 500 mg Benzocaine/Menthol (Cepacol Sore Throat) 1 trent MT Q2H PRN PRN Reason: Sore Throat Last Admin: 11/14/16 08:09 Dose: 1 trent Carvedilol (Coreg) 6.25 mg PO BID [facility] Last Admin: 11/13/16 18:41 Dose: 6.25 mg Collagenase (Santyl) 0 gm TOP DAILY [facility] Last Admin: 11/13/16 14:04 Dose: Not Given Ferrous Sulfate (Feosol Liq) 300 mg PO TID [facility] Last Admin: 11/13/16 18:41 Dose: 300 mg Furosemide (Lasix) 40 mg IVP DAILY [facility] Last Admin: 11/13/16 09:00 Dose: 40 mg Meropenem 250 mg/ Sodium (Chloride) 100 mls @ 100 mls/hr IVPB Q12H [facility] PRN Reason: Protocol Stop: 11/19/16 09:31 Last Admin: 11/13/16 21:27 Dose: 100 mls/hr Daptomycin 420 mg/ Sodium (Chloride) 100 mls @ 200 mls/hr IV QOTHERDAY [facility] Stop: 11/16/16 11:16 Last Admin: 11/13/16 09:15 Dose: 200 mls/hr Insulin Detemir (Levemir) 7 unit SC BID [facility] Last Admin: 11/13/16 18:40 Dose: 7 unit Insulin Human Lispro (Humalog Med) 0 units SC ACHS [facility] PRN Reason: Protocol Last Admin: 11/14/16 08:11 Dose: 1 units Metoclopramide HCl (Reglan) 5 mg IVP ACHS [facility] Last Admin: 11/14/16 08:06 Dose: Not Given Multi-Ingredient Cream (Hydrocerin Cream) 0 ea TOP BID [facility] Last Admin: 11/13/16 18:44 Dose: 1 unit Multivitamins/Minerals (Therapeutic-M Tab) 1 tab PO 0800 [facility] Last Admin: 11/14/16 08:12 Dose: 1 tab Pantoprazole Sodium (Protonix Ec Tab) 40 mg PO 0600,1600 [facility] Last Admin: 11/14/16 06:09 Dose: 40 mg Pregabalin (Lyrica) 100 mg PO TID [facility] Last Admin: 11/13/16 18:41 Dose: 100 mg Sodium Bicarbonate (Sodium Bicarbonate Tab) 3,900 mg PO QID [facility] Last Admin: 11/13/16 21:27 Dose: 3,900 mg Zinc Sulfate (Zinc Sulfate 220 Mg Cap) 220 mg PO DAILY [facility] Last Admin: 11/13/16 09:00 Dose: 220 mg - Labs Labs: 11/14/16 06:00 11/14/16 06:00 PT 13.2 Seconds (9.9-11.8) H 11/11/16 05:40 INR 1.22 (0.93-1.08) H 11/11/16 05:40 APTT 32.0 Seconds (23.7-30.8) H 11/11/16 05:40 Attending/Attestation - Attestation I have personally seen and examined this patient.: Yes I have fully participated in the care of the patient.: Yes I have reviewed all pertinent clinical information, including history, physical exam and plan: Yes
[2016-11-13] MEDS: Oxychlorosene Topical 2 gm Packet TOP SCH (11:22)
[2016-11-13 13:26] LABS: URINE 24 HOUR UREA NITROGEN 107 GM/24HR (6-17); URINE COLLECTION TIME 24 HOURS
[2016-11-13] MEDS: Collagenase 250 Units/gm Ointment(30 gm) TOP SCH (14:04)
--- NOTE | 2016-11-13 19:01 | PN ---
DATE: SUBJECTIVE: The patient denies any chest pain. No shortness of breath at this time. PHYSICAL EXAMINATION VITAL SIGNS: Blood pressure 130/80, heart rate 112, temperature 98.9, respiration 22. HEENT: Pale conjunctivae. HEART: S1 and S2 regular. CHEST: Clear. EXTREMITIES: No pedal edema. LABORATORY DATA: BUN and creatinine are 57 and 5.5, potassium is within normal limit, glucose of 139. Hemoglobin and hematocrit 8.2 and 26.1, white count 13.2, platelet count 337,000. ASSESSMENT: 1. Cardiomyopathy. 2. Acute renal failure, requiring hemodialysis. 3. Anemia. 4. Methicillin-resistant Staphylococcus aureus left foot infection, status post incision and drainage. RECOMMENDATIONS: Continue Coreg 6.25 mg twice a day, daptomycin 420 mg intravenously daily, Feosol 300 mg t.i.d., Lasix 40 mg twice daily, meropenem 250 mg q. 12 hours. No decision by the patient's mother about renal biopsy yet. Semaj Ryan MD
--- NOTE | 2016-11-14 02:41 | PN ---
DATE: 11/13/2016 SUBJECTIVE: The patient seen in bed in no acute distress, was seen early this morning in room 378. Family members were sleeping on chair. PHYSICAL EXAMINATION VITAL SIGNS: Temperature is 98, blood pressure is 120/70, respiratory rate 22, heart rate of 112. HEENT: Unremarkable. NECK: Supple. LUNGS: Have decreased breath sounds. HEART: Normal S1 and S2. ABDOMEN: Soft and nontender. LABORATORY EXAMINATION: Reveals white count of 13,200 and hemoglobin of 8. BUN 57, creatinine of 5.5, alkaline phosphatase is 515, and the patient's procalcitonin was 0.52. Microbiology is noted to have urine culture to be negative from 11/10/2016 and blood cultures are no growth. Bacterial cultures, no seen on the staining, and no cultures are pending. C. diff antigen and toxin is negative. ASSESSMENT AND PLAN: A 36-year-old with severe sepsis, acute renal failure due to acute pyelonephritis, methicillin-resistant Staphylococcus aureus in the urine as well as left foot wound infection with abscess. MRI showing osteomyelitis, status post incision and drainage, postprocedure day #13 with new onset of systemic inflammatory response syndrome in a diabetic, hypertensive, currently on adjusted daptomycin and meropenem is day #4, will need six weeks of daptomycin. Review of the orders confirms daptomycin to be active and meropenem requiring renewal, which I will do so. Overall condition of this patient's medical problem is poor. Dusty Crabtree MD
[2016-11-14] MEDS: Benzocaine/Menthol (Cepacol) Lozenge MT PRN ×4 (04:32→14:42)
--- NOTE | 2016-11-14 04:38 | CP.PCM.PN ---
Subjective - Date & Time of Evaluation Date of Evaluation: 11/13/16 Time of Evaluation: 11:00 - Subjective Subjective: Patient reports feeling well; denies any shortness of breath; tolerating diet; Objective - Vital Signs/Intake and Output Vital Signs (last 24 hours): Temp Pulse Resp BP Pulse Ox 98.9 F 99 H 22 130/80 100 11/13/16 17:28 11/13/16 22:00 11/13/16 17:28 11/13/16 17:28 11/13/16 17:28 Intake and Output: 11/13/16 11/14/16 18:59 06:59 Intake Total 840 540 Output Total 325 200 Balance 515 340 - Medications Medications: Current Medications Artificial Tears (Artificial Tears) 0.2 ml OU DAILY PRN PRN Reason: Dry skin Last Admin: 11/07/16 10:25 Dose: 2 drop Ascorbic Acid (Vitamin C 500 Mg Tab) 500 mg PO BID [facility] Last Admin: 11/13/16 18:41 Dose: 500 mg Benzocaine/Menthol (Cepacol Sore Throat) 1 trent MT Q2H PRN PRN Reason: Sore Throat Last Admin: 11/14/16 04:32 Dose: 1 trent Carvedilol (Coreg) 6.25 mg PO BID [facility] Last Admin: 11/13/16 18:41 Dose: 6.25 mg Collagenase (Santyl) 0 gm TOP DAILY [facility] Last Admin: 11/13/16 14:04 Dose: Not Given Ferrous Sulfate (Feosol Liq) 300 mg PO TID [facility] Last Admin: 11/13/16 18:41 Dose: 300 mg Furosemide (Lasix) 40 mg IVP DAILY [facility] Last Admin: 11/13/16 09:00 Dose: 40 mg Meropenem 250 mg/ Sodium (Chloride) 100 mls @ 100 mls/hr IVPB Q12H [facility] PRN Reason: Protocol Stop: 11/19/16 09:31 Last Admin: 11/13/16 21:27 Dose: 100 mls/hr Daptomycin 420 mg/ Sodium (Chloride) 100 mls @ 200 mls/hr IV QOTHERDAY [facility] Stop: 11/16/16 11:16 Last Admin: 11/13/16 09:15 Dose: 200 mls/hr Insulin Detemir (Levemir) 7 unit SC BID [facility] Last Admin: 11/13/16 18:40 Dose: 7 unit Insulin Human Lispro (Humalog Med) 0 units SC [facility] PRN Reason: Protocol Last Admin: 11/13/16 22:23 Dose: Not Given Metoclopramide HCl (Reglan) 5 mg IVP ACHS [facility] Last Admin: 11/13/16 21:45 Dose: Not Given Multi-Ingredient Cream (Hydrocerin Cream) 0 ea TOP BID [facility] Last Admin: 11/13/16 18:44 Dose: 1 unit Multivitamins/Minerals (Therapeutic-M Tab) 1 tab PO 0800 [facility] Last Admin: 11/13/16 09:00 Dose: 1 tab Pantoprazole Sodium (Protonix Ec Tab) 40 mg PO 0600,1600 [facility] Last Admin: 11/13/16 18:44 Dose: 40 mg Pregabalin (Lyrica) 100 mg PO TID [facility] Last Admin: 11/13/16 18:41 Dose: 100 mg Sodium Bicarbonate (Sodium Bicarbonate Tab) 3,900 mg PO QID [facility] Last Admin: 11/13/16 21:27 Dose: 3,900 mg Zinc Sulfate (Zinc Sulfate 220 Mg Cap) 220 mg PO DAILY [facility] Last Admin: 11/13/16 09:00 Dose: 220 mg - Labs Labs: 11/13/16 09:00 11/13/16 11:10 PT 13.2 Seconds (9.9-11.8) H 11/11/16 05:40 INR 1.22 (0.93-1.08) H 11/11/16 05:40 APTT 32.0 Seconds (23.7-30.8) H 11/11/16 05:40 - Constitutional Appears: Non-toxic, No Acute Distress - Head Exam Head Exam: NORMAL INSPECTION - Eye Exam Eye Exam: Normal appearance - ENT Exam ENT Exam: Mucous Membranes Moist - Respiratory Exam Respiratory Exam: Clear to Ausculation Bilateral. absent: Rales, Rhonchi, Wheezes - Cardiovascular Exam Cardiovascular Exam: RRR, +S1, +S2 - GI/Abdominal Exam GI & Abdominal Exam: Soft. absent: Distended, Tenderness - Exam Exam: absent: Bladder Distension - Extremities Exam Additional comments: no leg edema; - Neurological Exam Neurological Exam: Alert, Awake - Psychiatric Exam Psychiatric exam: Normal Affect, Normal Mood - Skin Skin Exam: Warm. absent: Cyanosis Assessment and Plan (1) Acute renal failure Assessment & Plan: EMMETT on CKD; was for renal biopsy today but postponed tilll tomorrow; serum creat continues to rise; relatively stable electrolyte status with modest metabolic acidosis; continuing on sodium bicarb 650 mg 6 tabs qid; will assess daily for need for HD (last on 11/09); recommendation is for patient to be discharged with outpatient HD center setup unless there is some recovery of renal function; Status: Acute (2) CKD (chronic kidney disease) Assessment & Plan: Biopsy will be helpful in deciphering etiology; otherwise, awaiting result of 24 hr urine for protein, creatinine and BUN; Status: Chronic (3) Anemia Assessment & Plan: Hgb appropriately increased after 1 u prbc yesterday; on aranesp, will continue weekly; Status: Acute (4) Metabolic acidosis Assessment & Plan: See above; on very high doses of sodium bicarb which represents a high volume load that patient will not be able to handle without diuretics; will keep lasix IV at 40 mg daily for now (due to patient resistance in being given med) but will likely need higher doses and at least bid; Status: Acute (5) Sepsis Assessment & Plan: On dapto and meropenem, dosed for HD; Status: Acute
[2016-11-14] MEDS: Pantoprazole 40 mg EC Tab PO SCH ×2 (06:09→17:34)
[2016-11-14 06:46] LABS: BASO # 0.06 K/mm3 (0.0-2.0); BASO % 0.5 % (0.0-3.0); EOS # 0.4 (0.0-0.7); GRAN # 9.57 (1.4-6.5); GRAN % 76.2 % (50.0-68.0); HEMATOCRIT 25.3 % (36.0-48.0); LYMPH # 1.7 (1.2-3.4); LYMPH % 13.8 % (22.0-35.0); MEAN CELL VOLUME 90.7 fl (80.0-105.0); MEAN CORPUSCULAR HEMOGLOBIN 28.3 pg (25.0-35.0); MEAN CORPUSCULAR HGB CONC 31.2 g/dl (31.0-37.0); MEAN PLATELET VOLUME 9.3 fl (7.0-11.0); MONO # 0.8 (0.1-0.6); MONO % 6.5 % (1.0-6.0); RED CELL DISTRIBUTION WIDTH 16.4 % (11.5-14.5); WHITE BLOOD COUNT 12.6 10^3/ul (4.5-11.0)
[2016-11-14 07:15] LABS: ALB/GLOB RATIO 0.6 (1.1-1.8); BILIRUBIN,TOTAL 0.5 mg/dL (0.2-1.3); CALCIUM 8.3 mg/dL (8.4-10.5); POTASSIUM 4.2 mmol/L (3.6-5.0); TOTAL PROTEIN 7.9 g/dL (5.8-8.3)
--- NOTE | 2016-11-14 07:28 | CP.PCM.PN ---
<Ata Ackerman - Last Filed: 11/14/16 11:56> Subjective - Date & Time of Evaluation Date of Evaluation: 11/14/16 Time of Evaluation: 09:45 - Subjective Subjective: Subjective: Patient seen and examined at bedside. No acute overnight events. Patient resting comfortably in bed. Understands renal biopsy could not be done yesterday. Offers no new complaints at this time. Denies f/c/p/sob/abdominal pain/n/v/diarrhea/constipation/urinary symptoms. Physical Exam: - Constitutional Appears: NAD - Head Exam Head Exam: ATRAUMATIC, NORMAL INSPECTION, NORMOCEPHALIC - Eye Exam Eye Exam: EOMI, Normal appearance, PERRL Pupil Exam: NORMAL ACCOMODATION, PERRL - ENT Exam ENT Exam: Mucous Membranes Moist, Normal Exam - Neck Exam Neck exam: Positive for: Normal Inspection - Respiratory Exam Respiratory Exam: Clear to Auscultation Bilateral, NORMAL BREATHING PATTERN - Cardiovascular Exam Cardiovascular Exam: REGULAR RHYTHM, +S1, +S2 - GI/Abdominal Exam GI & Abdominal Exam: Normal Bowel Sounds, Soft. absent: Tenderness - Extremities Exam Extremities exam: left foot bandaged with wound vac - Back Exam Back exam: CVA tenderness (L), CVA tenderness (R) - Neurological Exam Neurological exam: Alert, Oriented x3 - Psychiatric Exam Psychiatric exam: Normal Affect, Normal Mood Assessment: 36yo F PMH DM, HTN, HLD, RLE dvt and LLE ulcer who presents w/ Septic shock 2/2 pyelonephritis 2/2 untreated UTI. EMMETT still present, improving on dialysis. Metabolic acidosis resolved. Also found to be anemic, likely due to chronic disease (diabetes). Found to have UTI and LLE ulcer growing MRSA. MRI shows osteomyelitis of L calcaneus and diffuse plantar proximal aspect of L foot. s/p Merrem x6d. Patient is s/p debridement. Plan: Septic Shock - resolved, BP stable - likely 2/2 osteomyelitis vs pyelo vs untreated UT - ID consulted, recs appreciated- continue daptomycin and meropenem - L foot wound cx growing MRSA and corynebacterium - Ucx growing MRSA - leukocytosis still present, but improving LLE ulcer - s/p I&D - wound care per podiatry - L Foot cx growing MRSA and corynbacterium - MRI L foot showed osteomyelitis of L calcaneus and diffuse plantar proximal aspect of L foot-continue daptomycin and meropenem - continue zinc, multiple vitamin tablet Worsening CKD - Cr elevated from yesterday, Dr. Mohan elizondo- renal biopsy required, scheduled for today - Nephrology consulted, recs appreciated- long-term dialysis will be required, renal biopsy could not be done yesterday due emergent cases - NAGMA noted- likely 2/2 diarrhea vs RTA IV; nephro recs- continue sodium bicarbonate tabs - RIJ in place Anemia likely 2/2 chronic dz - s/p 5u pRBC transfused - Hgb 8.2 noted- given one pRBCs yesterday - likely due to chronic kidney 2/2 uncontrolled DM2 - Dr. Weaver consulted- appreciate recs- note reviewed, patient does not want her care at this time as patient has Dr. Granados outpatient, as per note the patient claims she already completed a bone marrow biopsy and was recommended to take iron - kappa/lambda are elevated Hx DM -glucose levels noted- BG 105- continue with levemir 7 BID - ISS med Peripheral Neuropathy - likely 2/2 to DM - Lyrica 100 TID Cardiomyopathy - ECHO shows EF of 35% - Cardioogy consulted, Dr. Ryan- appreciate recommendations - c/w Coreg 6.25 BID an lasix PPX - protonix - no scds due to foot infection, no lovenox due to renal function, no heparin due to decreasing H/H Patient seen, examined, case discussed with, and plan approved by attending physician, Dr Talley. Objective - Vital Signs/Intake and Output Vital Signs (last 24 hours): Temp Pulse Resp BP Pulse Ox 98.9 F 101 H 22 130/80 100 11/13/16 17:28 11/14/16 02:00 11/13/16 17:28 11/13/16 17:28 11/13/16 17:28 Intake and Output: 11/14/16 11/14/16 06:59 18:59 Intake Total 1240 Output Total 300 Balance 940 - Medications Medications: Current Medications Artificial Tears (Artificial Tears) 0.2 ml OU DAILY PRN PRN Reason: Dry skin Last Admin: 11/07/16 10:25 Dose: 2 drop Ascorbic Acid (Vitamin C 500 Mg Tab) 500 mg PO BID [facility] Last Admin: 11/13/16 18:41 Dose: 500 mg Benzocaine/Menthol (Cepacol Sore Throat) 1 trent MT Q2H PRN PRN Reason: Sore Throat Last Admin: 11/14/16 04:32 Dose: 1 trent Carvedilol (Coreg) 6.25 mg PO BID [facility] Last Admin: 11/13/16 18:41 Dose: 6.25 mg Collagenase (Santyl) 0 gm TOP DAILY [facility] Last Admin: 11/13/16 14:04 Dose: Not Given Ferrous Sulfate (Feosol Liq) 300 mg PO TID [facility] Last Admin: 11/13/16 18:41 Dose: 300 mg Furosemide (Lasix) 40 mg IVP DAILY [facility] Last Admin: 11/13/16 09:00 Dose: 40 mg Meropenem 250 mg/ Sodium (Chloride) 100 mls @ 100 mls/hr IVPB Q12H [facility] PRN Reason: Protocol Stop: 11/19/16 09:31 Last Admin: 11/13/16 21:27 Dose: 100 mls/hr Daptomycin 420 mg/ Sodium (Chloride) 100 mls @ 200 mls/hr IV QOTHERDAY [facility] Stop: 11/16/16 11:16 Last Admin: 11/13/16 09:15 Dose: 200 mls/hr Insulin Detemir (Levemir) 7 unit SC BID [facility] Last Admin: 11/13/16 18:40 Dose: 7 unit Insulin Human Lispro (Humalog Med) 0 units SC [facility] PRN Reason: Protocol Last Admin: 11/13/16 22:23 Dose: Not Given Metoclopramide HCl (Reglan) 5 mg IVP ACHS [facility] Last Admin: 11/13/16 21:45 Dose: Not Given Multi-Ingredient Cream (Hydrocerin Cream) 0 ea TOP BID [facility] Last Admin: 11/13/16 18:44 Dose: 1 unit Multivitamins/Minerals (Therapeutic-M Tab) 1 tab PO 0800 [facility] Last Admin: 11/13/16 09:00 Dose: 1 tab Pantoprazole Sodium (Protonix Ec Tab) 40 mg PO 0600,1600 [facility] Last Admin: 11/14/16 06:09 Dose: 40 mg Pregabalin (Lyrica) 100 mg PO TID [facility] Last Admin: 11/13/16 18:41 Dose: 100 mg Sodium Bicarbonate (Sodium Bicarbonate Tab) 3,900 mg PO QID [facility] Last Admin: 11/13/16 21:27 Dose: 3,900 mg Zinc Sulfate (Zinc Sulfate 220 Mg Cap) 220 mg PO DAILY [facility] Last Admin: 11/13/16 09:00 Dose: 220 mg - Labs Labs: 11/13/16 09:00 11/13/16 11:10 PT 13.2 Seconds (9.9-11.8) H 11/11/16 05:40 INR 1.22 (0.93-1.08) H 11/11/16 05:40 APTT 32.0 Seconds (23.7-30.8) H 11/11/16 05:40 <Laquita Talley - Last Filed: 11/14/16 18:44> Objective - Vital Signs/Intake and Output Vital Signs (last 24 hours): Temp Pulse Resp BP Pulse Ox 98.9 F 114 H 22 140/88 97 11/14/16 18:05 11/14/16 18:05 11/14/16 18:05 11/14/16 18:05 11/14/16 18:05 Intake and Output: 11/14/16 11/14/16 06:59 18:59 Intake Total 1240 Output Total 300 Balance 940 - Medications Medications: Current Medications Acetaminophen (Tylenol 325mg Tab) 650 mg PO Q4 PRN PRN Reason: Pain, Mild (1-3) Artificial Tears (Artificial Tears) 0.2 ml OU DAILY PRN PRN Reason: Dry skin Last Admin: 11/07/16 10:25 Dose: 2 drop Ascorbic Acid (Vitamin C 500 Mg Tab) 500 mg PO BID [facility] Last Admin: 11/14/16 17:35 Dose: 500 mg Benzocaine/Menthol (Cepacol Sore Throat) 1 trent MT Q2H PRN PRN Reason: Sore Throat Last Admin: 11/14/16 14:42 Dose: 1 trent Carvedilol (Coreg) 6.25 mg PO BID [facility] Last Admin: 11/14/16 17:30 Dose: 6.25 mg Collagenase (Santyl) 0 gm TOP DAILY [facility] Last Admin: 11/14/16 15:20 Dose: 1 applic Ferrous Sulfate (Feosol Liq) 300 mg PO TID [facility] Last Admin: 11/14/16 17:30 Dose: 300 mg Furosemide (Lasix) 80 mg PO BID [facility] Last Admin: 11/14/16 17:33 Dose: 80 mg Meropenem 250 mg/ Sodium (Chloride) 100 mls @ 100 mls/hr IVPB Q12H [facility] PRN Reason: Protocol Stop: 11/19/16 09:31 Last Admin: 11/14/16 12:31 Dose: 100 mls/hr Daptomycin 420 mg/ Sodium (Chloride) 100 mls @ 200 mls/hr IV QOTHERDAY [facility] Stop: 11/16/16 11:16 Last Admin: 11/13/16 09:15 Dose: 200 mls/hr Insulin Detemir (Levemir) 7 unit SC BID [facility] Last Admin: 11/14/16 17:34 Dose: 7 unit Insulin Human Lispro (Humalog Med) 0 units SC ACHS [facility] PRN Reason: Protocol Last Admin: 11/14/16 17:31 Dose: 1 units Multi-Ingredient Cream (Hydrocerin Cream) 0 ea TOP BID [facility] Last Admin: 11/14/16 17:33 Dose: 1 unit Multivitamins/Minerals (Therapeutic-M Tab) 1 tab PO 0800 [facility] Last Admin: 11/14/16 08:12 Dose: 1 tab Ondansetron HCl (Zofran Inj) 4 mg IVP Q6H PRN PRN Reason: Nausea/Vomiting Pantoprazole Sodium (Protonix Ec Tab) 40 mg PO 0600,1600 [facility] Last Admin: 11/14/16 17:34 Dose: 40 mg Pregabalin (Lyrica) 100 mg PO TID [facility] Last Admin: 11/14/16 17:34 Dose: 100 mg Sodium Bicarbonate (Sodium Bicarbonate Tab) 3,900 mg PO QID [facility] Last Admin: 11/14/16 17:34 Dose: 3,900 mg Zinc Sulfate (Zinc Sulfate 220 Mg Cap) 220 mg PO DAILY [facility] Last Admin: 11/14/16 12:35 Dose: 220 mg - Labs Labs: 11/14/16 06:00 11/14/16 06:00 PT 13.2 Seconds (9.9-11.8) H 11/11/16 05:40 INR 1.22 (0.93-1.08) H 11/11/16 05:40 APTT 32.0 Seconds (23.7-30.8) H 11/11/16 05:40 Attending/Attestation - Attestation I have personally seen and examined this patient.: Yes I have fully participated in the care of the patient.: Yes I have reviewed all pertinent clinical information, including history, physical exam and plan: Yes Notes (Text): 11/14/16 18:43 attending note; Patient seen and examined with the resident. Patient is a 36 year old female with history of IDDM, HTN, dyslipidemia, wheel chair bound, 2 amputated toes of left leg and chronic LE ulcer who presented with severe sepsis secondary to acute pyelonephritis, osteomyelitis of L foot, Acute on chronic kidney disease and anemia. patient is afebrile and nontoxic. Repeat Blood culture, urine culture is negative. left calcaneal osteomyelitis; on Meropenem and daptmycin. Need s 6 weeks of IV antibiotics. continue wound vac. anemia is multifactorial.got 1 unit PRBC transfusion yesterday. 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 Patient needs long-term dialysis. plan for renal biopsy today. cardiomyopathy: on Coreg. Long-term prognosis is poor secondary to multiple medical problems and noncompliance with follow-up. PT recommended [facility] vs HWS. patient wants to go home. Upon discharge patient will follow up with . 11/14/16 18:44
[2016-11-14] MEDS: Insulin Lispro (humaLOG) MEDIUM Coverage SC SCH ×4 (08:11→22:33)
[2016-11-14] MEDS: Multivitamin With Minerals Tab PO SCH (08:12)
[2016-11-14] MEDS ORDERED: Midazolam 2 MG/2 ML VIAL ONE (09:24)
--- NOTE | 2016-11-14 10:08 | CP.PCM.PN ---
<Pedrito Lobo - Last Filed: 11/14/16 10:02> Subjective - Date & Time of Evaluation Date of Evaluation: 11/14/16 Time of Evaluation: 10:02 - Subjective Subjective: Podiatry Progress Note - Dr. Craven 36 year old female patient seen at bedside POD#14 left foot I&D (DOS: 10/31/16) with mother seen at bedside. Patient is seen resting comfortably in bed, AAOx3 and in NAD. Patient is seen wearing boots at the time of visitation. Patient denies N/V/C/SOB/calf pain. No other pedal complaints at this time. Objective - Vital Signs/Intake and Output Vital Signs (last 24 hours): Temp Pulse Resp BP Pulse Ox 99.6 F 110 H 22 132/87 95 11/14/16 06:00 11/14/16 06:00 11/14/16 06:00 11/14/16 06:00 11/14/16 06:00 Intake and Output: 11/14/16 11/14/16 06:59 18:59 Intake Total 1240 Output Total 300 Balance 940 - Medications Medications: Current Medications Artificial Tears (Artificial Tears) 0.2 ml OU DAILY PRN PRN Reason: Dry skin Last Admin: 11/07/16 10:25 Dose: 2 drop Ascorbic Acid (Vitamin C 500 Mg Tab) 500 mg PO BID [facility] Last Admin: 11/13/16 18:41 Dose: 500 mg Benzocaine/Menthol (Cepacol Sore Throat) 1 trent MT Q2H PRN PRN Reason: Sore Throat Last Admin: 11/14/16 08:09 Dose: 1 trent Carvedilol (Coreg) 6.25 mg PO BID [facility] Last Admin: 11/13/16 18:41 Dose: 6.25 mg Collagenase (Santyl) 0 gm TOP DAILY [facility] Last Admin: 11/13/16 14:04 Dose: Not Given Ferrous Sulfate (Feosol Liq) 300 mg PO TID [facility] Last Admin: 11/13/16 18:41 Dose: 300 mg Furosemide (Lasix) 40 mg IVP DAILY [facility] Last Admin: 11/13/16 09:00 Dose: 40 mg Meropenem 250 mg/ Sodium (Chloride) 100 mls @ 100 mls/hr IVPB Q12H [facility] PRN Reason: Protocol Stop: 11/19/16 09:31 Last Admin: 11/13/16 21:27 Dose: 100 mls/hr Daptomycin 420 mg/ Sodium (Chloride) 100 mls @ 200 mls/hr IV QOTHERDAY [facility] Stop: 11/16/16 11:16 Last Admin: 11/13/16 09:15 Dose: 200 mls/hr Insulin Detemir (Levemir) 7 unit SC BID [facility] Last Admin: 11/13/16 18:40 Dose: 7 unit Insulin Human Lispro (Humalog Med) 0 units SC ACHS [facility] PRN Reason: Protocol Last Admin: 11/14/16 08:11 Dose: 1 units Metoclopramide HCl (Reglan) 5 mg IVP ACHS [facility] Last Admin: 11/14/16 08:06 Dose: Not Given Multi-Ingredient Cream (Hydrocerin Cream) 0 ea TOP BID [facility] Last Admin: 11/13/16 18:44 Dose: 1 unit Multivitamins/Minerals (Therapeutic-M Tab) 1 tab PO 0800 [facility] Last Admin: 11/14/16 08:12 Dose: 1 tab Pantoprazole Sodium (Protonix Ec Tab) 40 mg PO 0600,1600 [facility] Last Admin: 11/14/16 06:09 Dose: 40 mg Pregabalin (Lyrica) 100 mg PO TID [facility] Last Admin: 11/13/16 18:41 Dose: 100 mg Sodium Bicarbonate (Sodium Bicarbonate Tab) 3,900 mg PO QID [facility] Last Admin: 11/13/16 21:27 Dose: 3,900 mg Zinc Sulfate (Zinc Sulfate 220 Mg Cap) 220 mg PO DAILY [facility] Last Admin: 11/13/16 09:00 Dose: 220 mg - Labs Labs: 11/14/16 06:00 11/14/16 06:00 PT 13.2 Seconds (9.9-11.8) H 11/11/16 05:40 INR 1.22 (0.93-1.08) H 11/11/16 05:40 APTT 32.0 Seconds (23.7-30.8) H 11/11/16 05:40 - Constitutional Appears: Well, Non-toxic, No Acute Distress - Extremities Exam Additional comments: WoundVAC to left foot appears clean/dry/intact with no leakage detected. Approximately 120 mL drainage seen in canister. Dressing is clean, dry, and intact. - Neurological Exam Neurological Exam: Alert, Awake, Oriented x3 - Psychiatric Exam Psychiatric exam: Normal Affect, Normal Mood Assessment and Plan - Assessment and Plan (Free Text) Assessment: 36 year old female 36 year old female PMHx IDDM, renal failure, sepsis, metabolic acidosis, UTI, CKD, anemia 1) POD#10 left foot incision and drainage with wound debridement; 2) Stage 1 pressure ulcer right heel Plan: Patient seen and evaluated at bedside with attending Dr. Craven Chart, vitals, labs reviewed - afebrile, leukocytosis 12.6 (decreased from WBC=13.2) Left foot wound culture = MRSA Urine culture - yeast Per ID, continue renally-adjusted Daptomycin; patient will need 6 weeks of abx WoundVAC was not changed today. Will change WoundVac tomorrow. Wound is more granulated and improving. Plan on discontinuing WoundVac possibility tomorrow and provide local wound care while in house. Heel offloading shoe is to be worn on left foot only when weightbearing. Discussed with patient and nursing offloading boots should be on at all times while in bed. Patient to wear multipodus boots at all times while in bed to prevent progression of pressure ulcer formation R heel. Continue Eucerin cream bilateral LE BID Prognosis for limb salvage poor At this point, no further debridements are considered for left foot; will be seen in followup Podiatry will continue to follow patient while in house <Logan Craven - Last Filed: 11/17/16 11:25> Objective - Vital Signs/Intake and Output Vital Signs (last 24 hours): Temp Pulse Resp BP Pulse Ox 99.5 F 102 H 22 128/88 99 11/17/16 07:41 11/17/16 07:41 11/17/16 07:41 11/17/16 07:41 11/17/16 07:41 Intake and Output: 11/17/16 11/17/16 06:59 18:59 Intake Total 1020 Output Total 400 Balance 620 - Medications Medications: Current Medications Acetaminophen (Tylenol 325mg Tab) 650 mg PO Q4 PRN PRN Reason: Pain, Mild (1-3) Artificial Tears (Artificial Tears) 0.2 ml OU DAILY PRN PRN Reason: Dry skin Last Admin: 11/07/16 10:25 Dose: 2 drop Benzocaine/Menthol (Cepacol Sore Throat) 1 trent MT Q2H PRN PRN Reason: Sore Throat Last Admin: 11/17/16 06:38 Dose: 1 trent Collagenase (Santyl) 0 gm TOP DAILY [facility] Last Admin: 11/16/16 09:34 Dose: Not Given Furosemide (Lasix) 120 mg IVP 0600,1800 [facility] Last Admin: 11/17/16 06:37 Dose: 120 mg Meropenem 250 mg/ Sodium (Chloride) 100 mls @ 100 mls/hr IVPB Q12H [facility] PRN Reason: Protocol Stop: 11/19/16 09:31 Last Admin: 11/16/16 22:16 Dose: 100 mls/hr Fluconazole 100 mg/ (Miscellaneous) 50 mls @ 100 mls/hr IVPB DAILY [facility] PRN Reason: Protocol Last Admin: 11/16/16 10:31 Dose: 100 mls/hr Daptomycin 420 mg/ Sodium (Chloride) 100 mls @ 200 mls/hr IV QOTHERDAY [facility] Stop: 12/15/16 10:31 Insulin Detemir (Levemir) 7 unit SC BID [facility] Last Admin: 11/16/16 18:16 Dose: 7 unit Insulin Human Lispro (Humalog Med) 0 units SC ACHS [facility] PRN Reason: Protocol Last Admin: 11/17/16 08:46 Dose: 5 units Multi-Ingredient Cream (Hydrocerin Cream) 0 ea TOP BID [facility] Last Admin: 11/16/16 18:12 Dose: 1 unit Ondansetron HCl (Zofran Inj) 4 mg IVP Q6H PRN PRN Reason: Nausea/Vomiting Sodium Bicarbonate (Sodium Bicarbonate Tab) 3,900 mg PO QID [facility] Last Admin: 11/15/16 14:34 Dose: 3,900 mg - Labs Labs: 11/17/16 05:00 11/17/16 05:00 PT 13.2 Seconds (9.9-11.8) H 11/11/16 05:40 INR 1.22 (0.93-1.08) H 11/11/16 05:40 APTT 32.0 Seconds (23.7-30.8) H 11/11/16 05:40 Attending/Attestation - Attestation I have personally seen and examined this patient.: Yes I have fully participated in the care of the patient.: Yes I have reviewed all pertinent clinical information, including history, physical exam and plan: Yes
[2016-11-14] MEDS ORDERED: Sodium Chloride 0.45% 1,000 ML IV SCH (10:30)
[2016-11-14] MEDS: Insulin Detemir 100 units/ml Vial (Levemir) SC SCH ×2 (12:24→17:34)
[2016-11-14] MEDS: Ferrous Sulfate 300 mg/5 mL Liq UD PO SCH ×3 (12:30→17:30)
[2016-11-14] MEDS: Collagenase 250 Units/gm Ointment(30 gm) TOP SCH (15:20)
[2016-11-14] MEDS: Hydrocerin(120 gm) TOP SCH ×2 (15:20→17:33)
--- NOTE | 2016-11-14 18:11 | PN ---
SUBJECTIVE: The patient seen in bed in no acute distress. PHYSICAL EXAMINATION: VITAL SIGNS: Temperature is 98, blood pressure is 110/70, respiratory rate 16. HEENT: Unremarkable. NECK: Supple. LUNGS: Decreased breath sounds. HEART: Normal S1 and S2. ABDOMEN: Soft and nontender. LABORATORY EXAMINATION: Reveals white count of 12,600, hemoglobin of 7, platelets of 337. BUN 63, creatinine of 5.8. Microbiology is noted. Blood cultures are negative with repeat ones. REVIEW OF ORDERS: Reveals the patient to be daptomycin and meropenem. The patient went for a CAT scan guided kidney biopsy today. ASSESSMENT AND PLAN: A 36-year-old female who is ALLERGIC TO VANCOMYCIN, who was admitted with severe sepsis, acute renal failure, pyelonephritis with methicillin-resistant Staphylococcus aureus in the urine as well as the left foot wound with abscess. MRI showing osteomyelitis, status post incision and drainage, postprocedure day #14 with a new onset of systemic inflammatory response syndrome on daptomycin and also on meropenem day #5, will need 6 weeks of daptomycin. Recommended CBC, SMA-18, sed rate, C-reactive protein and a CPK once weekly. The patient has now been afebrile with improving white count of 12,600 and procalcitonin is down to 0.52. We will continue the present course. Dusty Crabtree MD
--- NOTE | 2016-11-14 18:37 | CP.PCM.PN ---
Subjective - Date & Time of Evaluation Date of Evaluation: 11/14/16 Time of Evaluation: 11:00 - Subjective Subjective: Patient s/p renal biopsy earlier today; initially drowsy on interview; otherwise reports feeling well; Objective - Vital Signs/Intake and Output Vital Signs (last 24 hours): Temp Pulse Resp BP Pulse Ox 98.9 F 114 H 22 140/88 97 11/14/16 18:05 11/14/16 18:05 11/14/16 18:05 11/14/16 18:05 11/14/16 18:05 Intake and Output: 11/14/16 11/14/16 06:59 18:59 Intake Total 1240 Output Total 300 Balance 940 - Medications Medications: Current Medications Acetaminophen (Tylenol 325mg Tab) 650 mg PO Q4 PRN PRN Reason: Pain, Mild (1-3) Artificial Tears (Artificial Tears) 0.2 ml OU DAILY PRN PRN Reason: Dry skin Last Admin: 11/07/16 10:25 Dose: 2 drop Ascorbic Acid (Vitamin C 500 Mg Tab) 500 mg PO BID [facility] Last Admin: 11/14/16 17:35 Dose: 500 mg Benzocaine/Menthol (Cepacol Sore Throat) 1 trent MT Q2H PRN PRN Reason: Sore Throat Last Admin: 11/14/16 14:42 Dose: 1 trent Carvedilol (Coreg) 6.25 mg PO BID [facility] Last Admin: 11/14/16 17:30 Dose: 6.25 mg Collagenase (Santyl) 0 gm TOP DAILY [facility] Last Admin: 11/14/16 15:20 Dose: 1 applic Ferrous Sulfate (Feosol Liq) 300 mg PO TID [facility] Last Admin: 11/14/16 17:30 Dose: 300 mg Furosemide (Lasix) 80 mg PO BID [facility] Last Admin: 11/14/16 17:33 Dose: 80 mg Meropenem 250 mg/ Sodium (Chloride) 100 mls @ 100 mls/hr IVPB Q12H [facility] PRN Reason: Protocol Stop: 11/19/16 09:31 Last Admin: 11/14/16 12:31 Dose: 100 mls/hr Daptomycin 420 mg/ Sodium (Chloride) 100 mls @ 200 mls/hr IV QOTHERDAY [facility] Stop: 11/16/16 11:16 Last Admin: 11/13/16 09:15 Dose: 200 mls/hr Insulin Detemir (Levemir) 7 unit SC BID [facility] Last Admin: 11/14/16 17:34 Dose: 7 unit Insulin Human Lispro (Humalog Med) 0 units SC ACHS [facility] PRN Reason: Protocol Last Admin: 11/14/16 17:31 Dose: 1 units Multi-Ingredient Cream (Hydrocerin Cream) 0 ea TOP BID [facility] Last Admin: 11/14/16 17:33 Dose: 1 unit Multivitamins/Minerals (Therapeutic-M Tab) 1 tab PO 0800 [facility] Last Admin: 11/14/16 08:12 Dose: 1 tab Ondansetron HCl (Zofran Inj) 4 mg IVP Q6H PRN PRN Reason: Nausea/Vomiting Pantoprazole Sodium (Protonix Ec Tab) 40 mg PO 0600,1600 [facility] Last Admin: 11/14/16 17:34 Dose: 40 mg Pregabalin (Lyrica) 100 mg PO TID [facility] Last Admin: 11/14/16 17:34 Dose: 100 mg Sodium Bicarbonate (Sodium Bicarbonate Tab) 3,900 mg PO QID [facility] Last Admin: 11/14/16 17:34 Dose: 3,900 mg Zinc Sulfate (Zinc Sulfate 220 Mg Cap) 220 mg PO DAILY [facility] Last Admin: 11/14/16 12:35 Dose: 220 mg - Labs Labs: 11/14/16 06:00 11/14/16 06:00 PT 13.2 Seconds (9.9-11.8) H 11/11/16 05:40 INR 1.22 (0.93-1.08) H 11/11/16 05:40 APTT 32.0 Seconds (23.7-30.8) H 11/11/16 05:40 - Constitutional Appears: Non-toxic, No Acute Distress - Head Exam Head Exam: NORMAL INSPECTION - Eye Exam Eye Exam: Normal appearance. absent: Scleral icterus - ENT Exam ENT Exam: Mucous Membranes Moist - Respiratory Exam Respiratory Exam: absent: Respiratory Distress Additional comments: minimal basal rales; - Cardiovascular Exam Cardiovascular Exam: REGULAR RHYTHM, +S1, +S2 - GI/Abdominal Exam GI & Abdominal Exam: Soft. absent: Distended, Tenderness - Extremities Exam Additional comments: no leg edema; - Neurological Exam Neurological Exam: Alert, Awake - Psychiatric Exam Psychiatric exam: Normal Affect, Normal Mood - Skin Skin Exam: Warm. absent: Cyanosis Assessment and Plan (1) Acute renal failure Assessment & Plan: Off HD since past 5 days, serum creat continues to rise; metabolic acidosis appears to have stabilized on increased bicarb dose but will monitor; relatively euvolemic on exam; lasix changed to 80 mg PO bid; no urgent indication for HD but patient's 24 hr urine for creatinine clearance shows she has minimal renal function and is HD dependent at this time; arrangements should be made for outpatient HD (as acute renal failure); -awaiting renal biopsy results to see if there is any reversible EMMETT on top of CKD; Status: Acute (2) CKD (chronic kidney disease) Assessment & Plan: CKD IV per labs in September; biopsy results likely will show diabetic changes; cannot deem patient ESRD at this point but may very well progess to that point in the very near future; Status: Chronic (3) Anemia Assessment & Plan: Due to iron deficiency and CKD; s/p multiple prbc transfusions; on aranesp, will give another dose this week; Status: Acute (4) Metabolic acidosis Status: Acute (5) Sepsis Assessment & Plan: On dapto and meropenem, dosed for HD; need to be re-dosed after HD treatments; Status: Acute
--- NOTE | 2016-11-14 20:25 | CT ---
PROCEDURE: CT guided left renal cortex biopsy. HISTORY: Diabetes. Severe proteinuria and progression of renals insufficiency. Evaluate for glomerulonephritis. PHYSICIAN(S): Josemanuel Handy MD. TECHNIQUE: The relative risks and indications of the procedure were explained to the patient and consent obtained. The patient was placed prone on the CT scanner and preliminary images through the kidneys obtained. Conscious sedation and monitoring were provided throughout the procedure by a nurse. The visualized renal parenchyma is unremarkable on these noncontrast images.. A left posterior approach was selected and the area prepped and draped in the usual sterile fashion. 1% Xylocaine was used to anesthetize the skin and soft tissues. A 17-gauge guiding needle was advanced into the left renal cortex laterally and inferiorly.. Its position was confirmed with CT. Using coaxial technique, multiple core biopsies were obtained. The postprocedure images show no evidence of significant hemorrhage. IMPRESSION: 1. CT-guided left renal cortex biopsy as described above.
[2016-11-15] MEDS: Pantoprazole 40 mg EC Tab PO SCH ×2 (06:41→16:36)
[2016-11-15] MEDS: Benzocaine/Menthol (Cepacol) Lozenge MT PRN ×5 (06:41→19:51)
[2016-11-15 06:53] LABS: BASO # 0.05 K/mm3 (0.0-2.0); BASO % 0.4 % (0.0-3.0); EOS # 0.4 (0.0-0.7); EOS % 3.1 % (1.5-5.0); GRAN # 9.63 (1.4-6.5); GRAN % 80.5 % (50.0-68.0); HEMATOCRIT 26.2 % (36.0-48.0); LYMPH # 1.1 (1.2-3.4); LYMPH % 9.2 % (22.0-35.0); MEAN CELL VOLUME 91.3 fl (80.0-105.0); MEAN CORPUSCULAR HEMOGLOBIN 27.9 pg (25.0-35.0); MEAN CORPUSCULAR HGB CONC 30.5 g/dl (31.0-37.0); MEAN PLATELET VOLUME 9.6 fl (7.0-11.0); MONO # 0.8 (0.1-0.6); MONO % 6.8 % (1.0-6.0); RED CELL DISTRIBUTION WIDTH 16.7 % (11.5-14.5)
[2016-11-15 07:08] LABS: ALB/GLOB RATIO 0.6 (1.1-1.8); BILIRUBIN,TOTAL 0.5 mg/dL (0.2-1.3); CALCIUM 8.2 mg/dL (8.4-10.5); POTASSIUM 4.1 mmol/L (3.6-5.0); TOTAL PROTEIN 7.9 g/dL (5.8-8.3)
[2016-11-15] MEDS: Insulin Lispro (humaLOG) MEDIUM Coverage SC SCH ×4 (08:21→22:10)
[2016-11-15] MEDS: Multivitamin With Minerals Tab PO SCH (08:21)
[2016-11-15] MEDS: Ferrous Sulfate 300 mg/5 mL Liq UD PO SCH ×3 (10:00→18:30)
[2016-11-15] MEDS: Collagenase 250 Units/gm Ointment(30 gm) TOP SCH (10:29)
[2016-11-15] MEDS: Insulin Detemir 100 units/ml Vial (Levemir) SC SCH ×2 (10:30→18:29)
--- NOTE | 2016-11-15 10:44 | CP.PCM.PN ---
<Pedrito Lobo - Last Filed: 11/15/16 10:39> Subjective - Date & Time of Evaluation Date of Evaluation: 11/15/16 Time of Evaluation: 10:39 - Subjective Subjective: Podiatry Progress Note - Dr. Craven 36 year old female patient seen at bedside POD#15 left foot I&D (DOS: 10/31/16) with mother seen at bedside. Patient is seen resting comfortably in bed, AAOx3 and in NAD. Patient is seen wearing boots at the time of visitation. Patient denies N/V/C/SOB/calf pain. Patient states that she had a low grade fever yesterday. Otherwise, no other pedal complaints at this time. Objective - Vital Signs/Intake and Output Vital Signs (last 24 hours): Temp Pulse Resp BP Pulse Ox 99.0 F 103 H 22 137/87 97 11/15/16 06:00 11/15/16 10:00 11/15/16 06:00 11/15/16 10:00 11/15/16 06:00 Intake and Output: 11/15/16 11/15/16 06:59 18:59 Intake Total 540 600 Output Total 400 200 Balance 140 400 - Medications Medications: Current Medications Acetaminophen (Tylenol 325mg Tab) 650 mg PO Q4 PRN PRN Reason: Pain, Mild (1-3) Artificial Tears (Artificial Tears) 0.2 ml OU DAILY PRN PRN Reason: Dry skin Last Admin: 11/07/16 10:25 Dose: 2 drop Ascorbic Acid (Vitamin C 500 Mg Tab) 500 mg PO BID [facility] Last Admin: 11/15/16 10:00 Dose: 500 mg Benzocaine/Menthol (Cepacol Sore Throat) 1 trent MT Q2H PRN PRN Reason: Sore Throat Last Admin: 11/15/16 10:17 Dose: 1 trent Carvedilol (Coreg) 6.25 mg PO BID [facility] Last Admin: 11/15/16 10:00 Dose: 6.25 mg Collagenase (Santyl) 0 gm TOP DAILY [facility] Last Admin: 11/15/16 10:29 Dose: 1 applic Ferrous Sulfate (Feosol Liq) 300 mg PO TID [facility] Last Admin: 11/15/16 10:00 Dose: 300 mg Furosemide (Lasix) 80 mg PO BID [facility] Last Admin: 11/15/16 10:00 Dose: 80 mg Meropenem 250 mg/ Sodium (Chloride) 100 mls @ 100 mls/hr IVPB Q12H [facility] PRN Reason: Protocol Stop: 11/19/16 09:31 Last Admin: 11/15/16 09:59 Dose: 100 mls/hr Daptomycin 420 mg/ Sodium (Chloride) 100 mls @ 200 mls/hr IV QOTHERDAY [facility] Stop: 11/16/16 11:16 Last Admin: 11/13/16 09:15 Dose: 200 mls/hr Insulin Detemir (Levemir) 7 unit SC BID [facility] Last Admin: 11/15/16 10:30 Dose: 7 unit Insulin Human Lispro (Humalog Med) 0 units SC ACHS [facility] PRN Reason: Protocol Last Admin: 11/15/16 08:21 Dose: 5 units Multi-Ingredient Cream (Hydrocerin Cream) 0 ea TOP BID [facility] Last Admin: 11/14/16 17:33 Dose: 1 unit Multivitamins/Minerals (Therapeutic-M Tab) 1 tab PO 0800 [facility] Last Admin: 11/15/16 08:21 Dose: 1 tab Ondansetron HCl (Zofran Inj) 4 mg IVP Q6H PRN PRN Reason: Nausea/Vomiting Pantoprazole Sodium (Protonix Ec Tab) 40 mg PO 0600,1600 [facility] Last Admin: 11/15/16 06:41 Dose: 40 mg Pregabalin (Lyrica) 100 mg PO TID [facility] Last Admin: 11/15/16 10:00 Dose: 100 mg Sodium Bicarbonate (Sodium Bicarbonate Tab) 3,900 mg PO QID [facility] Last Admin: 11/14/16 22:25 Dose: 3,900 mg Zinc Sulfate (Zinc Sulfate 220 Mg Cap) 220 mg PO DAILY [facility] Last Admin: 11/15/16 10:00 Dose: 220 mg - Labs Labs: 11/15/16 06:10 11/15/16 06:10 PT 13.2 Seconds (9.9-11.8) H 11/11/16 05:40 INR 1.22 (0.93-1.08) H 11/11/16 05:40 APTT 32.0 Seconds (23.7-30.8) H 11/11/16 05:40 - Constitutional Appears: Well, Non-toxic, No Acute Distress - Extremities Exam Additional comments: WoundVAC to left foot appears clean/dry/intact with no leakage detected. Approximately 140 mL drainage seen in canister. VASC: DP and PT pulses palpable 2/4 b/l. TG WNL b/l. No edema noted to left foot. NEURO: Gross sensation absent bilaterally. DERM: LLE = Ulceration #1 noted to left medial heel measuring approximately 3 x 2.8 cm with a granular base and no current drainage noted. Ulceration #2 located distal to ulcer #1 measuring approximately 0.5 x 0.5 cm with a mixture of granular and fibrous base and no drainage noted; no active bleeding noted. It is noted that a linear incision was made during sx opening the communication between ulcers #1 and #2. Ulceration noted to the posterior aspect of left heel with fibrous base, also contiguous with ulcers #1 and #2. All ulcerations + probe to bone, -malodor, -ascending erythema, -purulence at this visit. RLE = Nonblanchable patch of erythema noted to plantarposterior calcaneus. ORTHO: No pain on palpation noted to foot b/l. - Neurological Exam Neurological Exam: Alert, Awake, Oriented x3 - Psychiatric Exam Psychiatric exam: Normal Affect, Normal Mood Assessment and Plan - Assessment and Plan (Free Text) Assessment: 36 year old female 36 year old female PMHx IDDM, renal failure, sepsis, metabolic acidosis, UTI, CKD, anemia 1) POD#10 left foot incision and drainage with wound debridement; 2) Stage 1 pressure ulcer right heel Plan: Patient seen and evaluated at bedside Chart, vitals, labs reviewed - afebrile, WBC=12 Discussed the plan in detail with attending Dr. Craven Left foot wound culture = MRSA Urine culture - yeast Per ID, continue renally-adjusted Daptomycin; patient will need 6 weeks of abx Wound VAC is discontinued. Patient will no longer need WoundVac. Wounds cleansed with saline, dressed with Maxosorb, 4x4, ABD, and kerlix. Heel offloading shoe is to be worn on left foot only when weightbearing. Discussed with patient and nursing offloading boots should be on at all times while in bed. Patient to wear multipodus boots at all times while in bed to prevent progression of pressure ulcer formation R heel. Continue Eucerin cream bilateral LE BID Prognosis for limb salvage poor At this point, no further debridements are considered for left foot; will be seen in followup Podiatry will continue to follow patient while in house <Logan Craven - Last Filed: 11/17/16 11:26> Objective - Vital Signs/Intake and Output Vital Signs (last 24 hours): Temp Pulse Resp BP Pulse Ox 99.5 F 102 H 22 128/88 99 11/17/16 07:41 11/17/16 07:41 11/17/16 07:41 11/17/16 07:41 11/17/16 07:41 Intake and Output: 11/17/16 11/17/16 06:59 18:59 Intake Total 1020 Output Total 400 Balance 620 - Medications Medications: Current Medications Acetaminophen (Tylenol 325mg Tab) 650 mg PO Q4 PRN PRN Reason: Pain, Mild (1-3) Artificial Tears (Artificial Tears) 0.2 ml OU DAILY PRN PRN Reason: Dry skin Last Admin: 11/07/16 10:25 Dose: 2 drop Benzocaine/Menthol (Cepacol Sore Throat) 1 trent MT Q2H PRN PRN Reason: Sore Throat Last Admin: 11/17/16 06:38 Dose: 1 trent Collagenase (Santyl) 0 gm TOP DAILY [facility] Last Admin: 11/16/16 09:34 Dose: Not Given Furosemide (Lasix) 120 mg IVP 0600,1800 [facility] Last Admin: 11/17/16 06:37 Dose: 120 mg Meropenem 250 mg/ Sodium (Chloride) 100 mls @ 100 mls/hr IVPB Q12H [facility] PRN Reason: Protocol Stop: 11/19/16 09:31 Last Admin: 11/16/16 22:16 Dose: 100 mls/hr Fluconazole 100 mg/ (Miscellaneous) 50 mls @ 100 mls/hr IVPB DAILY [facility] PRN Reason: Protocol Last Admin: 11/16/16 10:31 Dose: 100 mls/hr Daptomycin 420 mg/ Sodium (Chloride) 100 mls @ 200 mls/hr IV QOTHERDAY [facility] Stop: 12/15/16 10:31 Insulin Detemir (Levemir) 7 unit SC BID [facility] Last Admin: 11/16/16 18:16 Dose: 7 unit Insulin Human Lispro (Humalog Med) 0 units SC ACHS [facility] PRN Reason: Protocol Last Admin: 11/17/16 08:46 Dose: 5 units Multi-Ingredient Cream (Hydrocerin Cream) 0 ea TOP BID [facility] Last Admin: 11/16/16 18:12 Dose: 1 unit Ondansetron HCl (Zofran Inj) 4 mg IVP Q6H PRN PRN Reason: Nausea/Vomiting Sodium Bicarbonate (Sodium Bicarbonate Tab) 3,900 mg PO QID [facility] Last Admin: 11/15/16 14:34 Dose: 3,900 mg - Labs Labs: 11/17/16 05:00 11/17/16 05:00 PT 13.2 Seconds (9.9-11.8) H 11/11/16 05:40 INR 1.22 (0.93-1.08) H 11/11/16 05:40 APTT 32.0 Seconds (23.7-30.8) H 11/11/16 05:40 Attending/Attestation - Attestation I have personally seen and examined this patient.: Yes I have fully participated in the care of the patient.: Yes I have reviewed all pertinent clinical information, including history, physical exam and plan: Yes
--- NOTE | 2016-11-15 11:53 | RAD ---
HISTORY: CHF, acute renal failure COMPARISON: 11/10/2016 FINDINGS: LUNGS: Bilateral perihilar opacities increased prior examination. Suspicious for pulmonary edema though bilateral pneumonia must also be considered. PLEURA: No significant pleural effusion identified, no pneumothorax apparent. CARDIOVASCULAR: Normal heart size. Right internal jugular multi lumen central venous catheter. OSSEOUS STRUCTURES: No significant abnormalities. VISUALIZED UPPER ABDOMEN: Normal. OTHER FINDINGS: None. IMPRESSION: Increased bilateral perihilar opacities. Suspicious for congestive heart failure with pulmonary edema of the bilateral pneumonia must also be considered.
--- NOTE | 2016-11-15 12:05 | CP.PCM.PN ---
<Ata Ackerman - Last Filed: 11/15/16 11:58> Subjective - Date & Time of Evaluation Date of Evaluation: 11/15/16 Time of Evaluation: 10:25 - Subjective Subjective: Subjective: Patient seen and examined at bedside. No acute overnight events. Patient resting comfortably in bed. Does not complain of any complications s/p renal biopsy. Offers no new complaints at this time. Denies f/c/p/sob/abdominal pain/n /v/diarrhea/constipation/urinary symptoms. Physical Exam: - Constitutional Appears: NAD - Head Exam Head Exam: ATRAUMATIC, NORMAL INSPECTION, NORMOCEPHALIC - Eye Exam Eye Exam: EOMI, Normal appearance, PERRL Pupil Exam: NORMAL ACCOMODATION, PERRL - ENT Exam ENT Exam: Mucous Membranes Moist, Normal Exam - Neck Exam Neck exam: Positive for: Normal Inspection - Respiratory Exam Respiratory Exam: Clear to Auscultation Bilateral, NORMAL BREATHING PATTERN - Cardiovascular Exam Cardiovascular Exam: REGULAR RHYTHM, +S1, +S2 - GI/Abdominal Exam GI & Abdominal Exam: Normal Bowel Sounds, Soft. absent: Tenderness - Extremities Exam Extremities exam: left foot bandaged - Back Exam Back exam: CVA tenderness (L), CVA tenderness (R) - Neurological Exam Neurological exam: Alert, Oriented x3 - Psychiatric Exam Psychiatric exam: Normal Affect, Normal Mood Assessment: 36yo F PMH DM, HTN, HLD, RLE dvt and LLE ulcer who presents w/ Septic shock 2/2 pyelonephritis 2/2 untreated UTI. EMMETT still present, improving on dialysis. Metabolic acidosis resolved. Also found to be anemic, likely due to chronic disease (diabetes). Found to have UTI and LLE ulcer growing MRSA. MRI shows osteomyelitis of L calcaneus and diffuse plantar proximal aspect of L foot. s/p Merrem x6d. Patient is s/p debridement. Plan: Septic Shock - resolved, BP stable - likely 2/2 osteomyelitis vs pyelo vs untreated UT - ID consulted, recs appreciated- continue daptomycin and meropenem - L foot wound cx growing MRSA and corynebacterium - Ucx growing MRSA - leukocytosis still present, but improving LLE ulcer - s/p I&D - wound care per podiatry- wound vac will be removed and the patient can follow with wound care when discharged. will continue follow while inpatient. - L Foot cx growing MRSA and corynbacterium - MRI L foot showed osteomyelitis of L calcaneus and diffuse plantar proximal aspect of L foot-continue daptomycin and meropenem - continue zinc, multiple vitamin tablet Worsening CKD - Cr elevated from yesterday, Dr. Mohan ignacios- renal biopsy completed- awaiting results and further recommendations - Nephrology consulted, recs appreciated- long-term dialysis will be required, patient will likely need tunneled catheter placement for director long term care dialysis - NAGMA noted- likely 2/2 diarrhea vs RTA IV; nephro recs- continue sodium bicarbonate tabs - RIJ in place Anemia likely 2/2 chronic dz - s/p 7u total pRBC transfused - Hgb 8.0 noted - likely due to chronic kidney 2/2 uncontrolled DM2 - Dr. Weaver consulted- appreciate recs- note reviewed, patient does not want her care at this time as patient has Dr. Granados outpatient, as per note the patient claims she already completed a bone marrow biopsy and was recommended to take iron - kappa/lambda are elevated Hx DM -glucose levels noted- BG 265- continue with levemir 7 BID - ISS med Peripheral Neuropathy - likely 2/2 to DM - Lyrica 100 TID Cardiomyopathy - ECHO shows EF of 35% - Cardioogy consulted, Dr. Ryan- appreciate recommendations - c/w Coreg 6.25 BID an lasix PPX - protonix - no scds due to foot infection, no lovenox due to renal function, no heparin due to decreasing H/H Dispo: - home vs [facility] with dialysis capability - multiple attempts made to contact patients PMD and student teaching coordinator- awaiting call back Patient seen, examined, case discussed with, and plan approved by attending physician, Dr Talley. Objective - Vital Signs/Intake and Output Vital Signs (last 24 hours): Temp Pulse Resp BP Pulse Ox 99.0 F 103 H 22 137/87 97 11/15/16 06:00 11/15/16 10:00 11/15/16 06:00 11/15/16 10:00 11/15/16 06:00 Intake and Output: 11/15/16 11/15/16 06:59 18:59 Intake Total 540 600 Output Total 400 200 Balance 140 400 - Medications Medications: Current Medications Acetaminophen (Tylenol 325mg Tab) 650 mg PO Q4 PRN PRN Reason: Pain, Mild (1-3) Artificial Tears (Artificial Tears) 0.2 ml OU DAILY PRN PRN Reason: Dry skin Last Admin: 11/07/16 10:25 Dose: 2 drop Ascorbic Acid (Vitamin C 500 Mg Tab) 500 mg PO BID [facility] Last Admin: 11/15/16 10:00 Dose: 500 mg Benzocaine/Menthol (Cepacol Sore Throat) 1 trent MT Q2H PRN PRN Reason: Sore Throat Last Admin: 11/15/16 10:17 Dose: 1 trent Carvedilol (Coreg) 6.25 mg PO BID [facility] Last Admin: 11/15/16 10:00 Dose: 6.25 mg Collagenase (Santyl) 0 gm TOP DAILY [facility] Last Admin: 11/15/16 10:29 Dose: 1 applic Ferrous Sulfate (Feosol Liq) 300 mg PO TID [facility] Last Admin: 11/15/16 10:00 Dose: 300 mg Furosemide (Lasix) 80 mg PO BID [facility] Last Admin: 11/15/16 10:00 Dose: 80 mg Meropenem 250 mg/ Sodium (Chloride) 100 mls @ 100 mls/hr IVPB Q12H [facility] PRN Reason: Protocol Stop: 11/19/16 09:31 Last Admin: 11/15/16 09:59 Dose: 100 mls/hr Daptomycin 420 mg/ Sodium (Chloride) 100 mls @ 200 mls/hr IV QOTHERDAY [facility] Stop: 11/16/16 11:16 Last Admin: 11/13/16 09:15 Dose: 200 mls/hr Insulin Detemir (Levemir) 7 unit SC BID [facility] Last Admin: 11/15/16 10:30 Dose: 7 unit Insulin Human Lispro (Humalog Med) 0 units SC ACHS [facility] PRN Reason: Protocol Last Admin: 11/15/16 08:21 Dose: 5 units Multi-Ingredient Cream (Hydrocerin Cream) 0 ea TOP BID [facility] Last Admin: 11/14/16 17:33 Dose: 1 unit Multivitamins/Minerals (Therapeutic-M Tab) 1 tab PO 0800 [facility] Last Admin: 11/15/16 08:21 Dose: 1 tab Ondansetron HCl (Zofran Inj) 4 mg IVP Q6H PRN PRN Reason: Nausea/Vomiting Pantoprazole Sodium (Protonix Ec Tab) 40 mg PO 0600,1600 [facility] Last Admin: 11/15/16 06:41 Dose: 40 mg Pregabalin (Lyrica) 100 mg PO TID [facility] Last Admin: 11/15/16 10:00 Dose: 100 mg Sodium Bicarbonate (Sodium Bicarbonate Tab) 3,900 mg PO QID [facility] Last Admin: 11/14/16 22:25 Dose: 3,900 mg Zinc Sulfate (Zinc Sulfate 220 Mg Cap) 220 mg PO DAILY [facility] Last Admin: 11/15/16 10:00 Dose: 220 mg - Labs Labs: 11/15/16 06:10 11/15/16 06:10 PT 13.2 Seconds (9.9-11.8) H 11/11/16 05:40 INR 1.22 (0.93-1.08) H 11/11/16 05:40 APTT 32.0 Seconds (23.7-30.8) H 11/11/16 05:40 <Laquita Talley - Last Filed: 11/15/16 15:37> Objective - Vital Signs/Intake and Output Vital Signs (last 24 hours): Temp Pulse Resp BP Pulse Ox 99.0 F 103 H 22 137/87 97 11/15/16 06:00 11/15/16 10:00 11/15/16 06:00 11/15/16 10:00 11/15/16 06:00 Intake and Output: 11/15/16 11/15/16 06:59 18:59 Intake Total 540 600 Output Total 400 200 Balance 140 400 - Medications Medications: Current Medications Acetaminophen (Tylenol 325mg Tab) 650 mg PO Q4 PRN PRN Reason: Pain, Mild (1-3) Artificial Tears (Artificial Tears) 0.2 ml OU DAILY PRN PRN Reason: Dry skin Last Admin: 11/07/16 10:25 Dose: 2 drop Ascorbic Acid (Vitamin C 500 Mg Tab) 500 mg PO BID [facility] Last Admin: 11/15/16 10:00 Dose: 500 mg Benzocaine/Menthol (Cepacol Sore Throat) 1 trent MT Q2H PRN PRN Reason: Sore Throat Last Admin: 11/15/16 14:34 Dose: 1 trent Carvedilol (Coreg) 6.25 mg PO BID [facility] Last Admin: 11/15/16 10:00 Dose: 6.25 mg Collagenase (Santyl) 0 gm TOP DAILY [facility] Last Admin: 11/15/16 10:29 Dose: 1 applic Ferrous Sulfate (Feosol Liq) 300 mg PO TID [facility] Last Admin: 11/15/16 14:36 Dose: 300 mg Furosemide (Lasix) 80 mg PO BID [facility] Last Admin: 11/15/16 10:00 Dose: 80 mg Meropenem 250 mg/ Sodium (Chloride) 100 mls @ 100 mls/hr IVPB Q12H [facility] PRN Reason: Protocol Stop: 11/19/16 09:31 Last Admin: 11/15/16 09:59 Dose: 100 mls/hr Daptomycin 420 mg/ Sodium (Chloride) 100 mls @ 200 mls/hr IV QOTHERDAY [facility] Stop: 11/16/16 11:16 Last Admin: 11/15/16 12:46 Dose: 200 mls/hr Insulin Detemir (Levemir) 7 unit SC BID [facility] Last Admin: 11/15/16 10:30 Dose: 7 unit Insulin Human Lispro (Humalog Med) 0 units SC ACHS [facility] PRN Reason: Protocol Last Admin: 11/15/16 12:46 Dose: 1 units Multi-Ingredient Cream (Hydrocerin Cream) 0 ea TOP BID [facility] Last Admin: 11/15/16 13:09 Dose: 1 unit Multivitamins/Minerals (Therapeutic-M Tab) 1 tab PO 0800 [facility] Last Admin: 11/15/16 08:21 Dose: 1 tab Ondansetron HCl (Zofran Inj) 4 mg IVP Q6H PRN PRN Reason: Nausea/Vomiting Pantoprazole Sodium (Protonix Ec Tab) 40 mg PO 0600,1600 [facility] Last Admin: 11/15/16 06:41 Dose: 40 mg Pregabalin (Lyrica) 100 mg PO TID [facility] Last Admin: 11/15/16 14:34 Dose: 100 mg Sodium Bicarbonate (Sodium Bicarbonate Tab) 3,900 mg PO QID [facility] Last Admin: 11/15/16 14:34 Dose: 3,900 mg Zinc Sulfate (Zinc Sulfate 220 Mg Cap) 220 mg PO DAILY [facility] Last Admin: 11/15/16 10:00 Dose: 220 mg - Labs Labs: 11/15/16 06:10 11/15/16 06:10 PT 13.2 Seconds (9.9-11.8) H 11/11/16 05:40 INR 1.22 (0.93-1.08) H 11/11/16 05:40 APTT 32.0 Seconds (23.7-30.8) H 11/11/16 05:40 Attending/Attestation - Attestation I have personally seen and examined this patient.: Yes I have fully participated in the care of the patient.: Yes I have reviewed all pertinent clinical information, including history, physical exam and plan: Yes Notes (Text): 11/15/16 15:24 attending note; Patient seen and examined with the resident. Patient is a 36 year old female with history of IDDM, HTN, dyslipidemia, wheel chair bound, 2 amputated toes of left leg and chronic LE ulcer who presented with severe sepsis secondary to acute pyelonephritis, osteomyelitis of L foot, Acute on chronic kidney disease and anemia. patient is afebrile and nontoxic. Repeat Blood culture, urine culture is negative. left calcaneal osteomyelitis; on Meropenem and daptmycin. Need s 6 weeks of IV antibiotics. continue wound vac. anemia is multifactorial. hemoglobin stable at 8.0. Patient refused hematology/ GI work up. s/p renal biopsy today. patient refusing long-term dialysis. Creatinine is 6.3 today. cardiomyopathy: on Coreg. Long-term prognosis is poor secondary to multiple medical problems and noncompliance with follow-up. case discussed with adult protective caseworker for discharge planning. No insurance is active at this point. Upon discharge patient will follow up with .
[2016-11-15] MEDS: Hydrocerin(120 gm) TOP SCH ×2 (13:09→18:31)
--- NOTE | 2016-11-15 18:07 | CP.PCM.PN ---
Subjective - Date & Time of Evaluation Date of Evaluation: 11/15/16 Time of Evaluation: 11:10 - Subjective Subjective: No fevers, not in distress. Objective - Vital Signs/Intake and Output Vital Signs (last 24 hours): Temp Pulse Resp BP Pulse Ox 99.0 F 103 H 22 137/87 97 11/15/16 06:00 11/15/16 06:00 11/15/16 06:00 11/15/16 06:00 11/15/16 06:00 Intake and Output: 11/15/16 11/15/16 06:59 18:59 Intake Total 540 600 Output Total 400 200 Balance 140 400 - Medications Medications: Current Medications Acetaminophen (Tylenol 325mg Tab) 650 mg PO Q4 PRN PRN Reason: Pain, Mild (1-3) Artificial Tears (Artificial Tears) 0.2 ml OU DAILY PRN PRN Reason: Dry skin Last Admin: 11/07/16 10:25 Dose: 2 drop Ascorbic Acid (Vitamin C 500 Mg Tab) 500 mg PO BID [facility] Last Admin: 11/14/16 17:35 Dose: 500 mg Benzocaine/Menthol (Cepacol Sore Throat) 1 trent MT Q2H PRN PRN Reason: Sore Throat Last Admin: 11/15/16 06:41 Dose: 1 trent Carvedilol (Coreg) 6.25 mg PO BID [facility] Last Admin: 11/14/16 17:30 Dose: 6.25 mg Collagenase (Santyl) 0 gm TOP DAILY [facility] Last Admin: 11/14/16 15:20 Dose: 1 applic Ferrous Sulfate (Feosol Liq) 300 mg PO TID [facility] Last Admin: 11/14/16 17:30 Dose: 300 mg Furosemide (Lasix) 80 mg PO BID [facility] Last Admin: 11/14/16 17:33 Dose: 80 mg Meropenem 250 mg/ Sodium (Chloride) 100 mls @ 100 mls/hr IVPB Q12H [facility] PRN Reason: Protocol Stop: 11/19/16 09:31 Last Admin: 11/14/16 22:26 Dose: 100 mls/hr Daptomycin 420 mg/ Sodium (Chloride) 100 mls @ 200 mls/hr IV QOTHERDAY [facility] Stop: 11/16/16 11:16 Last Admin: 11/13/16 09:15 Dose: 200 mls/hr Insulin Detemir (Levemir) 7 unit SC BID [facility] Last Admin: 11/14/16 17:34 Dose: 7 unit Insulin Human Lispro (Humalog Med) 0 units SC ACHS [facility] PRN Reason: Protocol Last Admin: 11/15/16 08:21 Dose: 5 units Multi-Ingredient Cream (Hydrocerin Cream) 0 ea TOP BID [facility] Last Admin: 11/14/16 17:33 Dose: 1 unit Multivitamins/Minerals (Therapeutic-M Tab) 1 tab PO 0800 [facility] Last Admin: 11/15/16 08:21 Dose: 1 tab Ondansetron HCl (Zofran Inj) 4 mg IVP Q6H PRN PRN Reason: Nausea/Vomiting Pantoprazole Sodium (Protonix Ec Tab) 40 mg PO 0600,1600 [facility] Last Admin: 11/15/16 06:41 Dose: 40 mg Pregabalin (Lyrica) 100 mg PO TID [facility] Last Admin: 11/14/16 17:34 Dose: 100 mg Sodium Bicarbonate (Sodium Bicarbonate Tab) 3,900 mg PO QID [facility] Last Admin: 11/14/16 22:25 Dose: 3,900 mg Zinc Sulfate (Zinc Sulfate 220 Mg Cap) 220 mg PO DAILY [facility] Last Admin: 11/14/16 12:35 Dose: 220 mg - Labs Labs: 11/15/16 06:10 11/15/16 06:10 PT 13.2 Seconds (9.9-11.8) H 11/11/16 05:40 INR 1.22 (0.93-1.08) H 11/11/16 05:40 APTT 32.0 Seconds (23.7-30.8) H 11/11/16 05:40 - Constitutional Appears: Non-toxic, No Acute Distress - Head Exam Head Exam: NORMAL INSPECTION - Neck Exam Neck Exam: absent: Meningismus - Respiratory Exam Respiratory Exam: Decreased Breath Sounds - Cardiovascular Exam Cardiovascular Exam: +S1, +S2 - GI/Abdominal Exam GI & Abdominal Exam: Soft. absent: Tenderness Assessment and Plan - Assessment and Plan (Free Text) Plan: Assessment Severe sepsis with acute renal failure due to acute pyelonephritis, with MRSA in the urine as well as left foot wound infection/abscess with MRSA, MRI showing osteomyelitis, S/P I and D POD #11; new onset SIRS, without evidence of new onset sepsis DM with diabetic neuropathy HTN history of right DVT bilateral foot ulcers Plan on renally-adjusted IV Daptomycin and Merrem (day 6) - will d/c Merrem by tomorrow; repeat blood cx and urine negative are negative; PCT is 0.52, CXR shows decreased opacity from previous CXR MRI of left foot showing osteomyelitis - will need 6 weeks of antibiotics 2D echo does not show vegetations will need weekly ESR, CRP, CBC, CMP, CPK levels while on antibiotics; most recent CPK is <20 (2016) - will order ESR, CRP and CPK today will continue to monitor clinically kidney biopsy is showing probable pyelonephritis - the only organisms isolated were MRSA and yeast - will ask microlab to identify yeast in the urine and will start DIflucan - discussed with Dr. Preston
--- NOTE | 2016-11-15 20:13 | CP.PCM.PN ---
Subjective - Date & Time of Evaluation Date of Evaluation: 11/15/16 Time of Evaluation: 11:00 - Subjective Subjective: 36 yo F w/ DM, CKD, bedbound since several months, admitted with L foot OM and acute renal failure; Patient denies any shortness of breath; continues to demand to be put on bicarb drip for her acidosis despite explaining to her that she will get more volume overloaded; Objective - Vital Signs/Intake and Output Vital Signs (last 24 hours): Temp Pulse Resp BP Pulse Ox 99.9 F H 105 H 20 133/93 H 96 11/15/16 16:54 11/15/16 18:29 11/15/16 16:54 11/15/16 18:30 11/15/16 16:54 Intake and Output: 11/15/16 11/16/16 18:59 06:59 Intake Total 600 Output Total 200 Balance 400 - Medications Medications: Current Medications Acetaminophen (Tylenol 325mg Tab) 650 mg PO Q4 PRN PRN Reason: Pain, Mild (1-3) Artificial Tears (Artificial Tears) 0.2 ml OU DAILY PRN PRN Reason: Dry skin Last Admin: 11/07/16 10:25 Dose: 2 drop Ascorbic Acid (Vitamin C 500 Mg Tab) 500 mg PO BID [facility] Last Admin: 11/15/16 18:29 Dose: 500 mg Benzocaine/Menthol (Cepacol Sore Throat) 1 trent MT Q2H PRN PRN Reason: Sore Throat Last Admin: 11/15/16 19:51 Dose: 1 trent Carvedilol (Coreg) 6.25 mg PO BID [facility] Last Admin: 11/15/16 18:29 Dose: 6.25 mg Collagenase (Santyl) 0 gm TOP DAILY [facility] Last Admin: 11/15/16 10:29 Dose: 1 applic Ferrous Sulfate (Feosol Liq) 300 mg PO TID [facility] Last Admin: 11/15/16 18:30 Dose: 300 mg Furosemide (Lasix) 100 mg IVP 0600,1800 [facility] Last Admin: 11/15/16 18:30 Dose: 100 mg Furosemide (Lasix) 20 mg IVP 0600,1800 [facility] Last Admin: 11/15/16 18:30 Dose: 20 mg Meropenem 250 mg/ Sodium (Chloride) 100 mls @ 100 mls/hr IVPB Q12H [facility] PRN Reason: Protocol Stop: 11/19/16 09:31 Last Admin: 11/15/16 09:59 Dose: 100 mls/hr Daptomycin 420 mg/ Sodium (Chloride) 100 mls @ 200 mls/hr IV QOTHERDAY [facility] Stop: 11/16/16 11:16 Last Admin: 11/15/16 12:46 Dose: 200 mls/hr Fluconazole 100 mg/ (Miscellaneous) 50 mls @ 100 mls/hr IVPB DAILY [facility] PRN Reason: Protocol Insulin Detemir (Levemir) 7 unit SC BID [facility] Last Admin: 11/15/16 18:29 Dose: 7 unit Insulin Human Lispro (Humalog Med) 0 units SC ACHS [facility] PRN Reason: Protocol Last Admin: 11/15/16 16:36 Dose: 3 units Multi-Ingredient Cream (Hydrocerin Cream) 0 ea TOP BID [facility] Last Admin: 11/15/16 18:31 Dose: 1 unit Multivitamins/Minerals (Therapeutic-M Tab) 1 tab PO 0800 [facility] Last Admin: 11/15/16 08:21 Dose: 1 tab Ondansetron HCl (Zofran Inj) 4 mg IVP Q6H PRN PRN Reason: Nausea/Vomiting Pantoprazole Sodium (Protonix Ec Tab) 40 mg PO 0600,1600 [facility] Last Admin: 11/15/16 16:36 Dose: 40 mg Pregabalin (Lyrica) 100 mg PO TID [facility] Last Admin: 11/15/16 18:29 Dose: 100 mg Sodium Bicarbonate (Sodium Bicarbonate Tab) 3,900 mg PO QID [facility] Last Admin: 11/15/16 14:34 Dose: 3,900 mg Zinc Sulfate (Zinc Sulfate 220 Mg Cap) 220 mg PO DAILY [facility] Last Admin: 11/15/16 10:00 Dose: 220 mg - Labs Labs: 11/15/16 06:10 11/15/16 06:10 PT 13.2 Seconds (9.9-11.8) H 11/11/16 05:40 INR 1.22 (0.93-1.08) H 11/11/16 05:40 APTT 32.0 Seconds (23.7-30.8) H 11/11/16 05:40 - Constitutional Appears: Non-toxic, No Acute Distress - Head Exam Head Exam: NORMAL INSPECTION - Eye Exam Eye Exam: Normal appearance. absent: Scleral icterus - ENT Exam ENT Exam: Mucous Membranes Moist - Respiratory Exam Respiratory Exam: Clear to Ausculation Bilateral, NORMAL BREATHING PATTERN - Cardiovascular Exam Cardiovascular Exam: REGULAR RHYTHM, +S1, +S2 - GI/Abdominal Exam GI & Abdominal Exam: Soft. absent: Distended, Tenderness - Extremities Exam Additional comments: no leg edema; - Neurological Exam Neurological Exam: Alert, Awake - Psychiatric Exam Psychiatric exam: Agitated - Skin Skin Exam: Warm. absent: Cyanosis Assessment and Plan (1) Acute renal failure Assessment & Plan: EMMETT on CKD; oliguria with some response to diuretics; acidosis worsening despite being on high dose of PO sodium bicarb, now needing to hold due to volume overload on CXR; patient was again explained that she will need HD for the time being until acute component of her renal failure can be corrected; last HD 6 days ago, planning for next session tomorrow (despite patient reluctance to get HD and her being in denial regarding need for HD, she hasn't yet refused it); recommend temp HD cath changed to tunneled cath to avoid infection; s/p Renal biopsy yesterday; preliminary results discussed with pathologist and is showing neutrophilic interstitial inflammation consistent with acute pyelonephritis; discussed with ID [employer] distribution consultant who will start diflucan pending speciation of yeast in urine; will also await full biopsy report; Status: Acute (2) CKD (chronic kidney disease) Assessment & Plan: Biopsy results consistent with diabetic nephropathy; only with about one quarter of glomeruli with global sclerosis, therefore, if acute component of renal failure can be corrected, patient should be able to come off HD at some point; -will need shelter management of diabetic kidney disease including tight glycemic control and MIHIR inhibitor/ARB (but not until EMMETT resolved); Status: Chronic (3) Anemia Assessment & Plan: Secondary to iron deficiency and CKD; will give aranesp 60 mcg on HD tomorrow; Status: Acute (4) Metabolic acidosis Assessment & Plan: On sodium bicarb 3900 mg qid; explained to patient that we are trying PO bicarb to see if she will be able to deal with acidosis as outpatient (without HD as she is reluctant to continue with HD) and that giving bicarb drip is only a temporizing measure that is not needed at this point; anyway, holding bicarb tabs as mentioned above; will correct acidosis with HD tomorrow; Status: Acute (5) Sepsis Assessment & Plan: On dapto and meropenem, dosed for HD; need to be re-dosed after HD session; starting diflucan, no renal dose adjustment needed; Status: Acute (6) CHF (congestive heart failure) Assessment & Plan: CHF w/ severe systolic dysfunction; currently is in heart failure with pulmonary edema on CXR despite patient being asymptomatic and in no respiratory distress; will dialyze tomorrow; escalating IV lasix to 120 mg q12h till then; Status: Acute
[2016-11-16] MEDS: Pantoprazole 40 mg EC Tab PO SCH ×2 (06:56→17:00)
[2016-11-16] MEDS: Benzocaine/Menthol (Cepacol) Lozenge MT PRN ×4 (07:08→18:33)
--- NOTE | 2016-11-16 08:17 | CP.PCM.PN ---
<Faisal Jacobson - Last Filed: 11/17/16 18:53> Subjective - Date & Time of Evaluation Date of Evaluation: 11/16/16 Time of Evaluation: 08:20 - Subjective Subjective: Podiatry Progress Note - Dr. Craven 36 year old female patient seen at bedside POD#16 left foot I&D (DOS: 10/31/16) with mother seen at bedside. Patient is seen resting comfortably in bed, AAOx3 and in NAD. Patient is seen wearing multipodus boots at the time of visitation. Patient denies N/V/C/SOB/calf pain. No pedal complaints at this time. Objective - Vital Signs/Intake and Output Vital Signs (last 24 hours): Temp Pulse Resp BP Pulse Ox 99.9 F H 105 H 20 132/88 96 11/15/16 16:54 11/15/16 18:29 11/15/16 16:54 11/16/16 06:51 11/15/16 16:54 Intake and Output: 11/16/16 11/16/16 06:59 18:59 Intake Total 540 Output Total 600 Balance -60 - Medications Medications: Current Medications Acetaminophen (Tylenol 325mg Tab) 650 mg PO Q4 PRN PRN Reason: Pain, Mild (1-3) Artificial Tears (Artificial Tears) 0.2 ml OU DAILY PRN PRN Reason: Dry skin Last Admin: 11/07/16 10:25 Dose: 2 drop Ascorbic Acid (Vitamin C 500 Mg Tab) 500 mg PO BID [facility] Last Admin: 11/15/16 18:29 Dose: 500 mg Benzocaine/Menthol (Cepacol Sore Throat) 1 trent MT Q2H PRN PRN Reason: Sore Throat Last Admin: 11/16/16 07:08 Dose: 1 trent Carvedilol (Coreg) 6.25 mg PO BID [facility] Last Admin: 11/15/16 18:29 Dose: 6.25 mg Collagenase (Santyl) 0 gm TOP DAILY [facility] Last Admin: 11/15/16 10:29 Dose: 1 applic Ferrous Sulfate (Feosol Liq) 300 mg PO TID [facility] Last Admin: 11/15/16 18:30 Dose: 300 mg Furosemide (Lasix) 100 mg IVP 0600,1800 [facility] Last Admin: 11/16/16 06:50 Dose: 100 mg Furosemide (Lasix) 20 mg IVP 0600,1800 [facility] Last Admin: 11/16/16 06:51 Dose: 20 mg Meropenem 250 mg/ Sodium (Chloride) 100 mls @ 100 mls/hr IVPB Q12H [facility] PRN Reason: Protocol Stop: 11/19/16 09:31 Last Admin: 11/15/16 22:00 Dose: 100 mls/hr Daptomycin 420 mg/ Sodium (Chloride) 100 mls @ 200 mls/hr IV QOTHERDAY [facility] Stop: 11/16/16 11:16 Last Admin: 11/15/16 12:46 Dose: 200 mls/hr Fluconazole 100 mg/ (Miscellaneous) 50 mls @ 100 mls/hr IVPB DAILY [facility] PRN Reason: Protocol Insulin Detemir (Levemir) 7 unit SC BID [facility] Last Admin: 11/15/16 18:29 Dose: 7 unit Insulin Human Lispro (Humalog Med) 0 units SC ACHS [facility] PRN Reason: Protocol Last Admin: 11/15/16 22:10 Dose: Not Given Multi-Ingredient Cream (Hydrocerin Cream) 0 ea TOP BID [facility] Last Admin: 11/15/16 18:31 Dose: 1 unit Multivitamins/Minerals (Therapeutic-M Tab) 1 tab PO 0800 [facility] Last Admin: 11/15/16 08:21 Dose: 1 tab Ondansetron HCl (Zofran Inj) 4 mg IVP Q6H PRN PRN Reason: Nausea/Vomiting Pantoprazole Sodium (Protonix Ec Tab) 40 mg PO 0600,1600 [facility] Last Admin: 11/16/16 06:56 Dose: 40 mg Pregabalin (Lyrica) 100 mg PO TID [facility] Last Admin: 11/15/16 18:29 Dose: 100 mg Sodium Bicarbonate (Sodium Bicarbonate Tab) 3,900 mg PO QID [facility] Last Admin: 11/15/16 14:34 Dose: 3,900 mg Zinc Sulfate (Zinc Sulfate 220 Mg Cap) 220 mg PO DAILY [facility] Last Admin: 11/15/16 10:00 Dose: 220 mg - Labs Labs: 11/15/16 06:10 11/15/16 06:10 PT 13.2 Seconds (9.9-11.8) H 11/11/16 05:40 INR 1.22 (0.93-1.08) H 11/11/16 05:40 APTT 32.0 Seconds (23.7-30.8) H 11/11/16 05:40 - Constitutional Appears: Well, Non-toxic, No Acute Distress - Extremities Exam Additional comments: Left leg focused. Dressings are clean, dry, and intact. VASC: DP and PT pulses palpable 2/4 b/l. TG WNL b/l. No edema noted to left foot. NEURO: Gross sensation absent bilaterally. DERM: LLE = One uniform full thickness ulceration noted to left medial heel measuring approximately 3.6 x 2.8 x 1.1 cm with wound base appearing as a granular ring and fibrotic core no active drainage noted. No acute signs of infection. RLE = Nonblanchable patch of erythema noted to plantarposterior calcaneus. ORTHO: No pain on palpation noted to foot b/l. Assessment and Plan - Assessment and Plan (Free Text) Assessment: 36 year old female 36 year old female PMHx IDDM, renal failure, sepsis, metabolic acidosis, UTI, CKD, anemia 1) POD#16 left foot incision and drainage with wound debridement; 2) Stage 1 pressure ulcer right heel Plan: Patient seen and evaluated at bedside Chart, vitals, labs reviewed - afebrile, WBC=12.4 Discussed the plan in detail with attending Dr. Craven Left foot wound culture = MRSA Urine culture - yeast Per ID, continue renally-adjusted Daptomycin; patient will need 6 weeks of abx Wounds cleansed with saline, dressed with Maxosorb, 4x4, ABD, and kerlix. Patient to wear multipodus boots at all times while in bed to prevent progression of pressure ulcer formation R heel. Continue Eucerin cream bilateral LE BID Prognosis for limb salvage poor At this point, no further debridements are considered for left foot; will be seen in followup Podiatry will continue to follow patient while in house <Logan Craven - Last Filed: 11/18/16 09:35> Objective - Vital Signs/Intake and Output Vital Signs (last 24 hours): Temp Pulse Resp BP Pulse Ox 99.1 F 105 H 22 125/81 99 11/18/16 08:19 11/18/16 08:19 11/18/16 08:19 11/18/16 08:19 11/18/16 08:19 Intake and Output: 11/18/16 11/18/16 06:59 18:59 Intake Total 500 480 Output Total 500 375 Balance 0 105 - Medications Medications: Current Medications Acetaminophen (Tylenol 325mg Tab) 650 mg PO Q4 PRN PRN Reason: Pain, Mild (1-3) Artificial Tears (Artificial Tears) 0.2 ml OU DAILY PRN PRN Reason: Dry skin Last Admin: 11/07/16 10:25 Dose: 2 drop Benzocaine/Menthol (Cepacol Sore Throat) 1 trent MT BID PRN PRN Reason: Sore Throat Last Admin: 11/18/16 05:35 Dose: 1 trent Collagenase (Santyl) 0 gm TOP DAILY [facility] Last Admin: 11/18/16 03:00 Dose: Not Given Furosemide (Lasix) 120 mg IVP 0600,1800 [facility] Last Admin: 11/18/16 05:30 Dose: 120 mg Fluconazole 100 mg/ (Miscellaneous) 50 mls @ 100 mls/hr IVPB DAILY [facility] PRN Reason: Protocol Last Admin: 11/17/16 11:57 Dose: 100 mls/hr Daptomycin 420 mg/ Sodium (Chloride) 100 mls @ 200 mls/hr IV QOTHERDAY [facility] Stop: 12/15/16 10:31 Last Admin: 11/17/16 11:56 Dose: 200 mls/hr Insulin Detemir (Levemir) 7 unit SC BID [facility] Last Admin: 11/17/16 18:24 Dose: 7 unit Insulin Human Lispro (Humalog Med) 0 units SC ACHS [facility] PRN Reason: Protocol Multi-Ingredient Cream (Hydrocerin Cream) 0 ea TOP BID [facility] Last Admin: 11/18/16 03:00 Dose: Not Given Ondansetron HCl (Zofran Inj) 4 mg IVP Q6H PRN PRN Reason: Nausea/Vomiting Sodium Bicarbonate (Sodium Bicarbonate Tab) 3,900 mg PO QID [facility] Last Admin: 11/15/16 14:34 Dose: 3,900 mg - Labs Labs: 11/18/16 06:40 11/18/16 06:40 PT 13.2 Seconds (9.9-11.8) H 11/11/16 05:40 INR 1.22 (0.93-1.08) H 11/11/16 05:40 APTT 32.0 Seconds (23.7-30.8) H 11/11/16 05:40 Attending/Attestation - Attestation I have personally seen and examined this patient.: Yes I have fully participated in the care of the patient.: Yes I have reviewed all pertinent clinical information, including history, physical exam and plan: Yes
[2016-11-16] MEDS: Insulin Detemir 100 units/ml Vial (Levemir) SC SCH ×2 (09:15→18:16)
[2016-11-16] MEDS: Insulin Lispro (humaLOG) MEDIUM Coverage SC SCH ×4 (09:15→22:16)
[2016-11-16] MEDS: Multivitamin With Minerals Tab PO SCH (09:16)
[2016-11-16] MEDS: Ferrous Sulfate 300 mg/5 mL Liq UD PO SCH (09:17)
[2016-11-16] MEDS: Hydrocerin(120 gm) TOP SCH ×2 (09:33→18:12)
[2016-11-16] MEDS: Collagenase 250 Units/gm Ointment(30 gm) TOP SCH (09:34)
[2016-11-16 10:07] LABS: BASO # 0.08 K/mm3 (0.0-2.0); BASO % 0.6 % (0.0-3.0); EOS # 0.4 (0.0-0.7); EOS % 2.8 % (1.5-5.0); GRAN # 9.5 (1.4-6.5); HEMATOCRIT 26.9 % (36.0-48.0); LYMPH # 1.6 (1.2-3.4); LYMPH % 13.2 % (22.0-35.0); MEAN CELL VOLUME 91.5 fl (80.0-105.0); MEAN CORPUSCULAR HEMOGLOBIN 27.9 pg (25.0-35.0); MEAN CORPUSCULAR HGB CONC 30.5 g/dl (31.0-37.0); MEAN PLATELET VOLUME 9.3 fl (7.0-11.0); MONO # 0.8 (0.1-0.6); MONO % 6.4 % (1.0-6.0); RED CELL DISTRIBUTION WIDTH 16.4 % (11.5-14.5); WHITE BLOOD COUNT 12.4 10^3/ul (4.5-11.0)
[2016-11-16 10:12] LABS: ALB/GLOB RATIO 0.6 (1.1-1.8); BILIRUBIN,TOTAL 0.4 mg/dL (0.2-1.3); CALCIUM 8.5 mg/dL (8.4-10.5); POTASSIUM 4.1 mmol/L (3.6-5.0); TOTAL PROTEIN 7.9 g/dL (5.8-8.3)
[2016-11-16] MEDS: Fluconazole IV 200mg/100 ml NS 100 MG in Premixed IV 1 EA IVPB SCH (10:31)
--- NOTE | 2016-11-16 11:25 | CP.PCM.PN ---
<Brennon Dave - Last Filed: 11/16/16 11:21> Subjective - Date & Time of Evaluation Date of Evaluation: 11/16/16 Time of Evaluation: 11:21 - Subjective Subjective: Pt seen and examined at bedside. Pt doing well at this time. No acute events overnight. Denies CP, SOB, N/V/D, fever, chills. Objective - Vital Signs/Intake and Output Vital Signs (last 24 hours): Temp Pulse Resp BP Pulse Ox 99.8 F H 103 H 20 117/77 100 11/16/16 09:03 11/16/16 09:16 11/16/16 09:03 11/16/16 09:16 11/16/16 09:03 Intake and Output: 11/16/16 11/16/16 06:59 18:59 Intake Total 540 Output Total 600 Balance -60 - Medications Medications: Current Medications Acetaminophen (Tylenol 325mg Tab) 650 mg PO Q4 PRN PRN Reason: Pain, Mild (1-3) Artificial Tears (Artificial Tears) 0.2 ml OU DAILY PRN PRN Reason: Dry skin Last Admin: 11/07/16 10:25 Dose: 2 drop Benzocaine/Menthol (Cepacol Sore Throat) 1 trent MT Q2H PRN PRN Reason: Sore Throat Last Admin: 11/16/16 07:08 Dose: 1 trent Carvedilol (Coreg) 6.25 mg PO BID [facility] Last Admin: 11/16/16 09:16 Dose: 6.25 mg Collagenase (Santyl) 0 gm TOP DAILY [facility] Last Admin: 11/16/16 09:34 Dose: Not Given Furosemide (Lasix) 100 mg IVP 0600,1800 [facility] Last Admin: 11/16/16 06:50 Dose: 100 mg Furosemide (Lasix) 20 mg IVP 0600,1800 [facility] Last Admin: 11/16/16 06:51 Dose: 20 mg Meropenem 250 mg/ Sodium (Chloride) 100 mls @ 100 mls/hr IVPB Q12H [facility] PRN Reason: Protocol Stop: 11/19/16 09:31 Last Admin: 11/16/16 10:30 Dose: 100 mls/hr Fluconazole 100 mg/ (Miscellaneous) 50 mls @ 100 mls/hr IVPB DAILY [facility] PRN Reason: Protocol Last Admin: 11/16/16 10:31 Dose: 100 mls/hr Insulin Detemir (Levemir) 7 unit SC BID [facility] Last Admin: 11/16/16 09:15 Dose: 7 unit Insulin Human Lispro (Humalog Med) 0 units SC ACHS [facility] PRN Reason: Protocol Last Admin: 11/16/16 09:15 Dose: 1 units Multi-Ingredient Cream (Hydrocerin Cream) 0 ea TOP BID [facility] Last Admin: 11/16/16 09:33 Dose: 1 unit Multivitamins/Minerals (Therapeutic-M Tab) 1 tab PO 0800 [facility] Last Admin: 11/16/16 09:16 Dose: 1 tab Ondansetron HCl (Zofran Inj) 4 mg IVP Q6H PRN PRN Reason: Nausea/Vomiting Pantoprazole Sodium (Protonix Ec Tab) 40 mg PO 0600,1600 [facility] Last Admin: 11/16/16 06:56 Dose: 40 mg Pregabalin (Lyrica) 100 mg PO TID [facility] Last Admin: 11/16/16 09:16 Dose: 100 mg Sodium Bicarbonate (Sodium Bicarbonate Tab) 3,900 mg PO QID [facility] Last Admin: 11/15/16 14:34 Dose: 3,900 mg - Labs Labs: 11/16/16 09:45 11/16/16 09:45 PT 13.2 Seconds (9.9-11.8) H 11/11/16 05:40 INR 1.22 (0.93-1.08) H 11/11/16 05:40 APTT 32.0 Seconds (23.7-30.8) H 11/11/16 05:40 - Constitutional Appears: Non-toxic, No Acute Distress - Head Exam Head Exam: ATRAUMATIC, NORMAL INSPECTION, NORMOCEPHALIC - Neck Exam Additional comments: Dialysis catheter in place - Respiratory Exam Respiratory Exam: Clear to Ausculation Bilateral, NORMAL BREATHING PATTERN. absent: Rales, Rhonchi, Wheezes - Cardiovascular Exam Cardiovascular Exam: RRR, +S1, +S2 - GI/Abdominal Exam GI & Abdominal Exam: Soft, Normal Bowel Sounds. absent: Tenderness - Extremities Exam Extremities Exam: Pedal Edema (Trace b/l ). absent: Calf Tenderness - Neurological Exam Neurological Exam: Alert, Awake, Oriented x3 - Psychiatric Exam Psychiatric exam: Normal Affect, Normal Mood - Skin Skin Exam: Intact, Normal Color, Warm Assessment and Plan - Assessment and Plan (Free Text) Plan: 36 y/o F PMH of DM, HTN, HLD, RLE dvt and LLE ulcer who presented w/ Septic shock 2/2 pyelonephritis and LLE osteomyelitis. Septic shock now resolved. EMMETT still present, improving on dialysis. MRI shows osteomyelitis of L calcaneus and diffuse plantar proximal aspect of L foot. Pt is currently on Merrem and Fluconazole. Will continue as per ID. Pt is also being followed closely by Nephrology. Septic Shock - Resolved - Repeat blood, urine, and stool cultures negative at this time - ID recommends continuing abx - L foot wound cx growing MRSA and corynebacterium LLE Osteomyelitis - s/p I&D - Will require 6 weeks of abx as per ID, will await recs - MRI L foot showed osteomyelitis of L calcaneus and diffuse plantar proximal aspect of L foot - wound care per podiatry- wound vac will be removed and the patient can follow with wound care when discharged. will continue follow while inpatient. - L Foot cx growing MRSA and corynbacterium Worsening CKD - Cr remains elevated, Dr. Preston recs- renal biopsy completed showing MRSA and yeast, will start Diflucan as per ID - Nephrology consulted, recs appreciated- long-term dialysis will be required, patient will likely need tunneled catheter placement for group home dialysis - NAGMA noted- likely 2/2 diarrhea vs RTA IV; nephro recs- continue sodium bicarbonate tabs Anemia likely 2/2 chronic dz - s/p 7u total pRBC transfused - Hgb 8.2 today - Dr. Weaver consulted- appreciate recs- note reviewed, patient does not want her care at this time as patient has Dr. Granados outpatient, as per note the patient claims she already completed a bone marrow biopsy and was recommended to take iron - kappa/lambda are elevated Hx DM - glucose levels remain elevated - continue with levemir 7 BID - ISS med Peripheral Neuropathy - Lyrica 100 TID Cardiomyopathy - ECHO shows EF of 35% - Cardioogy consulted, Dr. Ryan- appreciate recommendations - c/w Coreg 6.25 BID and lasix PPX - protonix - no scds due to foot infection, no lovenox due to renal function, no heparin due to decreasing H/H Bhagwandin, PGY-2 <BryceRamsey espinosakay - Last Filed: 11/16/16 14:26> Objective - Vital Signs/Intake and Output Vital Signs (last 24 hours): Temp Pulse Resp BP Pulse Ox 99.8 F H 103 H 20 117/77 100 11/16/16 09:03 11/16/16 09:16 11/16/16 09:03 11/16/16 09:16 11/16/16 09:03 Intake and Output: 11/16/16 11/16/16 06:59 18:59 Intake Total 540 Output Total 600 Balance -60 - Medications Medications: Current Medications Acetaminophen (Tylenol 325mg Tab) 650 mg PO Q4 PRN PRN Reason: Pain, Mild (1-3) Artificial Tears (Artificial Tears) 0.2 ml OU DAILY PRN PRN Reason: Dry skin Last Admin: 11/07/16 10:25 Dose: 2 drop Benzocaine/Menthol (Cepacol Sore Throat) 1 trent MT Q2H PRN PRN Reason: Sore Throat Last Admin: 11/16/16 11:39 Dose: 1 trent Carvedilol (Coreg) 6.25 mg PO BID [facility] Last Admin: 11/16/16 09:16 Dose: 6.25 mg Collagenase (Santyl) 0 gm TOP DAILY [facility] Last Admin: 11/16/16 09:34 Dose: Not Given Furosemide (Lasix) 100 mg IVP 0600,1800 [facility] Last Admin: 11/16/16 06:50 Dose: 100 mg Furosemide (Lasix) 20 mg IVP 0600,1800 [facility] Last Admin: 11/16/16 06:51 Dose: 20 mg Meropenem 250 mg/ Sodium (Chloride) 100 mls @ 100 mls/hr IVPB Q12H [facility] PRN Reason: Protocol Stop: 11/19/16 09:31 Last Admin: 11/16/16 10:30 Dose: 100 mls/hr Fluconazole 100 mg/ (Miscellaneous) 50 mls @ 100 mls/hr IVPB DAILY [facility] PRN Reason: Protocol Last Admin: 11/16/16 10:31 Dose: 100 mls/hr Insulin Detemir (Levemir) 7 unit SC BID [facility] Last Admin: 11/16/16 09:15 Dose: 7 unit Insulin Human Lispro (Humalog Med) 0 units SC ACHS [facility] PRN Reason: Protocol Last Admin: 11/16/16 11:39 Dose: 1 units Multi-Ingredient Cream (Hydrocerin Cream) 0 ea TOP BID [facility] Last Admin: 11/16/16 09:33 Dose: 1 unit Multivitamins/Minerals (Therapeutic-M Tab) 1 tab PO 0800 [facility] Last Admin: 11/16/16 09:16 Dose: 1 tab Ondansetron HCl (Zofran Inj) 4 mg IVP Q6H PRN PRN Reason: Nausea/Vomiting Pantoprazole Sodium (Protonix Ec Tab) 40 mg PO 0600,1600 [facility] Last Admin: 11/16/16 06:56 Dose: 40 mg Pregabalin (Lyrica) 100 mg PO TID [facility] Last Admin: 11/16/16 09:16 Dose: 100 mg Sodium Bicarbonate (Sodium Bicarbonate Tab) 3,900 mg PO QID [facility] Last Admin: 11/15/16 14:34 Dose: 3,900 mg - Labs Labs: 11/16/16 09:45 11/16/16 09:45 PT 13.2 Seconds (9.9-11.8) H 11/11/16 05:40 INR 1.22 (0.93-1.08) H 11/11/16 05:40 APTT 32.0 Seconds (23.7-30.8) H 11/11/16 05:40 Attending/Attestation - Attestation I have personally seen and examined this patient.: Yes I have fully participated in the care of the patient.: Yes I have reviewed all pertinent clinical information, including history, physical exam and plan: Yes Notes (Text): 11/16/16 14:24 attending note; Patient seen and examined with the resident. Patient is a 36 year old female with history of IDDM, HTN, dyslipidemia, wheel chair bound, 2 amputated toes of left leg and chronic LE ulcer who presented with severe sepsis secondary to acute pyelonephritis, osteomyelitis of L foot, Acute on chronic kidney disease and anemia. patient is afebrile and nontoxic. Repeat Blood culture, urine culture is negative. left calcaneal osteomyelitis; on Meropenem and daptmycin. Need s 6 weeks of IV antibiotics. wound vac discontinued. anemia is multifactorial. hemoglobin stable at 8.2. Patient refused hematology/ GI work up. s/p renal biopsy. showed acute neutrophilic infiltrate suggesting pyelonephritis. Diabetic nephropathy. Creatinine is 6.6 today. Plan for dialysis today. cardiomyopathy: on Coreg. Long-term prognosis is poor secondary to multiple medical problems and noncompliance with follow-up. No insurance is active at this point. Upon discharge patient will follow up with .
--- NOTE | 2016-11-16 12:28 | CP.PCM.PN ---
Objective - Vital Signs/Intake and Output Vital Signs (last 24 hours): Temp Pulse Resp BP Pulse Ox 99.8 F H 103 H 20 117/77 100 11/16/16 09:03 11/16/16 09:16 11/16/16 09:03 11/16/16 09:16 11/16/16 09:03 Intake and Output: 11/16/16 11/16/16 06:59 18:59 Intake Total 540 Output Total 600 Balance -60 - Medications Medications: Current Medications Acetaminophen (Tylenol 325mg Tab) 650 mg PO Q4 PRN PRN Reason: Pain, Mild (1-3) Artificial Tears (Artificial Tears) 0.2 ml OU DAILY PRN PRN Reason: Dry skin Last Admin: 11/07/16 10:25 Dose: 2 drop Benzocaine/Menthol (Cepacol Sore Throat) 1 trent MT Q2H PRN PRN Reason: Sore Throat Last Admin: 11/16/16 11:39 Dose: 1 trent Carvedilol (Coreg) 6.25 mg PO BID [facility] Last Admin: 11/16/16 09:16 Dose: 6.25 mg Collagenase (Santyl) 0 gm TOP DAILY [facility] Last Admin: 11/16/16 09:34 Dose: Not Given Furosemide (Lasix) 100 mg IVP 0600,1800 [facility] Last Admin: 11/16/16 06:50 Dose: 100 mg Furosemide (Lasix) 20 mg IVP 0600,1800 [facility] Last Admin: 11/16/16 06:51 Dose: 20 mg Meropenem 250 mg/ Sodium (Chloride) 100 mls @ 100 mls/hr IVPB Q12H [facility] PRN Reason: Protocol Stop: 11/19/16 09:31 Last Admin: 11/16/16 10:30 Dose: 100 mls/hr Fluconazole 100 mg/ (Miscellaneous) 50 mls @ 100 mls/hr IVPB DAILY [facility] PRN Reason: Protocol Last Admin: 11/16/16 10:31 Dose: 100 mls/hr Insulin Detemir (Levemir) 7 unit SC BID [facility] Last Admin: 11/16/16 09:15 Dose: 7 unit Insulin Human Lispro (Humalog Med) 0 units SC ACHS [facility] PRN Reason: Protocol Last Admin: 11/16/16 11:39 Dose: 1 units Multi-Ingredient Cream (Hydrocerin Cream) 0 ea TOP BID [facility] Last Admin: 11/16/16 09:33 Dose: 1 unit Multivitamins/Minerals (Therapeutic-M Tab) 1 tab PO 0800 [facility] Last Admin: 11/16/16 09:16 Dose: 1 tab Ondansetron HCl (Zofran Inj) 4 mg IVP Q6H PRN PRN Reason: Nausea/Vomiting Pantoprazole Sodium (Protonix Ec Tab) 40 mg PO 0600,1600 [facility] Last Admin: 11/16/16 06:56 Dose: 40 mg Pregabalin (Lyrica) 100 mg PO TID [facility] Last Admin: 11/16/16 09:16 Dose: 100 mg Sodium Bicarbonate (Sodium Bicarbonate Tab) 3,900 mg PO QID [facility] Last Admin: 11/15/16 14:34 Dose: 3,900 mg - Labs Labs: 11/16/16 09:45 11/16/16 09:45 PT 13.2 Seconds (9.9-11.8) H 11/11/16 05:40 INR 1.22 (0.93-1.08) H 11/11/16 05:40 APTT 32.0 Seconds (23.7-30.8) H 11/11/16 05:40 Assessment and Plan (1) Acute renal failure Status: Acute (2) CKD (chronic kidney disease) Status: Chronic (3) Anemia Status: Acute (4) Metabolic acidosis Status: Acute (5) Sepsis Status: Acute (6) CHF (congestive heart failure) Status: Acute
[2016-11-16] MEDS ORDERED: Darbepoetin Alfa 60 mcg/ml Inj IVP ONE (14:33)
--- NOTE | 2016-11-16 17:36 | PN ---
DATE: SUBJECTIVE: The patient denies any chest pain at this time. She is about to restart her hemodialysis. PHYSICAL EXAMINATION: VITAL SIGNS: Blood pressure 117/77, heart rate 103 and temperature 99.8. HEENT: Periorbital edema. CHEST: Diminished breath sounds over the bases. HEART: S1 and S2 regular. EXTREMITIES: No pedal edema. LABORATORY DATA: Today's BUN and creatinine are 69 and 6.6, respectively. Glucose is 169. Potassium is within normal limits. Today's hemoglobin and hematocrit 8.2 and 26.9. White count and platelet count are 12.4 and 396,000. ASSESSMENT: 1. Cardiomyopathy. 2. Acute renal failure. 3. Anemia. 4. Status post incision and drainage of the left foot. 5. Hypertension. 6. Diabetes mellitus. RECOMMENDATIONS: Continue current Coreg 6.25 mg twice a day, Lasix 100 mg intravenous twice a day, IV meropenem 250 mg q. 12 hours and fluconazole mg intravenously daily. Semaj Ryan MD
[2016-11-17] MEDS: Benzocaine/Menthol (Cepacol) Lozenge MT PRN ×2 (01:32→06:38)
[2016-11-17] MEDS: Pantoprazole 40 mg EC Tab PO SCH (06:38)
[2016-11-17 07:26] LABS: BASO # 0.06 K/mm3 (0.0-2.0); BASO % 0.5 % (0.0-3.0); EOS # 0.3 (0.0-0.7); EOS % 2.3 % (1.5-5.0); GRAN # 8.35 (1.4-6.5); GRAN % 75.1 % (50.0-68.0); HEMATOCRIT 25.3 % (36.0-48.0); LYMPH # 1.6 (1.2-3.4); LYMPH % 14.5 % (22.0-35.0); MEAN CELL VOLUME 91.3 fl (80.0-105.0); MEAN CORPUSCULAR HEMOGLOBIN 28.5 pg (25.0-35.0); MEAN CORPUSCULAR HGB CONC 31.2 g/dl (31.0-37.0); MEAN PLATELET VOLUME 9.2 fl (7.0-11.0); MONO # 0.9 (0.1-0.6); MONO % 7.6 % (1.0-6.0); RED CELL DISTRIBUTION WIDTH 16.5 % (11.5-14.5); WHITE BLOOD COUNT 11.1 10^3/ul (4.5-11.0)
[2016-11-17 07:54] LABS: ALB/GLOB RATIO 0.6 (1.1-1.8); BILIRUBIN,TOTAL 0.4 mg/dL (0.2-1.3); POTASSIUM 3.7 mmol/L (3.6-5.0); TOTAL PROTEIN 7.7 g/dL (5.8-8.3)
[2016-11-17] MEDS: Multivitamin With Minerals Tab PO SCH (08:00)
[2016-11-17] MEDS: Insulin Lispro (humaLOG) MEDIUM Coverage SC SCH ×4 (08:46→21:18)
[2016-11-17] MEDS: Insulin Detemir 100 units/ml Vial (Levemir) SC SCH ×2 (10:00→18:24)
[2016-11-17] MEDS ORDERED: DAPTOmycin 500 mg Inj (Cubicin) IV SCH (10:30)
--- NOTE | 2016-11-17 10:59 | CP.PCM.PN ---
<Brennon Dave - Last Filed: 11/17/16 10:56> Subjective - Date & Time of Evaluation Date of Evaluation: 11/17/16 Time of Evaluation: 10:56 - Subjective Subjective: Pt seen and examined at bedside. Pt resting comfortably in bed. Pt with mother at bedside. Pt remains noncomplaint with dialysis not completing session yesterday. Objective - Vital Signs/Intake and Output Vital Signs (last 24 hours): Temp Pulse Resp BP Pulse Ox 99.5 F 102 H 22 128/88 99 11/17/16 07:41 11/17/16 07:41 11/17/16 07:41 11/17/16 07:41 11/17/16 07:41 Intake and Output: 11/17/16 11/17/16 06:59 18:59 Intake Total 1020 Output Total 400 Balance 620 - Medications Medications: Current Medications Acetaminophen (Tylenol 325mg Tab) 650 mg PO Q4 PRN PRN Reason: Pain, Mild (1-3) Artificial Tears (Artificial Tears) 0.2 ml OU DAILY PRN PRN Reason: Dry skin Last Admin: 11/07/16 10:25 Dose: 2 drop Benzocaine/Menthol (Cepacol Sore Throat) 1 trent MT Q2H PRN PRN Reason: Sore Throat Last Admin: 11/17/16 06:38 Dose: 1 trent Collagenase (Santyl) 0 gm TOP DAILY [facility] Last Admin: 11/16/16 09:34 Dose: Not Given Furosemide (Lasix) 120 mg IVP 0600,1800 [facility] Last Admin: 11/17/16 06:37 Dose: 120 mg Meropenem 250 mg/ Sodium (Chloride) 100 mls @ 100 mls/hr IVPB Q12H [facility] PRN Reason: Protocol Stop: 11/19/16 09:31 Last Admin: 11/16/16 22:16 Dose: 100 mls/hr Fluconazole 100 mg/ (Miscellaneous) 50 mls @ 100 mls/hr IVPB DAILY [facility] PRN Reason: Protocol Last Admin: 11/16/16 10:31 Dose: 100 mls/hr Daptomycin 420 mg/ Sodium (Chloride) 100 mls @ 200 mls/hr IV QOTHERDAY [facility] Stop: 12/15/16 10:31 Insulin Detemir (Levemir) 7 unit SC BID [facility] Last Admin: 11/16/16 18:16 Dose: 7 unit Insulin Human Lispro (Humalog Med) 0 units SC ACHS [facility] PRN Reason: Protocol Last Admin: 11/17/16 08:46 Dose: 5 units Multi-Ingredient Cream (Hydrocerin Cream) 0 ea TOP BID [facility] Last Admin: 11/16/16 18:12 Dose: 1 unit Ondansetron HCl (Zofran Inj) 4 mg IVP Q6H PRN PRN Reason: Nausea/Vomiting Sodium Bicarbonate (Sodium Bicarbonate Tab) 3,900 mg PO QID [facility] Last Admin: 11/15/16 14:34 Dose: 3,900 mg - Labs Labs: 11/17/16 05:00 11/17/16 05:00 PT 13.2 Seconds (9.9-11.8) H 11/11/16 05:40 INR 1.22 (0.93-1.08) H 11/11/16 05:40 APTT 32.0 Seconds (23.7-30.8) H 11/11/16 05:40 - Constitutional Appears: Non-toxic, No Acute Distress - Head Exam Head Exam: ATRAUMATIC, NORMAL INSPECTION, NORMOCEPHALIC - Respiratory Exam Respiratory Exam: Clear to Ausculation Bilateral, NORMAL BREATHING PATTERN - Cardiovascular Exam Cardiovascular Exam: RRR, +S1, +S2 - GI/Abdominal Exam GI & Abdominal Exam: Soft, Normal Bowel Sounds. absent: Tenderness - Extremities Exam Extremities Exam: absent: Calf Tenderness, Pedal Edema - Neurological Exam Neurological Exam: Alert, Awake, Oriented x3 - Skin Skin Exam: Intact, Normal Color, Warm Assessment and Plan - Assessment and Plan (Free Text) Plan: 36 y/o F PMH of DM, HTN, HLD, RLE dvt and LLE ulcer who presented w/ Septic shock 2/2 pyelonephritis and LLE osteomyelitis. Septic shock now resolved. EMMETT still present, improving on dialysis. As per nursing, pt did not finish dialysis session yesterday. MRI shows osteomyelitis of L calcaneus and diffuse plantar proximal aspect of L foot. Pt is currently on Daptomycin, Merrem, and Fluconazole. Will continue as per ID. Pt is also being followed closely by Nephrology. Septic Shock - Resolved - Repeat blood, urine, and stool cultures negative at this time - ID recommends continuing abx - L foot wound cx growing MRSA and corynebacterium LLE Osteomyelitis - s/p I&D - Will require 6 weeks of abx as per ID, will await recs - MRI L foot showed osteomyelitis of L calcaneus and diffuse plantar proximal aspect of L foot - wound care per podiatry- wound vac will be removed and the patient can follow with wound care when discharged. will continue follow while inpatient. - L Foot cx growing MRSA and corynbacterium Worsening CKD - Cr remains elevated, Dr. Preston recs- renal biopsy completed showing MRSA and yeast, will start Diflucan as per ID - Nephrology consulted, recs appreciated- long-term dialysis will be required, patient will likely need tunneled catheter placement for snf dialysis, but may be able to eventually come off dialysis. - NAGMA noted- likely 2/2 diarrhea vs RTA IV; nephro recs- continue sodium bicarbonate tabs Anemia likely 2/2 chronic dz - s/p 7u total pRBC transfused - Hgb 8.2 today - Dr. Weaver consulted- appreciate recs- note reviewed, patient does not want her care at this time as patient has Dr. Granados outpatient, as per note the patient claims she already completed a bone marrow biopsy and was recommended to take iron - kappa/lambda are elevated Hx DM - glucose levels remain elevated - continue with levemir 7 BID - ISS med Peripheral Neuropathy - Lyrica 100 TID Cardiomyopathy - ECHO shows EF of 35% - Cardiology consulted, Dr. Ryan- appreciate recommendations - c/w Coreg 6.25 BID and lasix PPX - protonix - no scds due to foot infection, no lovenox due to renal function, no heparin due to decreasing H/H Jolie, PGY-2 <Laquita Talley - Last Filed: 11/17/16 13:51> Objective - Vital Signs/Intake and Output Vital Signs (last 24 hours): Temp Pulse Resp BP Pulse Ox 99.5 F 102 H 22 128/88 99 11/17/16 07:41 11/17/16 07:41 11/17/16 07:41 11/17/16 07:41 11/17/16 07:41 Intake and Output: 11/17/16 11/17/16 06:59 18:59 Intake Total 1020 Output Total 400 Balance 620 - Medications Medications: Current Medications Acetaminophen (Tylenol 325mg Tab) 650 mg PO Q4 PRN PRN Reason: Pain, Mild (1-3) Artificial Tears (Artificial Tears) 0.2 ml OU DAILY PRN PRN Reason: Dry skin Last Admin: 11/07/16 10:25 Dose: 2 drop Benzocaine/Menthol (Cepacol Sore Throat) 1 trent MT BID PRN PRN Reason: Sore Throat Collagenase (Santyl) 0 gm TOP DAILY [facility] Last Admin: 11/16/16 09:34 Dose: Not Given Furosemide (Lasix) 120 mg IVP 0600,1800 [facility] Last Admin: 11/17/16 06:37 Dose: 120 mg Meropenem 250 mg/ Sodium (Chloride) 100 mls @ 100 mls/hr IVPB Q12H [facility] PRN Reason: Protocol Stop: 11/19/16 09:31 Last Admin: 11/17/16 11:57 Dose: 100 mls/hr Fluconazole 100 mg/ (Miscellaneous) 50 mls @ 100 mls/hr IVPB DAILY [facility] PRN Reason: Protocol Last Admin: 11/17/16 11:57 Dose: 100 mls/hr Daptomycin 420 mg/ Sodium (Chloride) 100 mls @ 200 mls/hr IV QOTHERDAY [facility] Stop: 12/15/16 10:31 Last Admin: 11/17/16 11:56 Dose: 200 mls/hr Insulin Detemir (Levemir) 7 unit SC BID [facility] Last Admin: 11/16/16 18:16 Dose: 7 unit Insulin Human Lispro (Humalog Med) 0 units SC ACHS [facility] PRN Reason: Protocol Last Admin: 11/17/16 08:46 Dose: 5 units Multi-Ingredient Cream (Hydrocerin Cream) 0 ea TOP BID [facility] Last Admin: 11/16/16 18:12 Dose: 1 unit Ondansetron HCl (Zofran Inj) 4 mg IVP Q6H PRN PRN Reason: Nausea/Vomiting Sodium Bicarbonate (Sodium Bicarbonate Tab) 3,900 mg PO QID [facility] Last Admin: 11/15/16 14:34 Dose: 3,900 mg - Labs Labs: 11/17/16 05:00 11/17/16 05:00 PT 13.2 Seconds (9.9-11.8) H 11/11/16 05:40 INR 1.22 (0.93-1.08) H 11/11/16 05:40 APTT 32.0 Seconds (23.7-30.8) H 11/11/16 05:40 Attending/Attestation - Attestation I have personally seen and examined this patient.: Yes I have fully participated in the care of the patient.: Yes I have reviewed all pertinent clinical information, including history, physical exam and plan: Yes Notes (Text): 11/17/16 13:43 attending note; Patient seen and examined with the resident. Patient is a 36 year old female with history of IDDM, HTN, dyslipidemia, wheel chair bound, 2 amputated toes of left leg and chronic LE ulcer who presented with severe sepsis secondary to acute pyelonephritis, osteomyelitis of L foot, Acute on chronic kidney disease and anemia. left calcaneal osteomyelitis; on Meropenem and daptmycin. on IV diflucan. Needs 6 weeks of IV antibiotics. wound vac discontinued. dressing done by podiatry today. anemia is multifactorial. hemoglobin stable at 7.9. Patient refused hematology/ GI work up. s/p renal biopsy. showed acute neutrophilic infiltrate suggesting pyelonephritis. Diabetic nephropathy. Creatinine is 5.1 today. Patient had HD yesterday. did not complete the treatment. R IJ dialysis catheter will be removed as per patient's request. Patient will decide about permanent/tunneled dialysis catheter tomorrow. patient is requesting second opinion from another kidney specialist. nephrology second opinion called. possible depression: patient again refused psychiatrist evaluation. cardiomyopathy: on Coreg. Bed bound: suggested frequent change in position to avoid bedsores. Long-term prognosis is poor secondary to multiple medical problems and noncompliance with follow-up. Upon discharge patient will follow up with . 11/17/16 13:50
[2016-11-17] MEDS: Fluconazole IV 200mg/100 ml NS 100 MG in Premixed IV 1 EA IVPB SCH (11:57)
--- NOTE | 2016-11-17 15:52 | PN ---
SUBJECTIVE: The patient complains of sharp left-sided chest pain. She denies any shortness of breath. PHYSICAL EXAMINATION: VITAL SIGNS: Blood pressure 128/88, heart rate 102, temperature 99.5, respirations 22. HEENT: Pale conjunctivae. CHEST: Clear. HEART: S1 and S2 regular. EXTREMITIES: No pedal edema. LABORATORY DATA: Hemoglobin and hematocrit 7.9 and 25.3; white count 11.1; platelet count 382,000. SMA-7: Sodium 144, potassium 3.7, chloride 111, CO2 of 18, glucose , BUN 50, creatinine 5.1. Calcium is below normal at 8.1. ASSESSMENT: 1. Advanced renal insufficiency requiring hemodialysis. 2. Atypical chest pain, most likely pleuritic. 3. Cardiomyopathy. 4. Anemia. RECOMMENDATIONS: Continue current IV fluconazole as well as IV daptomycin. Continue Lasix 20 mg intravenous twice a day, IV meropenem at 250 mg q. 12 hours. Case was discussed with the process expert, Dr. Preston. Renal biopsy report still pending. Semaj Ryan MD
--- NOTE | 2016-11-17 19:02 | CP.PCM.PN ---
<Faisal Jacobson - Last Filed: 11/17/16 19:00> Subjective - Date & Time of Evaluation Date of Evaluation: 11/17/16 Time of Evaluation: 19:00 - Subjective Subjective: Podiatry Progress Note - Dr. Craven 36 year old female patient seen at bedside POD#18 left foot I&D (DOS: 10/31/16) with mother seen at bedside. Patient is seen resting comfortably in bed, AAOx3 and in NAD. Patient is seen wearing multipodus boots at the time of visitation. Patient denies N/V/C/SOB/calf pain. No pedal complaints at this time. Objective - Vital Signs/Intake and Output Vital Signs (last 24 hours): Temp Pulse Resp BP Pulse Ox 99.5 F 110 H 20 148/106 H 100 11/17/16 17:10 11/17/16 17:10 11/17/16 17:10 11/17/16 18:22 11/17/16 17:10 - Medications Medications: Current Medications Acetaminophen (Tylenol 325mg Tab) 650 mg PO Q4 PRN PRN Reason: Pain, Mild (1-3) Artificial Tears (Artificial Tears) 0.2 ml OU DAILY PRN PRN Reason: Dry skin Last Admin: 11/07/16 10:25 Dose: 2 drop Benzocaine/Menthol (Cepacol Sore Throat) 1 trent MT BID PRN PRN Reason: Sore Throat Collagenase (Santyl) 0 gm TOP DAILY [facility] Last Admin: 11/16/16 09:34 Dose: Not Given Furosemide (Lasix) 120 mg IVP 0600,1800 [facility] Last Admin: 11/17/16 18:22 Dose: 120 mg Meropenem 250 mg/ Sodium (Chloride) 100 mls @ 100 mls/hr IVPB Q12H [facility] PRN Reason: Protocol Stop: 11/19/16 09:31 Last Admin: 11/17/16 11:57 Dose: 100 mls/hr Fluconazole 100 mg/ (Miscellaneous) 50 mls @ 100 mls/hr IVPB DAILY [facility] PRN Reason: Protocol Last Admin: 11/17/16 11:57 Dose: 100 mls/hr Daptomycin 420 mg/ Sodium (Chloride) 100 mls @ 200 mls/hr IV QOTHERDAY [facility] Stop: 12/15/16 10:31 Last Admin: 11/17/16 11:56 Dose: 200 mls/hr Insulin Detemir (Levemir) 7 unit SC BID [facility] Last Admin: 11/17/16 18:24 Dose: 7 unit Insulin Human Lispro (Humalog Med) 0 units SC ACHS [facility] PRN Reason: Protocol Last Admin: 11/17/16 18:25 Dose: 1 units Multi-Ingredient Cream (Hydrocerin Cream) 0 ea TOP BID [facility] Last Admin: 11/16/16 18:12 Dose: 1 unit Ondansetron HCl (Zofran Inj) 4 mg IVP Q6H PRN PRN Reason: Nausea/Vomiting Sodium Bicarbonate (Sodium Bicarbonate Tab) 3,900 mg PO QID [facility] Last Admin: 11/15/16 14:34 Dose: 3,900 mg - Labs Labs: 11/17/16 05:00 11/17/16 05:00 PT 13.2 Seconds (9.9-11.8) H 11/11/16 05:40 INR 1.22 (0.93-1.08) H 11/11/16 05:40 APTT 32.0 Seconds (23.7-30.8) H 11/11/16 05:40 - Constitutional Appears: Well, Non-toxic, No Acute Distress - Extremities Exam Additional comments: Left leg focused. Dressings are clean, dry, and intact. VASC: DP and PT pulses palpable 2/4 b/l. TG WNL b/l. No edema noted to left foot. NEURO: Gross sensation absent bilaterally. DERM: LLE = One uniform full thickness ulceration noted to left medial heel measuring approximately 3.6 x 2.8 x 1.1 cm with wound base appearing as a granular ring and fibrotic core no active drainage noted. No acute signs of infection. RLE = Nonblanchable patch of erythema noted to plantarposterior calcaneus. ORTHO: No pain on palpation noted to foot b/l. Assessment and Plan - Assessment and Plan (Free Text) Assessment: 36 year old female 36 year old female PMHx IDDM, renal failure, sepsis, metabolic acidosis, UTI, CKD, anemia 1) s/p left foot incision and drainage with wound debridement; 2) Stage 1 pressure ulcer right heel Plan: Patient seen and evaluated at bedside Chart, vitals, labs reviewed - afebrile, WBC=12.4 Discussed the plan in detail with attending Dr. Craven Left foot wound culture = MRSA Urine culture - yeast Per ID, continue renally-adjusted Daptomycin; patient will need 6 weeks of abx Wounds cleansed with saline, dressed with Santyl, 4x4, Maxosorb, ABD, and kerlix. Patient to wear multipodus boots at all times while in bed to prevent progression of pressure ulcer formation R heel. Continue Eucerin cream bilateral LE BID Prognosis for limb salvage poor At this point, no further debridements are considered for left foot; will be seen in followup Podiatry will continue to follow patient while in house <Logan Craven - Last Filed: 11/18/16 09:35> Objective - Vital Signs/Intake and Output Vital Signs (last 24 hours): Temp Pulse Resp BP Pulse Ox 99.1 F 105 H 22 125/81 99 11/18/16 08:19 11/18/16 08:19 11/18/16 08:19 11/18/16 08:19 11/18/16 08:19 Intake and Output: 11/18/16 11/18/16 06:59 18:59 Intake Total 500 480 Output Total 500 375 Balance 0 105 - Medications Medications: Current Medications Acetaminophen (Tylenol 325mg Tab) 650 mg PO Q4 PRN PRN Reason: Pain, Mild (1-3) Artificial Tears (Artificial Tears) 0.2 ml OU DAILY PRN PRN Reason: Dry skin Last Admin: 11/07/16 10:25 Dose: 2 drop Benzocaine/Menthol (Cepacol Sore Throat) 1 trent MT BID PRN PRN Reason: Sore Throat Last Admin: 11/18/16 05:35 Dose: 1 trent Collagenase (Santyl) 0 gm TOP DAILY [facility] Last Admin: 11/18/16 03:00 Dose: Not Given Furosemide (Lasix) 120 mg IVP 0600,1800 [facility] Last Admin: 11/18/16 05:30 Dose: 120 mg Fluconazole 100 mg/ (Miscellaneous) 50 mls @ 100 mls/hr IVPB DAILY [facility] PRN Reason: Protocol Last Admin: 11/17/16 11:57 Dose: 100 mls/hr Daptomycin 420 mg/ Sodium (Chloride) 100 mls @ 200 mls/hr IV QOTHERDAY [facility] Stop: 12/15/16 10:31 Last Admin: 11/17/16 11:56 Dose: 200 mls/hr Insulin Detemir (Levemir) 7 unit SC BID [facility] Last Admin: 11/17/16 18:24 Dose: 7 unit Insulin Human Lispro (Humalog Med) 0 units SC ACHS [facility] PRN Reason: Protocol Multi-Ingredient Cream (Hydrocerin Cream) 0 ea TOP BID [facility] Last Admin: 11/18/16 03:00 Dose: Not Given Ondansetron HCl (Zofran Inj) 4 mg IVP Q6H PRN PRN Reason: Nausea/Vomiting Sodium Bicarbonate (Sodium Bicarbonate Tab) 3,900 mg PO QID [facility] Last Admin: 11/15/16 14:34 Dose: 3,900 mg - Labs Labs: 11/18/16 06:40 11/18/16 06:40 PT 13.2 Seconds (9.9-11.8) H 11/11/16 05:40 INR 1.22 (0.93-1.08) H 11/11/16 05:40 APTT 32.0 Seconds (23.7-30.8) H 11/11/16 05:40 Attending/Attestation - Attestation I have personally seen and examined this patient.: Yes I have fully participated in the care of the patient.: Yes I have reviewed all pertinent clinical information, including history, physical exam and plan: Yes
--- NOTE | 2016-11-17 23:53 | CP.PCM.PN ---
Subjective - Date & Time of Evaluation Date of Evaluation: 11/17/16 Time of Evaluation: 12:00 - Subjective Subjective: 36 yo F w/ pmh of dm, CKD, bedbound since past several months, admitted with severe metabolic acidosis in the setting of acute renal failure requiring initiation of HD; also w/ L foot wound w/ osteomyelitis; s/p renal biopsy last ; Patient again is very argumentative; cut short her HD treatment yesterday due to what she perceived were high BP readings (patient does not want HD, had been held for 1 week in an effort to see how patient could stave off need for HD with PO bicarb and diuretics; CrCl measurement also obtained and is dismal); Patient today demanding that her temporary R IJ HD cath be removed due to pain and some bleeding around catheter site; it was explained to her that catheter needs to be converted tunneled one but that this should wait till tomorrow in case the need for urgent HD arises; Otherwise, patient reports feeling well; Objective - Vital Signs/Intake and Output Vital Signs (last 24 hours): Temp Pulse Resp BP Pulse Ox 99.5 F 110 H 20 148/106 H 100 11/17/16 17:10 11/17/16 17:10 11/17/16 17:10 11/17/16 18:22 11/17/16 17:10 Intake and Output: 11/17/16 11/18/16 18:59 06:59 Intake Total 500 Output Total 500 Balance 0 - Medications Medications: Current Medications Acetaminophen (Tylenol 325mg Tab) 650 mg PO Q4 PRN PRN Reason: Pain, Mild (1-3) Artificial Tears (Artificial Tears) 0.2 ml OU DAILY PRN PRN Reason: Dry skin Last Admin: 11/07/16 10:25 Dose: 2 drop Benzocaine/Menthol (Cepacol Sore Throat) 1 trent MT BID PRN PRN Reason: Sore Throat Collagenase (Santyl) 0 gm TOP DAILY [facility] Last Admin: 11/16/16 09:34 Dose: Not Given Furosemide (Lasix) 120 mg IVP 0600,1800 [facility] Last Admin: 11/17/16 18:22 Dose: 120 mg Meropenem 250 mg/ Sodium (Chloride) 100 mls @ 100 mls/hr IVPB Q12H [facility] PRN Reason: Protocol Stop: 11/19/16 09:31 Last Admin: 11/17/16 22:29 Dose: 100 mls/hr Fluconazole 100 mg/ (Miscellaneous) 50 mls @ 100 mls/hr IVPB DAILY [facility] PRN Reason: Protocol Last Admin: 11/17/16 11:57 Dose: 100 mls/hr Daptomycin 420 mg/ Sodium (Chloride) 100 mls @ 200 mls/hr IV QOTHERDAY [facility] Stop: 12/15/16 10:31 Last Admin: 11/17/16 11:56 Dose: 200 mls/hr Insulin Detemir (Levemir) 7 unit SC BID [facility] Last Admin: 11/17/16 18:24 Dose: 7 unit Multi-Ingredient Cream (Hydrocerin Cream) 0 ea TOP BID [facility] Last Admin: 11/16/16 18:12 Dose: 1 unit Ondansetron HCl (Zofran Inj) 4 mg IVP Q6H PRN PRN Reason: Nausea/Vomiting Sodium Bicarbonate (Sodium Bicarbonate Tab) 3,900 mg PO QID [facility] Last Admin: 11/15/16 14:34 Dose: 3,900 mg - Labs Labs: 11/17/16 05:00 11/17/16 05:00 PT 13.2 Seconds (9.9-11.8) H 11/11/16 05:40 INR 1.22 (0.93-1.08) H 11/11/16 05:40 APTT 32.0 Seconds (23.7-30.8) H 11/11/16 05:40 - Constitutional Appears: Non-toxic, No Acute Distress, Agitated - Head Exam Head Exam: NORMAL INSPECTION - Eye Exam Eye Exam: Normal appearance. absent: Scleral icterus - ENT Exam ENT Exam: Mucous Membranes Moist - Respiratory Exam Respiratory Exam: absent: Respiratory Distress Additional comments: mild basal rales present; - Cardiovascular Exam Cardiovascular Exam: RRR, +S1, +S2 - GI/Abdominal Exam GI & Abdominal Exam: Soft. absent: Distended, Tenderness - Extremities Exam Additional comments: no lower leg edema; - Neurological Exam Neurological Exam: Alert, Awake - Psychiatric Exam Psychiatric exam: Agitated - Skin Skin Exam: Warm. absent: Cyanosis Assessment and Plan (1) Acute renal failure Assessment & Plan: EMMETT on CKD; serum creatinine 1.1 in July 2015 and ~3 in September of this year; oliguric renal failure but responding well to diuretics; s/p renal biopsy on with preliminary reading consistent with pyelonephritis (neutrophilic interstitial inflammation) as the cause of patient EMMETT despite having been broad spectrum antibiotic coverage with daptomycin and meropenem; discusses with ID and fluconazole started yesterday for anti-fungal coverage; question is whether patient will benefit from steroids to decrease the severe interstitial inflammation; blood sugars are already extremely high at times but will consider a short course of PO prednisone after discussion with patient (in order to avoid yet another confrontation with patient); Otherwise, patient needs to be continued on 3 times weekly HD; unfortunately, patient is in denial regarding her renal failure and seems to think that giving her a bicarb drip is the solution; -change to tunneled HD cath tomorrow -continue IV lasix 120 mg bid -holding sodium bicarb tabs to avoid volume overload (had been increased to 3900 mg qid although was still not quite sufficient) Status: Acute (2) CKD (chronic kidney disease) Assessment & Plan: DM nephropathy changes on renal biopsy; therefore, while serum creat was ~3 just 2 months ago, rapid progression to ESRD is a distinct possibility even if EMMETT resolves; severely compromised GFR doesn't allow us to get a good grasp on her degree of proteinuria (<1g on 24 hr collection, but nephrotic range on random urine prot/creat ratio); -avoid any nephrotoxic agents -need aggressive blood sugar control to avoid further progression of CKD Status: Chronic (3) Anemia Assessment & Plan: s/p aranesp dose yesterday but with ongoing inflammation, likely with EPO resistance; transfuse prn; Status: Acute (4) Metabolic acidosis Assessment & Plan: Partially corrected with short HD treatment, HD as above; Status: Acute (5) Sepsis Status: Acute (6) CHF (congestive heart failure) Assessment & Plan: With severe systolic dysfunction; pulmonary edema on CXR; lasix as above; Status: Acute
[2016-11-18] MEDS: Collagenase 250 Units/gm Ointment(30 gm) TOP SCH ×2 (03:00→10:07)
[2016-11-18] MEDS: Hydrocerin(120 gm) TOP SCH ×3 (03:00→18:01)
--- NOTE | 2016-11-18 04:51 | CP.PCM.PN ---
<Ata Ackerman - Last Filed: 11/18/16 12:39> Subjective - Date & Time of Evaluation Date of Evaluation: 11/18/16 Time of Evaluation: 10:30 - Subjective Subjective: Subjective: Patient seen and examined at bedside. Resting comfortably in bed. No acute overnight events. Patient states that she is willing to have catheter placed for HD after receiving second nephrology consult. Offers no new complaints at this time. Denies f/c/cp/sob/abdominal pain/n/v/d/c/urinary sxs. Physical Examination: - Constitutional Appears: NAD - Head Exam Head Exam: ATRAUMATIC, NORMAL INSPECTION, NORMOCEPHALIC - Eye Exam Eye Exam: EOMI, Normal appearance, PERRL Pupil Exam: NORMAL ACCOMODATION, PERRL - ENT Exam ENT Exam: Mucous Membranes Moist, Normal Exam - Neck Exam Neck exam: Positive for: Normal Inspection - Respiratory Exam Respiratory Exam: Clear to Auscultation Bilateral, NORMAL BREATHING PATTERN - Cardiovascular Exam Cardiovascular Exam: REGULAR RHYTHM, +S1, +S2 - GI/Abdominal Exam GI & Abdominal Exam: Normal Bowel Sounds, Soft. absent: Tenderness - Extremities Exam Extremities exam: left foot bandaged - Back Exam Back exam: CVA tenderness (L), CVA tenderness (R) - Neurological Exam Neurological exam: Patient is awake, alert, responds to verbal stimuli, answers questions appropriately, follows commands, and moves extremities past midline - Psychiatric Exam Psychiatric exam: Normal Affect, Normal Mood Assessment and Plan: Worsening CKD - Cr remains elevated, Dr. Preston recs- renal biopsy completed showing MRSA and yeast, c/w Diflucan and daptomycin as per ID - Nephrology consulted, recs appreciated- long-term dialysis will be required, patient will get tunneled catheter placement for exterminator dialysis, but may be able to eventually come off dialysis. - NAGMA noted- likely 2/2 diarrhea vs RTA IV; nephro recs- continue sodium bicarbonate tabs Septic Shock - Resolved - Repeat blood, urine, and stool cultures negative at this time - ID recommends continuing abx - L foot wound cx growing MRSA and corynebacterium LLE Osteomyelitis - s/p I&D - Will require 6 weeks of abx as per ID, will await recs - MRI L foot showed osteomyelitis of L calcaneus and diffuse plantar proximal aspect of L foot - wound care per podiatry- wound vac will be removed and the patient can follow with wound care when discharged. will continue follow while inpatient. - L Foot cx growing MRSA and corynbacterium Anemia likely 2/2 chronic dz - s/p 7u total pRBC transfused - Hgb 8.1 today - Dr. Weaver consulted- appreciate recs- note reviewed, patient does not want her care at this time as patient has Dr. Granados outpatient, as per note the patient claims she already completed a bone marrow biopsy and was recommended to take iron - kappa/lambda are elevated Hx DM - glucose levels remain elevated- monitor closely- advised to continue with recommended diet - continue with levemir 7 BID - ISS med Cardiomyopathy - ECHO shows EF of 35% - Cardiology consulted, Dr. Ryan- appreciate recommendations - c/w Coreg 6.25 BID and lasix PPX - protonix - no scds due to foot infection, no lovenox due to renal function, no heparin due to decreasing H/H Patient seen, case discussed with, and plan approved by attending physician, Dr. Parker. Objective - Vital Signs/Intake and Output Vital Signs (last 24 hours): Temp Pulse Resp BP Pulse Ox 99.5 F 110 H 20 148/106 H 100 11/17/16 17:10 11/17/16 17:10 11/17/16 17:10 11/17/16 18:22 11/17/16 17:10 Intake and Output: 11/17/16 11/18/16 18:59 06:59 Intake Total 500 Output Total 500 Balance 0 - Medications Medications: Current Medications Acetaminophen (Tylenol 325mg Tab) 650 mg PO Q4 PRN PRN Reason: Pain, Mild (1-3) Artificial Tears (Artificial Tears) 0.2 ml OU DAILY PRN PRN Reason: Dry skin Last Admin: 11/07/16 10:25 Dose: 2 drop Benzocaine/Menthol (Cepacol Sore Throat) 1 trent MT BID PRN PRN Reason: Sore Throat Collagenase (Santyl) 0 gm TOP DAILY [facility] Last Admin: 11/18/16 03:00 Dose: Not Given Furosemide (Lasix) 120 mg IVP 0600,1800 [facility] Last Admin: 11/17/16 18:22 Dose: 120 mg Meropenem 250 mg/ Sodium (Chloride) 100 mls @ 100 mls/hr IVPB Q12H [facility] PRN Reason: Protocol Stop: 11/19/16 09:31 Last Admin: 11/17/16 22:29 Dose: 100 mls/hr Fluconazole 100 mg/ (Miscellaneous) 50 mls @ 100 mls/hr IVPB DAILY [facility] PRN Reason: Protocol Last Admin: 11/17/16 11:57 Dose: 100 mls/hr Daptomycin 420 mg/ Sodium (Chloride) 100 mls @ 200 mls/hr IV QOTHERDAY [facility] Stop: 12/15/16 10:31 Last Admin: 11/17/16 11:56 Dose: 200 mls/hr Insulin Detemir (Levemir) 7 unit SC BID [facility] Last Admin: 11/17/16 18:24 Dose: 7 unit Multi-Ingredient Cream (Hydrocerin Cream) 0 ea TOP BID [facility] Last Admin: 11/18/16 03:00 Dose: Not Given Ondansetron HCl (Zofran Inj) 4 mg IVP Q6H PRN PRN Reason: Nausea/Vomiting Sodium Bicarbonate (Sodium Bicarbonate Tab) 3,900 mg PO QID [facility] Last Admin: 11/15/16 14:34 Dose: 3,900 mg - Labs Labs: 11/17/16 05:00 11/17/16 05:00 PT 13.2 Seconds (9.9-11.8) H 11/11/16 05:40 INR 1.22 (0.93-1.08) H 11/11/16 05:40 APTT 32.0 Seconds (23.7-30.8) H 11/11/16 05:40 <Agustin Parker - Last Filed: 11/18/16 15:42> Objective - Vital Signs/Intake and Output Vital Signs (last 24 hours): Temp Pulse Resp BP Pulse Ox 99.1 F 105 H 22 125/81 99 11/18/16 08:19 11/18/16 08:19 11/18/16 08:19 11/18/16 08:19 11/18/16 08:19 Intake and Output: 11/18/16 11/18/16 06:59 18:59 Intake Total 500 1080 Output Total 500 375 Balance 0 705 - Medications Medications: Current Medications Acetaminophen (Tylenol 325mg Tab) 650 mg PO Q4 PRN PRN Reason: Pain, Mild (1-3) Artificial Tears (Artificial Tears) 0.2 ml OU DAILY PRN PRN Reason: Dry skin Last Admin: 11/07/16 10:25 Dose: 2 drop Benzocaine/Menthol (Cepacol Sore Throat) 1 trent MT BID PRN PRN Reason: Sore Throat Last Admin: 11/18/16 05:35 Dose: 1 trent Collagenase (Santyl) 0 gm TOP DAILY [facility] Last Admin: 11/18/16 10:07 Dose: 1 applic Furosemide (Lasix) 120 mg IVP 0600,1800 [facility] Last Admin: 11/18/16 05:30 Dose: 120 mg Fluconazole 100 mg/ (Miscellaneous) 50 mls @ 100 mls/hr IVPB DAILY [facility] PRN Reason: Protocol Last Admin: 11/18/16 10:02 Dose: 100 mls/hr Daptomycin 420 mg/ Sodium (Chloride) 100 mls @ 200 mls/hr IV QOTHERDAY [facility] Stop: 12/15/16 10:31 Last Admin: 11/17/16 11:56 Dose: 200 mls/hr Insulin Detemir (Levemir) 7 unit SC BID [facility] Last Admin: 11/18/16 09:58 Dose: 7 unit Insulin Human Lispro (Humalog Med) 0 units SC ACHS [facility] PRN Reason: Protocol Last Admin: 11/18/16 12:27 Dose: 5 units Multi-Ingredient Cream (Hydrocerin Cream) 0 ea TOP BID [facility] Last Admin: 11/18/16 10:06 Dose: 1 unit Ondansetron HCl (Zofran Inj) 4 mg IVP Q6H PRN PRN Reason: Nausea/Vomiting Pantoprazole Sodium (Protonix Ec Tab) 40 mg PO DAILY [facility] Sodium Bicarbonate (Sodium Bicarbonate Tab) 3,900 mg PO QID [facility] Last Admin: 11/18/16 13:34 Dose: 3,900 mg - Labs Labs: 11/18/16 06:40 11/18/16 06:40 PT 13.2 Seconds (9.9-11.8) H 11/11/16 05:40 INR 1.22 (0.93-1.08) H 11/11/16 05:40 APTT 32.0 Seconds (23.7-30.8) H 11/11/16 05:40 Attending/Attestation - Attestation I have personally seen and examined this patient.: Yes I have fully participated in the care of the patient.: Yes I have reviewed all pertinent clinical information, including history, physical exam and plan: Yes Notes (Text): I have seen and examined the patient at bedside. Agree with the above note with the following additions/ exceptions: Briefly this is 36 year with history of IDDM, HTN, dyslipidemia, wheel chair bound, 2 amputated toes of left leg and chronic LE ulcer who presented with severe sepsis secondary to acute pyelonephritis, osteomyelitis of L foot, Acute on chronic kidney disease and anemia. Continue daptomycin for MRSA of left foot and diflucan for yeast. She needs to complete 6 wks of IV abx. Patient underwent renal biopsy which showed pyelo. Discussed with Dr Preston who is recommending to obtain CT scan w contrast to r/o renal abscess. Second opinion was obtained regarding the need for HD and both underwriting account representative recommend that she needs exterminator HD. Currently she is agreeable to have HD. Will consult IR regarding tunneled catheter placement. Will discuss with SW regarding outpatient HD set up. Long-term prognosis is poor secondary to multiple medical problems and noncompliance with follow-up. Upon discharge patient will follow up with . Dr Agustin Parker
[2016-11-18] MEDS: Benzocaine/Menthol (Cepacol) Lozenge MT PRN ×2 (05:35→17:41)
[2016-11-18 07:09] LABS: BASO # 0.08 K/mm3 (0.0-2.0); BASO % 0.6 % (0.0-3.0); EOS # 0.4 (0.0-0.7); EOS % 2.9 % (1.5-5.0); GRAN # 9.73 (1.4-6.5); GRAN % 77.6 % (50.0-68.0); HEMATOCRIT 26.6 % (36.0-48.0); LYMPH # 1.5 (1.2-3.4); LYMPH % 12.2 % (22.0-35.0); MEAN CELL VOLUME 92.7 fl (80.0-105.0); MEAN CORPUSCULAR HEMOGLOBIN 28.2 pg (25.0-35.0); MEAN CORPUSCULAR HGB CONC 30.5 g/dl (31.0-37.0); MEAN PLATELET VOLUME 9.3 fl (7.0-11.0); MONO # 0.8 (0.1-0.6); MONO % 6.7 % (1.0-6.0); RED CELL DISTRIBUTION WIDTH 16.9 % (11.5-14.5); WHITE BLOOD COUNT 12.5 10^3/ul (4.5-11.0)
[2016-11-18] MEDS ORDERED: Insulin Lispro (humaLOG) MEDIUM Coverage SC ONE (07:30)
[2016-11-18 07:32] LABS: ALB/GLOB RATIO 0.6 (1.1-1.8); BILIRUBIN,TOTAL 0.3 mg/dL (0.2-1.3); CALCIUM 8.2 mg/dL (8.4-10.5); POTASSIUM 4.2 mmol/L (3.6-5.0); TOTAL PROTEIN 7.8 g/dL (5.8-8.3)
[2016-11-18] MEDS: Insulin Detemir 100 units/ml Vial (Levemir) SC SCH ×2 (09:58→17:40)
[2016-11-18] MEDS: Fluconazole IV 200mg/100 ml NS 100 MG in Premixed IV 1 EA IVPB SCH (10:02)
--- NOTE | 2016-11-18 11:48 | CP.PCM.PN ---
<Pedrito Lobo - Last Filed: 11/18/16 11:46> Subjective - Date & Time of Evaluation Date of Evaluation: 11/18/16 Time of Evaluation: 11:46 - Subjective Subjective: Podiatry Progress Note - Dr. Craven 36 year old female patient seen at bedside POD#19 left foot I&D (DOS: 10/31/16) with mother seen at bedside. Patient is seen resting comfortably in bed, AAOx3 and in NAD. Patient is seen wearing multipodus boots at the time of visitation. Patient denies N/V/C/SOB/calf pain. No pedal complaints at this time. Objective - Vital Signs/Intake and Output Vital Signs (last 24 hours): Temp Pulse Resp BP Pulse Ox 99.1 F 105 H 22 125/81 99 11/18/16 08:19 11/18/16 08:19 11/18/16 08:19 11/18/16 08:19 11/18/16 08:19 Intake and Output: 11/18/16 11/18/16 06:59 18:59 Intake Total 500 480 Output Total 500 375 Balance 0 105 - Medications Medications: Current Medications Acetaminophen (Tylenol 325mg Tab) 650 mg PO Q4 PRN PRN Reason: Pain, Mild (1-3) Artificial Tears (Artificial Tears) 0.2 ml OU DAILY PRN PRN Reason: Dry skin Last Admin: 11/07/16 10:25 Dose: 2 drop Benzocaine/Menthol (Cepacol Sore Throat) 1 trent MT BID PRN PRN Reason: Sore Throat Last Admin: 11/18/16 05:35 Dose: 1 trent Collagenase (Santyl) 0 gm TOP DAILY [facility] Last Admin: 11/18/16 10:07 Dose: 1 applic Furosemide (Lasix) 120 mg IVP 0600,1800 [facility] Last Admin: 11/18/16 05:30 Dose: 120 mg Fluconazole 100 mg/ (Miscellaneous) 50 mls @ 100 mls/hr IVPB DAILY [facility] PRN Reason: Protocol Last Admin: 11/18/16 10:02 Dose: 100 mls/hr Daptomycin 420 mg/ Sodium (Chloride) 100 mls @ 200 mls/hr IV QOTHERDAY [facility] Stop: 12/15/16 10:31 Last Admin: 11/17/16 11:56 Dose: 200 mls/hr Insulin Detemir (Levemir) 7 unit SC BID [facility] Last Admin: 11/18/16 09:58 Dose: 7 unit Insulin Human Lispro (Humalog Med) 0 units SC ACHS [facility] PRN Reason: Protocol Multi-Ingredient Cream (Hydrocerin Cream) 0 ea TOP BID [facility] Last Admin: 11/18/16 10:06 Dose: 1 unit Ondansetron HCl (Zofran Inj) 4 mg IVP Q6H PRN PRN Reason: Nausea/Vomiting Sodium Bicarbonate (Sodium Bicarbonate Tab) 3,900 mg PO QID [facility] Last Admin: 11/18/16 10:01 Dose: 3,900 mg - Labs Labs: 11/18/16 06:40 11/18/16 06:40 PT 13.2 Seconds (9.9-11.8) H 11/11/16 05:40 INR 1.22 (0.93-1.08) H 11/11/16 05:40 APTT 32.0 Seconds (23.7-30.8) H 11/11/16 05:40 - Constitutional Appears: Well, Non-toxic, No Acute Distress - Extremities Exam Additional comments: Left leg focused. Dressings are clean, dry, and intact. VASC: DP and PT pulses palpable 2/4 b/l. TG WNL b/l. No edema noted to left foot. NEURO: Gross sensation absent bilaterally. DERM: LLE = One uniform full thickness ulceration noted to left medial heel measuring approximately 3.6 x 2.8 x 1.1 cm with wound base appearing as a granular ring and fibrotic core no active drainage noted. No acute signs of infection. RLE = Nonblanchable patch of erythema noted to plantarposterior calcaneus. ORTHO: No pain on palpation noted to foot b/l. - Neurological Exam Neurological Exam: Alert, Awake, Oriented x3 - Psychiatric Exam Psychiatric exam: Normal Affect, Normal Mood Assessment and Plan - Assessment and Plan (Free Text) Assessment: 36 year old female 36 year old female PMHx IDDM, renal failure, sepsis, metabolic acidosis, UTI, CKD, anemia 1) s/p left foot incision and drainage with wound debridement; 2) Stage 1 pressure ulcer right heel Plan: Patient seen and evaluated at bedside Chart, vitals, labs reviewed - afebrile, WBC=12.5 Discussed the plan in detail with attending Dr. Craven Left foot wound culture = MRSA Urine culture - yeast Per ID, continue renally-adjusted Daptomycin; patient will need 6 weeks of abx Wounds cleansed with saline, dressed with Santyl, 4x4, Maxosorb, ABD, and kerlix. Patient to wear multipodus boots at all times while in bed to prevent progression of pressure ulcer formation R heel. Continue Eucerin cream bilateral LE BID Prognosis for limb salvage poor At this point, no further debridements are considered for left foot; will be seen in followup Podiatry will continue to follow patient while in house <Logan Craven - Last Filed: 11/19/16 09:20> Objective - Vital Signs/Intake and Output Vital Signs (last 24 hours): Temp Pulse Resp BP Pulse Ox 99 F 96 H 18 126/87 97 11/19/16 08:38 11/19/16 08:38 11/19/16 08:38 11/19/16 08:38 11/19/16 08:38 Intake and Output: 11/19/16 11/19/16 06:59 18:59 Intake Total 540 Output Total 675 Balance -135 - Medications Medications: Current Medications Acetaminophen (Tylenol 325mg Tab) 650 mg PO Q4 PRN PRN Reason: Pain, Mild (1-3) Artificial Tears (Artificial Tears) 0.2 ml OU DAILY PRN PRN Reason: Dry skin Last Admin: 11/07/16 10:25 Dose: 2 drop Benzocaine/Menthol (Cepacol Sore Throat) 1 trent MT BID PRN PRN Reason: Sore Throat Last Admin: 11/18/16 17:41 Dose: 1 trent Collagenase (Santyl) 0 gm TOP DAILY [facility] Last Admin: 11/18/16 10:07 Dose: 1 applic Furosemide (Lasix) 120 mg IVP 0600,1800 [facility] Last Admin: 11/19/16 06:11 Dose: 120 mg Fluconazole 100 mg/ (Miscellaneous) 50 mls @ 100 mls/hr IVPB DAILY [facility] PRN Reason: Protocol Last Admin: 11/18/16 10:02 Dose: 100 mls/hr Daptomycin 420 mg/ Sodium (Chloride) 100 mls @ 200 mls/hr IV QOTHERDAY [facility] Stop: 12/15/16 10:31 Last Admin: 11/17/16 11:56 Dose: 200 mls/hr Insulin Detemir (Levemir) 7 unit SC BID [facility] Last Admin: 11/18/16 17:40 Dose: 7 unit Insulin Human Lispro (Humalog Med) 0 units SC ACHS [facility] PRN Reason: Protocol Last Admin: 11/19/16 08:30 Dose: 1 units Multi-Ingredient Cream (Hydrocerin Cream) 0 ea TOP BID [facility] Last Admin: 11/18/16 18:01 Dose: Not Given Ondansetron HCl (Zofran Inj) 4 mg IVP Q6H PRN PRN Reason: Nausea/Vomiting Pantoprazole Sodium (Protonix Ec Tab) 40 mg PO DAILY [facility] Sodium Bicarbonate (Sodium Bicarbonate Tab) 3,900 mg PO QID [facility] Last Admin: 11/18/16 17:39 Dose: 3,900 mg - Labs Labs: 11/19/16 05:30 11/19/16 05:30 PT 13.2 Seconds (9.9-11.8) H 11/11/16 05:40 INR 1.22 (0.93-1.08) H 11/11/16 05:40 APTT 32.0 Seconds (23.7-30.8) H 11/11/16 05:40 Attending/Attestation - Attestation I have personally seen and examined this patient.: Yes I have fully participated in the care of the patient.: Yes I have reviewed all pertinent clinical information, including history, physical exam and plan: Yes
[2016-11-18] MEDS: Insulin Lispro (humaLOG) MEDIUM Coverage SC SCH ×3 (12:27→22:50)
--- NOTE | 2016-11-18 18:08 | CP.PCM.PN ---
Subjective - Date & Time of Evaluation Date of Evaluation: 11/18/16 Time of Evaluation: 10:40 - Subjective Subjective: Comfortable, not in distress, afebrile, still wants the HD catheter out. Objective - Vital Signs/Intake and Output Vital Signs (last 24 hours): Temp Pulse Resp BP Pulse Ox 99.1 F 105 H 22 125/81 99 11/18/16 08:19 11/18/16 08:19 11/18/16 08:19 11/18/16 08:19 11/18/16 08:19 Intake and Output: 11/18/16 11/18/16 06:59 18:59 Intake Total 500 480 Output Total 500 375 Balance 0 105 - Medications Medications: Current Medications Acetaminophen (Tylenol 325mg Tab) 650 mg PO Q4 PRN PRN Reason: Pain, Mild (1-3) Artificial Tears (Artificial Tears) 0.2 ml OU DAILY PRN PRN Reason: Dry skin Last Admin: 11/07/16 10:25 Dose: 2 drop Benzocaine/Menthol (Cepacol Sore Throat) 1 trent MT BID PRN PRN Reason: Sore Throat Last Admin: 11/18/16 05:35 Dose: 1 trent Collagenase (Santyl) 0 gm TOP DAILY [facility] Last Admin: 11/18/16 03:00 Dose: Not Given Furosemide (Lasix) 120 mg IVP 0600,1800 [facility] Last Admin: 11/18/16 05:30 Dose: 120 mg Fluconazole 100 mg/ (Miscellaneous) 50 mls @ 100 mls/hr IVPB DAILY [facility] PRN Reason: Protocol Last Admin: 11/17/16 11:57 Dose: 100 mls/hr Daptomycin 420 mg/ Sodium (Chloride) 100 mls @ 200 mls/hr IV QOTHERDAY [facility] Stop: 12/15/16 10:31 Last Admin: 11/17/16 11:56 Dose: 200 mls/hr Insulin Detemir (Levemir) 7 unit SC BID [facility] Last Admin: 11/17/16 18:24 Dose: 7 unit Insulin Human Lispro (Humalog Med) 0 units SC ACHS [facility] PRN Reason: Protocol Multi-Ingredient Cream (Hydrocerin Cream) 0 ea TOP BID [facility] Last Admin: 11/18/16 03:00 Dose: Not Given Ondansetron HCl (Zofran Inj) 4 mg IVP Q6H PRN PRN Reason: Nausea/Vomiting Sodium Bicarbonate (Sodium Bicarbonate Tab) 3,900 mg PO QID [facility] Last Admin: 11/15/16 14:34 Dose: 3,900 mg - Labs Labs: 11/18/16 06:40 11/18/16 06:40 PT 13.2 Seconds (9.9-11.8) H 11/11/16 05:40 INR 1.22 (0.93-1.08) H 11/11/16 05:40 APTT 32.0 Seconds (23.7-30.8) H 11/11/16 05:40 - Constitutional Appears: Non-toxic, No Acute Distress - Head Exam Head Exam: NORMAL INSPECTION - ENT Exam ENT Exam: Mucous Membranes Moist - Respiratory Exam Respiratory Exam: Decreased Breath Sounds - Cardiovascular Exam Cardiovascular Exam: +S1, +S2 - GI/Abdominal Exam GI & Abdominal Exam: Soft. absent: Tenderness - Extremities Exam Additional comments: left leg with dressings in place Assessment and Plan - Assessment and Plan (Free Text) Plan: Assessment Severe sepsis with acute renal failure due to acute pyelonephritis, with MRSA in the urine as well as left foot wound infection/abscess with MRSA, MRI showing osteomyelitis, S/P I and D POD #15 DM with diabetic neuropathy HTN history of right DVT bilateral foot ulcers Plan on renally-adjusted IV Daptomycin; repeat blood cx and urine negative are negative; PCT is 0.52, CXR shows decreased opacity from previous CXR MRI of left foot showing osteomyelitis - will need 6 weeks of antibiotics 2D echo does not show vegetations will need weekly ESR, CRP, CBC, CMP, CPK levels while on antibiotics; most recent CPK is 31 (2016) kidney biopsy is showing probable pyelonephritis / neutrophilic infiltration - the only organisms isolated were MRSA and yeast - will ask microlab to identify yeast in the urine and will continue DIflucan - discussed with Dr. Preston - he may also consider starting trial of systemic steroids and monitor kidney function
--- NOTE | 2016-11-18 19:28 | CP.PCM.PN ---
Subjective - Date & Time of Evaluation Date of Evaluation: 11/18/16 Time of Evaluation: 20:00 - Subjective Subjective: Patient did not want to be seen by me today; 2nd opinion from another environmental health and safety intern, Dr. Cardona, regarding need for HD obtained at patient's request ; I discussed the case with Dr. Cardona and primary team and consensus is that patient needs to continue with HD; she seems to be agreeable to tunneled cath placement; Objective - Vital Signs/Intake and Output Vital Signs (last 24 hours): Temp Pulse Resp BP Pulse Ox 99.1 F 98 H 20 127/87 98 11/18/16 16:00 11/18/16 16:00 11/18/16 16:00 11/18/16 17:48 11/18/16 16:00 Intake and Output: 11/18/16 11/19/16 18:59 06:59 Intake Total 1080 Output Total 375 Balance 705 - Medications Medications: Current Medications Acetaminophen (Tylenol 325mg Tab) 650 mg PO Q4 PRN PRN Reason: Pain, Mild (1-3) Artificial Tears (Artificial Tears) 0.2 ml OU DAILY PRN PRN Reason: Dry skin Last Admin: 11/07/16 10:25 Dose: 2 drop Benzocaine/Menthol (Cepacol Sore Throat) 1 t[address] MT BID PRN PRN Reason: Sore Throat Last Admin: 11/18/16 17:41 Dose: 1 trent Collagenase (Santyl) 0 gm TOP DAILY [facility] Last Admin: 11/18/16 10:07 Dose: 1 applic Furosemide (Lasix) 120 mg IVP 0600,1800 [facility] Last Admin: 11/18/16 17:48 Dose: 120 mg Fluconazole 100 mg/ (Miscellaneous) 50 mls @ 100 mls/hr IVPB DAILY [facility] PRN Reason: Protocol Last Admin: 11/18/16 10:02 Dose: 100 mls/hr Daptomycin 420 mg/ Sodium (Chloride) 100 mls @ 200 mls/hr IV QOTHERDAY [facility] Stop: 12/15/16 10:31 Last Admin: 11/17/16 11:56 Dose: 200 mls/hr Insulin Detemir (Levemir) 7 unit SC BID [facility] Last Admin: 11/18/16 17:40 Dose: 7 unit Insulin Human Lispro (Humalog Med) 0 units SC ACHS [facility] PRN Reason: Protocol Last Admin: 11/18/16 16:19 Dose: Not Given Multi-Ingredient Cream (Hydrocerin Cream) 0 ea TOP BID [facility] Last Admin: 11/18/16 18:01 Dose: Not Given Ondansetron HCl (Zofran Inj) 4 mg IVP Q6H PRN PRN Reason: Nausea/Vomiting Pantoprazole Sodium (Protonix Ec Tab) 40 mg PO DAILY [facility] Sodium Bicarbonate (Sodium Bicarbonate Tab) 3,900 mg PO QID [facility] Last Admin: 11/18/16 17:39 Dose: 3,900 mg - Labs Labs: 11/18/16 06:40 11/18/16 06:40 PT 13.2 Seconds (9.9-11.8) H 11/11/16 05:40 INR 1.22 (0.93-1.08) H 11/11/16 05:40 APTT 32.0 Seconds (23.7-30.8) H 11/11/16 05:40 Assessment and Plan (1) Acute renal failure Assessment & Plan: EMMETT on CKD; preliminary biopsy findings consistent with pyelonephritis despite patient having been on broad spectrum abx; discussed with ID data management consultant who agrees that imaging is necessary to rule out abcesses despite patient appearing clinically well; options are CT w/ IV contrast or MRI (without ROSE; there is literature that diffusion weighted imaging is useful in this setting) and so we will pursue the latter first to avoid the nephrotoxicity of iodinated conrast; Otherwise, patient's labs support need to resume HD; worsening metabolic acidosis; -HD tomorrow -Will discuss case with pathologist as more stains will be available by tomorrow ; -Holding off on any steroids for now (sugars already difficult to control); Status: Acute (2) CKD (chronic kidney disease) Assessment & Plan: DM nephropathy per biopsy findings; 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
--- NOTE | 2016-11-18 22:37 | CON ---
DATE: 11/18/2016 REFERRING PHYSICIAN: Dr. Talley. REASON FOR CONSULTATION: Second opinion regarding end-stage renal disease and acute kidney injury. HISTORY OF PRESENT ILLNESS: This is a 36-year-old female who was admitted to the hospital and was found to have acute kidney injury. The patent was found to have left foot wound with osteomyelitis. The patient had developed an infection. She has a history of CKD with a creatinine clearance in the past of 3.3 on 09/25/2016. During her hospital stay that started on 10/26/2016, the patient was found to have acute kidney injury and eventually had to be started to be dialysis after she did not have improvement of her renal function. I have been asked by the patient's primary doctor to evaluate for second opinion regarding the need for dialysis and I used the patient interview, review of the medical record and speaking to the staff including Dr. Preston, the patient's current supervisor burling and joining about the case. I reviewed the patient's old blood work, the workup that has been done so far to help make an assessment. The patient states that she has no complaints of any chest pain or shortness of breath, no headache. She is concerned that she is on dialysis and does not wish to be so. She is also complaining that she would like to be on medications to help with her protein that is in her urine and also the acidosis that developed in her body. She states, she is comfortable. She is tolerating her diet. She denies any swelling of her legs. She denies any nausea or vomiting. No hiccups. No dysuria or frequency. No weakness in the arm or the legs. All other review of symptoms are within normal limits. She does have difficulty in ambulating because of her issues with her foot. ALLERGIES: VANCOMYCIN. MEDICATIONS: Home medications as well as current hospital medications have been reviewed. PAST MEDICAL HISTORY: Hypertension, diabetes type 2, anemia, chronic kidney disease, and left leg DVT. PAST SURGICAL HISTORY: . She had left vascular surgery done. SOCIAL HISTORY: She is not smoking or drinking. She is disabled. She lives with her mother. PHYSICAL EXAMINATION: VITAL SIGNS: Temperature 99.1 with pulse of 101, blood pressure 162/115, respirations 20, O2 saturation 96%. Height is 5 feet 3 inches, weight is 154 pounds, BMI of 27.3. GENERAL: The patient lying in bed, uncomfortable, and in no acute distress. HEENT: Atraumatic and normocephalic. Anicteric sclerae. Moist mucosa. [place] conjunctivae. No oral lesions. NECK: No JVD, anterior and posterior adenopathy, thyromegaly, or bruits. CARDIOVASCULAR: S1 and S2 regular. No murmur, rubs, or gallop. LUNGS: Clear to auscultation bilaterally. No wheezes, rales, or rhonchi. ABDOMEN: Bowel sounds are positive. Soft, nontender and nondistended. No hepatosplenomegaly. No rebound and no guarding EXTREMITIES: No cyanosis, clubbing, or edema. NEUROLOGIC: No facial asymmetry. Tongue is midline. No uvula deviation. Power is 5/5 upper extremity and lower extremity. Sensation intact in upper extremity and lower extremity. PSYCHIATRIC: She is awake, alert and oriented x2. No anxiety or depression. She has blunted affect. GENITOURINARY: No CVA tenderness. VASCULAR: 2+ pulses in the carotid pulses and pedal pulses. SKIN: No erythema or nodules SPINE: Shows normal curvature. EXTREMITIES: Right extremity; right feet wrapped, unable to assess fully. LABORATORY DATA: Labs have been reviewed. Her creatinine is 6.1 today. It was 5.1 yesterday. She has white count of 12.5 and hemoglobin of 8.1. Her serology, immunology and other blood work have been reviewed. Chest x-ray showed an increased bilateral perihilar opacities, suspicion for congestive heart failure with pulmonary edema. Her kidney biopsy shows diabetic nephropathy class III with moderate interstitial fibrosis with tubular atrophy tubular lamina, interstitial inflammation seen. ASSESSMENT: 1. Acute kidney injury. 2. Chronic kidney disease stage IV. 3. Anemia. 4. Metabolic acidosis. 5. Congestive heart failure secondary to systolic dysfunction. 6. Osteomyelitis. PLAN: The patient currently has advanced kidney disease, most chronic as well as acute kidney injury. The patient's biopsy indicates that she has underlying diabetic nephropathy along with that she has global sclerosis. There is evidence of acute tubular injury. There is moderate interstitial fibrosis and tubular atrophy. She has low urine output. Her total urine output overnight is 500. The patient also has creatinine that is rising fairly quickly. Her creatinine was 5.1 yesterday and is 6.1 today. She was last dialyzed 2 days ago. The patient's bicarbonate level has decreased from 18 yesterday to 14 today, this rate I believe that the patient will have uremic symptoms and will need to continue dialysis. I did speak with the patient in length regarding her kidney issues and to let her know that she will most likely need to continue dialysis until her underlying acute condition improves. There is a possibility that given the fact that she has acute kidney injury, she may have improvement of her renal function. This may take some time as she has chronic kidney disease stage IV and there are patients who may improve weeks to months after the initial kidney injury. There is some inflammation in the interstitial area of the biopsy indicating that there may be some interstitial nephritis that could be contributing to the acute process as well. Given that the patient does not wish to be on dialysis, there may be role for short course of steroids. She does have hyperglycemia and this may worsen. I did review the notes that Dr. Preston wrote regarding this and agree that it may be a possible solution that is worth entertaining and giving the patient a short course of steroids may help. This will need to be okayed by infectious disease. I do not think that she has a severe infection that would worsen by giving a short course of steroids. This risk/benefits of this will need to be weighed. I agree with continuing the patient on diuretic therapy with Lasix, may be difficult to continue this high doses as an outpatient given that she can develop ototoxicity from such high doses. The patient is on sodium bicarbonate at high doses. This may also be difficult to maintain orally as an outpatient. The patient is currently on antibiotics with daptomycin and fluconazole. She is on Protonix daily. Protonix has been known to cause acute kidney injury. I would suggest to discontinuing Protonix if there is no significant need for it. The patient has cardiomyopathy with EF of 35%. The patient will most likely need a tunneled catheter and eventually surgical evaluation for possible fistula placement. It may be worthwhile to wait 2 to 3 weeks to see if her kidney function improves and continue her IV antibiotics; if after that period her renal function has not improved, then I would suggest evaluation for access to restart it so that a fistula can be placed in the future. Thank you for allowing me to participate in the care of your patient. I will sign off at this point. Case was discussed with Dr Agustin Parker. Kingsley Cardona MD AGBRIELLA
[2016-11-19 06:05] LABS: BASO # 0.07 K/mm3 (0.0-2.0); BASO % 0.5 % (0.0-3.0); EOS # 0.4 (0.0-0.7); EOS % 2.8 % (1.5-5.0); GRAN # 9.91 (1.4-6.5); HEMATOCRIT 25.3 % (36.0-48.0); LYMPH # 1.9 (1.2-3.4); LYMPH % 14.3 % (22.0-35.0); MEAN CORPUSCULAR HEMOGLOBIN 28.4 pg (25.0-35.0); MEAN CORPUSCULAR HGB CONC 30.8 g/dl (31.0-37.0); MEAN PLATELET VOLUME 9.4 fl (7.0-11.0); MONO # 0.8 (0.1-0.6); MONO % 6.4 % (1.0-6.0); RED CELL DISTRIBUTION WIDTH 16.9 % (11.5-14.5)
[2016-11-19 06:46] LABS: ALB/GLOB RATIO 0.6 (1.1-1.8); BILIRUBIN,TOTAL 0.4 mg/dL (0.2-1.3); CALCIUM 8.6 mg/dL (8.4-10.5); TOTAL PROTEIN 7.9 g/dL (5.8-8.3)
[2016-11-19] MEDS: Insulin Lispro (humaLOG) MEDIUM Coverage SC SCH ×4 (08:30→22:51)
--- NOTE | 2016-11-19 09:52 | CP.PCM.PN ---
<Pedrito Lobo - Last Filed: 11/19/16 09:48> Subjective - Date & Time of Evaluation Date of Evaluation: 11/19/16 Time of Evaluation: 09:48 - Subjective Subjective: Podiatry Progress Note - Dr. Craven 36 year old female patient seen at bedside POD#20 left foot I&D (DOS: 10/31/16) with mother seen at bedside. Patient is seen resting comfortably in bed awake this morning, AAOx3 and in NAD. Patient is seen wearing multipodus boots at the time of visitation. Patient denies N/V/C/SOB/calf pain. No pedal complaints at this time. Objective - Vital Signs/Intake and Output Vital Signs (last 24 hours): Temp Pulse Resp BP Pulse Ox 99 F 96 H 18 126/87 97 11/19/16 08:38 11/19/16 08:38 11/19/16 08:38 11/19/16 08:38 11/19/16 08:38 Intake and Output: 11/19/16 11/19/16 06:59 18:59 Intake Total 540 Output Total 675 Balance -135 - Medications Medications: Current Medications Acetaminophen (Tylenol 325mg Tab) 650 mg PO Q4 PRN PRN Reason: Pain, Mild (1-3) Artificial Tears (Artificial Tears) 0.2 ml OU DAILY PRN PRN Reason: Dry skin Last Admin: 11/07/16 10:25 Dose: 2 drop Benzocaine/Menthol (Cepacol Sore Throat) 1 trent MT BID PRN PRN Reason: Sore Throat Last Admin: 11/18/16 17:41 Dose: 1 tretn Collagenase (Santyl) 0 gm TOP DAILY [facility] Last Admin: 11/18/16 10:07 Dose: 1 applic Furosemide (Lasix) 120 mg IVP 0600,1800 [facility] Last Admin: 11/19/16 06:11 Dose: 120 mg Fluconazole 100 mg/ (Miscellaneous) 50 mls @ 100 mls/hr IVPB DAILY [facility] PRN Reason: Protocol Last Admin: 11/18/16 10:02 Dose: 100 mls/hr Daptomycin 420 mg/ Sodium (Chloride) 100 mls @ 200 mls/hr IV QOTHERDAY [facility] Stop: 12/15/16 10:31 Last Admin: 11/17/16 11:56 Dose: 200 mls/hr Insulin Detemir (Levemir) 7 unit SC BID [facility] Last Admin: 11/18/16 17:40 Dose: 7 unit Insulin Human Lispro (Humalog Med) 0 units SC ACHS [facility] PRN Reason: Protocol Last Admin: 11/19/16 08:30 Dose: 1 units Multi-Ingredient Cream (Hydrocerin Cream) 0 ea TOP BID [facility] Last Admin: 11/18/16 18:01 Dose: Not Given Ondansetron HCl (Zofran Inj) 4 mg IVP Q6H PRN PRN Reason: Nausea/Vomiting Pantoprazole Sodium (Protonix Ec Tab) 40 mg PO DAILY [facility] Sodium Bicarbonate (Sodium Bicarbonate Tab) 3,900 mg PO QID [facility] Last Admin: 11/18/16 17:39 Dose: 3,900 mg - Labs Labs: 11/19/16 05:30 11/19/16 05:30 PT 13.2 Seconds (9.9-11.8) H 11/11/16 05:40 INR 1.22 (0.93-1.08) H 11/11/16 05:40 APTT 32.0 Seconds (23.7-30.8) H 11/11/16 05:40 - Constitutional Appears: Well, Non-toxic, No Acute Distress - Extremities Exam Additional comments: Left leg focused. Dressings are clean, dry, and intact. VASC: DP and PT pulses palpable 2/4 b/l. TG WNL b/l. No edema noted to left foot. NEURO: Gross sensation absent bilaterally. DERM: LLE = One uniform full thickness ulceration noted to left medial heel measuring approximately 3.6 x 2.8 x 1.1 cm with wound base appearing as a granular ring and fibrotic core no active drainage noted. No acute signs of infection. RLE = Nonblanchable patch of erythema noted to plantarposterior calcaneus. ORTHO: No pain on palpation noted to foot b/l. - Neurological Exam Neurological Exam: Alert, Awake, Oriented x3 - Psychiatric Exam Psychiatric exam: Normal Affect, Normal Mood Assessment and Plan - Assessment and Plan (Free Text) Assessment: 36 year old female 36 year old female PMHx IDDM, renal failure, sepsis, metabolic acidosis, UTI, CKD, anemia 1) s/p left foot incision and drainage with wound debridement; 2) Stage 1 pressure ulcer right heel Plan: Patient seen and evaluated at bedside Chart, vitals, labs reviewed - afebrile, WBC=13.0 Discussed the plan in detail with attending Dr. Craven Left foot wound culture = MRSA Urine culture - yeast Per ID, continue renally-adjusted Daptomycin; patient will need 6 weeks of abx Wounds cleansed with saline, dressed with Santyl, 4x4, Maxosorb, ABD, and kerlix. Patient to wear multipodus boots at all times while in bed to prevent progression of pressure ulcer formation R heel. Patient may WBAT in [place] Heel Wedge to the left and surgical shoe to the right. [place] Heel Wedge must be worn to the left at all times when ambulating Continue Eucerin cream bilateral LE BID Prognosis for limb salvage poor At this point, no further debridements are considered for left foot; will be seen in followup Podiatry will continue to follow patient while in house <Logan Craven - Last Filed: 11/19/16 13:45> Objective - Vital Signs/Intake and Output Vital Signs (last 24 hours): Temp Pulse Resp BP Pulse Ox 99 F 96 H 18 126/87 97 11/19/16 08:38 11/19/16 08:38 11/19/16 08:38 11/19/16 08:38 11/19/16 08:38 Intake and Output: 11/19/16 11/19/16 06:59 18:59 Intake Total 540 Output Total 675 Balance -135 - Medications Medications: Current Medications Acetaminophen (Tylenol 325mg Tab) 650 mg PO Q4 PRN PRN Reason: Pain, Mild (1-3) Artificial Tears (Artificial Tears) 0.2 ml OU DAILY PRN PRN Reason: Dry skin Last Admin: 11/07/16 10:25 Dose: 2 drop Benzocaine/Menthol (Cepacol Sore Throat) 1 trent MT BID PRN PRN Reason: Sore Throat Last Admin: 11/18/16 17:41 Dose: 1 trent Collagenase (Santyl) 0 gm TOP DAILY [facility] Last Admin: 11/18/16 10:07 Dose: 1 applic Furosemide (Lasix) 120 mg IVP 0600,1800 [facility] Last Admin: 11/19/16 06:11 Dose: 120 mg Fluconazole 100 mg/ (Miscellaneous) 50 mls @ 100 mls/hr IVPB DAILY [facility] PRN Reason: Protocol Last Admin: 11/19/16 10:46 Dose: 100 mls/hr Daptomycin 420 mg/ Sodium (Chloride) 100 mls @ 200 mls/hr IV QOTHERDAY [facility] Stop: 12/15/16 10:31 Last Admin: 11/19/16 12:34 Dose: 200 mls/hr Insulin Detemir (Levemir) 7 unit SC BID [facility] Last Admin: 11/19/16 10:41 Dose: 7 unit Insulin Human Lispro (Humalog Med) 0 units SC ACHS [facility] PRN Reason: Protocol Last Admin: 11/19/16 12:20 Dose: 1 units Multi-Ingredient Cream (Hydrocerin Cream) 0 ea TOP BID [facility] Last Admin: 11/18/16 18:01 Dose: Not Given Ondansetron HCl (Zofran Inj) 4 mg IVP Q6H PRN PRN Reason: Nausea/Vomiting Pantoprazole Sodium (Protonix Ec Tab) 40 mg PO DAILY [facility] Last Admin: 11/19/16 10:40 Dose: 40 mg Sodium Bicarbonate (Sodium Bicarbonate Tab) 3,900 mg PO QID [facility] Last Admin: 11/18/16 17:39 Dose: 3,900 mg - Labs Labs: 11/19/16 05:30 11/19/16 05:30 PT 13.2 Seconds (9.9-11.8) H 11/11/16 05:40 INR 1.22 (0.93-1.08) H 11/11/16 05:40 APTT 32.0 Seconds (23.7-30.8) H 11/11/16 05:40 Attending/Attestation - Attestation I have personally seen and examined this patient.: Yes I have fully participated in the care of the patient.: Yes I have reviewed all pertinent clinical information, including history, physical exam and plan: Yes
--- NOTE | 2016-11-19 10:22 | CP.PCM.PN ---
<Ata Ackerman - Last Filed: 11/19/16 10:19> Subjective - Date & Time of Evaluation Date of Evaluation: 11/19/16 Time of Evaluation: 07:45 - Subjective Subjective: Subjective: Patient seen and examined at bedside. Resting comfortably in bed. No acute overnight events. Offers no new complaints at this time. Denies f/c/cp/sob/ abdominal pain/n/v/d/c/urinary sxs. Physical Examination: - Constitutional Appears: NAD - Head Exam Head Exam: ATRAUMATIC, NORMAL INSPECTION, NORMOCEPHALIC - Eye Exam Eye Exam: EOMI, Normal appearance, PERRL Pupil Exam: NORMAL ACCOMODATION, PERRL - ENT Exam ENT Exam: Mucous Membranes Moist, Normal Exam - Neck Exam Neck exam: Positive for: Normal Inspection - Respiratory Exam Respiratory Exam: Clear to Auscultation Bilateral, NORMAL BREATHING PATTERN - Cardiovascular Exam Cardiovascular Exam: REGULAR RHYTHM, +S1, +S2 - GI/Abdominal Exam GI & Abdominal Exam: Normal Bowel Sounds, Soft. absent: Tenderness - Extremities Exam Extremities exam: left foot bandaged - Back Exam Back exam: CVA tenderness (L), CVA tenderness (R) - Neurological Exam Neurological exam: Patient is awake, alert, responds to verbal stimuli, answers questions appropriately, follows commands, and moves extremities past midline - Psychiatric Exam Psychiatric exam: Normal Affect, Normal Mood Assessment and Plan: Worsening CKD - Cr remains elevated, Dr. 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, but may be able to eventually come off dialysis; will order MRI without ROSE - NAGMA noted- likely 2/2 diarrhea vs RTA IV; nephro recs- continue sodium bicarbonate tabs Septic Shock - Resolved - Repeat blood, urine, and stool cultures negative at this time - ID recommends continuing abx - L foot wound cx growing MRSA and corynebacterium LLE Osteomyelitis - s/p I&D - Will require 6 weeks of abx as per ID, will await recs - MRI L foot showed osteomyelitis of L calcaneus and diffuse plantar proximal aspect of L foot - wound care per podiatry- wound vac will be removed and the patient can follow with wound care when discharged. will continue follow while inpatient. - L Foot cx growing MRSA and corynbacterium Anemia likely 2/2 chronic dz - s/p 7u total pRBC transfused - Hgb 7.8 today - Dr. Weaver consulted- appreciate recs- note reviewed, patient does not want her care at this time as patient has Dr. Granados outpatient, as per note the patient claims she already completed a bone marrow biopsy and was recommended to take iron - kappa/lambda are elevated Hx DM - glucose levels remain elevated- monitor closely- advised to continue with recommended diet - continue with levemir 7 BID - ISS med Cardiomyopathy - ECHO shows EF of 35% - Cardiology consulted, Dr. Ryan- appreciate recommendations - c/w Coreg 6.25 BID and lasix PPX - protonix - no scds due to foot infection, no lovenox due to renal function, no heparin due to decreasing H/H Patien case discussed with and plan approved by attending physician, Dr. Parker. Objective - Vital Signs/Intake and Output Vital Signs (last 24 hours): Temp Pulse Resp BP Pulse Ox 99 F 96 H 18 126/87 97 11/19/16 08:38 11/19/16 08:38 11/19/16 08:38 11/19/16 08:38 11/19/16 08:38 Intake and Output: 11/19/16 11/19/16 06:59 18:59 Intake Total 540 Output Total 675 Balance -135 - Medications Medications: Current Medications Acetaminophen (Tylenol 325mg Tab) 650 mg PO Q4 PRN PRN Reason: Pain, Mild (1-3) Artificial Tears (Artificial Tears) 0.2 ml OU DAILY PRN PRN Reason: Dry skin Last Admin: 11/07/16 10:25 Dose: 2 drop Benzocaine/Menthol (Cepacol Sore Throat) 1 trent MT BID PRN PRN Reason: Sore Throat Last Admin: 11/18/16 17:41 Dose: 1 trent Collagenase (Santyl) 0 gm TOP DAILY [facility] Last Admin: 11/18/16 10:07 Dose: 1 applic Furosemide (Lasix) 120 mg IVP 0600,1800 [facility] Last Admin: 11/19/16 06:11 Dose: 120 mg Fluconazole 100 mg/ (Miscellaneous) 50 mls @ 100 mls/hr IVPB DAILY [facility] PRN Reason: Protocol Last Admin: 11/18/16 10:02 Dose: 100 mls/hr Daptomycin 420 mg/ Sodium (Chloride) 100 mls @ 200 mls/hr IV QOTHERDAY [facility] Stop: 12/15/16 10:31 Last Admin: 11/17/16 11:56 Dose: 200 mls/hr Insulin Detemir (Levemir) 7 unit SC BID [facility] Last Admin: 11/18/16 17:40 Dose: 7 unit Insulin Human Lispro (Humalog Med) 0 units SC ACHS [facility] PRN Reason: Protocol Last Admin: 11/19/16 08:30 Dose: 1 units Multi-Ingredient Cream (Hydrocerin Cream) 0 ea TOP BID [facility] Last Admin: 11/18/16 18:01 Dose: Not Given Ondansetron HCl (Zofran Inj) 4 mg IVP Q6H PRN PRN Reason: Nausea/Vomiting Pantoprazole Sodium (Protonix Ec Tab) 40 mg PO DAILY [facility] Sodium Bicarbonate (Sodium Bicarbonate Tab) 3,900 mg PO QID [facility] Last Admin: 11/18/16 17:39 Dose: 3,900 mg - Labs Labs: 11/19/16 05:30 11/19/16 05:30 PT 13.2 Seconds (9.9-11.8) H 11/11/16 05:40 INR 1.22 (0.93-1.08) H 11/11/16 05:40 APTT 32.0 Seconds (23.7-30.8) H 11/11/16 05:40 <Agustin Parker - Last Filed: 11/20/16 15:39> Objective - Vital Signs/Intake and Output Vital Signs (last 24 hours): Temp Pulse Resp BP Pulse Ox 98.4 F 95 H 98 H 124/87 97 11/19/16 16:00 11/19/16 16:00 11/19/16 16:00 11/19/16 17:55 11/19/16 08:38 Intake and Output: 11/19/16 11/19/16 06:59 18:59 Intake Total 540 Output Total 675 Balance -135 - Medications Medications: Current Medications Acetaminophen (Tylenol 325mg Tab) 650 mg PO Q4 PRN PRN Reason: Pain, Mild (1-3) Artificial Tears (Artificial Tears) 0.2 ml OU DAILY PRN PRN Reason: Dry skin Last Admin: 11/07/16 10:25 Dose: 2 drop Benzocaine/Menthol (Cepacol Sore Throat) 1 trent MT BID PRN PRN Reason: Sore Throat Last Admin: 11/19/16 16:07 Dose: 1 trent Collagenase (Santyl) 0 gm TOP DAILY [facility] Last Admin: 11/18/16 10:07 Dose: 1 applic Furosemide (Lasix) 120 mg IVP 0600,1800 [facility] Last Admin: 11/19/16 17:55 Dose: 120 mg Fluconazole 100 mg/ (Miscellaneous) 50 mls @ 100 mls/hr IVPB DAILY [facility] PRN Reason: Protocol Last Admin: 11/19/16 10:46 Dose: 100 mls/hr Daptomycin 420 mg/ Sodium (Chloride) 100 mls @ 200 mls/hr IV QOTHERDAY [facility] Stop: 12/15/16 10:31 Last Admin: 11/19/16 12:34 Dose: 200 mls/hr Insulin Detemir (Levemir) 7 unit SC BID [facility] Last Admin: 11/19/16 18:00 Dose: Not Given Insulin Human Lispro (Humalog Med) 0 units SC ACHS [facility] PRN Reason: Protocol Last Admin: 11/19/16 17:32 Dose: Not Given Multi-Ingredient Cream (Hydrocerin Cream) 0 ea TOP BID [facility] Last Admin: 11/19/16 18:04 Dose: Not Given Ondansetron HCl (Zofran Inj) 4 mg IVP Q6H PRN PRN Reason: Nausea/Vomiting Pantoprazole Sodium (Protonix Ec Tab) 40 mg PO DAILY [facility] Last Admin: 11/19/16 10:40 Dose: 40 mg Sodium Bicarbonate (Sodium Bicarbonate Tab) 3,900 mg PO QID [facility] Last Admin: 11/18/16 17:39 Dose: 3,900 mg - Labs Labs: 11/19/16 05:30 11/19/16 05:30 PT 13.2 Seconds (9.9-11.8) H 11/11/16 05:40 INR 1.22 (0.93-1.08) H 11/11/16 05:40 APTT 32.0 Seconds (23.7-30.8) H 11/11/16 05:40 Attending/Attestation - Attestation I have personally seen and examined this patient.: Yes I have fully participated in the care of the patient.: Yes I have reviewed all pertinent clinical information, including history, physical exam and plan: Yes Notes (Text): I have seen and examined the patient at bedside. Agree with the above note with the following additions/ exceptions: Briefly this is 36 year with history of IDDM, HTN, dyslipidemia, wheel chair bound, 2 amputated toes of left leg and chronic LE ulcer who presented with severe sepsis secondary to acute pyelonephritis, osteomyelitis of L foot, Acute on chronic kidney disease and anemia. Continue daptomycin for MRSA of left foot and diflucan for yeast. She needs to complete 6 wks of IV abx. Patient underwent renal biopsy which showed pyelo. Discussed with Dr Preston who is recommending to obtain CT scan w contrast to r/o renal abscess. 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 Currently she is agreeable to have HD. New tunneled catheter is in place. Will discuss with SW regarding outpatient HD set up. Long-term prognosis is poor secondary to multiple medical problems and noncompliance with follow-up. Upon discharge patient will follow up with . Dr Agustin Parker
[2016-11-19] MEDS ORDERED: Fluconazole IV 200mg/100 ml NS 100 ML IVPB ONE (10:38)
[2016-11-19] MEDS: Pantoprazole 40 mg EC Tab PO SCH (10:40)
[2016-11-19] MEDS: Insulin Detemir 100 units/ml Vial (Levemir) SC SCH ×2 (10:41→18:00)
[2016-11-19] MEDS: Fluconazole IV 200mg/100 ml NS 100 MG in Premixed IV 1 EA IVPB SCH (10:46)
[2016-11-19] MEDS: Benzocaine/Menthol (Cepacol) Lozenge MT PRN (16:07)
[2016-11-19] MEDS ORDERED: Lidocaine 2% Inj (20ml) ONE (17:11)
--- NOTE | 2016-11-19 17:47 | PN ---
DATE: 11/19/2016 SUBJECTIVE: The patient is in bed in no acute distress, was seen early. No changes overnight. PHYSICAL EXAMINATION: VITAL SIGNS: On exam, temperature is 99, blood pressure is 120/60, respiratory rate of 80. HEENT: Unremarkable. NECK: Supple. LUNGS: Decreased breath sounds. HEART: Normal S1, S2. ABDOMEN: Soft. LABORATORY DATA: Reveals a white count of 13,000, hemoglobin of 7, and platelets of 439. Urinalysis is noted and cultures are reviewed. ASSESSMENT/PLAN: This is a 36-year-old female with severe sepsis with acute renal failure due to acute pyelonephritis with methicillin-resistant Staphylococcus aureus in urine as well as left foot wound abscess and osteomyelitis with methicillin-resistant staphylococcus aureus, status post incision and drainage postprocedure day #16, and diabetic with diabetic neuropathy, hypertension, and renally adjusted IV daptomycin. Will need 6 weeks of antibiotics. Echo was negative for vegetations. Recommend a weekly CBC, SMA 18, sed rate, C-reactive protein, and a CPK. Dusty Crabtree MD
[2016-11-19] MEDS: Hydrocerin(120 gm) TOP SCH ×2 (18:04→18:54)
[2016-11-19] MEDS ORDERED: Midazolam 2 MG/2 ML VIAL ONE ×2 (18:24→18:57)
[2016-11-19] MEDS ORDERED: Sodium Chloride 0.9% 100 ML IV SCH (19:45)
[2016-11-19] MEDS ORDERED: Sodium Chloride 0.9% 1,000 ML IV SCH (20:00)
--- NOTE | 2016-11-19 23:22 | CP.PCM.PN ---
Subjective - Date & Time of Evaluation Date of Evaluation: 11/19/16 Time of Evaluation: 11:00 - Subjective Subjective: Reports feeling well; no leg edema; Objective - Vital Signs/Intake and Output Vital Signs (last 24 hours): Temp Pulse Resp BP Pulse Ox 98.1 F 88 20 138/95 H 99 11/19/16 20:20 11/19/16 20:20 11/19/16 20:20 11/19/16 20:20 11/19/16 20:20 Intake and Output: 11/19/16 11/20/16 18:59 06:59 Intake Total 360 Output Total 400 Balance -40 - Medications Medications: Current Medications Acetaminophen (Tylenol 325mg Tab) 650 mg PO Q4 PRN PRN Reason: Pain, Mild (1-3) Artificial Tears (Artificial Tears) 0.2 ml OU DAILY PRN PRN Reason: Dry skin Last Admin: 11/07/16 10:25 Dose: 2 drop Benzocaine/Menthol (Cepacol Sore Throat) 1 t[address] MT BID PRN PRN Reason: Sore Throat Last Admin: 11/19/16 16:07 Dose: 1 trent Collagenase (Santyl) 0 gm TOP DAILY [facility] Last Admin: 11/18/16 10:07 Dose: 1 applic Furosemide (Lasix) 120 mg IVP 0600,1800 [facility] Last Admin: 11/19/16 17:55 Dose: 120 mg Fluconazole 100 mg/ (Miscellaneous) 50 mls @ 100 mls/hr IVPB DAILY [facility] PRN Reason: Protocol Last Admin: 11/19/16 10:46 Dose: 100 mls/hr Daptomycin 420 mg/ Sodium (Chloride) 100 mls @ 200 mls/hr IV QOTHERDAY [facility] Stop: 12/15/16 10:31 Last Admin: 11/19/16 12:34 Dose: 200 mls/hr Sodium Chloride (Sodium Chloride 0.9%) 1,000 mls @ 75 mls/hr IV .[id number] [facility] Insulin Detemir (Levemir) 7 unit SC BID [facility] Last Admin: 11/19/16 18:00 Dose: Not Given Insulin Human Lispro (Humalog Med) 0 units SC ACHS [facility] PRN Reason: Protocol Last Admin: 11/19/16 22:51 Dose: Not Given Multi-Ingredient Cream (Hydrocerin Cream) 0 ea TOP BID [facility] Last Admin: 11/19/16 18:54 Dose: Not Given Ondansetron HCl (Zofran Inj) 4 mg IVP Q6H PRN PRN Reason: Nausea/Vomiting Pantoprazole Sodium (Protonix Ec Tab) 40 mg PO DAILY [facility] Last Admin: 11/19/16 10:40 Dose: 40 mg Sodium Bicarbonate (Sodium Bicarbonate Tab) 3,900 mg PO QID [facility] Last Admin: 11/18/16 17:39 Dose: 3,900 mg - Labs Labs: 11/19/16 05:30 11/19/16 05:30 PT 13.2 Seconds (9.9-11.8) H 11/11/16 05:40 INR 1.22 (0.93-1.08) H 11/11/16 05:40 APTT 32.0 Seconds (23.7-30.8) H 11/11/16 05:40 - Constitutional Appears: Non-toxic, No Acute Distress - Head Exam Head Exam: NORMAL INSPECTION - Eye Exam Eye Exam: Normal appearance. absent: Scleral icterus - ENT Exam ENT Exam: Mucous Membranes Moist - Respiratory Exam Respiratory Exam: Clear to Ausculation Bilateral, NORMAL BREATHING PATTERN. absent: Rales - Cardiovascular Exam Cardiovascular Exam: RRR, +S1, +S2 - GI/Abdominal Exam GI & Abdominal Exam: Soft. absent: Tenderness - Extremities Exam Additional comments: no leg edema; - Neurological Exam Neurological Exam: Alert, Awake - Psychiatric Exam Psychiatric exam: Normal Affect, Normal Mood - Skin Skin Exam: Warm. absent: Cyanosis Assessment and Plan (1) Acute renal failure Assessment & Plan: Secondary to pyelonephritis; CT w/ IV contrast in am to look for abcesses; being put on IVF w/ NS at 75 cc/hr overnight to avoid contrast nephropathy; HD being delayed till tomorrow for logistical reasons, tunneled cath placed today; Status: Acute (2) CKD (chronic kidney disease) Assessment & Plan: Due to diabetic nephropathy; will see full pathology report to assess degree of fibrosis as this will give overall renal prognosis even if EMMETT recovers; Status: Chronic (3) Anemia Assessment & Plan: On aranesp, continue; tranfuse for hgb < 7; Status: Acute (4) Metabolic acidosis Assessment & Plan: Persistent despite bicarb tabs; will correct with HD; Status: Acute (5) Sepsis Assessment & Plan: On antibiotic/anti-fungal coverage for osteo and pyelo; CT abd/pelvis as above; Status: Acute (6) CHF (congestive heart failure) Status: Acute
[2016-11-20 06:57] LABS: BASO # 0.05 K/mm3 (0.0-2.0); BASO % 0.4 % (0.0-3.0); EOS # 0.4 (0.0-0.7); EOS % 2.9 % (1.5-5.0); GRAN # 9.93 (1.4-6.5); HEMATOCRIT 25.3 % (36.0-48.0); LYMPH # 1.8 (1.2-3.4); LYMPH % 14.3 % (22.0-35.0); MEAN CELL VOLUME 91.3 fl (80.0-105.0); MEAN CORPUSCULAR HEMOGLOBIN 28.9 pg (25.0-35.0); MEAN CORPUSCULAR HGB CONC 31.6 g/dl (31.0-37.0); MEAN PLATELET VOLUME 9.1 fl (7.0-11.0); MONO # 0.7 (0.1-0.6); MONO % 5.4 % (1.0-6.0); RED CELL DISTRIBUTION WIDTH 16.6 % (11.5-14.5); WHITE BLOOD COUNT 12.9 10^3/ul (4.5-11.0)
[2016-11-20 07:25] LABS: ALB/GLOB RATIO 0.6 (1.1-1.8); BILIRUBIN,TOTAL 0.4 mg/dL (0.2-1.3); CALCIUM 8.5 mg/dL (8.4-10.5); POTASSIUM 4.6 mmol/L (3.6-5.0)
[2016-11-20] MEDS: Insulin Lispro (humaLOG) MEDIUM Coverage SC SCH ×4 (08:39→23:40)
[2016-11-20] MEDS ORDERED: Iodixanol 320 MG/ML 100 ML BOTTLE IV ONE (09:01)
--- NOTE | 2016-11-20 09:46 | CP.PCM.PN ---
<Pedrito Lobo - Last Filed: 11/20/16 09:43> Subjective - Date & Time of Evaluation Date of Evaluation: 11/20/16 Time of Evaluation: 09:43 - Subjective Subjective: Podiatry Progress Note - Dr. Craven 36 year old female patient seen at bedside POD#21 left foot I&D (DOS: 10/31/16) with mother seen at bedside. Patient is seen resting comfortably in bed awake this morning, AAOx3 and in NAD. Patient reports she has been working with physical therapy to sit up in bed and feels she is getting stronger. She has not tried to ambulate yet but has high hopes she will get there. Patient is seen wearing multipodus boots at the time of visitation. Dressing c/d/i. Patient denies N/V/C/SOB/calf pain. No pedal complaints at this time. Objective - Vital Signs/Intake and Output Vital Signs (last 24 hours): Temp Pulse Resp BP Pulse Ox 98.4 F 92 H 18 121/83 95 11/20/16 08:44 11/20/16 06:00 11/20/16 06:00 11/20/16 06:00 11/20/16 06:00 Intake and Output: 11/20/16 11/20/16 06:59 18:59 Intake Total 360 120 Output Total 400 275 Balance -40 -155 - Medications Medications: Current Medications Acetaminophen (Tylenol 325mg Tab) 650 mg PO Q4 PRN PRN Reason: Pain, Mild (1-3) Last Admin: 11/20/16 08:44 Dose: 650 mg Artificial Tears (Artificial Tears) 0.2 ml OU DAILY PRN PRN Reason: Dry skin Last Admin: 11/07/16 10:25 Dose: 2 drop Benzocaine/Menthol (Cepacol Sore Throat) 1 trent MT BID PRN PRN Reason: Sore Throat Last Admin: 11/19/16 16:07 Dose: 1 trent Collagenase (Santyl) 0 gm TOP DAILY [facility] Last Admin: 11/18/16 10:07 Dose: 1 applic Furosemide (Lasix) 120 mg IVP 0600,1800 [facility] Last Admin: 11/20/16 05:45 Dose: 120 mg Fluconazole 100 mg/ (Miscellaneous) 50 mls @ 100 mls/hr IVPB DAILY [facility] PRN Reason: Protocol Last Admin: 11/19/16 10:46 Dose: 100 mls/hr Daptomycin 420 mg/ Sodium (Chloride) 100 mls @ 200 mls/hr IV QOTHERDAY [facility] Stop: 12/15/16 10:31 Last Admin: 11/19/16 12:34 Dose: 200 mls/hr Sodium Chloride (Sodium Chloride 0.9%) 1,000 mls @ 75 mls/hr IV .[id number] [facility] Insulin Detemir (Levemir) 7 unit SC BID [facility] Last Admin: 11/19/16 18:00 Dose: Not Given Insulin Human Lispro (Humalog Med) 0 units SC ACHS [facility] PRN Reason: Protocol Last Admin: 11/20/16 08:39 Dose: 1 units Multi-Ingredient Cream (Hydrocerin Cream) 0 ea TOP BID [facility] Last Admin: 11/19/16 18:54 Dose: Not Given Ondansetron HCl (Zofran Inj) 4 mg IVP Q6H PRN PRN Reason: Nausea/Vomiting Pantoprazole Sodium (Protonix Ec Tab) 40 mg PO DAILY [facility] Last Admin: 11/19/16 10:40 Dose: 40 mg Sodium Bicarbonate (Sodium Bicarbonate Tab) 3,900 mg PO QID [facility] Last Admin: 11/18/16 17:39 Dose: 3,900 mg - Labs Labs: 11/20/16 06:51 11/20/16 06:51 PT 13.2 Seconds (9.9-11.8) H 11/11/16 05:40 INR 1.22 (0.93-1.08) H 11/11/16 05:40 APTT 32.0 Seconds (23.7-30.8) H 11/11/16 05:40 - Constitutional Appears: Well, Non-toxic, No Acute Distress - Extremities Exam Additional comments: Left leg focused. Dressings are clean, dry, and intact. VASC: DP and PT pulses palpable 2/4 b/l. TG WNL b/l. No edema noted to left foot. NEURO: Gross sensation absent bilaterally. DERM: LLE = One uniform full thickness ulceration noted to left medial heel measuring approximately 3.6 x 2.8 x 1.1 cm with wound base appearing as a granular ring and fibrotic core no active drainage noted. No acute signs of infection. RLE = Nonblanchable patch of erythema noted to plantarposterior calcaneus. ORTHO: No pain on palpation noted to foot b/l. - Neurological Exam Neurological Exam: Alert, Awake, Oriented x3 - Psychiatric Exam Psychiatric exam: Normal Affect, Normal Mood Assessment and Plan - Assessment and Plan (Free Text) Assessment: 36 year old female PMHx IDDM, renal failure, sepsis, metabolic acidosis, UTI, CKD, anemia 1) s/p left foot incision and drainage with wound debridement; 2) Stage 1 pressure ulcer right heel Plan: Patient seen and evaluated at bedside Chart, vitals, labs reviewed - afebrile, WBC=12.9 Discussed the plan in detail with attending Dr. Craven Left foot wound culture = MRSA Urine culture - yeast Per ID, continue renally-adjusted Daptomycin; patient will need 6 weeks of abx Wounds cleansed with saline, dressed with Santyl, 4x4, Maxosorb, ABD, and kerlix. Patient to wear multipodus boots at all times while in bed to prevent progression of pressure ulcer formation R heel. Patient may WBAT in Darco Heel Wedge to the left and surgical shoe to the right. Darco Heel Wedge must be worn to the left at all times when ambulating Continue Eucerin cream bilateral LE BID Prognosis for limb salvage poor At this point, no further debridements are considered for left foot; will be seen in followup Podiatry will continue to follow patient while in house <Logan Craevn - Last Filed: 11/21/16 07:28> Objective - Vital Signs/Intake and Output Vital Signs (last 24 hours): Temp Pulse Resp BP Pulse Ox 99.8 F H 105 H 20 148/103 H 98 11/20/16 16:00 11/21/16 01:10 11/20/16 16:00 11/21/16 06:23 11/20/16 16:00 Intake and Output: 11/21/16 11/21/16 06:59 18:59 Intake Total 620 Output Total 600 Balance 20 - Medications Medications: Current Medications Acetaminophen (Tylenol 325mg Tab) 650 mg PO Q4 PRN PRN Reason: Pain, Mild (1-3) Last Admin: 11/20/16 08:44 Dose: 650 mg Artificial Tears (Artificial Tears) 0.2 ml OU DAILY PRN PRN Reason: Dry skin Last Admin: 11/07/16 10:25 Dose: 2 drop Benzocaine/Menthol (Cepacol Sore Throat) 1 t[address] MT BID PRN PRN Reason: Sore Throat Last Admin: 11/21/16 01:11 Dose: 1 trent Collagenase (Santyl) 0 gm TOP DAILY [facility] Last Admin: 11/18/16 10:07 Dose: 1 applic Furosemide (Lasix) 120 mg IVP 0600,1800 [facility] Last Admin: 11/21/16 06:23 Dose: 120 mg Fluconazole 100 mg/ (Miscellaneous) 50 mls @ 100 mls/hr IVPB DAILY [facility] PRN Reason: Protocol Last Admin: 11/20/16 11:58 Dose: Not Given Daptomycin 420 mg/ Sodium (Chloride) 100 mls @ 200 mls/hr IV QOTHERDAY [facility] Stop: 12/15/16 10:31 Last Admin: 11/19/16 12:34 Dose: 200 mls/hr Insulin Detemir (Levemir) 7 unit SC BID [facility] Last Admin: 11/20/16 17:35 Dose: 7 unit Insulin Human Lispro (Humalog Med) 0 units SC ACHS [facility] PRN Reason: Protocol Last Admin: 11/20/16 23:40 Dose: Not Given Ondansetron HCl (Zofran Inj) 4 mg IVP Q6H PRN PRN Reason: Nausea/Vomiting Pantoprazole Sodium (Protonix Ec Tab) 40 mg PO DAILY [facility] Last Admin: 11/20/16 12:00 Dose: Not Given Sodium Bicarbonate (Sodium Bicarbonate Tab) 3,900 mg PO QID [facility] Last Admin: 11/18/16 17:39 Dose: 3,900 mg - Labs Labs: 11/20/16 06:51 11/20/16 06:51 PT 13.2 Seconds (9.9-11.8) H 11/11/16 05:40 INR 1.22 (0.93-1.08) H 11/11/16 05:40 APTT 32.0 Seconds (23.7-30.8) H 11/11/16 05:40 Attending/Attestation - Attestation I have personally seen and examined this patient.: Yes I have fully participated in the care of the patient.: Yes I have reviewed all pertinent clinical information, including history, physical exam and plan: Yes
[2016-11-20] MEDS: Benzocaine/Menthol (Cepacol) Lozenge MT PRN ×2 (10:00→18:50)
[2016-11-20] MEDS: Insulin Detemir 100 units/ml Vial (Levemir) SC SCH ×2 (10:00→17:35)
[2016-11-20] MEDS: Hydrocerin(120 gm) TOP SCH (11:00)
--- NOTE | 2016-11-20 11:38 | CT ---
PROCEDURE: CT Abdomen and Pelvis with contrast HISTORY: Pyelonephritis r/o abcess, (half dose IV contrast) COMPARISON: 10/26/2016 TECHNIQUE: Contrast dose: 95 cc of Visipaque Radiation dose: Total exam DLP = 390 mGy-cm. This CT exam was performed using one or more of the following dose reduction techniques: Automated exposure control, adjustment of the mA and/or kV according to patient size, and/or use of iterative reconstruction technique. FINDINGS: LOWER THORAX: Unremarkable. LIVER: Unremarkable. No gross lesion or ductal dilatation. GALLBLADDER AND BILE DUCTS: Unremarkable. PANCREAS: Unremarkable. No gross lesion or ductal dilatation. SPLEEN: Unremarkable. ADRENALS: Unremarkable. No mass. KIDNEYS AND URETERS: Multiple small fluid density lesions are seen in both kidneys. The largest are seen in the upper pole of the right kidney measuring 18 mm in diameter. Multiple smaller lesions are seen in both kidneys. The findings are nonspecific but are consistent with a history of pyelonephritis with abscess formation. The only prior study was performed without contrast. The lesions are not visible on that study. No discrete fluid collections can be seen on the prior ultrasound studies. Perinephric stranding is also seen around both kidneys there is also mural enhancement in the renal pelvis which is also consistent with pyelonephritis VASCULATURE: Unremarkable. No aortic aneurysm. BOWEL: Unremarkable. No obstruction. No gross mural thickening. APPENDIX: Normal appendix. PERITONEUM: There is a small amount of free fluid LYMPH NODES: Mildly enlarged inguinal lymph nodes BLADDER: Unremarkable. REPRODUCTIVE: Unremarkable. BONES: No acute fracture. OTHER FINDINGS: None. IMPRESSION: Multiple small fluid collections in both kidneys right greater than left. Perinephric stranding. Mural enhancement of the renal pelvis. Findings are consist with a history of pyelonephritis with abscess formation. See comments
[2016-11-20] MEDS: Fluconazole IV 200mg/100 ml NS 100 MG in Premixed IV 1 EA IVPB SCH (11:58)
[2016-11-20] MEDS: Pantoprazole 40 mg EC Tab PO SCH (12:00)
--- NOTE | 2016-11-20 12:07 | CP.PCM.PN ---
Addendum entered and electronically signed by Ata Ackerman DO 11/20/16 12:08: Correction to Physical Examination: Neck: Right tunneled IJ catheter in place. Original Note: <Ata Ackerman - Last Filed: 11/20/16 12:02> Subjective - Date & Time of Evaluation Date of Evaluation: 11/20/16 Time of Evaluation: 10:45 - Subjective Subjective: Subjective: Patient seen and examined at bedside. Resting comfortably in bed. No acute overnight events. States that she does not want the tunneled right IJ due to discomfort but willing to have HD today and have CT completed. Denies f/c/cp/ sob/abdominal pain/n/v/d/c/urinary sxs. Physical Examination: - Constitutional Appears: NAD - Head Exam Head Exam: ATRAUMATIC, NORMAL INSPECTION, NORMOCEPHALIC - Eye Exam Eye Exam: EOMI, Normal appearance, PERRL Pupil Exam: NORMAL ACCOMODATION, PERRL - ENT Exam ENT Exam: Mucous Membranes Moist, Normal Exam - Neck Exam Neck exam: Positive for: Normal Inspection - Respiratory Exam Respiratory Exam: Clear to Auscultation Bilateral, NORMAL BREATHING PATTERN - Cardiovascular Exam Cardiovascular Exam: REGULAR RHYTHM, +S1, +S2 - GI/Abdominal Exam GI & Abdominal Exam: Normal Bowel Sounds, Soft. absent: Tenderness - Extremities Exam Extremities exam: left foot bandaged - Back Exam Back exam: CVA tenderness (L), CVA tenderness (R) - Neurological Exam Neurological exam: Patient is awake, alert, responds to verbal stimuli, answers questions appropriately, follows commands, and moves extremities past midline - Psychiatric Exam Psychiatric exam: Normal Affect, Normal Mood Assessment and Plan: Worsening CKD - Cr remains elevated, Dr. Preston recs- renal biopsy completed showing MRSA and yeast, c/w Diflucan and daptomycin as per ID - Nephrology consulted, recs appreciated- long-term dialysis will be required, patient received tunneled catheter placement for intermediate dialysis- planning for HD today - IV contrast CT pending - NAGMA noted- likely 2/2 diarrhea vs RTA IV; nephro recs- continue sodium bicarbonate tabs Septic Shock - Resolved - Repeat blood, urine, and stool cultures negative at this time - ID recommends continuing abx - L foot wound cx growing MRSA and corynebacterium LLE Osteomyelitis - s/p I&D - Will require 6 weeks of abx as per ID, will await recs - MRI L foot showed osteomyelitis of L calcaneus and diffuse plantar proximal aspect of L foot - wound care per podiatry- wound vac will be removed and the patient can follow with wound care when discharged. will continue follow while inpatient. - L Foot cx growing MRSA and corynbacterium Anemia likely 2/2 chronic dz - s/p 7u total pRBC transfused - Hgb 8.0 today - Dr. Weaver consulted- appreciate recs- note reviewed, patient does not want her care at this time as patient has Dr. Granados outpatient, as per note the patient claims she already completed a bone marrow biopsy and was recommended to take iron - kappa/lambda are elevated Hx DM - glucose levels stalbe in the 100s- monitor closely- advised to continue with recommended diet - continue with levemir 7 BID - ISS med Cardiomyopathy - ECHO shows EF of 35% - Cardiology consulted, Dr. Ryan- appreciate recommendations - c/w Coreg 6.25 BID and lasix PPX - protonix - no scds due to foot infection, no lovenox due to renal function, no heparin due to decreasing H/H Patient case discussed with and plan approved by attending physician, Dr. Parker. Objective - Vital Signs/Intake and Output Vital Signs (last 24 hours): Temp Pulse Resp BP Pulse Ox 98.4 F 92 H 18 121/83 95 11/20/16 08:44 11/20/16 06:00 11/20/16 06:00 11/20/16 06:00 11/20/16 06:00 Intake and Output: 11/20/16 11/20/16 06:59 18:59 Intake Total 360 120 Output Total 400 275 Balance -40 -155 - Medications Medications: Current Medications Acetaminophen (Tylenol 325mg Tab) 650 mg PO Q4 PRN PRN Reason: Pain, Mild (1-3) Last Admin: 11/20/16 08:44 Dose: 650 mg Artificial Tears (Artificial Tears) 0.2 ml OU DAILY PRN PRN Reason: Dry skin Last Admin: 11/07/16 10:25 Dose: 2 drop Benzocaine/Menthol (Cepacol Sore Throat) 1 trent MT BID PRN PRN Reason: Sore Throat Last Admin: 11/20/16 10:00 Dose: 1 trent Collagenase (Santyl) 0 gm TOP DAILY [facility] Last Admin: 11/18/16 10:07 Dose: 1 applic Furosemide (Lasix) 120 mg IVP 0600,1800 [facility] Last Admin: 11/20/16 05:45 Dose: 120 mg Fluconazole 100 mg/ (Miscellaneous) 50 mls @ 100 mls/hr IVPB DAILY [facility] PRN Reason: Protocol Last Admin: 11/19/16 10:46 Dose: 100 mls/hr Daptomycin 420 mg/ Sodium (Chloride) 100 mls @ 200 mls/hr IV QOTHERDAY [facility] Stop: 12/15/16 10:31 Last Admin: 11/19/16 12:34 Dose: 200 mls/hr Sodium Chloride (Sodium Chloride 0.9%) 1,000 mls @ 75 mls/hr IV .[id number] [facility] Insulin Detemir (Levemir) 7 unit SC BID [facility] Last Admin: 11/20/16 10:00 Dose: 7 unit Insulin Human Lispro (Humalog Med) 0 units SC ACHS [facility] PRN Reason: Protocol Last Admin: 11/20/16 08:39 Dose: 1 units Ondansetron HCl (Zofran Inj) 4 mg IVP Q6H PRN PRN Reason: Nausea/Vomiting Pantoprazole Sodium (Protonix Ec Tab) 40 mg PO DAILY [facility] Last Admin: 11/19/16 10:40 Dose: 40 mg Sodium Bicarbonate (Sodium Bicarbonate Tab) 3,900 mg PO QID [facility] Last Admin: 11/18/16 17:39 Dose: 3,900 mg - Labs Labs: 11/20/16 06:51 11/20/16 06:51 PT 13.2 Seconds (9.9-11.8) H 11/11/16 05:40 INR 1.22 (0.93-1.08) H 11/11/16 05:40 APTT 32.0 Seconds (23.7-30.8) H 11/11/16 05:40 <Agustin Parker - Last Filed: 11/20/16 15:42> Objective - Vital Signs/Intake and Output Vital Signs (last 24 hours): Temp Pulse Resp BP Pulse Ox 98.4 F 92 H 18 121/83 95 11/20/16 08:44 11/20/16 06:00 11/20/16 06:00 11/20/16 06:00 11/20/16 06:00 Intake and Output: 11/20/16 11/20/16 06:59 18:59 Intake Total 360 480 Output Total 400 275 Balance -40 205 - Medications Medications: Current Medications Acetaminophen (Tylenol 325mg Tab) 650 mg PO Q4 PRN PRN Reason: Pain, Mild (1-3) Last Admin: 11/20/16 08:44 Dose: 650 mg Artificial Tears (Artificial Tears) 0.2 ml OU DAILY PRN PRN Reason: Dry skin Last Admin: 11/07/16 10:25 Dose: 2 drop Benzocaine/Menthol (Cepacol Sore Throat) 1 trent MT BID PRN PRN Reason: Sore Throat Last Admin: 11/20/16 10:00 Dose: 1 trent Collagenase (Santyl) 0 gm TOP DAILY [facility] Last Admin: 11/18/16 10:07 Dose: 1 applic Furosemide (Lasix) 120 mg IVP 0600,1800 [facility] Last Admin: 11/20/16 05:45 Dose: 120 mg Fluconazole 100 mg/ (Miscellaneous) 50 mls @ 100 mls/hr IVPB DAILY [facility] PRN Reason: Protocol Last Admin: 11/20/16 11:58 Dose: Not Given Daptomycin 420 mg/ Sodium (Chloride) 100 mls @ 200 mls/hr IV QOTHERDAY [facility] Stop: 12/15/16 10:31 Last Admin: 11/19/16 12:34 Dose: 200 mls/hr Sodium Chloride (Sodium Chloride 0.9%) 1,000 mls @ 75 mls/hr IV .[id number] [facility] Last Admin: 11/20/16 12:01 Dose: 75 mls/hr Insulin Detemir (Levemir) 7 unit SC BID [facility] Last Admin: 11/20/16 10:00 Dose: 7 unit Insulin Human Lispro (Humalog Med) 0 units SC ACHS [facility] PRN Reason: Protocol Last Admin: 11/20/16 11:59 Dose: Not Given Ondansetron HCl (Zofran Inj) 4 mg IVP Q6H PRN PRN Reason: Nausea/Vomiting Pantoprazole Sodium (Protonix Ec Tab) 40 mg PO DAILY [facility] Last Admin: 11/20/16 12:00 Dose: Not Given Sodium Bicarbonate (Sodium Bicarbonate Tab) 3,900 mg PO QID [facility] Last Admin: 11/18/16 17:39 Dose: 3,900 mg - Labs Labs: 11/20/16 06:51 11/20/16 06:51 PT 13.2 Seconds (9.9-11.8) H 11/11/16 05:40 INR 1.22 (0.93-1.08) H 11/11/16 05:40 APTT 32.0 Seconds (23.7-30.8) H 11/11/16 05:40 Attending/Attestation - Attestation I have personally seen and examined this patient.: Yes I have fully participated in the care of the patient.: Yes I have reviewed all pertinent clinical information, including history, physical exam and plan: Yes Notes (Text): I have seen and examined the patient at bedside. Agree with the above note with the following additions/ exceptions: Briefly this is 36 year with history of IDDM, HTN, dyslipidemia, wheel chair bound, 2 amputated toes of left leg and chronic LE ulcer who presented with severe sepsis secondary to acute pyelonephritis, osteomyelitis of L foot, Acute on chronic kidney disease and anemia. Continue daptomycin for MRSA of left foot and diflucan for yeast. She needs to complete 6 wks of IV dapto. Patient underwent renal biopsy which showed pyelo. Discussed with Dr Preston who is recommending to obtain CT scan w contrast to r/o renal abscess. Patient is going for CT scan now and is scheduled for HD later. She was also given IVF overnight. Second opinion was obtained regarding the need for HD and both community specialist recommend that she needs intermediate HD. Currently she is agreeable to have HD. New tunneled catheter is in place. Will discuss with LILLI regarding outpatient HD set up. Long- term prognosis is poor secondary to multiple medical problems and noncompliance with follow-up. Upon discharge patient will follow up with . Dr Agustin Parker
--- NOTE | 2016-11-20 17:37 | PN ---
DATE: 11/20/2016 SUBJECTIVE: The patient is in bed in no acute distress. PHYSICAL EXAMINATION: VITAL SIGNS: On exam, temperature is 98, blood pressure is 130/90, respiratory rate of 20, heart rate of 88. HEENT: Examination is unremarkable. NECK: Supple. LUNGS: Decreased breath sounds. HEART: Exam has normal S1, S2. ABDOMEN: Emanation is soft, nontender. LABORATORY EXAMINATION: Reveals a white count of 12,900, hemoglobin of 8, platelets of 446, BUN of 78, creatinine of 7.3. Urinalysis is noted and microbiology is noted. ASSESSMENT AND PLAN: A 36-year-old female with severe sepsis, acute renal failure due to acute pyelonephritis, methicillin-resistant Staphylococcus aureus in the urine, left foot abscess, osteomyelitis with methicillin-resistant Staphylococcus aureus, status post incision and drainage, day #17 of daptomycin the patient with diabetes mellitus, diabetic neuropathy, hypertension, renal adjusted daptomycin, 4-6 weeks of antibiotics, today is day #17. Echo was negative for vegetations and the patient had a CT scan of the abdomen and pelvis today, which showed multiple small fluid collections in both kidneys, right greater than left, perinephric stranding consistent with a history of pyelonephritis with abscess formation.. Dr. Ackerman's note is reviewed. Should have Dr. Josemanuel Handy review the CT scan. Possible IR-guided drainage Dusty Crabtree MD
--- NOTE | 2016-11-20 20:13 | CP.PCM.PN ---
Subjective - Date & Time of Evaluation Date of Evaluation: 11/20/16 Time of Evaluation: 20:00 - Subjective Subjective: Patient reports feeling well; no difficulty breathing; tolerating diet well; restarted on HD today; Objective - Vital Signs/Intake and Output Vital Signs (last 24 hours): Temp Pulse Resp BP Pulse Ox 99.8 F H 109 H 20 159/104 H 98 11/20/16 16:00 11/20/16 16:00 11/20/16 16:00 11/20/16 17:31 11/20/16 16:00 Intake and Output: 11/20/16 11/21/16 18:59 06:59 Intake Total 480 Output Total 275 Balance 205 - Medications Medications: Current Medications Acetaminophen (Tylenol 325mg Tab) 650 mg PO Q4 PRN PRN Reason: Pain, Mild (1-3) Last Admin: 11/20/16 08:44 Dose: 650 mg Artificial Tears (Artificial Tears) 0.2 ml OU DAILY PRN PRN Reason: Dry skin Last Admin: 11/07/16 10:25 Dose: 2 drop Benzocaine/Menthol (Cepacol Sore Throat) 1 trent MT BID PRN PRN Reason: Sore Throat Last Admin: 11/20/16 18:50 Dose: 1 trent Clonidine HCl (Catapres) 0.1 mg PO STAT STA Stop: 11/20/16 20:12 Collagenase (Santyl) 0 gm TOP DAILY [facility] Last Admin: 11/18/16 10:07 Dose: 1 applic Furosemide (Lasix) 120 mg IVP 0600,1800 [facility] Last Admin: 11/20/16 17:31 Dose: 120 mg Fluconazole 100 mg/ (Miscellaneous) 50 mls @ 100 mls/hr IVPB DAILY [facility] PRN Reason: Protocol Last Admin: 11/20/16 11:58 Dose: Not Given Daptomycin 420 mg/ Sodium (Chloride) 100 mls @ 200 mls/hr IV QOTHERDAY [facility] Stop: 12/15/16 10:31 Last Admin: 11/19/16 12:34 Dose: 200 mls/hr Insulin Detemir (Levemir) 7 unit SC BID [facility] Last Admin: 11/20/16 17:35 Dose: 7 unit Insulin Human Lispro (Humalog Med) 0 units SC ACHS [facility] PRN Reason: Protocol Last Admin: 11/20/16 17:17 Dose: Not Given Ondansetron HCl (Zofran Inj) 4 mg IVP Q6H PRN PRN Reason: Nausea/Vomiting Pantoprazole Sodium (Protonix Ec Tab) 40 mg PO DAILY [facility] Last Admin: 11/20/16 12:00 Dose: Not Given Sodium Bicarbonate (Sodium Bicarbonate Tab) 3,900 mg PO QID [facility] Last Admin: 11/18/16 17:39 Dose: 3,900 mg - Labs Labs: 11/20/16 06:51 11/20/16 06:51 PT 13.2 Seconds (9.9-11.8) H 11/11/16 05:40 INR 1.22 (0.93-1.08) H 11/11/16 05:40 APTT 32.0 Seconds (23.7-30.8) H 11/11/16 05:40 - Constitutional Appears: Non-toxic, No Acute Distress - Head Exam Head Exam: NORMAL INSPECTION - Eye Exam Eye Exam: Normal appearance - ENT Exam ENT Exam: Mucous Membranes Moist - Respiratory Exam Respiratory Exam: Clear to Ausculation Bilateral, NORMAL BREATHING PATTERN - Cardiovascular Exam Cardiovascular Exam: REGULAR RHYTHM, +S1, +S2 - GI/Abdominal Exam GI & Abdominal Exam: Soft. absent: Distended, Tenderness - Exam Additional comments: shivani pus in [place]; - Extremities Exam Additional comments: no leg edema; - Psychiatric Exam Psychiatric exam: Normal Affect, Normal Mood - Skin Skin Exam: Warm. absent: Cyanosis Assessment and Plan (1) Acute renal failure Assessment & Plan: EMMETT on CKD; HD dependent since admission, restarted HD today after giving yet another trial of holding HD; renal biopsy consistent with pyelonephritis and CT w/ contrast today showing multiple b/l fluid collections consistent with abcesses; question is whether drainage of the 2 larger abcesses (1.7 and 1.8 cm sizes, both on R) is feasible and beneficial as the pyelonephritis is bilateral , and so the drainage alone is not expected to improve renal function; however, in discussion with ID, abx alone may not be sufficient for the abcesses; -will discuss with IR regarding abcess drainage -continue HD qMWF Status: Acute (2) CKD (chronic kidney disease) Assessment & Plan: Secondary to DM nephropathy; patient counseled on need for intermediate card tender glycemic control; Status: Chronic (3) Anemia Assessment & Plan: Due to renal failure; hgb stable on aranesp weekly, continue; Status: Acute (4) Metabolic acidosis Assessment & Plan: Continues to progress, will be corrected with HD; Status: Acute (5) Sepsis Assessment & Plan: On dapto and fluconazole; will continue to need abx in setting of both OM and severe pyelonephritis; Status: Acute (6) CHF (congestive heart failure) Assessment & Plan: Asymptomatic currently; continue lasix 120 mg IV q12h on non-HD days; Status: Acute
[2016-11-21] MEDS: Benzocaine/Menthol (Cepacol) Lozenge MT PRN ×2 (01:11→17:25)
[2016-11-21 08:26] LABS: ALB/GLOB RATIO 0.6 (1.1-1.8); BASO # 0.06 K/mm3 (0.0-2.0); BASO % 0.4 % (0.0-3.0); BILIRUBIN,TOTAL 0.5 mg/dL (0.2-1.3); CALCIUM 8.2 mg/dL (8.4-10.5); EOS # 0.4 (0.0-0.7); EOS % 2.8 % (1.5-5.0); GRAN # 11.75 (1.4-6.5); GRAN % 81.2 % (50.0-68.0); HEMATOCRIT 27.8 % (36.0-48.0); LYMPH # 1.4 (1.2-3.4); LYMPH % 9.9 % (22.0-35.0); MEAN CELL VOLUME 90.8 fl (80.0-105.0); MEAN CORPUSCULAR HEMOGLOBIN 28.4 pg (25.0-35.0); MEAN CORPUSCULAR HGB CONC 31.3 g/dl (31.0-37.0); MEAN PLATELET VOLUME 9.1 fl (7.0-11.0); MONO # 0.8 (0.1-0.6); MONO % 5.7 % (1.0-6.0); RED CELL DISTRIBUTION WIDTH 16.9 % (11.5-14.5); TOTAL PROTEIN 8.3 g/dL (5.8-8.3); WHITE BLOOD COUNT 14.5 10^3/ul (4.5-11.0)
[2016-11-21] MEDS: Insulin Lispro (humaLOG) MEDIUM Coverage SC SCH ×4 (08:31→21:43)
[2016-11-21] MEDS: Fluconazole IV 200mg/100 ml NS 100 MG in Premixed IV 1 EA IVPB SCH (10:16)
[2016-11-21] MEDS: Insulin Detemir 100 units/ml Vial (Levemir) SC SCH ×2 (10:17→17:28)
[2016-11-21] MEDS: Pantoprazole 40 mg EC Tab PO SCH (10:18)
[2016-11-21] MEDS: Collagenase 250 Units/gm Ointment(30 gm) TOP SCH (10:24)
--- NOTE | 2016-11-21 11:40 | CP.PCM.PN ---
<Pedrito Lobo - Last Filed: 11/21/16 11:36> Subjective - Date & Time of Evaluation Date of Evaluation: 11/21/16 Time of Evaluation: 11:36 - Subjective Subjective: Podiatry Progress Note - Dr. Craven 36 year old female patient seen at bedside POD#22 left foot I&D (DOS: 10/31/16) with mother seen at bedside. Patient is seen resting comfortably in bed awake this morning, AAOx3 and in NAD. Patient reports she has been working with physical therapy to sit up in bed. She states she has been doing hip exercises with PT. Patient is seen wearing multipodus boots at the time of visitation. Dressing c/d/i. Patient denies N/V/C/F/SOB/calf pain. No pedal complaints at this time. Objective - Vital Signs/Intake and Output Vital Signs (last 24 hours): Temp Pulse Resp BP Pulse Ox 98.6 F 98 H 18 148/103 H 99 11/21/16 08:38 11/21/16 08:38 11/21/16 08:38 11/21/16 06:23 11/21/16 08:38 Intake and Output: 11/21/16 11/21/16 06:59 18:59 Intake Total 620 Output Total 600 Balance 20 - Medications Medications: Current Medications Acetaminophen (Tylenol 325mg Tab) 650 mg PO Q4 PRN PRN Reason: Pain, Mild (1-3) Last Admin: 11/20/16 08:44 Dose: 650 mg Artificial Tears (Artificial Tears) 0.2 ml OU DAILY PRN PRN Reason: Dry skin Last Admin: 11/07/16 10:25 Dose: 2 drop Benzocaine/Menthol (Cepacol Sore Throat) 1 trent MT BID PRN PRN Reason: Sore Throat Last Admin: 11/21/16 01:11 Dose: 1 trent Collagenase (Santyl) 0 gm TOP DAILY [facility] Last Admin: 11/21/16 10:24 Dose: Not Given Furosemide (Lasix) 120 mg IVP 0600,1800 [facility] Last Admin: 11/21/16 06:23 Dose: 120 mg Fluconazole 100 mg/ (Miscellaneous) 50 mls @ 100 mls/hr IVPB DAILY [facility] PRN Reason: Protocol Last Admin: 10/12/17 10:16 Dose: 100 mls/hr Daptomycin 420 mg/ Sodium (Chloride) 100 mls @ 200 mls/hr IV QOTHERDAY [facility] Stop: 12/15/16 10:31 Last Admin: 11/21/16 10:18 Dose: 200 mls/hr Insulin Detemir (Levemir) 7 unit SC BID [facility] Last Admin: 11/21/16 10:17 Dose: 7 unit Insulin Human Lispro (Humalog Med) 0 units SC ACHS [facility] PRN Reason: Protocol Last Admin: 11/21/16 08:31 Dose: 3 units Ondansetron HCl (Zofran Inj) 4 mg IVP Q6H PRN PRN Reason: Nausea/Vomiting Pantoprazole Sodium (Protonix Ec Tab) 40 mg PO DAILY [facility] Last Admin: 11/21/16 10:18 Dose: 40 mg Sodium Bicarbonate (Sodium Bicarbonate Tab) 3,900 mg PO QID [facility] Last Admin: 11/18/16 17:39 Dose: 3,900 mg - Labs Labs: 11/21/16 08:10 11/21/16 08:10 PT 13.2 Seconds (9.9-11.8) H 11/11/16 05:40 INR 1.22 (0.93-1.08) H 11/11/16 05:40 APTT 32.0 Seconds (23.7-30.8) H 11/11/16 05:40 - Constitutional Appears: Well, Non-toxic - Extremities Exam Additional comments: Left leg focused. Dressings are clean, dry, and intact with no strikethrough noted. VASC: DP and PT pulses palpable 2/4 b/l. TG WNL b/l. No edema noted to left foot. NEURO: Gross sensation absent bilaterally. DERM: LLE = One uniform full thickness ulceration noted to left medial heel measuring approximately 3.6 x 2.8 x 1.1 cm with wound base appearing as a granular ring and fibrotic core no active drainage noted. No acute signs of infection. RLE = Nonblanchable patch of erythema noted to plantarposterior calcaneus. ORTHO: No pain on palpation noted to foot b/l. - Neurological Exam Neurological Exam: Alert, Awake, Oriented x3 - Psychiatric Exam Psychiatric exam: Normal Affect, Normal Mood Assessment and Plan - Assessment and Plan (Free Text) Assessment: 36 year old female PMHx IDDM, renal failure, sepsis, metabolic acidosis, UTI, CKD, anemia 1) s/p left foot incision and drainage with wound debridement; 2) Stage 1 pressure ulcer right heel Plan: Patient seen and evaluated at bedside Chart, vitals, labs reviewed - afebrile, WBC=14.5 Discussed the plan in detail with attending Dr. Craven Left foot wound culture = MRSA Urine culture - yeast Per ID, continue renally-adjusted Daptomycin; patient will need 6 weeks of abx Wounds cleansed with saline, dressed with Santyl, 4x4, Maxosorb, ABD, and kerlix. Patient to wear multipodus boots at all times while in bed to prevent progression of pressure ulcer formation R heel. Patient may WBAT in Darco Heel Wedge to the left and surgical shoe to the right. Darco Heel Wedge must be worn to the left at all times when ambulating Continue Eucerin cream bilateral LE BID Prognosis for limb salvage poor At this point, no further debridements are considered for left foot; will be seen in followup Podiatry will continue to follow patient while in house <Logan Craven - Last Filed: 11/21/16 18:17> Objective - Vital Signs/Intake and Output Vital Signs (last 24 hours): Temp Pulse Resp BP Pulse Ox 99.0 F 100 H 19 149/95 H 97 11/21/16 17:55 11/21/16 17:55 11/21/16 17:55 11/21/16 17:55 11/21/16 17:55 Intake and Output: 11/21/16 11/21/16 06:59 18:59 Intake Total 620 Output Total 600 Balance 20 - Medications Medications: Current Medications Acetaminophen (Tylenol 325mg Tab) 650 mg PO Q4 PRN PRN Reason: Pain, Mild (1-3) Last Admin: 11/20/16 08:44 Dose: 650 mg Artificial Tears (Artificial Tears) 0.2 ml OU DAILY PRN PRN Reason: Dry skin Last Admin: 11/07/16 10:25 Dose: 2 drop Benzocaine/Menthol (Cepacol Sore Throat) 1 trent MT BID PRN PRN Reason: Sore Throat Last Admin: 11/21/16 17:25 Dose: 1 trent Collagenase (Santyl) 0 gm TOP DAILY [facility] Last Admin: 11/21/16 10:24 Dose: Not Given Furosemide (Lasix) 120 mg IVP 0600,1800 [facility] Last Admin: 11/21/16 17:26 Dose: 120 mg Fluconazole 100 mg/ (Miscellaneous) 50 mls @ 100 mls/hr IVPB DAILY [facility] PRN Reason: Protocol Last Admin: 11/21/16 10:16 Dose: 100 mls/hr Daptomycin 420 mg/ Sodium (Chloride) 100 mls @ 200 mls/hr IV QOTHERDAY [facility] Stop: 12/15/16 10:31 Last Admin: 11/21/16 10:18 Dose: 200 mls/hr Insulin Detemir (Levemir) 7 unit SC BID [facility] Last Admin: 11/21/16 17:28 Dose: 7 unit Insulin Human Lispro (Humalog Med) 0 units SC ACHS [facility] PRN Reason: Protocol Last Admin: 11/21/16 17:25 Dose: Not Given Ondansetron HCl (Zofran Inj) 4 mg IVP Q6H PRN PRN Reason: Nausea/Vomiting Pantoprazole Sodium (Protonix Ec Tab) 40 mg PO DAILY [facility] Last Admin: 11/21/16 10:18 Dose: 40 mg Sodium Bicarbonate (Sodium Bicarbonate Tab) 3,900 mg PO QID [facility] Last Admin: 11/18/16 17:39 Dose: 3,900 mg - Labs Labs: 11/21/16 08:10 11/21/16 08:10 PT 13.2 Seconds (9.9-11.8) H 11/11/16 05:40 INR 1.22 (0.93-1.08) H 11/11/16 05:40 APTT 32.0 Seconds (23.7-30.8) H 11/11/16 05:40 Attending/Attestation - Attestation I have personally seen and examined this patient.: Yes I have fully participated in the care of the patient.: Yes I have reviewed all pertinent clinical information, including history, physical exam and plan: Yes
--- NOTE | 2016-11-21 12:40 | CP.PCM.PN ---
<Ata Ackerman - Last Filed: 11/21/16 12:33> Subjective - Date & Time of Evaluation Date of Evaluation: 11/21/16 Time of Evaluation: 10:15 - Subjective Subjective: Subjective: Patient seen and examined at bedside. Resting comfortably in bed. Patient tachy in 100s overnight and diastolic BP elevated in 100s both of which have resolved. Offers no new complaints. Denies f/c/cp/sob/abdominal pain/n/v/d/c/ urinary sxs. Physical Examination: - Constitutional Appears: NAD - Head Exam Head Exam: ATRAUMATIC, NORMAL INSPECTION, NORMOCEPHALIC - Eye Exam Eye Exam: EOMI, Normal appearance, PERRL Pupil Exam: NORMAL ACCOMODATION, PERRL - ENT Exam ENT Exam: Mucous Membranes Moist, Normal Exam - Respiratory Exam Respiratory Exam: Clear to Auscultation Bilateral, NORMAL BREATHING PATTERN - Cardiovascular Exam Cardiovascular Exam: REGULAR RHYTHM, +S1, +S2 - GI/Abdominal Exam GI & Abdominal Exam: Normal Bowel Sounds, Soft. absent: Tenderness - Extremities Exam Extremities exam: left foot bandaged - Back Exam Back exam: CVA tenderness (L), CVA tenderness (R) - Neurological Exam Neurological exam: Patient is awake, alert, responds to verbal stimuli, answers questions appropriately, follows commands, and moves extremities past midline - Psychiatric Exam Psychiatric exam: Normal Affect, Normal Mood Assessment and Plan: Worsening CKD - Cr decreased after getting HD yesterday, Dr. 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 Handy for possible aspiration and cultures - NAGMA noted- likely 2/2 diarrhea vs RTA IV; nephro recs- continue sodium bicarbonate tabs Septic Shock - Resolved - Repeat blood, urine, and stool cultures negative at this time - ID recommends continuing abx - L foot wound cx growing MRSA and corynebacterium LLE Osteomyelitis - s/p I&D - Will require 6 weeks of abx as per ID, will await recs - MRI L foot showed osteomyelitis of L calcaneus and diffuse plantar proximal aspect of L foot - wound care per podiatry- wound vac will be removed and the patient can follow with wound care when discharged. will continue follow while inpatient. - L Foot cx growing MRSA and corynbacterium Anemia likely 2/2 chronic dz - s/p 7u total pRBC transfused - Hgb 8.7 today - Dr. Weaver consulted- appreciate recs- note reviewed, patient does not want her care at this time as patient has Dr. Granados outpatient, as per note the patient claims she already completed a bone marrow biopsy and was recommended to take iron - kappa/lambda are elevated Hx DM - glucose levels stalbe in the 100s- monitor closely- advised to continue with recommended diet - continue with levemir 7 BID - ISS med Cardiomyopathy - ECHO shows EF of 35% - Cardiology consulted, Dr. Ryan- appreciate recommendations - c/w Coreg 6.25 BID and lasix PPX - protonix - no scds due to foot infection, no lovenox due to renal function, no heparin due to decreasing H/H Patient case discussed with and plan approved by attending physician, Dr. Parker. Objective - Vital Signs/Intake and Output Vital Signs (last 24 hours): Temp Pulse Resp BP Pulse Ox 98.6 F 98 H 18 148/103 H 99 11/21/16 08:38 11/21/16 08:38 11/21/16 08:38 11/21/16 06:23 11/21/16 08:38 Intake and Output: 11/21/16 11/21/16 06:59 18:59 Intake Total 620 Output Total 600 Balance 20 - Medications Medications: Current Medications Acetaminophen (Tylenol 325mg Tab) 650 mg PO Q4 PRN PRN Reason: Pain, Mild (1-3) Last Admin: 11/20/16 08:44 Dose: 650 mg Artificial Tears (Artificial Tears) 0.2 ml OU DAILY PRN PRN Reason: Dry skin Last Admin: 11/07/16 10:25 Dose: 2 drop Benzocaine/Menthol (Cepacol Sore Throat) 1 trent MT BID PRN PRN Reason: Sore Throat Last Admin: 11/21/16 01:11 Dose: 1 trent Collagenase (Santyl) 0 gm TOP DAILY [facility] Last Admin: 11/21/16 10:24 Dose: Not Given Furosemide (Lasix) 120 mg IVP 0600,1800 [facility] Last Admin: 11/21/16 06:23 Dose: 120 mg Fluconazole 100 mg/ (Miscellaneous) 50 mls @ 100 mls/hr IVPB DAILY [facility] PRN Reason: Protocol Last Admin: 11/21/16 10:16 Dose: 100 mls/hr Daptomycin 420 mg/ Sodium (Chloride) 100 mls @ 200 mls/hr IV QOTHERDAY [facility] Stop: 12/15/16 10:31 Last Admin: 11/21/16 10:18 Dose: 200 mls/hr Insulin Detemir (Levemir) 7 unit SC BID [facility] Last Admin: 11/21/16 10:17 Dose: 7 unit Insulin Human Lispro (Humalog Med) 0 units SC ACHS [facility] PRN Reason: Protocol Last Admin: 11/21/16 08:31 Dose: 3 units Ondansetron HCl (Zofran Inj) 4 mg IVP Q6H PRN PRN Reason: Nausea/Vomiting Pantoprazole Sodium (Protonix Ec Tab) 40 mg PO DAILY [facility] Last Admin: 11/21/16 10:18 Dose: 40 mg Sodium Bicarbonate (Sodium Bicarbonate Tab) 3,900 mg PO QID [facility] Last Admin: 11/18/16 17:39 Dose: 3,900 mg - Labs Labs: 11/21/16 08:10 11/21/16 08:10 PT 13.2 Seconds (9.9-11.8) H 11/11/16 05:40 INR 1.22 (0.93-1.08) H 11/11/16 05:40 APTT 32.0 Seconds (23.7-30.8) H 11/11/16 05:40 <Agustin Parker - Last Filed: 11/21/16 14:00> Objective - Vital Signs/Intake and Output Vital Signs (last 24 hours): Temp Pulse Resp BP Pulse Ox 98.6 F 98 H 18 148/103 H 99 11/21/16 08:38 11/21/16 08:38 11/21/16 08:38 11/21/16 06:23 11/21/16 08:38 Intake and Output: 11/21/16 11/21/16 06:59 18:59 Intake Total 620 Output Total 600 Balance 20 - Medications Medications: Current Medications Acetaminophen (Tylenol 325mg Tab) 650 mg PO Q4 PRN PRN Reason: Pain, Mild (1-3) Last Admin: 11/20/16 08:44 Dose: 650 mg Artificial Tears (Artificial Tears) 0.2 ml OU DAILY PRN PRN Reason: Dry skin Last Admin: 11/07/16 10:25 Dose: 2 drop Benzocaine/Menthol (Cepacol Sore Throat) 1 trent MT BID PRN PRN Reason: Sore Throat Last Admin: 11/21/16 01:11 Dose: 1 trent Collagenase (Santyl) 0 gm TOP DAILY [facility] Last Admin: 11/21/16 10:24 Dose: Not Given Furosemide (Lasix) 120 mg IVP 0600,1800 [facility] Last Admin: 11/21/16 06:23 Dose: 120 mg Fluconazole 100 mg/ (Miscellaneous) 50 mls @ 100 mls/hr IVPB DAILY [facility] PRN Reason: Protocol Last Admin: 11/21/16 10:16 Dose: 100 mls/hr Daptomycin 420 mg/ Sodium (Chloride) 100 mls @ 200 mls/hr IV QOTHERDAY [facility] Stop: 12/15/16 10:31 Last Admin: 11/21/16 10:18 Dose: 200 mls/hr Insulin Detemir (Levemir) 7 unit SC BID [facility] Last Admin: 11/21/16 10:17 Dose: 7 unit Insulin Human Lispro (Humalog Med) 0 units SC ACHS [facility] PRN Reason: Protocol Last Admin: 11/21/16 13:27 Dose: Not Given Ondansetron HCl (Zofran Inj) 4 mg IVP Q6H PRN PRN Reason: Nausea/Vomiting Pantoprazole Sodium (Protonix Ec Tab) 40 mg PO DAILY [facility] Last Admin: 11/21/16 10:18 Dose: 40 mg Sodium Bicarbonate (Sodium Bicarbonate Tab) 3,900 mg PO QID [facility] Last Admin: 11/18/16 17:39 Dose: 3,900 mg - Labs Labs: 11/21/16 08:10 11/21/16 08:10 PT 13.2 Seconds (9.9-11.8) H 11/11/16 05:40 INR 1.22 (0.93-1.08) H 11/11/16 05:40 APTT 32.0 Seconds (23.7-30.8) H 11/11/16 05:40 Attending/Attestation - Attestation I have personally seen and examined this patient.: Yes I have fully participated in the care of the patient.: Yes I have reviewed all pertinent clinical information, including history, physical exam and plan: Yes Notes (Text): I have seen and examined the patient at bedside. Agree with the above note with the following additions/ exceptions: Briefly this is 36 year with history of IDDM, HTN, dyslipidemia, wheel chair bound, 2 amputated toes of left leg and chronic LE ulcer who presented with severe sepsis secondary to acute pyelonephritis, osteomyelitis of L foot, Acute on chronic kidney disease and anemia. Continue daptomycin for MRSA of left foot and diflucan for yeast. She needs to complete 6 wks of IV dapto. Patient underwent renal biopsy which showed pyelo. CT scan w contrast revealed multiple renal abscesses. We will consult IR regarding possible aspiration and cultures. New tunneled catheter is in place. Will discuss with SW regarding outpatient HD set up. Long-term prognosis is poor secondary to multiple medical problems and noncompliance with follow-up. Upon discharge patient will follow up with . Dr Agustin Parker
--- NOTE | 2016-11-21 20:22 | PN ---
SUBJECTIVE: The patient is in bed, in no acute distress, nontoxic. PHYSICAL EXAMINATION: VITAL SIGNS: Temperature is 98, blood pressure 140/100, respiratory rate of 18, heart rate of 109. HEENT: Unremarkable. NECK: Supple. LUNGS: Decreased breath sounds. HEART: Normal S1 and S2. ABDOMEN: Soft. LABORATORY DATA: Reveals a white count of 14,500, hemoglobin of 8, and platelets of 439. Chemistries reveals a BUN of 40, creatinine of 4.2. ASSESSMENT AND PLAN: This is a 36-year-old female with severe sepsis; acute renal failure due to acute pyelonephritis; methicillin-resistant Staphylococcus aureus in the urine; left foot abscess; osteomyelitis with methicillin-resistant Staphylococcus aureus, status post incision and drainage, on day #18 of daptomycin in a patient with diabetic neuropathy; hypertension; renally adjusted daptomycin, will need 4 to 6 weeks of antibiotics, today is #18. Echo is negative for vegetations. The patient did have a CAT scan of the abdomen which shows multiple fluid collections. Case discussed with Dr. Preston. We will call Dr. Josemanuel Handy on consultation. Review of the CAT scan. Possible drainage of the multiple abscesses. Dr. Agustin Parker's . We will follow with you. Review of medications reveals the patient is on daptomycin which requires renewal which I will do so. Dusty Crabtree MD
[2016-11-22 06:57] LABS: BASO # 0.06 K/mm3 (0.0-2.0); BASO % 0.4 % (0.0-3.0); EOS # 0.5 (0.0-0.7); GRAN # 12.1 (1.4-6.5); GRAN % 81.6 % (50.0-68.0); HEMATOCRIT 28.2 % (36.0-48.0); LYMPH # 1.4 (1.2-3.4); LYMPH % 9.4 % (22.0-35.0); MEAN CORPUSCULAR HEMOGLOBIN 28.4 pg (25.0-35.0); MEAN CORPUSCULAR HGB CONC 31.2 g/dl (31.0-37.0); MEAN PLATELET VOLUME 9.2 fl (7.0-11.0); MONO # 0.8 (0.1-0.6); MONO % 5.6 % (1.0-6.0); WHITE BLOOD COUNT 14.8 10^3/ul (4.5-11.0)
[2016-11-22 07:33] LABS: ALB/GLOB RATIO 0.6 (1.1-1.8); BILIRUBIN,TOTAL 0.4 mg/dL (0.2-1.3); CALCIUM 8.2 mg/dL (8.4-10.5); TOTAL PROTEIN 8.2 g/dL (5.8-8.3)
[2016-11-22] MEDS: Insulin Lispro (humaLOG) MEDIUM Coverage SC SCH ×4 (07:59→22:00)
[2016-11-22] MEDS ORDERED: Midazolam 2 MG/2 ML VIAL ONE (09:34)
--- NOTE | 2016-11-22 09:44 | CP.PCM.PN ---
Subjective - Date & Time of Evaluation Date of Evaluation: 11/21/16 Time of Evaluation: 12:00 - Subjective Subjective: Patient denies sob, nausea/vomiting; Objective - Vital Signs/Intake and Output Vital Signs (last 24 hours): Temp Pulse Resp BP Pulse Ox 99.1 F 102 H 20 150/90 100 11/22/16 08:30 11/22/16 08:30 11/22/16 08:30 11/22/16 08:30 11/22/16 08:30 Intake and Output: 11/22/16 11/22/16 06:59 18:59 Intake Total 300 360 Output Total 300 700 Balance 0 -340 - Medications Medications: Current Medications Acetaminophen (Tylenol 325mg Tab) 650 mg PO Q4 PRN PRN Reason: Pain, Mild (1-3) Last Admin: 11/20/16 08:44 Dose: 650 mg Artificial Tears (Artificial Tears) 0.2 ml OU DAILY PRN PRN Reason: Dry skin Last Admin: 11/07/16 10:25 Dose: 2 drop Benzocaine/Menthol (Cepacol Sore Throat) 1 trent MT BID PRN PRN Reason: Sore Throat Last Admin: 11/21/16 17:25 Dose: 1 trent Collagenase (Santyl) 0 gm TOP DAILY [facility] Last Admin: 11/21/16 10:24 Dose: Not Given Furosemide (Lasix) 120 mg IVP 0600,1800 [facility] Last Admin: 11/22/16 06:01 Dose: Not Given Fluconazole 100 mg/ (Miscellaneous) 50 mls @ 100 mls/hr IVPB DAILY [facility] PRN Reason: Protocol Last Admin: 11/21/16 10:16 Dose: 100 mls/hr Daptomycin 420 mg/ Sodium (Chloride) 100 mls @ 200 mls/hr IV QOTHERDAY [facility] Stop: 12/15/16 10:31 Last Admin: 11/21/16 10:18 Dose: 200 mls/hr Insulin Detemir (Levemir) 7 unit SC BID [facility] Last Admin: 11/21/16 17:28 Dose: 7 unit Insulin Human Lispro (Humalog Med) 0 units SC ACHS [facility] PRN Reason: Protocol Last Admin: 11/22/16 07:59 Dose: 5 units Ondansetron HCl (Zofran Inj) 4 mg IVP Q6H PRN PRN Reason: Nausea/Vomiting Pantoprazole Sodium (Protonix Ec Tab) 40 mg PO DAILY [facility] Last Admin: 11/21/16 10:18 Dose: 40 mg Sodium Bicarbonate (Sodium Bicarbonate Tab) 3,900 mg PO QID [facility] Last Admin: 11/18/16 17:39 Dose: 3,900 mg - Labs Labs: 11/22/16 06:41 11/22/16 06:41 PT 13.2 Seconds (9.9-11.8) H 11/11/16 05:40 INR 1.22 (0.93-1.08) H 11/11/16 05:40 APTT 32.0 Seconds (23.7-30.8) H 11/11/16 05:40 - Constitutional Appears: Non-toxic, No Acute Distress - Head Exam Head Exam: NORMAL INSPECTION - Eye Exam Eye Exam: Normal appearance - ENT Exam ENT Exam: Mucous Membranes Moist - Respiratory Exam Respiratory Exam: absent: Rhonchi, Wheezes, Respiratory Distress - Cardiovascular Exam Cardiovascular Exam: RRR. absent: Gallop, Rubs - GI/Abdominal Exam GI & Abdominal Exam: Soft. absent: Distended, Tenderness - Extremities Exam Additional comments: no leg edema; - Neurological Exam Neurological Exam: Alert, Awake - Psychiatric Exam Psychiatric exam: Normal Affect, Normal Mood - Skin Skin Exam: Warm. absent: Cyanosis Assessment and Plan (1) Acute renal failure Assessment & Plan: EMMETT on CKD secondary to pyelo; non-oliguric but HD dependent; discussed with IR regarding multiple areas of fluid collection of b/l kidneys concerning for abcesses in the setting of pyelo that has been treated for >3 weeks but still gross pyuria; will attempt aspiration of the larger fluid collections for culture (if patient is agreeable, she will decide on Friday); -continue HD qMWF Status: Acute (2) CKD (chronic kidney disease) Assessment & Plan: Due to DM nephropathy; however, concern that the longer pyelo and inflammation remains, the more fibrosis will result; Status: Chronic (3) Anemia Assessment & Plan: Hgb stable, continue weekly aranesp; Status: Acute (4) Metabolic acidosis Assessment & Plan: Due to severe renal insufficiency; correcting with HD; Status: Acute (5) Sepsis Assessment & Plan: Continue abx; will send renal abcess aspiration for C/S; Status: Acute (6) CHF (congestive heart failure) Status: Acute
--- NOTE | 2016-11-22 10:14 | CP.PCM.PN ---
<Pedrito Lobo - Last Filed: 11/22/16 10:16> Subjective - Date & Time of Evaluation Date of Evaluation: 11/22/16 Time of Evaluation: 09:50 - Subjective Subjective: Podiatry Progress Note - Dr. Craven 36 year old female patient seen at bedside POD#23 left foot I&D (DOS: 10/31/16) with mother seen at bedside. Patient is seen resting comfortably in bed awake this morning, AAOx3 and in NAD. Patient continues to report working with physical therapy to regain strength with the goal of ambulating. Patient is seen wearing multipodus boots at the time of visitation. Dressing c/d/i. Patient denies N/V/C/F/SOB/calf pain. No pedal complaints at this time. Objective - Vital Signs/Intake and Output Vital Signs (last 24 hours): Temp Pulse Resp BP Pulse Ox 99.1 F 102 H 20 150/90 100 11/22/16 08:30 11/22/16 08:30 11/22/16 08:30 11/22/16 08:30 11/22/16 08:30 Intake and Output: 11/22/16 11/22/16 06:59 18:59 Intake Total 300 360 Output Total 300 700 Balance 0 -340 - Medications Medications: Current Medications Acetaminophen (Tylenol 325mg Tab) 650 mg PO Q4 PRN PRN Reason: Pain, Mild (1-3) Last Admin: 11/20/16 08:44 Dose: 650 mg Artificial Tears (Artificial Tears) 0.2 ml OU DAILY PRN PRN Reason: Dry skin Last Admin: 11/07/16 10:25 Dose: 2 drop Benzocaine/Menthol (Cepacol Sore Throat) 1 trent MT BID PRN PRN Reason: Sore Throat Last Admin: 11/21/16 17:25 Dose: 1 trent Collagenase (Santyl) 0 gm TOP DAILY [facility] Last Admin: 11/21/16 10:24 Dose: Not Given Furosemide (Lasix) 120 mg IVP 0600,1800 [facility] Last Admin: 11/22/16 06:01 Dose: Not Given Fluconazole 100 mg/ (Miscellaneous) 50 mls @ 100 mls/hr IVPB DAILY [facility] PRN Reason: Protocol Last Admin: 11/21/16 10:16 Dose: 100 mls/hr Daptomycin 420 mg/ Sodium (Chloride) 100 mls @ 200 mls/hr IV QOTHERDAY [facility] Stop: 12/15/16 10:31 Last Admin: 11/21/16 10:18 Dose: 200 mls/hr Insulin Detemir (Levemir) 7 unit SC BID [facility] Last Admin: 11/21/16 17:28 Dose: 7 unit Insulin Human Lispro (Humalog Med) 0 units SC ACHS [facility] PRN Reason: Protocol Last Admin: 11/22/16 07:59 Dose: 5 units Ondansetron HCl (Zofran Inj) 4 mg IVP Q6H PRN PRN Reason: Nausea/Vomiting Pantoprazole Sodium (Protonix Ec Tab) 40 mg PO DAILY [facility] Last Admin: 11/21/16 10:18 Dose: 40 mg Sodium Bicarbonate (Sodium Bicarbonate Tab) 3,900 mg PO QID [facility] Last Admin: 11/18/16 17:39 Dose: 3,900 mg - Labs Labs: 11/22/16 06:41 11/22/16 06:41 PT 13.2 Seconds (9.9-11.8) H 11/11/16 05:40 INR 1.22 (0.93-1.08) H 11/11/16 05:40 APTT 32.0 Seconds (23.7-30.8) H 11/11/16 05:40 - Constitutional Appears: Well, Non-toxic, No Acute Distress - Extremities Exam Additional comments: Left lower extremity focused examination. Dressings are clean, dry, and intact with no strikethrough noted. VASC: DP and PT pulses palpable 2/4 b/l. TG WNL b/l. No edema noted to left foot. NEURO: Gross sensation absent bilaterally. DERM: LLE = One uniform full thickness ulceration noted to left medial heel measuring approximately 3.6 x 2.8 x 1.1 cm with wound base appearing as a granular ring and fibrotic core no active drainage noted. No acute signs of infection. RLE = Nonblanchable patch of erythema noted to plantarposterior calcaneus. ORTHO: No pain on palpation noted. - Neurological Exam Neurological Exam: Alert, Awake, Oriented x3 - Psychiatric Exam Psychiatric exam: Normal Affect, Normal Mood Assessment and Plan - Assessment and Plan (Free Text) Assessment: 36 year old female PMHx IDDM, renal failure, sepsis, metabolic acidosis, UTI, CKD, anemia 1) s/p left foot incision and drainage with wound debridement; 2) Stage 1 pressure ulcer right heel Plan: Patient seen and evaluated at bedside Chart, vitals, labs reviewed - afebrile, WBC=14.8 Discussed the plan in detail with attending Dr. Craven Left foot wound culture = MRSA Urine culture - yeast Per ID, continue renally-adjusted Daptomycin; patient will need 6 weeks of abx Wounds cleansed with saline, dressed with Santyl, 4x4, Maxosorb, ABD, and kerlix. Patient to wear multipodus boots at all times while in bed to prevent progression of pressure ulcer formation R heel. Patient may WBAT in Darco Heel Wedge to the left and surgical shoe to the right. Darco Heel Wedge must be worn to the left at all times when ambulating Continue Eucerin cream bilateral LE BID Prognosis for limb salvage poor At this point, no further debridements are considered for left foot; will be seen in followup Podiatry will continue to follow patient while in house <Logan Craven - Last Filed: 11/23/16 08:27> Objective - Vital Signs/Intake and Output Vital Signs (last 24 hours): Temp Pulse Resp BP Pulse Ox 98.9 F 96 H 20 140/58 L 100 11/22/16 16:06 11/22/16 17:26 11/22/16 17:26 11/22/16 17:26 11/22/16 17:26 Intake and Output: 11/23/16 11/23/16 06:59 18:59 Intake Total 360 Output Total 600 Balance -240 - Medications Medications: Current Medications Acetaminophen (Tylenol 325mg Tab) 650 mg PO Q4 PRN PRN Reason: Pain, Mild (1-3) Last Admin: 11/22/16 17:18 Dose: 650 mg Artificial Tears (Artificial Tears) 0.2 ml OU DAILY PRN PRN Reason: Dry skin Last Admin: 11/07/16 10:25 Dose: 2 drop Benzocaine/Menthol (Cepacol Sore Throat) 1 trent MT BID PRN PRN Reason: Sore Throat Last Admin: 11/22/16 21:53 Dose: 1 trent Collagenase (Santyl) 0 gm TOP DAILY [facility] Last Admin: 11/22/16 15:40 Dose: Not Given Furosemide (Lasix) 80 mg IVP Q12 [facility] Fluconazole 100 mg/ (Miscellaneous) 50 mls @ 100 mls/hr IVPB DAILY [facility] PRN Reason: Protocol Last Admin: 11/22/16 17:15 Dose: Not Given Daptomycin 420 mg/ Sodium (Chloride) 100 mls @ 200 mls/hr IV QOTHERDAY [facility] Stop: 12/15/16 10:31 Last Admin: 11/21/16 10:18 Dose: 200 mls/hr Insulin Detemir (Levemir) 7 unit SC BID [facility] Last Admin: 11/22/16 17:16 Dose: 7 unit Insulin Human Lispro (Humalog Med) 0 units SC ACHS [facility] PRN Reason: Protocol Last Admin: 11/23/16 08:19 Dose: 8 units Ondansetron HCl (Zofran Inj) 4 mg IVP Q6H PRN PRN Reason: Nausea/Vomiting Pantoprazole Sodium (Protonix Ec Tab) 40 mg PO DAILY [facility] Last Admin: 11/21/16 10:18 Dose: 40 mg Sodium Bicarbonate (Sodium Bicarbonate Tab) 3,900 mg PO QID [facility] Last Admin: 11/18/16 17:39 Dose: 3,900 mg - Labs Labs: 11/23/16 06:30 11/23/16 06:30 PT 13.2 Seconds (9.9-11.8) H 11/11/16 05:40 INR 1.22 (0.93-1.08) H 11/11/16 05:40 APTT 32.0 Seconds (23.7-30.8) H 11/11/16 05:40 Attending/Attestation - Attestation I have personally seen and examined this patient.: Yes I have fully participated in the care of the patient.: Yes I have reviewed all pertinent clinical information, including history, physical exam and plan: Yes
--- NOTE | 2016-11-22 11:31 | CT ---
PROCEDURE: CT guided right renal abscess biopsy/aspiration HISTORY: Acute on chronic renal failure. Pyelonephritis. Evaluate for small renal abscess. PHYSICIAN(S): Josemanuel Handy MD. TECHNIQUE: The relative risks and indications of the procedure were explained to the patient and consent obtained. The patient was placed prone on the CT scanner and preliminary images through the kidneys obtained. Two small low-attenuation areas are seen in the upper pole the right kidney medially.. A right posterior approach was selected and the area prepped and draped in the usual sterile fashion. 1% Xylocaine was used to anesthetize the skin and soft tissues. A 18 gauge guiding needle was advanced into the 2 cm low-attenuation area in the right upper kidney. 5 cc of purulent fluid was aspirated. The specimen was sent to microbiology. IMPRESSION: 1. CT-guided right renal aspiration and biopsy as described above. 5 cc of purulent fluid was obtained.
--- NOTE | 2016-11-22 12:02 | PN ---
DATE: 11/22/2016 SUBJECTIVE: The patient is in bed in no acute distress, and nontoxic. PHYSICAL EXAMINATION: VITAL SIGNS: Temperature is 99, blood pressure is 150/90, respiratory rate is 20, and heart rate of 102. HEENT: Examination of HEENT is unremarkable. NECK: Supple. LUNGS: Have decreased breath sounds. CARDIOVASCULAR: Heart exam is normal S1 and S2. GASTROINTESTINAL: Abdominal examination is soft and nontender. LABORATORY DATA: Examination reveals a white count of 14,800, hemoglobin of 8, and platelets of 463. Chemistries reveals a BUN of 57, creatinine of 5.1 and alkaline phosphatase is 532. Urinalysis is noted. REVIEW OF ORDERS: The patient is on daptomycin and fluconazole. ASSESSMENT AND PLAN: She is a 36-year-old female with severe sepsis, acute renal failure due to acute pyelonephritis with methicillin-resistant Staphylococcus aureus in the urine with a left foot abscess osteomyelitis with methicillin-resistant Staphylococcus aureus, status post incision and drainage day number 19 of daptomycin in a patient with diabetic neuropathy, hypertension, renally adjusted daptomycin, will need 4 weeks to 6 weeks of daptomycin antibiotics, today is day number 19 of [address] scan shows multiple fluid collection, case was discussed with Dr. Preston, who will discuss with Dr. Josemanuel Handy regarding possible IR drainage and today is day number 7 of the Diflucan. We will follow closely with you. Dusty Crabtree MD
--- NOTE | 2016-11-22 13:51 | CP.PCM.PN ---
<Ata Ackerman - Last Filed: 11/22/16 13:51> Subjective - Date & Time of Evaluation Date of Evaluation: 11/22/16 Time of Evaluation: 07:45 - Subjective Subjective: Subjective: Patient seen and examined at bedside. Resting comfortably in bed. States she will be compliant for IR guided drainage today. Patient tachy in 100s overnight and diastolic BP elevated in 100s. Offers no new complaints. Denies f/c/cp/sob/ abdominal pain/n/v/d/c/urinary sxs. Physical Examination: - Constitutional Appears: NAD - Head Exam Head Exam: ATRAUMATIC, NORMAL INSPECTION, NORMOCEPHALIC - Eye Exam Eye Exam: EOMI, Normal appearance, PERRL Pupil Exam: NORMAL ACCOMODATION, PERRL - ENT Exam ENT Exam: Mucous Membranes Moist, Normal Exam - Respiratory Exam Respiratory Exam: Clear to Auscultation Bilateral, NORMAL BREATHING PATTERN - Cardiovascular Exam Cardiovascular Exam: REGULAR RHYTHM, +S1, +S2 - GI/Abdominal Exam GI & Abdominal Exam: Normal Bowel Sounds, Soft. absent: Tenderness - Extremities Exam Extremities exam: left foot bandaged - Back Exam Back exam: CVA tenderness (L), CVA tenderness (R) - Neurological Exam Neurological exam: Patient is awake, alert, responds to verbal stimuli, answers questions appropriately, follows commands, and moves extremities past midline - Psychiatric Exam Psychiatric exam: Normal Affect, Normal Mood Assessment and Plan: Worsening CKD - Cr increased after getting HD today, Dr. Preston recs- renal biopsy completed showing MRSA and yeast, HD on MWF - c/w Diflucan and daptomycin as per ID - long-term dialysis will be required, patient received tunneled catheter placement for [facility] dialysis - IV contrast CT reviewed- evidence of multiple renal abscesses- Dr. Handy IR guided aspiration and cultures - NAGMA noted- nephro recs- continue sodium bicarbonate tabs Septic Shock - Resolved - Repeat blood, urine, and stool cultures negative at this time - ID recommends continuing abx - L foot wound cx growing MRSA and corynebacterium LLE Osteomyelitis - s/p I&D - Will require 6 weeks of abx as per ID, will await recs - MRI L foot showed osteomyelitis of L calcaneus and diffuse plantar proximal aspect of L foot - wound care per podiatry- wound vac will be removed and the patient can follow with wound care when discharged. will continue follow while inpatient. - L Foot cx growing MRSA and corynbacterium Anemia likely 2/2 chronic dz - s/p 7u total pRBC transfused - Hgb 8.8 today - Dr. Weaver consulted- appreciate recs- note reviewed, patient does not want her care at this time as patient has Dr. Granados outpatient, as per note the patient claims she already completed a bone marrow biopsy and was recommended to take iron - kappa/lambda are elevated Hx DM - glucose levels stalbe in the 200s- monitor closely- advised to continue with recommended diet - continue with levemir 7 BID - ISS med Cardiomyopathy - ECHO shows EF of 35% - Cardiology consulted, Dr. Ryan- appreciate recommendations - c/w Coreg 6.25 BID and lasix PPX - protonix - no scds due to foot infection, no lovenox due to renal function, no heparin due to decreasing H/H Patient case discussed with and plan approved by attending physician, Dr. Parker. Objective - Vital Signs/Intake and Output Vital Signs (last 24 hours): Temp Pulse Resp BP Pulse Ox 99.1 F 102 H 20 150/90 100 11/22/16 08:30 11/22/16 08:30 11/22/16 08:30 11/22/16 08:30 11/22/16 08:30 Intake and Output: 11/22/16 11/22/16 06:59 18:59 Intake Total 300 360 Output Total 300 700 Balance 0 -340 - Medications Medications: Current Medications Acetaminophen (Tylenol 325mg Tab) 650 mg PO Q4 PRN PRN Reason: Pain, Mild (1-3) Last Admin: 11/20/16 08:44 Dose: 650 mg Artificial Tears (Artificial Tears) 0.2 ml OU DAILY PRN PRN Reason: Dry skin Last Admin: 11/07/16 10:25 Dose: 2 drop Benzocaine/Menthol (Cepacol Sore Throat) 1 trent MT BID PRN PRN Reason: Sore Throat Last Admin: 11/21/16 17:25 Dose: 1 trent Collagenase (Santyl) 0 gm TOP DAILY [facility] Last Admin: 11/21/16 10:24 Dose: Not Given Furosemide (Lasix) 120 mg IVP 0600,1800 [facility] Last Admin: 11/22/16 06:01 Dose: Not Given Fluconazole 100 mg/ (Miscellaneous) 50 mls @ 100 mls/hr IVPB DAILY [facility] PRN Reason: Protocol Last Admin: 11/21/16 10:16 Dose: 100 mls/hr Daptomycin 420 mg/ Sodium (Chloride) 100 mls @ 200 mls/hr IV QOTHERDAY [facility] Stop: 12/15/16 10:31 Last Admin: 11/21/16 10:18 Dose: 200 mls/hr Insulin Detemir (Levemir) 7 unit SC BID [facility] Last Admin: 11/21/16 17:28 Dose: 7 unit Insulin Human Lispro (Humalog Med) 0 units SC ACHS [facility] PRN Reason: Protocol Last Admin: 11/22/16 07:59 Dose: 5 units Ondansetron HCl (Zofran Inj) 4 mg IVP Q6H PRN PRN Reason: Nausea/Vomiting Pantoprazole Sodium (Protonix Ec Tab) 40 mg PO DAILY [facility] Last Admin: 11/21/16 10:18 Dose: 40 mg Sodium Bicarbonate (Sodium Bicarbonate Tab) 3,900 mg PO QID [facility] Last Admin: 11/18/16 17:39 Dose: 3,900 mg - Labs Labs: 11/22/16 06:41 11/22/16 06:41 PT 13.2 Seconds (9.9-11.8) H 11/11/16 05:40 INR 1.22 (0.93-1.08) H 11/11/16 05:40 APTT 32.0 Seconds (23.7-30.8) H 11/11/16 05:40 <Agustin Parker - Last Filed: 11/22/16 17:15> Objective - Vital Signs/Intake and Output Vital Signs (last 24 hours): Temp Pulse Resp BP Pulse Ox 98.9 F 110 H 20 145/100 H 100 11/22/16 16:06 11/22/16 16:06 11/22/16 16:06 11/22/16 16:06 11/22/16 16:06 Intake and Output: 11/22/16 11/22/16 06:59 18:59 Intake Total 300 360 Output Total 300 700 Balance 0 -340 - Medications Medications: Current Medications Acetaminophen (Tylenol 325mg Tab) 650 mg PO Q4 PRN PRN Reason: Pain, Mild (1-3) Last Admin: 11/20/16 08:44 Dose: 650 mg Artificial Tears (Artificial Tears) 0.2 ml OU DAILY PRN PRN Reason: Dry skin Last Admin: 11/07/16 10:25 Dose: 2 drop Benzocaine/Menthol (Cepacol Sore Throat) 1 trent MT BID PRN PRN Reason: Sore Throat Last Admin: 11/21/16 17:25 Dose: 1 trent Collagenase (Santyl) 0 gm TOP DAILY [facility] Last Admin: 11/22/16 15:40 Dose: Not Given Furosemide (Lasix) 80 mg IVP Q12 [facility] Fluconazole 100 mg/ (Miscellaneous) 50 mls @ 100 mls/hr IVPB DAILY [facility] PRN Reason: Protocol Last Admin: 11/21/16 10:16 Dose: 100 mls/hr Daptomycin 420 mg/ Sodium (Chloride) 100 mls @ 200 mls/hr IV QOTHERDAY [facility] Stop: 12/15/16 10:31 Last Admin: 11/21/16 10:18 Dose: 200 mls/hr Insulin Detemir (Levemir) 7 unit SC BID [facility] Last Admin: 11/22/16 15:40 Dose: Not Given Insulin Human Lispro (Humalog Med) 0 units SC ACHS [facility] PRN Reason: Protocol Last Admin: 11/22/16 15:40 Dose: Not Given Ondansetron HCl (Zofran Inj) 4 mg IVP Q6H PRN PRN Reason: Nausea/Vomiting Pantoprazole Sodium (Protonix Ec Tab) 40 mg PO DAILY [facility] Last Admin: 11/21/16 10:18 Dose: 40 mg Sodium Bicarbonate (Sodium Bicarbonate Tab) 3,900 mg PO QID [facility] Last Admin: 11/18/16 17:39 Dose: 3,900 mg - Labs Labs: 11/22/16 06:41 11/22/16 06:41 PT 13.2 Seconds (9.9-11.8) H 11/11/16 05:40 INR 1.22 (0.93-1.08) H 11/11/16 05:40 APTT 32.0 Seconds (23.7-30.8) H 11/11/16 05:40 Attending/Attestation - Attestation I have personally seen and examined this patient.: Yes I have fully participated in the care of the patient.: Yes I have reviewed all pertinent clinical information, including history, physical exam and plan: Yes Notes (Text): I have seen and examined the patient at bedside. Agree with the above note with the following additions/ exceptions: Briefly this is 36 year old female with history of IDDM, HTN, dyslipidemia, wheel chair bound, 2 amputated toes of left leg and chronic LE ulcer who presented with severe sepsis secondary to acute pyelonephritis, osteomyelitis of L foot, Acute on chronic kidney disease and anemia. Continue daptomycin for MRSA of left foot and diflucan for yeast. She needs to complete 6 wks of IV dapto. Patient underwent renal biopsy which showed pyelo. CT scan w contrast revealed multiple renal abscesses. Today patient had IR guided needle aspiration and cultures were sent. New tunneled catheter is in place. Will discuss with SW regarding outpatient HD set up. Long- term prognosis is poor secondary to multiple medical problems and noncompliance with follow-up. Upon discharge patient will follow up with . Dr Agustin Parker
[2016-11-22] MEDS: Insulin Detemir 100 units/ml Vial (Levemir) SC SCH ×2 (15:40→17:16)
[2016-11-22] MEDS: Collagenase 250 Units/gm Ointment(30 gm) TOP SCH (15:40)
--- NOTE | 2016-11-22 16:16 | CP.PCM.PN ---
Subjective - Date & Time of Evaluation Date of Evaluation: 11/22/16 Time of Evaluation: 12:45 - Subjective Subjective: 36-year-old female past medical history of diabetes with previously diagnosed necrotic left foot, bedbound for unclear period of time, admitted with acute renal failure and left foot osteomyelitis; Patient reports feeling well, denies shortness of breath, tolerating diet; reports feeling her blood sugar low; wants to be dialyzed in a room by herself (instead of in the dialysis unit); Objective - Vital Signs/Intake and Output Vital Signs (last 24 hours): Temp Pulse Resp BP Pulse Ox 98.9 F 110 H 20 145/100 H 100 11/22/16 16:06 11/22/16 16:06 11/22/16 16:06 11/22/16 16:06 11/22/16 16:06 Intake and Output: 11/22/16 11/22/16 06:59 18:59 Intake Total 300 360 Output Total 300 700 Balance 0 -340 - Medications Medications: Current Medications Acetaminophen (Tylenol 325mg Tab) 650 mg PO Q4 PRN PRN Reason: Pain, Mild (1-3) Last Admin: 11/20/16 08:44 Dose: 650 mg Artificial Tears (Artificial Tears) 0.2 ml OU DAILY PRN PRN Reason: Dry skin Last Admin: 11/07/16 10:25 Dose: 2 drop Benzocaine/Menthol (Cepacol Sore Throat) 1 trent MT BID PRN PRN Reason: Sore Throat Last Admin: 11/21/16 17:25 Dose: 1 trent Collagenase (Santyl) 0 gm TOP DAILY [facility] Last Admin: 11/22/16 15:40 Dose: Not Given Furosemide (Lasix) 80 mg IVP Q12 [facility] Fluconazole 100 mg/ (Miscellaneous) 50 mls @ 100 mls/hr IVPB DAILY [facility] PRN Reason: Protocol Last Admin: 11/21/16 10:16 Dose: 100 mls/hr Daptomycin 420 mg/ Sodium (Chloride) 100 mls @ 200 mls/hr IV QOTHERDAY [facility] Stop: 12/15/16 10:31 Last Admin: 11/21/16 10:18 Dose: 200 mls/hr Insulin Detemir (Levemir) 7 unit SC BID [facility] Last Admin: 11/22/16 15:40 Dose: Not Given Insulin Human Lispro (Humalog Med) 0 units SC ACHS [facility] PRN Reason: Protocol Last Admin: 11/22/16 15:40 Dose: Not Given Ondansetron HCl (Zofran Inj) 4 mg IVP Q6H PRN PRN Reason: Nausea/Vomiting Pantoprazole Sodium (Protonix Ec Tab) 40 mg PO DAILY [facility] Last Admin: 11/21/16 10:18 Dose: 40 mg Sodium Bicarbonate (Sodium Bicarbonate Tab) 3,900 mg PO QID [facility] Last Admin: 11/18/16 17:39 Dose: 3,900 mg - Labs Labs: 11/22/16 06:41 11/22/16 06:41 PT 13.2 Seconds (9.9-11.8) H 11/11/16 05:40 INR 1.22 (0.93-1.08) H 11/11/16 05:40 APTT 32.0 Seconds (23.7-30.8) H 11/11/16 05:40 - Constitutional Appears: Non-toxic, No Acute Distress - Head Exam Head Exam: NORMAL INSPECTION - Eye Exam Eye Exam: Normal appearance. absent: Scleral icterus - ENT Exam ENT Exam: Mucous Membranes Moist - Respiratory Exam Respiratory Exam: Clear to Ausculation Bilateral. absent: Rales, Rhonchi, Wheezes, Respiratory Distress - Cardiovascular Exam Cardiovascular Exam: REGULAR RHYTHM, +S1, +S2 - GI/Abdominal Exam GI & Abdominal Exam: Soft. absent: Distended, Tenderness - Extremities Exam Additional comments: no leg edema - Neurological Exam Neurological Exam: Alert, Awake - Psychiatric Exam Psychiatric exam: Normal Affect, Normal Mood - Skin Skin Exam: Warm. absent: Cyanosis Assessment and Plan (1) Acute renal failure Assessment & Plan: EMMETT on CKD; nonoliguric renal failure but dialysis dependent; EMMETT secondary to acute pyelonephritis per renal biopsy; CT with contrast yesterday showed bilateral multiple small abscesses of kidneys which explains why pyelonephritis has been very difficult to treat and why patient continues to have persistent pyuria; patient's is status post right kidney aspiration of one of the larger abscesses today that yielded 5 mL of pus; will await cultures/sensitivities; -continue HD qMWF -lasix 80 mg IV q12h on non-HD days Status: Acute (2) CKD (chronic kidney disease) Assessment & Plan: 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; will likely have significant fibrosis after pyelonephritis is treated, therefore , even if patient is able to come off HD at some point, overall renal prognosis is poor; -needs to continue adequate blood sugar control and comply with diet (getting fast food delivered from outside); Status: Chronic (3) Anemia Assessment & Plan: hemoglobin stable continue aranesp weekly; will repeat iron studies; Status: Acute (4) Metabolic acidosis Assessment & Plan: Due to renal failure, being corrected with HD; Status: Acute (5) Sepsis Assessment & Plan: L foot osteo and bilateral pyelo; on dapto and floconazole; f/u renal abcess culture; Status: Acute (6) CHF (congestive heart failure) Assessment & Plan: With severe systolic dysfunction; currently appears euvolemic; HD and lasix as above; Status: Acute
[2016-11-22] MEDS: Fluconazole IV 200mg/100 ml NS 100 MG in Premixed IV 1 EA IVPB SCH (17:15)
[2016-11-22] MEDS: Benzocaine/Menthol (Cepacol) Lozenge MT PRN (21:53)
[2016-11-23 07:21] LABS: BASO # 0.04 K/mm3 (0.0-2.0); BASO % 0.3 % (0.0-3.0); EOS # 0.4 (0.0-0.7); EOS % 2.8 % (1.5-5.0); GRAN # 12.91 (1.4-6.5); GRAN % 82.8 % (50.0-68.0); HEMATOCRIT 29.3 % (36.0-48.0); LYMPH # 1.4 (1.2-3.4); LYMPH % 8.7 % (22.0-35.0); MEAN CELL VOLUME 91.3 fl (80.0-105.0); MEAN CORPUSCULAR HEMOGLOBIN 28.7 pg (25.0-35.0); MEAN CORPUSCULAR HGB CONC 31.4 g/dl (31.0-37.0); MEAN PLATELET VOLUME 9.6 fl (7.0-11.0); MONO # 0.8 (0.1-0.6); MONO % 5.4 % (1.0-6.0); RED CELL DISTRIBUTION WIDTH 16.8 % (11.5-14.5); WHITE BLOOD COUNT 15.6 10^3/ul (4.5-11.0)
[2016-11-23 07:38] LABS: ALB/GLOB RATIO 0.6 (1.1-1.8); BILIRUBIN,TOTAL 0.4 mg/dL (0.2-1.3); PHOSPHOROUS 4.2 mg/dL (2.5-4.5); POTASSIUM 3.6 mmol/L (3.6-5.0); TOTAL PROTEIN 8.2 g/dL (5.8-8.3)
[2016-11-23 07:49] LABS: IRON 33 ug/dL (45-180)
[2016-11-23] MEDS: Insulin Lispro (humaLOG) MEDIUM Coverage SC SCH ×4 (08:19→21:39)
--- NOTE | 2016-11-23 08:31 | CP.PCM.PN ---
<AckermanAlexysenzochoco - Last Filed: 11/23/16 08:28> Subjective - Date & Time of Evaluation Date of Evaluation: 11/23/16 Time of Evaluation: 08:28 - Subjective Subjective: Podiatry Progress Note - Dr. Craven 36 year old female patient seen at bedside POD#24 left foot I&D (DOS: 10/31/16) with Dr. Craven seen at bedside. Patient is seen resting comfortably in bed awake this morning, AAOx3 and in NAD. Patient does not report of any acute overnight events. Patient is seen wearing multipodus boots at the time of visitation. Dressing c/d/i. Patient denies N/V/C/F/SOB/calf pain. No pedal complaints at this time. Objective - Vital Signs/Intake and Output Vital Signs (last 24 hours): Temp Pulse Resp BP Pulse Ox 98.9 F 96 H 20 140/58 L 100 11/22/16 16:06 11/22/16 17:26 11/22/16 17:26 11/22/16 17:26 11/22/16 17:26 Intake and Output: 11/23/16 11/23/16 06:59 18:59 Intake Total 360 Output Total 600 Balance -240 - Medications Medications: Current Medications Acetaminophen (Tylenol 325mg Tab) 650 mg PO Q4 PRN PRN Reason: Pain, Mild (1-3) Last Admin: 11/22/16 17:18 Dose: 650 mg Artificial Tears (Artificial Tears) 0.2 ml OU DAILY PRN PRN Reason: Dry skin Last Admin: 11/07/16 10:25 Dose: 2 drop Benzocaine/Menthol (Cepacol Sore Throat) 1 trent MT BID PRN PRN Reason: Sore Throat Last Admin: 11/22/16 21:53 Dose: 1 trent Collagenase (Santyl) 0 gm TOP DAILY [facility] Last Admin: 11/22/16 15:40 Dose: Not Given Furosemide (Lasix) 80 mg IVP Q12 [facility] Fluconazole 100 mg/ (Miscellaneous) 50 mls @ 100 mls/hr IVPB DAILY [facility] PRN Reason: Protocol Last Admin: 11/22/16 17:15 Dose: Not Given Daptomycin 420 mg/ Sodium (Chloride) 100 mls @ 200 mls/hr IV QOTHERDAY [facility] Stop: 12/15/16 10:31 Last Admin: 11/21/16 10:18 Dose: 200 mls/hr Insulin Detemir (Levemir) 7 unit SC BID [facility] Last Admin: 11/22/16 17:16 Dose: 7 unit Insulin Human Lispro (Humalog Med) 0 units SC ACHS [facility] PRN Reason: Protocol Last Admin: 11/23/16 08:19 Dose: 8 units Ondansetron HCl (Zofran Inj) 4 mg IVP Q6H PRN PRN Reason: Nausea/Vomiting Pantoprazole Sodium (Protonix Ec Tab) 40 mg PO DAILY [facility] Last Admin: 11/21/16 10:18 Dose: 40 mg Sodium Bicarbonate (Sodium Bicarbonate Tab) 3,900 mg PO QID [facility] Last Admin: 11/18/16 17:39 Dose: 3,900 mg - Labs Labs: 11/23/16 06:30 11/23/16 06:30 PT 13.2 Seconds (9.9-11.8) H 11/11/16 05:40 INR 1.22 (0.93-1.08) H 11/11/16 05:40 APTT 32.0 Seconds (23.7-30.8) H 11/11/16 05:40 - Constitutional Appears: Well, Non-toxic, No Acute Distress - Extremities Exam Additional comments: Left lower extremity focused examination. Dressings are clean, dry, and intact with no strikethrough noted. VASC: DP and PT pulses palpable 2/4 b/l. TG WNL b/l. No edema noted to left foot. NEURO: Gross sensation absent bilaterally. DERM: LLE = One uniform full thickness ulceration noted to left medial heel measuring approximately 3.6 x 2.8 x 1.1 cm with wound base appearing as a granular ring and fibrotic core no active drainage noted. No acute signs of infection. RLE = Nonblanchable patch of erythema noted to plantarposterior calcaneus. ORTHO: No pain on palpation noted. - Neurological Exam Neurological Exam: Alert, Awake, Oriented x3 - Psychiatric Exam Psychiatric exam: Normal Affect, Normal Mood Assessment and Plan - Assessment and Plan (Free Text) Assessment: 36 year old female PMHx IDDM, renal failure, sepsis, metabolic acidosis, UTI, CKD, anemia 1) s/p left foot incision and drainage with wound debridement; 2) Stage 1 pressure ulcer right heel Plan: Patient seen and evaluated at bedside Chart, vitals, labs reviewed - afebrile, WBC=14.8 Discussed the plan in detail with attending Dr. Craven Left foot wound culture = MRSA Urine culture - yeast Per ID, continue renally-adjusted Daptomycin; patient will need 6 weeks of abx Wounds cleansed with saline, dressed with Santyl, 4x4, Maxosorb, ABD, and kerlix. Patient to wear multipodus boots at all times while in bed to prevent progression of pressure ulcer formation R heel. Patient may WBAT in Darco Heel Wedge to the left and surgical shoe to the right. Darco Heel Wedge must be worn to the left at all times when ambulating Continue Eucerin cream bilateral LE BID Prognosis for limb salvage poor At this point, no further debridements are considered for left foot; will be seen in followup Podiatry will continue to follow patient while in house <Logan Craven - Last Filed: 11/25/16 10:13> Objective - Vital Signs/Intake and Output Vital Signs (last 24 hours): Temp Pulse Resp BP Pulse Ox 97.8 F 94 H 98 H 155/104 H 19 L 11/24/16 06:00 11/24/16 06:00 11/24/16 06:00 11/24/16 21:49 11/24/16 06:00 Intake and Output: 11/25/16 11/25/16 06:59 18:59 Intake Total 1280 Output Total 1000 Balance 280 - Medications Medications: Current Medications Acetaminophen (Tylenol 325mg Tab) 650 mg PO Q4 PRN PRN Reason: Pain, Mild (1-3) Last Admin: 11/22/16 17:18 Dose: 650 mg Artificial Tears (Artificial Tears) 0.2 ml OU DAILY PRN PRN Reason: Dry skin Last Admin: 11/07/16 10:25 Dose: 2 drop Benzocaine/Menthol (Cepacol Sore Throat) 1 trent MT BID PRN PRN Reason: Sore Throat Last Admin: 11/22/16 21:53 Dose: 1 trent Cadexomer Iodine (Iodosorb) 0 gm TOP DAILY [facility] Last Admin: 11/24/16 10:41 Dose: 1 gm Carvedilol (Coreg) 6.25 mg PO BID [facility] Last Admin: 11/24/16 17:28 Dose: 6.25 mg Collagenase (Santyl) 0 gm TOP DAILY [facility] Last Admin: 11/24/16 12:24 Dose: 1 applic Furosemide (Lasix) 80 mg IVP Q12 [facility] Last Admin: 11/24/16 21:49 Dose: Not Given Daptomycin 420 mg/ Sodium (Chloride) 100 mls @ 200 mls/hr IV QOTHERDAY [facility] Stop: 12/15/16 10:31 Last Admin: 11/23/16 10:04 Dose: 200 mls/hr Micafungin Sodium 100 mg/ (Sodium Chloride) 100 mls @ 100 mls/hr IV DAILY [facility] PRN Reason: Protocol Stop: 12/22/16 10:01 Last Admin: 11/24/16 10:22 Dose: 100 mls/hr Insulin Detemir (Levemir) 8 unit SC BID [facility] Last Admin: 11/24/16 17:27 Dose: 8 unit Insulin Human Lispro (Humalog Med) 0 units SC ACHS [facility] PRN Reason: Protocol Last Admin: 11/25/16 08:04 Dose: Not Given Ondansetron HCl (Zofran Inj) 4 mg IVP Q6H PRN PRN Reason: Nausea/Vomiting Pantoprazole Sodium (Protonix Ec Tab) 40 mg PO DAILY [facility] Last Admin: 11/24/16 10:32 Dose: 40 mg Sodium Bicarbonate (Sodium Bicarbonate Tab) 3,900 mg PO QID [facility] Last Admin: 11/18/16 17:39 Dose: 3,900 mg - Labs Labs: 11/25/16 07:36 11/25/16 07:36 PT 13.2 Seconds (9.9-11.8) H 11/11/16 05:40 INR 1.22 (0.93-1.08) H 11/11/16 05:40 APTT 32.0 Seconds (23.7-30.8) H 11/11/16 05:40 Attending/Attestation - Attestation I have personally seen and examined this patient.: Yes I have fully participated in the care of the patient.: Yes I have reviewed all pertinent clinical information, including history, physical exam and plan: Yes
[2016-11-23] MEDS: Insulin Detemir 100 units/ml Vial (Levemir) SC SCH ×2 (09:40→17:22)
[2016-11-23] MEDS: Fluconazole IV 200mg/100 ml NS 100 MG in Premixed IV 1 EA IVPB SCH (09:41)
[2016-11-23] MEDS: Pantoprazole 40 mg EC Tab PO SCH (09:41)
[2016-11-23] MEDS: CADEXOMER IODINE 0.9% GEL 10G TOP SCH (09:41)
[2016-11-23] MEDS: Collagenase 250 Units/gm Ointment(30 gm) TOP SCH (09:42)
[2016-11-23] MEDS ORDERED: CADEXOMER IODINE 0.9% GEL 10G TOP SCH (10:00)
--- NOTE | 2016-11-23 11:31 | CP.PCM.PN ---
<Ata Ackerman - Last Filed: 11/23/16 11:25> Subjective - Date & Time of Evaluation Date of Evaluation: 11/23/16 Time of Evaluation: 09:45 - Subjective Subjective: Subjective: Patient seen and examined at bedside. Resting comfortably in bed. States she will be compliant for HD schedule but is requesting to go home by upcoming Friday. Patient tachy in 100s-110 overnight. Offers no new complaints. Denies f /c/cp/sob/abdominal pain/n/v/d/c/urinary sxs. Physical Examination: - Constitutional Appears: NAD - Head Exam Head Exam: ATRAUMATIC, NORMAL INSPECTION, NORMOCEPHALIC - Eye Exam Eye Exam: EOMI, Normal appearance, PERRL Pupil Exam: NORMAL ACCOMODATION, PERRL - ENT Exam ENT Exam: Mucous Membranes Moist, Normal Exam - Respiratory Exam Respiratory Exam: Clear to Auscultation Bilateral, NORMAL BREATHING PATTERN - Cardiovascular Exam Cardiovascular Exam: REGULAR RHYTHM, +S1, +S2 - GI/Abdominal Exam GI & Abdominal Exam: Normal Bowel Sounds, Soft. absent: Tenderness - Extremities Exam Extremities exam: left foot bandaged - Back Exam Back exam: CVA tenderness (L), CVA tenderness (R) - Neurological Exam Neurological exam: Patient is awake, alert, responds to verbal stimuli, answers questions appropriately, follows commands, and moves extremities past midline - Psychiatric Exam Psychiatric exam: Normal Affect, Normal Mood Assessment and Plan: Worsening CKD - Cr decreased after getting HD yesterday, Dr. Preston recs- renal biopsy completed showing MRSA and yeast, HD on MWF - c/w Diflucan and daptomycin as per ID - long-term dialysis will be required, patient received tunneled catheter placement for fdc dialysis - IV contrast CT reviewed- evidence of multiple renal abscesses- Dr. Handy IR guided aspiration of 5 cc of pus from abscess in right kidney and cultures sent - NAGMA noted- nephro recs- continue sodium bicarbonate tabs Septic Shock - Resolved - Repeat blood, urine, and stool cultures negative at this time - ID recommends continuing abx- continue daptomycin and antifungal flucanazole - L foot wound cx growing MRSA and corynebacterium LLE Osteomyelitis - s/p I&D - Will require 6 weeks of abx as per ID, will await recs - MRI L foot showed osteomyelitis of L calcaneus and diffuse plantar proximal aspect of L foot - wound care per podiatry- wound vac will be removed and the patient can follow with wound care when discharged. will continue follow while inpatient. - L Foot cx growing MRSA and corynbacterium Anemia likely 2/2 chronic dz - s/p 7u total pRBC transfused - Hgb 9.8 today - Dr. Weaver consulted- appreciate recs- note reviewed, patient does not want her care at this time as patient has Dr. Granados outpatient, as per note the patient claims she already completed a bone marrow biopsy and was recommended to take iron - kappa/lambda are elevated Hx DM - glucose levels in the 400s- monitor closely- advised to continue with recommended diet - increased levemir to 8 BID - ISS med Cardiomyopathy - ECHO shows EF of 35% - Cardiology consulted, Dr. Ryan- appreciate recommendations PPX - protonix - no scds due to foot infection, no lovenox due to renal function, no heparin due to decreasing H/H Patient case discussed with and plan approved by attending physician, Dr. Parker. Objective - Vital Signs/Intake and Output Vital Signs (last 24 hours): Temp Pulse Resp BP Pulse Ox 99.0 F 110 H 20 150/90 96 11/23/16 06:00 11/23/16 06:00 11/23/16 06:00 11/23/16 09:40 11/23/16 06:00 Intake and Output: 11/23/16 11/23/16 06:59 18:59 Intake Total 360 Output Total 600 Balance -240 - Medications Medications: Current Medications Acetaminophen (Tylenol 325mg Tab) 650 mg PO Q4 PRN PRN Reason: Pain, Mild (1-3) Last Admin: 11/22/16 17:18 Dose: 650 mg Artificial Tears (Artificial Tears) 0.2 ml OU DAILY PRN PRN Reason: Dry skin Last Admin: 11/07/16 10:25 Dose: 2 drop Benzocaine/Menthol (Cepacol Sore Throat) 1 trent MT BID PRN PRN Reason: Sore Throat Last Admin: 11/22/16 21:53 Dose: 1 trent Cadexomer Iodine (Iodosorb) 0 gm TOP DAILY [facility] Last Admin: 11/23/16 09:41 Dose: 1 gm Collagenase (Santyl) 0 gm TOP DAILY [facility] Last Admin: 11/23/16 09:42 Dose: 1 applic Furosemide (Lasix) 80 mg IVP Q12 [facility] Last Admin: 11/23/16 09:40 Dose: 80 mg Fluconazole 100 mg/ (Miscellaneous) 50 mls @ 100 mls/hr IVPB DAILY [facility] PRN Reason: Protocol Last Admin: 11/23/16 09:41 Dose: 100 mls/hr Daptomycin 420 mg/ Sodium (Chloride) 100 mls @ 200 mls/hr IV QOTHERDAY [facility] Stop: 12/15/16 10:31 Last Admin: 11/23/16 10:04 Dose: 200 mls/hr Insulin Detemir (Levemir) 7 unit SC BID [facility] Last Admin: 11/23/16 09:40 Dose: 7 unit Insulin Human Lispro (Humalog Med) 0 units SC ACHS [facility] PRN Reason: Protocol Last Admin: 11/23/16 08:19 Dose: 8 units Ondansetron HCl (Zofran Inj) 4 mg IVP Q6H PRN PRN Reason: Nausea/Vomiting Pantoprazole Sodium (Protonix Ec Tab) 40 mg PO DAILY [facility] Last Admin: 11/23/16 09:41 Dose: 40 mg Sodium Bicarbonate (Sodium Bicarbonate Tab) 3,900 mg PO QID [facility] Last Admin: 11/18/16 17:39 Dose: 3,900 mg - Labs Labs: 11/23/16 06:30 11/23/16 06:30 PT 13.2 Seconds (9.9-11.8) H 11/11/16 05:40 INR 1.22 (0.93-1.08) H 11/11/16 05:40 APTT 32.0 Seconds (23.7-30.8) H 11/11/16 05:40 <Agustin Parker - Last Filed: 11/23/16 12:31> Objective - Vital Signs/Intake and Output Vital Signs (last 24 hours): Temp Pulse Resp BP Pulse Ox 99.0 F 110 H 20 150/90 96 11/23/16 06:00 11/23/16 06:00 11/23/16 06:00 11/23/16 09:40 11/23/16 06:00 Intake and Output: 11/23/16 11/23/16 06:59 18:59 Intake Total 360 Output Total 600 Balance -240 - Medications Medications: Current Medications Acetaminophen (Tylenol 325mg Tab) 650 mg PO Q4 PRN PRN Reason: Pain, Mild (1-3) Last Admin: 11/22/16 17:18 Dose: 650 mg Artificial Tears (Artificial Tears) 0.2 ml OU DAILY PRN PRN Reason: Dry skin Last Admin: 11/07/16 10:25 Dose: 2 drop Benzocaine/Menthol (Cepacol Sore Throat) 1 trent MT BID PRN PRN Reason: Sore Throat Last Admin: 11/22/16 21:53 Dose: 1 trent Cadexomer Iodine (Iodosorb) 0 gm TOP DAILY [facility] Last Admin: 11/23/16 09:41 Dose: 1 gm Collagenase (Santyl) 0 gm TOP DAILY [facility] Last Admin: 11/23/16 09:42 Dose: 1 applic Furosemide (Lasix) 80 mg IVP Q12 [facility] Last Admin: 11/23/16 09:40 Dose: 80 mg Daptomycin 420 mg/ Sodium (Chloride) 100 mls @ 200 mls/hr IV QOTHERDAY [facility] Stop: 12/15/16 10:31 Last Admin: 11/23/16 10:04 Dose: 200 mls/hr Insulin Detemir (Levemir) 8 unit SC BID [facility] Insulin Human Lispro (Humalog Med) 0 units SC ACHS [facility] PRN Reason: Protocol Last Admin: 11/23/16 12:24 Dose: 5 units Ondansetron HCl (Zofran Inj) 4 mg IVP Q6H PRN PRN Reason: Nausea/Vomiting Pantoprazole Sodium (Protonix Ec Tab) 40 mg PO DAILY [facility] Last Admin: 11/23/16 09:41 Dose: 40 mg Sodium Bicarbonate (Sodium Bicarbonate Tab) 3,900 mg PO QID [facility] Last Admin: 11/18/16 17:39 Dose: 3,900 mg - Labs Labs: 11/23/16 06:30 11/23/16 06:30 PT 13.2 Seconds (9.9-11.8) H 11/11/16 05:40 INR 1.22 (0.93-1.08) H 11/11/16 05:40 APTT 32.0 Seconds (23.7-30.8) H 11/11/16 05:40 Attending/Attestation - Attestation I have personally seen and examined this patient.: Yes I have fully participated in the care of the patient.: Yes I have reviewed all pertinent clinical information, including history, physical exam and plan: Yes Notes (Text): I have seen and examined the patient at bedside. Agree with the above note with the following additions/ exceptions: Briefly this is 36 year old female with history of IDDM, HTN, dyslipidemia, wheel chair bound, 2 amputated toes of left leg and chronic LE ulcer who presented with severe sepsis secondary to acute pyelonephritis, osteomyelitis of L foot, Acute on chronic kidney disease and anemia. Continue daptomycin for MRSA of left foot and diflucan for yeast. She needs to complete 6 wks of IV dapto. Patient underwent renal biopsy which showed pyelo. CT scan w contrast revealed multiple renal abscesses. Yesterday patient had IR guided needle aspiration and cultures are pending. New tunneled catheter is in place. Will discuss with SW regarding outpatient HD set up as she does not have insurance. Long-term prognosis is poor secondary to multiple medical problems and noncompliance with follow-up. Patient reports that she wants to go home. She was explained that outpatient HD has not been set up yet due to lack of active insurance. Upon discharge patient will follow up with . Dr Agustin Parker
--- NOTE | 2016-11-23 12:41 | PN ---
DATE: 11/23/2016 SUBJECTIVE: The patient is in bed in no acute distress, and nontoxic. PHYSICAL EXAMINATION: VITAL SIGNS: On exam, temperature is 99, blood pressure is 150/90, respiratory rate is 20, and heart rate of 110. HEENT: Examination of HEENT is unremarkable. NECK: Supple. LUNGS: Have decreased breath sounds. HEART: Normal S1 and S2. GASTROINTESTINAL: Abdominal examination is soft and nontender. No organomegaly. No rebound. LABORATORY DATA: Examination reveals a white count of 15,600, hemoglobin of 9, and platelets of 439. BUN of 34, creatinine of 3.2 and alkaline phosphatase is 524. Urinalysis is noted. The microbiology from the aspirate is pending. ASSESSMENT AND PLAN: This is a 36-year-old female with severe sepsis, acute renal failure due to acute pyelonephritis and methicillin-resistant Staphylococcus aureus in the urine also the left foot abscess, osteomyelitis with methicillin-resistant Staphylococcus aureus, status post incision and drainage, day number 20 of daptomycin and the patient with diabetic neuropathy, hypertension, and renally adjusted daptomycin. Will need 4 to 6 weeks of antibiotics and the patient with hypertension, status post IR drainage of the perinephric abscess. We will discontinue the Diflucan, today is day number 8 of Diflucan, but will continue with the daptomycin every other day. We will follow with you. Dusty Crabtree MD
--- NOTE | 2016-11-23 18:29 | CP.PCM.PN ---
Subjective - Date & Time of Evaluation Date of Evaluation: 11/23/16 Time of Evaluation: 12:40 - Subjective Subjective: Patient reports feeling well; denies sob; tolerating diet; Objective - Vital Signs/Intake and Output Vital Signs (last 24 hours): Temp Pulse Resp BP Pulse Ox 99.6 F 105 H 20 149/98 H 97 11/23/16 18:11 11/23/16 18:11 11/23/16 18:11 11/23/16 18:11 11/23/16 18:11 Intake and Output: 11/23/16 11/23/16 06:59 18:59 Intake Total 360 700 Output Total 600 300 Balance -240 400 - Medications Medications: Current Medications Acetaminophen (Tylenol 325mg Tab) 650 mg PO Q4 PRN PRN Reason: Pain, Mild (1-3) Last Admin: 11/22/16 17:18 Dose: 650 mg Artificial Tears (Artificial Tears) 0.2 ml OU DAILY PRN PRN Reason: Dry skin Last Admin: 11/07/16 10:25 Dose: 2 drop Benzocaine/Menthol (Cepacol Sore Throat) 1 t[address] MT BID PRN PRN Reason: Sore Throat Last Admin: 11/22/16 21:53 Dose: 1 trent Cadexomer Iodine (Iodosorb) 0 gm TOP DAILY [facility] Last Admin: 11/23/16 09:41 Dose: 1 gm Carvedilol (Coreg) 6.25 mg PO BID [facility] Last Admin: 11/23/16 17:21 Dose: 6.25 mg Collagenase (Santyl) 0 gm TOP DAILY [facility] Last Admin: 11/23/16 09:42 Dose: 1 applic Furosemide (Lasix) 80 mg IVP Q12 [facility] Last Admin: 11/23/16 09:40 Dose: 80 mg Daptomycin 420 mg/ Sodium (Chloride) 100 mls @ 200 mls/hr IV QOTHERDAY [facility] Stop: 12/15/16 10:31 Last Admin: 11/23/16 10:04 Dose: 200 mls/hr Insulin Detemir (Levemir) 8 unit SC BID [facility] Last Admin: 11/23/16 17:22 Dose: Not Given Insulin Human Lispro (Humalog Med) 0 units SC ACHS [facility] PRN Reason: Protocol Last Admin: 11/23/16 17:22 Dose: Not Given Ondansetron HCl (Zofran Inj) 4 mg IVP Q6H PRN PRN Reason: Nausea/Vomiting Pantoprazole Sodium (Protonix Ec Tab) 40 mg PO DAILY [facility] Last Admin: 11/23/16 09:41 Dose: 40 mg Sodium Bicarbonate (Sodium Bicarbonate Tab) 3,900 mg PO QID [facility] Last Admin: 11/18/16 17:39 Dose: 3,900 mg - Labs Labs: 11/23/16 06:30 11/23/16 06:30 PT 13.2 Seconds (9.9-11.8) H 11/11/16 05:40 INR 1.22 (0.93-1.08) H 11/11/16 05:40 APTT 32.0 Seconds (23.7-30.8) H 11/11/16 05:40 - Constitutional Appears: Non-toxic, No Acute Distress - Head Exam Head Exam: NORMAL INSPECTION - Eye Exam Eye Exam: Normal appearance - ENT Exam ENT Exam: Mucous Membranes Moist - Respiratory Exam Respiratory Exam: Clear to Ausculation Bilateral. absent: Respiratory Distress - Cardiovascular Exam Cardiovascular Exam: RRR, +S1, +S2 - GI/Abdominal Exam GI & Abdominal Exam: Soft. absent: Distended, Tenderness - Extremities Exam Additional comments: no leg edema; - Neurological Exam Neurological Exam: Alert, Awake - Psychiatric Exam Psychiatric exam: Normal Affect, Normal Mood - Skin Skin Exam: Warm. absent: Cyanosis Assessment and Plan (1) Acute renal failure Assessment & Plan: EMMETT on CKD; secondary to pyelonephritis w/ multiple renal abcesses bilaterally; HD dependent; will assess on Friday if rise in serum creatinine is slowing, otherwise to continue HD qMWF and will need outpatient placement (tunneled HD cath in place); s/p aspiration of one of the larger renal abcesses; gram stain neg but many neutrophils present, may indicate infection is clearing with dapto; mainstay of treatment is to continue antibiotics for total of 6 weeks; Status: Acute (2) CKD (chronic kidney disease) Assessment & Plan: Secondary to DM, however, residual interstitial fibrosis and tubular atrophy may occur from such severe pyelo which may leave patient as ESRD despite treating the pyelo with prolonged abx; steroids may be helpful but patient's sugars are already uncontrolled, especially with non-adherance to diet even while in the hospital; Status: Chronic (3) Anemia Assessment & Plan: Due to chronic disease/renal insufficiency; last dose of aranesp 1 week ago, will continue on next HD; Status: Acute (4) Metabolic acidosis Assessment & Plan: Stable on HD; Status: Acute (5) Sepsis Assessment & Plan: On dapto and floconazole for osteo and pyelo with no signs of systemic illness, however, guarded oysterman prognosis in patient with likely continuous seeding of infection from necrotic L foot (had been advised for amputation previously); continue dapto dosing for HD; Status: Acute (6) CHF (congestive heart failure) Assessment & Plan: With severe systolic dysfunction; currently asymptomatic although is bedbound; continue lasix IV 80 q12h on non-HD days; restarting coreg for BP control; Status: Acute
[2016-11-24 07:19] LABS: BASO # 0.03 K/mm3 (0.0-2.0); BASO % 0.2 % (0.0-3.0); EOS # 0.5 (0.0-0.7); GRAN # 9.96 (1.4-6.5); GRAN % 75.3 % (50.0-68.0); HEMATOCRIT 26.8 % (36.0-48.0); LYMPH # 1.8 (1.2-3.4); LYMPH % 13.8 % (22.0-35.0); MEAN CORPUSCULAR HEMOGLOBIN 28.6 pg (25.0-35.0); MEAN CORPUSCULAR HGB CONC 32.1 g/dl (31.0-37.0); MEAN PLATELET VOLUME 9.4 fl (7.0-11.0); MONO # 0.9 (0.1-0.6); MONO % 6.7 % (1.0-6.0); WHITE BLOOD COUNT 13.2 10^3/ul (4.5-11.0)
[2016-11-24 07:31] LABS: ALB/GLOB RATIO 0.6 (1.1-1.8); BILIRUBIN,TOTAL 0.5 mg/dL (0.2-1.3); CALCIUM 8.3 mg/dL (8.4-10.5); POTASSIUM 3.6 mmol/L (3.6-5.0)
[2016-11-24] MEDS: Insulin Lispro (humaLOG) MEDIUM Coverage SC SCH ×4 (08:39→21:30)
[2016-11-24] MEDS: Pantoprazole 40 mg EC Tab PO SCH ×2 (10:21→10:32)
[2016-11-24] MEDS: Micafungin 100 MG in Sodium Chloride 0.9% 100 ML IV SCH (10:22)
[2016-11-24] MEDS: Insulin Detemir 100 units/ml Vial (Levemir) SC SCH ×2 (10:40→17:27)
[2016-11-24] MEDS: CADEXOMER IODINE 0.9% GEL 10G TOP SCH (10:41)
--- NOTE | 2016-11-24 12:00 | CP.PCM.PN ---
<Ata Ackerman - Last Filed: 11/24/16 11:58> Subjective - Date & Time of Evaluation Date of Evaluation: 11/24/16 Time of Evaluation: 10:20 - Subjective Subjective: Subjective: Patient seen and examined at bedside. Resting comfortably in bed. Elevated BP noted overnight. Offers no new complaints. Denies f/c/cp/sob/abdominal pain/n/v/ d/c/urinary sxs. Physical Examination: - Constitutional Appears: NAD - Head Exam Head Exam: ATRAUMATIC, NORMAL INSPECTION, NORMOCEPHALIC - Eye Exam Eye Exam: EOMI, Normal appearance, PERRL Pupil Exam: NORMAL ACCOMODATION, PERRL - ENT Exam ENT Exam: Mucous Membranes Moist, Normal Exam - Respiratory Exam Respiratory Exam: Clear to Auscultation Bilateral, NORMAL BREATHING PATTERN - Cardiovascular Exam Cardiovascular Exam: REGULAR RHYTHM, +S1, +S2 - GI/Abdominal Exam GI & Abdominal Exam: Normal Bowel Sounds, Soft. absent: Tenderness - Extremities Exam Extremities exam: left foot bandaged - Back Exam Back exam: CVA tenderness (L), CVA tenderness (R) - Neurological Exam Neurological exam: Patient is awake, alert, responds to verbal stimuli, answers questions appropriately, follows commands, and moves extremities past midline - Psychiatric Exam Psychiatric exam: Normal Affect, Normal Mood Assessment and Plan: Worsening CKD - Cr increased getting HD tomorrow, Dr. Preston recs- renal biopsy completed showing MRSA and yeast, HD on MWF - c/w Diflucan and daptomycin as per ID - long-term dialysis will be required, patient received tunneled catheter placement for [facility] dialysis - IV contrast CT reviewed- evidence of multiple renal abscesses- Dr. Handy IR guided aspiration of 5 cc of pus from abscess in right kidney and cultures sent - shows yeast - NAGMA noted- nephro recs- continue sodium bicarbonate tabs Septic Shock - Resolved - Repeat blood, urine, and stool cultures negative at this time - ID recommends continuing abx- continue daptomycin and antifungal flucanazole - L foot wound cx growing MRSA and corynebacterium LLE Osteomyelitis - s/p I&D - Will require 6 weeks of abx as per ID, will await recs - MRI L foot showed osteomyelitis of L calcaneus and diffuse plantar proximal aspect of L foot - wound care per podiatry- wound vac will be removed and the patient can follow with wound care when discharged. will continue follow while inpatient. - L Foot cx growing MRSA and corynbacterium - WBC downtrending Anemia likely 2/2 chronic dz - s/p 7u total pRBC transfused - Hgb trended and stable - Dr. Weaver consulted- appreciate recs- note reviewed, patient does not want her care at this time as patient has Dr. Granados outpatient, as per note the patient claims she already completed a bone marrow biopsy and was recommended to take iron - kappa/lambda are elevated Hx DM - glucose levels in the 200s- monitor closely- advised to continue with recommended diet - c/w levemir to 8 BID - ISS med Cardiomyopathy - ECHO shows EF of 35% - Cardiology consulted, Dr. Ryan- appreciate recommendations PPX - protonix - no scds due to foot infection, no lovenox due to renal function, no heparin due to decreasing H/H Patient case discussed with and plan approved by attending physician, Dr. Parker. Objective - Vital Signs/Intake and Output Vital Signs (last 24 hours): Temp Pulse Resp BP Pulse Ox 97.8 F 94 H 98 H 155/107 H 19 L 11/24/16 06:00 11/24/16 06:00 11/24/16 06:00 11/24/16 10:21 11/24/16 06:00 Intake and Output: 11/24/16 11/24/16 06:59 18:59 Intake Total 420 Output Total 900 Balance -480 - Medications Medications: Current Medications Acetaminophen (Tylenol 325mg Tab) 650 mg PO Q4 PRN PRN Reason: Pain, Mild (1-3) Last Admin: 11/22/16 17:18 Dose: 650 mg Artificial Tears (Artificial Tears) 0.2 ml OU DAILY PRN PRN Reason: Dry skin Last Admin: 11/07/16 10:25 Dose: 2 drop Benzocaine/Menthol (Cepacol Sore Throat) 1 trent MT BID PRN PRN Reason: Sore Throat Last Admin: 11/22/16 21:53 Dose: 1 trent Cadexomer Iodine (Iodosorb) 0 gm TOP DAILY [facility] Last Admin: 11/24/16 10:41 Dose: 1 gm Carvedilol (Coreg) 6.25 mg PO BID [facility] Last Admin: 11/24/16 10:21 Dose: 6.25 mg Collagenase (Santyl) 0 gm TOP DAILY [facility] Last Admin: 11/23/16 09:42 Dose: 1 applic Furosemide (Lasix) 80 mg IVP Q12 [facility] Last Admin: 11/24/16 10:42 Dose: Not Given Daptomycin 420 mg/ Sodium (Chloride) 100 mls @ 200 mls/hr IV QOTHERDAY [facility] Stop: 12/15/16 10:31 Last Admin: 11/23/16 10:04 Dose: 200 mls/hr Micafungin Sodium 100 mg/ (Sodium Chloride) 100 mls @ 100 mls/hr IV DAILY [facility] PRN Reason: Protocol Stop: 12/22/16 10:01 Last Admin: 11/24/16 10:22 Dose: 100 mls/hr Insulin Detemir (Levemir) 8 unit SC BID [facility] Last Admin: 11/24/16 10:40 Dose: 5 unit Insulin Human Lispro (Humalog Med) 0 units SC ACHS [facility] PRN Reason: Protocol Last Admin: 11/24/16 08:39 Dose: 3 units Ondansetron HCl (Zofran Inj) 4 mg IVP Q6H PRN PRN Reason: Nausea/Vomiting Pantoprazole Sodium (Protonix Ec Tab) 40 mg PO DAILY [facility] Last Admin: 11/24/16 10:32 Dose: 40 mg Sodium Bicarbonate (Sodium Bicarbonate Tab) 3,900 mg PO QID [facility] Last Admin: 11/18/16 17:39 Dose: 3,900 mg - Labs Labs: 11/24/16 06:30 11/24/16 06:30 PT 13.2 Seconds (9.9-11.8) H 11/11/16 05:40 INR 1.22 (0.93-1.08) H 11/11/16 05:40 APTT 32.0 Seconds (23.7-30.8) H 11/11/16 05:40 <Agustin Parker - Last Filed: 11/24/16 13:11> Objective - Vital Signs/Intake and Output Vital Signs (last 24 hours): Temp Pulse Resp BP Pulse Ox 97.8 F 94 H 98 H 155/107 H 19 L 11/24/16 06:00 11/24/16 06:00 11/24/16 06:00 11/24/16 10:21 11/24/16 06:00 Intake and Output: 11/24/16 11/24/16 06:59 18:59 Intake Total 420 Output Total 900 Balance -480 - Medications Medications: Current Medications Acetaminophen (Tylenol 325mg Tab) 650 mg PO Q4 PRN PRN Reason: Pain, Mild (1-3) Last Admin: 11/22/16 17:18 Dose: 650 mg Artificial Tears (Artificial Tears) 0.2 ml OU DAILY PRN PRN Reason: Dry skin Last Admin: 11/07/16 10:25 Dose: 2 drop Benzocaine/Menthol (Cepacol Sore Throat) 1 trent MT BID PRN PRN Reason: Sore Throat Last Admin: 11/22/16 21:53 Dose: 1 trent Cadexomer Iodine (Iodosorb) 0 gm TOP DAILY [facility] Last Admin: 11/24/16 10:41 Dose: 1 gm Carvedilol (Coreg) 6.25 mg PO BID [facility] Last Admin: 11/24/16 10:21 Dose: 6.25 mg Collagenase (Santyl) 0 gm TOP DAILY [facility] Last Admin: 11/24/16 12:24 Dose: 1 applic Furosemide (Lasix) 80 mg IVP Q12 [facility] Last Admin: 11/24/16 10:42 Dose: Not Given Daptomycin 420 mg/ Sodium (Chloride) 100 mls @ 200 mls/hr IV QOTHERDAY [facility] Stop: 12/15/16 10:31 Last Admin: 11/23/16 10:04 Dose: 200 mls/hr Micafungin Sodium 100 mg/ (Sodium Chloride) 100 mls @ 100 mls/hr IV DAILY [facility] PRN Reason: Protocol Stop: 12/22/16 10:01 Last Admin: 11/24/16 10:22 Dose: 100 mls/hr Insulin Detemir (Levemir) 8 unit SC BID [facility] Last Admin: 11/24/16 10:40 Dose: 5 unit Insulin Human Lispro (Humalog Med) 0 units SC ACHS [facility] PRN Reason: Protocol Last Admin: 11/24/16 12:23 Dose: Not Given Ondansetron HCl (Zofran Inj) 4 mg IVP Q6H PRN PRN Reason: Nausea/Vomiting Pantoprazole Sodium (Protonix Ec Tab) 40 mg PO DAILY [facility] Last Admin: 11/24/16 10:32 Dose: 40 mg Sodium Bicarbonate (Sodium Bicarbonate Tab) 3,900 mg PO QID [facility] Last Admin: 11/18/16 17:39 Dose: 3,900 mg - Labs Labs: 11/24/16 06:30 11/24/16 06:30 PT 13.2 Seconds (9.9-11.8) H 11/11/16 05:40 INR 1.22 (0.93-1.08) H 11/11/16 05:40 APTT 32.0 Seconds (23.7-30.8) H 11/11/16 05:40 Attending/Attestation - Attestation I have personally seen and examined this patient.: Yes I have fully participated in the care of the patient.: Yes I have reviewed all pertinent clinical information, including history, physical exam and plan: Yes Notes (Text): I have seen and examined the patient at bedside. Agree with the above note with the following additions/ exceptions: Briefly this is 36 year old female with history of IDDM, HTN, dyslipidemia, wheel chair bound, 2 amputated toes of left leg and chronic LE ulcer who presented with severe sepsis secondary to acute pyelonephritis, osteomyelitis of L foot, Acute on chronic kidney disease and anemia. Continue daptomycin for MRSA of left foot and diflucan for yeast. She needs to complete 6 wks of IV dapto. Patient underwent renal biopsy which showed pyelo. CT scan w contrast revealed multiple renal abscesses. Patient had IR guided needle aspiration and cultures are growing yeast. New tunneled catheter is in place. Will discuss with SW regarding outpatient HD set up as she does not have insurance. Long-term prognosis is poor secondary to multiple medical problems and noncompliance with follow-up. Patient reports that she wants to go home. She was explained that outpatient HD has not been set up yet due to lack of active insurance. Upon discharge patient will follow up with . Dr Agustin Parker
--- NOTE | 2016-11-24 12:08 | CP.PCM.PN ---
<AckermanAlexysenzochoco - Last Filed: 11/24/16 12:05> Subjective - Date & Time of Evaluation Date of Evaluation: 11/24/16 Time of Evaluation: 12:05 - Subjective Subjective: 36 y/o female seen and evaluated at bedside POD#24 left foot I&D (DOS: 10/31/16) . Patient appears to be resting comfortably in her bed and is in NAD. Patient is AAOx3 and responds to all verbal commands. Patient denies of any acute overnight events. Patient denies of any pain to her lower extremity now. Patient denies of any F/N/V/C/SOB/Chest pain. Patient denies of any other pedal complains at this time. Objective - Vital Signs/Intake and Output Vital Signs (last 24 hours): Temp Pulse Resp BP Pulse Ox 97.8 F 94 H 98 H 155/107 H 19 L 11/24/16 06:00 11/24/16 06:00 11/24/16 06:00 11/24/16 10:21 11/24/16 06:00 Intake and Output: 11/24/16 11/24/16 06:59 18:59 Intake Total 420 Output Total 900 Balance -480 - Medications Medications: Current Medications Acetaminophen (Tylenol 325mg Tab) 650 mg PO Q4 PRN PRN Reason: Pain, Mild (1-3) Last Admin: 11/22/16 17:18 Dose: 650 mg Artificial Tears (Artificial Tears) 0.2 ml OU DAILY PRN PRN Reason: Dry skin Last Admin: 11/07/16 10:25 Dose: 2 drop Benzocaine/Menthol (Cepacol Sore Throat) 1 trent MT BID PRN PRN Reason: Sore Throat Last Admin: 11/22/16 21:53 Dose: 1 trent Cadexomer Iodine (Iodosorb) 0 gm TOP DAILY [facility] Last Admin: 11/24/16 10:41 Dose: 1 gm Carvedilol (Coreg) 6.25 mg PO BID [facility] Last Admin: 11/24/16 10:21 Dose: 6.25 mg Collagenase (Santyl) 0 gm TOP DAILY [facility] Last Admin: 11/23/16 09:42 Dose: 1 applic Furosemide (Lasix) 80 mg IVP Q12 [facility] Last Admin: 11/24/16 10:42 Dose: Not Given Daptomycin 420 mg/ Sodium (Chloride) 100 mls @ 200 mls/hr IV QOTHERDAY [facility] Stop: 12/15/16 10:31 Last Admin: 11/23/16 10:04 Dose: 200 mls/hr Micafungin Sodium 100 mg/ (Sodium Chloride) 100 mls @ 100 mls/hr IV DAILY [facility] PRN Reason: Protocol Stop: 12/22/16 10:01 Last Admin: 11/24/16 10:22 Dose: 100 mls/hr Insulin Detemir (Levemir) 8 unit SC BID [facility] Last Admin: 11/24/16 10:40 Dose: 5 unit Insulin Human Lispro (Humalog Med) 0 units SC ACHS [facility] PRN Reason: Protocol Last Admin: 11/24/16 08:39 Dose: 3 units Ondansetron HCl (Zofran Inj) 4 mg IVP Q6H PRN PRN Reason: Nausea/Vomiting Pantoprazole Sodium (Protonix Ec Tab) 40 mg PO DAILY [facility] Last Admin: 11/24/16 10:32 Dose: 40 mg Sodium Bicarbonate (Sodium Bicarbonate Tab) 3,900 mg PO QID [facility] Last Admin: 11/18/16 17:39 Dose: 3,900 mg - Labs Labs: 11/24/16 06:30 11/24/16 06:30 PT 13.2 Seconds (9.9-11.8) H 11/11/16 05:40 INR 1.22 (0.93-1.08) H 11/11/16 05:40 APTT 32.0 Seconds (23.7-30.8) H 11/11/16 05:40 - Constitutional Appears: Well, Non-toxic, No Acute Distress - Extremities Exam Additional comments: Left lower extremity focused examination. Dressings are clean, dry, and intact with no strikethrough noted. VASC: DP and PT pulses palpable 2/4 b/l. TG WNL b/l. No edema noted to left foot. NEURO: Gross sensation absent bilaterally. DERM: LLE = One uniform full thickness ulceration noted to left medial heel measuring approximately 3.6 x 2.8 x 1.1 cm with wound base appearing as a granular ring and fibrotic core no active drainage noted. No acute signs of infection. RLE = Nonblanchable patch of erythema noted to plantarposterior calcaneus. ORTHO: No pain on palpation noted. - Neurological Exam Neurological Exam: Alert, Awake, Oriented x3 - Psychiatric Exam Psychiatric exam: Normal Affect, Normal Mood Assessment and Plan - Assessment and Plan (Free Text) Assessment: 36 year old female PMHx IDDM, renal failure, sepsis, metabolic acidosis, UTI, CKD, anemia 1) s/p left foot incision and drainage with wound debridement; 2) Stage 1 pressure ulcer right heel Plan: Patient seen and evaluated at bedside Discussed the plan in detail with attending Dr. Craven Chart, vitals, labs reviewed - afebrile, WBC=13.2 Left foot wound culture = MRSA Urine culture - yeast Per ID, continue renally-adjusted Daptomycin; patient will need 6 weeks of abx Wounds cleansed with saline, dressed with Santyl, 4x4, Maxosorb, ABD, and kerlix. Patient to wear multipodus boots at all times while in bed to prevent progression of pressure ulcer formation R heel. Patient may WBAT in Darco Heel Wedge to the left and surgical shoe to the right. Darco Heel Wedge must be worn to the left at all times when ambulating Continue Eucerin cream bilateral LE BID Prognosis for limb salvage poor At this point, no further debridements are considered for left foot; will be seen in followup Podiatry will continue to follow patient while in house <Logan Craven - Last Filed: 11/25/16 10:15> Objective - Vital Signs/Intake and Output Vital Signs (last 24 hours): Temp Pulse Resp BP Pulse Ox 97.8 F 94 H 98 H 155/104 H 19 L 11/24/16 06:00 11/24/16 06:00 11/24/16 06:00 11/24/16 21:49 11/24/16 06:00 Intake and Output: 11/25/16 11/25/16 06:59 18:59 Intake Total 1280 Output Total 1000 Balance 280 - Medications Medications: Current Medications Acetaminophen (Tylenol 325mg Tab) 650 mg PO Q4 PRN PRN Reason: Pain, Mild (1-3) Last Admin: 11/22/16 17:18 Dose: 650 mg Artificial Tears (Artificial Tears) 0.2 ml OU DAILY PRN PRN Reason: Dry skin Last Admin: 11/07/16 10:25 Dose: 2 drop Benzocaine/Menthol (Cepacol Sore Throat) 1 trent MT BID PRN PRN Reason: Sore Throat Last Admin: 11/22/16 21:53 Dose: 1 trent Cadexomer Iodine (Iodosorb) 0 gm TOP DAILY [facility] Last Admin: 11/24/16 10:41 Dose: 1 gm Carvedilol (Coreg) 6.25 mg PO BID [facility] Last Admin: 11/24/16 17:28 Dose: 6.25 mg Collagenase (Santyl) 0 gm TOP DAILY [facility] Last Admin: 11/24/16 12:24 Dose: 1 applic Furosemide (Lasix) 80 mg IVP Q12 [facility] Last Admin: 11/24/16 21:49 Dose: Not Given Daptomycin 420 mg/ Sodium (Chloride) 100 mls @ 200 mls/hr IV QOTHERDAY [facility] Stop: 12/15/16 10:31 Last Admin: 11/23/16 10:04 Dose: 200 mls/hr Micafungin Sodium 100 mg/ (Sodium Chloride) 100 mls @ 100 mls/hr IV DAILY [facility] PRN Reason: Protocol Stop: 12/22/16 10:01 Last Admin: 11/24/16 10:22 Dose: 100 mls/hr Insulin Detemir (Levemir) 8 unit SC BID [facility] Last Admin: 11/24/16 17:27 Dose: 8 unit Insulin Human Lispro (Humalog Med) 0 units SC ACHS [facility] PRN Reason: Protocol Last Admin: 11/25/16 08:04 Dose: Not Given Ondansetron HCl (Zofran Inj) 4 mg IVP Q6H PRN PRN Reason: Nausea/Vomiting Pantoprazole Sodium (Protonix Ec Tab) 40 mg PO DAILY [facility] Last Admin: 11/24/16 10:32 Dose: 40 mg Sodium Bicarbonate (Sodium Bicarbonate Tab) 3,900 mg PO QID [facility] Last Admin: 11/18/16 17:39 Dose: 3,900 mg - Labs Labs: 11/25/16 07:36 11/25/16 07:36 PT 13.2 Seconds (9.9-11.8) H 11/11/16 05:40 INR 1.22 (0.93-1.08) H 11/11/16 05:40 APTT 32.0 Seconds (23.7-30.8) H 11/11/16 05:40 Attending/Attestation - Attestation I have personally seen and examined this patient.: Yes I have fully participated in the care of the patient.: Yes I have reviewed all pertinent clinical information, including history, physical exam and plan: Yes
[2016-11-24] MEDS: Collagenase 250 Units/gm Ointment(30 gm) TOP SCH (12:24)
--- NOTE | 2016-11-24 14:10 | CP.PCM.PN ---
Subjective - Date & Time of Evaluation Date of Evaluation: 11/24/16 Time of Evaluation: 12:45 - Subjective Subjective: 36 yo F w/ DM, necrotic L foot, admitted with severe sepsis, L foot osteomyelitis, EMMETT on CKD, and pyelonephritis; Patient reports feeling well; tolerating diet; no breathing complaints; Objective - Vital Signs/Intake and Output Vital Signs (last 24 hours): Temp Pulse Resp BP Pulse Ox 97.8 F 94 H 98 H 155/107 H 19 L 11/24/16 06:00 11/24/16 06:00 11/24/16 06:00 11/24/16 10:21 11/24/16 06:00 Intake and Output: 11/24/16 11/24/16 06:59 18:59 Intake Total 420 Output Total 900 Balance -480 - Medications Medications: Current Medications Acetaminophen (Tylenol 325mg Tab) 650 mg PO Q4 PRN PRN Reason: Pain, Mild (1-3) Last Admin: 11/22/16 17:18 Dose: 650 mg Artificial Tears (Artificial Tears) 0.2 ml OU DAILY PRN PRN Reason: Dry skin Last Admin: 11/07/16 10:25 Dose: 2 drop Benzocaine/Menthol (Cepacol Sore Throat) 1 trent MT BID PRN PRN Reason: Sore Throat Last Admin: 11/22/16 21:53 Dose: 1 trent Cadexomer Iodine (Iodosorb) 0 gm TOP DAILY [facility] Last Admin: 11/24/16 10:41 Dose: 1 gm Carvedilol (Coreg) 6.25 mg PO BID [facility] Last Admin: 11/24/16 10:21 Dose: 6.25 mg Collagenase (Santyl) 0 gm TOP DAILY [facility] Last Admin: 11/24/16 12:24 Dose: 1 applic Furosemide (Lasix) 80 mg IVP Q12 [facility] Last Admin: 11/24/16 10:42 Dose: Not Given Daptomycin 420 mg/ Sodium (Chloride) 100 mls @ 200 mls/hr IV QOTHERDAY [facility] Stop: 12/15/16 10:31 Last Admin: 11/23/16 10:04 Dose: 200 mls/hr Micafungin Sodium 100 mg/ (Sodium Chloride) 100 mls @ 100 mls/hr IV DAILY [facility] PRN Reason: Protocol Stop: 12/22/16 10:01 Last Admin: 11/24/16 10:22 Dose: 100 mls/hr Insulin Detemir (Levemir) 8 unit SC BID [facility] Last Admin: 11/24/16 10:40 Dose: 5 unit Insulin Human Lispro (Humalog Med) 0 units SC ACHS [facility] PRN Reason: Protocol Last Admin: 11/24/16 12:23 Dose: Not Given Ondansetron HCl (Zofran Inj) 4 mg IVP Q6H PRN PRN Reason: Nausea/Vomiting Pantoprazole Sodium (Protonix Ec Tab) 40 mg PO DAILY [facility] Last Admin: 11/24/16 10:32 Dose: 40 mg Sodium Bicarbonate (Sodium Bicarbonate Tab) 3,900 mg PO QID [facility] Last Admin: 11/18/16 17:39 Dose: 3,900 mg - Labs Labs: 11/24/16 06:30 11/24/16 06:30 PT 13.2 Seconds (9.9-11.8) H 11/11/16 05:40 INR 1.22 (0.93-1.08) H 11/11/16 05:40 APTT 32.0 Seconds (23.7-30.8) H 11/11/16 05:40 - Constitutional Appears: Non-toxic, No Acute Distress - Head Exam Head Exam: NORMAL INSPECTION - Eye Exam Eye Exam: Normal appearance. absent: Scleral icterus - ENT Exam ENT Exam: Mucous Membranes Moist - Respiratory Exam Respiratory Exam: Clear to Ausculation Bilateral. absent: Rales, Rhonchi, Wheezes, Respiratory Distress - Cardiovascular Exam Cardiovascular Exam: RRR, +S1, +S2 - GI/Abdominal Exam GI & Abdominal Exam: Soft. absent: Distended, Tenderness - Extremities Exam Additional comments: no leg edema; - Neurological Exam Neurological Exam: Alert, Awake - Psychiatric Exam Psychiatric exam: Normal Mood. absent: Normal Affect - Skin Skin Exam: Warm. absent: Cyanosis Assessment and Plan (1) Acute renal failure Assessment & Plan: EMMETT on CKD; due to pyelonephritis per renal biopsy; s/p renal abcess aspiration that is growing yeast; ID input appreciated, added micafungin today (had already been on fluconazole); there may be a role for steroids to reduce inflammation but in patient who is very non-compliant with diet and running high sugars even in the hospital, steroids can be disastrous (not to mention the risk that immunosuppression carries); HD dependent; stable electrolyte and volume status; continuing with HD qMWF; lasix IV 80 mg bid on non-HD days; should arrange for outpatient HD; Status: Acute (2) CKD (chronic kidney disease) Assessment & Plan: Secondary to DM nephropathy; overall poor renal prognosis even if EMMETT resolves and patient is able to come off HD; Status: Chronic (3) Anemia Assessment & Plan: Hgb stable but below goal (10-11g); will give aranesp 80 mcg tomorrow on HD; Status: Acute (4) Metabolic acidosis Assessment & Plan: Being controlled by HD; Status: Acute (5) Sepsis Assessment & Plan: On dapto and micafungin; dapto being dosed for HD; Status: Acute (6) CHF (congestive heart failure) Assessment & Plan: With systolic dysfunction; asymptomatic; on coreg 6.25 mg bid, will increase if BP remains uncontrolled; Status: Acute
--- NOTE | 2016-11-24 15:11 | PN ---
DATE: 11/24/2016 SUBJECTIVE: The patient is in bed in no acute distress. PHYSICAL EXAMINATION: VITAL SIGNS: Temperature is 98, blood pressure is 150/70, respiratory rate of 18, heart rate of 90. HEENT: Unremarkable. NECK: Supple. LUNGS: Have decreased breath sounds. HEART: Normal S1, S2. ABDOMEN: Soft, nontender. LABORATORY EXAMINATION: Reveals a white count of 13,200, hemoglobin of 8, platelets of 380. BUN of 51, creatinine of 4.0. Urinalysis is noted and stool occult blood is positive. Serologies antibody is positive for hepatitis B surface antibody, hepatitis C is positive, however. PCR is negative. Dr. Preston's note is reviewed. The aspirate culture is positive for yeast, also the DA preparation is no organism, no fungal elements are seen. The patient has had yeast with the urine in the past, on two occasions. Review of orders reveals the patient to be on daptomycin. ASSESSMENT AND PLAN: This is a 36-year-old female seen earlier this morning with severe sepsis, acute renal failure due to acute pyelonephritis with methicillin-resistant Staphylococcus aureus in the urine also with a left foot abscess osteomyelitis with methicillin-resistant Staphylococcus aureus, status post incision and drainage, day number 21 of daptomycin in a patient with diabetic neuropathy, hypertension, renally adjusted daptomycin, will need 4 to 6 weeks of daptomycin status post CAT scan finding with perinephric abscess and status post CAT scan guided IR, drainage now growing yeast. The patient was already on Diflucan, but that was done. We will add Mycamine, concern about resistant Chelsey. Awaiting for identification and sensitivity of the yeast from the abscess from the IR culture. We will treat with daptomycin and Mycamine. We will start Mycamine and overall prognosis is poor. We will discuss with Dr. Josemanuel Handy. Dusty Crabtree MD
[2016-11-25] MEDS ORDERED: Darbepoetin Alfa 40 mcg/ml Inj IVP ONE ×2 (06:00→11:45)
[2016-11-25 07:39] LABS: BASO # 0.03 K/mm3 (0.0-2.0); BASO % 0.2 % (0.0-3.0); EOS # 0.4 (0.0-0.7); EOS % 3.3 % (1.5-5.0); GRAN # 10.51 (1.4-6.5); GRAN % 78.7 % (50.0-68.0); HEMATOCRIT 26.9 % (36.0-48.0); LYMPH # 1.5 (1.2-3.4); LYMPH % 11.5 % (22.0-35.0); MEAN CELL VOLUME 87.9 fl (80.0-105.0); MEAN CORPUSCULAR HEMOGLOBIN 28.4 pg (25.0-35.0); MEAN CORPUSCULAR HGB CONC 32.3 g/dl (31.0-37.0); MEAN PLATELET VOLUME 8.3 fl (7.0-11.0); MONO # 0.8 (0.1-0.6); MONO % 6.3 % (1.0-6.0); RED CELL DISTRIBUTION WIDTH 15.6 % (11.5-14.5); WHITE BLOOD COUNT 13.4 10^3/ul (4.5-11.0)
[2016-11-25 07:56] LABS: ALB/GLOB RATIO 0.6 (1.1-1.8); BILIRUBIN,TOTAL 0.5 mg/dL (0.2-1.3); CALCIUM 8.1 mg/dL (8.4-10.5); POTASSIUM 4.1 mmol/L (3.6-5.0); TOTAL PROTEIN 8.3 g/dL (5.8-8.3)
[2016-11-25] MEDS: Insulin Lispro (humaLOG) MEDIUM Coverage SC SCH ×4 (08:04→22:34)
--- NOTE | 2016-11-25 09:27 | CP.PCM.PN ---
<Pedrito Lobo - Last Filed: 11/25/16 09:24> Subjective - Date & Time of Evaluation Date of Evaluation: 11/25/16 Time of Evaluation: 09:24 - Subjective Subjective: 36 year old female seen and evaluated at bedside with mother POD#25 left foot I& D (DOS: 10/31/16). Patient is seen resting comfortably in bed and asleep during the time of encounter. Patient is AA0x3 and NAD. Patient denies of any acute overnight events. Patient denies of any pain to her lower extremity. Reports she hasn't worked with physical therapy over the weekend. Patient denies of any F/N/V/C/SOB/Chest pain. Patient denies of any other pedal complains at this time. Objective - Vital Signs/Intake and Output Vital Signs (last 24 hours): Temp Pulse Resp BP Pulse Ox 97.8 F 94 H 98 H 155/104 H 19 L 11/24/16 06:00 11/24/16 06:00 11/24/16 06:00 11/24/16 21:49 11/24/16 06:00 Intake and Output: 11/25/16 11/25/16 06:59 18:59 Intake Total 1280 Output Total 1000 Balance 280 - Medications Medications: Current Medications Acetaminophen (Tylenol 325mg Tab) 650 mg PO Q4 PRN PRN Reason: Pain, Mild (1-3) Last Admin: 11/22/16 17:18 Dose: 650 mg Artificial Tears (Artificial Tears) 0.2 ml OU DAILY PRN PRN Reason: Dry skin Last Admin: 11/07/16 10:25 Dose: 2 drop Benzocaine/Menthol (Cepacol Sore Throat) 1 trent MT BID PRN PRN Reason: Sore Throat Last Admin: 11/22/16 21:53 Dose: 1 trent Cadexomer Iodine (Iodosorb) 0 gm TOP DAILY [facility] Last Admin: 11/24/16 10:41 Dose: 1 gm Carvedilol (Coreg) 6.25 mg PO BID [facility] Last Admin: 11/24/16 17:28 Dose: 6.25 mg Collagenase (Santyl) 0 gm TOP DAILY [facility] Last Admin: 11/24/16 12:24 Dose: 1 applic Furosemide (Lasix) 80 mg IVP Q12 [facility] Last Admin: 11/24/16 21:49 Dose: Not Given Daptomycin 420 mg/ Sodium (Chloride) 100 mls @ 200 mls/hr IV QOTHERDAY [facility] Stop: 12/15/16 10:31 Last Admin: 11/23/16 10:04 Dose: 200 mls/hr Micafungin Sodium 100 mg/ (Sodium Chloride) 100 mls @ 100 mls/hr IV DAILY [facility] PRN Reason: Protocol Stop: 12/22/16 10:01 Last Admin: 11/24/16 10:22 Dose: 100 mls/hr Insulin Detemir (Levemir) 8 unit SC BID [facility] Last Admin: 11/24/16 17:27 Dose: 8 unit Insulin Human Lispro (Humalog Med) 0 units SC ACHS [facility] PRN Reason: Protocol Last Admin: 11/25/16 08:04 Dose: Not Given Ondansetron HCl (Zofran Inj) 4 mg IVP Q6H PRN PRN Reason: Nausea/Vomiting Pantoprazole Sodium (Protonix Ec Tab) 40 mg PO DAILY [facility] Last Admin: 11/24/16 10:32 Dose: 40 mg Sodium Bicarbonate (Sodium Bicarbonate Tab) 3,900 mg PO QID [facility] Last Admin: 11/18/16 17:39 Dose: 3,900 mg - Labs Labs: 11/25/16 07:36 11/25/16 07:36 PT 13.2 Seconds (9.9-11.8) H 11/11/16 05:40 INR 1.22 (0.93-1.08) H 11/11/16 05:40 APTT 32.0 Seconds (23.7-30.8) H 11/11/16 05:40 - Constitutional Appears: Well, Non-toxic, No Acute Distress - Extremities Exam Additional comments: Left lower extremity focused examination. Dressings are clean, dry, and intact with no strikethrough noted. VASC: DP and PT pulses palpable 2/4 b/l. TG WNL b/l. No edema noted to left foot. NEURO: Gross sensation absent bilaterally. DERM: LLE = One uniform full thickness ulceration noted to left medial heel measuring approximately 3.6 x 2.8 x 1.1 cm with wound base appearing as a granular ring and fibrotic core no active drainage noted. No acute signs of infection. RLE = Nonblanchable patch of erythema noted to plantarposterior calcaneus. ORTHO: No pain on palpation noted. - Neurological Exam Neurological Exam: Alert, Awake - Psychiatric Exam Psychiatric exam: Normal Affect, Normal Mood Assessment and Plan - Assessment and Plan (Free Text) Assessment: 36 year old female PMHx IDDM, renal failure, sepsis, metabolic acidosis, UTI, CKD, anemia 1) s/p left foot incision and drainage with wound debridement; 2) Stage 1 pressure ulcer right heel Plan: Patient seen and evaluated at bedside Discussed the plan in detail with attending Dr. Craven Chart, vitals, labs reviewed - afebrile, WBC=13.4 Left foot wound culture = MRSA Urine culture - yeast Per ID, continue renally-adjusted Daptomycin; patient will need 6 weeks of abx Wounds cleansed with saline, dressed with Santyl, 4x4, Maxosorb, ABD, and kerlix. Patient to wear multipodus boots at all times while in bed to prevent progression of pressure ulcer formation R heel. Patient may WBAT in Darco Heel Wedge to the left and surgical shoe to the right. Darco Heel Wedge must be worn to the left at all times when ambulating Continue Eucerin cream bilateral LE BID C/W physical therapy Prognosis for limb salvage poor At this point, no further debridements are considered for left foot; will be seen in followup Podiatry will continue to follow patient while in house <Logan Craven - Last Filed: 11/25/16 10:17> Objective - Vital Signs/Intake and Output Vital Signs (last 24 hours): Temp Pulse Resp BP Pulse Ox 97.8 F 94 H 98 H 155/104 H 19 L 11/24/16 06:00 11/24/16 06:00 11/24/16 06:00 11/24/16 21:49 11/24/16 06:00 Intake and Output: 11/25/16 11/25/16 06:59 18:59 Intake Total 1280 Output Total 1000 Balance 280 - Medications Medications: Current Medications Acetaminophen (Tylenol 325mg Tab) 650 mg PO Q4 PRN PRN Reason: Pain, Mild (1-3) Last Admin: 11/22/16 17:18 Dose: 650 mg Artificial Tears (Artificial Tears) 0.2 ml OU DAILY PRN PRN Reason: Dry skin Last Admin: 11/07/16 10:25 Dose: 2 drop Benzocaine/Menthol (Cepacol Sore Throat) 1 trent MT BID PRN PRN Reason: Sore Throat Last Admin: 11/22/16 21:53 Dose: 1 trent Cadexomer Iodine (Iodosorb) 0 gm TOP DAILY [facility] Last Admin: 11/24/16 10:41 Dose: 1 gm Carvedilol (Coreg) 6.25 mg PO BID [facility] Last Admin: 11/24/16 17:28 Dose: 6.25 mg Collagenase (Santyl) 0 gm TOP DAILY [facility] Last Admin: 11/24/16 12:24 Dose: 1 applic Furosemide (Lasix) 80 mg IVP Q12 [facility] Last Admin: 11/24/16 21:49 Dose: Not Given Daptomycin 420 mg/ Sodium (Chloride) 100 mls @ 200 mls/hr IV QOTHERDAY [facility] Stop: 12/15/16 10:31 Last Admin: 11/23/16 10:04 Dose: 200 mls/hr Micafungin Sodium 100 mg/ (Sodium Chloride) 100 mls @ 100 mls/hr IV DAILY [facility] PRN Reason: Protocol Stop: 12/22/16 10:01 Last Admin: 11/24/16 10:22 Dose: 100 mls/hr Insulin Detemir (Levemir) 8 unit SC BID [facility] Last Admin: 11/24/16 17:27 Dose: 8 unit Insulin Human Lispro (Humalog Med) 0 units SC ACHS [facility] PRN Reason: Protocol Last Admin: 11/25/16 08:04 Dose: Not Given Ondansetron HCl (Zofran Inj) 4 mg IVP Q6H PRN PRN Reason: Nausea/Vomiting Pantoprazole Sodium (Protonix Ec Tab) 40 mg PO DAILY [facility] Last Admin: 11/24/16 10:32 Dose: 40 mg Sodium Bicarbonate (Sodium Bicarbonate Tab) 3,900 mg PO QID [facility] Last Admin: 11/18/16 17:39 Dose: 3,900 mg - Labs Labs: 11/25/16 07:36 11/25/16 07:36 PT 13.2 Seconds (9.9-11.8) H 11/11/16 05:40 INR 1.22 (0.93-1.08) H 11/11/16 05:40 APTT 32.0 Seconds (23.7-30.8) H 11/11/16 05:40 Attending/Attestation - Attestation I have personally seen and examined this patient.: Yes I have fully participated in the care of the patient.: Yes I have reviewed all pertinent clinical information, including history, physical exam and plan: Yes
[2016-11-25 11:33] VITALS: RESP 20
[2016-11-25] MEDS: Insulin Detemir 100 units/ml Vial (Levemir) SC SCH ×2 (12:24→17:20)
--- NOTE | 2016-11-25 12:30 | CP.PCM.PN ---
<Ata Ackerman - Last Filed: 11/25/16 12:18> Subjective - Date & Time of Evaluation Date of Evaluation: 11/25/16 Time of Evaluation: 09:45 - Subjective Subjective: Subjective: Patient seen and examined at bedside. Resting comfortably in bed. Elevated BP noted overnight. Offers no new complaints. Denies f/c/cp/sob/abdominal pain/n/v/ d/c/urinary sxs. Physical Examination: - Constitutional Appears: NAD - Head Exam Head Exam: ATRAUMATIC, NORMAL INSPECTION, NORMOCEPHALIC - Eye Exam Eye Exam: EOMI, Normal appearance, PERRL Pupil Exam: NORMAL ACCOMODATION, PERRL - ENT Exam ENT Exam: Mucous Membranes Moist, Normal Exam - Respiratory Exam Respiratory Exam: Clear to Auscultation Bilateral, NORMAL BREATHING PATTERN - Cardiovascular Exam Cardiovascular Exam: REGULAR RHYTHM, +S1, +S2 - GI/Abdominal Exam GI & Abdominal Exam: Normal Bowel Sounds, Soft. absent: Tenderness - Extremities Exam Extremities exam: left foot bandaged - Back Exam Back exam: CVA tenderness (L), CVA tenderness (R) - Neurological Exam Neurological exam: Patient is awake, alert, responds to verbal stimuli, answers questions appropriately, follows commands, and moves extremities past midline - Psychiatric Exam Psychiatric exam: Normal Affect, Normal Mood Assessment and Plan: Worsening CKD - Cr increased HD today, Dr. Preston recs- renal biopsy completed showing MRSA and yeast, HD on MWF - c/w Diflucan and daptomycin as per ID - long-term dialysis will be required, patient received tunneled catheter placement for longterm dialysis - IV contrast CT reviewed- evidence of multiple renal abscesses- Dr. Handy IR guided aspiration of 5 cc of pus from abscess in right kidney and cultures sent - shows miky ciferri- awaiting ID recommendations - NAGMA noted- nephro recs- continue sodium bicarbonate tabs Septic Shock - Resolved - Repeat blood, urine, and stool cultures negative at this time - ID recommends continuing abx- continue daptomycin and antifungal flucanazole - L foot wound cx growing MRSA and corynebacterium LLE Osteomyelitis - s/p I&D - Will require 6 weeks of abx as per ID, will await recs - MRI L foot showed osteomyelitis of L calcaneus and diffuse plantar proximal aspect of L foot - wound care per podiatry- wound vac will be removed and the patient can follow with wound care when discharged. will continue follow while inpatient. - L Foot cx growing MRSA and corynbacterium - WBC downtrending Anemia likely 2/2 chronic dz - s/p 7u total pRBC transfused - Hgb trended and stable - Dr. Weaver consulted- appreciate recs- note reviewed, patient does not want her care at this time as patient has Dr. Granados outpatient, as per note the patient claims she already completed a bone marrow biopsy and was recommended to take iron - kappa/lambda are elevated Hx DM - glucose levels in the 100s- monitor closely- advised to continue with recommended diet - c/w levemir to 8 BID - ISS med Cardiomyopathy - ECHO shows EF of 35% - Cardiology consulted, Dr. Ryan- appreciate recommendations PPX - protonix - no scds due to foot infection, no lovenox due to renal function, no heparin due to decreasing H/H Dispo: - awaiting insurance approval Patient case discussed with and plan approved by attending physician, Dr. Parker. Objective - Vital Signs/Intake and Output Vital Signs (last 24 hours): Temp Pulse Resp BP Pulse Ox 99.3 F 96 H 20 154/108 H 99 11/25/16 06:00 11/25/16 06:00 11/25/16 06:00 11/25/16 06:00 11/25/16 06:00 Intake and Output: 11/25/16 11/25/16 06:59 18:59 Intake Total 1280 Output Total 1000 Balance 280 - Medications Medications: Current Medications Acetaminophen (Tylenol 325mg Tab) 650 mg PO Q4 PRN PRN Reason: Pain, Mild (1-3) Last Admin: 11/22/16 17:18 Dose: 650 mg Artificial Tears (Artificial Tears) 0.2 ml OU DAILY PRN PRN Reason: Dry skin Last Admin: 11/07/16 10:25 Dose: 2 drop Benzocaine/Menthol (Cepacol Sore Throat) 1 trent MT BID PRN PRN Reason: Sore Throat Last Admin: 11/22/16 21:53 Dose: 1 trent Cadexomer Iodine (Iodosorb) 0 gm TOP DAILY [facility] Last Admin: 11/24/16 10:41 Dose: 1 gm Carvedilol (Coreg) 6.25 mg PO BID [facility] Last Admin: 11/24/16 17:28 Dose: 6.25 mg Collagenase (Santyl) 0 gm TOP DAILY [facility] Last Admin: 11/24/16 12:24 Dose: 1 applic Furosemide (Lasix) 80 mg IVP Q12 [facility] Last Admin: 11/24/16 21:49 Dose: Not Given Daptomycin 420 mg/ Sodium (Chloride) 100 mls @ 200 mls/hr IV QOTHERDAY [facility] Stop: 12/15/16 10:31 Last Admin: 11/23/16 10:04 Dose: 200 mls/hr Micafungin Sodium 100 mg/ (Sodium Chloride) 100 mls @ 100 mls/hr IV DAILY [facility] PRN Reason: Protocol Stop: 12/22/16 10:01 Last Admin: 11/24/16 10:22 Dose: 100 mls/hr Insulin Detemir (Levemir) 8 unit SC BID [facility] Last Admin: 11/24/16 17:27 Dose: 8 unit Insulin Human Lispro (Humalog Med) 0 units SC ACHS [facility] PRN Reason: Protocol Last Admin: 11/25/16 08:04 Dose: Not Given Ondansetron HCl (Zofran Inj) 4 mg IVP Q6H PRN PRN Reason: Nausea/Vomiting Pantoprazole Sodium (Protonix Ec Tab) 40 mg PO DAILY [facility] Last Admin: 11/24/16 10:32 Dose: 40 mg Sodium Bicarbonate (Sodium Bicarbonate Tab) 3,900 mg PO QID [facility] Last Admin: 11/18/16 17:39 Dose: 3,900 mg - Labs Labs: 11/25/16 07:36 11/25/16 07:36 PT 13.2 Seconds (9.9-11.8) H 11/11/16 05:40 INR 1.22 (0.93-1.08) H 11/11/16 05:40 APTT 32.0 Seconds (23.7-30.8) H 11/11/16 05:40 <Laquita Talley - Last Filed: 11/25/16 18:25> Objective - Vital Signs/Intake and Output Vital Signs (last 24 hours): Temp Pulse Resp BP Pulse Ox 99.3 F 96 H 20 154/108 H 99 11/25/16 06:00 11/25/16 06:00 11/25/16 06:00 11/25/16 06:00 11/25/16 06:00 Intake and Output: 11/25/16 11/25/16 06:59 18:59 Intake Total 1280 240 Output Total 1000 200 Balance 280 40 - Medications Medications: Current Medications Acetaminophen (Tylenol 325mg Tab) 650 mg PO Q4 PRN PRN Reason: Pain, Mild (1-3) Last Admin: 11/22/16 17:18 Dose: 650 mg Artificial Tears (Artificial Tears) 0.2 ml OU DAILY PRN PRN Reason: Dry skin Last Admin: 11/07/16 10:25 Dose: 2 drop Benzocaine/Menthol (Cepacol Sore Throat) 1 trent MT BID PRN PRN Reason: Sore Throat Last Admin: 11/22/16 21:53 Dose: 1 trent Cadexomer Iodine (Iodosorb) 0 gm TOP DAILY [facility] Last Admin: 11/25/16 15:08 Dose: 1 gm Carvedilol (Coreg) 6.25 mg PO BID [facility] Last Admin: 11/25/16 17:20 Dose: 6.25 mg Collagenase (Santyl) 0 gm TOP DAILY [facility] Last Admin: 11/25/16 15:07 Dose: 1 applic Furosemide (Lasix) 80 mg IVP Q12 [facility] Last Admin: 11/24/16 21:49 Dose: Not Given Daptomycin 420 mg/ Sodium (Chloride) 100 mls @ 200 mls/hr IV QOTHERDAY [facility] Stop: 12/15/16 10:31 Last Admin: 11/25/16 15:07 Dose: 200 mls/hr Micafungin Sodium 100 mg/ (Sodium Chloride) 100 mls @ 100 mls/hr IV DAILY [facility] PRN Reason: Protocol Stop: 12/22/16 10:01 Last Admin: 11/25/16 15:07 Dose: 100 mls/hr Insulin Detemir (Levemir) 8 unit SC BID [facility] Last Admin: 11/25/16 17:20 Dose: 8 unit Insulin Human Lispro (Humalog Med) 0 units SC ACHS [facility] PRN Reason: Protocol Last Admin: 11/25/16 16:57 Dose: Not Given Ondansetron HCl (Zofran Inj) 4 mg IVP Q6H PRN PRN Reason: Nausea/Vomiting Pantoprazole Sodium (Protonix Ec Tab) 40 mg PO DAILY [facility] Last Admin: 11/25/16 13:56 Dose: Not Given Sodium Bicarbonate (Sodium Bicarbonate Tab) 3,900 mg PO QID [facility] Last Admin: 11/18/16 17:39 Dose: 3,900 mg - Labs Labs: 11/25/16 07:36 11/25/16 07:36 PT 13.2 Seconds (9.9-11.8) H 11/11/16 05:40 INR 1.22 (0.93-1.08) H 11/11/16 05:40 APTT 32.0 Seconds (23.7-30.8) H 11/11/16 05:40 Attending/Attestation - Attestation I have personally seen and examined this patient.: Yes I have fully participated in the care of the patient.: Yes I have reviewed all pertinent clinical information, including history, physical exam and plan: Yes Notes (Text): 11/25/16 18:22 Attending note; Patient seen and examined with resident. Patient is a 36 year old female with history of IDDM, HTN, dyslipidemia, wheel chair bound, 2 amputated toes of left leg and chronic LE ulcer who presented with severe sepsis secondary to acute pyelonephritis, osteomyelitis of L foot, Acute on chronic kidney disease and anemia. Continue daptomycin for MRSA of left foot and MIcafungin for miky ciferrii renal abscess. She needs to complete 4 to 6 weeks of IV daptomycin. Patient underwent renal biopsy which showed pyelo. CT scan w contrast revealed multiple renal abscesses. Patient had IR guided needle aspiration and cultures is growing miky ciferrii. New tunneled catheter is in place. Case discussed with correctional case manager in detail. Needs outpatient hemodialysis unit placement. The patient does not have any insurance active at this point. Long-term prognosis is poor secondary to multiple medical problems and noncompliance with follow-up. Patient reports that she wants to go home. She was explained that outpatient HD has not been set up yet due to lack of active insurance. Upon discharge patient will follow up with .
[2016-11-25] MEDS: Pantoprazole 40 mg EC Tab PO SCH (13:56)
--- NOTE | 2016-11-25 14:47 | CP.PCM.PN ---
Subjective - Date & Time of Evaluation Date of Evaluation: 11/25/16 Time of Evaluation: 13:00 - Subjective Subjective: No fevers, not in distress. Objective - Vital Signs/Intake and Output Vital Signs (last 24 hours): Temp Pulse Resp BP Pulse Ox 97.8 F 94 H 98 H 155/104 H 19 L 11/24/16 06:00 11/24/16 06:00 11/24/16 06:00 11/24/16 21:49 11/24/16 06:00 Intake and Output: 11/24/16 11/25/16 18:59 06:59 Intake Total 700 240 Output Total 200 300 Balance 500 -60 - Medications Medications: Current Medications Acetaminophen (Tylenol 325mg Tab) 650 mg PO Q4 PRN PRN Reason: Pain, Mild (1-3) Last Admin: 11/22/16 17:18 Dose: 650 mg Artificial Tears (Artificial Tears) 0.2 ml OU DAILY PRN PRN Reason: Dry skin Last Admin: 11/07/16 10:25 Dose: 2 drop Benzocaine/Menthol (Cepacol Sore Throat) 1 trent MT BID PRN PRN Reason: Sore Throat Last Admin: 11/22/16 21:53 Dose: 1 trent Cadexomer Iodine (Iodosorb) 0 gm TOP DAILY [facility] Last Admin: 11/24/16 10:41 Dose: 1 gm Carvedilol (Coreg) 6.25 mg PO BID [facility] Last Admin: 11/24/16 17:28 Dose: 6.25 mg Collagenase (Santyl) 0 gm TOP DAILY [facility] Last Admin: 11/24/16 12:24 Dose: 1 applic Furosemide (Lasix) 80 mg IVP Q12 [facility] Last Admin: 11/24/16 21:49 Dose: Not Given Daptomycin 420 mg/ Sodium (Chloride) 100 mls @ 200 mls/hr IV QOTHERDAY [facility] Stop: 12/15/16 10:31 Last Admin: 11/23/16 10:04 Dose: 200 mls/hr Micafungin Sodium 100 mg/ (Sodium Chloride) 100 mls @ 100 mls/hr IV DAILY [facility] PRN Reason: Protocol Stop: 12/22/16 10:01 Last Admin: 11/24/16 10:22 Dose: 100 mls/hr Insulin Detemir (Levemir) 8 unit SC BID [facility] Last Admin: 11/24/16 17:27 Dose: 8 unit Insulin Human Lispro (Humalog Med) 0 units SC ACHS [facility] PRN Reason: Protocol Last Admin: 11/24/16 21:30 Dose: Not Given Ondansetron HCl (Zofran Inj) 4 mg IVP Q6H PRN PRN Reason: Nausea/Vomiting Pantoprazole Sodium (Protonix Ec Tab) 40 mg PO DAILY [facility] Last Admin: 11/24/16 10:32 Dose: 40 mg Sodium Bicarbonate (Sodium Bicarbonate Tab) 3,900 mg PO QID [facility] Last Admin: 11/18/16 17:39 Dose: 3,900 mg - Labs Labs: 11/24/16 06:30 11/24/16 06:30 PT 13.2 Seconds (9.9-11.8) H 11/11/16 05:40 INR 1.22 (0.93-1.08) H 11/11/16 05:40 APTT 32.0 Seconds (23.7-30.8) H 11/11/16 05:40 - Constitutional Appears: Chronically Ill - Head Exam Head Exam: NORMAL INSPECTION - Respiratory Exam Respiratory Exam: Decreased Breath Sounds - Cardiovascular Exam Cardiovascular Exam: +S1, +S2 - GI/Abdominal Exam GI & Abdominal Exam: Soft. absent: Tenderness - Extremities Exam Additional comments: left leg with dressings in place Assessment and Plan - Assessment and Plan (Free Text) Plan: Assessment Severe sepsis with acute renal failure due to acute pyelonephritis, with MRSA in the urine and now with perinephric abscess S/P IR-guided drainage (growing Chelsey ciferii) as well as left foot wound infection/abscess with MRSA, MRI showing osteomyelitis, S/P surgery POD #22 DM with diabetic neuropathy HTN history of right DVT bilateral foot ulcers Plan on renally-adjusted IV Daptomycin (day 22); repeat blood cx and urine negative are negative; will need 4-6 weeks of antibiotics 2D echo does not show vegetations will need weekly ESR, CRP, CBC, CMP, CPK levels while on antibiotics kidney biopsy is showing probable pyelonephritis / neutrophilic infiltration - perinephric abscess has been drained - follow up sensitivities of the C. ciferii from the abscess (but it in some case reports it can be Fluconazole resistant) overall prognosis is poor will monitor clinically discussed with Dr. Preston
[2016-11-25] MEDS: Collagenase 250 Units/gm Ointment(30 gm) TOP SCH (15:07)
[2016-11-25] MEDS: Micafungin 100 MG in Sodium Chloride 0.9% 100 ML IV SCH (15:07)
[2016-11-25] MEDS: CADEXOMER IODINE 0.9% GEL 10G TOP SCH (15:08)
--- NOTE | 2016-11-25 19:41 | CP.PCM.PN ---
Subjective - Date & Time of Evaluation Date of Evaluation: 11/25/16 Time of Evaluation: 11:00 - Subjective Subjective: 36 yo F w/ pmh of dm, necrotic L lower ext (previously recommended for amputation but patient refused), CKD and being bedbound since at least several months, admitted with L foot osteomyelitis and acute renal failure secondary to pyelonephritis; Patient reports feeling well; again trying to give her input for therapy; getting annoyed when being told that HD treatment cannot be shortened; Objective - Vital Signs/Intake and Output Vital Signs (last 24 hours): Temp Pulse Resp BP Pulse Ox 99.3 F 96 H 20 154/108 H 99 11/25/16 06:00 11/25/16 06:00 11/25/16 06:00 11/25/16 06:00 11/25/16 06:00 Intake and Output: 11/25/16 11/26/16 18:59 06:59 Intake Total 240 Output Total 200 Balance 40 - Medications Medications: Current Medications Acetaminophen (Tylenol 325mg Tab) 650 mg PO Q4 PRN PRN Reason: Pain, Mild (1-3) Last Admin: 11/22/16 17:18 Dose: 650 mg Artificial Tears (Artificial Tears) 0.2 ml OU DAILY PRN PRN Reason: Dry skin Last Admin: 11/07/16 10:25 Dose: 2 drop Benzocaine/Menthol (Cepacol Sore Throat) 1 trent MT BID PRN PRN Reason: Sore Throat Last Admin: 11/22/16 21:53 Dose: 1 trent Cadexomer Iodine (Iodosorb) 0 gm TOP DAILY [facility] Last Admin: 11/25/16 15:08 Dose: 1 gm Carvedilol (Coreg) 6.25 mg PO BID [facility] Last Admin: 11/25/16 17:20 Dose: 6.25 mg Collagenase (Santyl) 0 gm TOP DAILY [facility] Last Admin: 11/25/16 15:07 Dose: 1 applic Furosemide (Lasix) 80 mg IVP Q12 [facility] Last Admin: 11/24/16 21:49 Dose: Not Given Daptomycin 420 mg/ Sodium (Chloride) 100 mls @ 200 mls/hr IV QOTHERDAY [facility] Stop: 12/15/16 10:31 Last Admin: 11/25/16 15:07 Dose: 200 mls/hr Micafungin Sodium 100 mg/ (Sodium Chloride) 100 mls @ 100 mls/hr IV DAILY [facility] PRN Reason: Protocol Stop: 12/22/16 10:01 Last Admin: 11/25/16 15:07 Dose: 100 mls/hr Insulin Detemir (Levemir) 8 unit SC BID [facility] Last Admin: 11/25/16 17:20 Dose: 8 unit Insulin Human Lispro (Humalog Med) 0 units SC ACHS [facility] PRN Reason: Protocol Last Admin: 11/25/16 16:57 Dose: Not Given Ondansetron HCl (Zofran Inj) 4 mg IVP Q6H PRN PRN Reason: Nausea/Vomiting Pantoprazole Sodium (Protonix Ec Tab) 40 mg PO DAILY [facility] Last Admin: 11/25/16 13:56 Dose: Not Given Sodium Bicarbonate (Sodium Bicarbonate Tab) 3,900 mg PO QID [facility] Last Admin: 11/18/16 17:39 Dose: 3,900 mg - Labs Labs: 11/25/16 07:36 11/25/16 07:36 PT 13.2 Seconds (9.9-11.8) H 11/11/16 05:40 INR 1.22 (0.93-1.08) H 11/11/16 05:40 APTT 32.0 Seconds (23.7-30.8) H 11/11/16 05:40 - Constitutional Appears: Non-toxic, No Acute Distress - Head Exam Head Exam: NORMAL INSPECTION - Respiratory Exam Respiratory Exam: absent: Respiratory Distress - Additional Findings Additional findings: Exam limited to observation as patient refused more detailed exam; Assessment and Plan (1) Acute renal failure Assessment & Plan: EMMETT on CKD; HD dependent since 10/27/16; HD was held on 2 separate occasions in an attempt to see how patient can fare without it, eventually restarted due to severely low CrCl with volume excess and metabolic acidosis; EMMETT due bilateral pyelonephritis (biopsied after being on abx for ~3 weeks without improvement in renal function and with persistent gross pyuria), s/p aspiration of one of the larger abcesses, growing Chelsey sp, awaiting sensitivies; anti-fungal agent changed to micafungin over the weekend; -continue HD qMWF -abx per ID -needs outpatient HD placement as acute renal failure (not yet ESRD); -lasix 80 mg PO bid on non-HD days; Status: Acute (2) CKD (chronic kidney disease) Assessment & Plan: 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; 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25 mg bid, should increase dose for better BP control; Status: Acute
[2016-11-25 22:02] LABS: CALCIUM 7.6 mg/dL (8.6-10.2)
[2016-11-26 07:37] LABS: BASO # 0.05 K/mm3 (0.0-2.0); BASO % 0.4 % (0.0-3.0); EOS # 0.2 (0.0-0.7); EOS % 1.8 % (1.5-5.0); GRAN # 10.56 (1.4-6.5); GRAN % 80.3 % (50.0-68.0); HEMATOCRIT 29.1 % (36.0-48.0); LYMPH # 1.1 (1.2-3.4); LYMPH % 8.4 % (22.0-35.0); MEAN CELL VOLUME 89.8 fl (80.0-105.0); MEAN CORPUSCULAR HEMOGLOBIN 28.1 pg (25.0-35.0); MEAN CORPUSCULAR HGB CONC 31.3 g/dl (31.0-37.0); MEAN PLATELET VOLUME 9.4 fl (7.0-11.0); MONO # 1.2 (0.1-0.6); MONO % 9.1 % (1.0-6.0); RED CELL DISTRIBUTION WIDTH 15.7 % (11.5-14.5); WHITE BLOOD COUNT 13.1 10^3/ul (4.5-11.0)
[2016-11-26 07:47] LABS: ALB/GLOB RATIO 0.6 (1.1-1.8); BILIRUBIN,TOTAL 0.5 mg/dL (0.2-1.3); CALCIUM 7.9 mg/dL (8.4-10.5); TOTAL PROTEIN 8.2 g/dL (5.8-8.3)
[2016-11-26] MEDS: Insulin Lispro (humaLOG) MEDIUM Coverage SC SCH ×4 (08:24→21:46)
[2016-11-26] MEDS: Micafungin 100 MG in Sodium Chloride 0.9% 100 ML IV SCH (10:35)
[2016-11-26] MEDS: Insulin Detemir 100 units/ml Vial (Levemir) SC SCH (10:35)
[2016-11-26] MEDS: Pantoprazole 40 mg EC Tab PO SCH (10:36)
[2016-11-26] MEDS: Collagenase 250 Units/gm Ointment(30 gm) TOP SCH ×2 (10:39→10:40)
--- NOTE | 2016-11-26 11:51 | CP.PCM.PN ---
<Ata Ackerman - Last Filed: 11/26/16 11:42> Subjective - Date & Time of Evaluation Date of Evaluation: 11/26/16 Time of Evaluation: 08:00 - Subjective Subjective: Subjective: Patient seen and examined at bedside. Resting comfortably in bed. States she is doing well. No foot pain. Wants to make HD shorter length in time. Offers no new complaints. Denies f/c/cp/sob/abdominal pain/n/v/d/c/urinary sxs. Physical Examination: - Constitutional Appears: NAD - Head Exam Head Exam: ATRAUMATIC, NORMAL INSPECTION, NORMOCEPHALIC - Eye Exam Eye Exam: EOMI, Normal appearance, PERRL Pupil Exam: NORMAL ACCOMODATION, PERRL - ENT Exam ENT Exam: Mucous Membranes Moist, Normal Exam - Respiratory Exam Respiratory Exam: Clear to Auscultation Bilateral, NORMAL BREATHING PATTERN - Cardiovascular Exam Cardiovascular Exam: REGULAR RHYTHM, +S1, +S2 - GI/Abdominal Exam GI & Abdominal Exam: Normal Bowel Sounds, Soft. absent: Tenderness - Extremities Exam Extremities exam: left foot bandaged - Back Exam Back exam: CVA tenderness (L), CVA tenderness (R) - Neurological Exam Neurological exam: Patient is awake, alert, responds to verbal stimuli, answers questions appropriately, follows commands, and moves extremities past midline - Psychiatric Exam Psychiatric exam: Normal Affect, Normal Mood Assessment and Plan: Worsening CKD - Cr decreased HD yday, Dr. 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 Handy IR guided aspiration of 5 cc of pus from abscess in right kidney and cultures sent - shows miky ciferri- awaiting further ID recommendations, awaiting sensitivies Septic Shock - Resolved - Repeat blood, urine, and stool cultures negative at this time - ID recommends continuing abx- continue daptomycin and antifungal flucanazole - L foot wound cx growing MRSA and corynebacterium LLE Osteomyelitis - s/p I&D - Will require 6 weeks of abx as per ID, will await recs - MRI L foot showed osteomyelitis of L calcaneus and diffuse plantar proximal aspect of L foot - wound care per podiatry- wound vac will be removed and the patient can follow with wound care when discharged. will continue follow while inpatient. - L Foot cx growing MRSA and corynbacterium - WBC downtrending Anemia likely 2/2 chronic dz - s/p 7u total pRBC transfused - Hgb trended and stable - Dr. Weaver consulted- appreciate recs- note reviewed, patient does not want her care at this time as patient has Dr. Granados outpatient, as per note the patient claims she already completed a bone marrow biopsy and was recommended to take iron - kappa/lambda are elevated - aransep given during HD yesterday Hx DM - glucose levels in the 350s- monitor closely- advised to continue with recommended diet - c/w levemir to 8 BID - ISS med Cardiomyopathy - ECHO shows EF of 35% - Cardiology consulted, Dr. Ryan- appreciate recommendations PPX - protonix - no scds due to foot infection, no lovenox due to renal function, no heparin due to decreasing H/H Dispo: - awaiting insurance approval Patient case discussed with and plan approved by attending physician, Dr. Talley. Objective - Vital Signs/Intake and Output Vital Signs (last 24 hours): Temp Pulse Resp BP Pulse Ox 99.5 F 90 20 138/90 96 11/26/16 08:13 11/26/16 10:35 11/26/16 08:13 11/26/16 10:35 11/26/16 08:13 Intake and Output: 11/26/16 11/26/16 06:59 18:59 Intake Total 120 Output Total 400 Balance -280 - Medications Medications: Current Medications Acetaminophen (Tylenol 325mg Tab) 650 mg PO Q4 PRN PRN Reason: Pain, Mild (1-3) Last Admin: 11/22/16 17:18 Dose: 650 mg Artificial Tears (Artificial Tears) 0.2 ml OU DAILY PRN PRN Reason: Dry skin Last Admin: 11/07/16 10:25 Dose: 2 drop Benzocaine/Menthol (Cepacol Sore Throat) 1 trent MT BID PRN PRN Reason: Sore Throat Last Admin: 11/22/16 21:53 Dose: 1 trent Cadexomer Iodine (Iodosorb) 0 gm TOP DAILY [facility] Last Admin: 11/25/16 15:08 Dose: 1 gm Carvedilol (Coreg) 6.25 mg PO BID [facility] Last Admin: 11/26/16 10:35 Dose: 6.25 mg Collagenase (Santyl) 0 gm TOP DAILY [facility] Last Admin: 11/25/16 15:07 Dose: 1 applic Furosemide (Lasix) 80 mg PO BID [facility] Heparin Sodium (Porcine) (Heparin) 2,200 units IVP MOWEFR [facility] PRN Reason: Protocol Last Admin: 11/25/16 14:25 Dose: 2,200 units Heparin Sodium (Porcine) (Heparin) 2,400 units IVP MOWEFR [facility] PRN Reason: Protocol Last Admin: 11/25/16 14:25 Dose: 2,400 units Daptomycin 420 mg/ Sodium (Chloride) 100 mls @ 200 mls/hr IV QOTHERDAY [facility] Stop: 12/15/16 10:31 Last Admin: 11/25/16 15:07 Dose: 200 mls/hr Micafungin Sodium 100 mg/ (Sodium Chloride) 100 mls @ 100 mls/hr IV DAILY [facility] PRN Reason: Protocol Stop: 12/22/16 10:01 Last Admin: 11/26/16 10:35 Dose: 100 mls/hr Insulin Detemir (Levemir) 8 unit SC BID [facility] Last Admin: 11/26/16 10:35 Dose: 8 unit Insulin Human Lispro (Humalog Med) 0 units SC ACHS [facility] PRN Reason: Protocol Last Admin: 11/26/16 08:24 Dose: 5 units Lactic Acid (Lac-Hydrin 12% Cream (140 G)) 0 ea TOP DAILY [facility] Ondansetron HCl (Zofran Inj) 4 mg IVP Q6H PRN PRN Reason: Nausea/Vomiting Pantoprazole Sodium (Protonix Ec Tab) 40 mg PO DAILY [facility] Last Admin: 11/26/16 10:36 Dose: 40 mg - Labs Labs: 11/26/16 07:27 11/26/16 07:27 PT 13.2 Seconds (9.9-11.8) H 11/11/16 05:40 INR 1.22 (0.93-1.08) H 11/11/16 05:40 APTT 32.0 Seconds (23.7-30.8) H 11/11/16 05:40 <Rangasamy,Ajantha - Last Filed: 11/26/16 17:19> Objective - Vital Signs/Intake and Output Vital Signs (last 24 hours): Temp Pulse Resp BP Pulse Ox 99.5 F 90 20 138/90 96 11/26/16 08:13 11/26/16 10:35 11/26/16 08:13 11/26/16 10:35 11/26/16 08:13 Intake and Output: 11/26/16 11/26/16 06:59 18:59 Intake Total 120 Output Total 400 Balance -280 - Medications Medications: Current Medications Acetaminophen (Tylenol 325mg Tab) 650 mg PO Q4 PRN PRN Reason: Pain, Mild (1-3) Last Admin: 11/22/16 17:18 Dose: 650 mg Artificial Tears (Artificial Tears) 0.2 ml OU DAILY PRN PRN Reason: Dry skin Last Admin: 11/07/16 10:25 Dose: 2 drop Benzocaine/Menthol (Cepacol Sore Throat) 1 trent MT BID PRN PRN Reason: Sore Throat Last Admin: 11/22/16 21:53 Dose: 1 trent Cadexomer Iodine (Iodosorb) 0 gm TOP DAILY [facility] Last Admin: 11/25/16 15:08 Dose: 1 gm Carvedilol (Coreg) 6.25 mg PO BID [facility] Last Admin: 11/26/16 10:35 Dose: 6.25 mg Collagenase (Santyl) 0 gm TOP DAILY [facility] Last Admin: 11/25/16 15:07 Dose: 1 applic Furosemide (Lasix) 80 mg PO BID [facility] Heparin Sodium (Porcine) (Heparin) 2,200 units IVP MOWEFR [facility] PRN Reason: Protocol Last Admin: 11/25/16 14:25 Dose: 2,200 units Heparin Sodium (Porcine) (Heparin) 2,400 units IVP MOWEFR [facility] PRN Reason: Protocol Last Admin: 11/25/16 14:25 Dose: 2,400 units Daptomycin 420 mg/ Sodium (Chloride) 100 mls @ 200 mls/hr IV QOTHERDAY [facility] Stop: 12/15/16 10:31 Last Admin: 11/25/16 15:07 Dose: 200 mls/hr Micafungin Sodium 100 mg/ (Sodium Chloride) 100 mls @ 100 mls/hr IV DAILY [facility] PRN Reason: Protocol Stop: 12/22/16 10:01 Last Admin: 11/26/16 10:35 Dose: 100 mls/hr Insulin Detemir (Levemir) 8 unit SC BID [facility] Last Admin: 11/26/16 10:35 Dose: 8 unit Insulin Human Lispro (Humalog Med) 0 units SC ACHS [facility] PRN Reason: Protocol Last Admin: 11/26/16 16:49 Dose: Not Given Lactic Acid (Lac-Hydrin 12% Cream (140 G)) 0 ea TOP DAILY [facility] Ondansetron HCl (Zofran Inj) 4 mg IVP Q6H PRN PRN Reason: Nausea/Vomiting Pantoprazole Sodium (Protonix Ec Tab) 40 mg PO DAILY [facility] Last Admin: 11/26/16 10:36 Dose: 40 mg - Labs Labs: 11/26/16 07:27 11/26/16 07:27 PT 13.2 Seconds (9.9-11.8) H 11/11/16 05:40 INR 1.22 (0.93-1.08) H 11/11/16 05:40 APTT 32.0 Seconds (23.7-30.8) H 11/11/16 05:40 Attending/Attestation - Attestation I have personally seen and examined this patient.: Yes I have fully participated in the care of the patient.: Yes I have reviewed all pertinent clinical information, including history, physical exam and plan: Yes Notes (Text): 11/26/16 17:17 Attending note; Patient seen and examined with resident. Patient is a 36 year old female with history of IDDM, HTN, dyslipidemia, wheel chair bound, 2 amputated toes of left leg and chronic LE ulcer who presented with severe sepsis secondary to acute pyelonephritis, osteomyelitis of L foot, Acute on chronic kidney disease and anemia. Continue daptomycin for MRSA of left foot and MIcafungin for miky ciferrii renal abscess. She needs to complete 4 to 6 weeks of IV daptomycin. New tunneled catheter is in place. Case discussed with complex case manager in detail. Needs outpatient hemodialysis unit placement. The patient does not have any insurance active at this point. Long-term prognosis is poor secondary to multiple medical problems and noncompliance with follow-up. Patient reports that she wants to go home. She was explained that outpatient HD has not been set up yet due to lack of active insurance. Patient also needs IV anti-biotics and wound care. vp digital marketing social media and crm evaluation appreciated. Upon discharge patient will follow up with . 11/26/16 17:18
--- NOTE | 2016-11-26 12:51 | CP.PCM.PN ---
<ClaudiaJose Ramon dubose - Last Filed: 11/26/16 12:47> Subjective - Date & Time of Evaluation Date of Evaluation: 11/26/16 Time of Evaluation: 12:48 - Subjective Subjective: 36 year old female seen and evaluated at bedside POD#26 left foot I&D (DOS: 10/31). Patient is AAOx3 and NAD, resting comfortably in her bed. Patient denies of any acute overnight events. Patient denies any pain to her lower extremity. Patient denies any F/N/V/C/SOB/Chest pain. Patient denies of any other pedal complains at this time. Objective - Vital Signs/Intake and Output Vital Signs (last 24 hours): Temp Pulse Resp BP Pulse Ox 99.5 F 90 20 138/90 96 11/26/16 08:13 11/26/16 10:35 11/26/16 08:13 11/26/16 10:35 11/26/16 08:13 Intake and Output: 11/26/16 11/26/16 06:59 18:59 Intake Total 120 Output Total 400 Balance -280 - Medications Medications: Current Medications Acetaminophen (Tylenol 325mg Tab) 650 mg PO Q4 PRN PRN Reason: Pain, Mild (1-3) Last Admin: 11/22/16 17:18 Dose: 650 mg Artificial Tears (Artificial Tears) 0.2 ml OU DAILY PRN PRN Reason: Dry skin Last Admin: 11/07/16 10:25 Dose: 2 drop Benzocaine/Menthol (Cepacol Sore Throat) 1 trent MT BID PRN PRN Reason: Sore Throat Last Admin: 11/22/16 21:53 Dose: 1 trent Cadexomer Iodine (Iodosorb) 0 gm TOP DAILY [facility] Last Admin: 11/25/16 15:08 Dose: 1 gm Carvedilol (Coreg) 6.25 mg PO BID [facility] Last Admin: 11/26/16 10:35 Dose: 6.25 mg Collagenase (Santyl) 0 gm TOP DAILY [facility] Last Admin: 11/25/16 15:07 Dose: 1 applic Furosemide (Lasix) 80 mg PO BID [facility] Heparin Sodium (Porcine) (Heparin) 2,200 units IVP MOWEFR [facility] PRN Reason: Protocol Last Admin: 11/25/16 14:25 Dose: 2,200 units Heparin Sodium (Porcine) (Heparin) 2,400 units IVP MOWEFR [facility] PRN Reason: Protocol Last Admin: 11/25/16 14:25 Dose: 2,400 units Daptomycin 420 mg/ Sodium (Chloride) 100 mls @ 200 mls/hr IV QOTHERDAY [facility] Stop: 12/15/16 10:31 Last Admin: 11/25/16 15:07 Dose: 200 mls/hr Micafungin Sodium 100 mg/ (Sodium Chloride) 100 mls @ 100 mls/hr IV DAILY [facility] PRN Reason: Protocol Stop: 12/22/16 10:01 Last Admin: 11/26/16 10:35 Dose: 100 mls/hr Insulin Detemir (Levemir) 8 unit SC BID [facility] Last Admin: 11/26/16 10:35 Dose: 8 unit Insulin Human Lispro (Humalog Med) 0 units SC ACHS [facility] PRN Reason: Protocol Last Admin: 11/26/16 12:19 Dose: Not Given Lactic Acid (Lac-Hydrin 12% Cream (140 G)) 0 ea TOP DAILY [facility] Ondansetron HCl (Zofran Inj) 4 mg IVP Q6H PRN PRN Reason: Nausea/Vomiting Pantoprazole Sodium (Protonix Ec Tab) 40 mg PO DAILY [facility] Last Admin: 11/26/16 10:36 Dose: 40 mg - Labs Labs: 11/26/16 07:27 11/26/16 07:27 PT 13.2 Seconds (9.9-11.8) H 11/11/16 05:40 INR 1.22 (0.93-1.08) H 11/11/16 05:40 APTT 32.0 Seconds (23.7-30.8) H 11/11/16 05:40 - Constitutional Appears: Well, Non-toxic, No Acute Distress - Extremities Exam Additional comments: Left lower extremity focused examination. Dressings are clean, dry, and intact with no strikethrough noted. VASC: DP and PT pulses palpable 2/4 b/l. TG WNL b/l. No edema noted to left foot. CFT < 3 seconds to all digits b/l. NEURO: Gross sensation absent bilaterally. DERM: LLE = One uniform full thickness ulceration noted to left medial heel measuring approximately 3.6 x 2.8 x 1.1 cm with wound base appearing as a granular ring and fibrotic core no active drainage noted. No erythema,no malodor, no acute signs of infection. ORTHO: No pain on palpation noted. - Neurological Exam Neurological Exam: Alert, Awake, Oriented x3 - Psychiatric Exam Psychiatric exam: Normal Affect, Normal Mood Assessment and Plan - Assessment and Plan (Free Text) Assessment: 36 year old female PMHx IDDM, renal failure, sepsis, metabolic acidosis, UTI, CKD, anemia 1) s/p left foot incision and drainage with wound debridement; 2) Stage 1 pressure ulcer right heel Plan: Patient seen and evaluated at bedside Discussed the plan in detail with attending Dr. Craven Chart, vitals, labs reviewed - afebrile, WBC=13.1 Left foot wound culture = MRSA Urine culture - yeast Per ID, continue renally-adjusted Daptomycin; patient will need 6 weeks of abx Wounds cleansed with saline, dressed with Maxorb, gauze, kirlix Patient to wear multipodus boots at all times while in bed to prevent progression of pressure ulcer formation R heel. Patient may WBAT in Darco Heel Wedge to the left and surgical shoe to the right. Darco Heel Wedge must be worn to the left at all times when ambulating Continue Eucerin cream bilateral LE BID C/W physical therapy Prognosis for limb salvage poor At this point, no further debridements are considered for left foot; will be seen in followup Podiatry will continue to follow patient while in house <Logan Craven - Last Filed: 11/27/16 07:27> Objective - Vital Signs/Intake and Output Vital Signs (last 24 hours): Temp Pulse Resp BP Pulse Ox 99.5 F 86 20 137/72 96 11/26/16 08:13 11/26/16 18:34 11/26/16 08:13 11/26/16 18:35 11/26/16 08:13 Intake and Output: 11/27/16 11/27/16 06:59 18:59 Intake Total 1240 Output Total 750 Balance 490 - Medications Medications: Current Medications Acetaminophen (Tylenol 325mg Tab) 650 mg PO Q4 PRN PRN Reason: Pain, Mild (1-3) Last Admin: 11/22/16 17:18 Dose: 650 mg Artificial Tears (Artificial Tears) 0.2 ml OU DAILY PRN PRN Reason: Dry skin Last Admin: 11/07/16 10:25 Dose: 2 drop Benzocaine/Menthol (Cepacol Sore Throat) 1 trent MT BID PRN PRN Reason: Sore Throat Last Admin: 11/22/16 21:53 Dose: 1 trent Cadexomer Iodine (Iodosorb) 0 gm TOP DAILY [facility] Last Admin: 11/25/16 15:08 Dose: 1 gm Carvedilol (Coreg) 6.25 mg PO BID [facility] Last Admin: 11/26/16 18:34 Dose: 6.25 mg Collagenase (Santyl) 0 gm TOP DAILY [facility] Last Admin: 11/26/16 10:40 Dose: 1 applic Furosemide (Lasix) 80 mg PO BID [facility] Last Admin: 11/26/16 18:35 Dose: 80 mg Heparin Sodium (Porcine) (Heparin) 2,200 units IVP MOWEFR [facility] PRN Reason: Protocol Last Admin: 11/25/16 14:25 Dose: 2,200 units Heparin Sodium (Porcine) (Heparin) 2,400 units IVP MOWEFR [facility] PRN Reason: Protocol Last Admin: 11/25/16 14:25 Dose: 2,400 units Daptomycin 420 mg/ Sodium (Chloride) 100 mls @ 200 mls/hr IV QOTHERDAY [facility] Stop: 12/15/16 10:31 Last Admin: 11/25/16 15:07 Dose: 200 mls/hr Micafungin Sodium 100 mg/ (Sodium Chloride) 100 mls @ 100 mls/hr IV DAILY [facility] PRN Reason: Protocol Stop: 12/22/16 10:01 Last Admin: 11/26/16 10:35 Dose: 100 mls/hr Insulin Detemir (Levemir) 8 unit SC BID [facility] Last Admin: 11/26/16 10:35 Dose: 8 unit Insulin Human Lispro (Humalog Med) 0 units SC ACHS [facility] PRN Reason: Protocol Last Admin: 11/26/16 16:49 Dose: Not Given Lactic Acid (Lac-Hydrin 12% Cream (140 G)) 0 ea TOP DAILY [facility] Last Admin: 11/26/16 18:41 Dose: 1 applic Ondansetron HCl (Zofran Inj) 4 mg IVP Q6H PRN PRN Reason: Nausea/Vomiting Pantoprazole Sodium (Protonix Ec Tab) 40 mg PO DAILY [facility] Last Admin: 11/26/16 10:36 Dose: 40 mg - Labs Labs: 11/26/16 07:27 11/26/16 07:27 PT 13.2 Seconds (9.9-11.8) H 11/11/16 05:40 INR 1.22 (0.93-1.08) H 11/11/16 05:40 APTT 32.0 Seconds (23.7-30.8) H 11/11/16 05:40 Attending/Attestation - Attestation I have personally seen and examined this patient.: Yes I have fully participated in the care of the patient.: Yes I have reviewed all pertinent clinical information, including history, physical exam and plan: Yes
--- NOTE | 2016-11-26 13:13 | CP.PCM.PN ---
Subjective - Date & Time of Evaluation Date of Evaluation: 11/26/16 Time of Evaluation: 12:20 - Subjective Subjective: Comfortable, no fevers. Objective - Vital Signs/Intake and Output Vital Signs (last 24 hours): Temp Pulse Resp BP Pulse Ox 99.5 F 101 H 20 137/90 96 11/26/16 08:13 11/26/16 08:13 11/26/16 08:13 11/26/16 08:13 11/26/16 08:13 Intake and Output: 11/26/16 11/26/16 06:59 18:59 Intake Total 120 Output Total 400 Balance -280 - Medications Medications: Current Medications Acetaminophen (Tylenol 325mg Tab) 650 mg PO Q4 PRN PRN Reason: Pain, Mild (1-3) Last Admin: 11/22/16 17:18 Dose: 650 mg Artificial Tears (Artificial Tears) 0.2 ml OU DAILY PRN PRN Reason: Dry skin Last Admin: 11/07/16 10:25 Dose: 2 drop Benzocaine/Menthol (Cepacol Sore Throat) 1 trent MT BID PRN PRN Reason: Sore Throat Last Admin: 11/22/16 21:53 Dose: 1 trent Cadexomer Iodine (Iodosorb) 0 gm TOP DAILY [facility] Last Admin: 11/25/16 15:08 Dose: 1 gm Carvedilol (Coreg) 6.25 mg PO BID [facility] Last Admin: 11/25/16 17:20 Dose: 6.25 mg Collagenase (Santyl) 0 gm TOP DAILY [facility] Last Admin: 11/25/16 15:07 Dose: 1 applic Furosemide (Lasix) 80 mg IVP Q12 [facility] Last Admin: 11/24/16 21:49 Dose: Not Given Heparin Sodium (Porcine) (Heparin) 2,200 units IVP MOWEFR [facility] PRN Reason: Protocol Last Admin: 11/25/16 14:25 Dose: 2,200 units Heparin Sodium (Porcine) (Heparin) 2,400 units IVP MOWEFR [facility] PRN Reason: Protocol Last Admin: 11/25/16 14:25 Dose: 2,400 units Daptomycin 420 mg/ Sodium (Chloride) 100 mls @ 200 mls/hr IV QOTHERDAY [facility] Stop: 12/15/16 10:31 Last Admin: 11/25/16 15:07 Dose: 200 mls/hr Micafungin Sodium 100 mg/ (Sodium Chloride) 100 mls @ 100 mls/hr IV DAILY [facility] PRN Reason: Protocol Stop: 12/22/16 10:01 Last Admin: 11/25/16 15:07 Dose: 100 mls/hr Insulin Detemir (Levemir) 8 unit SC BID [facility] Last Admin: 11/25/16 17:20 Dose: 8 unit Insulin Human Lispro (Humalog Med) 0 units SC ACHS [facility] PRN Reason: Protocol Last Admin: 11/26/16 08:24 Dose: 5 units Ondansetron HCl (Zofran Inj) 4 mg IVP Q6H PRN PRN Reason: Nausea/Vomiting Pantoprazole Sodium (Protonix Ec Tab) 40 mg PO DAILY [facility] Last Admin: 11/25/16 13:56 Dose: Not Given Sodium Bicarbonate (Sodium Bicarbonate Tab) 3,900 mg PO QID [facility] Last Admin: 11/18/16 17:39 Dose: 3,900 mg - Labs Labs: 11/26/16 07:27 11/26/16 07:27 PT 13.2 Seconds (9.9-11.8) H 11/11/16 05:40 INR 1.22 (0.93-1.08) H 11/11/16 05:40 APTT 32.0 Seconds (23.7-30.8) H 11/11/16 05:40 - Constitutional Appears: Non-toxic - Head Exam Head Exam: NORMAL INSPECTION - ENT Exam ENT Exam: Mucous Membranes Moist - Neck Exam Neck Exam: absent: Lymphadenopathy, Meningismus - Respiratory Exam Respiratory Exam: Decreased Breath Sounds - Cardiovascular Exam Cardiovascular Exam: +S1, +S2 - GI/Abdominal Exam GI & Abdominal Exam: Soft. absent: Tenderness - Extremities Exam Additional comments: left leg with dressings in place Assessment and Plan - Assessment and Plan (Free Text) Plan: Assessment Severe sepsis with acute renal failure due to acute pyelonephritis, with MRSA in the urine and now with perinephric abscess S/P IR-guided drainage (growing Chelsey ciferii) as well as left foot wound infection/abscess with MRSA, MRI showing osteomyelitis, S/P surgery POD #23 DM with diabetic neuropathy HTN history of right DVT bilateral foot ulcers Plan on renally-adjusted IV Daptomycin (day 23); repeat blood cx and urine negative are negative; will need 4-6 weeks of antibiotics 2D echo does not show vegetations will need weekly ESR, CRP, CBC, CMP, CPK levels while on antibiotics kidney biopsy is showing probable pyelonephritis / neutrophilic infiltration - perinephric abscess has been drained - follow up sensitivities of the C. ciferii from the abscess (but it in some case reports it can be Fluconazole resistant) overall prognosis is poor will continue to monitor clinically discussed with Dr. Preston
--- NOTE | 2016-11-26 17:49 | CP.PCM.PN ---
Subjective - Date & Time of Evaluation Date of Evaluation: 11/26/16 Time of Evaluation: 17:42 - Subjective Subjective: Patient not examined due to her refusal to be seen; Objective - Vital Signs/Intake and Output Vital Signs (last 24 hours): Temp Pulse Resp BP Pulse Ox 99.5 F 90 20 138/90 96 11/26/16 08:13 11/26/16 10:35 11/26/16 08:13 11/26/16 10:35 11/26/16 08:13 Intake and Output: 11/26/16 11/26/16 06:59 18:59 Intake Total 120 Output Total 400 Balance -280 - Medications Medications: Current Medications Acetaminophen (Tylenol 325mg Tab) 650 mg PO Q4 PRN PRN Reason: Pain, Mild (1-3) Last Admin: 11/22/16 17:18 Dose: 650 mg Artificial Tears (Artificial Tears) 0.2 ml OU DAILY PRN PRN Reason: Dry skin Last Admin: 11/07/16 10:25 Dose: 2 drop Benzocaine/Menthol (Cepacol Sore Throat) 1 trent MT BID PRN PRN Reason: Sore Throat Last Admin: 11/22/16 21:53 Dose: 1 trent Cadexomer Iodine (Iodosorb) 0 gm TOP DAILY [facility] Last Admin: 11/25/16 15:08 Dose: 1 gm Carvedilol (Coreg) 6.25 mg PO BID [facility] Last Admin: 11/26/16 10:35 Dose: 6.25 mg Collagenase (Santyl) 0 gm TOP DAILY [facility] Last Admin: 11/25/16 15:07 Dose: 1 applic Furosemide (Lasix) 80 mg PO BID [facility] Heparin Sodium (Porcine) (Heparin) 2,200 units IVP MOWEFR [facility] PRN Reason: Protocol Last Admin: 11/25/16 14:25 Dose: 2,200 units Heparin Sodium (Porcine) (Heparin) 2,400 units IVP MOWEFR [facility] PRN Reason: Protocol Last Admin: 11/25/16 14:25 Dose: 2,400 units Daptomycin 420 mg/ Sodium (Chloride) 100 mls @ 200 mls/hr IV QOTHERDAY [facility] Stop: 12/15/16 10:31 Last Admin: 11/25/16 15:07 Dose: 200 mls/hr Micafungin Sodium 100 mg/ (Sodium Chloride) 100 mls @ 100 mls/hr IV DAILY [facility] PRN Reason: Protocol Stop: 12/22/16 10:01 Last Admin: 11/26/16 10:35 Dose: 100 mls/hr Insulin Detemir (Levemir) 8 unit SC BID [facility] Last Admin: 11/26/16 10:35 Dose: 8 unit Insulin Human Lispro (Humalog Med) 0 units SC ACHS [facility] PRN Reason: Protocol Last Admin: 11/26/16 16:49 Dose: Not Given Lactic Acid (Lac-Hydrin 12% Cream (140 G)) 0 ea TOP DAILY [facility] Ondansetron HCl (Zofran Inj) 4 mg IVP Q6H PRN PRN Reason: Nausea/Vomiting Pantoprazole Sodium (Protonix Ec Tab) 40 mg PO DAILY [facility] Last Admin: 11/26/16 10:36 Dose: 40 mg - Labs Labs: 11/26/16 07:27 11/26/16 07:27 PT 13.2 Seconds (9.9-11.8) H 11/11/16 05:40 INR 1.22 (0.93-1.08) H 11/11/16 05:40 APTT 32.0 Seconds (23.7-30.8) H 11/11/16 05:40 Assessment and Plan (1) Acute renal failure Assessment & Plan: EMMETT on CKD; secondary to severe pyelonephritis; on micafungin for Chelsey sp in renal abcess aspirate; HD dependent; next HD tomorrow; will check urea reduction ratio tomorrow to see if HD time can be shortened slightly; otherwise needs outpatient HD setup (not as ESRD since she has an acute process that can possibly resolve) but reportedly her insurance has lapsed; our HD medical social consultant will confer with floor medical social consultant regarding this matter; -continue HD qMWF -lasix 80 mg PO bid on non-HD days as she is oliguric without diuretics; Status: Acute (2) CKD (chronic kidney disease) Assessment & Plan: Secondary to DM nephropathy but will likely have significant fibrosis once current pyelo resolves; otherwise, secondary hyperparathyroidism is relatively mild, no indication to start calcitriol yet; check phos periodically (has thus far not needed to start binders); Status: Chronic (3) Anemia Assessment & Plan: Secondary to chronic disease/renal failure; hgb overall improved and stable; received increased dose of aranesp at 80 mcg yesterday, repeat weekly on HD; Status: Acute (4) Metabolic acidosis Status: Acute (5) Sepsis Assessment & Plan: With OM and pyelo; abx per ID; dapto needs to be dose post-HD; Status: Acute (6) CHF (congestive heart failure) Assessment & Plan: With severe systolic dysfunction but overall asympomatic; UF on HD; lasix as above; continue coreg 6.25 mg bid (BP better controlled on it); Status: Acute
[2016-11-26] MEDS: Ammonium Lactate 12% Cream (140 g) TOP SCH (18:41)
[2016-11-27 07:32] LABS: BASO # 0.05 K/mm3 (0.0-2.0); BASO % 0.4 % (0.0-3.0); EOS # 0.3 (0.0-0.7); EOS % 2.8 % (1.5-5.0); GRAN # 9.29 (1.4-6.5); GRAN % 75.3 % (50.0-68.0); HEMATOCRIT 27.1 % (36.0-48.0); LYMPH # 1.9 (1.2-3.4); LYMPH % 15.2 % (22.0-35.0); MEAN CELL VOLUME 88.3 fl (80.0-105.0); MEAN CORPUSCULAR HEMOGLOBIN 27.7 pg (25.0-35.0); MEAN CORPUSCULAR HGB CONC 31.4 g/dl (31.0-37.0); MONO # 0.8 (0.1-0.6); MONO % 6.3 % (1.0-6.0); RED CELL DISTRIBUTION WIDTH 15.2 % (11.5-14.5); WHITE BLOOD COUNT 12.3 10^3/ul (4.5-11.0)
[2016-11-27] MEDS: Insulin Lispro (humaLOG) MEDIUM Coverage SC SCH ×2 (07:46→11:46)
[2016-11-27 08:10] LABS: ALB/GLOB RATIO 0.6 (1.1-1.8); BILIRUBIN,TOTAL 0.6 mg/dL (0.2-1.3); CALCIUM 8.4 mg/dL (8.4-10.5); POTASSIUM 4.7 mmol/L (3.6-5.0); TOTAL PROTEIN 8.3 g/dL (5.8-8.3)
[2016-11-27] MEDS: CADEXOMER IODINE 0.9% GEL 10G TOP SCH (10:47)
[2016-11-27] MEDS: Insulin Detemir 100 units/ml Vial (Levemir) SC SCH (10:48)
[2016-11-27] MEDS: Micafungin 100 MG in Sodium Chloride 0.9% 100 ML IV SCH ×2 (10:49→12:23)
[2016-11-27] MEDS: Ammonium Lactate 12% Cream (140 g) TOP SCH (11:47)
[2016-11-27] MEDS: Collagenase 250 Units/gm Ointment(30 gm) TOP SCH (11:48)
[2016-11-27 11:51] VITALS: TEMP 98.1; O2SAT 98
[2016-11-27] MEDS: Pantoprazole 40 mg EC Tab PO SCH (12:24)
--- NOTE | 2016-11-27 12:55 | CP.PCM.PN ---
<Jose Ramon Taylor - Last Filed: 11/27/16 12:52> Subjective - Date & Time of Evaluation Date of Evaluation: 11/27/16 Time of Evaluation: 12:53 - Subjective Subjective: 36 year old female seen and evaluated at bedside POD#27 left foot I&D (DOS: 10/31). Patient is AAOx3 and NAD, resting comfortably in her bed. Patient denies any acute overnight events. Patient denies any pain to her lower extremity. Patient denies any F/N/V/C/SOB/Chest pain. Patient denies of any other pedal complains at this time. Objective - Vital Signs/Intake and Output Vital Signs (last 24 hours): Temp Pulse Resp BP Pulse Ox 98.1 F 85 20 131/85 98 11/27/16 07:00 11/27/16 12:24 11/27/16 07:00 11/27/16 12:24 11/27/16 07:00 Intake and Output: 11/27/16 11/27/16 06:59 18:59 Intake Total 1240 Output Total 750 Balance 490 - Medications Medications: Current Medications Acetaminophen (Tylenol 325mg Tab) 650 mg PO Q4 PRN PRN Reason: Pain, Mild (1-3) Last Admin: 11/22/16 17:18 Dose: 650 mg Artificial Tears (Artificial Tears) 0.2 ml OU DAILY PRN PRN Reason: Dry skin Last Admin: 11/07/16 10:25 Dose: 2 drop Benzocaine/Menthol (Cepacol Sore Throat) 1 trent MT BID PRN PRN Reason: Sore Throat Last Admin: 11/22/16 21:53 Dose: 1 trent Cadexomer Iodine (Iodosorb) 0 gm TOP DAILY [facility] Last Admin: 11/27/16 10:47 Dose: 10 gm Carvedilol (Coreg) 6.25 mg PO BID [facility] Last Admin: 11/27/16 12:24 Dose: 6.25 mg Collagenase (Santyl) 0 gm TOP DAILY [facility] Last Admin: 11/27/16 11:48 Dose: 1 applic Furosemide (Lasix) 80 mg PO BID [facility] Heparin Sodium (Porcine) (Heparin) 2,200 units IVP MOWEFR [facility]ERR[facility] PRN Reason: Protocol Last Admin: 11/25/16 14:25 Dose: 2,200 units Heparin Sodium (Porcine) (Heparin) 2,400 units IVP MOWEFR [facility] PRN Reason: Protocol Last Admin: 11/25/16 14:25 Dose: 2,400 units Daptomycin 420 mg/ Sodium (Chloride) 100 mls @ 200 mls/hr IV QOTHERDAY [facility] Stop: 12/15/16 10:31 Last Admin: 11/25/16 15:07 Dose: 200 mls/hr Micafungin Sodium 100 mg/ (Sodium Chloride) 100 mls @ 100 mls/hr IV DAILY [facility] PRN Reason: Protocol Stop: 12/22/16 10:01 Last Admin: 11/27/16 12:23 Dose: 100 mls/hr Insulin Detemir (Levemir) 8 unit SC BID [facility] Last Admin: 11/27/16 10:48 Dose: Not Given Insulin Human Lispro (Humalog Med) 0 units SC ACHS [facility] PRN Reason: Protocol Last Admin: 11/27/16 11:46 Dose: Not Given Lactic Acid (Lac-Hydrin 12% Cream (140 G)) 0 ea TOP DAILY [facility] Last Admin: 11/27/16 11:47 Dose: 1 applic Ondansetron HCl (Zofran Inj) 4 mg IVP Q6H PRN PRN Reason: Nausea/Vomiting Pantoprazole Sodium (Protonix Ec Tab) 40 mg PO DAILY [facility] Last Admin: 11/27/16 12:24 Dose: 40 mg - Labs Labs: 11/27/16 07:00 11/27/16 07:00 PT 13.2 Seconds (9.9-11.8) H 11/11/16 05:40 INR 1.22 (0.93-1.08) H 11/11/16 05:40 APTT 32.0 Seconds (23.7-30.8) H 11/11/16 05:40 - Constitutional Appears: Well, Non-toxic, No Acute Distress - Extremities Exam Additional comments: Left lower extremity focused examination. Dressings are clean, dry, and intact with no strikethrough noted. Patient wearing multipodus boots b/l VASC: DP and PT pulses palpable 2/4 b/l. TG WNL b/l. No edema noted to left foot. CFT < 3 seconds to all digits b/l. NEURO: Gross sensation absent bilaterally. DERM: LLE = One uniform full thickness ulceration noted to left medial heel measuring approximately 3.6 x 2.8 x 1.1 cm with wound base appearing as a granular ring and fibrotic core no active drainage noted. No erythema,no malodor, no acute signs of infection. ORTHO: No pain on palpation noted. - Neurological Exam Neurological Exam: Alert, Awake, Oriented x3 - Psychiatric Exam Psychiatric exam: Normal Affect, Normal Mood Assessment and Plan - Assessment and Plan (Free Text) Assessment: 36 year old female PMHx IDDM, renal failure, sepsis, metabolic acidosis, UTI, CKD, anemia 1) s/p left foot incision and drainage with wound debridement; 2) Stage 1 pressure ulcer right heel Plan: Patient seen and evaluated at bedside Discussed the plan in detail with attending Dr. Craven Chart, vitals, labs reviewed - afebrile, WBC= 12.3 down from 13.1 yesterday Left foot wound culture = MRSA Urine culture - yeast Per ID, continue renally-adjusted Daptomycin; patient will need 6 weeks of abx Wounds cleansed with saline, dressed with Maxorb, gauze, kirlix Patient to wear multipodus boots at all times while in bed to prevent progression of pressure ulcer formation R heel. Patient may WBAT in Darco Heel Wedge to the left and surgical shoe to the right. Darco Heel Wedge must be worn to the left at all times when ambulating C/W physical therapy Prognosis for limb salvage poor At this point, no further debridements are considered for left foot; will be seen in followup Podiatry will continue to follow patient while in house <Logan Craven - Last Filed: 11/27/16 17:50> Objective - Vital Signs/Intake and Output Vital Signs (last 24 hours): Temp Pulse Resp BP Pulse Ox 98.1 F 107 H 20 169/123 H 98 11/27/16 16:22 11/27/16 16:22 11/27/16 16:22 11/27/16 16:22 11/27/16 16:22 Intake and Output: 11/27/16 11/27/16 06:59 18:59 Intake Total 1240 1020 Output Total 750 Balance 490 1020 - Labs Labs: 11/27/16 07:00 11/27/16 07:00 PT 13.2 Seconds (9.9-11.8) H 11/11/16 05:40 INR 1.22 (0.93-1.08) H 11/11/16 05:40 APTT 32.0 Seconds (23.7-30.8) H 11/11/16 05:40 Attending/Attestation - Attestation I have personally seen and examined this patient.: Yes I have fully participated in the care of the patient.: Yes I have reviewed all pertinent clinical information, including history, physical exam and plan: Yes
--- NOTE | 2016-11-27 12:57 | CP.PCM.PN ---
Subjective - Date & Time of Evaluation Date of Evaluation: 11/27/16 Time of Evaluation: 12:05 - Subjective Subjective: No fevers, not in distress. Objective - Vital Signs/Intake and Output Vital Signs (last 24 hours): Temp Pulse Resp BP Pulse Ox 98.2 F 98 H 20 138/89 99 11/27/16 00:00 11/27/16 00:00 11/27/16 00:00 11/27/16 00:00 11/27/16 00:00 Intake and Output: 11/27/16 11/27/16 06:59 18:59 Intake Total 1240 Output Total 750 Balance 490 - Medications Medications: Current Medications Acetaminophen (Tylenol 325mg Tab) 650 mg PO Q4 PRN PRN Reason: Pain, Mild (1-3) Last Admin: 11/22/16 17:18 Dose: 650 mg Artificial Tears (Artificial Tears) 0.2 ml OU DAILY PRN PRN Reason: Dry skin Last Admin: 11/07/16 10:25 Dose: 2 drop Benzocaine/Menthol (Cepacol Sore Throat) 1 trent MT BID PRN PRN Reason: Sore Throat Last Admin: 11/22/16 21:53 Dose: 1 trent Cadexomer Iodine (Iodosorb) 0 gm TOP DAILY [facility] Last Admin: 11/25/16 15:08 Dose: 1 gm Carvedilol (Coreg) 6.25 mg PO BID [facility] Last Admin: 11/26/16 18:34 Dose: 6.25 mg Collagenase (Santyl) 0 gm TOP DAILY [facility] Last Admin: 11/26/16 10:40 Dose: 1 applic Furosemide (Lasix) 80 mg PO BID [facility] Last Admin: 11/26/16 18:35 Dose: 80 mg Heparin Sodium (Porcine) (Heparin) 2,200 units IVP MOWEFR [facility] PRN Reason: Protocol Last Admin: 11/25/16 14:25 Dose: 2,200 units Heparin Sodium (Porcine) (Heparin) 2,400 units IVP MOWEFR [facility] PRN Reason: Protocol Last Admin: 11/25/16 14:25 Dose: 2,400 units Daptomycin 420 mg/ Sodium (Chloride) 100 mls @ 200 mls/hr IV QOTHERDAY [facility] Stop: 12/15/16 10:31 Last Admin: 11/25/16 15:07 Dose: 200 mls/hr Micafungin Sodium 100 mg/ (Sodium Chloride) 100 mls @ 100 mls/hr IV DAILY [facility] PRN Reason: Protocol Stop: 12/22/16 10:01 Last Admin: 11/26/16 10:35 Dose: 100 mls/hr Insulin Detemir (Levemir) 8 unit SC BID [facility] Last Admin: 11/26/16 10:35 Dose: 8 unit Insulin Human Lispro (Humalog Med) 0 units SC ACHS [facility] PRN Reason: Protocol Last Admin: 11/26/16 21:46 Dose: Not Given Lactic Acid (Lac-Hydrin 12% Cream (140 G)) 0 ea TOP DAILY [facility] Last Admin: 11/26/16 18:41 Dose: 1 applic Ondansetron HCl (Zofran Inj) 4 mg IVP Q6H PRN PRN Reason: Nausea/Vomiting Pantoprazole Sodium (Protonix Ec Tab) 40 mg PO DAILY [facility] Last Admin: 11/26/16 10:36 Dose: 40 mg - Labs Labs: 11/27/16 07:00 11/27/16 07:00 PT 13.2 Seconds (9.9-11.8) H 11/11/16 05:40 INR 1.22 (0.93-1.08) H 11/11/16 05:40 APTT 32.0 Seconds (23.7-30.8) H 11/11/16 05:40 - Constitutional Appears: Non-toxic - ENT Exam ENT Exam: Mucous Membranes Moist - Neck Exam Neck Exam: absent: Meningismus - Respiratory Exam Respiratory Exam: Decreased Breath Sounds - Cardiovascular Exam Cardiovascular Exam: +S1, +S2 - GI/Abdominal Exam GI & Abdominal Exam: Soft. absent: Tenderness Assessment and Plan - Assessment and Plan (Free Text) Plan: Assessment Severe sepsis with acute renal failure due to acute pyelonephritis, with MRSA in the urine and now with perinephric abscess S/P IR-guided drainage (growing Chelsey ciferii) as well as left foot wound infection/abscess with MRSA, MRI showing osteomyelitis, S/P surgery POD #24 DM with diabetic neuropathy HTN history of right DVT bilateral foot ulcers Plan on renally-adjusted IV Daptomycin (day 24); repeat blood cx and urine negative are negative; will need 4-6 weeks of antibiotics 2D echo does not show vegetations will need weekly ESR, CRP, CBC, CMP, CPK levels while on antibiotics kidney biopsy is showing probable pyelonephritis / neutrophilic infiltration - perinephric abscess has been drained - follow up sensitivities of the C. ciferii from the abscess (but it in some case reports it can be Fluconazole resistant) overall prognosis is poor will continue to monitor clinically discussed with Dr. Preston
--- NOTE | 2016-11-27 13:46 | CP.PCM.PN ---
<Ata Ackerman - Last Filed: 11/27/16 13:41> Subjective - Date & Time of Evaluation Date of Evaluation: 11/27/16 Time of Evaluation: 07:20 - Subjective Subjective: Subjective: Patient seen and examined at bedside. Resting comfortably in bed. States she is feeling fine. Denies foot pain. States she is working on attaining insurance. Offers no new complaints. Denies f/c/cp/sob/abdominal pain/n/v/d/c/ urinary sxs. Physical Examination: - Constitutional Appears: NAD - Head Exam Head Exam: ATRAUMATIC, NORMAL INSPECTION, NORMOCEPHALIC - Eye Exam Eye Exam: EOMI, Normal appearance, PERRL Pupil Exam: NORMAL ACCOMODATION, PERRL - ENT Exam ENT Exam: Mucous Membranes Moist, Normal Exam - Respiratory Exam Respiratory Exam: Clear to Auscultation Bilateral, NORMAL BREATHING PATTERN - Cardiovascular Exam Cardiovascular Exam: REGULAR RHYTHM, +S1, +S2 - GI/Abdominal Exam GI & Abdominal Exam: Normal Bowel Sounds, Soft. absent: Tenderness - Extremities Exam Extremities exam: left foot bandaged - Back Exam Back exam: CVA tenderness (L), CVA tenderness (R) - Neurological Exam Neurological exam: Patient is awake, alert, responds to verbal stimuli, answers questions appropriately, follows commands, and moves extremities past midline - Psychiatric Exam Psychiatric exam: Normal Affect, Normal Mood Assessment and Plan: Worsening CKD - Cr increased today- potential HD today if she complies - c/w micfungin and daptomycin as per ID LLE Osteomyelitis - s/p I&D - Will require 6 weeks of abx as per ID, will await recs - WBC downtrending Anemia likely 2/2 chronic dz - Hgb trended and stable - c/w aransep once weekly Hx DM - glucose levels in the 200s- monitor closely- advised to continue with recommended diet - c/w levemir to 8 BID - ISS med Cardiomyopathy - ECHO shows EF of 35% - Cardiology consulted, Dr. Ryan- appreciate recommendations PPX - protonix - no scds due to foot infection, no lovenox due to renal function, no heparin due to decreasing H/H Dispo: - insurance has lapsed; awaiting insurance approval, elementary school social worker following patient Patient case discussed with and plan approved by attending physician, Dr. Rangasamy. Objective - Vital Signs/Intake and Output Vital Signs (last 24 hours): Temp Pulse Resp BP Pulse Ox 98.1 F 85 20 131/85 98 11/27/16 07:00 11/27/16 12:24 11/27/16 07:00 11/27/16 12:24 11/27/16 07:00 Intake and Output: 11/27/16 11/27/16 06:59 18:59 Intake Total 1240 1020 Output Total 750 Balance 490 1020 - Medications Medications: Current Medications Acetaminophen (Tylenol 325mg Tab) 650 mg PO Q4 PRN PRN Reason: Pain, Mild (1-3) Last Admin: 11/22/16 17:18 Dose: 650 mg Artificial Tears (Artificial Tears) 0.2 ml OU DAILY PRN PRN Reason: Dry skin Last Admin: 11/07/16 10:25 Dose: 2 drop Benzocaine/Menthol (Cepacol Sore Throat) 1 trent MT BID PRN PRN Reason: Sore Throat Last Admin: 11/22/16 21:53 Dose: 1 trent Cadexomer Iodine (Iodosorb) 0 gm TOP DAILY [facility] Last Admin: 11/27/16 10:47 Dose: 10 gm Carvedilol (Coreg) 6.25 mg PO BID [facility] Last Admin: 11/27/16 12:24 Dose: 6.25 mg Collagenase (Santyl) 0 gm TOP DAILY [facility] Last Admin: 11/27/16 11:48 Dose: 1 applic Furosemide (Lasix) 80 mg PO BID [facility] Heparin Sodium (Porcine) (Heparin) 2,200 units IVP MOWEFR [facility] PRN Reason: Protocol Last Admin: 11/25/16 14:25 Dose: 2,200 units Heparin Sodium (Porcine) (Heparin) 2,400 units IVP MOWEFR [facility] PRN Reason: Protocol Last Admin: 11/25/16 14:25 Dose: 2,400 units Daptomycin 420 mg/ Sodium (Chloride) 100 mls @ 200 mls/hr IV QOTHERDAY [facility] Stop: 12/15/16 10:31 Last Admin: 11/27/16 13:26 Dose: 200 mls/hr Micafungin Sodium 100 mg/ (Sodium Chloride) 100 mls @ 100 mls/hr IV DAILY [facility] PRN Reason: Protocol Stop: 12/22/16 10:01 Last Admin: 11/27/16 12:23 Dose: 100 mls/hr Insulin Detemir (Levemir) 8 unit SC BID [facility] Last Admin: 11/27/16 10:48 Dose: Not Given Insulin Human Lispro (Humalog Med) 0 units SC ACHS [facility] PRN Reason: Protocol Last Admin: 11/27/16 11:46 Dose: Not Given Lactic Acid (Lac-Hydrin 12% Cream (140 G)) 0 ea TOP DAILY [facility] Last Admin: 11/27/16 11:47 Dose: 1 applic Ondansetron HCl (Zofran Inj) 4 mg IVP Q6H PRN PRN Reason: Nausea/Vomiting Pantoprazole Sodium (Protonix Ec Tab) 40 mg PO DAILY [facility] Last Admin: 11/27/16 12:24 Dose: 40 mg - Labs Labs: 11/27/16 07:00 11/27/16 07:00 PT 13.2 Seconds (9.9-11.8) H 11/11/16 05:40 INR 1.22 (0.93-1.08) H 11/11/16 05:40 APTT 32.0 Seconds (23.7-30.8) H 11/11/16 05:40 <Laquita Talley - Last Filed: 11/28/16 16:06> Objective - Vital Signs/Intake and Output Vital Signs (last 24 hours): Temp Pulse Resp BP Pulse Ox 98.1 F 85 20 131/85 98 11/27/16 07:00 11/27/16 12:24 11/27/16 07:00 11/27/16 12:24 11/27/16 07:00 Intake and Output: 11/27/16 11/27/16 06:59 18:59 Intake Total 1240 1020 Output Total 750 Balance 490 1020 - Medications Medications: Current Medications Acetaminophen (Tylenol 325mg Tab) 650 mg PO Q4 PRN PRN Reason: Pain, Mild (1-3) Last Admin: 11/22/16 17:18 Dose: 650 mg Artificial Tears (Artificial Tears) 0.2 ml OU DAILY PRN PRN Reason: Dry skin Last Admin: 11/07/16 10:25 Dose: 2 drop Benzocaine/Menthol (Cepacol Sore Throat) 1 trent MT BID PRN PRN Reason: Sore Throat Last Admin: 11/22/16 21:53 Dose: 1 trent Cadexomer Iodine (Iodosorb) 0 gm TOP DAILY [facility] Last Admin: 11/27/16 10:47 Dose: 10 gm Carvedilol (Coreg) 6.25 mg PO BID [facility] Last Admin: 11/27/16 12:24 Dose: 6.25 mg Collagenase (Santyl) 0 gm TOP DAILY [facility] Last Admin: 11/27/16 11:48 Dose: 1 applic Furosemide (Lasix) 80 mg PO BID [facility] Heparin Sodium (Porcine) (Heparin) 2,200 units IVP MOWEFR [facility] PRN Reason: Protocol Last Admin: 11/25/16 14:25 Dose: 2,200 units Heparin Sodium (Porcine) (Heparin) 2,400 units IVP MOWEFR [facility] PRN Reason: Protocol Last Admin: 11/25/16 14:25 Dose: 2,400 units Daptomycin 420 mg/ Sodium (Chloride) 100 mls @ 200 mls/hr IV QOTHERDAY [facility] Stop: 12/15/16 10:31 Last Admin: 11/27/16 13:26 Dose: 200 mls/hr Micafungin Sodium 100 mg/ (Sodium Chloride) 100 mls @ 100 mls/hr IV DAILY [facility] PRN Reason: Protocol Stop: 12/22/16 10:01 Last Admin: 11/27/16 12:23 Dose: 100 mls/hr Insulin Detemir (Levemir) 8 unit SC BID [facility] Last Admin: 11/27/16 10:48 Dose: Not Given Insulin Human Lispro (Humalog Med) 0 units SC ACHS [facility] PRN Reason: Protocol Last Admin: 11/27/16 11:46 Dose: Not Given Lactic Acid (Lac-Hydrin 12% Cream (140 G)) 0 ea TOP DAILY [facility] Last Admin: 11/27/16 11:47 Dose: 1 applic Ondansetron HCl (Zofran Inj) 4 mg IVP Q6H PRN PRN Reason: Nausea/Vomiting Pantoprazole Sodium (Protonix Ec Tab) 40 mg PO DAILY [facility] Last Admin: 11/27/16 12:24 Dose: 40 mg - Labs Labs: 11/27/16 07:00 11/27/16 07:00 PT 13.2 Seconds (9.9-11.8) H 11/11/16 05:40 INR 1.22 (0.93-1.08) H 11/11/16 05:40 APTT 32.0 Seconds (23.7-30.8) H 11/11/16 05:40 Attending/Attestation - Attestation I have personally seen and examined this patient.: Yes I have fully participated in the care of the patient.: Yes I have reviewed all pertinent clinical information, including history, physical exam and plan: Yes Notes (Text): 11/27/16 14:32 Attending note; Patient seen and examined with resident. Patient is a 36 year old female with history of IDDM, HTN, dyslipidemia, wheel chair bound, 2 amputated toes of left leg and chronic LE ulcer who presented with severe sepsis secondary to acute pyelonephritis, osteomyelitis of L foot, Acute on chronic kidney disease and anemia. Continue daptomycin for MRSA of left foot and MIcafungin for miky ciferrii renal abscess. She needs to complete a total of 4 to 6 weeks of IV daptomycin. Creatinine is 3.8 today. Monitor closely. Follow-up dialysis schedule with Dr. Preston. Case discussed with director of casework services in detail. Needs outpatient hemodialysis unit placement. The patient does not have any insurance active at this point. Long-term prognosis is poor secondary to multiple medical problems and noncompliance with follow-up. Patient reports that she wants to go home. She was explained that outpatient HD has not been set up yet due to lack of active insurance. Patient also needs IV anti-biotics and wound care. elementary school social worker evaluation appreciated. Upon discharge patient will follow up with . addendum; Patient wanted to sign AMA The risks of signing AGAINST MEDICAL ADVICE explained to the patient in detail. Currently patient has MRSA infection of the left foot getting anti-biotics. Patient also has fungal renal abscess getting IV Micafungin. Patient might go into sepsis, septic shock including if she stops antibiotics on anti- fungal treatment. patient also refused hemodialysis. Nephrology informed. Agreed to keep the HD catheter in. patient will get opinion from own PMD /nephrology as putpatient. PICC line was removedd. [place] catheter removed. patient arranged her own transportation home.
[2016-11-27 16:23] VITALS: BP 169/123; PULSE 107
--- NOTE | 2016-11-27 17:39 | CP.PCM.PN ---
Subjective - Date & Time of Evaluation Date of Evaluation: 11/27/16 Time of Evaluation: 17:28 - Subjective Subjective: Patient's labs and vitals reviewed this morning; 36 yo F w/ pmh of DM, CKD, bedbound, necrotic L lower ext previously refused amputation, initially admitted to ICU with severe metabolic acidosis in the setting of acute renal failure, L foot osteomyelitis; Patient was stabilized and initiated on HD on second day of admission; was receiving abx with daptomycin for OM with foot wound that grew MRSA; urine culture also grew MRSA as well as yeast; abx were broadened to meropenem after patient spiked high grade temp; Renal biopsy was performed due to unclear etiology of EMMETT (baseline creat thought to be ~3 from labs in 09/2016) and for persistent gross pyuria (despite repeat urine culture that was negative); biopsy was consistent with acute pyelonephritis (as well as DM nephropathy); patient was then placed on fluconazole; as patient had already been on prolonged abx, it was decided to pursue CT w/ IV contrast to look for renal abcesses; multiple small abcesses were found; last week, IR performed aspiration of one of the larger abcesses; aspirate grew miky ciferii (still awaiting sensitivities); antifungal agent was therefore changed to micafungin due to concern for fluconazole resistance; Patient has been in denial concerning her renal failure; she feels that she doesn't need dialysis; at one point she had wanted us to restart a bicarb drip for her instead of dialysis thinking that this would treat her renal failure ( dialysis was halted on 2 separate occasions to see patient's ability to survive on her residual renal function; on both occasions she became acidotic, even though she was on a very high dose of PO bicarb the second time); we have explained to her that her creatinine clearance is extremely low and that there is no alternative to dialysis for her currently; Another bathroom tiling professional was consulted at her bequest and he also indicated that HD is needed; Patient was explained that she needs roasterman IV antibiotics to attempt to resolve the severe pyelonephritis that is causing her acute renal failure; Today, patient refused dialysis and decided to sign out of the hospital against medical advice; patient's case has been repeatedly discussed with the primary attending who has been repeatedly counseling the patient on the gravity of her medical condition; I believe that we have done our best to diagnose and treat patient's acute renal failure with our goal that perhaps her renal function may improve and she would be free from dialysis dependence at some point in the near future; however, the patient has chosen to disregard our medical advice. Objective - Vital Signs/Intake and Output Vital Signs (last 24 hours): Temp Pulse Resp BP Pulse Ox 98.1 F 107 H 20 169/123 H 98 11/27/16 16:22 11/27/16 16:22 11/27/16 16:22 11/27/16 16:22 11/27/16 16:22 Intake and Output: 11/27/16 11/27/16 06:59 18:59 Intake Total 1240 1020 Output Total 750 Balance 490 1020 - Labs Labs: 11/27/16 07:00 11/27/16 07:00 PT 13.2 Seconds (9.9-11.8) H 11/11/16 05:40 INR 1.22 (0.93-1.08) H 11/11/16 05:40 APTT 32.0 Seconds (23.7-30.8) H 11/11/16 05:40 Assessment and Plan (1) Acute renal failure Status: Acute (2) CKD (chronic kidney disease) Status: Chronic (3) Anemia Status: Acute (4) Metabolic acidosis Status: Acute (5) Sepsis Status: Acute (6) CHF (congestive heart failure) Status: Acute
--- NOTE | 2016-11-28 15:07 | CP.PCM.DIS ---
Provider - Provider Date of Admission: 10/26/16 20:38 Attending physician: Laquita Talley MD Primary care physician: Kyler Bunch Jr, MD Time Spent in preparation of Discharge (in minutes): 45 Diagnosis - Discharge Diagnosis (1) Pyelonephritis Status: Acute Priority: Medium (2) Diabetes Status: Acute Priority: Medium (3) Diabetic foot ulcer Status: Acute Priority: Medium (4) Sepsis Status: Acute Priority: Medium (5) Urinary tract infection Status: Acute Priority: Medium Hospital Course - Lab Results Lab Results: Micro Results 11/22/16 11:05 Other: Please Indicate Gram Stain - Final 11/22/16 11:05 Other: Please Indicate Anaerobic Culture - Final NO ANAEROBES ISOLATED. 11/22/16 11:05 Other: Please Indicate Body Fluid Culture - Final Chelsey Ciferrii 11/22/16 11:05 Other: Please Indicate Fungal Culture - Final Chelsey Albicans 11/24/16 15:20 Other: Please Indicate Mycobacterial Culture - Preliminary 11/10/16 01:45 Other: Please Indicate Mycobacterial Culture - Preliminary 11/22/16 11:06 Other: Please Indicate Mycobacterial Culture - Preliminary 11/10/16 10:50 Blood Blood Culture - Final NO GROWTH AFTER 5 DAYS 11/10/16 10:50 Blood Gram Stain - Final TEST NOT PERFORMED 11/10/16 10:30 Blood Blood Culture - Final NO GROWTH AFTER 5 DAYS 11/10/16 10:30 Blood Gram Stain - Final TEST NOT PERFORMED 11/10/16 11:00 Urine Urine Culture - Final No Growth (<1,000 CFU/ML) 11/10/16 11:00 Stool C. difficile Antigen & Toxin A,B (M - Final 11/06/16 16:04 Urine,[place] Urine Culture - Final Yeast Species 10/31/16 07:47 Blood-Venous Blood Culture - Final NO GROWTH AFTER 5 DAYS 10/31/16 07:47 Blood-Venous Gram Stain - Final TEST NOT PERFORMED 10/31/16 07:47 Blood-Venous Blood Culture - Final NO GROWTH AFTER 5 DAYS 10/31/16 07:47 Blood-Venous Gram Stain - Final TEST NOT PERFORMED 11/02/16 22:40 Stool C. difficile Antigen & Toxin A,B (M - Final 11/01/16 10:59 Urine,[place] Urine Culture - Final Yeast Species 10/31/16 10:05 Foot - Left Gram Stain - Final 10/31/16 10:05 Foot - Left Wound Culture - Final Methicillin Resistant S Aureus 10/28/16 19:30 Foot - Left Gram Stain - Final 10/28/16 19:30 Foot - Left Wound Culture - Final Methicillin Resistant S Aureus Most Recent Lab Values WBC 12.3 10^3/ul (4.5-11.0) H 11/27/16 07:00 RBC 3.07 10^6/uL (3.5-6.1) L 11/27/16 07:00 Hgb 8.5 g/dL (12.0-16.0) L 11/27/16 07:00 Hct 27.1 % (36.0-48.0) L 11/27/16 07:00 MCV 88.3 fl (80.0-105.0) 11/27/16 07:00 MCH 27.7 pg (25.0-35.0) 11/27/16 07:00 MCHC 31.4 g/dl (31.0-37.0) 11/27/16 07:00 RDW 15.2 % (11.5-14.5) H 11/27/16 07:00 Plt Count 346 10^3/uL (120.0-450.0) 11/27/16 07:00 MPV 9.0 fl (7.0-11.0) 11/27/16 07:00 Gran % 75.3 % (50.0-68.0) H 11/27/16 07:00 Lymph % (Auto) 15.2 % (22.0-35.0) L 11/27/16 07:00 [place] % (Auto) 6.3 % (1.0-6.0) H 11/27/16 07:00 Eos % (Auto) 2.8 % (1.5-5.0) 11/27/16 07:00 Baso % (Auto) 0.4 % (0.0-3.0) 11/27/16 07:00 Gran # 9.29 (1.4-6.5) H 11/27/16 07:00 Lymph # 1.9 (1.2-3.4) 11/27/16 07:00 [place] # 0.8 (0.1-0.6) H 11/27/16 07:00 Eos # 0.3 (0.0-0.7) 11/27/16 07:00 Baso # 0.05 K/mm3 (0.0-2.0) 11/27/16 07:00 Neutrophils % (Manual) 79 % (50.0-70.0) H 11/07/16 06:50 Band Neutrophils % 2 % (0-2) 11/07/16 06:50 Lymphocytes % (Manual) 8 % (22.0-35.0) L 11/07/16 06:50 Monocytes % (Manual) 5 % (1.0-6.0) 11/07/16 06:50 Eosinophils % (Manual) 1 % (0.0-3.0) 11/07/16 06:50 Metamyelocytes % 2 % 11/07/16 06:50 Myelocytes % 3 % 11/07/16 06:50 Nucleated RBC % 4 % 10/27/16 05:30 Platelet Evaluation Normal (NORMAL) 10/30/16 05:40 Hypochromasia 1+ 11/07/16 06:50 Anisocytosis (manual) 1+ 11/07/16 06:50 ESR 135 mm/hr (0.0-20.0) H 11/27/16 09:30 Retic Count 2.14 % (0.5-1.5) H 10/27/16 15:10 Hemoglobin A 96.9 Percent (>96.0) 11/03/16 07:00 Hemoglobin A2 2.1 Percent (1.8-3.5) 11/03/16 07:00 Hemoglobin C 0.0 Percent (0.0-0.0) 11/03/16 07:00 Hemoglobin F () <1.0 Percent (<2.0) 11/03/16 07:00 Hemoglobin S 0.0 Percent (0.0-0.0) 11/03/16 07:00 Variant Hemoglobin 0.0 Percent (0.0-0.0) 11/03/16 07:00 Hemoglobinopathy Red Blood Count 3.09 Mill/mcL (3.80-5.10) L 11/03/16 07:00 Hemoglobinopathy Hct 27.2 % (35.0-45.0) L 11/03/16 07:00 Hemoglobinopathy Hgb 8.9 g/dL (11.7-15.5) L 11/03/16 07:00 Hemoglobinopathy MCV 87.9 fL (80.0-100.0) 11/03/16 07:00 Hemoglobinopathy MCH 28.9 pg (27.0-33.0) 11/03/16 07:00 Hemoglobinopathy RDW 16.0 % (11.0-15.0) H 11/03/16 07:00 Hemoglobinopathy Interp See note 11/03/16 07:00 PT 13.2 Seconds (9.9-11.8) H 11/11/16 05:40 INR 1.22 (0.93-1.08) H 11/11/16 05:40 APTT 32.0 Seconds (23.7-30.8) H 11/11/16 05:40 pCO2 13 mm/Hg (35-45) L* 10/26/16 20:30 pO2 90 mm/Hg (30-55) H 10/27/16 05:50 HCO3 3.1 mmol/L (21-28) L* 10/26/16 20:30 ABG pH 6.99 (7.35-7.45) L* 10/26/16 20:30 ABG Total CO2 3.5 mmol.L (22-28) L 10/26/16 20:30 ABG O2 Saturation 99.9 % (95-98) H 10/26/16 20:30 ABG Base Excess -26.6 mmol/L (-2.0-3.0) L 10/26/16 20:30 ABG Potassium 4.3 mmol/L (3.6-5.2) 10/26/16 20:30 VBG pH 7.17 (7.32-7.43) L* 10/27/16 05:50 VBG pCO2 18.0 (40-60) L* 10/27/16 05:50 VBG HCO3 6.6 mmol/l (21-28) L 10/27/16 05:50 VBG Total CO2 5.4 mmol.L (22-28) L 10/26/16 23:45 VBG O2 Sat (Calc) 99.3 % (40-65) H 10/27/16 05:50 VBG Base Excess -20.1 mmol/L (0.0-2.0) L 10/27/16 05:50 VBG Potassium 4.6 mmol/L (3.6-5.2) 10/26/16 23:45 Sodium 130.0 mmol/L (132-148) L 10/26/16 23:45 Chloride 107.0 mmol/L (98-107) 10/26/16 23:45 Glucose 249 mg/dl (65-105) H 10/26/16 23:45 Lactate 0.5 mmol/L (0.7-2.1) L 10/26/16 23:45 FiO2 21.0 % 10/26/16 23:45 Sodium 135 mmol/L (132-148) 11/27/16 07:00 Potassium 4.7 mmol/L (3.6-5.0) 11/27/16 07:00 Chloride 99 mmol/L (95-110) 11/27/16 07:00 Carbon Dioxide 24 mmol/L (21-33) 11/27/16 07:00 Anion Gap 17 (10-20) 11/27/16 07:00 BUN 43 mg/dL (7-21) H 11/27/16 07:00 Creatinine 3.8 mg/dL (0.7-1.2) H 11/27/16 07:00 Est GFR ( Amer) 16 11/27/16 07:00 Est GFR (Non-Af Amer) 13 11/27/16 07:00 POC Glucose (mg/dL) 202 mg/dL (65-110) H 11/27/16 11:37 Random Glucose 125 mg/dL (70-110) H 11/27/16 07:00 Hemoglobin A1c 7.2 % (4.2-6.5) H 11/26/16 05:00 Lactic Acid 0.6 mmol/L (0.7-2.1) L 10/26/16 23:45 Calcium 8.4 mg/dL (8.4-10.5) 11/27/16 07:00 Phosphorus 4.2 mg/dL (2.5-4.5) 11/23/16 06:30 Magnesium 1.9 mg/dL (1.7-2.2) 11/12/16 06:30 Iron 33 ug/dL (45-180) L 11/23/16 06:30 TIBC 184 ug/dL (265-497) L 11/23/16 06:30 % Saturation 18 % (20-55) L 11/23/16 06:30 Ferritin 948.0 ng/mL 11/23/16 06:30 Total Bilirubin 0.6 mg/dL (0.2-1.3) 11/27/16 07:00 AST 23 U/L (14-36) 11/27/16 07:00 ALT 26 U/L (7-56) 11/27/16 07:00 Alkaline Phosphatase 347 U/L (38-126) H 11/27/16 07:00 Lactate Dehydrogenase 427 U/L (333-699) 10/26/16 19:30 Total Creatine Kinase 26 U/L (35-230) L 11/27/16 09:30 Troponin I < 0.01 ng/mL 10/26/16 19:30 C-React Prot High Sens > 15.00 mg/L (1.00-3.00) H 11/27/16 09:30 Total Protein 8.3 g/dL (5.8-8.3) 11/27/16 07:00 Total Protein (PEP) 6.5 g/dL (6.1-8.1) 11/01/16 06:10 Albumin 3.2 g/dL (3.0-4.8) 11/27/16 07:00 Albumin (PEP) 2.1 g/dL (3.8-4.8) L 11/01/16 06:10 Globulin 5.1 gm/dL 11/27/16 07:00 Albumin/Globulin Ratio 0.6 (1.1-1.8) L 11/27/16 07:00 Hwpmz-7-Yyhlbyhhm 0.6 g/dL (0.2-0.3) H 11/01/16 06:10 Wsxdy-2-Sgghkxtmt 0.8 g/dL (0.5-0.9) 11/01/16 06:10 Beta Globulins 17.0 Relative % 10/31/16 18:58 Utmk-2-Qachvone 0.3 g/dL (0.4-0.6) L 11/01/16 06:10 Jbng-3-Jofwpikz 0.5 g/dL (0.2-0.5) 11/01/16 06:10 Gamma Globulins 2.2 g/dL (0.8-1.7) H 11/01/16 06:10 Abnorm Protein Band 1 0.41 g/dL (None Detected) H 11/01/16 06:10 Abnorm Protein Band 2 TEST NOT PERFORMED 11/01/16 06:10 Abnorm Protein Band 3 TEST NOT PERFORMED 11/01/16 06:10 Triglycerides 107 mg/dL (35-160) 11/02/16 09:30 Cholesterol < 50 mg/dL (130-200) L 11/02/16 09:30 LDL Cholesterol Direct < 30 mg/dL (0-129) 11/02/16 09:30 HDL Cholesterol 18 mg/dL (29-60) L 11/02/16 09:30 Lipase 78 U/L (23-300) 10/26/16 23:45 Vitamin B12 692 pg/mL (239-931) 10/29/16 07:00 Folate 6.4 ng/mL 10/29/16 07:00 Procalcitonin 0.52 NG/ML (0.19-0.49) H 11/10/16 09:21 Calcium (PTH Intact) 7.6 mg/dL (8.6-10.2) L 11/23/16 06:30 PTH w/Ion &Tot Calcium 129 pg/mL (14-64) H 11/23/16 06:30 Arterial Blood Potassium 4.3 mmol/L (3.6-5.2) 10/26/16 20:30 Venous Blood Potassium 4.6 mmol/L (3.6-5.2) 10/26/16 23:45 Urine Color Yellow (YELLOW) 11/10/16 11:00 Urine Appearance Turbid (CLEAR) 11/10/16 11:00 Urine pH 7.0 (4.7-8.0) 11/10/16 11:00 Ur Specific [place] 1.020 (1.005-1.035) 11/10/16 11:00 Urine Protein 100 mg/dL (<30 mg/dL) H 11/10/16 11:00 Urine Glucose (UA) 250 mg/dL (NEGATIVE) H 11/10/16 11:00 Urine Ketones Negative mg/dL (NEGATIVE) 11/10/16 11:00 Urine Blood Moderate (NEGATIVE) H 11/10/16 11:00 Urine Nitrate Negative (NEGATIVE) 11/10/16 11:00 Urine Bilirubin Negative (NEGATIVE) 11/10/16 11:00 Urine Urobilinogen 0.2 E.U./dL (<1 E.U./dL) 11/10/16 11:00 Ur Leukocyte Esterase Large Manoj/uL (NEGATIVE) H 11/10/16 11:00 Urine RBC 2 - 5 /hpf (0-2) 11/10/16 11:00 Urine WBC Tntc /hpf (0-6) 11/10/16 11:00 Ur Epithelial Cells 6 - 8 /hpf (0-5) 11/06/16 16:04 Urine Bacteria Mod (NEG) 11/10/16 11:00 Coarse Granular Casts Trace /hpf (0-2) H 11/10/16 11:00 Ur Random Creatinine 22 mg/dL 11/06/16 16:04 U Random Total Protein 121 mg/L 11/06/16 16:04 Ur Random Sodium 130 meq/L 10/27/16 09:00 Urine Collection Time 24 HOURS 11/13/16 11:10 Urine Total Volume 825 mL (800-1400) 11/13/16 11:10 Ur 24 Hour Volume 0.45 liters 10/31/16 18:58 Urine Creatinine 0.23 g/L 10/31/16 18:58 Ur Creatinine 24 Hour 156.8 MG/24HR (800-1800) L 11/13/16 11:10 Creatinine Clearance 1.9 ml/min (80-120) L 11/13/16 11:10 Urine Microalbumin > 190.0 mg/L (0.0-16.6) H 10/27/16 09:00 Ur Total Protein 24 Hr 729 mg/24 h (<150) H 10/31/16 18:58 Protein/Creat Ratio 24h 6923 mg/g creat (</=84) H 10/31/16 18:58 Ur Urea Nitrogen 24 Hr 107 GM/24HR (6-17) H 11/13/16 11:10 Urine Total Protein 1620 mg/L (50-240) H 10/31/16 18:58 Ur Protein 24 Hr Calc 957 mg/24HR (42-225) H 11/13/16 11:10 Urine Albumin (PEP) 27.9 Relative % 10/31/16 18:58 Ur Protein Fractions See note 10/31/16 18:58 Stool Occult Blood Positive (NEGATIVE) H 11/02/16 22:20 Urine Opiates Screen Negative (NEGATIVE) 10/26/16 20:00 Urine Methadone Screen Negative (NEGATIVE) 10/26/16 20:00 Ur Barbiturates Screen Negative (NEGATIVE) 10/26/16 20:00 Ur Phencyclidine Scrn Negative (NEGATIVE) 10/26/16 20:00 Ur Amphetamines Screen Negative (NEGATIVE) 10/26/16 20:00 U Benzodiazepines Scrn Negative (NEGATIVE) 10/26/16 20:00 U Oth Cocaine Metabols Negative (NEGATIVE) 10/26/16 20:00 U Cannabinoids Screen Negative (NEGATIVE) 10/26/16 20:00 Alcohol, Quantitative < 10 mg/dL (0-10) 10/26/16 19:30 DAVID & SPEP Interp See note 11/01/16 06:10 Serum Immunofixation Detected (Not Detected) H 11/01/16 06:10 Complement C3 96.0 mg/dL (88.0-165.0) 10/27/16 05:30 Complement C4 24.2 mg/dL (14.0-44.0) 10/27/16 05:30 Carmine/Lambda Light Chain (()) 11/01/16 06:10 Free Carmine Light Chains 304.1 mg/L (3.3-19.4) H 11/01/16 06:10 Free Lambda Light Chain 221.6 mg/L (5.7-26.3) H 11/01/16 06:10 Free Carmine/Lambda Ratio 1.37 (0.26-1.65) 11/01/16 06:10 Hep Bs Antigen Negative (NEGATIVE) 10/27/16 05:30 Hep Bs Antibody Positive (NEGATIVE) 10/27/16 05:30 Hep B Core Total Ab Non reactive (Non Reactive) 11/27/16 07:00 Hep B Core IgM Ab Negative (NEGATIVE) 10/27/16 05:30 Hepatitis C Antibody Reactive (NEGATIVE) 10/27/16 05:30 Hepatitis C RNA <15 not detected IU/mL (<15) 11/04/16 06:00 HCV RNA Quant (PCR) <1.18 not detected Log IU/mL (<1.18) 11/04/16 06:00 HIV 1&2 Antibody Screen Negative (NEGATIVE) 10/27/16 05:30 Blood Type B POSITIVE 11/11/16 10:51 Blood Type Confirm B POSITIVE 10/27/16 10:00 Antibody Screen Negative 11/11/16 10:51 Crossmatch See Detail 11/11/16 10:51 BBK History Checked Patient has bt 11/11/16 10:51 Discharge Exam - Head Exam Head Exam: NORMAL INSPECTION Discharge Plan - Follow Up Plan Condition: CRITICAL Disposition: AGAINST MEDICAL ADVICE Instructions: Sepsis (ED) Referrals: Kyler Bunch Jr., MD [Primary Care Provider] -
== END 2016-11-27 17:20 | disposition left against medical advice (07) | DRG 581 ==
LOC: ED 18:41 → ERH 20:38 → CCU 22:20 → 2RNO 10-28 23:50 → 3RSO 11-07 21:30 → 5RSO 11-25 19:46
PROVIDERS: ADMIT Internal Medicine; ATTEND Internal Medicine
PROC: 5A1D70Z Performance of Urinary Filtration, Intermittent, Less than 6 Hours Per Day (ICD-10-PCS; 2016-10-26)
PROC: 05HM33Z Insertion of Infusion Device into Right Internal Jugular Vein, Percutaneous Approach (ICD-10-PCS; 2016-10-27)
PROC: 30233N1 Transfusion of Nonautologous Red Blood Cells into Peripheral Vein, Percutaneous Approach (ICD-10-PCS; 2016-10-27)
PROC: 05H533Z Insertion of Infusion Device into Right Subclavian Vein, Percutaneous Approach (ICD-10-PCS; 2016-10-31)
PROC: 0JBR0ZZ Excision of Left Foot Subcutaneous Tissue and Fascia, Open Approach (ICD-10-PCS; principal; 2016-10-31 08:45)
PROC: 0TB13ZX Excision of Left Kidney, Percutaneous Approach, Diagnostic (ICD-10-PCS; 2016-11-14)
PROC: 0T903ZX Drainage of Right Kidney, Percutaneous Approach, Diagnostic (ICD-10-PCS; 2016-11-22)
DX: A41.9 Sepsis, unspecified organism (principal); N17.0 Acute kidney failure with tubular necrosis; R65.21 Severe sepsis with septic shock; N15.1 Renal and perinephric abscess; N18.4 Chronic kidney disease, stage 4 (severe); E87.0 Hyperosmolality and hypernatremia; I13.0 Hypertensive heart and chronic kidney disease with heart failure and stage 1 through stage 4 chronic kidney disease, or unspecified chronic kidney disease; I42.9 Cardiomyopathy, unspecified; I50.22 Chronic systolic (congestive) heart failure; L89.611 Pressure ulcer of right heel, stage 1; N10 Acute pyelonephritis; E87.2 Acidosis; E11.21 Type 2 diabetes mellitus with diabetic nephropathy; E11.42 Type 2 diabetes mellitus with diabetic polyneuropathy; E11.51 Type 2 diabetes mellitus with diabetic peripheral angiopathy without gangrene; E11.621 Type 2 diabetes mellitus with foot ulcer; E11.22 Type 2 diabetes mellitus with diabetic chronic kidney disease; L97.529 Non-pressure chronic ulcer of other part of left foot with unspecified severity; L97.519 Non-pressure chronic ulcer of other part of right foot with unspecified severity; L02.612 Cutaneous abscess of left foot; E11.65 Type 2 diabetes mellitus with hyperglycemia; L03.115 Cellulitis of right lower limb; E87.6 Hypokalemia; E11.649 Type 2 diabetes mellitus with hypoglycemia without coma; E11.69 Type 2 diabetes mellitus with other specified complication; M86.9 Osteomyelitis, unspecified; R07.89 Other chest pain; E78.5 Hyperlipidemia, unspecified; D63.1 Anemia in chronic kidney disease; Z99.3 Dependence on wheelchair; Z74.01 Bed confinement status; Z89.422 Acquired absence of other left toe(s); Z86.718 Personal history of other venous thrombosis and embolism; Z79.4 Long term (current) use of insulin; Z91.19 Patient's noncompliance with other medical treatment and regimen; Z88.1 Allergy status to other antibiotic agents